=== PATIENT | female | born 1935 | race Caucasian/White ===

== ENCOUNTER 2018-01-05 08:27 | Outpatient (RCR) | payer MEDICARE, OTHER, SELFPAY ==
[2017-12-29 09:52] LABS: International Normalized Ratio 1.6; Prothrombin Time (Protime)PT. 18.6 SECONDS (11.7-14.9)
[2018-01-05 10:12] LABS: International Normalized Ratio 2.3; Prothrombin Time (Protime)PT. 25.2 SECONDS (11.7-14.9)
== END 2018-01-05 10:00 | disposition home or self-care (01) ==
LOC: LAB 08:27
PROVIDERS: Internal Medicine Cardiovascular Disease; Family Provider Family Medicine; PCP Family Medicine; Visit Provider Internal Medicine Cardiovascular Disease
DX: I48.0 Paroxysmal atrial fibrillation (principal); Z79.01 Long term (current) use of 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s
CPT/HCPCS: 36415; 85610

== ENCOUNTER 2018-01-19 08:23 | Outpatient (RCR) | payer MEDICARE, OTHER, SELFPAY ==
[2018-01-19 10:32] LABS: International Normalized Ratio 2.4; Prothrombin Time (Protime)PT. 26.3 SECONDS (11.7-14.9)
== END 2018-01-19 10:00 | disposition home or self-care (01) ==
LOC: LAB 08:23
PROVIDERS: Family Provider Family Medicine; PCP Family Medicine; Visit Provider Internal Medicine Cardiovascular Disease
DX: I48.0 Paroxysmal atrial fibrillation (principal); Z79.01 Long term (current) use of 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s
CPT/HCPCS: 36415; 85610

== ENCOUNTER → 2018-02-19 09:38 | Outpatient (CLI) | payer MEDICARE, OTHER, SELFPAY ==
[2018-02-19 12:42] LABS: Absolute Lymphocyte Count 1.36 X10^3/ul (0.83-4.51); Absolute Neutrophil Count 2.3 X10^3/uL (2.0-7.7); Basophil# 0.02 X10^3/uL; Basophil% 0.5 % (0-1); Eosinophil# 0.08 X10^3/uL; Hematocrit 36.9 % (37-47); Hemoglobin 12.1 g/dl (12.0-15.0); Lymphocyte # 1.36 X10^3/ul (4.0); Lymphocyte % 33.3 % (19-41); Mean Corp Hgb Conc 32.8 g/gl (32-36); Mean Corpuscular Hgb 31.7 pg (27.0-32.0); Mean Corpuscular Volume 96.6 fL (81-99); Mean Platelet Vol. 10.1 fl (6.2-12.0); Monocyte# 0.34 X10^3/uL; Monocyte% 8.3 % (0-10); Neutrophil # 2.28 X10^3/uL (2.7-7.7); Neutrophil % 55.9 % (47-70); POSITIVE COUNT NO; POSITIVE DIFFERENTIAL NO; POSITIVE MORPHOLOGY NO; Platelet Count 218 K/mm3 (150-450); RBC Distribution Width CV 13.2 % (11.6-14.6); Red Blood Count 3.82 M/mm3 (4.2-5.4); White Blood Count 4.1 K/mm3 (4.4-11.0)
[2018-02-19 12:49] LABS: Vitamin B12 1745 pg/mL (211-911); Vitamin D,25 Hydroxy 76.8 ng/mL (29.95-100.01)
[2018-02-19 12:57] LABS: ALB/GLOB Ratio 1.2 RATIO (0.9-2.4); AST(SGOT) 18 U/L (15-37); Alanine Aminotransfer ALT/SGPT 24 U/L (13-56); Albumin, Serum 3.8 g/dL (3.2-5.0); Alkaline Phosphatase 85 U/L (45-117); Anion Gap 7 (5-15); BUN 13 mg/dL (7-18); BUN/Creat Ratio 17.6 RATIO (10-20); Calcium,Total 9.1 mg/dL (8.5-10.1); Chloride 105 mmol/L (98-107); Cholesterol 153 mg/dL (200); Creatinine, Serum 0.74 mg/dL (0.55-1.02); EST Glomerular Filtration Rate 80 mL/min (>60); Est Glom Filt Rate - Afr Amer 97 mL/min (>60); Globulin 3.3 g/dL (2.2-4.2); Glucose 87 mg/dL (74-106); High Density Lipoprotein 48 mg/dL; Potassium 4.4 mmol/L (3.5-5.1); Protein, Total 7.1 g/dL (6.4-8.2); Sodium Level 141 mmol/L (136-145); T4 Free Direct 1.57 ng/dL (0.76-1.46); Thyroid Stim Hormone (TSH) 1.85 uIU/mL (0.358-3.74); Triglycerides 92 mg/dL; Very Low Density Lipoprotein 18 mg/dL (5-40)
== END ==
PROVIDERS: Visit Provider Family Medicine
DX: Z00.01 Encounter for general adult medical examination with abnormal findings (principal); I10 Essential (primary) hypertension; E78.5 Hyperlipidemia, unspecified; E03.9 Hypothyroidism, unspecified; E55.9 Vitamin D deficiency, unspecified; R79.89 Other specified abnormal findings of blood chemistry
CPT/HCPCS: 36415; 80053; 80061; 82306; 82607; 84439; 84443; 85025

== ENCOUNTER 2018-02-23 08:26 | Outpatient (RCR) | payer MEDICARE, OTHER, SELFPAY ==
[2018-02-09 11:12] LABS: International Normalized Ratio 1.7; Prothrombin Time (Protime)PT. 19.8 SECONDS (11.7-14.9)
[2018-02-23 10:56] LABS: International Normalized Ratio 2.4; Prothrombin Time (Protime)PT. 26.6 SECONDS (11.7-14.9)
== END 2018-02-23 10:00 | disposition home or self-care (01) ==
LOC: MTLAB 08:26
PROVIDERS: Family Provider Family Medicine; PCP Family Medicine; Referring Provider Internal Medicine Cardiovascular Disease; Visit Provider Internal Medicine Cardiovascular Disease
DX: I48.0 Paroxysmal atrial fibrillation (principal); Z79.01 Long term (current) use of 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s
CPT/HCPCS: 36415; 85610

== ENCOUNTER 2018-04-06 07:42 | Outpatient (RCR) | payer MEDICARE, OTHER, SELFPAY ==
[2018-03-09 10:35] LABS: International Normalized Ratio 2.2; Prothrombin Time (Protime)PT. 24.5 SECONDS (11.7-14.9)
[2018-04-06 10:16] LABS: International Normalized Ratio 2.2; Prothrombin Time (Protime)PT. 24.5 SECONDS (11.7-14.9)
== END 2018-04-06 08:00 | disposition home or self-care (01) ==
LOC: MTLAB 07:42
PROVIDERS: Family Provider Family Medicine; PCP Family Medicine; Referring Provider Internal Medicine Cardiovascular Disease; Visit Provider Internal Medicine Cardiovascular Disease
DX: I48.0 Paroxysmal atrial fibrillation (principal); Z79.01 Long term (current) use of 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s
CPT/HCPCS: 36415; 85610

== ENCOUNTER 2018-04-17 06:11 | Day surgery (SDC) | payer MEDICARE, OTHER, SELFPAY ==
[2018-02-27 13:15] VITALS: BMI 27.8
--- NOTE | 2018-04-17 | COLBX_PTH ---
PATIENT: ELIZABETH CASTRO LOC: EN U#:[id number] AGE/SX: 82/F ROOM: RE04/17/[address]: Dr. Antoni Valerio MD : 1935 BED: DIS: 04/17/2018 SPEC #: [id number] RECD: 04/17/18 13:16 STATUS: JANICE RONAN #: [id number] AUSTEN: 04/17/18 00:[address]: Antoni Valerio DEPT: SURGICAL PATHOLOGY RECD BY: Ministerio Michelle ENTERED: 04/17/18 13:17 SP TYPE: COLON BX OTHR DR: Dr. Luis M Lama DO Tissues: Sigmoid colon biopsy Procedures: Surgery Specimen Level IV HEADER OPERATION: Colonoscopy PRE-OP DIAGNOSIS: Screening, family history of colon cancer TISSUE SUBMITTED: Biopsy polyp mid sigmoid MICROSCOPIC DIAGNOSIS Polyp mid sigmoid, biopsy: Tubular adenoma. SJ:toña 04/18/18 MICROSCOPIC DESCRIPTION Slides are reviewed. GROSS DESCRIPTION Received in fixative is one container labeled with the patient's name and designated biopsy polyp mid sigmoid. The specimen consists of multiple irregular fragments of light wynn soft tissue that in aggregate measure 0.4 x 0.4 x 0.1 cm. The specimen is totally submitted in one cassette. / SJ:toña 04/17/18 TC:1 CPT: 35345
--- NOTE | 2018-04-17 06:26 | PCM.HP.STD ---
Problem List (1) Family history of colon cancer in mother Status: Acute History of Present Illness Date of Admission: 04/17/18 The patient is a 82 year old F who I saw in the office on February 27, 2018. She presented at that time for consideration of screening colonoscopy based upon family history of her mother having had colon cancer. The patient's most recent colonoscopy was 2008. Because of the cystocele rectocele she did have a barium enema in 2011 demonstrating diverticulosis. She has had some nonspecific intermittent right lower quadrant pain. She has had a recent cardiac ablation performed at [facility] for atrial fibrillation. She for the past year was on Xarelto and more recently has been converted over to Coumadin. She denies bright red blood per rectum or melena. 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) Z79.01 LETICIA (obstructive sleep apnea) (Chronic) Hypertension (Chronic) I10 Hypercholesterolemia (Chronic) E78.00 Paroxysmal A-fib (Chronic) I48.0 Excessive sleepiness G47.10 Family history of premature coronary heart disease Z82.49 GERD (gastroesophageal reflux disease) K21.9 Long-term use of high-risk medication Z79.899 Nonsustained ventricular tachycardia I47.2 Obstructive sleep apnea G47.33 Palpitations R00.2 Patent foramen ovale Q21.1 Peripheral neuropathy G62.9 Snoring R06.83 Supraventricular tachycardia I47.1 H/O: hysterectomy Z90.710 Chest pain, unspecified R07.9 Allergies enoxaparin [From Lovenox] Allergy (Verified 04/16/18 09:02) Rash Sulfa (Sulfonamide Antibiotics) Allergy (Verified 04/16/18 09:02) Hives Home Medications: Ambulatory Orders Medication Instructions Recorded Cholecalciferol (Vitamin D3) 5,000 unit PO DAILY 09/12/16 [Vitamin D3] Latanoprost 0.005% [Xalatan 1 drp QHS 09/12/16 Opthalmic] Levothyroxine [Synthroid] 75 mcg PO DAILY 09/12/16 Losartan Potassium [Cozaar] 100 mg PO DAILY 09/12/16 Timolol 0.25% [Timoptic] 1 drp EACH EYE BID 09/12/16 levomefolate Ca 3 mg-B6 35 1 cap PO .daily ea 04/19/17 mg-meB12 2 mg-algal oil 90.314 mg capsule polyethylene glycol 3350 17 17 g PO QDAY PRN 04/19/17 gram/dose oral powder simvastatin 20 mg tablet 20 mg PO QODAY #45 tab 10/03/17 carvedilol 6.25 mg tablet 6.25 mg PO BID #180 tab 12/29/17 Warfarin Sodium [Coumadin] 4 mg PO SUMOTUWETHSA 04/16/18 Warfarin [Coumadin ([facility])] 6 mg PO FR 04/16/18 Surgical History: Surgical History (Last Reviewed 02/27/18 @ 13:15 by Jazmine Cohen) History of radiofrequency ablation procedure for cardiac arrhythmia (Chronic) Onset Date: ~08/17/17 Z98.890 @ [facility] [address] Shaun Rubio 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 teeth started breaking at the roots, patient got a couple crowns and is getting a bridge H/O section Z98.891 History of total right knee replacement Z96.651 S/P appendectomy Z90.49 S/P arthroscopic surgery of left knee Z98.890 S/P excision of lipoma Z98.890, Z86.018 S/P lateral meniscal repair Z98.890 Smoking Status: Former smoker Tobacco Use: Non-smoker Review of Systems Constitutional: Denies: Anorexia HEENT: Denies: Difficulty Swallowing Cardiovascular: Denies: Chest Pain Respiratory: Denies: Cough Gastrointestinal: Denies: Abdominal Pain, Melena Endocrine: Denies: Change in Body Habitus VTE Information - Inpt Only VTE Present on Admission: No - Physical Exam General: Alert, Oriented x3, Cooperative, No apparent distress HEENT: Atraumatic Oral: Moist Mucosa Neck: Supple Lungs: Clear to auscultation Cardiovascular: Regular rate, Regular Rhythm Abdomen: Bowel Sounds Present, Soft, Non Tender Extremities: No Calf Tenderness Psych/Mental Status: Normal Affect Body Mass Index (BMI) 27.8 Assessment/Plan All Active Problems (Last Reviewed 02/27/18 @ 13:15 by Jazmine Cohen) Family history of colon cancer in mother (Acute) I recommended the patient a screening colonoscopy with possible biopsy or polypectomy as indicated. This is based upon family history with her mother having had colon cancer. The patient was to hold her Coumadin for 2 days preprocedure. We will proceed as noted. Antoni Valerio M.D., F.A.C.S.
--- NOTE | 2018-04-17 06:29 | HP.PCM_ITS ---
Problem List (1) Family history of colon cancer in mother Status: Acute History of Present Illness Date of Admission: 04/17/18 The patient is a 82 year old F who I saw in the office on February 27, 2018. She presented at that time for consideration of screening colonoscopy based upon family history of her mother having had colon cancer. The patient's most recent colonoscopy was 2008. Because of the cystocele rectocele she did have a barium enema in 2011 demonstrating diverticulosis. She has had some nonspecific intermittent right lower quadrant pain. She has had a recent cardiac ablation performed at [facility] for atrial fibrillation. She for the past year was on Xarelto and more recently has been converted over to Coumadin. She denies bright red blood per rectum or melena. 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.01 LETICIA (obstructive sleep apnea) (Chronic) Hypertension (Chronic) I10 Hypercholesterolemia (Chronic) E78.00 Paroxysmal A-fib (Chronic) I48.0 Excessive sleepiness G47.10 Family history of premature coronary heart disease Z82.49 GERD (gastroesophageal reflux disease) K21.9 Long-term use of high-risk medication Z79.899 Nonsustained ventricular tachycardia I47.2 Obstructive sleep apnea G47.33 Palpitations R00.2 Patent foramen ovale Q21.1 Peripheral neuropathy G62.9 Snoring R06.83 Supraventricular tachycardia I47.1 H/O: hysterectomy Z90.710 Chest pain, unspecified R07.9 Allergies enoxaparin [From Lovenox] Allergy (Verified 04/16/18 09:02) Rash Sulfa (Sulfonamide Antibiotics) Allergy (Verified 04/16/18 09:02) Hives Home Medications: Ambulatory Orders Medication Instructions Recorded Cholecalciferol (Vitamin D3) 5,000 unit PO DAILY 09/12/16 [Vitamin D3] Latanoprost 0.005% [Xalatan 1 drp QHS 09/12/16 Opthalmic] Levothyroxine [Synthroid] 75 mcg PO DAILY 09/12/16 Losartan Potassium [Cozaar] 100 mg PO DAILY 09/12/16 Timolol 0.25% [Timoptic] 1 drp EACH EYE BID 09/12/16 levomefolate Ca 3 mg-B6 35 1 cap PO .daily ea 04/19/17 mg-meB12 2 mg-algal oil 90.314 mg capsule polyethylene glycol 3350 17 17 g PO QDAY PRN 04/19/17 gram/dose oral powder simvastatin 20 mg tablet 20 mg PO QODAY #45 tab 10/03/17 carvedilol 6.25 mg tablet 6.25 mg PO BID #180 tab 12/29/17 Warfarin Sodium [Coumadin] 4 mg PO SUMOTUWETHSA 04/16/18 Warfarin [Coumadin ([facility])] 6 mg PO FR 04/16/18 Surgical History: Surgical History (Last Reviewed 02/27/18 @ 13:15 by Jazmine Cohen) History of radiofrequency ablation procedure for cardiac arrhythmia (Chronic) Onset Date: ~08/17/17 Z98.890 @ [facility] Dr Shaun Rubio 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 teeth started breaking at the roots, patient got a couple crowns and is getting a bridge H/O section Z98.891 History of total right knee replacement Z96.651 S/P appendectomy Z90.49 S/P arthroscopic surgery of left knee Z98.890 S/P excision of lipoma Z98.890, Z86.018 S/P lateral meniscal repair Z98.890 Smoking Status: Former smoker Tobacco Use: Non-smoker Review of Systems Constitutional: Denies: Anorexia HEENT: Denies: Difficulty Swallowing Cardiovascular: Denies: Chest Pain Respiratory: Denies: Cough Gastrointestinal: Denies: Abdominal Pain, Melena Endocrine: Denies: Change in Body Habitus VTE Information - Inpt Only VTE Present on Admission: No - Physical Exam General: Alert, Oriented x3, Cooperative, No apparent distress HEENT: Atraumatic Oral: Moist Mucosa Neck: Supple Lungs: Clear to auscultation Cardiovascular: Regular rate, Regular Rhythm Abdomen: Bowel Sounds Present, Soft, Non Tender Extremities: No Calf Tenderness Psych/Mental Status: Normal Affect Body Mass Index (BMI) 27.8 Assessment/Plan All Active Problems (Last Reviewed 02/27/18 @ 13:15 by Jazmine Cohen) Family history of colon cancer in mother (Acute) I recommended the patient a screening colonoscopy with possible biopsy or polypectomy as indicated. This is based upon family history with her mother having had colon cancer. The patient was to hold her Coumadin for 2 days preprocedure. We will proceed as noted. Antoni Valerio M.D., F.A.C.S.
[2018-04-17 06:56] LABS: Prothrombin Time Fingerstick 19.4 SEC (11.9-14.4)
[2018-04-17 06:59] VITALS: BP 127/72; PULSE 64; RESP 16; TEMP 36.7; O2SAT 100; BMI 27.9
[2018-04-17 07:57] VITALS: BP 107/50; BP 127/72; PULSE 65; RESP 16; TEMP 36.4; O2SAT 99
--- NOTE | 2018-04-17 08:01 | OP.ENDO_ITS ---
Patient Name: Sasha Cheatham Procedure Date: 04/17/2018 7:24 AM Date of : 1935 Age: 82 Procedure: Colonoscopy Indications: Family history of colon cancer in a first-degree relative Providers: Antoni Valerio MD Referring MD: Antoni Valerio MD Medicines: See the Anesthesia note for documentation of the administered medications Patient Profile: Last Colonoscopy: 2008. Complications: No immediate complications. Procedure: Pre-Anesthesia Assessment: - Prior to the procedure, a History and Physical was performed, and patient medications and allergies were reviewed. The patient's tolerance of previous anesthesia was also reviewed. The risks and benefits of the procedure and the sedation options and risks were discussed with the patient. All questions were answered, and informed consent was obtained. Prior Anticoagulants: The patient has taken no previous 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 or antiplatelet agents. ASA Grade Assessment: II - A patient with mild systemic disease. After reviewing the risks and benefits, the patient was deemed in satisfactory condition to undergo the procedure. After I obtained informed consent, the scope was passed under direct vision. Throughout the procedure, the patient's blood pressure, pulse, and oxygen saturations were monitored continuously. The pediatric colonoscope was introduced through the anus and advanced to the cecum, identified by appendiceal orifice and ileocecal valve. The colonoscopy was performed without difficulty. The patient tolerated the procedure well. The quality of the bowel preparation was good. The ileocecal valve and the appendiceal orifice were photographed. Scope In: 7:34:46 AM Scope Withdrawal Time 0 hours 16 minutes 13 seconds Scope Out: 7:55:12 AM Total Procedure Duration Time 0 hours 20 minutes 26 seconds Findings: Hemorrhoids were found on perianal exam. Multiple diverticula were found in the sigmoid colon and descending colon. A 3 mm polyp was found in the mid sigmoid colon. The polyp was sessile. The polyp was removed with a cold biopsy forceps. Resection and retrieval were complete. Impression: - Hemorrhoids found on perianal exam. - Diverticulosis in the sigmoid colon and in the descending colon. - One 3 mm polyp in the mid sigmoid colon, removed with a cold biopsy forceps. Resected and retrieved. This was on a sharp curvature and very difficult to access. Multiple biopsies obtained Recommendation: - Resume previous diet. - Continue present medications. - Repeat colonoscopy in 5 years for surveillance. - Telephone my office for pathology results in 1 week. Procedure Code(s): --- Professional --- 15735, Colonoscopy, flexible; with biopsy, single or multiple Diagnosis Code(s): --- Professional --- K64.9, Unspecified hemorrhoids D12.5, Benign neoplasm of sigmoid colon Z80.0, Family history of malignant neoplasm of digestive organs K57.30, Diverticulosis of large intestine without perforation or abscess without bleeding CPT copyright 2017 [employer]. All rights reserved. The codes documented in this report are preliminary and upon certified medical coder review may be revised to meet current compliance requirements. Antoni Valerio MD 04/17/2018 8:00:34 AM This report has been signed electronically. Number of Addenda: 0 Note Initiated On: 04/17/2018 7:24 AM
[2018-04-17 08:03] VITALS: BP 127/72; BP 92/76; PULSE 67; RESP 18; O2SAT 99
[2018-04-17 08:08] VITALS: BP 123/64; BP 127/72; PULSE 67; RESP 16; O2SAT 99
[2018-04-17 08:15] VITALS: BP 127/72; BP 132/58; PULSE 68; RESP 16; TEMP 36.2; O2SAT 100
[2018-04-17 08:24] VITALS: BP 127/72
--- OUTSIDE RECORDS SUMMARY | 2018-06-03 05:09 | XMS RPT_ITS ---
:1935 Author Organization OHIP Support Name Relationship Address Phone SIVA CHEATHAM Unavailable [address] + [address] [place] [address] LESLI, JOE Unavailable [address] + [place] [address] R Unavailable Unavailable Unavailable EDINGTON, SIVA Unavailable [address] + [address] [place] [address] LESLI, JOE Unavailable [address] + [place] [address] R Unavailable Unavailable Unavailable EDINGTON, SIVA Unavailable [address] + [address] [place] [address] LESLI, JOE Unavailable [address] + [place] [address] R Unavailable Unavailable Unavailable EDINGTON, SIVA Unavailable [address] + [address] [place] [address] LESLI, JOE Unavailable [address] + [place] [address] R Unavailable Unavailable Unavailable EDINGTON, SIVA Unavailable [address] + [address] [place] [address] LESLI, JOE Unavailable [address] + [place] [address] R Unavailable Unavailable Unavailable EDINGTON, SIVA Unavailable [address] + [address] [place] [address] LESLI, JOE Unavailable [address] + [place] [address] R Unavailable Unavailable Unavailable EDINGTON, SIVA Unavailable [address] + [address] [place] [address] LESLI, JOE Unavailable [address] + [place] [address] R Unavailable Unavailable Unavailable EDINGTON, SIVA Unavailable [address] [facility] [address] [place] [address] LESLI JOE Unavailable [address] + [place] [address] R Unavailable Unavailable Unavailable EDINGTON, SIVA Unavailable [address] [facility] + [address] [place] [address] LESLI JOE Unavailable [address] + [place] [address] R Unavailable Unavailable Unavailable EDINGTON, SIVA Unavailable [address] [facility] + [address] [place] [address] LESLI JOE Unavailable [address] + [place] [address] R Unavailable Unavailable Unavailable EDINGTON, SIVA Unavailable [address] [facility] + [address] [place] [address] LESLI JOE Unavailable [address] + [place] [address] R Unavailable Unavailable Unavailable Care Team Providers Name Role Phone SHAUN RUBIO Referring Unavailable SHAUN RUBIO Referring Unavailable SHAUN RUBIO Referring Unavailable LIVIER BROWN ([facility]) Attending Unavailable SHAUN RUBIO Referring Unavailable SHAUN RUBIO Referring Unavailable SHAUN RUBIO Admitting Unavailable SHAUN RUBIO Attending Unavailable SHAUN RUBIO Referring Unavailable SHAUN RUBIO Referring Unavailable SHAUN RUBIO Referring Unavailable SHAUN RUBIO Referring Unavailable SHAUN RUBIO Attending Unavailable SHAUN RUBIO Referring Unavailable SHAUN RUBIO Referring Unavailable Antoni Valerio Attending Unavailable KelbyLuis M Primary Care Unavailable Referred, Self Attending Unavailable Subhash Maher Attending Unavailable Subhash Maher Referring Unavailable Kelby, Luis M Primary Care Unavailable Subhash Maher Attending Unavailable Subhash Maher Referring Unavailable KelbyLuis M hood Primary Care Unavailable Subhash Maher Attending Unavailable Subhash Maher Referring Unavailable Kelby, Luis M Primary Care Unavailable Subhash Maher Attending Unavailable Subhash Maher Referring Unavailable Kelby, Luis M Primary Care Unavailable Cebul, Antoni Attending Unavailable Cebul, Antoni Referring Unavailable Kelby, Luis M Primary Care Unavailable Subhash Maher Attending Unavailable Subhash Maher Referring Unavailable Kelby, Luis M Primary Care Unavailable Cebul, Antoni Attending Unavailable Kelby, Luis M Referring Unavailable Kelby, Luis M Attending Unavailable Subhash Maher Attending Unavailable Subhash Maher Referring Unavailable Kelby, Luis M Primary Care Unavailable PROBLEMS PROBLEMS DATE TYPE CONDITION / CODE ATTENDING STATUS SOURCE 05/07/2018 Unknown I48.0 - Paroxysmal Subhash Maher Active [facility] atrial fibrillation Community / I48.0(ICD-10) Hospital Repository 05/22/2018 Unknown Z80.0 - Family CebuAntoni daniel Active [place] history of malignant Community neoplasm of Hospital digestive organs / Repository Z80.0(ICD-10) 05/22/2018 Unknown D12.5 - Benign CebuAntoni daniel 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 [facility] colon / Hospital D12.5(ICD-10) Repository 05/22/2018 Unknown K64.9 - Unspecified CebuAntoni daniel Active [facility] hemorrhoids / [facility] K64.9(ICD-10) Hospital Repository 05/22/2018 Unknown K57.30 - CebulAntoni Active [facility] Diverticulosis of [facility] large intestine Hospital without perforation Repository or abscess without bleeding / K57.30(ICD-10) 03/08/2018 Unknown Z79.01 - oysterman Subhash Maher Active [facility] (current) use of [facility] 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s / Hospital Z79.01(ICD-10) Repository 11/29/2017 Active Encounter for NA Active [place] examination for [facility] Main normal comparison [place] and control in Repository clinical research program / Z00.6(ICD-10) 05/24/2017 Active Paroxysmal atrial NA Active [place] fibrillation / [facility] Main I48.0(ICD-10) [place] Repository PROCEDURES PROCEDURES No Procedure Records FoundRESULTS RESULTS PROTHROMBIN TIME W/INR Collected: 05/04/2018 Status: F Source: [place] 8:02 AM [facility] REPOSITORY TYPE CODE TESTS RESULT OUT OF RANGE REFERENCE UNITS LAB L300.4150 11.7-14.9 SECONDS High PROTIME 25.8 LAB L300.4200 Normal INR 2.3 Performed By: #### L300.3900 #### [place] [facility] [place], [address] HISTORY AND PHYSICAL Observed: 04/18/2018 Status: F Source: [place] [facility] 9:00 AM [facility] REPOSITORY [facility] Medical Records Department [address] [place] [address] History and Physical 04/17/18 0626 MR#: [id number] Acct: [id number] Name: ELIZABETH CHEATHAM Rep #: [id number] : 1935 82 From: Antoni Valerio MD PCP: Luis M Lama DO Status: DEP [facility] Y Location: EN Problem List (1) Family history of colon cancer in mother Status: Acute History of Present Illness Date of Admission: 04/17/18 The patient is a 82 year old F who I saw in the office on February 27, 2018. She presented at that time for consideration of screening colonoscopy based upon family history of her mother having had colon cancer. The patient's most recent colonoscopy was 2008. Because of the cystocele rectocele she did have a barium enema in 2011 demonstrating diverticulosis. She has had some nonspecific intermittent right lower quadrant pain. She has had a recent cardiac ablation performed at [facility] for atrial fibrillation. She for the past year was on Xarelto and more recently has been converted over to Coumadin. She denies bright red blood per rectum or melena. 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 use of 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 (Chronic) Z79.01 LETICIA (obstructive sleep apnea) (Chronic) Hypertension (Chronic) I10 Hypercholesterolemia (Chronic) E78.00 Paroxysmal A-fib (Chronic) I48.0 Excessive sleepiness G47.10 Family history of premature coronary heart disease Z82.49 GERD (gastroesophageal reflux disease) K21.9 Long-term use of high-risk medication Z79.899 Nonsustained ventricular tachycardia I47.2 Obstructive sleep apnea G47.33 Palpitations R00.2 Patent foramen ovale Q21.1 Peripheral neuropathy G62.9 Snoring R06.83 Supraventricular tachycardia I47.1 H/O: hysterectomy Z90.710 Chest pain, unspecified R07.9 Allergies enoxaparin [From Lovenox] Allergy (Verified 04/16/18 09:02) Rash Sulfa (Sulfonamide Antibiotics) Allergy (Verified 04/16/18 09:02) Hives Home Medications: Ambulatory Orders Medication Instructions Recorded Cholecalciferol (Vitamin D3) 5,000 unit PO DAILY 09/12/16 [Vitamin D3] Latanoprost 0.005% [Xalatan 1 drp QHS 09/12/16 Surgical History: Surgical History (Last Reviewed 02/27/18 @ 13:15 by Jazmine Cohen) History of radiofrequency ablation procedure for cardiac arrhythmia (Chronic) Onset Date: 08/17/17 Z98.890 @ [facility] [address] Shaun Rubio 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 teeth started breaking at the roots, patient got a couple crowns and is getting a bridge H/O section Z98.891 History of total right knee replacement Z96.651 S/P appendectomy Z90.49 S/P arthroscopic surgery of left knee Z98.890 S/P excision of lipoma Z98.890, Z86.018 S/P lateral meniscal repair Z98.890 Smoking Status: Former smoker Tobacco Use: Non-smoker Review of Systems Constitutional: Denies: Anorexia HEENT: Denies: Difficulty Swallowing Cardiovascular: Denies: Chest Pain Respiratory: Denies: Cough Gastrointestinal: Denies: Abdominal Pain, Melena Endocrine: Denies: Change in Body Habitus VTE Information - Inpt Only VTE Present on Admission: No - Physical Exam General: Alert, Oriented x3, Cooperative, No apparent distress HEENT: Atraumatic Oral: Moist Mucosa Neck: Supple Lungs: Clear to auscultation Cardiovascular: Regular rate, Regular Rhythm Abdomen: Bowel Sounds Present, Soft, Non Tender Extremities: No Calf Tenderness Psych/Mental Status: Normal Affect Body Mass Index (BMI) 27.8 Assessment/Plan All Active Problems (Last Reviewed 02/27/18 @ 13:15 by Jazmine Cohen) Family history of colon cancer in mother (Acute) I recommended the patient a screening colonoscopy with possible biopsy or polypectomy as indicated. This is based upon family history with her mother having had colon cancer. The patient was to hold her Coumadin for 2 days preprocedure. We will proceed as noted. Antoni Valerio M.D., F.A.C.S. 04/18/18 0900 <Electronically signed by Antoni Valerio MD> Date Antoni Valerio MD Cosigner Signature: Date (if applicable) CC: Luis M Lama DO; Antoni Valerio MD Signed OPERATIVE REPORT - Observed: 04/17/2018 Status: F Source: [place] [facility] 8:01 AM [facility] REPOSITORY [facility] Medical Records Department [address] [place] [address] Operative Report - Endoscopy MR#: [id number] Acct: [id number] Name: ELIZABETH CHEATHAM Rep #: [id number] : 1935 82 From: Antoni Valerio MD PCP: Luis M Lama DO Status: [facility] Patient Name: Elizabeth Cheatham Procedure Date: 04/17/2018 7:24 AM Date of : 1935 Age: 82 Procedure: Colonoscopy Indications: Family history of colon cancer in a first-degree relative Providers: Antoni Valerio MD Referring MD: Antoni Valerio MD Medicines: See the Anesthesia note for documentation of the administered medications Patient Profile: Last Colonoscopy: 2008. Complications: No immediate complications. Procedure: Pre-Anesthesia Assessment: - Prior to the procedure, a History and Physical was performed, and patient medications and allergies were reviewed. The patient's tolerance of previous anesthesia was also reviewed. The risks and benefits of the procedure and the sedation options and risks were discussed with the patient. All questions were answered, and informed consent was obtained. Prior Anticoagulants: The patient has taken no previous 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 or antiplatelet agents. ASA Grade Assessment: II - A patient with mild systemic disease. After reviewing the risks and benefits, the patient was deemed in satisfactory condition to undergo the procedure. After I obtained informed consent, the scope was passed under direct vision. Throughout the procedure, the patient's blood pressure, pulse, and oxygen saturations were monitored continuously. The pediatric colonoscope was introduced through the anus and advanced to the cecum, identified by appendiceal orifice and ileocecal valve. The colonoscopy was performed without difficulty. The patient tolerated the procedure well. The quality of the bowel preparation was good. The ileocecal valve and the appendiceal orifice were photographed. Scope In: 7:34:46 AM Scope Withdrawal Time 0 hours 16 minutes 13 seconds Scope Out: 7:55:12 AM Total Procedure Duration Time 0 hours 20 minutes 26 seconds Findings: Hemorrhoids were found on perianal exam. Multiple diverticula were found in the sigmoid colon and descending colon. A 3 mm polyp was found in the mid sigmoid colon. The polyp was sessile. The polyp was removed with a cold biopsy forceps. Resection and retrieval were complete. Impression: - Hemorrhoids found on perianal exam. - Diverticulosis in the sigmoid colon and in the descending colon. - One 3 mm polyp in the mid sigmoid colon, removed with a cold biopsy forceps. Resected and retrieved. This was on a sharp curvature and very difficult to access. Multiple biopsies obtained Recommendation: - Resume previous diet. - Continue present medications. - Repeat colonoscopy in 5 years for surveillance. - Telephone my office for pathology results in 1 week. Procedure Code(s): --- Professional --- 97358, Colonoscopy, flexible; with biopsy, single or multiple Diagnosis Code(s): --- Professional --- K64.9, Unspecified hemorrhoids D12.5, Benign neoplasm of sigmoid colon Z80.0, Family history of malignant neoplasm of digestive organs K57.30, Diverticulosis of large intestine without perforation or abscess without bleeding CPT copyright 2017 [employer] [employer]. All rights reserved. The codes documented in this report are preliminary and upon medical coder review may be revised to meet current compliance requirements. Antoni Valerio MD 04/17/2018 8:00:34 AM This report has been signed electronically. Number of Addenda: 0 Note Initiated On: 04/17/2018 7:24 AM 04/17/18 0800 Date Antoni Valerio MD Cosigner Signature: Date (if indicated) CC: Luis M Lama DO; Antoni Valerio MD Date Dictated: 04/17/18723 Date Transcribed: Museum Security Chief: DARRELL Signed PROTIME W/INR Collected: 04/17/2018 Status: F Source: [facility] 6:51 AM [facility] REPOSITORY TYPE CODE TESTS RESULT OUT OF REFERENCE UNITS RANGE LAB L9200.1001 11.9-14.4 SEC High PROTIME ISTAT 19.4 Result Comment: Reference Range 11.9 - 14.4 LAB L9200.2000 Normal INR ISTAT 1.70 Result Comment: Critical Value > 3.5 Performed By: #### L9200.0000 #### [facility] Point of Care [address] [place] [address] COLON BIOPSY (CHOOSE Observed: 04/17/2018 Status: F Source: [facility]) 12:00 AM [facility] REPOSITORY Patient: ELIZABETH CHEATHAM : 1935 (82/F) Acct Num: [id number] Phys: Antoni Valerio MD Unit Num: [id number] Loc: EN Specimen: [id number] Received: 04/17/18 - 1316 Spec Type: COLON BX TISSUES 1 TISSUES: Sigmoid colon biopsy GROSS DESCRIPTION Received in fixative is one container labeled with the patient's name and designated biopsy polyp mid sigmoid. The specimen consists of multiple irregular fragments of light wynn soft tissue that in aggregate measure 0.4 x 0.4 x 0.1 cm. The specimen is totally submitted in one cassette. / SJ:toña 04/17/18 TC:1 CPT: 28739 HEADER OPERATION: Colonoscopy PRE-OP DIAGNOSIS: Screening, family history of colon cancer TISSUE SUBMITTED: Biopsy polyp mid sigmoid MICROSCOPIC DESCRIPTION Slides are reviewed. MICROSCOPIC DIAGNOSIS Polyp mid sigmoid, biopsy: Tubular adenoma. SJ:toña 04/18/18 Signed Ry Del Cid 04/18/18 <signature on file> Performed By: #### PCOLBX #### [facility] [address] [place], [address] PROTHROMBIN TIME W/INR Collected: 04/06/2018 Status: F Source: [place] 7:50 AM [facility] REPOSITORY TYPE CODE TESTS RESULT OUT OF RANGE REFERENCE UNITS LAB L300.4150 11.7-14.9 SECONDS High PROTIME 24.5 LAB L300.4200 Normal INR 2.2 Performed By: #### L300.3900 #### [facility] [address] [place], [address] PROTHROMBIN TIME W/INR Collected: 03/09/2018 Status: F Source: [place] 7:53 AM [facility] REPOSITORY TYPE CODE TESTS RESULT OUT OF RANGE REFERENCE UNITS LAB L300.4150 11.7-14.9 SECONDS High PROTIME 24.5 LAB L300.4200 Normal INR 2.2 Performed By: #### L300.3900 #### [facility] [address] [place], [address] SURGERY VISIT REPORT Observed: 02/27/2018 Status: F Source: [place] 2:09 PM [facility] REPOSITORY [facility] 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 Grinding Required: No Is patient in pain?: No Allergies enoxaparin [From Lovenox] Allergy (Verified 02/27/18 13:16) Rash Sulfa (Sulfonamide Antibiotics) Allergy (Verified 02/27/18 13:16) Hives Medications Cholecalciferol (Vitamin D3) [Vitamin D3] 5,000 unit PO DAILY 09/12/16 [History Confirmed 02/27/18] Latanoprost 0.005% [Xalatan Opthalmic] 1 drp QHS 09/12/16 [History Confirmed 02/27/18] Levothyroxine [Synthroid] 75 mcg PO DAILY 09/12/16 [History Confirmed 02/27/18] Losartan Potassium [Cozaar] 100 mg PO DAILY 09/12/16 [History Confirmed 02/27/18] Timolol 0.25% [Timoptic] 1 drp EACH EYE BID 09/12/16 [History Confirmed 02/27/18] levomefolate Ca 3 mg-B6 35 mg-meB12 2 mg-algal oil 90.314 mg capsule 1 cap PO .daily ea 04/19/17 [History Confirmed 02/27/18] polyethylene glycol 3350 17 gram/dose oral powder 17 g PO QDAY PRN 04/19/17 [History Confirmed 04/19/17] simvastatin 20 mg tablet 20 mg PO QODAY #45 tab 10/03/17 [Rx Confirmed 02/27/18] carvedilol 6.25 mg tablet 6.25 mg PO BID #180 tab 12/29/17 [Rx Confirmed 02/27/18] warfarin 4 mg tablet 4 mg PO .COMPLEX #30 tab 01/19/18 [Rx Confirmed 02/27/18] PFSH Medical History USP current use of 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 (Chronic) LETICIA (obstructive sleep apnea) (Chronic) Hypertension (Chronic) Hypercholesterolemia (Chronic) Paroxysmal A-fib (Chronic) Excessive sleepiness (Chronic) Family history of premature coronary heart disease (Chronic) GERD (gastroesophageal reflux disease) (Chronic) Long-term use of high-risk medication (Chronic) Nonsustained ventricular tachycardia (Chronic) Obstructive sleep apnea (Chronic) Palpitations (Chronic) Patent foramen ovale (Chronic) Peripheral neuropathy (Chronic) Snoring (Chronic) Supraventricular tachycardia (Chronic) H/O: hysterectomy (Resolved) Chest pain, unspecified (Inactive) Surgical History History of radiofrequency ablation procedure for cardiac arrhythmia (Chronic 08/17/17) Tooth disorder (Chronic) H/O section (Resolved) History of total right knee replacement (Resolved) S/P appendectomy (Resolved) S/P arthroscopic surgery of left knee (Resolved) S/P excision of lipoma (Resolved) S/P lateral meniscal repair (Resolved) Family History Mother Cancer Colon Diabetes Sister CAD (coronary artery disease) Heart disease Diabetes Social History Smoking Status: Former smoker second hand exposure: No alcohol intake: never substance use type: does not use caffeine: No what type of physical activity do you participate in: other details: stationary bike frequency: daily seatbelt use: always do you feel safe at home: Yes HPI HPI HPI: ELIZABETH CHEATHAM, is a 82 F who presents to the office today for surgical consultation regarding colonoscopy. 82-year-old female. Her mother had colon cancer. Her most recent colonoscopy approximately 2008. Because of a cystocele rectocele she did have a barium enema in 2011. That showed diverticulosis. She has had some slight right lower quadrant abdominal pain. No fever or chills or sweats. Most recently couple months ago she had cardiac ablation treatment performed at [facility] because of atrial fibrillation. For at least the past year she has been on Xarelto and more recently converted to Coumadin. She denies bright red blood per rectum or melena. No unexpected weight loss. Her son currently is on an urgent operative waiting schedule at [facility] because of an infected aortic valve. She would like to proceed with high risk screening colonoscopy based upon direct family member. ROS General General: No weight change, appetite, fatigue, colon cancer, breast cancer or weakness HEENT HEENT: Yes eye injury and eye surgery; no difficulty swallowing, swollen glands or hoarseness Endo Endocrine: Yes thyroid disease; no diabetes mellitus, thyroid cancer, Hair loss, heat intolerance or cold intolerance Skin Skin: Yes changing moles; no rash Breast Breast: No left breast lump, right breast lump, nipple discharge, breast pain, abnormal mammogram, abnormal US or breast enlargement Musc Musculoskeletal: Yes arthritis; no back problems, rheumatoid arthritis, gout or joint pain Cardio Cardiovascular: Yes high blood pressure and atrial fibrillation; no murmur, pacemaker, heart disease, heart attack, heart stent, palpitations, shortness of breat with exertion or chest pain Psych Psychiatric: No depression, anxiety or hearing voices Resp Respiratory: No shortness of breath, No sleep apnea, No cough, No COPD, No asthma, No emphysema, No wheezing Gastro Gastrointestinal: Yes constipation, No abdominal pain, No nausea or vomiting, No diarrhea, No blood in stool, No acid reflux, No hemorrhoids, No ulcers, No gallbladder problem, No black,tarry stools Andrez Hematologic: Yes blood thinners, Yes anemia, No blood disorders, No bleeding, No blood clots Neuro Neurologic: Yes numbness, Yes tingling, No system reviewed and no additional complaints, except as docu, No as per HPI, No abnormal walking, No abnormal hearing, No abnormal movements, No abnormal speech, No behavioral changes, No burning sensations, No confusion, No seizure-like activity, No unsteadiness, No dizziness, No localized weakness, No frequent falls, No headache(s), No lack of coordination, No loss of vision, No memory loss, No other visual disturbances, No radiating pain, No restless legs, No sensory deficit, No fainting, No tremor(s), No weakness, No other Exam Const General: cooperative, healthy appearing, comfortable, no acute distress Nutritional Appearance: overweight Orientation: alert, awake, oriented x3 HENMT Head: normal to inspection Eyes General: appearance normal, both eyes and all related structures Chest Chest palpation AND inspection: normal inspection of the chest Breast Palpation: No nipple discharge Resp Effort AND Inspection: normal respiratory effort Auscultation: clear to auscultation bilaterally Cardio Rate: regular rate Rhythm: regular rhythm Heart Sounds: no murmurs GI Palpation: soft, no hepatosplenomegaly Neuro Other: Patient utilizes a cane for balance and complains of lower extremity neuropathy Extrem General: no calf tenderness Psych Affect: normal affect Assessment AND Plan Problems 1. Family history of colon cancer in mother Z80.0 Plan I have recommended the patient a colonoscopy with possible biopsy or polypectomy is indicated based upon family history of colon cancer. She is aware of the technique, benefits, risks, alternatives. She will need to delay in scheduling until she is assured that her son is performing well with his medical issues. I will have her hold her Coumadin 2 days preprocedure. We will perform this with a MiraLAX split prep. Because of her age of 82 and medical comorbidities we will utilize monitored anesthesia care. She has had an opting to ask and have questions answered. I very much appreciate the ongoing opportunity of assisting with her surgical care. Cc: Dr. Luis M Valerio M.D., F.A.C.S. Coding Level of Care Code Off vis,new,level 2 Diagnoses Family history of colon cancer in mother Z80.0 02/27/18 1409 <Electronically signed by Antoni Valerio MD> Date Antoni Valerio MD Cosigner Signature: Date (if applicable) CC: Luis M Lama DO PROTHROMBIN TIME W/INR Collected: 02/23/2018 Status: F Source: [place] 8:49 AM [facility] REPOSITORY Order Comment: Comments: STANDING ORDER Comments: STANDING ORDER TYPE CODE TESTS RESULT OUT OF RANGE REFERENCE UNITS LAB L300.4150 11.7-14.9 SECONDS High PROTIME 26.6 LAB L300.4200 Normal INR 2.4 Performed By: #### L300.3900 #### [facility] [address] [place], [address] CBC W/DIFF, AUTOMATED Collected: 02/19/2018 Status: F Source: [place] 9:40 AM [facility] REPOSITORY TYPE CODE TESTS RESULT OUT OF RANGE REFERENCE UNITS LAB L100.1000 4.4-11.0 K/mm3 Low WBC 4.1 LAB L100.1200 4.2-5.4 M/mm3 Low RBC 3.82 LAB L100.1300 12.0-15.0 g/dl Normal HGB 12.1 LAB L100.1400 37-47 % Low HCT 36.9 LAB L100.1500 81-99 fL Normal MCV 96.6 LAB L100.1600 27.0-32.0 pg Normal MCH 31.7 LAB L100.1700 32-36 g/gl Normal MCHC 32.8 LAB L100.1810 11.6-14.6 % Normal RDW CV 13.2 LAB L100.1820 35.1-43.9 fl High RDW SD 45.0 LAB L100.1900 150-450 K/mm3 Normal PLT 218 LAB L100.2000 6.2-12.0 fl Normal MPV 10.1 LAB L100.2100 47-70 % Normal NEUT% 55.9 LAB L100.2200 19-41 % Normal LY% 33.3 LAB L100.2300 0-10 % Normal MONO% 8.3 LAB L100.2400 0-5 % Normal EO% 2.0 LAB L100.2500 0-1 % Normal BASO% 0.5 LAB L100.2550 0.0-0.9 % Normal IM GRAN % 0.000 Result Comment: IG% - Immature Granulocytes (promyelocytes, myelocytes and metamyelocytes) > 1% indicates that a LEFT SHIFT is Present. LAB L100.2620 2.0-7.7 X10 3/uL Normal Absolute Neut 2.3 LAB L100.2720 0.83-4.51 X10 3/ul Normal Absolute Lymph 1.36 Performed By: #### L100.0100 #### [facility] [address] [place], [address] VITAMIN B12 Collected: 02/19/2018 Status: F Source: [place] 9:40 AM [facility] REPOSITORY TYPE CODE TESTS RESULT OUT OF REFERENCE UNITS RANGE LAB L503.0105 211-911 pg/mL High Vitamin B12 1745 Performed By: #### L503.0105, L506.1000 #### [facility] [address] [place], [address] VITAMIN D,25 HYDROXY Collected: 02/19/2018 Status: F Source: [place] 9:40 AM [facility] REPOSITORY TYPE CODE TESTS RESULT OUT OF RANGE REFERENCE UNITS LAB L506.1000 29.95-100.01 ng/mL Normal Vitamin D 76.8 25-OH Result Comment: Vitamin D 25(OH) Status Range Deficiency <20 ng/mL (50nmol/L) Insuffciency 20 - 30 ng/mL (50 - 75 nmol/L) Sufficiency 30 - 100 ng/mL (75 - 250 nmol/L) Toxicity >100 ng/mL (>250 nmol/L) Performed By: #### L503.0105, L506.1000 #### [facility] [address] [place], [address] COMPREHENSIVE METABOLIC Collected: 02/19/2018 Status: F Source: [facility] 9:40 AM [facility] REPOSITORY TYPE CODE TESTS RESULT OUT OF RANGE REFERENCE UNITS LAB L501.0100 74-106 mg/dL Normal GLU 87 Result Comment: Please note revised GLUCOSE reference range effective 2017. LAB L501.1000 7-18 mg/dL Normal BUN 13 LAB L501.1100 0.55-1.02 mg/dL Normal CREAT,SERUM 0.74 Result Comment: The validity of the calculated GFR AND GFRAA in patients over 70 years has not been determined. Clinical correlation is essential. LAB L501.1110 >60 mL/min Normal EST GFR 80 Result Comment: Non- GFR Calc LAB L501.1115 >60 mL/min Normal EST GFR - AA 97 Result Comment: GFR Calc LAB L501.1300 10-20 RATIO Normal BUN/CRE 17.6 LAB L501.1500 6.4-8.2 g/dL T Normal PROT 7.1 LAB L501.1800 3.2-5.0 g/dL Normal ALB 3.8 LAB L501.1950 2.2-4.2 g/dL Normal GLOB 3.3 LAB L501.2000 0.9-2.4 RATIO Normal A/G 1.2 LAB L501.2200 8.5-10.1 mg/dL CA Normal 9.1 LAB L501.4100 15-37 U/L Normal AST 18 LAB L501.4305 45-117 U/L Normal ALK P 85 LAB L501.4405 13-56 U/L Normal ALT 24 LAB L501.4600 0.20-1.00 mg/dL T Normal BILI 0.30 LAB L501.5300 136-145 mmol/L NA Normal 141 LAB L501.5600 3.5-5.1 mmol/L K Normal 4.4 LAB L501.5900 98-107 mmol/L CL Normal 105 LAB L501.6100 21.0-32.0 mmol/L Normal CO2 29.0 LAB L501.6200 5-15 Normal GAP 7 Performed By: #### L500.4050, L500.4100, L501.9520, L506.0400 #### [facility] [address] [place], [place], [address] LIPID PROFILE Collected: 02/19/2018 Status: F Source: [place] 9:40 AM [facility] REPOSITORY TYPE CODE TESTS RESULT OUT OF RANGE REFERENCE UNITS LAB L501.4900 200 mg/dL Normal CHOL 153 Result Comment: <200 mg/dL Desirable 200-240 mg/dL Borderline >240 mg/dL High Risk LAB L501.5000 mg/dL Normal TRIG 92 Result Comment: The drugs N-Acetylcysteine and Metamizole may falsely depress this assay. Serum Triglycerides Reference Interval Normal <150 mg/dL Borderline high 150 - 199 mg/dL High 200 - 499 mg/dL Very High > or = 500 mg/dL LAB L501.6400 mg/dL Normal HDL 48 Result Comment: The drugs N-Acetylcysteine and Metamizole may falsely depress this assay. Reference Range HDL <40 mg/dL Low HDL Cholesterol HDL >or= 60 mg/dL High HDL Cholesterol LAB L501.6500 0-130 mg/dL Normal LDL 87 LAB L501.6600 5-40 mg/dL Normal VLDL 18 Performed By: #### L500.4050, L500.4100, L501.9520, L506.0400 #### [facility] [address] [place], [place], [address] THYROID STIM HORMONE Collected: 02/19/2018 Status: F Source: [place] (TSH) 9:40 AM [facility] REPOSITORY TYPE CODE TESTS RESULT OUT OF RANGE REFERENCE UNITS LAB L501.9520 0.358-3.74 uIU/mL Normal TSH 1.85 Performed By: #### L500.4050, L500.4100, L501.9520, L506.0400 #### [facility] [address] [place], [address] T4 FREE DIRECT Collected: 02/19/2018 Status: F Source: [place] 9:40 AM [facility] REPOSITORY TYPE CODE TESTS RESULT OUT OF REFERENCE UNITS RANGE LAB L506.0400 0.76-1.46 ng/dL High T4 FREE 1.57 DIRECT Performed By: #### L500.4050, L500.4100, L501.9520, L506.0400 #### [facility] [address] [place], [address] PROTHROMBIN TIME W/INR Collected: 02/09/2018 Status: F Source: [place] 8:20 AM [facility] REPOSITORY TYPE CODE TESTS RESULT OUT OF RANGE REFERENCE UNITS LAB L300.4150 11.7-14.9 SECONDS High PROTIME 19.8 LAB L300.4200 Normal INR 1.7 Performed By: #### L300.3900 #### [facility] [address] [place], [address] PROCEDURE Observed: 01/25/2018 Status: COMPLETED Source: [place] 12:00 AM [facility] REPOSITORY HNO ID: [id number] Author: Shaun Rubio MD Service: (none) Author Type: Physician Type: Procedures Filed: 02/21/2018 8:38 AM Note Text: She has bursts of atrial tachycadias and short run of NSVT. The minimal rate of 38 was sinus bradycardia at 07:57 AM on 01/29/18. Shaun Rubio MD CNPN Observed: 01/24/2018 Status: COMPLETED Source: [place] 12:00 AM [facility] REPOSITORY Telephone (CARDMN) ELIZABETH CHEATHMA ([id number]) 1935 F Date Time Provider Department 01/24/18 SHAUN RUBIO CARDMN During your visit today, we recorded the following information about you: Carolyn Covarrubias [facility] 01/24/2018 11:03 AM Signed January 24, 2018 Patient Contact Number: [phone] (home) call home first, then mobile [phone] (cell) Patient last seen within the last year: Yes Reason For Call: Arrythmia/Palpitations Has been having symptoms of some arrhythmia off and on since last visit here after ablation. Last night had an episode of 1 hour in length. Asking if she should wear a monitor to catch what is happening? Thank you. Carolyn [id number] Lakshmi Thornton RN, RN 01/24/2018 12:08 PM Signed Contacted the patient. Since she was last seen she has had a few short episodes. Last night she had an episode that lasted for one hour. She would like to know if she should wear a monitor. Will discuss with Dr. Rubio. Opal Thornton RN, RN 01/25/2018 1:43 PM Signed Date: January 25, 2018 Time: 1:39 PM The following orders/tests have been written down, read back and confirmed as ordered by Shaun Rubio MD. Per Dr. Rubio the patient should wear a Zio. Attempted to contact the patient. Left voice message. Opal Thornton RN, RN 01/25/2018 1:43 PM Signed Addended by: LAKSHMI THORNTON RN on: 01/25/2018 01:43 PM Modules accepted: Orders Allergies As of Date: 01/24/2018 Noted Allergy Reaction LOVENOX (ENOXAPARIN SODIUM) 07/03/2012 2 - Rash SULFA (SULFONAMIDE ANTIBIOTICS) 11/02/2010 4 - Hives Date Reviewed: 11/29/2017 Reviewed by: Lakshmi (Miriam) MIRIAM Thornton - Fully Assessed Reason for Visit: Patient Update [1234] Primary Visit Diagnosis:Paroxysmal atrial fibrillation (HCC) [I48.0] Order(s):OUTSIDE VENDOR CARDIAC OUTPATIENT EXTENDED RHYTHM RECORDING (WITHOUT TELEMETRY) [[id number]] Order #: [id number]: 1 Prescriptions as of 01/24/2018 Sig: RIVAROXABAN 20 MG TABLET Take 1 tablet by mouth once d* CARVEDILOL 6.25 MG TABLET Take 6.25 mg by mouth twice d* TIMOLOL MALEATE 0.5 % EYE JOVANNY* SIMVASTATIN 20 MG TABLET Take 20 mg by mouth every 48 * * LEVOTHYROXINE 75 MCG TABLET Take 75 mcg by mouth daily be* * CHOLECALCIFEROL (VITAMIN D3) * Take by mouth once daily. * LOSARTAN 100 MG TABLET Take 1 tablet by mouth once d* * LATANOPROST 0.005 % EYE DROPS Use 1 Drop in both eyes daily* Problem List As Of Date 01/24/2018 Noted Resolved OA (osteoarthritis) [M19.90] GERD (gastroesophageal reflux disease) [K21.9] Glaucoma [H40.9] Hypothyroidism [E03.9] Hypertension [I10] Weakness of foot [M21.40] INVALID FOR* Peripheral polyneuropathy (HCC) [G62.9] INVALID FOR* Paroxysmal atrial fibrillation (HCC) [I48.0] INVALID FOR* Encounter Status:Closed by LAKSHMI THORNTON RN on 01/24/18 PROTHROMBIN TIME W/INR Collected: 01/19/2018 Status: F Source: [place] 8:27 AM [facility] REPOSITORY TYPE CODE TESTS RESULT OUT OF RANGE REFERENCE UNITS LAB L300.4150 11.7-14.9 SECONDS High PROTIME 26.3 LAB L300.4200 Normal INR 2.4 Performed By: #### L300.3900 #### [facility] [address] [place], [place], [address] PROTHROMBIN TIME W/INR Collected: 01/05/2018 Status: F Source: [place] 8:31 AM [facility] REPOSITORY TYPE CODE TESTS RESULT OUT OF RANGE REFERENCE UNITS LAB L300.4150 11.7-14.9 SECONDS High PROTIME 25.2 LAB L300.4200 Normal INR 2.3 Performed By: #### L300.3900 #### [facility] [address] [place], [address] PROTHROMBIN TIME W/INR Collected: 12/29/2017 Status: F Source: [place] 8:56 AM [facility] REPOSITORY TYPE CODE TESTS RESULT OUT OF RANGE REFERENCE UNITS LAB L300.4150 11.7-14.9 SECONDS High PROTIME 18.6 LAB L300.4200 Normal INR 1.6 Performed By: #### L300.3900 #### [facility] [address] [place], [address] TXT - BLOOD FLOW Observed: 11/29/2017 Status: F Source: [place] SCREENING 6:09 PM [facility] REPOSITORY [facility] [address] [place] [address] 11/24/17 0800 MR#: [id number] Acct: [id number] Name: LEIZABETH CHEATHAM Rep #: [id number] : 1935 82 From: Shane Case MD Attending Dr: OUT OF TOWN DOCTOR Status: REG REF Ordering Dr: Date: 11/29/17 Location: CVS Sex: F C Admitted: Reason For Study: Blood Flow Screening Carotid Duplex Ultrasound Abdominal Aorta The right maximum ICA velocity is 51/14 cm/s. The maximal outside diameter of the proximal The right ECA velocity is less than 125 cm/s. aorta measures 1.49cm x 1.52 cm in the cross- There is no plaque formation noted on the right sectional axis. side. The maximal outside diameter of the proximal The left maximum ICA velocity is 65/22 cm/s. aorta measures 1.49 cm in the longitudinal axis. The left ECA velocity is less than 125 cm/s. There is no plaque formation noted on the left side. Ankle Brachial Index The right ankle/ brachial index is 0.87. The left ankle/ brachial index is 0.92. Medical History and Assessment The heart rate is 52 beats per minute. The heart rhythm is regular. The right blood pressure is 178/90. The left blood pressure is 168/90. Medical History: HTN, Afib. Interpretation Summary Normal carotid artery screening (0 to 15% narrowing). Normal aortic ultrasound exam. The ankle/brachial index is abnormal (less than 1.0). RECOMMEND FOLLOW-UP WITH YOUR PHYSICIAN. Performed By: Jennifer Keyes, ESAU, RVT 11/29/171807 Date Shane Case MD CC: Luis M Lama DO; OUT OF TOWN DOCTOR Date Dictated: 11/24/17 0800 Date Transcribed: 11/29/171807 [employer] Chief: Signed CNOV Observed: 11/29/2017 Status: COMPLETED Source: [place] 2:15 PM [facility] REPOSITORY Office Visit (CARDMN) ELIZABETH CHEATHAM ([id number]) 1935 F Date Time Provider Department 11/29/17 2:15 PM SHAUN RUBIO CARDMN During your visit today, we recorded the following information about you: Pulse Blood pressure Weight Height 56/minute 150/80 80.7 kg 1.664 m Shaun Rubio MD, 12/14/2017 5:47 PM Addendum [facility] [place] [facility] Department of Cardiovascular Medicine SECTION OF CARDIAC PACING and ELECTROPHYSIOLOGY OUTPATIENT VISIT DATE November 29, 2017 OUTPATIENT VISIT TYPE ESTABLISHED PRIMARY CARE PHYSICIAN: Luis M Lama DO [address] [facility] [place] [address] NURSING INTAKE HISTORY: Elizabeth Cheatham is a 82 y/o female who returns for follow up after PVI ablation 08/17/2017. Her past medical history is significant for hypertension, GERD, peripheral neuropathy, sleep apnea, hypercholesterolemia and paroxysmal atrial fibrillation. During the first six weeks post ablation she had about 2-3 episodes of atrial fibrillation. The longest episode lasted a few hours. She has not had any episodes in the last two months. She denies chest pain, shortness of breath, orthopnea, cough, edema, PND, lightheadedness or syncope. PAST MEDICAL HISTORY Diagnosis Date - A-fib (HCC) - GERD (gastroesophageal reflux disease) - Glaucoma - Hypertension - Hypothyroidism - OA (osteoarthritis) - LETICIA (obstructive sleep apnea) - Paroxysmal atrial fibrillation (HCC) 05/24/2017 - PFO (patent foramen ovale) PAST SURGICAL HISTORY Procedure Laterality Date - AFIB PVI W/COMPL EP STUDY 08/2017 - CATARACT EXTRACTION HX - HYSTERECTOMY - PAST SURGICAL HISTORY OF RTK 2005 with revision - PAST SURGICAL HISTORY OF retrocele/enterocele repair December 2011 - PAST SURGICAL HISTORY OF right knee arthroplasty 2003 - PAST SURGICAL HISTORY OF ALAINA 1979 - PAST SURGICAL HISTORY OF left deltoid tumor removed - PAST SURGICAL HISTORY OF 1971 - PAST SURGICAL HISTORY OF appendectomy - PAST SURGICAL HISTORY OF TANDA 1941 - PAST SURGICAL HISTORY OF cataracts bilateral - PAST SURGICAL HISTORY OF lateral meniscal repair. - TOTAL KNEE REPLACEMENT 06/06/12 Knee replacement, total left SOCIAL HISTORY Social History Substance Use Topics - Smoking status: Former Smoker Quit date: 05/08/1965 - Smokeless tobacco: Never Used - Alcohol use No FAMILY HISTORY Problem Relation Age of Onset - Colon Cancer Mother - Other [OTHER] Father suicide - Ischemic Heart Disease Sister DE 65 - Diabetes Maternal Grandmother - No Family History Maternal Grandfather - No Known Problems Paternal Grandmother - No Family History Paternal Grandfather - Heart Sister CABGX2 - None Sister - None Sister ALLERGIES: ALLERGIES Allergen Reactions - Lovenox [Enoxaparin* Rash - Sulfa (Sulfonamide * Hives MEDICATIONS: rivaroxaban (XARELTO) 20 mg tablet Take 1 tablet by mouth once daily. she takes in AM carvedilol (COREG) 6.25 mg tablet Take 6.25 mg by mouth twice daily with meals. timolol maleate (TIMOPTIC) 0.5 % ophthalmic solution simvastatin (ZOCOR) 20 mg tablet Take 20 mg by mouth every 48 hours. levothyroxine 75 mcg tablet Take 75 mcg by mouth daily before breakfast. Cholecalciferol, Vitamin D3, (VITAMIN D-3) 2,000 unit cap Take by mouth once daily. losartan 100 mg ORAL tablet Take 1 tablet by mouth once daily. latanaprost (XALATAN) 0.005 % OPHTHALMIC ophthalmic solution Use 1 Drop in both eyes daily at bedtime. Lakshmi Thornton RN PHYSICAL EXAMINATION: BP 150/80 Pulse (!) 56 Ht 166.4 cm (5' 5.5) Wt 80.7 kg (178 lb) BMI 29.17 kg/m? Record recurrences on or prior to the follow-up date but after the date of the previous follow-up (or after ablation date if this is the first follow-up) Palpitations: Yes AFib: Undocumented Aflutter: No AT or SVT: No Arrhythmia recurrence beyond the blanking period: No If yes: date of recurrence after blanking, Not Applicable One year success off AAD: Not Applicable Arrhythmia controlled at 12 month: Not Applicable, on AAD: Not Applicable EPS Staff Tub Attendant I personally interviewed, examined, confirmed and edited the history documented by the Nurse. Assessment has been dictated. Plan has been dictated. Shaun Rubio MD November 29, 2017 Louie Maher M.D. [address] [address] NAME: ELIZABETH CHEATHAM CLINIC NO: [id number] DATE OF SERVICE: 11/29/2017 DATE OF : [address] Maher: I saw Elizabeth Cheatham in the [facility] arrhythmia center on 11/29/2017. She was seen for followup of paroxysmal atrial fibrillation. Ambulatory monitoring had demonstrated a 5% burden of atrial fibrillation, but her symptoms progressed. Treatment with flecainide caused dizziness and lightheadedness. She had daily palpitations that could last for several hours. She ultimately underwent an ablation procedure at [facility] on August 17, 2017. Following the ablation procedure, she perceived two or three episodes of atrial fibrillation in the first few weeks. Her event monitor transmissions actually showed sinus rhythm with PACs, but she probably did have some atrial fibrillation that we do not have documented. In any case, the palpitations subsided and she has been free of any subsequent symptoms. She continues to take rivaroxaban for stroke prevention. PHYSICAL EXAMINATION: Her blood pressure was 150/80 mmHg. The pulse was regular with a rate of 56 bpm. Her weight was 178 pounds. The respirations were unlabored. The chest was clear to auscultation. There were no murmurs or gallops. She had no edema. An ECG recorded in the office showed sinus rhythm and was normal. ASSESSMENT: Ms. Cheatham seems to be doing quite well following her ablation procedure. I think it is too early to declare long-term success, but I am encouraged by her progress. I recommended that she continue with the anticoagulation. I plan to see her for followup in nine months. Please call me if you have any questions regarding her condition. Sincerely yours, Shaun Rubio M.D. Cardiac Electrophysiology and Pacing [facility] cc: Luis M Lama DO [address] [facility] [place] [address] (Ph) Read and Approved Shuan Rubio MD December 14, 2017 5:47 PM Lakshmi Thornton RN, RN 11/29/2017 2:32 PM Signed The patient states she already took atrial fibrillation survey. Opal RYAN Referring Provider: SHAUN RUBIO [[id number]] Allergies As of Date: 11/29/2017 Noted Allergy Reaction LOVENOX (ENOXAPARIN SODIUM) 07/03/2012 2 - Rash SULFA (SULFONAMIDE ANTIBIOTICS) 11/02/2010 4 - Hives Date Reviewed: 11/29/2017 Reviewed by: Lakshmi (Miriam) MIRIAM Thornton - Fully Assessed Primary Visit Diagnosis:Paroxysmal atrial fibrillation (HCC) [I48.0] Prescriptions as of 11/29/2017 Sig: RIVAROXABAN 20 MG TABLET Take 1 tablet by mouth once d* CARVEDILOL 6.25 MG TABLET Take 6.25 mg by mouth twice d* TIMOLOL MALEATE 0.5 % EYE JOVANNY* SIMVASTATIN 20 MG TABLET Take 20 mg by mouth every 48 * * LEVOTHYROXINE 75 MCG TABLET Take 75 mcg by mouth daily be* * CHOLECALCIFEROL (VITAMIN D3) * Take by mouth once daily. * LOSARTAN 100 MG TABLET Take 1 tablet by mouth once d* * LATANOPROST 0.005 % EYE DROPS Use 1 Drop in both eyes daily* Problem List As Of Date 11/29/2017 Noted Resolved OA (osteoarthritis) [M19.90] GERD (gastroesophageal reflux disease) [K21.9] Glaucoma [H40.9] Hypothyroidism [E03.9] Hypertension [I10] Weakness of foot [M21.40] INVALID FOR* Peripheral polyneuropathy (HCC) [G62.9] INVALID FOR* Paroxysmal atrial fibrillation (HCC) [I48.0] INVALID FOR* Visit Notes: >> Lakshmi (Rn) MIRIAM Thornton MonNov 29, 2017 2:29 PM Status: Signed The patient states she already took atrial fibrillation survey. Opal RYAN Disposition: Return in 9 months (on 08/30/2018). Follow-up and Disposition History Recorded Letter Text Shaun Rubio MD Cardiac Pacing and Electrophysiology [place] [facility] Medicine [address] [place] [address] November 29, 2017 [place] [address] NAME: ELIZABETH CHEATHAM CLINIC NO: [id number] DATE OF SERVICE: 11/29/2017 DATE OF : [address] Maher: I saw Elizabeth Cheatham in the [facility] arrhythmia center on 11/29/2017. She was seen for followup of paroxysmal atrial fibrillation. Ambulatory monitoring had demonstrated a 5% burden of atrial fibrillation, but her symptoms progressed. Treatment with flecainide caused dizziness and lightheadedness. She had daily palpitations that could last for several hours. She ultimately underwent an ablation procedure at [facility] on August 17, 2017. Following the ablation procedure, she perceived two or three episodes of atrial fibrillation in the first few weeks. Her event monitor transmissions actually showed sinus rhythm with PACs, but she probably did have some atrial fibrillation that we do not have documented. In any case, the palpitations subsided and she has been free of any subsequent symptoms. She continues to take rivaroxaban for stroke prevention. PHYSICAL EXAMINATION: Her blood pressure was 150/80 mmHg. The pulse was regular with a rate of 56 bpm. Her weight was 178 pounds. The respirations were unlabored. The chest was clear to auscultation. There were no murmurs or gallops. She had no edema. An ECG recorded in the office showed sinus rhythm and was normal. ASSESSMENT: Ms. Cheatham seems to be doing quite well following her ablation procedure. I think it is too early to declare long-term success, but I am encouraged by her progress. I recommended that she continue with the anticoagulation. I plan to see her for followup in nine months. Please call me if you have any questions regarding her condition. Sincerely yours, Shaun Rubio M.D. Cardiac Electrophysiology and Pacing [facility] cc: Luis M Lama DO [address] [place], [place] [phone] (Ph) Encounter Status:Closed by SHAUN RUBIO MD on 11/29/17 PROGRESS Observed: 11/29/2017 Status: COMPLETED Source: [place] 1:44 PM [facility] REPOSITORY HNO ID: [id number] Author: Shaun Rubio MD Service: (none) Author Type: Physician Type: Progress Notes Filed: 12/14/2017 5:47 PM Note Text: [facility] [place] [facility] Department of Cardiovascular Medicine SECTION OF CARDIAC PACING and ELECTROPHYSIOLOGY OUTPATIENT VISIT DATE November 29, 2017 OUTPATIENT VISIT TYPE ESTABLISHED PRIMARY CARE PHYSICIAN: Luis M Lama DO [address] [place] [address] NURSING INTAKE HISTORY: Elizabeth Cheatham is a 82 y/o female who returns for follow up after PVI ablation 08/17/2017. Her past medical history is significant for hypertension, GERD, peripheral neuropathy, sleep apnea, hypercholesterolemia and paroxysmal atrial fibrillation. During the first six weeks post ablation she had about 2-3 episodes of atrial fibrillation. The longest episode lasted a few hours. She has not had any episodes in the last two months. She denies chest pain, shortness of breath, orthopnea, cough, edema, PND, lightheadedness or syncope. PAST MEDICAL HISTORY Diagnosis Date - A-fib (HCC) - GERD (gastroesophageal reflux disease) - Glaucoma - Hypertension - Hypothyroidism - OA (osteoarthritis) - LETICIA (obstructive sleep apnea) - Paroxysmal atrial fibrillation (HCC) 05/24/2017 - PFO (patent foramen ovale) PAST SURGICAL HISTORY Procedure Laterality Date - AFIB PVI W/COMPL EP STUDY 08/2017 - CATARACT EXTRACTION HX - HYSTERECTOMY - PAST SURGICAL HISTORY OF RTK 2005 with revision - PAST SURGICAL HISTORY OF retrocele/enterocele repair December 2011 - PAST SURGICAL HISTORY OF right knee arthroplasty 2003 - PAST SURGICAL HISTORY OF ALAINA 1979 - PAST SURGICAL HISTORY OF left deltoid tumor removed - PAST SURGICAL HISTORY OF 1971 - PAST SURGICAL HISTORY OF appendectomy - PAST SURGICAL HISTORY OF TANDA 1941 - PAST SURGICAL HISTORY OF cataracts bilateral - PAST SURGICAL HISTORY OF lateral meniscal repair. - TOTAL KNEE REPLACEMENT 06/06/12 Knee replacement, total left SOCIAL HISTORY Social History Substance Use Topics - Smoking status: Former Smoker Quit date: 05/08/1965 - Smokeless tobacco: Never Used - Alcohol use No FAMILY HISTORY Problem Relation Age of Onset - Colon Cancer Mother - Other [OTHER] Father suicide - Ischemic Heart Disease Sister [place] 65 - Diabetes Maternal Grandmother - No Family History Maternal Grandfather - No Known Problems Paternal Grandmother - No Family History Paternal Grandfather - Heart Sister CABGX2 - None Sister - None Sister ALLERGIES: ALLERGIES Allergen Reactions - Lovenox [Enoxaparin* Rash - Sulfa (Sulfonamide * Hives MEDICATIONS: rivaroxaban (XARELTO) 20 mg tablet Take 1 tablet by mouth once daily. she takes in AM carvedilol (COREG) 6.25 mg tablet Take 6.25 mg by mouth twice daily with meals. timolol maleate (TIMOPTIC) 0.5 % ophthalmic solution simvastatin (ZOCOR) 20 mg tablet Take 20 mg by mouth every 48 hours. levothyroxine 75 mcg tablet Take 75 mcg by mouth daily before breakfast. Cholecalciferol, Vitamin D3, (VITAMIN D-3) 2,000 unit cap Take by mouth once daily. losartan 100 mg ORAL tablet Take 1 tablet by mouth once daily. latanaprost (XALATAN) 0.005 % OPHTHALMIC ophthalmic solution Use 1 Drop in both eyes daily at bedtime. Lakshmi Thornton RN PHYSICAL EXAMINATION: BP 150/80 Pulse (!) 56 Ht 166.4 cm (5' 5.5) Wt 80.7 kg (178 lb) BMI 29.17 kg/m? Record recurrences on or prior to the follow-up date but after the date of the previous follow-up (or after ablation date if this is the first follow-up) Palpitations: Yes AFib: Undocumented Aflutter: No AT or SVT: No Arrhythmia recurrence beyond the blanking period: No If yes: date of recurrence after blanking, Not Applicable One year success off AAD: Not Applicable Arrhythmia controlled at 12 month: Not Applicable, on AAD: Not Applicable EPS Staff Tub Attendant I personally interviewed, examined, confirmed and edited the history documented by the Nurse. Assessment has been dictated. Plan has been dictated. Shaun Rubio MD November 29, 2017 Louie Maher M.D. [address] [address] NAME: ELIZABETH CHEATHAM CLINIC NO: [id number] DATE OF SERVICE: 11/29/2017 DATE OF : [address] Maher: I saw Elizabeth Cheatham in the [facility] arrhythmia center on 11/29/2017. She was seen for followup of paroxysmal atrial fibrillation. Ambulatory monitoring had demonstrated a 5% burden of atrial fibrillation, but her symptoms progressed. Treatment with flecainide caused dizziness and lightheadedness. She had daily palpitations that could last for several hours. She ultimately underwent an ablation procedure at [facility] on August 17, 2017. Following the ablation procedure, she perceived two or three episodes of atrial fibrillation in the first few weeks. Her event monitor transmissions actually showed sinus rhythm with PACs, but she probably did have some atrial fibrillation that we do not have documented. In any case, the palpitations subsided and she has been free of any subsequent symptoms. She continues to take rivaroxaban for stroke prevention. PHYSICAL EXAMINATION: Her blood pressure was 150/80 mmHg. The pulse was regular with a rate of 56 bpm. Her weight was 178 pounds. The respirations were unlabored. The chest was clear to auscultation. There were no murmurs or gallops. She had no edema. An ECG recorded in the office showed sinus rhythm and was normal. ASSESSMENT: Ms. Cheatham seems to be doing quite well following her ablation procedure. I think it is too early to declare long-term success, but I am encouraged by her progress. I recommended that she continue with the anticoagulation. I plan to see her for followup in nine months. Please call me if you have any questions regarding her condition. Sincerely yours, Shuan Rubio M.D. Cardiac Electrophysiology and Pacing [facility] cc: Luis M Gibbsutzman [address] [facility] [place] [address] (Ph) Read and Approved Shaun Rubio MD December 14, 2017 5:[address] PULMONARY VEIN W Observed: 11/29/2017 Status: F Source: [place] IVCON 1:25 PM [facility] REPOSITORY * * *Final Report* * * DATE OF EXAM: Nov 29 2017 1:25PM [facility] [id number] - CT PULMONARY VEIN W IVCON / PROCEDURE REASON: Paroxysmal atrial fibrillation * * * * Physician Interpretation * * * * CTA of the chest dated 11/29/2017 1:25 PM Comparison: CT from August 2017 History: 82 years old Female with history of atrial fibrillation here for follow-up after RFA/PVI of the pulmonary vein ostia. There is a concern for pulmonary venous anatomy. Technique: Multi-detector CT technology was employed (Siemens Definition Flash dual source scannerSiecol[facility] for womens Somatom Force dual source scanner). Flash mode with prospective gating was performed of the chest following the IV administration of contrast material. A low-osmolar contrast agent was used (75 cc of Omnipaque 350). Of note, there was extravasation of some unknown volume of the IV contrast bolus into the left antecubital space which was evaluated and deemed to be nonemergent given appearance. Care instructions were given to the patient prior to discharge from the CT facility. CT Dose-Length Product (DLP): [address] Dose Reduction Employed: Yes For optimization of anatomic evaluation, multiplanar reconstruction, maximum intensity projections, and advanced 3-D off-line postprocessing were performed on a dedicated stand-alone workstation under the direct supervision of the interpreting physician. RESULT: Potential study limitations: None. The chest wall, mediastinum, pericardium are unremarkable. No significant adenopathy is identified in the axilla, mediastinum, and mickey. There are scattered calcified lymph nodes within the right hilar and subcarinal mediastinum. There is dilation of the right pulmonary artery (3.4 cm) and prominence of the left pulmonary artery (2.6 cm), which can be seen with pulmonary hypertension. There is a small hiatal hernia. Lung windows within normal limits. There are several centrally calcified nodules in the right upper/lower lobes and are likely from prior granulomatous exposure. There is no pulmonary parenchymal mass, infiltrate, or pleural effusion. There is mild left atrial enlargement. VASCULAR WITH ADVANCED 3-D OFF-LINE POSTPROCESSING: The left atrium and atrial appendage show no evidence of thrombus. The left atrium receives 4 widely patent pulmonary veins without stenosis or other abnormality. The right middle vein is a branch of the right superior pulmonary vein. The coronary sinus drains into the right atrium normally and is widely patent. The aortic valve is trileaflet, with few leaflet calcifications. There are a few calcifications at the sinotubular junction. There is upper normal caliber of the ascending thoracic aorta (3.8 cm). The aortic arch is not included in this study. The descending thoracic aorta is of normal caliber. There is no acute aortic pathology, such as dissection, intramural hematoma, or contained rupture. The coronary arteries have normal origins and courses. There are scattered mild left and right coronary artery calcifications although the exam is not optimized for coronary artery evaluation. The limited images of the upper abdomen are unremarkable. Multilevel degenerative disc and endplate changes of the visualized spine. IMPRESSION: Overall stable appearance. 1. Normal pulmonary venous anatomy without pulmonary vein stenosis. 2. No left atrial or left atrial appendage thrombus. Museum Security Chief: [facility] Transcribe Date/Time: Nov 29 2017 1:29P Dictated by : JONATHAN GRIMALDO MD This examination was interpreted and the report reviewed and electronically signed by: JONATHAN GRIMALDO MD on Nov 29 2017 2:01PM EST [id number] PROGRESS Observed: 11/29/2017 Status: COMPLETED Source: [place] 1:23 PM [facility] REPOSITORY O ID: [id number] Author: Joya Ramos Ct Service: (none) Author Type: (none) Type: Progress Notes Filed: 11/29/2017 1:23 PM Note Text: Radiology Service Progress Note PATIENT NAME: Elizabeth Cheatham DATE OF SERVICE: November 29, 2017 TIME: 1:23 PM PATIENT IDENTITY VERIFICATION COMPLETED USING TWO (2) METHODS: Patient confirmed name verbally and ID band matches.. PATIENT GENDER DATA: Female. status: : No status: NO. PATIENT RELEVANT IMPLANT DATA REVIEWED: Yes RADIOLOGY DEPARTMENT: CT; Exam(s) Completed: Cardiac PERIPHERAL IV DATA: Site assessment: Clean,Dry and Intact, Site disposition Discontinued SIGNED BY: Joya Gutierrez November 29, 2017 1:23 PM PROGRESS Observed: 11/29/2017 Status: COMPLETED Source: [place] 1:01 PM [facility] REPOSITORY [facility] ID: [id number] Author: Jackie (Rn) MIRIAM Ryan Service: Radiology Author Type: Registered Nurse Type: Progress Notes Filed: 11/29/2017 1:16 PM Note Text: Radiology Service Progress Note PATIENT NAME: Elizabeth Cheatham DATE OF SERVICE: November 29, 2017 TIME: 1:01 PM PATIENT WEIGHT: 175 LBS PATIENT IDENTITY VERIFICATION COMPLETED USING TWO (2) METHODS: Patient confirmed name verbally and ID band matches.. PATIENT GENDER DATA: Female. status: : No status: NO. CONTRAST INDUCED NEPHROPATHY RISK FACTORS: Patient age > 60 years CREATININE: Creatinine Date Value Ref Range Status 08/10/2017 0.85 0.58 - 0.96 mg/dL Final 06/07/2012 0.84 0.70 - 1.40 mg/dL Final 02/15/2011 0.81 0.70 - 1.40 mg/dL Final Creatinine (POCT) Date Value Ref Range Status 08/10/2017 0.70 0.7 - 1.4 mg/dL Final eGFR-All Other Races Date Value Ref Range Status 08/10/2017 >60 . Final Comment: eGFR (Estimated GFR) Units of measure: mL/min/1.73 meters squared eGFR is derived from the reexpressed MDRD Study equation using the following parameters: serum creatinine, age, gender and race. The creatinine assay has been calibrated to be traceable to IDMS. An eGFR <60 mL/min/1.73m2 for >3 months is consistent with chronic kidney disease. Refer to KDOQI guidelines for clinical interpretation. In patients with unstable renal function, e.g. those with acute kidney injury, the eGFR may not accurately reflect actual GFR. eGFR-All Other Races (POCT) Date Value Ref Range Status 08/10/2017 >60 mL/min/1.73 m2 Final eGFR- Date Value Ref Range Status 08/10/2017 >60 Final eGFR- (POCT) Date Value Ref Range Status 08/10/2017 >60 mL/min/1.73 m2 Final P.O.C.T. RESULTS: POC done: Yes, See Lab Tab November 29, 2017 TREATMENT: No Hydration needed. ALLERGIES: Reviewed and unchanged CONTRAST ALLERGY: NO. IV SITE: Ambulatory: A peripheral IV was started in the Right antecubital site with a Angio cath: 20 gauge and diffusics. and A Saline lock was inserted per protocol IV SITE APPEARANCE: Clean,Dry and Intact SIGNED BY: Jackie Ryan RN November 29, 2017 1:01 PM ECG COMPLETE W Observed: 11/29/2017 Status: F Source: [place] INTERPRETATION 12:52 PM [facility] REPOSITORY NAME : ELIZABETH CHEATHAM PID : [id number] : 1935 Gender : Female Race : ORD : [id number] Procedure Date : Nov 29 2017 12:52:58 Edit Date : Nov 30 2017 12:02:04 Diagnosis:SINUS BRADYCARDIA WITH PREMATURE SUPRAVENTRICULAR COMPLEXES LEFT ANTERIOR FASCICULAR BLOCK ABNORMAL ECG Confirmed by GURDEEP CHUN MD ([id number]) on 11/30/2017 12:02:02 PM Ventricular Rate : 56 BPM Atrial Rate : 56 BPM P-R Interval : 122 ms QRS Duration : 100 ms Q-T Interval : 418 ms QTC Calculation(Bezet) : 403 ms P [place] : 26 degrees R [place] : -51 degrees T [place] : 25 degrees Test Reason : Location : 314 : J14 J1-4 Overread By : GURDEEP CHUN MD Edited By : GURDEEP CHUN MD Referred By : SHAUN RUBIO Acquired by : SAMUEL PINEDA PROGRESS Observed: 08/18/2017 Status: COMPLETED Source: [place] 11:45 AM [facility] REPOSITORY HNO ID: [id number] Author: Tara Jennifer Urgent.ly Service: (none) Author Type: (none) Type: Progress Notes Filed: 08/18/2017 11:46 AM Note Text: TRANSMITTER INSTRUCTIONS Patient Name: Elizabeth Cheatham Clinic Number: [id number] Fresh battery inserted in monitor Baseline recording completed Patient instructed 1.) Scheduled and Symptomatic recording instructions 2.) Usage of event button and/or transmission instructions 3.) Maintenance and care of monitor 4.) Landline availability 5.) Return unit at the end of prescribed order 6.) Call with problems [phone] OR [phone] Patient expresses good verbal understanding of instructions Tara Jennifer [employer]gent[employer]ly PROGRESS Observed: 08/18/2017 Status: COMPLETED Source: [place] 10:04 AM [facility] REPOSITORY HNO ID: [id number] Author: Roc Field (Fel) Service: Cardiovascular Medicine Author Type: Physician Type: Progress Notes Filed: 08/18/2017 10:05 AM Note Text: EP Progress Note Elizabeth Cheatham is s/p PVI with Dr. Rubio yesterday. This AM, she is in NSR. She reports some back pain that she attributes to bedrest, but groin sites are benign, otherwise no concerning symptoms. She is safe for discharge home and will follow-up with Dr. Rubio in 3-4 months. Roc Field M.D., PGY-7 Fellow, Electrophysiology Section ([facility]) Staff, Regional Cardiology Section ([place], [place], [facility], [facility]) Clinical Instructor, [facility] Pager: [phone] HOSP Observed: 08/18/2017 Status: COMPLETED Source: [place] 12:00 AM [facility] REPOSITORY Patient Update (CARDMN) ELIZABETH CHEATHAM ([id number]) 1935 F Date Time Provider Department 08/18/17 LOAN, SHAUN D CARDMN During your visit today, we recorded the following information about you: Tara Ugalde 08/18/2017 11:46 AM Signed TRANSMITTER INSTRUCTIONS Patient Name: Elizabeth Cheatham Clinic Number: [id number] Fresh battery inserted in monitor Baseline recording completed Patient instructed 1.) Scheduled and Symptomatic recording instructions 2.) Usage of event button and/or transmission instructions 3.) Maintenance and care of monitor 4.) Landline availability 5.) Return unit at the end of prescribed order 6.) Call with problems [phone] OR [phone] Patient expresses good verbal understanding of instructions Tara Ugalde Allergies As of Date: 08/18/2017 Noted Allergy Reaction LOVENOX (ENOXAPARIN SODIUM) 07/03/2012 2 - Rash SULFA (SULFONAMIDE ANTIBIOTICS) 11/02/2010 4 - Hives Date Reviewed: 08/18/2017 Reviewed by: Kiana SharmaRn) MIRIAM Diallo - Fully Assessed Reason for Visit: transmitter [Other] Primary Visit Diagnosis:Paroxysmal atrial fibrillation (HCC) [I48.0] Prescriptions as of 08/18/2017 Sig: RIVAROXABAN 20 MG TABLET Take 1 tablet by mouth once d* CARVEDILOL 6.25 MG TABLET Take 6.25 mg by mouth twice d* TIMOLOL MALEATE 0.5 % EYE JOVANNY* SIMVASTATIN 20 MG TABLET Take 20 mg by mouth every 48 * * LEVOTHYROXINE 75 MCG TABLET Take 75 mcg by mouth daily be* * CHOLECALCIFEROL (VITAMIN D3) * Take by mouth once daily. * LOSARTAN 100 MG TABLET Take 1 tablet by mouth once d* * LATANOPROST 0.005 % EYE DROPS Use 1 Drop in both eyes daily* Problem List As Of Date 08/18/2017 Noted Resolved OA (osteoarthritis) [M19.90] GERD (gastroesophageal reflux disease) [K21.9] Glaucoma [H40.9] Hypothyroidism [E03.9] Hypertension [I10] Weakness of foot [M21.40] INVALID FOR* Peripheral polyneuropathy (HCC) [G62.9] INVALID FOR* Paroxysmal atrial fibrillation (HCC) [I48.0] INVALID FOR* Encounter Status:Closed by TARA EDWARD on 08/18/17 NURSING PROG Observed: 08/17/2017 Status: COMPLETED Source: [place] 6:52 PM [facility] REPOSITORY HNO ID: [id number] Author: Kiana SharmaRn) MIRIAM Diallo Service: (none) Author Type: Registered Nurse Type: Nursing Progress Note Filed: 08/17/2017 6:53 PM Note Text: Admission/Transfer Note PATIENT NAME: Elizabeth Cheatham Patient admitted from [facility] via bed in stable condition. Actions taken: Patient oriented to room, call light function, prescribed activities, Patient rights and Quiet at night. Skin assessment done by myself and MIRIAM Blanco no breakdown noted. This note was completed by: Kiana DIALLO RN ANES POST Observed: 08/17/2017 Status: COMPLETED Source: [place] 6:33 PM [facility] REPOSITORY HNO ID: [id number] Author: Alexandru Evangelista Service: Anesthesiology Author Type: Anesthesiologist Type: Anesthesia PostOp Filed: 08/17/2017 6:33 PM Note Text: POST ANESTHESIA EVALUATION NOTE SERVICE DATE: 08/17/2017 SERVICE TIME: 6:33 PM : 1935 Vitals: 08/17/17 1409 08/17/17 1549 Temp: 36.1 ?C (97 ?F) 36.4 ?C (97.5 ?F) 08/17/17 1500 08/17/17 1515 08/17/17 1530 08/17/17 1549 BP: 161/70 186/69 158/67 155/68 08/17/17 1500 08/17/17 1515 08/17/17 1530 08/17/17 1549 Pulse: (!) 52 (!) 55 (!) 54 (!) 56 08/17/17 1500 08/17/17 1515 08/17/17 1530 08/17/17 1549 Resp: 16 20 19 19 08/17/17 1500 08/17/17 1515 08/17/17 1530 08/17/17 1549 SpO2: 99% 99% 99% 99% Validated Vital Signs: Yes POST ANES STATUS: No apparent anesthetic complications. The patient is appropriately hydrated with stable respiratory and cardiovascular status. Patient has safe and adequate airway control. The patient has appropriate pain relief and no significant post operative nausea or vomiting. The patient has achieved baseline mental status. Further assessment by Anesthesia Service: None Other Remarks: SIGNATURE: Alexandru Evangelista MD PATIENT NAME: Elizabeth Cheatham DATE: August 17, 2017 TIME: 6:33 PM PAGER/CONTACT #: [phone] PT ED Observed: 08/17/2017 Status: COMPLETED Source: [place] 3:51 PM [facility] REPOSITORY HNO ID: [id number] Author: Ccf Provider Service: (none) Author Type: Physician Type: Patient Education Filed: 08/17/2017 3:51 PM Note Text: [facility] Patient Education Report --------- Name: ELIZABETH CHEATHAM Date: 08/17/2017 Time: 3:51 PM Patient Ordered Video: Inpatient Falls from [id number] via phone number [phone] at 3:51 PM PROGRESS Observed: 08/17/2017 Status: COMPLETED Source: [place] 1:15 PM [facility] REPOSITORY HNO ID: [id number] Author: Shilo Cook (Fel) Service: Cardiovascular Medicine Author Type: Fellow Type: Progress Notes Filed: 08/17/2017 1:15 PM Note Text: Post EP Procedure Note: Procedure: Pulmonary Vein Isolation Indication: Symptomatic Paroxysmal Atrial Fibrillation Access: Left Femoral Vein (One 8 and One 9 Serbian sheaths), Right Femoral Vein (Two 8 Serbian sheaths) Complications: None Successful: Yes I/O: Estimated blood loss of 10mL Plan: - Bedrest for 4 hours, head of bed elevated at 30 degrees - Continue current medications - Aspirin 324mg po once today - Rivaroxaban 20mg po immediately following procedure - Ok to shower tomorrow. - Do not submerge groins in water for 1 week (no baths, swimming or hot tubs). - Anticipate discharge tomorrow Shilo Cook MD Electrophysiology Fellow Pager: [phone] 08/17/2017 1:15 PM CNCNPATED Observed: 08/16/2017 Status: COMPLETED Source: [place] 12:00 AM [facility] REPOSITORY Education (EPSMN) ELIZABETH CHEATHAM ([id number]) 1935 F Date Time Provider Department 08/16/17 SHAUN RUBIO EPSMN Reason for Visit: Patient Education [91] Visit Notes: >> Jeanette Ramires RN MonAug 16, 2017 12:07 PM Status: Signed THE FOLLOWING WAS EVALUATED Motivation To Learn: Eager Family/Significant Other Support: Unable to assess - Family not present Cognitive Ability: Alert and oriented Patient Learns Best By: Verbal Instruction The Following Influencing Factors Were Barriers To This Education Session: None The Following Physical Limitations Were Barriers To This Education Session: None Instruction Provided To: Patient Procedure: Pulmonary Vein Ablation/Isolation Pre-procedure information reviewed: Patient ID verified Procedure verified Physician verified Explanation of procedure Sedation level during procedure MD medication instructions from EP lab request no medications after midnight Travel instructions/restrictions Scheduling information Possible same day discharge versus overnight hospital stay Check out time Family waiting area Physician contact with family after procedure Post Procedure Expectations reviewed: Inpatient hospital stay Post procedure antiarrhythmics and anticoagulation will be discussed with Physician, nurse practitioner or Physician server assistant upon discharge Instructions for transmitting EKG to Monitoring Center 3 month follow up instructions Contact number for information and questions Patient Evaluation: Verbalizes understanding Follow Up Plan: Follow up as directed by MD. Supplemental Material Given: Patient education regarding radiation exposure Instructed By Jeanette Ramires RN. In Department of CARDIOLOGY. During your visit today, we recorded the following information about you: Allergies As of Date: 08/16/2017 Noted Allergy Reaction LOVENOX (ENOXAPARIN SODIUM) 07/03/2012 2 - Rash SULFA (SULFONAMIDE ANTIBIOTICS) 11/02/2010 4 - Hives Date Reviewed: 08/10/2017 Reviewed by: Livier Brown - Fully Assessed Prescriptions as of 08/16/2017 Sig: RIVAROXABAN 20 MG TABLET Take 1 tablet by mouth once d* CARVEDILOL 6.25 MG TABLET Take 6.25 mg by mouth twice d* TIMOLOL MALEATE 0.5 % EYE JOVANNY* SIMVASTATIN 20 MG TABLET Take 20 mg by mouth every 48 * * LEVOTHYROXINE 75 MCG TABLET Take 75 mcg by mouth daily be* * CHOLECALCIFEROL (VITAMIN D3) * Take by mouth once daily. * LOSARTAN 100 MG TABLET Take 1 tablet by mouth once d* * LATANOPROST 0.005 % EYE DROPS Use 1 Drop in both eyes daily* Encounter Status:Closed by JEANETTE RAMIRES RN on 08/16/17 CHAD Observed: 08/10/2017 Status: COMPLETED Source: [place] 1:30 PM [facility] REPOSITORY Office Visit (CARDMN) ELIZABETH CHEATHAM ([id number]) 1935 F Date Time Provider Department 08/10/17 1:30 PM LIVIER BROWN (JOHANNA) GWEN During your visit today, we recorded the following information about you: Pulse Blood pressure Weight Height 50/minute 124/76 79.4 kg 1.664 m Livier Brown APRN.CNP 08/10/2017 5:16 PM Addendum [facility] [place] [facility] Department of Cardiovascular Medicine SECTION OF CARDIAC PACING and ELECTROPHYSIOLOGY OUTPATIENT VISIT DATE August 10, 2017 OUTPATIENT VISIT TYPE ESTABLISHED PRIMARY CARE PHYSICIAN: Luis M Lama DO [address] [place] [address] CHIEF COMPLAINT: follow up HISTORY OF PRESENT ILLNESS: Ms. Cheatham is a 82 year old female who presents today for follow-up visit pre PVI scheduled for 08/17/[address] Rubio. Her past medical history is significant for hypertension, GERD, peripheral neuropathy, sleep apnea, hypercholesterolemia and paroxysmal atrial fibrillation. She was diagnosed with AF October 2016, she has had palpitations for years prior. She underwent LHC 09/2016 revealed non obstructive coronary arteries, normal LV size, wall motion and systolic function. She tried/failed Flecainide d/t SE. She continues on Xarelto, denies any missed doses in the past 3 weeks. She continues to have at least weekly PAF, likely this morning she had an episode. She is in SR now. She has symptoms of fatigue, chest pressure and occasional palpitations with PAF. ? PAST MEDICAL HISTORY Diagnosis Date - A-fib (HCC) - GERD (gastroesophageal reflux disease) - Glaucoma - Hypertension - Hypothyroidism - OA (osteoarthritis) - LETICIA (obstructive sleep apnea) - Paroxysmal atrial fibrillation (HCC) 05/24/2017 - PFO (patent foramen ovale) PAST SURGICAL HISTORY Procedure Laterality Date - CATARACT EXTRACTION HX - HYSTERECTOMY - PAST SURGICAL HISTORY OF RTK 2005 with revision - PAST SURGICAL HISTORY OF retrocele/enterocele repair December 2011 - PAST SURGICAL HISTORY OF right knee arthroplasty 2003 - PAST SURGICAL HISTORY OF ALAINA 1979 - PAST SURGICAL HISTORY OF left deltoid tumor removed - PAST SURGICAL HISTORY OF 1971 - PAST SURGICAL HISTORY OF appendectomy - PAST SURGICAL HISTORY OF TANDamp;A 1941 - PAST SURGICAL HISTORY OF cataracts bilateral - PAST SURGICAL HISTORY OF lateral meniscal repair. - TOTAL KNEE REPLACEMENT 06/06/12 Knee replacement, total left SOCIAL HISTORY Social History Substance Use Topics - Smoking status: Former Smoker Quit date: 05/08/1965 - Smokeless tobacco: Never Used - Alcohol use No FAMILY HISTORY Problem Relation Age of Onset - Colon Cancer Mother - Other [OTHER] Father suicide - Ischemic Heart Disease Sister [place] 65 - Diabetes Maternal Grandmother - No Family History Maternal Grandfather - No Known Problems Paternal Grandmother - No Family History Paternal Grandfather - Heart Sister CABGX2 - None Sister - None Sister ALLERGIES: ALLERGIES Allergen Reactions - Lovenox [Enoxaparin* Rash - Sulfa (Sulfonamide * Hives MEDICATIONS: carvedilol (COREG) 6.25 mg tablet Take 6.25 mg by mouth twice daily with meals. timolol maleate (TIMOPTIC) 0.5 % ophthalmic solution rivaroxaban (XARELTO) 20 mg tablet Take 1 tablet by mouth daily with dinner. simvastatin (ZOCOR) 20 mg tablet Take 20 mg by mouth every 48 hours. levothyroxine 75 mcg tablet Take 75 mcg by mouth daily before breakfast. Cholecalciferol, Vitamin D3, (VITAMIN D-3) 2,000 unit cap Take by mouth once daily. losartan 100 mg ORAL tablet Take 1 tablet by mouth once daily. latanaprost (XALATAN) 0.005 % OPHTHALMIC ophthalmic solution Use 1 Drop in both eyes daily at bedtime. REVIEW OF SYSTEMS: General, constitutional: Weight loss or gain- No, Fever or chills-No, Weakness-No, Trouble sleeping-No. Head, Eyes, Ears, Mouth: Headache, head injury-No, Glasses or contact lenses-y, Pain-No, Impaired vision-No, Decreased hearing-No, Ringing in ears-No, Nose bleeds-No, Dental difficulties-No, Bleeding gums-No, Dentures-No. Neck: Swelling-No, Pain-No, Stiffness-No. Respiratory: Cough-No, Spitting up blood-No, Shortness of breath-No, Wheezing or asthma-No. Musculoskeletal: Muscle or joint pain or stiffness-No, Joint swelling-No. Gastrointestinal: Difficulty swallowing-No, Heartburn-No, Change in bowel habits-No, Blood in stool, Dark black stools-No. Neurological/Psychiatric: Weakness, paralysis-No, Numbness- No, Tingling-No, Tremor-No, Nervousness or anxiety-No, Depressed mood-No, Memory loss-No. Skin: Rash-No, Itching-No. Hematological: Easy bruising-y, Easy bleeding-y. Endocrine: Heat or cold intolerance-No, Excessive sweating- No, Frequent urination-No, Frequent thirst-No. PHYSICAL EXAMINATION: BP 124/76 Pulse (!) 50 Ht 166.4 cm (5' 5.5ANDquot;) Wt 79.4 kg (175 lb) BMI 28.68 kg/m2 General: In no acute distress. Neck: no jugular venous distention,, no carotid bruits, Lungs: Clear to auscultation bilaterally, no wheezing or rhonchi. Heart: Regular rhythm, S1, S2 normal, no murmur Abdomen: Soft, nontender, bowel sounds normal, no palpable organomegaly, no bruits. Extremities: No peripheral edema Component Latest Ref Rng ANDamp; Units 08/10/2017 Glucose 74 - 99 mg/dL 95 BUN 7 - 21 mg/dL 18 Creatinine 0.58 - 0.96 mg/dL 0.85 Sodium 136 - 144 mmol/L 142 Potassium 3.7 - 5.1 mmol/L 4.5 Chloride 97 - 105 mmol/L 104 CO2 22 - 30 mmol/L 27 Anion Gap 9 - 18 mmol/L 11 Calcium 8.5 - 10.2 mg/dL 9.1 eGFR- ANDgt;60 eGFR-All Other Races . ANDgt;60 WBC 3.70 - 11.00 k/uL 4.07 RBC 3.90 - 5.20 m/uL 3.71 (L) Hemoglobin 11.5 - 15.5 g/dL 11.6 Hematocrit 36.0 - 46.0 % 35.3 (L) MCV 80.0 - 100.0 fL 95.1 MCH 26.0 - 34.0 pG 31.3 MCHC 30.5 - 36.0 g/dL 32.9 RDW-CV 11.5 - 15.0 % 12.6 Platelet Count 150 - 400 k/uL 202 MPV 9.0 - 12.7 fL 9.9 Absolute nRBC ANDlt;0.01 k/uL ANDlt;0.01 CARDIOVASCULAR MEDICINE TESTING: EKG 08/10/2017 reviewed: Sinus Alejandro V-rate 45 bpm VA 146 ms QRS 118 ms QT/QTc 454/392 ms IMPRESSION: Ms. Cheatham is a 82 year old female who presents for pre PVI office visit. PAF: Has had palpitations for year, diagnosed with AF October 2016. She has tried/failed Flecainide. When she was seen by Dr. Rubio in May, they discussed dofetilide loading vs ablation, they decided to pursue PVI. She has at least weekly, if not more, PAF episodes. She had AF this morning, but converted prior to her EKG. She has symptoms of fatigue, chest pressure and palpitations. She underwent CT of chest today as well as lab work. We discussed the procedure, possible risks/complications and recovery. We reviewed expectation after the procedure: If you experience groin pain, oozing, or growing hematoma, you should notify the office. You may still have some atrial fibrillation post procedure 8-10 weeks, it is necessary to maintain sinus rhythm as much as possible during this time, may need cardioversion if atrial fibrillation persist. For one week after the procedure 10 lbs lifting, pushing, pulling restriction. No regular exercise for one week, then start slow back into exercise program. Avoid any known triggers, ETOH and caffeine for 8-10 weeks after the procedure. On discharge you will be given a transmitter and will need to transmit weekly and if having any atrial fibrillation. Any questions or concerns call the office. Call EP lab the day prior to procedure for arrival time. CVA prophylaxis: Continues on Xarelto. Denies any missed doses in the past 3 weeks. She takes Xarelto in AM, advised not to take AM of procedure. PLAN AND RECOMMENDATIONS: 1. PVI 08/17/[address] Loan Brown APRN.HIDES INSPECTOR Addendum 08/10/2017 5:[address] of Chest IMPRESSION: 1. ?Normal pulmonary venous anatomy without pulmonary vein stenosis. 2. ?No left atrial or left atrial appendage thrombus. 3. ?Upper normal caliber of the ascending thoracic aorta (3.8 cm). 4. 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 Livier Brown APRN.JOHANNA 08/10/2017 1:24 PM Signed Call the EP lab on Monday at 11am. Nothing to eat or drink after midnight the night of the procedure. No Xarelto the AM of procedure. Referring Provider: SHAUN RUBIO [[id number]] Allergies As of Date: 08/10/2017 Noted Allergy Reaction LOVENOX (ENOXAPARIN SODIUM) 07/03/2012 2 - Rash SULFA (SULFONAMIDE ANTIBIOTICS) 11/02/2010 4 - Hives Date Reviewed: 08/10/2017 Reviewed by: Livier Brown - Fully Assessed Primary Visit Diagnosis:Paroxysmal atrial fibrillation (HCC) [I48.0] Other Visit Diagnoses:Essential hypertension [I10] Chronic anticoagulation [Z79.01] Order(s):rivaroxaban (XARELTO) 20 mg tabletTake 1 tablet by mouth once daily. she takes in AMDisp: Rfl: Prescriptions as of 08/10/2017 Sig: RIVAROXABAN 20 MG TABLET Take 1 tablet by mouth once d* CARVEDILOL 6.25 MG TABLET Take 6.25 mg by mouth twice d* TIMOLOL MALEATE 0.5 % EYE JOVANNY* SIMVASTATIN 20 MG TABLET Take 20 mg by mouth every 48 * * LEVOTHYROXINE 75 MCG TABLET Take 75 mcg by mouth daily be* * CHOLECALCIFEROL (VITAMIN D3) * Take by mouth once daily. * LOSARTAN 100 MG TABLET Take 1 tablet by mouth once d* * LATANOPROST 0.005 % EYE DROPS Use 1 Drop in both eyes daily* Problem List As Of Date 08/10/2017 Noted Resolved OA (osteoarthritis) [M19.90] GERD (gastroesophageal reflux disease) [K21.9] Glaucoma [H40.9] Hypothyroidism [E03.9] Hypertension [I10] Weakness of foot [M21.40] INVALID FOR* Peripheral polyneuropathy (HCC) [G62.9] INVALID FOR* Paroxysmal atrial fibrillation (HCC) [I48.0] INVALID FOR* Other instructions from your clinician: Call the EP lab on Monday at 11am. Nothing to eat or drink after midnight the night of the procedure. No Xarelto the AM of procedure. Prescriptions ordered this encounter Disp Refills Start End RIVAROXABAN 20 MG TABLET 08/10/2017 Class: Med Update Route: ORAL Sig: Take 1 tablet by mouth once daily. she takes in AM Medications Discontinued During This Encounter rivaroxaban (XARELTO) 20 mg tablet 0 01/02/2017 08/10/2017 Class: Med Update Route: ORAL Sig: Take 1 tablet by mouth daily with dinner. Disc: Reason for discontinue is not on file. Encounter Status:Closed by LIVIER BROWN on 08/10/17 PROGRESS Observed: 08/10/2017 Status: COMPLETED Source: [place] 12:56 PM [facility] REPOSITORY O ID: [id number] Author: Livier Brown Service: (none) Author Type: Nurse Practitioner Type: Progress Notes Filed: 08/10/2017 5:16 PM Note Text: [facility] [place] [facility] Department of Cardiovascular Medicine SECTION OF CARDIAC PACING and ELECTROPHYSIOLOGY OUTPATIENT VISIT DATE August 10, 2017 OUTPATIENT VISIT TYPE ESTABLISHED PRIMARY CARE PHYSICIAN: Luis M Lama DO [address] [place] [address] CHIEF COMPLAINT: follow up HISTORY OF PRESENT ILLNESS: Ms. Cheatham is a 82 year old female who presents today for follow-up visit pre PVI scheduled for 08/17/[address] Rubio. Her past medical history is significant for hypertension, GERD, peripheral neuropathy, sleep apnea, hypercholesterolemia and paroxysmal atrial fibrillation. She was diagnosed with AF October 2016, she has had palpitations for years prior. She underwent LHC 09/2016 revealed non obstructive coronary arteries, normal LV size, wall motion and systolic function. She tried/failed Flecainide d/t SE. She continues on Xarelto, denies any missed doses in the past 3 weeks. She continues to have at least weekly PAF, likely this morning she had an episode. She is in SR now. She has symptoms of fatigue, chest pressure and occasional palpitations with PAF. ? PAST MEDICAL HISTORY Diagnosis Date - A-fib (HCC) - GERD (gastroesophageal reflux disease) - Glaucoma - Hypertension - Hypothyroidism - OA (osteoarthritis) - LETICIA (obstructive sleep apnea) - Paroxysmal atrial fibrillation (HCC) 05/24/2017 - PFO (patent foramen ovale) PAST SURGICAL HISTORY Procedure Laterality Date - CATARACT EXTRACTION HX - HYSTERECTOMY - PAST SURGICAL HISTORY OF RTK 2005 with revision - PAST SURGICAL HISTORY OF retrocele/enterocele repair December 2011 - PAST SURGICAL HISTORY OF right knee arthroplasty 2003 - PAST SURGICAL HISTORY OF ALAINA 1979 - PAST SURGICAL HISTORY OF left deltoid tumor removed - PAST SURGICAL HISTORY OF 1971 - PAST SURGICAL HISTORY OF appendectomy - PAST SURGICAL HISTORY OF TANDA 1941 - PAST SURGICAL HISTORY OF cataracts bilateral - PAST SURGICAL HISTORY OF lateral meniscal repair. - TOTAL KNEE REPLACEMENT 06/06/12 Knee replacement, total left SOCIAL HISTORY Social History Substance Use Topics - Smoking status: Former Smoker Quit date: 05/08/1965 - Smokeless tobacco: Never Used - Alcohol use No FAMILY HISTORY Problem Relation Age of Onset - Colon Cancer Mother - Other [OTHER] Father suicide - Ischemic Heart Disease Sister [place] 65 - Diabetes Maternal Grandmother - No Family History Maternal Grandfather - No Known Problems Paternal Grandmother - No Family History Paternal Grandfather - Heart Sister CABGX2 - None Sister - None Sister ALLERGIES: ALLERGIES Allergen Reactions - Lovenox [Enoxaparin* Rash - Sulfa (Sulfonamide * Hives MEDICATIONS: carvedilol (COREG) 6.25 mg tablet Take 6.25 mg by mouth twice daily with meals. timolol maleate (TIMOPTIC) 0.5 % ophthalmic solution rivaroxaban (XARELTO) 20 mg tablet Take 1 tablet by mouth daily with dinner. simvastatin (ZOCOR) 20 mg tablet Take 20 mg by mouth every 48 hours. levothyroxine 75 mcg tablet Take 75 mcg by mouth daily before breakfast. Cholecalciferol, Vitamin D3, (VITAMIN D-3) 2,000 unit cap Take by mouth once daily. losartan 100 mg ORAL tablet Take 1 tablet by mouth once daily. latanaprost (XALATAN) 0.005 % OPHTHALMIC ophthalmic solution Use 1 Drop in both eyes daily at bedtime. REVIEW OF SYSTEMS: General, constitutional: Weight loss or gain- No, Fever or chills-No, Weakness-No, Trouble sleeping-No. Head, Eyes, Ears, Mouth: Headache, head injury-No, Glasses or contact lenses-y, Pain-No, Impaired vision-No, Decreased hearing-No, Ringing in ears-No, Nose bleeds-No, Dental difficulties-No, Bleeding gums-No, Dentures-No. Neck: Swelling-No, Pain-No, Stiffness-No. Respiratory: Cough-No, Spitting up blood-No, Shortness of breath-No, Wheezing or asthma-No. Musculoskeletal: Muscle or joint pain or stiffness-No, Joint swelling-No. Gastrointestinal: Difficulty swallowing-No, Heartburn-No, Change in bowel habits-No, Blood in stool, Dark black stools-No. Neurological/Psychiatric: Weakness, paralysis-No, Numbness-No, Tingling-No, Tremor-No, Nervousness or anxiety-No, Depressed mood-No, Memory loss-No. Skin: Rash-No, Itching-No. Hematological: Easy bruising-y, Easy bleeding-y. Endocrine: Heat or cold intolerance-No, Excessive sweating- No, Frequent urination-No, Frequent thirst-No. PHYSICAL EXAMINATION: BP 124/76 Pulse (!) 50 Ht 166.4 cm (5' 5.5) Wt 79.4 kg (175 lb) BMI 28.68 kg/m2 General: In no acute distress. Neck: no jugular venous distention,, no carotid bruits, Lungs: Clear to auscultation bilaterally, no wheezing or rhonchi. Heart: Regular rhythm, S1, S2 normal, no murmur Abdomen: Soft, nontender, bowel sounds normal, no palpable organomegaly, no bruits. Extremities: No peripheral edema Component Latest Ref Rng AND Units 08/10/2017 Glucose 74 - 99 mg/dL 95 BUN 7 - 21 mg/dL 18 Creatinine 0.58 - 0.96 mg/dL 0.85 Sodium 136 - 144 mmol/L 142 Potassium 3.7 - 5.1 mmol/L 4.5 Chloride 97 - 105 mmol/L 104 CO2 22 - 30 mmol/L 27 Anion Gap 9 - 18 mmol/L 11 Calcium 8.5 - 10.2 mg/dL 9.1 eGFR- >60 eGFR-All Other Races . >60 WBC 3.70 - 11.00 k/uL 4.07 RBC 3.90 - 5.20 m/uL 3.71 (L) Hemoglobin 11.5 - 15.5 g/dL 11.6 Hematocrit 36.0 - 46.0 % 35.3 (L) MCV 80.0 - 100.0 fL 95.1 MCH 26.0 - 34.0 pG 31.3 MCHC 30.5 - 36.0 g/dL 32.9 RDW-CV 11.5 - 15.0 % 12.6 Platelet Count 150 - 400 k/uL 202 MPV 9.0 - 12.7 fL 9.9 Absolute nRBC <0.01 k/uL <0.01 CARDIOVASCULAR MEDICINE TESTING: EKG 08/10/2017 reviewed: Sinus Alejandro V-rate 45 bpm VA 146 ms QRS 118 ms QT/QTc 454/392 ms IMPRESSION: Ms. Cheatham is a 82 year old female who presents for pre PVI office visit. PAF: Has had palpitations for year, diagnosed with AF October 2016. She has tried/failed Flecainide. When she was seen by Dr. Rubio in May, they discussed dofetilide loading vs ablation, they decided to pursue PVI. She has at least weekly, if not more, PAF episodes. She had AF this morning, but converted prior to her EKG. She has symptoms of fatigue, chest pressure and palpitations. She underwent CT of chest today as well as lab work. We discussed the procedure, possible risks/complications and recovery. We reviewed expectation after the procedure: If you experience groin pain, oozing, or growing hematoma, you should notify the office. You may still have some atrial fibrillation post procedure 8-10 weeks, it is necessary to maintain sinus rhythm as much as possible during this time, may need cardioversion if atrial fibrillation persist. For one week after the procedure 10 lbs lifting, pushing, pulling restriction. No regular exercise for one week, then start slow back into exercise program. Avoid any known triggers, ETOH and caffeine for 8-10 weeks after the procedure. On discharge you will be given a transmitter and will need to transmit weekly and if having any atrial fibrillation. Any questions or concerns call the office. Call EP lab the day prior to procedure for arrival time. CVA prophylaxis: Continues on Xarelto. Denies any missed doses in the past 3 weeks. She takes Xarelto in AM, advised not to take AM of procedure. PLAN AND RECOMMENDATIONS: 1. PVI 08/17/[address] Loan Brown, BORDER MEASURER.HIDES INSPECTOR Addendum 08/10/2017 5:[address] of Chest IMPRESSION: 1. ?Normal pulmonary venous anatomy without pulmonary vein stenosis. 2. ?No left atrial or left atrial appendage thrombus. 3. ?Upper normal caliber of the ascending thoracic aorta (3.8 cm). 4. 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 CT PULMONARY VEIN W Observed: 08/10/2017 Status: F Source: [place] 12:32 PM [facility] REPOSITORY * * *Final Report* * * DATE OF EXAM: Aug 10 2017 12:32PM [facility] [id number] - CT PULMONARY VEIN W IVCON / PROCEDURE REASON: Paroxysmal atrial fibrillation * * * * Physician Interpretation * * * * CTA of the chest dated 08/10/2017 12:32 PM Comparison: None available History: 82 years old Female with history of atrial fibrillation here for RFA/PVI of the pulmonary vein ostia. There is a concern for pulmonary venous anatomy. Technique: Multi-detector CT technology was employed ( Siemens Somatom Force dual source scanner). Flash mode with prospective gating was performed of the chest following the IV administration of contrast material. A low-osmolar contrast agent was used (75 cc of Omnipaque 350). Of note, there was extravasation of some unknown volume of the IV contrast bolus into the left antecubital space which was evaluated and deemed to be nonemergent given appearance. Care instructions were given to the patient prior to discharge from the CT facility. CT Dose-Length Product (DLP): [address] Dose Reduction Employed: Yes For optimization of anatomic evaluation, multiplanar reconstruction, maximum intensity projections, and advanced 3-D off-line postprocessing were performed on a dedicated stand-alone workstation under the direct supervision of the interpreting physician. RESULT: Potential study limitations: None. The chest wall, mediastinum, pericardium are unremarkable. No significant adenopathy is identified in the axilla, mediastinum, and mickey. There are scattered calcified lymph nodes within the right hilar and subcarinal mediastinum. There is dilation of the right pulmonary artery (3.4 cm) and prominence of the left pulmonary artery (2.6 cm), which can be seen with pulmonary hypertension. There is a small hiatal hernia. Lung windows within normal limits. There are several centrally calcified nodules in the right upper/lower lobes and are likely from prior granulomatous exposure. There is no pulmonary parenchymal mass, infiltrate, or pleural effusion. There is mild left atrial enlargement. VASCULAR WITH ADVANCED 3-D OFF-LINE POSTPROCESSING: The left atrium and atrial appendage show no evidence of thrombus. The left atrium receives 4 widely patent pulmonary veins without stenosis or other abnormality. The right middle vein is a branch of the right superior pulmonary vein. The coronary sinus drains into the right atrium normally and is widely patent. The aortic valve is trileaflet, with few leaflet calcifications. There are a few calcifications at the sinotubular junction. There is upper normal caliber of the ascending thoracic aorta (3.8 cm). The aortic arch is not included in this study. The descending thoracic aorta is of normal caliber. There is no acute aortic pathology, such as dissection, intramural hematoma, or contained rupture. The coronary arteries have normal origins and courses. There are scattered mild left and right coronary artery calcifications although the exam is not optimized for coronary artery evaluation. The limited images of the upper abdomen are unremarkable. Multilevel degenerative disc and endplate changes of the visualized spine. IMPRESSION: 1. Normal pulmonary venous anatomy without pulmonary vein stenosis. 2. No left atrial or left atrial appendage thrombus. 3. Upper normal caliber of the ascending thoracic aorta (3.8 cm). 4. Ectasia of the right pulmonary artery (3.4 cm), which can be seen with pulmonary hypertension. Museum Security Chief: PSCB Transcribe Date/Time: Aug 10 2017 12:52P Dictated by : CAITIE HENDERSON MD This examination was interpreted and the report reviewed and electronically signed by: STUART VERAS MD on Aug 10 2017 4:48PM EST [id number] PROGRESS Observed: 08/10/2017 Status: COMPLETED Source: [place] 12:30 PM [facility] REPOSITORY HNO ID: [id number] Author: Joya Gutierrez Service: (none) Author Type: (none) Type: Progress Notes Filed: 08/10/2017 12:31 PM Note Text: Radiology Service Progress Note PATIENT NAME: Elizabeth Cheatham DATE OF SERVICE: August 10, 2017 TIME: 12:30 PM PATIENT IDENTITY VERIFICATION COMPLETED USING TWO (2) METHODS: Patient confirmed name verbally and ID band matches.. PATIENT GENDER DATA: Female. status: : No status: NO. PATIENT RELEVANT IMPLANT DATA REVIEWED: Yes RADIOLOGY DEPARTMENT: CT; Exam(s) Completed: Cardiac PERIPHERAL IV DATA: Site assessment: Clean,Dry and Intact, Site disposition Discontinued SIGNED BY: Joya Gutierrez August 10, 2017 12:30 PM PROGRESS Observed: 08/10/2017 Status: COMPLETED Source: [place] 12:16 PM [facility] REPOSITORY HNO ID: [id number] Author: Sharon (Rn) MIRIAM Kennedy Service: Radiology Author Type: Registered Nurse Type: Progress Notes Filed: 08/10/2017 12:27 PM Note Text: Radiology Service Progress Note PATIENT NAME: Elizabeth Cheatham DATE OF SERVICE: August 10, 2017 TIME: 12:16 PM PATIENT WEIGHT: 175 LBS PATIENT IDENTITY VERIFICATION COMPLETED USING TWO (2) METHODS: Patient confirmed name verbally and ID band matches.. PATIENT GENDER DATA: Female. status: : No status: NO. CONTRAST INDUCED NEPHROPATHY RISK FACTORS: Patient age > 60 years CREATININE: Creatinine Date Value Ref Range Status 06/07/2012 0.84 0.70 - 1.40 mg/dL Final 02/15/2011 0.81 0.70 - 1.40 mg/dL Final Creatinine (POCT) Date Value Ref Range Status 08/10/2017 0.70 0.7 - 1.4 mg/dL Final eGFR-All Other Races Date Value Ref Range Status 06/07/2012 >60 . Final eGFR-All Other Races (POCT) Date Value Ref Range Status 08/10/2017 >60 mL/min/1.73 m2 Final eGFR- Date Value Ref Range Status 02/15/2011 >60 Final eGFR- (POCT) Date Value Ref Range Status 08/10/2017 >60 mL/min/1.73 m2 Final P.O.C.T. RESULTS: POC done: Yes, See Lab Tab August 10, 2017 TREATMENT: No Hydration needed. ALLERGIES: Reviewed and unchanged CONTRAST ALLERGY: NO. IV SITE: Ambulatory: A peripheral IV was started in the Left antecubital site with a #20 diffusics. and A Saline lock was inserted per protocol IV SITE APPEARANCE: Clean,Dry and Intact SIGNED BY: Sharon Kennedy RN August 10, 2017 12:16 PM CBC Collected: 08/10/2017 Status: F Source: [place] 12:00 PM [facility] REPOSITORY TYPE CODE TESTS RESULT OUT OF REFERENCE UNITS RANGE LAB WBC 3.70-11.00 k/uL WBC 4.07 LAB RBC 3.90-5.20 m/uL Low RBC 3.71 LAB HGB 11.5-15.5 g/dL Hemoglobin 11.6 LAB HCT 36.0-46.0 % Low Hematocrit 35.3 LAB MCV 80.0-100.0 fL MCV 95.1 LAB MCH 26.0-34.0 pG MCH 31.3 LAB MCHC 30.5-36.0 g/dL MCHC 32.9 LAB RDWCV 11.5-15.0 % RDW-CV 12.6 LAB PLTCT 150-400 k/uL Platelet Count 202 LAB MPV 9.0-12.7 fL MPV 9.9 LAB ABSNUC <0.01 k/uL Absolute nRBC <0.01 Performed By: #### CBC, BMP #### [facility] [address] [place], [place] [address] BASIC METABOLIC PANL Collected: 08/10/2017 Status: F Source: [place] 12:00 PM [facility] REPOSITORY TYPE CODE TESTS RESULT OUT OF REFERENCE UNITS RANGE LAB GLU 74-99 mg/dL Glucose 95 Result Comment: The [place] Diabetes Association (ADA) provides guidance for cutoff values for fasting glucose and random glucose. The ADA defines fasting as no caloric intake for at least 8 hours. Fas ting plasma glucose results between 100 to 125 mg/dL indicate increased risk for diabetes (prediabetes). Fasting plasma glucose results greater than or equal to 126 mg/dL meet the criteria for diagnosis of diabetes. In the absence of unequivocal hyperglycemia, results should be confirmed by repeat testing. In a patient with classic symptoms of hyperglycemia or hyperglycemic crisis, random plasma glucose results greater than or equal to 200 mg/dL meet the criteria for diagnosis of diabetes. Reference: Standards of Medical Care in Diabetes 2016, [place] Diabetes Association. Diabetes Care. 2016.39(Suppl 1). LAB BUN 7-21 mg/dL BUN 18 LAB CRET 0.58-0.96 mg/dL Creatinine 0.85 LAB NA 136-144 mmol/L Sodium 142 LAB K 3.7-5.1 mmol/L Potassium 4.5 LAB CL 97-105 mmol/L Chloride 104 LAB CO2 22-30 mmol/L CO2 27 LAB AGAP 9-18 mmol/L Anion Gap 11 LAB CA 8.5-10.2 mg/dL Calcium, Total 9.1 LAB GFRAA eGFR- Amer. >60 LAB GFRNAA . eGFR-All Other Races >60 Result Comment: eGFR (Estimated GFR) Units of measure: mL/min/1.73 meters squared eGFR is derived from the reexpressed MDRD Study equation using the following parameters: serum creatinine, age, gender and race. The creatinine assay has been calibrated to be traceable to IDMS. An eGFR <60 mL/min/1.73m2 for >3 months is consistent with chronic kidney disease. Refer to KDOQI guidelines for clinical interpretation. In patients with unstable renal function, e.g. those with acute kidney injury, the eGFR may not accurately reflect actual GFR. Performed By: #### CBC, BMP #### [facility] [address] [place], [place] [address] TYPE AND SCR (30D) Collected: 08/10/2017 Status: F Source: [place] 12:00 PM [facility] REPOSITORY TYPE CODE TESTS RESULT OUT OF REFERENCE UNITS RANGE LAB %ABR A ABO/RH(D) POSITIVE LAB % Antibody NEG Screen Performed By: #### [id number] #### [facility] [address] [place], [place] [address] HOSP Observed: 06/11/2017 Status: COMPLETED Source: [place] 12:00 AM [facility] REPOSITORY Patient:Elizabeth Cheatham MRN: <[id number]> Height:5' 5.5(1.664 m) Weight:175 lb (79.379 kg) Outpatient Medications as of 08/17/17: rivaroxaban (XARELTO) 20 mg tablet carvedilol (COREG) 6.25 mg tablet timolol maleate (TIMOPTIC) 0.5 % ophthalmic solution simvastatin (ZOCOR) 20 mg tablet levothyroxine 75 mcg tablet Cholecalciferol, Vitamin D3, (VITAMIN D-3) 2,000 unit cap losartan 100 mg ORAL tablet latanaprost (XALATAN) 0.005 % OPHTHALMIC ophthalmic solution Admission/Clinic Administered Medications as of 08/17/17: rivaroxaban 20 mg tab(s) (XARELTO) Problem List: OA (osteoarthritis) [M19.90] GERD (gastroesophageal reflux disease) [K21.9] Glaucoma [H40.9] Hypothyroidism [E03.9] Hypertension [I10] Weakness of foot [M21.40] Peripheral polyneuropathy (HCC) [G62.9] Paroxysmal atrial fibrillation (HCC) [I48.0] Allergies: Lovenox [Enoxaparin Sodium] Sulfa (Sulfonamide Antibiotics) Date Verified: 08/10/17 Lab Values Lab Value Units Date High Low POTA* 4.5 mmol/L 08/10/2017 5.1 3.7 ANDREZ* 35.3 % 08/10/2017 46.0 36.0 Progress Notes (RADIO CT SCAN [facility]): Sharon Kennedy, RN, RN 08/10/2017 12:27 PM Signed Radiology Service Progress Note PATIENT NAME: Elizabeth Cheatham DATE OF SERVICE: August 10, 2017 TIME: 12:16 PM PATIENT WEIGHT: 175 LBS PATIENT IDENTITY VERIFICATION COMPLETED USING TWO (2) METHODS: Patient confirmed name verbally and ID band matches.. PATIENT GENDER DATA: Female. status: : No status: NO. CONTRAST INDUCED NEPHROPATHY RISK FACTORS: Patient age > 60 years CREATININE: Creatinine Date Value Ref Range Status 06/07/2012 0.84 0.70 - 1.40 mg/dL Final 02/15/2011 0.81 0.70 - 1.40 mg/dL Final Creatinine (POCT) Date Value Ref Range Status 08/10/2017 0.70 0.7 - 1.4 mg/dL Final eGFR-All Other Races Date Value Ref Range Status 06/07/2012 >60 . Final eGFR-All Other Races (POCT) Date Value Ref Range Status 08/10/2017 >60 mL/min/1.73 m2 Final eGFR- Date Value Ref Range Status 02/15/2011 >60 Final eGFR- (POCT) Date Value Ref Range Status 08/10/2017 >60 mL/min/1.73 m2 Final P.O.C.T. RESULTS: POC done: Yes, See Lab Tab August 10, 2017 TREATMENT: No Hydration needed. ALLERGIES: Reviewed and unchanged CONTRAST ALLERGY: NO. IV SITE: Ambulatory: A peripheral IV was started in the Left antecubital site with a #20 diffusics. and A Saline lock was inserted per protocol IV SITE APPEARANCE: Clean,Dry and Intact SIGNED BY: Sharon Kennedy RN August 10, 2017 12:16 PM Joya Gutierrez 08/10/2017 12:31 PM Signed Radiology Service Progress Note PATIENT NAME: Elizabeth Cheatham DATE OF SERVICE: August 10, 2017 TIME: 12:30 PM PATIENT IDENTITY VERIFICATION COMPLETED USING TWO (2) METHODS: Patient confirmed name verbally and ID band matches.. PATIENT GENDER DATA: Female. status: : No status: NO. PATIENT RELEVANT IMPLANT DATA REVIEWED: Yes RADIOLOGY DEPARTMENT: CT; Exam(s) Completed: Cardiac PERIPHERAL IV DATA: Site assessment: Clean,Dry and Intact, Site disposition Discontinued SIGNED BY: Joya Gutierrez August 10, 2017 12:30 PM Progress Notes (CARD EPS MAIN): Livier Brown APRN.CNP 08/10/2017 5:16 PM Addendum [facility] [place] [facility] Department of Cardiovascular Medicine SECTION OF CARDIAC PACING and ELECTROPHYSIOLOGY OUTPATIENT VISIT DATE August 10, 2017 OUTPATIENT VISIT TYPE ESTABLISHED PRIMARY CARE PHYSICIAN: Luis M Lama DO [address] [place] [address] CHIEF COMPLAINT: follow up HISTORY OF PRESENT ILLNESS: Ms. Cheatham is a 82 year old female who presents today for follow-up visit pre PVI scheduled for 08/17/[address] Rubio. Her past medical history is significant for hypertension, GERD, peripheral neuropathy, sleep apnea, hypercholesterolemia and paroxysmal atrial fibrillation. She was diagnosed with AF October 2016, she has had palpitations for years prior. She underwent LHC 09/2016 revealed non obstructive coronary arteries, normal LV size, wall motion and systolic function. She tried/failed Flecainide d/t SE. She continues on Xarelto, denies any missed doses in the past 3 weeks. She continues to have at least weekly PAF, likely this morning she had an episode. She is in SR now. She has symptoms of fatigue, chest pressure and occasional palpitations with PAF. ? PAST MEDICAL HISTORY Diagnosis Date - A-fib (HCC) - GERD (gastroesophageal reflux disease) - Glaucoma - Hypertension - Hypothyroidism - OA (osteoarthritis) - LETICIA (obstructive sleep apnea) - Paroxysmal atrial fibrillation (HCC) 05/24/2017 - PFO (patent foramen ovale) PAST SURGICAL HISTORY Procedure Laterality Date - CATARACT EXTRACTION HX - HYSTERECTOMY - PAST SURGICAL HISTORY OF RTK 2006 with revision - PAST SURGICAL HISTORY OF retrocele/enterocele repair December 2011 - PAST SURGICAL HISTORY OF right knee arthroplasty 2003 - PAST SURGICAL HISTORY OF ALAINA 1979 - PAST SURGICAL HISTORY OF left deltoid tumor removed - PAST SURGICAL HISTORY OF 1971 - PAST SURGICAL HISTORY OF appendectomy - PAST SURGICAL HISTORY OF TANDA 1941 - PAST SURGICAL HISTORY OF cataracts bilateral - PAST SURGICAL HISTORY OF lateral meniscal repair. - TOTAL KNEE REPLACEMENT 06/06/12 Knee replacement, total left SOCIAL HISTORY Social History Substance Use Topics - Smoking status: Former Smoker Quit date: 05/08/1965 - Smokeless tobacco: Never Used - Alcohol use No FAMILY HISTORY Problem Relation Age of Onset - Colon Cancer Mother - Other [OTHER] Father suicide - Ischemic Heart Disease Sister DE 65 - Diabetes Maternal Grandmother - No Family History Maternal Grandfather - No Known Problems Paternal Grandmother - No Family History Paternal Grandfather - Heart Sister CABGX2 - None Sister - None Sister ALLERGIES: ALLERGIES Allergen Reactions - Lovenox [Enoxaparin* Rash - Sulfa (Sulfonamide * Hives MEDICATIONS: carvedilol (COREG) 6.25 mg tablet Take 6.25 mg by mouth twice daily with meals. timolol maleate (TIMOPTIC) 0.5 % ophthalmic solution rivaroxaban (XARELTO) 20 mg tablet Take 1 tablet by mouth daily with dinner. simvastatin (ZOCOR) 20 mg tablet Take 20 mg by mouth every 48 hours. levothyroxine 75 mcg tablet Take 75 mcg by mouth daily before breakfast. Cholecalciferol, Vitamin D3, (VITAMIN D-3) 2,000 unit cap Take by mouth once daily. losartan 100 mg ORAL tablet Take 1 tablet by mouth once daily. latanaprost (XALATAN) 0.005 % OPHTHALMIC ophthalmic solution Use 1 Drop in both eyes daily at bedtime. REVIEW OF SYSTEMS: General, constitutional: Weight loss or gain- No, Fever or chills-No, Weakness-No, Trouble sleeping-No. Head, Eyes, Ears, Mouth: Headache, head injury-No, Glasses or contact lenses-y, Pain-No, Impaired vision-No, Decreased hearing-No, Ringing in ears-No, Nose bleeds-No, Dental difficulties-No, Bleeding gums-No, Dentures-No. Neck: Swelling-No, Pain-No, Stiffness-No. Respiratory: Cough-No, Spitting up blood-No, Shortness of breath-No, Wheezing or asthma-No. Musculoskeletal: Muscle or joint pain or stiffness-No, Joint swelling-No. Gastrointestinal: Difficulty swallowing-No, Heartburn-No, Change in bowel habits-No, Blood in stool, Dark black stools-No. Neurological/Psychiatric: Weakness, paralysis-No, Numbness- No, Tingling-No, Tremor-No, Nervousness or anxiety-No, Depressed mood-No, Memory loss-No. Skin: Rash-No, Itching-No. Hematological: Easy bruising-y, Easy bleeding-y. Endocrine: Heat or cold intolerance-No, Excessive sweating- No, Frequent urination-No, Frequent thirst-No. PHYSICAL EXAMINATION: BP 124/76 Pulse (!) 50 Ht 166.4 cm (5' 5.5) Wt 79.4 kg (175 lb) BMI 28.68 kg/m2 General: In no acute distress. Neck: no jugular venous distention,, no carotid bruits, Lungs: Clear to auscultation bilaterally, no wheezing or rhonchi. Heart: Regular rhythm, S1, S2 normal, no murmur Abdomen: Soft, nontender, bowel sounds normal, no palpable organomegaly, no bruits. Extremities: No peripheral edema Component Latest Ref Rng AND Units 08/10/2017 Glucose 74 - 99 mg/dL 95 BUN 7 - 21 mg/dL 18 Creatinine 0.58 - 0.96 mg/dL 0.85 Sodium 136 - 144 mmol/L 142 Potassium 3.7 - 5.1 mmol/L 4.5 Chloride 97 - 105 mmol/L 104 CO2 22 - 30 mmol/L 27 Anion Gap 9 - 18 mmol/L 11 Calcium 8.5 - 10.2 mg/dL 9.1 eGFR- >60 eGFR-All Other Races . >60 WBC 3.70 - 11.00 k/uL 4.07 RBC 3.90 - 5.20 m/uL 3.71 (L) Hemoglobin 11.5 - 15.5 g/dL 11.6 Hematocrit 36.0 - 46.0 % 35.3 (L) MCV 80.0 - 100.0 fL 95.1 MCH 26.0 - 34.0 pG 31.3 MCHC 30.5 - 36.0 g/dL 32.9 RDW-CV 11.5 - 15.0 % 12.6 Platelet Count 150 - 400 k/uL 202 MPV 9.0 - 12.7 fL 9.9 Absolute nRBC <0.01 k/uL <0.01 CARDIOVASCULAR MEDICINE TESTING: EKG 08/10/2017 reviewed: Sinus Alejandro V-rate 45 bpm VA 146 ms QRS 118 ms QT/QTc 454/392 ms IMPRESSION: Ms. Cheatham is a 82 year old female who presents for pre PVI office visit. PAF: Has had palpitations for year, diagnosed with AF October 2016. She has tried/failed Flecainide. When she was seen by Dr. Rubio in May, they discussed dofetilide loading vs ablation, they decided to pursue PVI. She has at least weekly, if not more, PAF episodes. She had AF this morning, but converted prior to her EKG. She has symptoms of fatigue, chest pressure and palpitations. She underwent CT of chest today as well as lab work. We discussed the procedure, possible risks/complications and recovery. We reviewed expectation after the procedure: If you experience groin pain, oozing, or growing hematoma, you should notify the office. You may still have some atrial fibrillation post procedure 8-10 weeks, it is necessary to maintain sinus rhythm as much as possible during this time, may need cardioversion if atrial fibrillation persist. For one week after the procedure 10 lbs lifting, pushing, pulling restriction. No regular exercise for one week, then start slow back into exercise program. Avoid any known triggers, ETOH and caffeine for 8-10 weeks after the procedure. On discharge you will be given a transmitter and will need to transmit weekly and if having any atrial fibrillation. Any questions or concerns call the office. Call EP lab the day prior to procedure for arrival time. CVA prophylaxis: Continues on Xarelto. Denies any missed doses in the past 3 weeks. She takes Xarelto in AM, advised not to take AM of procedure. PLAN AND RECOMMENDATIONS: 1. PVI 08/17/[address] Loan Brown APRN.HIDES INSPECTOR Addendum 08/10/2017 5:[address] of Chest IMPRESSION: 1. ?Normal pulmonary venous anatomy without pulmonary vein stenosis. 2. ?No left atrial or left atrial appendage thrombus. 3. ?Upper normal caliber of the ascending thoracic aorta (3.8 cm). 4. 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 Previous Version Livier Brown APRN.JOHANNA 08/10/2017 1:24 PM Signed Call the EP lab on Monday at 11am. Nothing to eat or drink after midnight the night of the procedure. No Xarelto the AM of procedure. CNCO Observed: 06/05/2017 Status: COMPLETED Source: [place] 12:00 AM [facility] REPOSITORY Letter Text PULMONARY VEIN ISOLATION ABLATION Procedure Date: August. 1) It is extremely important that you call [facility] at [phone] or and ask for the EP Scheduling Nurse, Pager #[phone] between the hours of 11:00 a.m. - 1:00 p.m. Monday through Monday, the day before the procedure date. The scheduling nurse will give you the report-in time for your procedure, discuss fasting instructions, and medication instructions. - If your procedure is Monday, please call the Monday before. - If your procedure is after a , please call the EP Scheduling Nurse the day before the holiday. Arrival time for your procedure is based on an approximate start time. While we attempt to give you an accurate time,emergency circumstances beyond our control may disrupt the existing schedule. We apologize ahead of time for any inconvenience that this may cause you. 2) It is important for you to call as soon as possible if you should need to cancel or postpone your scheduled procedure. Please call our PVI Scheduling Nurse at [phone] and leave a message when prompted. If you have any further questions regarding your procedure or medications please contact your physician's office Dr. Shaun Rubio [phone] 3) On occasion, we will need to cancel your ablation date due to a variety of circumstances. We will try to give you ample notice if this happens. 4) If you take warfarin (Coumadin, Jantoven), you need to have your INR checked weekly, each of the three weeks prior to your scheduled ablation procedure. You then need to FAX the results of your INR to [phone]. 5) If you are admitted after your procedure, you will go to a hospital floor after your procedure. You should be discharged at approximately 11:00am the day following your procedure. 6)Medication Instructions : Do NOT stop Xarelto. 7) Do not have anything to eat or drink after midnight on the night prior to your procedure. 8) On the day of your procedure, pleaser report to Desk J1- 1[facility]Ad[facility], to review your admission paper work. You will then need to proceed to Desk J2-1 on the second floor of the [facility] for your procedure. 9) If you are traveling from out of town and need overnight accommodations, please contact our lodging coordinator at ext [phone] or ext [phone] or visit our website at [email or web address] 10) If you are female of childbearing age, we will request your permission for a test (blood work) prior to the procedure. 11) If you have any insurance concerns regarding this procedure, please contact our pre-certification office at or [phone] or visit our website at [email or web address] 12) At a later time, we will mail out your pre-op appointments. ALLERGIES ALLERGIES DATE TYPE / CODE NAME / CODE REACTION SEVERITY SOURCE 04/16/2018 Drug Sulfa Hives Unknown [place] Allergy/416 (Sulfonamide Community 734724([facility] Antibiotics)/F001 [address] CT) 530588(RXNORM) Repository 04/16/2018 Drug enoxaparin/F44279 Rash Unknown [place] Allergy/416 4210(RXNORM) Community 765177([facility] Hospital ED CT) Repository 07/03/2012 DRUG ENOXAPARIN SODIUM RASH [facility] INGREDI/[address] [place] [address]60(SNOM Repository ED CT) 11/02/2010 Drug SULFA HIVES [facility] Class/64213 (SULFONAMIDE Main [place] 1003(SNOMED ANTIBIOTICS) Repository CT) ENCOUNTERS ENCOUNTERS ADMIT/DISCHARGE ACCOUNT ADMITTING ENCOUNTER LOCATION SOURCE NUMBER CLASS 05/08/2018 [id number] Ambulatory [place] [facility] ing:MTLAB Repository 05/04/2018/05/04/20 [id number] Ambulatory [place] [facility] ing:MTLAB Repository 04/17/2018/04/17/20 [id number] Ambulatory BMSBuilding:B [place] 18 MS.CF.[facility] Repository 04/17/2018/04/17/20 [id number] Ambulatory [place] 18 [facility] ing:ENRoom: Repository 12 04/06/2018/04/06/20 [id number] Ambulatory [place] 18 [facility] ing:MTLAB Repository 02/27/2018/02/28/20 [id number] Ambulatory BMSBuilding:B [place] 18 MS.WSA [facility] Repository 02/23/2018/02/24/20 [id number] Ambulatory [place] [address] ing:MTLAB Repository 02/19/2018 [id number] [facility] Rep[facility] 01/19/2018/01/20/20 [id number] Ambulatory [place] ing:LAB Repository 01/05/2018/01/06/20 [id number] Ambulatory [place] ing:LAB Repository 11/29/2017/11/30/19 [id number] Ambulatory [address] Repository 11/29/2017/11/30/19 [id number] Ambulatory [address] Repository 11/29/2017/11/30/19 [id number] Ambulatory [address] Repository 11/29/2017/11/30/19 [id number] Ambulatory [address] [place] Repository 11/24/2017 [id number] Ambulatory [facility] ing:CVS Repository 08/18/2017/08/19/19 [id number] Ambulatory [place] 18 [facility] [address] [place] Repository 08/18/2017/08/19/19 [id number] Ambulatory [address] [place] Repository 08/17/2017/08/19/19 [id number] LOAN, Ambulatory [address] [place] Repository 08/17/2017 [id number] Ambulatory [facility] Main [place] Repository 08/10/2017/08/11/19 [id number] Ambulatory [address] [place] Repository 08/10/2017/08/11/19 [id number] Ambulatory [address] [place] Repository 08/10/2017/08/11/19 [id number] Ambulatory [address] [place] Repository 08/10/2017 [id number] Ambulatory [facility] Repository PAYERS PAYERS ENCOUNTER GUARANTOR PAYER SUBSCRIBER SOURCE 05/08/2018 ELIZABETH Conti Primary ELIZABETH Coe [id number] Insurance:MEDICARE EDINGTONDOB: [facility] A BPolicy Number: [id number] [facility] [id number] [address]ository [address], [place] Date:2017-12-29 46472Pye: () 05/08/2018 Secondary ELIZABETH J [place] Insurance:HUMANA EDINGTONDOB: Community COMMERCIALPolicy [id number] Hospital Number: Repository [id number] Date:0721-70-51YY [address] [place] [address]RS: 05/08/2018 Tertiary NOT GIVENUNK [place] Insurance:SELF PAY [facility]: Effective Repository Date:2018-05-07 05/04/2018 ELIZABETH J Primary ELIZABETH J [place] [id number] Insurance:MEDICARE EDINGTONDOB: [facility] PART A BPolicy Number: [id number] [facility] [id number] [facility] [place] Date:2017-12-29 50998Qkn: () 05/04/2018 Secondary ELIZABETH J [place] Insurance:HUMANA EDINGTONDOB: [facility] [id number] Hospital Number: Repository [id number] Date:8420-21-48BJ [address] [place] [id number]: 05/04/2018 Tertiary NOT GIVENUNK [place] Insurance:SELF PAY [facility] Number: Effective Repository Date:2018-04-10 04/17/2018 ELIZABETH J Primary ELIZABETH J [place] [id number] Insurance:MEDICARE EDINGTONDOB: [facility] PART A BPolicy Number: [id number] Hospital of [facility] [place] [id number] [address] [place] Date:2018-02-28 14976Mij: () 04/17/2018 Secondary ELIZABETH J [place] Insurance:HUMANA EDINGTONDOB: [facility] COMMERCIALPolicy [id number] Hospital Number: Repository [id number] Date:0545-87-32IN [address] [place] [address]WB: 04/17/2018 Tertiary NOT GIVENUNK [place] Insurance:SELF PAY [facility] Hospital Number: Effective Repository Date:2018-04-17 04/17/2018 ELIZABETH J Primary ELIZABETH J [place] [id number] Insurance:MEDICARE EDINGTONDOB: Community JUANITA PART A BPolicy Number: [id number] Hospital of [facility] [place] [id number] Repository [address] [place] [address] Date:2018-02-28 45040Qwv: () 04/17/2018 Secondary ELIZABETH J [place] Insurance:HUMANA EDINGTONDOB: [facility] [id number] Hospital Number: Repository [id number] Date:4129-16-30[address] [address]CK: 04/17/2018 Tertiary NOT GIVENUNK [place] Insurance:SELF PAY [facility] Hospital Number: Effective Repository Date:2018-02-28 04/06/2018 ELIZABETH J Primary ELIZABETH J [place] [id number] Insurance:MEDICARE EDINGTONDOB: Community JUANITA PART A BPolicy Number: [id number] Hospital of [facility] [place] [id number] Repository [address] [place] [address] Date:2017-12-29 43266Tpp: () 04/06/2018 Secondary ELIZABETH J [place] Insurance:HUMANA EDINGTONDOB: [facility] [id number] Hospital Number: Repository [id number] Date:1928-22-60[address] [address]SN: 04/06/2018 Tertiary NOT GIVENUNK [place] Insurance:SELF PAY [facility] Hospital Number: Effective Repository Date:2018-03-08 02/27/2018 ELIZABETH J Primary ELIZABETH J [place] [id number] Insurance:MEDICARE EDINGTONDOB: Community JUANITA PART A BPolicy Number: [id number] Hospital of [facility] [place] [id number] Repository [address] [place] [address] Date:2018-02-19 66291Zyy: () 02/27/2018 Secondary ELIZABETH J [place] Insurance:HUMANA EDINGTONDOB: [facility] [id number] Hospital Number: Repository [id number] Date:1172-50-88IU [address] [address]CU: 02/27/2018 Tertiary NOT GIVENUNK [place] Insurance:SELF PAY [facility] Number: Effective Repository Date:2018-02-19 02/23/2018 ELIZABETH J Primary ELIZABETH J [place] [id number] Insurance:MEDICARE EDINGTONDOB: [facility] PART A BPolicy Number: [id number] Hospital of [facility] [place] [id number] [address]ository [address] Date:2017-12-29 42815Jev: () 02/23/2018 Secondary ELIZABETH J [place] Insurance:HUMANA EDINGTONDOB: [facility] [id number] Hospital Number: Repository [id number] Date:2707-84-90TY[address] [address]IT: 02/23/2018 Tertiary NOT GIVENUNK [place] Insurance:SELF PAY [facility] Number: Effective Repository Date:2018-02-07 02/19/2018 ELIZABETH J Primary ELIZABETH J [place] [id number] Insurance:MEDICARE EDINGTONDOB: [facility] PART A BPolicy Number: [id number] Hospital of [facility] [place] [id number] [address]ository [address] Date:2018-02-19 94661Rrm: () 02/19/2018 Secondary ELIZABETH J [place] Insurance:HUMANA EDINGTONDOB: [facility] [id number] Hospital Number: Repository [id number] Date:2636-19-63UA [address] [address]EN: 02/19/2018 Tertiary NOT GIVENUNK [place] Insurance:SELF PAY [facility] Number: Effective Repository Date:2018-02-19 01/19/2018 ELIZABETH J Primary ELIZABETH J [place] [id number] Insurance:MEDICARE EDINGTONDOB: [facility] PART A BPolicy Number: [id number] Hospital of [facility] [place] [id number] Repository [address] [place] [address] Date:2017-12-29 11892Aju: () 01/19/2018 Secondary ELIZABETH J [place] Insurance:HUMANA EDINGTONDOB: [facility] [id number] Hospital Number: Repository [id number] Date:4985-76-05LJ [address] [place] [address]JQ: 01/19/2018 Tertiary NOT GIVENUNK [place] Insurance:SELF PAY [facility] Number: Effective Repository Date:2018-01-09 01/05/2018 ELIZABETH J Primary ELIZABETH J [place] [id number] Insurance:MEDICARE EDINGTONDOB: [facility] PART A BPolicy Number: [id number] Hospital of [facility] [place] [id number] Repository [address] [place] [address] Date:2017-12-29 81549Nlv: () 01/05/2018 Secondary ELIZABETH J [place] Insurance:HUMANA EDINGTONDOB: [facility] [id number] Hospital Number: Repository [id number] Date:4512-24-89HV [address] [place] [address]OP: 01/05/2018 Tertiary NOT GIVENUNK [place] Insurance:SELF PAY [facility] Number: Effective Repository Date:2017-12-29 11/24/2017 ELIZABETH J Primary Insurance:SELF NOT GIVENUNK [place] [id number] PAY [facility] Number: Effective [facility] Date:2017-11-16 Repository [address] [place] [id number]: (HP)
== END 2018-04-17 08:53 | disposition home or self-care (01) ==
LOC: EN 06:12 → AC 06:12
PROVIDERS: Family Provider Family Medicine; PCP Family Medicine; Referring Provider Surgery; Visit Provider Surgery
PROC: 0DJD8ZZ Inspection of Lower Intestinal Tract, Via Natural or Artificial Opening Endoscopic (ICD-10-PCS; CPT 45378; principal; 2018-04-17 07:25)
DX: Z12.11 Encounter for screening for malignant neoplasm of colon (principal); D12.5 Benign neoplasm of sigmoid colon; K64.9 Unspecified hemorrhoids; K57.30 Diverticulosis of large intestine without perforation or abscess without bleeding; Z80.0 Family history of malignant neoplasm of digestive organs; I48.0 Paroxysmal atrial fibrillation; G47.33 Obstructive sleep apnea (adult) (pediatric); I10 Essential (primary) hypertension; E78.00 Pure hypercholesterolemia, unspecified; E06.9 Thyroiditis, unspecified; Z79.01 Long term (current) use of 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s; Z79.899 Other long term (current) drug therapy; Z87.891 Personal history of nicotine dependence
CPT/HCPCS: 45380; 36416; 85610; 88305; J7120

== ENCOUNTER 2018-05-04 07:55 | Outpatient (RCR) | payer MEDICARE, OTHER, SELFPAY ==
[2018-02-27 13:15] VITALS: BMI 27.8
[2018-05-04 10:20] LABS: International Normalized Ratio 2.3; Prothrombin Time (Protime)PT. 25.8 SECONDS (11.7-14.9)
== END 2018-05-04 08:00 | disposition home or self-care (01) ==
LOC: MTLAB 07:55
PROVIDERS: Family Provider Family Medicine; PCP Family Medicine; Referring Provider Internal Medicine Cardiovascular Disease; Visit Provider Internal Medicine Cardiovascular Disease
DX: I48.0 Paroxysmal atrial fibrillation (principal); Z79.01 Long term (current) use of 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s
CPT/HCPCS: 36415; 85610

== ENCOUNTER 2018-06-01 08:32 | Outpatient (RCR) | payer MEDICARE, OTHER, SELFPAY ==
[2018-06-01 10:21] LABS: International Normalized Ratio 2.2; Prothrombin Time (Protime)PT. 24.6 SECONDS (11.7-14.9)
== END 2018-06-01 10:00 | disposition home or self-care (01) ==
LOC: MTLAB 08:32
PROVIDERS: Family Provider Family Medicine; PCP Family Medicine; Referring Provider Internal Medicine Cardiovascular Disease; Visit Provider Internal Medicine Cardiovascular Disease
DX: I48.0 Paroxysmal atrial fibrillation (principal); Z79.01 Long term (current) use of 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s
CPT/HCPCS: 36415; 85610

== ENCOUNTER 2018-06-29 08:01 | Outpatient (RCR) | payer MEDICARE, OTHER, SELFPAY ==
[2018-06-29 10:16] LABS: International Normalized Ratio 1.9; Prothrombin Time (Protime)PT. 21.5 SECONDS (11.7-14.9)
== END 2018-07-05 14:43 | disposition home or self-care (01) ==
LOC: MTLAB 08:01
PROVIDERS: Family Provider Family Medicine; PCP Family Medicine; Referring Provider Internal Medicine Cardiovascular Disease; Visit Provider Internal Medicine Cardiovascular Disease
DX: I48.0 Paroxysmal atrial fibrillation (principal); Z79.01 Long term (current) use of 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s
CPT/HCPCS: 36415; 85610

== ENCOUNTER 2018-07-13 07:51 | Outpatient (RCR) | payer MEDICARE, OTHER, SELFPAY ==
[2018-07-13 10:07] LABS: International Normalized Ratio 2.3; Prothrombin Time (Protime)PT. 25.1 SECONDS (11.7-14.9)
== END 2018-07-13 08:00 | disposition home or self-care (01) ==
LOC: MTLAB 07:51
PROVIDERS: Family Provider Family Medicine; PCP Family Medicine; Referring Provider Internal Medicine Cardiovascular Disease; Visit Provider Internal Medicine Cardiovascular Disease
DX: I48.0 Paroxysmal atrial fibrillation (principal); Z79.01 Long term (current) use of 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s
CPT/HCPCS: 36415; 85610

== ENCOUNTER 2018-08-10 07:54 | Outpatient (RCR) | payer MEDICARE, OTHER, SELFPAY ==
[2018-08-10 10:07] LABS: International Normalized Ratio 1.9; Prothrombin Time (Protime)PT. 21.9 SECONDS (11.7-14.9)
== END 2018-09-04 16:00 | disposition home or self-care (01) ==
LOC: MTLAB 07:54
PROVIDERS: Family Provider Family Medicine; PCP Family Medicine; Referring Provider Internal Medicine Cardiovascular Disease; Visit Provider Internal Medicine Cardiovascular Disease
DX: I48.0 Paroxysmal atrial fibrillation (principal); Z79.01 Long term (current) use of 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s
CPT/HCPCS: 36415; 85610

== ENCOUNTER → 2018-08-23 | Outpatient (CLI) | payer MEDICARE, OTHER, SELFPAY ==
--- NOTE | 2018-08-23 12:30 | BI_ITS ---
MAMMOGRAPHY - BILATERAL SCREENING REASON FOR EXAM: Female, 83 years old. Routine annual screening examination. PERTINENT HISTORY: Non-contributory. TECHNIQUE: Digital bilateral breast sterling (3D mammographic acquisition) in the CC and MLO projections. 2-D mediolateral oblique (MLO) and craniocaudad (CC) views of both breasts were obtained. CAD: Full Field Digital Mammography with Computer Added Detection was performed. COMPARISON: Comparison is made with prior study dated February 10, 2017 and February 10, 2016. FINDINGS: Breast Composition: There are scattered areas of fibroglandular density. There are no dominant masses or suspicious calcifications. No other significant abnormalities are identified. There has been no significant change since the prior study. BI/SCREENING MAMM (CAD), BILAT IMPRESSION: Stable bilateral screening mammogram. Yearly follow-up mammogram recommended. (A) ASSESSMENT CATEGORY: BIRADS Category 1: Negative. A letter regarding these results will be sent to the patient by the facility within 30 days. Approximately 10% of breast cancers are not detected by mammography. A normal mammogram should not delay biopsy of a clinically suspicious abnormality. [id number] Electronically Signed: Scooter Miller, at 15:00 EDT , Service support ,
== END | disposition home or self-care (01) ==
LOC: OPBI 12:28
PROVIDERS: Family Provider Family Medicine; PCP Family Medicine; Referring Provider Family Medicine; Visit Provider Family Medicine
DX: Z12.31 Encounter for screening mammogram for malignant neoplasm of breast (principal)
CPT/HCPCS: 77063; 77067

== ENCOUNTER → 2019-02-18 | Outpatient (CLI) | payer MEDICARE, OTHER, SELFPAY ==
[2019-02-15 14:29] VITALS: BMI 29.1
[2019-02-18 10:51] LABS: AST(SGOT) 23 U/L (15-37); Alanine Aminotransfer ALT/SGPT 24 U/L (13-56); Albumin, Serum 3.7 g/dL (3.2-5.0); Alkaline Phosphatase 82 U/L (45-117); Cholesterol 149 mg/dL (200); Globulin 3.2 g/dL (2.2-4.2); High Density Lipoprotein 52 mg/dL; Protein, Total 6.9 g/dL (6.4-8.2); Triglycerides 118 mg/dL; Very Low Density Lipoprotein 24 mg/dL (5-40)
== END | disposition home or self-care (01) ==
LOC: MTLAB 08:16
PROVIDERS: Family Provider Family Medicine; PCP Family Medicine; Referring Provider Internal Medicine Cardiovascular Disease; Visit Provider Internal Medicine Cardiovascular Disease
DX: E78.00 Pure hypercholesterolemia, unspecified (principal)
CPT/HCPCS: 36415; 80061; 80076

== ENCOUNTER → 2019-03-07 | Outpatient (CLI) | payer MEDICARE, OTHER, SELFPAY ==
[2019-02-15 14:29] VITALS: BMI 29.1
--- NOTE | 2019-03-07 13:36 | ECHOD_ITS ---
Reason For Study: AFIB/FLUTTER Procedure This was a 2D Doppler, Color Flow transthoracic echocardiogram. Exam performed in department. Left Ventricle Normal size and thickness. The estimated ejection fraction is 65 %. Septal motion consistent with IVCD. Stage 1 diastolic dysfunction. No regional wall motion abnormalities noted. Right Ventricle Normal size and thickness. Normal systolic function. Atria Normal left atrium. Normal right atrium. Normal atrial septum. Mitral Valve The mitral valve is structurally normal. No prolapse or stenosis seen. Tricuspid Valve Normal tricuspid valve. Mild (1+) tricuspid valve insufficiency. Right ventricular systolic pressure estimated to be 38 mmHg. Aortic Valve Normal aortic valve. Trisinus/trileaflet aortic valve. Pulmonic Valve Normal pulmonic valve. Great Vessels Normal aortic root. Normal arch. Normal inferior vena cava. Inferior vena cava collapse with sniff. Pericardium/Pleural No pericardial effusion. MMode/2D Measurements & Calculations LVIDd: 4.1 cm IVSd: 1.1 cm Ao root diam: 3.3 cm LVIDs: 2.5 cm LVPWd: 1.1 cm RVDd: 3.3 cm FS: 38.5 % LAV(MOD-bp): 53.8 ml LA A4 area: 15.5 cm2 LA dimension(2D): 3.6 cm LAV(MOD-bp) Indexed: 29.2 ml/m2 LAV(MOD-sp2): 62.2 ml LAV(MOD-sp4): 40.9 ml RA A4 area: 14.1 cm2 Doppler Measurements & Calculations Lat Peak E' Doni: 9.9 cm/sec Med Peak E' Doni: 5.9 cm/sec Ao V2 max: 151.4 cm/sec Ao max P.2 mmHg LV V1 max: 119.1 cm/sec PA V2 max: 119.1 cm/sec TR max doni: 284.4 cm/sec LV V1 max P.7 mmHg TR max P.4 mmHg Interpretation Summary The estimated ejection fraction is 65 %. Stage 1 diastolic dysfunction. Mild (1+) tricuspid valve insufficiency. Right ventricular systolic pressure estimated to be 38 mmHg. Compared to echo report dated 06/11/2014, no appreciable changes noted. Ordering Physician: Subhash Maher Referring Physician: Luis M Lama Performed By: Heather Ritter RDCS, RVT
== END | disposition home or self-care (01) ==
LOC: CVS 13:35
PROVIDERS: Family Provider Family Medicine; PCP Family Medicine; Referring Provider Internal Medicine Cardiovascular Disease; Visit Provider Internal Medicine Cardiovascular Disease
DX: I48.0 Paroxysmal atrial fibrillation (principal); I48.92 Unspecified atrial flutter; G47.33 Obstructive sleep apnea (adult) (pediatric); I10 Essential (primary) hypertension; Z98.890 Other specified postprocedural states
CPT/HCPCS: 93306

== ENCOUNTER → 2019-03-11 | Outpatient (CLI) | payer MEDICARE, OTHER, SELFPAY ==
[2019-02-15 14:29] VITALS: BMI 29.1
[2019-03-11 17:32] LABS: Absolute Lymphocyte Count 0.91 X10^3/uL (0.83-4.51); Absolute Neutrophil Count 1.5 X10^3/uL (2.0-7.7); Basophil# 0.01 X10^3/uL; Basophil% 0.4 % (0-1); Eosinophil# 0.02 X10^3/uL; Eosinophils% 0.7 % (0-5); Hemoglobin 11.8 g/dL (12.0-15.0); Lymphocyte # 0.91 X10^3/ul (4.0); Lymphocyte % 32.4 % (19-41); Mean Corp Hgb Conc 32.8 g/dL (32-36); Mean Corpuscular Volume 97.6 fL (81-99); Monocyte# 0.33 X10^3/uL; Monocyte% 11.7 % (0-10); NRBC Flagged by Analyzer 0 % (0-5); Neutrophil # 1.54 X10^3/uL (2.7-7.7); Neutrophil % 54.8 % (47-70); Platelet Count 214 K/mm3 (150-450); RBC Distribution Width CV 12.8 % (11.6-14.6); RBC Distribution Width SD 45.3 fl (35.1-43.9); Red Blood Count 3.69 M/mm3 (4.2-5.4); White Blood Count 2.8 K/mm3 (4.4-11.0)
[2019-03-11 17:42] LABS: Vitamin B12 1957 pg/mL (211-911)
[2019-03-11 17:42] LABS: Anion Gap 7 (5-15); BUN 20 mg/dL (7-18); BUN/Creat Ratio 21.9 RATIO (10-20); Calcium,Total 8.7 mg/dL (8.5-10.1); Chloride 103 mmol/L (98-107); Creatinine, Serum 0.91 mg/dL (0.55-1.02); EST Glomerular Filtration Rate 63 mL/min (>60); Est Glom Filt Rate - Afr Amer 76 mL/min (>60); Glucose 100 mg/dL (74-106); Potassium 4.2 mmol/L (3.5-5.1); Sodium Level 138 mmol/L (136-145); T4 Free Direct 1.47 ng/dL (0.76-1.46); Thyroid Stim Hormone (TSH) 2.29 uIU/mL (0.358-3.74)
== END | disposition home or self-care (01) ==
LOC: BFHLAB 15:52
PROVIDERS: Family Provider Family Medicine; PCP Family Medicine; Visit Provider Family Medicine
DX: E03.9 Hypothyroidism, unspecified (principal); E55.9 Vitamin D deficiency, unspecified; R79.89 Other specified abnormal findings of blood chemistry; Z51.81 Encounter for therapeutic drug level monitoring
CPT/HCPCS: 36415; 80048; 82306; 82607; 84439; 84443; 85025

== ENCOUNTER → 2019-05-09 12:22 | Outpatient (CLI) | payer MEDICARE, OTHER, SELFPAY ==
[2019-02-15 14:29] VITALS: BMI 29.1
--- NOTE | 2019-05-09 12:28 | RAD_ITS ---
STUDY: X-RAY CHEST REASON FOR EXAM: Female, 83 years old. cough TECHNIQUE: PA and lateral views of the chest. COMPARISON: September 08, 2016 FINDINGS: The lungs are clear and expanded. There is no demonstrated pleural abnormality. Normal size heart. Normal mediastinum and mickey. Normal visualized pulmonary arteries. There is atherosclerotic calcification of the aortic arch with tortuosity. There are diffuse degenerative changes of the visualized thoracic spine. Normal visualized ribs, clavicles, and shoulders. RAD/Chest PA and Lateral IMPRESSION: No acute process Electronically Signed: Haris Rondon MD at 18:49 EST , Service support ,
[2019-05-09 14:17] LABS: Absolute Lymphocyte Count 0.92 X10^3/uL (0.83-4.51); Absolute Neutrophil Count 2.7 X10^3/uL (2.0-7.7); Basophil# 0.01 X10^3/uL; Basophil% 0.3 % (0-1); Eosinophil# 0.01 X10^3/uL; Eosinophils% 0.3 % (0-5); Hematocrit 36.8 % (37-47); Hemoglobin 11.9 g/dL (12.0-15.0); Lymphocyte # 0.92 X10^3/ul (4.0); Lymphocyte % 23.5 % (19-41); Mean Corp Hgb Conc 32.3 g/dL (32-36); Mean Corpuscular Hgb 31.3 pg (27.0-32.0); Mean Corpuscular Volume 96.8 fL (81-99); Monocyte# 0.31 X10^3/uL; Monocyte% 7.9 % (0-10); NRBC Flagged by Analyzer 0 % (0-5); Neutrophil # 2.65 X10^3/uL (2.7-7.7); Neutrophil % 67.7 % (47-70); Platelet Count 207 K/mm3 (150-450); RBC Distribution Width CV 12.7 % (11.6-14.6); RBC Distribution Width SD 45.5 fl (35.1-43.9); White Blood Count 3.9 K/mm3 (4.4-11.0)
== END ==
LOC: LAB.FUTURE 12:27 → MTLAB 12:51
PROVIDERS: Family Provider Family Medicine; PCP Family Medicine; Referring Provider Otolaryngology; Visit Provider Otolaryngology
DX: D72.819 Decreased white blood cell count, unspecified (principal); R05 Cough
CPT/HCPCS: 36415; 71046; 85025

== ENCOUNTER → 2019-10-23 | Outpatient (CLI) | payer MEDICARE, OTHER, SELFPAY ==
[2019-10-18 09:12] VITALS: BMI 29.3
[2019-10-23 10:36] LABS: AST(SGOT) 16 U/L (15-37); Alanine Aminotransfer ALT/SGPT 21 U/L (13-56); Albumin, Serum 3.6 g/dL (3.2-5.0); Alkaline Phosphatase 82 U/L (45-117); Bilirubin, Direct 0.08 mg/dL (0.00-0.30); Cholesterol 178 mg/dL (200); Globulin 3.2 g/dL (2.2-4.2); High Density Lipoprotein 51 mg/dL; Protein, Total 6.8 g/dL (6.4-8.2); Triglycerides 100 mg/dL; Very Low Density Lipoprotein 20 mg/dL (5-40)
== END | disposition home or self-care (01) ==
LOC: MTLAB 07:06
PROVIDERS: PCP Family Medicine; Referring Provider Internal Medicine Cardiovascular Disease; Visit Provider Internal Medicine Cardiovascular Disease
DX: E78.00 Pure hypercholesterolemia, unspecified (principal)
CPT/HCPCS: 36415; 80061; 80076

== ENCOUNTER → 2019-12-10 | Outpatient (CLI) | payer MEDICARE, OTHER, SELFPAY ==
[2019-10-18 09:12] VITALS: BMI 29.3
[2019-12-10 17:01] LABS: Absolute Lymphocyte Count 2.07 X10^3/uL (0.83-4.51); Absolute Neutrophil Count 2.1 X10^3/uL (2.0-7.7); Basophil# 0.02 X10^3/uL; Basophil% 0.4 % (0-1); Eosinophil# 0.05 X10^3/uL; Eosinophils% 1.1 % (0-5); Hematocrit 36.3 % (37-47); Hemoglobin 12.3 g/dL (12.0-15.0); Lymphocyte # 2.07 X10^3/ul (4.0); Lymphocyte % 44.2 % (19-41); Mean Corp Hgb Conc 33.9 g/dL (32-36); Mean Corpuscular Hgb 33.2 pg (27.0-32.0); Mean Corpuscular Volume 98.1 fL (81-99); Mean Platelet Vol. 10.1 fl (6.2-12.0); Monocyte# 0.44 X10^3/uL; Monocyte% 9.4 % (0-10); NRBC Flagged by Analyzer 0 % (0-5); Neutrophil # 2.09 X10^3/uL (2.7-7.7); Neutrophil % 44.7 % (47-70); Platelet Count 238 K/mm3 (150-450); RBC Distribution Width CV 12.8 % (11.6-14.6); RBC Distribution Width SD 45.6 fl (35.1-43.9); White Blood Count 4.7 K/mm3 (4.4-11.0)
== END | disposition home or self-care (01) ==
LOC: BFHLAB 15:50
PROVIDERS: PCP Family Medicine; Visit Provider Family Medicine
DX: D64.9 Anemia, unspecified (principal)
CPT/HCPCS: 36415; 85025

== ENCOUNTER → 2020-03-13 10:33 | Outpatient (CLI) | payer MEDICARE, OTHER, SELFPAY ==
[2019-10-18 09:12] VITALS: BMI 29.3
[2020-02-27 09:58] VITALS: BMI 30.6
[2020-03-13 12:45] LABS: T4 Free Direct 1.38 ng/dL (0.76-1.46); Thyroid Stim Hormone (TSH) 2.21 uIU/mL (0.358-3.74)
== END ==
PROVIDERS: PCP Family Medicine; Visit Provider Family Medicine
DX: I10 Essential (primary) hypertension (principal); E78.5 Hyperlipidemia, unspecified; E03.9 Hypothyroidism, unspecified; E55.9 Vitamin D deficiency, unspecified; Z51.81 Encounter for therapeutic drug level monitoring
CPT/HCPCS: 36415; 84439; 84443

== ENCOUNTER 2020-05-28 09:28 | Outpatient (RCR) | payer MEDICARE, OTHER, SELFPAY ==
[2020-02-27 09:58] VITALS: BMI 30.6
== END 2020-05-28 23:59 ==
LOC: IMMUN 09:28
PROVIDERS: PCP Family Medicine; Visit Provider Family Medicine
DX: Z23 Encounter for immunization (principal)
CPT/HCPCS: 0011A; 0012A; 91301

== ENCOUNTER → 2020-06-18 08:09 | Outpatient (CLI) | payer MEDICARE, OTHER, SELFPAY ==
[2020-02-27 09:58] VITALS: BMI 30.6
[2020-06-18 12:48] LABS: AST(SGOT) 15 U/L (15-37); Alanine Aminotransfer ALT/SGPT 21 U/L (13-56); Albumin, Serum 3.6 g/dL (3.2-5.0); Alkaline Phosphatase 90 U/L (45-117); Bilirubin, Direct 0.07 mg/dL (0.00-0.30); Cholesterol 169 mg/dL (200); Globulin 3.1 g/dL (2.2-4.2); High Density Lipoprotein 54 mg/dL; Protein, Total 6.7 g/dL (6.4-8.2); Triglycerides 86 mg/dL; Very Low Density Lipoprotein 17 mg/dL (5-40)
[2020-06-18 12:49] LABS: Absolute Lymphocyte Count 1.37 X10^3/uL (0.83-4.51); Absolute Neutrophil Count 2.1 X10^3/uL (2.0-7.7); Basophil# 0.02 X10^3/uL; Basophil% 0.5 % (0-1); Eosinophil# 0.05 X10^3/uL; Eosinophils% 1.3 % (0-5); Hematocrit 35.1 % (37-47); Hemoglobin 11.3 g/dL (12.0-15.0); Lymphocyte # 1.37 X10^3/ul (4.0); Lymphocyte % 35.4 % (19-41); Mean Corp Hgb Conc 32.2 g/dL (32-36); Mean Corpuscular Hgb 31.3 pg (27.0-32.0); Mean Corpuscular Volume 97.2 fL (81-99); Mean Platelet Vol. 10.5 fl (6.2-12.0); Monocyte# 0.34 X10^3/uL; Monocyte% 8.8 % (0-10); NRBC Flagged by Analyzer 0 % (0-5); Neutrophil # 2.08 X10^3/uL (2.7-7.7); Neutrophil % 53.7 % (47-70); Platelet Count 232 K/mm3 (150-450); RBC Distribution Width CV 12.6 % (11.6-14.6); RBC Distribution Width SD 45.1 fl (35.1-43.9); Red Blood Count 3.61 M/mm3 (4.2-5.4); White Blood Count 3.9 K/mm3 (4.4-11.0)
== END ==
PROVIDERS: Internal Medicine Cardiovascular Disease; PCP Family Medicine; Visit Provider Internal Medicine Cardiovascular Disease
DX: E78.00 Pure hypercholesterolemia, unspecified (principal); D64.9 Anemia, unspecified
CPT/HCPCS: 36415; 80061; 80076; 85025

== ENCOUNTER 2021-01-26 05:43 | Emergency (ER) | payer MEDICARE, OTHER, SELFPAY ==
[2021-01-26 05:45] VITALS: BP 134/64; PULSE 63; RESP 16; TEMP 36.9; O2SAT 96; BMI 32.1
--- NOTE | 2021-01-26 06:17 | EX.ED.DYSGE1 ---
HPI History of Present Illness Chief Complaint: Fever Informant: patient Narrative Narrative: Patient states for the last day and a half she has had some myalgias, slight headache, decreased energy and decreased appetite. No nausea vomiting. She has no shortness of breath. She has a slight cough but says she has allergies so that is not uncommon. She states she does not really feel that ill but she is concerned if she might have a Covid variant. She did have her immunizations in May and June. Her is having similar symptoms. However, his symptoms actually started 2 months ago were getting better and now getting worse again. Her saturations have been 94 to 95% at home. She states her only real concern is if she has Covid or not. She overall is doing well. [facility] Medical History Chest pain, unspecified Essential hypertension Excessive sleepiness Family history of colon cancer in mother Family history of premature coronary heart disease GERD (gastroesophageal reflux disease) emt intermediate current use of 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 Long-term use of high-risk medication Nonsustained ventricular tachycardia Obstructive sleep apnea LETICIA (obstructive sleep apnea) Palpitations Paroxysmal A-fib Patent foramen ovale Peripheral neuropathy Pure hypercholesterolemia Snoring Supraventricular tachycardia Home Medications latanoprost 1 drp QHS 09/12/16 [History Last Taken Unknown] losartan 100 mg PO DAILY 09/12/16 [History Last Taken 04/17/18 05:00] timolol maleate 1 drp EACH EYE BID 09/12/16 [History Last Taken Unknown] levomefolate Ca 3 mg-B6 35 mg-meB12 2 mg-algal oil 90.314 mg capsule 1 cap PO .daily ea 04/19/17 [History Last Taken Unknown] montelukast 10 mg tablet 10 mg PO DAILY 06/13/19 [History Last Taken Unknown] loratadine 10 mg tablet 10 mg PO DAILY 10/18/19 [History Last Taken Unknown] fluticasone propionate 50 mcg/actuation nasal spray,suspension 1 spray INTRANASAL DAILY 02/27/20 [History Last Taken Unknown] levothyroxine 75 mcg tablet 75 mcg PO DAILY 02/27/20 [History Last Taken Unknown] simvastatin 20 mg tablet 20 mg PO .qod #45 tab 04/14/20 [Rx Last Taken Unknown] cholecalciferol (vitamin D3) 125 mcg (5,000 unit) tablet 125 mcg PO DAILY 06/24/20 [History Last Taken Unknown] carvedilol 6.25 mg tablet 6.25 mg PO BID #180 tab 12/02/20 [Rx Last Taken Unknown] Allergy/AdvReac Type Severity Reaction Status Date / Time enoxaparin [From Lovenox] Allergy Rash Verified 01/26/21 05:51 Sulfa (Sulfonamide Allergy Hives Verified 01/26/21 05:51 Antibiotics) Family History Mother Cancer Colon Diabetes Sister CAD (coronary artery disease) Heart disease Diabetes Surgical History H/O section H/O: hysterectomy History of radiofrequency ablation procedure for cardiac arrhythmia (~08/17/17) History of total right knee replacement S/P appendectomy S/P arthroscopic surgery of left knee S/P excision of lipoma S/P lateral meniscal repair Tooth disorder Social History Smoking Status: Former smoker second hand exposure: No alcohol intake: never substance use type: does not use caffeine: No what type of physical activity do you participate in: other details: stationary bike frequency: daily seatbelt use: always do you feel safe at home: Yes ROS ROS ED Constitutional Constitutional ED: Reports fever(s), subjective and other Details: Patient states she has had a low-grade fever in the upper 98 range. ENT ENT ED: Reports rhinorrhea; Denies sore throat Cardiovascular Cardiovascular: Denies chest pain, orthopnea, palpitations or paroxysmal nocturnal dyspnea Respiratory/Chest Respiratory/Chest: Reports cough and other Details: See history of present illness. ; Denies dyspnea, dyspnea on exertion, orthopnea or paroxysmal nocturnal dyspnea Gastrointestinal Gastrointestinal: Reports other Details: Mild decreased appetite. ; Denies abdominal pain, diarrhea, nausea or vomiting Genitourinary Genitourinary ED: Denies dysuria, hematuria or urinary frequency Musculoskeletal Musculoskeletal: Reports myalgias Integumentary Denies rash Neurologic Neurologic: Reports headache(s); Denies paresthesias or weakness Endocrine Endocrinology: Denies polydipsia or polyuria Allergic/Immunologic Allergic/Immunologic ED: Denies urticaria EXAM Physical Exam Const Vital Signs: 01/26/21 05:45 01/26/21 05:48 Temperature 98.5 F Temperature Source Oral Pulse Rate 63 Respiratory Rate 16 Respiratory Effort Normal Respiratory Pattern Normal Blood Pressure 134/64 H Blood Pressure Mean 87 Pulse Ox 96 Oxygen Delivery Method Room Air Positive well nourished and well developed General Appearance ED: well developed and NAD HEENT Reports moist mucous membranes Eyes General Eye ED: Negative for pale conjunctiva or scleral icterus Neck no JVD Chest Wall inspection of chest normal Resp normal respiratory effort and clear to auscultation bilaterally Effort and Inspection: Negative for pain with movement Auscultation: Negative for rales, rhonchi or wheezes Cardio regular rate and regular rhythm GI normal to inspection, nondistended, normoactive bowel sounds and non-tender Palpation: soft Back/Spine no CVA tenderness Extremity normal to inspection General Extremety ED: Negative for edema or tenderness General Extremity: Negative for edema Neuro Sensorium / Orientation: alert Psych mental status grossly normal Skin no rashes or lesions noted MDM MDM MDM Narrative Medical decision making narrative: Patient's code positive. However she is feeling okay. I do not think she needs an extensive work-up now. We discussed reasons to return as well as self quarantine. Discharge Plan Triage Chief Complaint: Fever ED Provider: Denilson Elliott Dx/Rx/DC Orders Clinical Impression: COVID Instructions: Caring for Someone Who Has COVID-19 Prescriptions: No Action [id number] oil [Metanx (algal oil)] 3 mg-35 mg-2 mg -90.314 mg capsule 1 cap PO .daily RF: 0 montelukast [Singulair] 10 mg tablet 10 mg PO DAILY RF: 0 loratadine [Claritin] 10 mg tablet 10 mg PO DAILY RF: 0 fluticasone propionate [Allergy Relief (fluticasone)] 50 mcg/actuation spray,suspension 1 spray INTRANASAL DAILY RF: 0 cholecalciferol (vitamin D3) 125 mcg (5,000 unit) tablet 125 mcg PO DAILY RF: 0 latanoprost 1 DROP bottle 1 drp QHS RF: 0 timolol maleate 1 DROP drops 1 drp EACH EYE BID RF: 0 losartan 100 MG tablet 100 mg PO DAILY RF: 0 levothyroxine 75 mcg tablet 75 mcg PO DAILY RF: 0 simvastatin 20 mg tablet 20 mg PO .qod Qty: 45 RF: 3 carvedilol 6.25 mg tablet 6.25 mg PO BID Qty: 180 RF: 3 Primary Care Provider: Luis M Lama Referrals: Luis M Lama DO [Primary Care Provider] - 10-14 Days if not better Disposition Disposition: Home, Self Care
[2021-01-26 07:52] VITALS: BP 131/78; PULSE 84; RESP 17; O2SAT 97
== END 2021-01-26 07:57 | disposition home or self-care (01) ==
PROVIDERS: Emergency Provider Emergency Medicine; PCP Family Medicine
DX: U07.1 COVID-19 (principal); E78.00 Pure hypercholesterolemia, unspecified; I10 Essential (primary) hypertension; I48.0 Paroxysmal atrial fibrillation; Z79.899 Other long term (current) drug therapy; Z87.891 Personal history of nicotine dependence
CPT/HCPCS: 87426; 99282

== ENCOUNTER → 2021-04-20 08:34 | Outpatient (CLI) | payer MEDICARE, OTHER, SELFPAY ==
[2021-04-20 15:15] LABS: Absolute Neutrophil Count 2.2 X10^3/uL (2.0-7.7); Basophil# 0.02 X10^3/uL; Basophil% 0.5 % (0-1); Eosinophil# 0.04 X10^3/uL; Hematocrit 33.8 % (37-47); Hemoglobin 10.8 g/dL (12.0-15.0); Lymphocyte % 34.7 % (19-41); Mean Corpuscular Hgb 31.2 pg (27.0-32.0); Mean Corpuscular Volume 97.7 fL (81-99); Mean Platelet Vol. 10.3 fl (6.2-12.0); Monocyte# 0.41 X10^3/uL; Monocyte% 10.1 % (0-10); NRBC Flagged by Analyzer 0 % (0-5); Neutrophil # 2.17 X10^3/uL (2.7-7.7); Neutrophil % 53.7 % (47-70); Platelet Count 213 K/mm3 (150-450); Red Blood Count 3.46 M/mm3 (4.2-5.4)
[2021-04-20 15:59] LABS: ALB/GLOB Ratio 1.1 RATIO (0.9-2.4); AST(SGOT) 20 U/L (15-37); Alanine Aminotransfer ALT/SGPT 23 U/L (13-56); Albumin, Serum 3.7 g/dL (3.2-5.0); Alkaline Phosphatase 91 U/L (45-117); Anion Gap 6 (5-15); BUN 24 mg/dL (7-18); BUN/Creat Ratio 28.6 RATIO (10-20); Calcium,Total 8.9 mg/dL (8.5-10.1); Chloride 103 mmol/L (98-107); Creatinine, Serum 0.84 mg/dL (0.55-1.02); EST Glomerular Filtration Rate 69 mL/min (>60); Est Glom Filt Rate - Afr Amer 83 mL/min (>60); Globulin 3.4 g/dL (2.2-4.2); Glucose 88 mg/dL (74-106); Potassium 4.7 mmol/L (3.5-5.1); Protein, Total 7.1 g/dL (6.4-8.2); Sodium Level 137 mmol/L (136-145); T4 Free Direct 1.54 ng/dL (0.76-1.46); Thyroid Stim Hormone (TSH) 2.34 uIU/mL (0.358-3.74)
== END ==
PROVIDERS: PCP Family Medicine; Referring Provider Family Medicine; Visit Provider Family Medicine
DX: D64.9 Anemia, unspecified (principal); E03.9 Hypothyroidism, unspecified; Z92.29 Personal history of other drug therapy
CPT/HCPCS: 36415; 80053; 84439; 84443; 85025

== ENCOUNTER → 2021-10-22 | Outpatient (CLI) | payer MEDICARE, OTHER, SELFPAY ==
[2021-10-22 10:23] LABS: AST(SGOT) 18 U/L (15-37); Alanine Aminotransfer ALT/SGPT 18 U/L (13-56); Albumin, Serum 3.7 g/dL (3.2-5.0); Alkaline Phosphatase 79 U/L (45-117); Bilirubin, Direct 0.11 mg/dL (0.00-0.30); Cholesterol 158 mg/dL (200); Globulin 2.9 g/dL (2.2-4.2); High Density Lipoprotein 51 mg/dL; Protein, Total 6.6 g/dL (6.4-8.2); Triglycerides 79 mg/dL; Very Low Density Lipoprotein 16 mg/dL (5-40)
== END | disposition home or self-care (01) ==
LOC: MTLAB 08:49
PROVIDERS: PCP Family Medicine; Referring Provider Internal Medicine Cardiovascular Disease; Visit Provider Internal Medicine Cardiovascular Disease
DX: E78.00 Pure hypercholesterolemia, unspecified (principal)
CPT/HCPCS: 36415; 80061; 80076

== ENCOUNTER → 2022-03-17 | Outpatient (CLI) | payer MEDICARE, OTHER, SELFPAY ==
[2022-03-17 18:15] LABS: Absolute Lymphocyte Count 1.81 X10^3/uL (0.83-4.51); Absolute Neutrophil Count 2.2 X10^3/uL (2.0-7.7); Basophil# 0.03 X10^3/uL; Basophil% 0.7 % (0-1); Eosinophil# 0.04 X10^3/uL; Eosinophils% 0.9 % (0-5); Hematocrit 34.6 % (37-47); Hemoglobin 11.5 g/dL (12.0-15.0); Lymphocyte # 1.81 X10^3/ul (0.83-4.51); Lymphocyte % 40.3 % (19-41); Mean Corp Hgb Conc 33.2 g/dL (32-36); Mean Corpuscular Hgb 32.7 pg (27.0-32.0); Mean Corpuscular Volume 98.3 fL (81-99); Mean Platelet Vol. 10.3 fl (6.2-12.0); Monocyte# 0.36 X10^3/uL; NRBC Flagged by Analyzer 0 % (0-5); Neutrophil # 2.24 X10^3/uL (2.7-7.7); Neutrophil % 49.9 % (47-70); Platelet Count 227 K/mm3 (150-450); RBC Distribution Width CV 12.9 % (11.6-14.6); RBC Distribution Width SD 46.8 fl (35.1-43.9); Red Blood Count 3.52 M/mm3 (4.2-5.4); White Blood Count 4.5 K/mm3 (4.4-11.0)
[2022-03-17 18:54] LABS: Anion Gap 7 (5-15); BUN 23 mg/dL (7-18); BUN/Creat Ratio 25.6 RATIO (10-20); Calcium,Total 9.3 mg/dL (8.5-10.1); Chloride 103 mmol/L (98-107); EST Glomerular Filtration Rate 63 mL/min (>60); Est Glom Filt Rate - Afr Amer 77 mL/min (>60); Glucose 146 mg/dL (74-106); Potassium 4.3 mmol/L (3.5-5.1); Sodium Level 139 mmol/L (136-145); T4 Free Direct 1.27 ng/dL (0.76-1.46); Thyroid Stim Hormone (TSH) 2.16 uIU/mL (0.358-3.74)
== END | disposition home or self-care (01) ==
LOC: BFHLAB 14:22
PROVIDERS: PCP Family Medicine; Visit Provider Family Medicine
DX: I10 Essential (primary) hypertension (principal); E03.9 Hypothyroidism, unspecified; D64.9 Anemia, unspecified
CPT/HCPCS: 36415; 80048; 84439; 84443; 85025

== ENCOUNTER → 2022-04-05 | Outpatient (CLI) | payer MEDICARE, OTHER, SELFPAY ==
--- NOTE | 2022-04-05 11:51 | BI_ITS ---
MAMMOGRAPHY - BILATERAL SCREENING REASON FOR EXAM: Female, 86 years old. Routine annual screening examination. PERTINENT HISTORY: Non-contributory. TECHNIQUE: Digital bilateral breast lulu (3D mammographic acquisition) in the CC and MLO projections. 2-D mediolateral oblique (MLO) and craniocaudad (CC) views of both breasts were obtained. CAD: Full Field Digital Mammography with Computer Added Detection was performed. COMPARISON: Comparison is made with prior study dated 08/23/2018 and 02/10/2017. FINDINGS: Breast Composition: There are scattered areas of fibroglandular density. There are no dominant masses or suspicious calcifications. No other significant abnormalities are identified. There has been no significant change since the prior study. BI/SCRN MAMM (CAD)W/LULU BILAT IMPRESSION: Stable bilateral screening mammogram. Yearly follow-up mammogram recommended. (A) ASSESSMENT CATEGORY: BIRADS Category 1: Negative. A letter regarding these results will be sent to the patient by the facility within 30 days. Approximately 10% of breast cancers are not detected by mammography. A normal mammogram should not delay biopsy of a clinically suspicious abnormality. [id number] Electronically Signed: Scooter Miller MD at 13:00 EST ,
== END | disposition home or self-care (01) ==
LOC: OPBI 11:49
PROVIDERS: PCP Family Medicine; Referring Provider Family Medicine; Visit Provider Family Medicine
DX: Z12.31 Encounter for screening mammogram for malignant neoplasm of breast (principal); Z86.010 Personal history of colon polyps; Z80.0 Family history of malignant neoplasm of digestive organs
CPT/HCPCS: 77063; 77067; 82274

== ENCOUNTER → 2022-04-11 | Outpatient (CLI) | payer MEDICARE, OTHER, SELFPAY ==
[2022-04-11 10:16] LABS: AST(SGOT) 18 U/L (15-37); Alanine Aminotransfer ALT/SGPT 23 U/L (13-56); Albumin, Serum 3.8 g/dL (3.2-5.0); Alkaline Phosphatase 85 U/L (45-117); Bilirubin, Direct 0.13 mg/dL (0.00-0.30); Cholesterol 167 mg/dL (200); Globulin 2.8 g/dL (2.2-4.2); High Density Lipoprotein 60 mg/dL; Protein, Total 6.6 g/dL (6.4-8.2); Triglycerides 124 mg/dL; Very Low Density Lipoprotein 25 mg/dL (5-40)
== END | disposition home or self-care (01) ==
LOC: MTLAB 08:26
PROVIDERS: PCP Family Medicine; Referring Provider Internal Medicine Cardiovascular Disease; Visit Provider Internal Medicine Cardiovascular Disease
DX: E78.00 Pure hypercholesterolemia, unspecified (principal)
CPT/HCPCS: 36415; 80061; 80076

== ENCOUNTER → 2022-07-18 | Outpatient (CLI) | payer MEDICARE, OTHER, SELFPAY ==
[2022-07-18 10:10] LABS: INR Fingerstick 2.2; Prothrombin Time Fingerstick 26.1 SEC (11.7-14.9)
== END | disposition home or self-care (01) ==
LOC: LAB 09:27
PROVIDERS: PCP Family Medicine; Visit Provider Internal Medicine Cardiovascular Disease
DX: I48.0 Paroxysmal atrial fibrillation (principal); Z79.01 Long term (current) use of 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s
CPT/HCPCS: 36416; 85610

== ENCOUNTER → 2022-07-21 | Outpatient (CLI) | payer MEDICARE, OTHER, SELFPAY | END | disposition home or self-care (01) | LOC: PSN 09:49 | PROVIDERS: PCP Family Medicine; Visit Provider Internal Medicine Cardiovascular Disease | DX: I48.0 Paroxysmal atrial fibrillation (principal); Z79.01 Long term (current) use of 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s | CPT/HCPCS: 93225; 93226 ==

== ENCOUNTER → 2022-07-25 | Outpatient (CLI) | payer MEDICARE, OTHER, SELFPAY ==
[2022-07-25 10:36] LABS: INR Fingerstick 3.4; Prothrombin Time Fingerstick 35.6 SEC (11.7-14.9)
== END | disposition home or self-care (01) ==
LOC: LAB 09:27
PROVIDERS: PCP Family Medicine; Referring Provider Internal Medicine Cardiovascular Disease; Visit Provider Internal Medicine Cardiovascular Disease
DX: I48.0 Paroxysmal atrial fibrillation (principal); Z79.01 Long term (current) use of 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s
CPT/HCPCS: 36416; 85610

== ENCOUNTER → 2022-08-01 | Outpatient (CLI) | payer MEDICARE, OTHER, SELFPAY ==
[2022-08-01 10:30] LABS: INR Fingerstick 3.2; Prothrombin Time Fingerstick 34.2 SEC (11.7-14.9)
== END | disposition home or self-care (01) ==
LOC: LAB 09:37
PROVIDERS: PCP Family Medicine; Visit Provider Internal Medicine Cardiovascular Disease
DX: I48.0 Paroxysmal atrial fibrillation (principal); Z79.01 Long term (current) use of 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s
CPT/HCPCS: 36416; 85610

== ENCOUNTER 2022-08-22 08:48 | Outpatient (RCR) | payer MEDICARE, OTHER, SELFPAY ==
[2022-08-08 12:40] LABS: INR Fingerstick 2.6; Prothrombin Time Fingerstick 27.7 SEC (11.7-14.9)
[2022-08-22 10:20] LABS: Anion Gap 0 (5-15); BUN 24 mg/dL (7-18); BUN/Creat Ratio 24.3 RATIO (10-20); Calcium,Total 9.3 mg/dL (8.5-10.1); Chloride 103 mmol/L (98-107); Creatinine, Serum 0.99 mg/dL (0.55-1.02); EST Glomerular Filtration Rate 57 mL/min (>60); Est Glom Filt Rate - Afr Amer 69 mL/min (>60); Glucose 104 mg/dL (74-106); Potassium 4.2 mmol/L (3.5-5.1); Sodium Level 135 mmol/L (136-145)
[2022-08-22 10:30] LABS: International Normalized Ratio 2.5; Prothrombin Time (Protime)PT. 26.8 SECONDS (11.7-14.9)
== END 2022-09-04 05:23 | disposition home or self-care (01) ==
LOC: MTLAB 08:48
PROVIDERS: Physician Assistant Medical; PCP Family Medicine; Referring Provider Nurse Practitioner Gerontology; Visit Provider Nurse Practitioner Gerontology
DX: I48.0 Paroxysmal atrial fibrillation (principal)
CPT/HCPCS: 36415; 36416; 80048; 85610

== ENCOUNTER → 2022-09-12 | Outpatient (CLI) | payer MEDICARE, OTHER, SELFPAY ==
[2022-09-14 08:41] LABS: Prothrombin Time Fingerstick 21.7 SEC (11.7-14.9)
== END | disposition home or self-care (01) ==
LOC: LAB 09:49
PROVIDERS: PCP Family Medicine; Visit Provider Internal Medicine Cardiovascular Disease
DX: I48.0 Paroxysmal atrial fibrillation (principal); Z79.01 Long term (current) use of 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s
CPT/HCPCS: 36416; 85610

== ENCOUNTER → 2022-10-10 | Outpatient (CLI) | payer MEDICARE, OTHER, SELFPAY ==
[2022-10-10 11:04] LABS: International Normalized Ratio 1.9; Prothrombin Time (Protime)PT. 22.2 SECONDS (11.7-14.9)
[2022-10-10 11:16] LABS: AST(SGOT) 17 U/L (15-37); Alanine Aminotransfer ALT/SGPT 16 U/L (13-56); Albumin, Serum 3.5 g/dL (3.2-5.0); Alkaline Phosphatase 81 U/L (45-117); Bilirubin, Direct 0.12 mg/dL (0.00-0.30); Cholesterol 153 mg/dL (200); Globulin 3.1 g/dL (2.2-4.2); High Density Lipoprotein 54 mg/dL; Protein, Total 6.6 g/dL (6.4-8.2); Triglycerides 88 mg/dL; Very Low Density Lipoprotein 18 mg/dL (5-40)
== END | disposition home or self-care (01) ==
LOC: LAB 03:49
PROVIDERS: PCP Family Medicine; Referring Provider Internal Medicine Cardiovascular Disease; Visit Provider Internal Medicine Cardiovascular Disease
DX: I48.0 Paroxysmal atrial fibrillation (principal); Z79.01 Long term (current) use of 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s; E78.00 Pure hypercholesterolemia, unspecified
CPT/HCPCS: 36415; 80061; 80076; 85610

== ENCOUNTER 2022-10-22 13:40 | Emergency (ER) | payer MEDICARE, OTHER, SELFPAY ==
[2022-10-22 13:41] VITALS: BP 132/87; PULSE 94; RESP 18; TEMP 36.1; O2SAT 100; BMI 27.6
--- NOTE | 2022-10-22 14:09 | ED.VIS.CHEST ---
HPI History of Present Illness Chief Complaint: Palpitations [facility] Medical History (Updated 10/22/22 @ 15:[address] 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 Long-term use of high-risk medication Nonsustained ventricular tachycardia Obstructive sleep apnea LETICIA (obstructive sleep apnea) Palpitations Paroxysmal A-fib Patent foramen ovale Peripheral neuropathy Pure hypercholesterolemia Snoring Supraventricular tachycardia Home Medications latanoprost 0.005 % eye drops 1 drp QHS 09/12/16 [History Last Taken Unknown] timolol maleate 0.25 % eye drops 1 drp EACH EYE BID 09/12/16 [History Last Taken Unknown] levothyroxine 75 mcg tablet 75 mcg PO DAILY 02/27/20 [History Last Taken Unknown] acetaminophen 500 mg capsule 500 mg PO Q6H PRN 10/21/21 [History Last Taken Unknown] fluticasone propionate 50 mcg/actuation nasal spray,suspension (Allergy Relief (fluticasone)) 1 spray intranasal DAILY PRN allergy symptoms 10/21/21 [History Last Taken Unknown] vitamins A,C,E-gipn-oyhjyn 2,148 mcg-113 mg-45 mg-17.4 mg tablet (PreserVision AREDS) 2 tab PO BID 06/27/22 [History Last Taken Unknown] simvastatin 20 mg tablet 20 mg PO QHS #90 tabs 07/11/22 [Rx Last Taken Unknown] warfarin 4 mg tablet 4 mg PO .COMPLEX #135 tabs 07/11/22 [Rx Last Taken Unknown] cetirizine 10 mg tablet (Zyrtec) 10 mg PO DAILY PRN 08/03/22 [History Last Taken Unknown] cholecalciferol (vitamin D3) 125 mcg (5,000 unit) capsule 125 mcg PO DAILY 08/03/22 [History Last Taken Unknown] carvedilol 6.25 mg tablet 6.25 mg PO BID #180 tabs 08/05/22 [Rx Last Taken Unknown] losartan 50 mg tablet 50 mg PO BID #180 tabs 10/05/22 [Rx Last Taken Unknown] Allergy/AdvReac Type Severity Reaction Status Date / Time enoxaparin [From Lovenox] Allergy Rash Verified 10/22/22 13:44 Sulfa (Sulfonamide Allergy Hives Verified 10/22/22 13:44 Antibiotics) amlodipine AdvReac Intermediate Marked Verified 10/22/22 13:44 swelling in feet and ankles hydrochlorothiazide AdvReac Intermediate urinary Verified 10/22/22 13:44 incontinence/leaking Family History (Reviewed 08/03/22 @ 15:48 by Shawna Oswald RESIDENTIAL ROOFER HELPER, RESIDENTIAL ROOFER HELPER-C) Mother Cancer Colon Diabetes Sister CAD (coronary artery disease) Heart disease Diabetes Surgical History H/O section H/O: hysterectomy History of radiofrequency ablation procedure for cardiac arrhythmia (~08/17/17) History of total right knee replacement Hx of colonoscopy with polypectomy (~2017) S/P appendectomy S/P arthroscopic surgery of left knee S/P excision of lipoma S/P lateral meniscal repair Tooth disorder Social History (Reviewed 08/03/22 @ 15:48 by Shawna Oswald RESIDENTIAL ROOFER HELPER, RESIDENTIAL ROOFER HELPER-C) Smoking Status: Former smoker second hand exposure: No alcohol intake: never substance use type: does not use caffeine: No what type of physical activity do you participate in: other details: stationary bike frequency: daily seatbelt use: always do you feel safe at home: Yes EXAM Physical Exam Const Vital Signs: 10/22/22 13:41 10/22/22 14:15 10/22/22 15:00 Temperature 96.9 F L Temperature Source Temporal Pulse Rate 94 80 Respiratory Rate 18 19 H Respiratory Effort Normal Non-Labored Respiratory Pattern Normal Blood Pressure 132/87 H 144/85 H Blood Pressure Mean 102 104 Pulse Ox 100 99 Oxygen Delivery Method Room Air Room Air 10/22/22 15:59 Temperature Temperature Source Pulse Rate 75 Respiratory Rate 15 Respiratory Effort Respiratory Pattern Blood Pressure 162/95 H Blood Pressure Mean Pulse Ox 98 Oxygen Delivery Method MDM MDM MDM Narrative Medical decision making narrative: HISTORY OF PRESENT ILLNESS: 87-year-old female here with 2 days of palpitations. No chest pain, shortness of breath notes headache and lightheadedness. She states her blood pressures have been labile going as high as 160 systolic and 80 diastolic this is been concerning to her. Patient denies sudden onset or thunderclap headache, denies maximal intensity within 1 minute, vomiting, neck pain or stiffness, changes in vision, fever, history malignancy, syncope, seizures. No urinary complaints. REVIEW OF SYSTEMS: Pertinent positives: Headache, lightheadedness, palpitations Pertinent negatives: Syncope, focal weakness PHYSICAL EXAM: Nursing triage notes reviewed, Vital signs reviewed Constitutional: please see mdm HENT: MMM Eyes: Pupils equal round and reactive to light, Extraocular muscles intact Neck: No stridor, no JVD, full neck ROM Lungs: Clear to auscultation, No wheezing or rales. No increased work of breathing, no conversational dyspnea, no accessory muscle use, no nasal flaring. No respiratory distress noted Heart: Regular rate and rhythm, No murmurs, No rubs and No gallops, 2+ distal pulses (radial, femoral, posterior tibial) in all extremities Abdomen: Soft, there is no tenderness, rigidity, rebound or guarding, no obvious peritoneal signs, no palpable pulsatile abdominal masses, no auscultated abdominal bruit : No CVAT Extremities: No edema Neuro: Alert and oriented x3, neuro exam at baseline, cranial nerves II through XII are intact. No pain with extraocular muscle movement. There is negative test of skew. Normal speech. 5 of 5 strength in upper and lower extremities in flexion extension. Intact sensation to light touch in upper and lower extremity dermatomes. No truncal or extremity ataxia. No dysdiadochokinesia. Normal gait. 2+ reflexes. No meningeal signs. Negative Babinski. NIH of 0 Skin: No rash or lesions noted MEDICAL DECISION MAKING: Chief Complaint: Palpitations External records reviewed: Echocardiogram 2019 shows ejection fraction 65% Factors affecting care: History of paroxysmal A-fib, hypertension, hyperlipidemia is on warfarin Social determinants of health: No drug use History obtained from others: The patient's Consults: None ALL IMAGES (IF OBTAINED) HAVE BEEN PERSONALLY REVIEWED AND INTERPRETED BY MYSELF. [facility] Narrative: Patient was hemodynamically stable, afebrile, nontoxic-appearing. No focal neurologic deficit I considered the following differential diagnosis: Arrhythmia, atrial fibrillation, anemia, electrolyte abnormalities, myocardial ischemia, supratherapeutic INR, acute intracranial abnormality Labs and images were unremarkable for the differential diagnosis list above. No clear etiology patient complaints could be secondary to uncontrolled hypertension. Blood pressure today was within normal limits and not associated with a life-limiting etiology. She was given strict return precautions and follow-up instructions with her collections professional for blood pressure medicine titration. The patient and/or family, caregivers express understanding. The patient and/or family, caregivers agrees with the plan. Total critical care time today provided was at least 0 minutes. This excludes separately billable procedures. Critical care time (if documented) is secondary to the patient having high probability of clinically significant/life threatening deterioration in the patient's condition which required my urgent intervention. Shared decision making: I will have a discussion with the patient and or visitors regarding risk/benefits of further testing or admission. They will be made aware of of the risk/benefits inherent in this decision they will be given the opportunity to voice understanding. Lab Data Attestation: I reviewed the patient's lab results. Lab results narrative: EKG with A-fib rate controlled, left axis deviation, no obvious STEMI CBC with no leukocytosis, anemia, no thrombocytopenia BMP without evidence of significant electrolyte abnormalities, no anion gap, no acute kidney injury. BNP elevated consistent with volume overload Troponin is negative, no evidence of myocardial ischemia INR therapeutic Labs: Laboratory Results - last 24 hr 10/22/22 10/22/22 10/22/22 14:25 14:25 14:25 WBC 5.0 RBC 3.65 L Hgb 11.6 L Hct 35.4 L MCV 97.0 MCH 31.8 MCHC 32.8 RDW Std Deviation 46.3 H RDW Coeff of Corbin 12.9 Plt Count 200 MPV 9.8 Immature Gran % (Auto) 0.400 Neut % (Auto) 60.8 Lymph % (Auto) 28.7 [place] % (Auto) 8.1 Eos % (Auto) 1.4 Baso % (Auto) 0.6 Absolute Neuts (auto) 3.0 Absolute Lymphs (auto) 1.42 Nucleated RBC % 0 PT INR Sodium 141 Potassium 4.4 Chloride 108 H Carbon Dioxide 31.0 Anion Gap 2 L BUN 22 H Creatinine 0.81 Estim Creat Clear Calc 45.69 Est GFR (MDRD) Af Amer 87 Est GFR (MDRD) Non-Af 72 BUN/Creatinine Ratio 27.2 H Glucose 101 Calcium 9.3 Troponin I High Sens 9 B-Natriuretic Peptide 300.6 H 10/22/22 14:25 WBC RBC Hgb Hct MCV MCH MCHC RDW Std Deviation RDW Coeff of [place]bin Plt Count MPV Immature Gran % (Auto) Neut % (Auto) Lymph % (Auto) [place] % (Auto) Eos % (Auto) Baso % (Auto) Absolute Neuts (auto) Absolute Lymphs (auto) Nucleated RBC % PT 25.9 H INR 2.3 Sodium Potassium Chloride Carbon Dioxide Anion Gap BUN Creatinine Estim Creat Clear Calc Est GFR (MDRD) Af Amer Est GFR (MDRD) Non-Af BUN/Creatinine Ratio Glucose Calcium Troponin I High Sens B-Natriuretic Peptide Radiography Diagnostic Testing: Clinical Impression(s) from Imaging Studies Brain CT 10/22/22 14:10 IMPRESSION: Senescent changes with no evidence of acute intracranial bleed, mass or ischemia. Electronically Signed: Johnny Vazquez DO at 15:13 EDT , Chest X-Ray 10/22/22 14:36 IMPRESSION: No evidence of acute cardiopulmonary process. Electronically Signed: Johnny Vazquez DO at 15:14 EDT , Chest x-ray reviewed by myself shows no evidence of pneumonia or heart failure Discharge Plan Triage Chief Complaint: Palpitations ED Provider: Estevan Riley Dx/Rx/DC Orders Clinical Impression: History of essential hypertension, Paroxysmal A-fib Instructions: AFib Dc Prescriptions: No Action fluticasone propionate [Allergy Relief (fluticasone)] 50 mcg/actuation spray,suspension 1 spray INTRANASAL DAILY PRN (Reason: allergy symptoms) Rx Instructions: administer into each nostril acetaminophen 500 mg capsule 500 mg PO Q6H PRN PreserVision AREDS 2,148 mcg-113 mg-45 mg-17.4mg tablet 2 tab PO BID Rx Instructions: administer with AM and PM meals cetirizine [Zyrtec] 10 mg tablet 10 mg PO DAILY PRN cholecalciferol (vitamin D3) 125 mcg (5,000 unit) capsule 125 mcg PO DAILY latanoprost 1 DROP bottle 1 drp QHS timolol maleate 1 DROP drops 1 drp EACH EYE BID levothyroxine 75 mcg tablet 75 mcg PO DAILY Rx Instructions: 1/2 tab on monday warfarin 4 mg tablet 4 mg PO .COMPLEX Qty: 135 3RF Protocol: Dose Management Condition: Monday Dose/Route: 4 mg Instruction: 1 x 4 mg tablet Condition: Monday Dose/Route: 4 mg Instruction: 1 x 4 mg tablet Condition: Monday Dose/Route: 4 mg Instruction: 1 x 4 mg tablet Condition: Monday Dose/Route: 4 mg Instruction: 1 x 4 mg tablet Condition: Dose/Route: 4 mg Instruction: 1 x 4 mg tablet Condition: Monday Dose/Route: 4 mg Instruction: 1 x 4 mg tablet Condition: Monday Dose/Route: 4 mg Instruction: 1 x 4 mg tablet Protocol Text: Adjustment Start Date: Monday10/10/22 INR Value: 1.9 INR Date: 10/10/22 Recheck Date: 10/24/22 Rx Instructions: 4 mg orally 1 and 1/2 tablets (6mg) on Mondays, 1 tablet (4 mg) all other days; simvastatin 20 mg tablet 20 mg PO QHS Qty: 90 3RF carvedilol 6.25 mg tablet 6.25 mg PO BID Qty: 180 3RF Rx Instructions: must administer with a meal/food losartan 50 mg tablet 50 mg PO BID Qty: 180 3RF Primary Care Provider: Luis M Lama Referrals: Luis M Lama DO [Primary Care Provider] - Activity Restrictions/Additional Instructions: Thank you for trusting us with your care today! Please continue to take your home blood pressure medicine as prescribed. Please return to the emergency department if your symptoms change or worsen. Specifically develop focal weakness, numbness, slurred speech, loss of vision, chest pain, shortness of breath if you lose consciousness. Please follow with your primary care physician, collections professional for further outpatient evaluation and management of your blood pressure medication. Disposition Disposition: Home, Self Care Discharge Date/Time: 10/22/22 16:16
--- NOTE | 2022-10-22 14:10 | EKG12_ITS ---
Test Reason : CP Blood Pressure : / mmHG Vent. Rate : 088 BPM Atrial Rate : 000 BPM P-R Int : 000 ms QRS Dur : 118 ms QT Int : 340 ms P-R-T Axes : 000 -51 040 degrees QTc Int : 411 ms Atrial fibrillation Left axis deviation Minimal voltage criteria for LVH, may be normal variant ( [place] product ) Septal infarct , age undetermined Abnormal ECG Confirmed by TAMMY ROCHE, HELEN ([id number]), pictures editor JAIME MARTIN ([id number]) on 10/24/2022 10:58:56 A M Referred By: VICKY Confirmed By:LUCIE MUNOZ MD
--- NOTE | 2022-10-22 14:10 | CT_ITS ---
STUDY: CT BRAIN WITHOUT CONTRAST REASON FOR EXAM: Female, 87 years old. HANSEN r/o mass or bleed. LIGHTHEADED RADIATION DOSAGE (If Supplied By Facility): CTDIvol = ( 44.99 ) mGy, DLP = ( 829.85 ) mGycm TECHNIQUE: Transaxial CT imaging of the brain was performed without administration of intravenous contrast material. Individualized dose optimization techniques were used for this CT. COMPARISON: No relevant priors. FINDINGS: Normal soft tissue structures. Normal calvarium. There is moderate cerebral atrophy with widening of the extra-axial spaces and ventricular dilatation. There are areas of decreased attenuation within the white matter tracts of the supratentorial brain, consistent with microvascular disease changes. There are small punctate calcifications of the basal ganglia which are seen in the aging brain as a normal variant. Normal brainstem. Normal cerebellum. There is no intracranial hemorrhage. There are no findings of an acute ischemic infarction. Normal visualized paranasal sinuses. CT/Brain/Head without Contrast IMPRESSION: Senescent changes with no evidence of acute intracranial bleed, mass or ischemia. Electronically Signed: Johnny Vazquez DO at 15:13 EDT ,
--- NOTE | 2022-10-22 14:36 | RAD_ITS ---
STUDY: X-RAY CHEST REASON FOR EXAM: Female, 87 years old. Palpitations TECHNIQUE: Single AP portable view of the chest. COMPARISON: 05/09/2019 FINDINGS: The lungs are clear and expanded. There is no demonstrated pleural abnormality. Normal size heart. Normal mediastinum and mickey. Normal visualized pulmonary arteries. There is atherosclerotic calcification of the aortic arch with tortuosity. Normal visualized thoracic spine. Normal visualized ribs, clavicles, and shoulders. There is no demonstrated abnormality of the visualized soft tissue structures of the upper abdomen. RAD/Chest 1 View (Portable) IMPRESSION: No evidence of acute cardiopulmonary process. Electronically Signed: Johnny Vazquez DO at 15:14 EDT ,
[2022-10-22 14:41] LABS: Absolute Lymphocyte Count 1.42 X10^3/uL (0.83-4.51); Basophil# 0.03 X10^3/uL; Basophil% 0.6 % (0-1); Eosinophil# 0.07 X10^3/uL; Eosinophils% 1.4 % (0-5); Hematocrit 35.4 % (37-47); Hemoglobin 11.6 g/dL (12.0-15.0); Lymphocyte # 1.42 X10^3/ul (0.83-4.51); Lymphocyte % 28.7 % (19-41); Mean Corp Hgb Conc 32.8 g/dL (32-36); Mean Corpuscular Hgb 31.8 pg (27.0-32.0); Mean Platelet Vol. 9.8 fl (6.2-12.0); Monocyte% 8.1 % (0-10); NRBC Flagged by Analyzer 0 % (0-5); Neutrophil # 3.01 X10^3/uL (2.7-7.7); Neutrophil % 60.8 % (47-70); Platelet Count 200 K/mm3 (150-450); RBC Distribution Width CV 12.9 % (11.6-14.6); RBC Distribution Width SD 46.3 fl (35.1-43.9); Red Blood Count 3.65 M/mm3 (4.2-5.4)
[2022-10-22 14:48] LABS: International Normalized Ratio 2.3; Prothrombin Time (Protime)PT. 25.9 SECONDS (11.7-14.9)
[2022-10-22 14:57] LABS: Anion Gap 2 (5-15); BUN 22 mg/dL (7-18); BUN/Creat Ratio 27.2 RATIO (10-20); Calcium,Total 9.3 mg/dL (8.5-10.1); Chloride 108 mmol/L (98-107); Creatinine, Serum 0.81 mg/dL (0.55-1.02); EST Glomerular Filtration Rate 72 mL/min (>60); Est Glom Filt Rate - Afr Amer 87 mL/min (>60); Estimated Creatinine Clearance 45.69 ml/min; Glucose 101 mg/dL (74-106); Potassium 4.4 mmol/L (3.5-5.1); Sodium Level 141 mmol/L (136-145); Troponin-I HS 9 pg/mL (3.0-54.0)
[2022-10-22 14:58] LABS: BNP,B-Type NATRIURETIC PEPTIDE 300.6 pg/mL (0-100)
[2022-10-22 15:00] VITALS: BP 144/85; PULSE 80; RESP 19; O2SAT 99
[2022-10-22 15:59] VITALS: BP 162/95; PULSE 75; RESP 15; O2SAT 98
== END 2022-10-22 16:16 | disposition home or self-care (01) ==
PROVIDERS: Emergency Provider Emergency Medicine; PCP Family Medicine; Visit Provider Emergency Medicine
DX: I10 Essential (primary) hypertension (principal); I48.0 Paroxysmal atrial fibrillation; R00.2 Palpitations; Z87.891 Personal history of nicotine dependence; E78.00 Pure hypercholesterolemia, unspecified; Z79.01 Long term (current) use of 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s; R06.02 Shortness of breath
CPT/HCPCS: 70450; 71045; 80048; 83880; 84484; 85025; 85610; 93005; 99284; A4216

== ENCOUNTER → 2022-11-14 | Outpatient (CLI) | payer MEDICARE, OTHER, SELFPAY ==
[2022-11-14 10:58] LABS: International Normalized Ratio 3.7; Prothrombin Time (Protime)PT. 37.2 SECONDS (11.7-14.9)
== END | disposition home or self-care (01) ==
LOC: LAB 09:01
PROVIDERS: PCP Family Medicine; Visit Provider Internal Medicine Cardiovascular Disease
DX: I48.0 Paroxysmal atrial fibrillation (principal); Z79.01 Long term (current) use of 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s
CPT/HCPCS: 36415; 85610

== ENCOUNTER → 2022-11-21 | Outpatient (CLI) | payer MEDICARE, OTHER, SELFPAY ==
[2022-11-21 10:34] LABS: International Normalized Ratio 2.1; Prothrombin Time (Protime)PT. 23.7 SECONDS (11.7-14.9)
== END | disposition home or self-care (01) ==
LOC: LAB 08:38
PROVIDERS: PCP Family Medicine; Referring Provider Internal Medicine Cardiovascular Disease; Visit Provider Internal Medicine Cardiovascular Disease
DX: I48.0 Paroxysmal atrial fibrillation (principal); Z79.01 Long term (current) use of 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s
CPT/HCPCS: 36415; 85610

== ENCOUNTER → 2022-12-05 | Outpatient (CLI) | payer MEDICARE, OTHER, SELFPAY ==
[2022-12-05 10:49] LABS: International Normalized Ratio 2.2; Prothrombin Time (Protime)PT. 24.4 SECONDS (11.7-14.9)
== END | disposition home or self-care (01) ==
PROVIDERS: PCP Family Medicine; Visit Provider Internal Medicine Cardiovascular Disease
DX: I48.0 Paroxysmal atrial fibrillation (principal); Z79.01 Long term (current) use of 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s
CPT/HCPCS: 36415; 85610

== ENCOUNTER → 2022-12-29 | Outpatient (CLI) | payer MEDICARE, OTHER, SELFPAY | END | disposition home or self-care (01) | LOC: LABSPEC 13:30 | PROVIDERS: PCP Family Medicine; Referring Provider Family Medicine; Visit Provider Family Medicine | DX: R30.0 Dysuria (principal) | CPT/HCPCS: 87077; 87086; 87088; 87186 ==

== ENCOUNTER 2023-01-02 09:08 | Outpatient (RCR) | payer MEDICARE, OTHER, SELFPAY ==
[2023-01-02 10:17] LABS: International Normalized Ratio 2.8; Prothrombin Time (Protime)PT. 30.3 SECONDS (11.7-14.9)
== END 2023-01-02 18:00 | disposition home or self-care (01) ==
LOC: MTLAB 09:08
PROVIDERS: Internal Medicine Cardiovascular Disease; PCP Family Medicine; Referring Provider Nurse Practitioner Gerontology; Visit Provider Nurse Practitioner Gerontology
DX: I48.0 Paroxysmal atrial fibrillation (principal)
CPT/HCPCS: 36415; 85610

== ENCOUNTER 2023-01-30 09:01 | Outpatient (RCR) | payer MEDICARE, OTHER, SELFPAY ==
[2023-01-30 10:44] LABS: International Normalized Ratio 3.7; Prothrombin Time (Protime)PT. 37.1 SECONDS (11.7-14.9)
== END 2023-01-30 18:00 | disposition home or self-care (01) ==
LOC: MTLAB 09:01
PROVIDERS: PCP Family Medicine; Referring Provider Nurse Practitioner Gerontology; Visit Provider Nurse Practitioner Gerontology
DX: I48.0 Paroxysmal atrial fibrillation (principal)
CPT/HCPCS: 36415; 85610

== ENCOUNTER 2023-02-27 08:40 | Outpatient (RCR) | payer MEDICARE, OTHER, SELFPAY ==
[2023-02-06 10:17] LABS: International Normalized Ratio 2.6; Prothrombin Time (Protime)PT. 28.1 SECONDS (11.7-14.9)
[2023-02-27 10:21] LABS: International Normalized Ratio 2.6
== END 2023-02-27 18:00 | disposition home or self-care (01) ==
LOC: MTLAB 08:40
PROVIDERS: PCP Family Medicine; Referring Provider Nurse Practitioner Gerontology; Visit Provider Nurse Practitioner Gerontology
DX: I48.0 Paroxysmal atrial fibrillation (principal)
CPT/HCPCS: 36415; 85610

== ENCOUNTER 2023-03-27 08:41 | Outpatient (RCR) | payer MEDICARE, OTHER, SELFPAY ==
[2023-03-27 10:46] LABS: International Normalized Ratio 2.8; Prothrombin Time (Protime)PT. 29.5 SECONDS (11.7-14.9)
== END 2023-04-06 18:00 | disposition home or self-care (01) ==
LOC: MTLAB 08:41
PROVIDERS: PCP Family Medicine; Referring Provider Nurse Practitioner Gerontology; Visit Provider Nurse Practitioner Gerontology
DX: I48.0 Paroxysmal atrial fibrillation (principal)
CPT/HCPCS: 36415; 85610

== ENCOUNTER 2023-04-24 08:36 | Outpatient (RCR) | payer MEDICARE, OTHER, SELFPAY ==
[2023-04-24 10:55] LABS: Absolute Lymphocyte Count 1.25 X10^3/uL (0.83-4.51); Basophil# 0.03 X10^3/uL; Basophil% 0.8 % (0-1); Eosinophil# 0.04 X10^3/uL; Eosinophils% 1.1 % (0-5); Hematocrit 33.7 % (37-47); Hemoglobin 10.5 g/dL (12.0-15.0); Lymphocyte # 1.25 X10^3/ul (0.83-4.51); Lymphocyte % 33.5 % (19-41); Mean Corp Hgb Conc 31.2 g/dL (32-36); Mean Corpuscular Hgb 31.4 pg (27.0-32.0); Mean Corpuscular Volume 100.9 fL (81-99); Mean Platelet Vol. 10.4 fl (6.2-12.0); Monocyte% 10.7 % (0-10); NRBC Flagged by Analyzer 0 % (0-5); Neutrophil % 53.6 % (47-70); Platelet Count 214 K/mm3 (150-450); RBC Distribution Width CV 13.4 % (11.6-14.6); Red Blood Count 3.34 M/mm3 (4.2-5.4); White Blood Count 3.7 K/mm3 (4.4-11.0)
[2023-04-24 11:10] LABS: International Normalized Ratio 2.5; Prothrombin Time (Protime)PT. 27.3 SECONDS (11.7-14.9)
[2023-04-24 11:13] LABS: ALB/GLOB Ratio 1.1 RATIO (0.9-2.4); AST(SGOT) 26 U/L (15-37); Alanine Aminotransfer ALT/SGPT 18 U/L (13-56); Albumin, Serum 3.4 g/dL (3.2-5.0); Alkaline Phosphatase 70 U/L (45-117); Anion Gap 4 (5-15); BUN 23 mg/dL (7-18); BUN/Creat Ratio 20.5 RATIO (10-20); Bilirubin, Direct 0.06 mg/dL (0.00-0.30); Calcium,Total 8.4 mg/dL (8.5-10.1); Chloride 109 mmol/L (98-107); Cholesterol 168 mg/dL (200); Creatinine, Serum 1.12 mg/dL (0.55-1.02); EST Glomerular Filtration Rate 49 mL/min (>60); Est Glom Filt Rate - Afr Amer 59 mL/min (>60); Glucose 85 mg/dL (74-106); High Density Lipoprotein 65 mg/dL; Potassium 4.5 mmol/L (3.5-5.1); Protein, Total 6.4 g/dL (6.4-8.2); Sodium Level 142 mmol/L (136-145); T4 Free Direct 1.54 ng/dL (0.76-1.46); Thyroid Stim Hormone (TSH) 3.73 uIU/mL (0.358-3.74); Triglycerides 66 mg/dL; Very Low Density Lipoprotein 13 mg/dL (5-40)
== END 2023-05-07 18:00 | disposition home or self-care (01) ==
LOC: MTLAB 08:36
PROVIDERS: PCP Family Medicine; Referring Provider Nurse Practitioner Gerontology; Visit Provider Nurse Practitioner Gerontology
DX: I48.0 Paroxysmal atrial fibrillation (principal); E78.00 Pure hypercholesterolemia, unspecified
CPT/HCPCS: 36415; 80053; 80061; 82248; 84439; 84443; 85025; 85610

== ENCOUNTER → 2023-05-04 | Outpatient (CLI) | payer MEDICARE, OTHER, SELFPAY ==
[2023-05-04 10:25] LABS: Vitamin B12 1022 pg/mL (211-911)
[2023-05-04 10:26] LABS: Ferritin 55 ng/mL (8-252); Iron 57 ug/dL (50-170); LDH 239 U/L (84-246)
== END | disposition home or self-care (01) ==
LOC: MTLAB 08:39
PROVIDERS: PCP Family Medicine; Referring Provider Family Medicine; Visit Provider Family Medicine
DX: D64.9 Anemia, unspecified (principal)
CPT/HCPCS: 36415; 82607; 82728; 83540; 83615

== ENCOUNTER 2023-05-31 11:10 | Outpatient (RCR) | payer MEDICARE, OTHER, SELFPAY ==
[2023-05-22 10:06] LABS: International Normalized Ratio 2.4; Prothrombin Time (Protime)PT. 26.3 SECONDS (11.7-14.9)
[2023-05-31 12:34] LABS: Absolute Lymphocyte Count 1.27 X10^3/uL (0.83-4.51); Absolute Neutrophil Count 3.6 X10^3/uL (2.0-7.7); Basophil# 0.03 X10^3/uL; Basophil% 0.5 % (0-1); Eosinophil# 0.07 X10^3/uL; Eosinophils% 1.3 % (0-5); Hematocrit 35.2 % (37-47); Hemoglobin 11.3 g/dL (12.0-15.0); Lymphocyte # 1.27 X10^3/ul (0.83-4.51); Lymphocyte % 23.2 % (19-41); Mean Corp Hgb Conc 32.1 g/dL (32-36); Mean Corpuscular Hgb 31.4 pg (27.0-32.0); Mean Corpuscular Volume 97.8 fL (81-99); Mean Platelet Vol. 10.5 fl (6.2-12.0); Monocyte# 0.52 X10^3/uL; Monocyte% 9.5 % (0-10); NRBC Flagged by Analyzer 0 % (0-5); Neutrophil # 3.56 X10^3/uL (2.7-7.7); Neutrophil % 65.1 % (47-70); Platelet Count 208 K/mm3 (150-450); RBC Distribution Width SD 46.7 fl (35.1-43.9); White Blood Count 5.5 K/mm3 (4.4-11.0)
[2023-05-31 12:40] LABS: Prothrombin Time (Protime)PT. 31.6 SECONDS (11.7-14.9)
[2023-05-31 13:26] LABS: ALB/GLOB Ratio 1.2 RATIO (0.9-2.4); AST(SGOT) 23 U/L (15-37); Alanine Aminotransfer ALT/SGPT 18 U/L (13-56); Albumin, Serum 3.7 g/dL (3.2-5.0); Alkaline Phosphatase 82 U/L (45-117); Anion Gap 4 (5-15); BUN 26 mg/dL (7-18); BUN/Creat Ratio 25.2 RATIO (10-20); Bilirubin, Direct 0.13 mg/dL (0.00-0.30); Calcium,Total 9.4 mg/dL (8.5-10.1); Chloride 106 mmol/L (98-107); Cholesterol 167 mg/dL (200); Creatinine, Serum 1.03 mg/dL (0.55-1.02); EST Glomerular Filtration Rate 54 mL/min (>60); Est Glom Filt Rate - Afr Amer 65 mL/min (>60); Globulin 3.2 g/dL (2.2-4.2); Glucose 89 mg/dL (74-106); High Density Lipoprotein 63 mg/dL; Potassium 4.6 mmol/L (3.5-5.1); Protein, Total 6.9 g/dL (6.4-8.2); Sodium Level 138 mmol/L (136-145); T4 Free Direct 1.93 ng/dL (0.76-1.46); Thyroid Stim Hormone (TSH) 2.62 uIU/mL (0.358-3.74); Triglycerides 73 mg/dL; Very Low Density Lipoprotein 15 mg/dL (5-40)
== END 2023-05-31 18:00 | disposition home or self-care (01) ==
LOC: MTLAB 11:10
PROVIDERS: Internal Medicine Cardiovascular Disease; PCP Family Medicine; Referring Provider Nurse Practitioner Gerontology; Visit Provider Nurse Practitioner Gerontology
DX: I48.0 Paroxysmal atrial fibrillation (principal); I10 Essential (primary) hypertension; E03.9 Hypothyroidism, unspecified; E78.5 Hyperlipidemia, unspecified; Z79.899 Other long term (current) drug therapy
CPT/HCPCS: 36415; 80053; 80061; 82248; 84439; 84443; 85025; 85610

== ENCOUNTER → 2023-06-07 | Outpatient (CLI) | payer MEDICARE, OTHER, SELFPAY | END | disposition home or self-care (01) | LOC: PSN 08:47 | PROVIDERS: PCP Family Medicine; Referring Provider Internal Medicine Cardiovascular Disease; Visit Provider Internal Medicine Cardiovascular Disease | DX: I48.0 Paroxysmal atrial fibrillation (principal); Z98.890 Other specified postprocedural states | CPT/HCPCS: 93225; 93226 ==

== ENCOUNTER → 2023-06-28 | Outpatient (CLI) | payer MEDICARE, OTHER, SELFPAY ==
--- NOTE | 2023-06-28 10:46 | ECHOD_ITS ---
Reason For Study: ATRIAL FIBRILLATION Procedure This was a 2D Doppler, Color Flow transthoracic echocardiogram. Exam performed in department. Left Ventricle Normal LV size. Left ventricular systolic function is normal. The estimated ejection fraction is 60 %. Stage 2 diastolic dysfunction. No regional wall motion abnormalities noted. Right Ventricle Normal RV size. Normal systolic function. Atria Normal left atrium. Normal right atrium. Mitral Valve Normal mitral valve. Mild (1+) eccentric mitral valve insufficiency. Tricuspid Valve Normal tricuspid valve. Mild tricuspid valve insufficiency. Pulmonary artery systolic pressure is 38 mmHg. Aortic Valve Trisinus/trileaflet aortic valve. Mild focal aortic valve thickening. Pulmonic Valve Normal pulmonic valve. Great Vessels Normal aortic root. The pulmonary artery is normal size. Normal inferior vena cava. Pericardium/Pleural No pericardial effusion. MMode/2D Measurements & Calculations LVIDd: 4.9 cm IVSd: 1.0 cm LVOT diam: 2.0 cm LVIDs: 3.4 cm LVPWd: 0.83 cm LVOT area: 3.3 cm2 RVDd: 3.6 cm FS: 31.0 % Ao root diam: 3.2 cm LAV(MOD-bp): 57.8 ml LVAd ap4: 26.4 cm2 LAV(MOD-bp) Indexed: 34.3 ml/m2 LVLd ap4: 7.3 cm LAV(MOD-sp2): 62.8 ml EDV(MOD-sp4): 75.1 ml LAV(MOD-sp4): 53.9 ml EDV(sp4-el): 81.7 ml LVAs ap4: 15.6 cm2 LVLs ap4: 6.1 cm ESV(MOD-sp4): 31.3 ml ESV(sp4-el): 33.5 ml EF(MOD-sp4): 58.3 % EF(sp4-el): 59.0 % LVAd ap2: 27.3 cm2 SV(MOD-sp4): 43.8 ml SV(MOD-sp2): 52.1 ml LVLd ap2: 7.1 cm EDV(MOD-sp2): 82.6 ml EDV(sp2-el): 89.5 ml LVAs ap2: 15.2 cm2 LVLs ap2: 6.0 cm ESV(MOD-sp2): 30.5 ml ESV(sp2-el): 32.7 ml EF(MOD-sp2): 63.1 % SV(sp4-el): 48.2 ml LA dimension(2D): 4.0 cm LA A4 area: 19.1 cm2 RA A4 area: 14.9 cm2 TAPSE: 2.5 cm Time Measurements MV dec time: 0.25 sec Doppler Measurements & Calculations MV E max doni: 78.5 cm/sec Lat Peak E' Doni: 7.5 cm/sec Med Peak E' Doni: 5.4 cm/sec MV A max doni: 40.7 cm/sec E/E' lat: 10.5 E/E' med: 14.6 MV E/A: 1.9 Ao V2 max: 140.2 cm/sec LV V1 max: 102.9 cm/sec MV dec slope: 317.7 cm/sec2 Ao max P.9 mmHg LV V1 max P.2 mmHg Ao V2 mean: 94.3 cm/sec LV V1 mean P.4 mmHg Ao mean P.1 mmHg LV V1 mean: 72.6 cm/sec Ao V2 VTI: 39.5 cm LV V1 VTI: 30.1 cm AV (velocity ratio): 0.76 NEHEMIAS(I,D): 2.5 cm2 NEHEMIAS(V,D): 2.4 cm2 SV(LVOT): 98.2 ml PA V2 max: 95.3 cm/sec TR max doni: 292.1 cm/sec PA max PG (full): 1.8 mmHg TR max P.1 mmHg ECHO/Echo Complete Interpretation Summary Normal LV size. Left ventricular systolic function is normal. The estimated ejection fraction is 60 %. Pulmonary artery systolic pressure is 38 mmHg. Stage 2 diastolic dysfunction. Ordering Physician: Obey Martinez Referring Physician: Luis M Lama Performed By: Rosaline Lozada RDCS
== END | disposition home or self-care (01) ==
LOC: CVS 10:45
PROVIDERS: PCP Family Medicine; Referring Provider Internal Medicine Cardiovascular Disease; Visit Provider Internal Medicine Cardiovascular Disease
DX: I48.0 Paroxysmal atrial fibrillation (principal)
CPT/HCPCS: 93306

== ENCOUNTER 2023-07-03 08:49 | Outpatient (RCR) | payer MEDICARE, OTHER, SELFPAY ==
[2023-07-03 10:11] LABS: International Normalized Ratio 3.4
[2023-07-03 10:18] LABS: Absolute Lymphocyte Count 1.26 X10^3/uL (0.83-4.51); Absolute Neutrophil Count 2.6 X10^3/uL (2.0-7.7); Basophil# 0.04 X10^3/uL; Basophil% 0.9 % (0-1); Eosinophil# 0.08 X10^3/uL; Eosinophils% 1.8 % (0-5); Hematocrit 35.3 % (37-47); Hemoglobin 11.2 g/dL (12.0-15.0); Lymphocyte # 1.26 X10^3/ul (0.83-4.51); Lymphocyte % 28.1 % (19-41); Mean Corp Hgb Conc 31.7 g/dL (32-36); Mean Corpuscular Hgb 31.2 pg (27.0-32.0); Mean Corpuscular Volume 98.3 fL (81-99); Mean Platelet Vol. 10.5 fl (6.2-12.0); Monocyte# 0.45 X10^3/uL; NRBC Flagged by Analyzer 0 % (0-5); Neutrophil # 2.64 X10^3/uL (2.7-7.7); Platelet Count 207 K/mm3 (150-450); RBC Distribution Width CV 13.2 % (11.6-14.6); RBC Distribution Width SD 47.2 fl (35.1-43.9); Red Blood Count 3.59 M/mm3 (4.2-5.4); White Blood Count 4.5 K/mm3 (4.4-11.0)
== END 2023-07-06 18:00 | disposition home or self-care (01) ==
LOC: LAB 08:49
PROVIDERS: Nurse Practitioner Family; PCP Family Medicine; Referring Provider Nurse Practitioner Gerontology; Visit Provider Nurse Practitioner Gerontology
DX: I48.0 Paroxysmal atrial fibrillation (principal); Z79.01 Long term (current) use of 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s
CPT/HCPCS: 36415; 85025; 85610

== ENCOUNTER 2023-07-31 08:51 | Outpatient (RCR) | payer MEDICARE, OTHER, SELFPAY ==
[2023-07-10 17:41] LABS: International Normalized Ratio 3.2; Prothrombin Time (Protime)PT. 32.4 SECONDS (11.7-14.9)
[2023-07-17 10:22] LABS: International Normalized Ratio 2.6; Prothrombin Time (Protime)PT. 27.7 SECONDS (11.7-14.9)
[2023-07-31 10:45] LABS: International Normalized Ratio 2.1; Prothrombin Time (Protime)PT. 23.1 SECONDS (11.7-14.9)
[2023-07-31 12:03] LABS: Hemoglobin A1c 5.3 % (3.8-5.6)
== END 2023-08-06 02:07 | disposition home or self-care (01) ==
LOC: MTLAB 08:51
PROVIDERS: PCP Family Medicine; Referring Provider Nurse Practitioner Gerontology; Visit Provider Nurse Practitioner Gerontology
DX: I48.0 Paroxysmal atrial fibrillation (principal)
CPT/HCPCS: 36415; 83036; 85610

== ENCOUNTER → 2023-08-16 | Outpatient (CLI) | payer MEDICARE, OTHER, SELFPAY ==
[2023-08-16 17:46] LABS: Hemoglobin 10.9 g/dL (12.0-15.0)
== END | disposition home or self-care (01) ==
PROVIDERS: PCP Family Medicine; Referring Provider Family Medicine; Visit Provider Family Medicine
DX: D64.9 Anemia, unspecified (principal)
CPT/HCPCS: 36415; 85018

== ENCOUNTER 2023-09-04 08:44 | Outpatient (RCR) | payer MEDICARE, OTHER, SELFPAY ==
[2023-09-04 10:13] LABS: International Normalized Ratio 1.5; Prothrombin Time (Protime)PT. 18.4 SECONDS (11.7-14.9)
== END 2023-09-05 22:06 | disposition home or self-care (01) ==
LOC: MTLAB 08:44
PROVIDERS: PCP Family Medicine; Referring Provider Nurse Practitioner Gerontology; Visit Provider Nurse Practitioner Gerontology
DX: I48.0 Paroxysmal atrial fibrillation (principal); Z79.01 Long term (current) use of 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s
CPT/HCPCS: 36415; 85610

== ENCOUNTER 2023-10-03 08:32 | Outpatient (RCR) | payer MEDICARE, OTHER, SELFPAY ==
[2023-09-11 11:10] LABS: Prothrombin Time (Protime)PT. 22.3 SECONDS (11.7-14.9)
[2023-10-03 10:27] LABS: International Normalized Ratio 1.5; Prothrombin Time (Protime)PT. 18.2 SECONDS (11.7-14.9)
== END 2023-10-03 18:00 | disposition home or self-care (01) ==
LOC: MTLAB 08:32
PROVIDERS: PCP Family Medicine; Referring Provider Nurse Practitioner Gerontology; Visit Provider Nurse Practitioner Gerontology
DX: I48.0 Paroxysmal atrial fibrillation (principal); Z79.01 Long term (current) use of 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s
CPT/HCPCS: 36415; 85610

== ENCOUNTER 2023-10-23 08:45 | Outpatient (RCR) | payer MEDICARE, OTHER, SELFPAY ==
[2023-10-09 10:50] LABS: International Normalized Ratio 1.8; Prothrombin Time (Protime)PT. 20.7 SECONDS (11.7-14.9)
[2023-10-23 10:12] LABS: International Normalized Ratio 1.8; Prothrombin Time (Protime)PT. 20.6 SECONDS (11.7-14.9)
== END 2023-10-23 18:00 | disposition home or self-care (01) ==
LOC: MTLAB 08:45
PROVIDERS: Internal Medicine Cardiovascular Disease; PCP Family Medicine; Referring Provider Nurse Practitioner Gerontology; Visit Provider Nurse Practitioner Gerontology
DX: I48.0 Paroxysmal atrial fibrillation (principal); Z79.01 Long term (current) use of 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s
CPT/HCPCS: 36415; 85610

== ENCOUNTER 2023-11-27 08:17 | Outpatient (RCR) | payer MEDICARE, OTHER, SELFPAY ==
[2023-11-06 10:20] LABS: International Normalized Ratio 2.1; Prothrombin Time (Protime)PT. 23.4 SECONDS (11.7-14.9)
[2023-11-27 10:02] LABS: International Normalized Ratio 2.6
== END 2023-12-06 18:00 | disposition home or self-care (01) ==
LOC: MTLAB 08:17
PROVIDERS: PCP Family Medicine; Referring Provider Nurse Practitioner Gerontology; Visit Provider Nurse Practitioner Gerontology
DX: I48.0 Paroxysmal atrial fibrillation (principal)
CPT/HCPCS: 36415; 85610

== ENCOUNTER → 2023-12-13 | Outpatient (CLI) | payer MEDICARE, OTHER, SELFPAY ==
[2023-12-13 15:38] LABS: Vitamin B12 772 pg/mL (211-911)
[2023-12-16 10:42] LABS: Zinc, Plasma or Serum 82 ug/dL (44-115)
== END | disposition home or self-care (01) ==
LOC: MTLAB 12:37
PROVIDERS: PCP Family Medicine; Referring Provider Nurse Practitioner Family; Visit Provider Nurse Practitioner Family
DX: R43.2 Parageusia (principal); I48.0 Paroxysmal atrial fibrillation; I10 Essential (primary) hypertension; E78.00 Pure hypercholesterolemia, unspecified
CPT/HCPCS: 36415; 82607; 84630

== ENCOUNTER 2023-12-25 08:29 | Outpatient (RCR) | payer MEDICARE, OTHER, SELFPAY ==
[2023-12-25 10:39] LABS: International Normalized Ratio 2.3; Prothrombin Time (Protime)PT. 25.4 SECONDS (11.7-14.9)
== END 2023-12-25 18:00 | disposition home or self-care (01) ==
LOC: MTLAB 08:29
PROVIDERS: PCP Family Medicine; Referring Provider Nurse Practitioner Gerontology; Visit Provider Nurse Practitioner Gerontology
DX: I48.0 Paroxysmal atrial fibrillation (principal); Z79.01 Long term (current) use of 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s
CPT/HCPCS: 36415; 85610

== ENCOUNTER 2024-01-03 11:34 | Inpatient (IN) | payer MEDICARE, OTHER, SELFPAY ==
[2024-01-03 10:58] VITALS: BMI 25.4
[2024-01-03 11:02] VITALS: BP 128/85; PULSE 54; RESP 17; TEMP 36.6; O2SAT 100
[2024-01-03] MEDS: 0.9% Saline Lock 10 ML Syringe IV (12:33)
[2024-01-03 12:50] LABS: Absolute Lymphocyte Count 1.16 X10^3/uL (0.83-4.51); Absolute Neutrophil Count 2.3 X10^3/uL (2.0-7.7); Basophil# 0.02 X10^3/uL; Basophil% 0.5 % (0-1); Eosinophil# 0.03 X10^3/uL; Eosinophils% 0.8 % (0-5); Hematocrit 34.8 % (37-47); Hemoglobin 11.3 g/dL (12.0-15.0); Lymphocyte # 1.16 X10^3/ul (0.83-4.51); Lymphocyte % 29.4 % (19-41); Mean Corp Hgb Conc 32.5 g/dL (32-36); Mean Corpuscular Hgb 31.4 pg (27.0-32.0); Mean Corpuscular Volume 96.7 fL (81-99); Mean Platelet Vol. 9.7 fl (6.2-12.0); Monocyte# 0.38 X10^3/uL; Monocyte% 9.6 % (0-10); NRBC Flagged by Analyzer 0 % (0-5); Neutrophil # 2.34 X10^3/uL (2.7-7.7); Neutrophil % 59.4 % (47-70); Platelet Count 187 K/mm3 (150-450); RBC Distribution Width CV 13.2 % (11.6-14.6); RBC Distribution Width SD 47.4 fl (35.1-43.9); White Blood Count 3.9 K/mm3 (4.4-11.0)
[2024-01-03 13:01] LABS: International Normalized Ratio 2.1; Prothrombin Time (Protime)PT. 23.7 SECONDS (11.7-14.9)
[2024-01-03 13:45] LABS: ALB/GLOB Ratio 1.2 RATIO (0.9-2.4); AST(SGOT) 18 U/L (15-37); Alanine Aminotransfer ALT/SGPT 12 U/L (13-56); Albumin, Serum 3.5 g/dL (3.2-5.0); Alkaline Phosphatase 78 U/L (45-117); Anion Gap 4 (5-15); BUN 18 mg/dL (7-18); BUN/Creat Ratio 21.2 RATIO (10-20); Calcium,Total 9.3 mg/dL (8.5-10.1); Chloride 106 mmol/L (98-107); Creatinine, Serum 0.85 mg/dL (0.55-1.02); EST Glomerular Filtration Rate 67 mL/min (>60); Est Glom Filt Rate - Afr Amer 82 mL/min (>60); Estimated Creatinine Clearance 46.44 ml/min; Glucose 100 mg/dL (74-106); Potassium 4.3 mmol/L (3.5-5.1); Protein, Total 6.5 g/dL (6.4-8.2); Sodium Level 139 mmol/L (136-145)
[2024-01-03] MEDS: Dofetilide 250 MCG Capsule PO ×2 (14:25→22:36)
--- NOTE | 2024-01-03 15:51 | PCM.CONS.C ---
Assessment & Plan Assessment/Plan (1) Paroxysmal A-fib: PLAN: Please see my office note from today for detailed plans and recommendations. I placed a hardcopy in the patient's chart on the floor as well as is already in the EMR. HPI Consult Data Date of Consult: 01/03/24 HPI Narrative HPI Narrative: ELIZABETH CASTRO, is a 88 F who presents with recurrent paroxysmal atrial fibrillation. She actually cardioverted in route to her room from registration. The patient will be admitted for Tikosyn loading. Please see my office note from today's visit for detailed examination and plans. [facility] Medical History H/O abdominal pain Difficulty balancing Pure hypercholesterolemia Essential hypertension Family history of colon cancer in mother [facility] current use of 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 LETICIA (obstructive sleep apnea) Palpitations Supraventricular tachycardia Chest pain, unspecified GERD (gastroesophageal reflux disease) Family history of premature coronary heart disease Patent foramen ovale Peripheral neuropathy Long-term use of high-risk medication Nonsustained ventricular tachycardia Excessive sleepiness Paroxysmal A-fib Snoring Obstructive sleep apnea Home Medications ?Medication ?Instructions ?Recorded ?Last Taken ?Type latanoprost 0.005 % eye drops 1 drp ophthalmic (eye) QHS eyes 09/12/16 Unknown History levothyroxine 75 mcg tablet 75 mcg PO DAILY hypothyroid 02/27/20 Unknown History warfarin 4 mg tablet 4 mg PO .COMPLEX anticoag #135 tabs 10/09/23 Unknown Rx gabapentin 100 mg capsule 200 mg PO QHS neuropathy 12/12/23 Unknown History lorazepam 0.5 mg tablet 0.5 mg PO QHS sleep 12/12/23 Unknown History timolol maleate 0.5 % eye drops 1 drp ophthalmic (eye) BID eye 12/12/23 Unknown History health vit C 250 mg-vit E 90 mg-zinc 40 1 tab PO BID eye health 12/12/23 Unknown History mg-copper 1 [id number] capsule (PreserVision AREDS-2) doxazosin 2 mg tablet 2 mg PO QHS #30 tabs 12/19/23 Unknown Rx metoprolol tartrate 50 mg tablet 50 mg PO DAILY heart rate #30 tabs 01/02/24 Unknown Rx Allergy/AdvReac Type Severity Reaction Status Date / Time enoxaparin (From Lovenox) Allergy Rash Verified 01/03/24 09:51 Sulfa (Sulfonamide Allergy Hives Verified 01/03/24 09:51 Antibiotics) amlodipine AdvReac Intermediate Marked Verified 01/03/24 09:51 swelling in feet and ankles hydrochlorothiazide AdvReac Intermediate urinary Verified 01/03/24 09:51 incontinence/leaking Family History Mother Cancer Colon Diabetes Sister CAD (coronary artery disease) Heart disease Diabetes Son Kidney disease Surgical History Hx of colonoscopy with polypectomy (~2017) History of radiofrequency ablation procedure for cardiac arrhythmia (~08/17/17) Tooth disorder S/P arthroscopic surgery of left knee History of total right knee replacement S/P excision of lipoma H/O section S/P appendectomy S/P lateral meniscal repair H/O: hysterectomy Social History Smoking Status: Former smoker second hand exposure: No alcohol intake: never substance use type: does not use caffeine: No what type of physical activity do you participate in: other details: stationary bike frequency: daily seatbelt use: always do you feel safe at home: Yes Risk Stratification Risk Stratification Applicable: No Objective Data Vital Signs: Vital Signs Temp Pulse Resp BP Pulse Ox O2 Del Method 97.9 F 54 L 17 128/85 H 100 Room Air 01/03/24 11:02 01/03/24 11:02 01/03/24 11:02 01/03/24 11:02 01/03/24 11:02 01/03/24 11:15 Oxygen Delivery Method Room Air Weight: 152 lb 12.485 oz Body Mass Index (BMI) 25.4 Lab / Micro Data 01/03/24 12:36 01/03/24 12:36 Labs: Laboratory Results - last 24 hr 01/03/24 12:36: WBC 3.9 L, RBC 3.60 L, Hgb 11.3 L, Hct 34.8 L, MCV 96.7, MCH 31.4, MCHC 32.5, RDW Std Deviation 47.4 H, RDW Coeff of Corbin 13.2, Plt Count 187, MPV 9.7, Immature Gran % (Auto) 0.300, Neut % (Auto) 59.4, Lymph % (Auto) 29.4, [place] % (Auto) 9.6, Eos % (Auto) 0.8, Baso % (Auto) 0.5, Absolute Neuts (auto) 2.3, Absolute Lymphs (auto) 1.16, Nucleated RBC % 0, PT 23.7 H, INR 2.1, Sodium 139, Potassium 4.3, Chloride 106, Carbon Dioxide 29.0, Anion Gap 4 L, BUN 18, Creatinine 0.85, Estim Creat Clear Calc 46.44, Est GFR (MDRD) Af Amer 82, Est GFR (MDRD) Non-Af 67, BUN/Creatinine Ratio 21.2 H, Glucose 100, Calcium 9.3, Total Bilirubin 0.30, AST 18, ALT 12 L, Alkaline Phosphatase 78, Total Protein 6.5, Albumin 3.5, Globulin 3.0, Albumin/Globulin Ratio 1.2 Cardiology Labs/Tests 01/03/24 12:36: WBC 3.9 L, RBC 3.60 L, Hgb 11.3 L, Hct 34.8 L, MCV 96.7, MCH 31.4, MCHC 32.5, Plt Count 187, MPV 9.7, Immature Gran % (Auto) 0.300, Neut % (Auto) 59.4, Lymph % (Auto) 29.4, [place] % (Auto) 9.6, Eos % (Auto) 0.8, Baso % (Auto) 0.5, Absolute Neuts (auto) 2.3, Nucleated RBC % 0, PT 23.7 H, INR 2.1, Sodium 139, Potassium 4.3, Chloride 106, Carbon Dioxide 29.0, Anion Gap 4 L, BUN 18, Creatinine 0.85, Est GFR (MDRD) Af Amer 82, Est GFR (MDRD) Non-Af 67, BUN/Creatinine Ratio 21.2 H, Glucose 100, Calcium 9.3, Total Bilirubin 0.30 Rhythm: EKG: ECHO: Stress Test: Cardiac Cath: PCI: CT Surgery: Holter monitor: EPS: PPM: CXR: Chest CT Scan:
[2024-01-03 17:22] VITALS: BP 140/61; PULSE 66; RESP 17; TEMP 36.6; O2SAT 100
--- NOTE | 2024-01-03 18:14 | PCM.HP.STD ---
HPI - General General Date of Admission: 01/03/24 Date of Service: 01/03/24 Chief Complaint: Atrial fibrillation with poorly controlled rate HPI Narrative ELIZABETH CASTRO, is a 88 F who presents to [facility] as a direct admission to PCU at the request of her tour guide Dr. Martinez. Patient has been intolerant of beta-blockers for control of her atrial fibrillation, cardiology requested the patient be directly admitted to PCU for institution of Tikosyn therapy. At the time my examination on admission patient is alert and oriented x 3 and she is in no distress. On auscultation she appears to be in sinus rhythm-this was confirmed from telemetry. Patient will be placed on Tikosyn, EKGs will be obtained after administration and sent to cardiology for examination. Labs were ordered, patient's CHEM panel was unremarkable, INR was 2.1, and CBC showed a slightly low white blood cell count and hemoglobin of 11.3. FOR[facility]LY [facility] Medical History H/O abdominal pain Difficulty balancing Pure hypercholesterolemia Essential hypertension Family history of colon cancer in mother half-way current use of 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 LETICIA (obstructive sleep apnea) Palpitations Supraventricular tachycardia Chest pain, unspecified GERD (gastroesophageal reflux disease) Family history of premature coronary heart disease Patent foramen ovale Peripheral neuropathy Long-term use of high-risk medication Nonsustained ventricular tachycardia Excessive sleepiness Paroxysmal A-fib Snoring Obstructive sleep apnea Home Medications ?Medication ?Instructions ?Recorded ?Last Taken ?Type latanoprost 0.005 % eye drops 1 drp ophthalmic (eye) QHS eyes 09/12/16 Unknown History levothyroxine 75 mcg tablet 75 mcg PO DAILY hypothyroid 02/27/20 Unknown History warfarin 4 mg tablet 4 mg PO .COMPLEX anticoag #135 tabs 10/09/23 Unknown Rx gabapentin 100 mg capsule 200 mg PO QHS neuropathy 12/12/23 Unknown History lorazepam 0.5 mg tablet 0.5 mg PO QHS sleep 12/12/23 Unknown History timolol maleate 0.5 % eye drops 1 drp ophthalmic (eye) BID eye 12/12/23 Unknown History health vit C 250 mg-vit E 90 mg-zinc 40 1 tab PO BID eye health 12/12/23 Unknown History mg-copper 1 [id number] capsule (PreserVision AREDS-2) doxazosin 2 mg tablet 2 mg PO QHS #30 tabs 12/19/23 Unknown Rx metoprolol tartrate 50 mg tablet 50 mg PO DAILY heart rate #30 tabs 01/02/24 Unknown Rx Allergy/AdvReac Type Severity Reaction Status Date / Time enoxaparin (From Lovenox) Allergy Rash Verified 01/03/24 09:51 Sulfa (Sulfonamide Allergy Hives Verified 01/03/24 09:51 Antibiotics) amlodipine AdvReac Intermediate Marked Verified 01/03/24 09:51 swelling in feet and ankles hydrochlorothiazide AdvReac Intermediate urinary Verified 01/03/24 09:51 incontinence/leaking Family History Mother Cancer Colon Diabetes Sister CAD (coronary artery disease) Heart disease Diabetes Son Kidney disease Surgical History Hx of colonoscopy with polypectomy (~2017) History of radiofrequency ablation procedure for cardiac arrhythmia (~08/17/17) Tooth disorder S/P arthroscopic surgery of left knee History of total right knee replacement S/P excision of lipoma H/O section S/P appendectomy S/P lateral meniscal repair H/O: hysterectomy Social History Smoking Status: Former smoker second hand exposure: No alcohol intake: never substance use type: does not use caffeine: No what type of physical activity do you participate in: other details: stationary bike frequency: daily seatbelt use: always do you feel safe at home: Yes ROS Constitutional Constitutional: Denies anorexia, change in weight, chills, fever(s), night sweats or weakness Eyes Eyes: Denies blurry vision, change in vision, discharge from eye(s) or eye pain Cardiovascular Cardiovascular: Reports palpitations and rapid heart rate; Denies chest pain, claudication or edema Respiratory/Chest Respiratory/Chest: Denies cough, excessive phlegm production, hemoptysis, shortness of breath at rest or shortness of breath with exertion Gastrointestinal Gastrointestinal: Reports nausea; Denies abdominal pain, constipation, diarrhea, hematemesis, hematochezia, melena or vomiting Genitourinary Genitourinary: Denies dysuria, hematuria, urinary frequency, urinary hesitancy, urinary incontinence or urinary urgency Musculoskeletal Musculoskeletal: Denies back pain, joint pain, joint stiffness, joint swelling, myalgias or neck pain Neurologic Neurologic: Denies abnormal gait, abnormal speech, dizziness, focal weakness, headache(s), loss of vision, numbness, other visual disturbances, paresthesias, syncope or tingling Psychiatric Psychiatric: Denies anxiety, cognitive impairment, depression, irritability, mood swings or suicidal ideation Endocrine Endocrinology: Denies change in body appearance, cold intolerance, excessive sweating, heat intolerance, polydipsia or polyuria Hematologic/Lymphatic Hematologic/Lymphatic: Denies none, anemia, easy bleeding, easy bruising or lymphadenopathy Allergic/Immunologic Allergic/Immunologic: Denies rhinitis, urticaria, eczemia or asthma Vital Signs Vital Signs Vital Signs: 01/03/24 11:02 01/03/24 11:15 01/03/24 17:22 Temperature 97.9 F 97.9 F Temperature Source Oral Oral Pulse Rate 54 L 66 Respiratory Rate 17 17 Blood Pressure 128/85 H 140/61 H Blood Pressure Mean 99 87 Blood Pressure Source Monitor Monitor Blood Pressure Position Sitting Semi-Fowlers Blood Pressure Location Left Arm Left Arm Pulse Ox 100 100 Oxygen Delivery Method Room Air Room Air Room Air Weight Weight: 69.3 kg Body Mass Index (BMI) 25.4 Physical Exam Const alert, oriented x3, no apparent distress, average body habitus and healthy appearing General Appearance: cooperative, well kempt and well developed Orientation / Consciousness: awake, oriented to person, oriented to place and oriented to time HEENT normocephalic, head/scalp atraumatic and moist oral mucous membranes Eyes PERRL, EOMs intact bilaterally and conjunctivae normal Neck supple, no JVD, thyroid normal and no carotid bruits General: trachea midline Resp normal respiratory effort, no retractions, no use of accessory muscles and clear to auscultation bilaterally Auscultation: Negative for rales, rhonchi or wheezes Cardio regular rate, regular rhythm, S1 normal heart sound, S2 normal heart sound, no murmurs, no rub and no gallops GI normal to inspection, nondistended, normoactive bowel sounds, soft to palpation, non-tender and non-distended Extremity no clubbing, cyanosis or edema Skin no rashes or lesions noted General Skin Exam: no breakdown Neuro oriented x3, CN's II-XII intact bilaterally, moves all extremities, no focal motor deficits and no sensory deficits noted Sensorium / Orientation: awake and alert Speech: speech normal Psych affect normal Results Lab / Micro Data 01/03/24 12:36 01/03/24 12:36 Labs: Laboratory Results - last 24 hr 01/03/24 12:36: WBC 3.9 L, RBC 3.60 L, Hgb 11.3 L, Hct 34.8 L, MCV 96.7, MCH 31.4, MCHC 32.5, RDW Std Deviation 47.4 H, RDW Coeff of Corbin 13.2, Plt Count 187, MPV 9.7, Immature Gran % (Auto) 0.300, Neut % (Auto) 59.4, Lymph % (Auto) 29.4, Garrett % (Auto) 9.6, Eos % (Auto) 0.8, Baso % (Auto) 0.5, Absolute Neuts (auto) 2.3, Absolute Lymphs (auto) 1.16, Nucleated RBC % 0, PT 23.7 H, INR 2.1, Sodium 139, Potassium 4.3, Chloride 106, Carbon Dioxide 29.0, Anion Gap 4 L, BUN 18, Creatinine 0.85, Estim Creat Clear Calc 46.44, Est GFR (MDRD) Af Amer 82, Est GFR (MDRD) Non-Af 67, BUN/Creatinine Ratio 21.2 H, Glucose 100, Calcium 9.3, Total Bilirubin 0.30, AST 18, ALT 12 L, Alkaline Phosphatase 78, Total Protein 6.5, Albumin 3.5, Globulin 3.0, Albumin/Globulin Ratio 1.2 Assessment & Plan Assessment/Plan (1) Paroxysmal A-fib: PLAN: Plan 1. Paroxysmal A-fib intolerant of [id number] patient was admitted to PCU and started on Tikosyn, she will be seen in consultation by cardiology and EKGs will be monitored. Patient will be monitored on telemetry. #2 essential hypertension-patient will remain on her present medication-she is currently on doxazosin #3 hypothyroidism-patient is on Synthroid #4 long-term use of 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-patient is on warfarin Total clinical time spent by myself addressing the patient's medical issues, reviewing all of her data, and collaborating with patient's care team: 55 minutes Charges/Coding Visit Charges Inpatient E&M: 66157 Init Hosp L2
[2024-01-03 22:26] VITALS: BP 132/63; PULSE 63; RESP 16; TEMP 36.3; O2SAT 98
[2024-01-03] MEDS: Doxazosin 1 MG Tablet 2 MG PO (22:36)
[2024-01-03] MEDS: LORazepam 0.5 MG Tablet PO (22:36)
[2024-01-03] MEDS: Timolol 0.5% 5ML OPTH.BTL 1 DRP OPHTHALMIC (22:36)
[2024-01-03] MEDS: Gabapentin 100 MG Capsule 200 MG PO (22:36)
[2024-01-03] MEDS: Latanoprost 0.005% 1 Bottle 1 DRP OPHTHALMIC (22:38)
--- NOTE | 2024-01-04 00:37 | EKG12_ITS ---
Test Reason : TIKOSYN Blood Pressure : / mmHG Vent. Rate : 050 BPM Atrial Rate : 050 BPM P-R Int : 124 ms QRS Dur : 102 ms QT Int : 462 ms P-R-T Axes : 057 -47 020 degrees QTc Int : 421 ms Sinus bradycardia Left anterior fascicular block Moderate voltage criteria for LVH, may be normal variant ( R in aVL , Jim product ) Septal infarct , age undetermined Abnormal ECG Confirmed by Obey Martinez ([id number]), editor continuity and script TARA BAE ([id number]) on 01/05/2024 6:32:59 AM Referred By: Luis M Cortés Confirmed By:Obey Martinez
[2024-01-04 04:45] VITALS: BP 125/66; PULSE 56; RESP 16; TEMP 36.3; O2SAT 97
[2024-01-04] MEDS: Levothyroxine 75 MCG Tablet PO (06:05)
[2024-01-04] MEDS: 0.9% Saline Lock 10 ML Syringe IV (06:06)
[2024-01-04 06:56] LABS: Anion Gap 4 (5-15); BUN 22 mg/dL (7-18); BUN/Creat Ratio 26.8 RATIO (10-20); Calcium,Total 8.9 mg/dL (8.5-10.1); Chloride 109 mmol/L (98-107); Creatinine, Serum 0.82 mg/dL (0.55-1.02); EST Glomerular Filtration Rate 70 mL/min (>60); Est Glom Filt Rate - Afr Amer 85 mL/min (>60); Estimated Creatinine Clearance 48.14 ml/min; Glucose 86 mg/dL (74-106); Sodium Level 141 mmol/L (136-145)
--- NOTE | 2024-01-04 07:53 | PCM.PN.CARD ---
Subjective Subjective Patient's EKG shows that her QT interval is gone from 420-460. The patient is currently sleeping soundly in the bed and was not awaken. Telemetry continues to show sinus bradycardia. Objective Data Vital Signs: Vital Signs Temp Pulse Resp BP Pulse Ox O2 Del Method 97.4 F L 56 L 16 125/66 H 97 Room Air 01/04/24 04:45 01/04/24 04:45 01/04/24 04:45 01/04/24 04:45 01/04/24 04:45 01/04/24 04:45 Oxygen Delivery Method Room Air Weight: 152 lb 12.485 oz Body Mass Index (BMI) 25.4 Intake & Output: Intake and Output for Last 24 Hours 01/02/24 01/03/24 01/04/24 23:59 23:59 23:59 Intake Total 500 / 500 Balance 500 / 500 Lab / Micro Data Attestation: I reviewed the patient's lab results. 01/03/24 12:36 01/04/24 05:51 Labs: Laboratory Results - last 24 hr 01/03/24 12:36: WBC 3.9 L, RBC 3.60 L, Hgb 11.3 L, Hct 34.8 L, MCV 96.7, MCH 31.4, MCHC 32.5, RDW Std Deviation 47.4 H, RDW Coeff of Corbin 13.2, Plt Count 187, MPV 9.7, Immature Gran % (Auto) 0.300, Neut % (Auto) 59.4, Lymph % (Auto) 29.4, Bradley % (Auto) 9.6, Eos % (Auto) 0.8, Baso % (Auto) 0.5, Absolute Neuts (auto) 2.3, Absolute Lymphs (auto) 1.16, Nucleated RBC % 0, PT 23.7 H, INR 2.1, Sodium 139, Potassium 4.3, Chloride 106, Carbon Dioxide 29.0, Anion Gap 4 L, BUN 18, Creatinine 0.85, Estim Creat Clear Calc 46.44, Est GFR (MDRD) Af Amer 82, Est GFR (MDRD) Non-Af 67, BUN/Creatinine Ratio 21.2 H, Glucose 100, Calcium 9.3, Total Bilirubin 0.30, AST 18, ALT 12 L, Alkaline Phosphatase 78, Total Protein 6.5, Albumin 3.5, Globulin 3.0, Albumin/Globulin Ratio 1.2 01/04/24 05:51: Sodium 141, Potassium 4.0, Chloride 109 H, Carbon Dioxide 28.0, Anion Gap 4 L, BUN 22 H, Creatinine 0.82, Estim Creat Clear Calc 48.14, Est GFR (MDRD) Af Amer 85, Est GFR (MDRD) Non-Af 70, BUN/Creatinine Ratio 26.8 H, Glucose 86, Calcium 8.9 Rhythm Strip Rhythm Strip: Sinus Rhythm Rate: 55 Cardiology Labs/Tests 01/03/24 12:36: WBC 3.9 L, RBC 3.60 L, Hgb 11.3 L, Hct 34.8 L, MCV 96.7, MCH 31.4, MCHC 32.5, Plt Count 187, MPV 9.7, Immature Gran % (Auto) 0.300, Neut % (Auto) 59.4, Lymph % (Auto) 29.4, Bradley % (Auto) 9.6, Eos % (Auto) 0.8, Baso % (Auto) 0.5, Absolute Neuts (auto) 2.3, Nucleated RBC % 0, PT 23.7 H, INR 2.1, Sodium 139, Potassium 4.3, Chloride 106, Carbon Dioxide 29.0, Anion Gap 4 L, BUN 18, Creatinine 0.85, Est GFR (MDRD) Af Amer 82, Est GFR (MDRD) Non-Af 67, BUN/Creatinine Ratio 21.2 H, Glucose 100, Calcium 9.3, Total Bilirubin 0.30 01/04/24 05:51: Sodium 141, Potassium 4.0, Chloride 109 H, Carbon Dioxide 28.0, Anion Gap 4 L, BUN 22 H, Creatinine 0.82, Est GFR (MDRD) Af Amer 85, Est GFR (MDRD) Non-Af 70, BUN/Creatinine Ratio 26.8 H, Glucose 86, Calcium 8.9 Rhythm: EKG: ECHO: Stress Test: Cardiac Cath: PCI: CT Surgery: Holter monitor: EPS: PPM: CXR: Chest CT Scan: EKG Follow-up EKG: Attestation: I personally reviewed and interpreted this EKG as follows: (Heart rate was 50 with a QT interval measured at 460 ms. This was after her second dose of Tikosyn 250 mg.) Physical Exam Const Constitutional Narrative: Patient is sleeping soundly. HEENT normocephalic Neck no JVD Chest inspection of chest normal Resp normal respiratory effort Cardio Rate: bradycardia Rhythm: regular rhythm Assessment & Plan Assessment/Plan (1) Paroxysmal A-fib: PLAN: Patient spontaneously converted to sinus rhythm yesterday. She will be continued on Tikosyn however her QT interval did increase to 460 ms and therefore we will decrease her dose to 125 mg twice daily. Will continue to monitor the QT interval and will plan for tentative discharge tomorrow afternoon. 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 This should be reevaluated next week given the addition of Tikosyn to her medical regimen. (3) Bradycardia: PLAN: Patient has a history of chronic bradycardia resting heart rate usually is in the 50 to 60 bpm range. We will avoid any rate slowing medications she has been intolerant of metoprolol except when used as needed for episodes of paroxysmal atrial fibs. PLAN: Plan 1. Decrease Tikosyn dose to 125 mg twice daily. 2. Repeat EKG per protocol 2 to 3 hours after next dose of Tikosyn. 3. Plan for tentative discharge tomorrow afternoon as long as QT interval remains less than 500 ms. Charges/Coding Visit Charges Inpatient E&M: 14227 Subs Hosp L2
[2024-01-04 10:17] VITALS: BP 115/63; PULSE 66; RESP 17; TEMP 36.4; O2SAT 100
[2024-01-04] MEDS: Dofetilide 125 MCG Capsule PO ×2 (10:20→22:10)
[2024-01-04] MEDS: Timolol 0.5% 5ML OPTH.BTL 1 DRP OPHTHALMIC ×2 (10:21→22:10)
--- NOTE | 2024-01-04 11:08 | CASEMGMT ---
SHELBY JAIME Assessment Face to Face with patient for initial transition planning/care coordination assessment. SHELBY JAIME introduced self and role at [facility], pt voices understanding. Pt is A&Ox4 and is resting comfortably in bed and is calm. Care providers, pharmacy, and demographics verified. Admitting dx: Uncontrolled AFIB LACE Strata: 1 PCP: Luis M Lama Specialists: Dr. Garduno (Medical I D Sales), [facility] Preferred Pharmacy: [facility] Insurance: MCR A/B, [employer] Commercial Prescription Benefit:Yes LNOK: Noe Linden (H), Qasim Davila (Daughter) Living Arrangements: Pt lives with her in a single story condo with a BM but does not use and a flat entrance to enter the home ADLs/IADLs: Ind Transportation: Pt does not drive. Pt drives and the pt denies concerns DME: Cane. BP Monitor. Grab bars. Denies further needs HHC/SNF: Denies Hx or needs Pt?s goal: Home Plan: Home with the continuation of OP treatment through the cardiac rehab program. Pt states that she feels safe with this plan and denies further needs, questions, or concerns. CM to follow for new 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. Brittany Schaffer RN, CM
--- NOTE | 2024-01-04 12:20 | EKG12_ITS ---
Test Reason : TIMED Blood Pressure : / mmHG Vent. Rate : 054 BPM Atrial Rate : 054 BPM P-R Int : 146 ms QRS Dur : 106 ms QT Int : 482 ms P-R-T Axes : 077 -54 033 degrees QTc Int : 457 ms Sinus bradycardia Left axis deviation Minimal voltage criteria for LVH, may be normal variant ( [place] product ) Septal infarct , age undetermined Abnormal ECG When compared with ECG of 03-JAN-2024 16:07, MANUAL COMPARISON REQUIRED, DATA IS UNCONFIRMED Confirmed by Obey Martinez ([id number]), book editor TARA BAE ([id number]) on 01/05/2024 6:35:21 AM Referred By: Luis M Cortés Confirmed By:Obey Martinez
[2024-01-04 17:00] VITALS: BP 134/59; PULSE 52; RESP 16; TEMP 36.7; O2SAT 100
--- NOTE | 2024-01-04 18:15 | PN.HOSP_ITS ---
Reason for Visit Reason for Visit: Diagnoses Paroxysmal atrial fibrillation (01/03/24) Bradycardia, unspecified (01/03/24) jail (current) use of 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s (01/03/24) Subjective Subjective Patient was seen and examined today, she remains on Tikosyn although the dose was lowered today due to lengthening of her QT interval. Objective Data Objective Data Vital Signs: Vital Signs Temp Pulse Resp BP Pulse Ox O2 Del Method 98.0 F 52 L 16 134/59 H 100 Room Air 01/04/24 17:00 01/04/24 17:00 01/04/24 17:00 01/04/24 17:00 01/04/24 17:00 01/04/24 17:00 Oxygen Delivery Method Room Air Weight: 69.3 kg Body Mass Index (BMI) 25.4 Intake & Output: Intake and Output for Last 24 Hours 01/02/24 01/03/24 01/04/24 23:59 23:59 23:59 Intake Total 500 / 500 Balance 500 / 500 Lab / Micro Data 01/03/24 12:36 01/04/24 05:51 Labs: Laboratory Results - last 24 hr 01/04/24 05:51: Sodium 141, Potassium 4.0, Chloride 109 H, Carbon Dioxide 28.0, Anion Gap 4 L, BUN 22 H, Creatinine 0.82, Estim Creat Clear Calc 48.14, Est GFR (MDRD) Af Amer 85, Est GFR (MDRD) Non-Af 70, BUN/Creatinine Ratio 26.8 H, Glucose 86, Calcium 8.9 Rhythm Strip Rhythm Strip: Sinus Rhythm Rate: 55 Physical Exam Const alert, oriented x3, no apparent distress, average body habitus and healthy appearing General Appearance: cooperative, well kempt and well developed Orientation / Consciousness: awake, oriented to person, oriented to place and oriented to time HEENT normocephalic, head/scalp atraumatic and moist oral mucous membranes Eyes PERRL, EOMs intact bilaterally and conjunctivae normal Neck supple, no JVD and thyroid normal General: trachea midline Resp normal respiratory effort, no retractions, no use of accessory muscles and clear to auscultation bilaterally Auscultation: Negative for rales, rhonchi or wheezes Cardio regular rate, regular rhythm, S1 normal heart sound, S2 normal heart sound, no murmurs, no rub and no gallops GI normal to inspection, nondistended, normoactive bowel sounds, soft to palpation, non-tender and non-distended Extremity no clubbing, cyanosis or edema Skin no rashes or lesions noted General Skin Exam: no breakdown Neuro oriented x3, CN's II-XII intact bilaterally, moves all extremities, no focal motor deficits and no sensory deficits noted Sensorium / Orientation: awake and alert Speech: speech normal Psych affect normal Assessment & Plan Assessment/Plan (1) Paroxysmal A-fib: PLAN: Plan 1. Paroxysmal A-fib intolerant of [id number] remains on Tikosyn 250 mg twice a day, EKGs will be monitored by cardiology #2 essential hypertension-patient will remain on her present medication-she is currently on doxazosin #3 hypothyroidism-patient is on Synthroid #4 long-term use of 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-patient is on warfarin Total clinical time spent by myself addressing the patient's medical issues, reviewing all of her data, and collaborating with patient's care team: 35 minutes Charges/Coding Visit Charges Inpatient E&M: 00742 Subs Hosp L2
[2024-01-04 21:00] VITALS: BP 147/66; PULSE 58; RESP 18; TEMP 36.3; O2SAT 99
[2024-01-04] MEDS: LORazepam 0.5 MG Tablet PO (22:09)
[2024-01-04] MEDS: Doxazosin 1 MG Tablet 2 MG PO (22:09)
[2024-01-04] MEDS: Gabapentin 100 MG Capsule 200 MG PO (22:09)
[2024-01-04] MEDS: Latanoprost 0.005% 1 Bottle 1 DRP OPHTHALMIC (22:10)
--- NOTE | 2024-01-05 00:15 | EKG12_ITS ---
Test Reason : TIMED Blood Pressure : / mmHG Vent. Rate : 054 BPM Atrial Rate : 054 BPM P-R Int : 156 ms QRS Dur : 102 ms QT Int : 460 ms P-R-T Axes : 083 -54 036 degrees QTc Int : 436 ms Sinus bradycardia Pulmonary disease pattern Left anterior fascicular block Minimal voltage criteria for LVH, may be normal variant ( Jim product ) Septal infarct , age undetermined Abnormal ECG When compared with ECG of 04-JAN-2024 12:07, MANUAL COMPARISON REQUIRED, DATA IS UNCONFIRMED Confirmed by SCOT MINOR ([id number]), supervising editor trailer JAIME MARTIN ([id number]) on 01/06/2024 6:06:50 AM Referred By: Luis M Cortés Confirmed By:SCOT MINOR
[2024-01-05 03:15] VITALS: BP 103/60; PULSE 58; RESP 18; TEMP 36.4; O2SAT 99
[2024-01-05] MEDS: Levothyroxine 75 MCG Tablet PO (05:24)
--- NOTE | 2024-01-05 08:49 | PN.CARD_ITS ---
Subjective Subjective Patient is resting comfortably. All of her nausea and symptoms on admission have resolved. She is tolerating the Tikosyn without incident. The patient remains on Coumadin with an INR of 2.1. Objective Data Vital Signs: Vital Signs Temp Pulse Resp BP Pulse Ox O2 Del Method 97.6 F L 58 L 18 103/60 99 Room Air 01/05/24 03:15 01/05/24 03:15 01/05/24 03:15 01/05/24 03:15 01/05/24 03:15 01/05/24 03:58 Oxygen Delivery Method Room Air Weight: 152 lb 12.485 oz Body Mass Index (BMI) 25.4 Intake & Output: Intake and Output for Last 24 Hours 01/03/24 01/04/24 01/05/24 23:59 23:59 23:59 Intake Total 500 / 850 500 / 500 Balance 500 / 850 500 / 500 Lab / Micro Data Attestation: I reviewed the patient's lab results. 01/03/24 12:36 01/04/24 05:51 Rhythm Strip Rhythm Strip: Sinus Rhythm Rate: 55 Cardiology Labs/Tests Rhythm: EKG: ECHO: Stress Test: Cardiac Cath: PCI: CT Surgery: Holter monitor: EPS: PPM: CXR: Chest CT Scan: EKG Follow-up EKG: Attestation: I personally reviewed and interpreted this EKG as follows: (Sinus bradycardia at 52 bpm. QT interval is 440 ms.) Physical Exam Const alert and oriented x3 HEENT normocephalic Neck no JVD Chest inspection of chest normal Resp normal respiratory effort Cardio regular rate Rate: bradycardia Rhythm: regular rhythm Extremity no pedal edema Skin no rashes or lesions noted Neuro Neuro Narrative: Alert and oriented x 3 Psych mental status grossly normal Assessment & Plan Assessment/Plan (1) Bradycardia: PLAN: Patient is resting heart rate in her home environment on no rate modulating drugs runs from 45 to 60 bpm. She is averaging around 50 to 55 bpm here in the hospital. The patient is tolerating Tikosyn. (2) Paroxysmal A-fib: PLAN: Patient remains in sinus bradycardia she is tolerating Tikosyn 125 mg twice daily with a QT interval of 440 ms last night. She will get 1 more dose of Tikosyn this morning and a repeat EKG if the QT interval is less than 500 ms the patient can be discharged to home. PLAN: Plan 1. Repeat EKG on Monday or MondayJanuary 08 or in the [facility] office. 2. Obtain INR January 08 or . Target 2?3. 3. The patient was instructed to call the [facility] office should she start to have side effects or questions about her Tikosyn dosing. 4. The patient will be discharged on Tikosyn 125 mcg twice daily. She should continue her other home meds other than metoprolol. 5. Patient was instructed to use metoprolol to tartrate 50 mg as a as needed dosing only if her heart rate goes up and is documented on her [employer] mobile to be atrial fibs. 6. Should the patient develop atrial fibs documented on her [email or web address] mobile, the patient was instructed to call the office for follow-up appointment. 7. The patient should be able to be discharged to home as long as the QT interval is less than 500 ms after this morning dose of Tikosyn Charges/Coding Visit Charges Inpatient E&M: 47740 Subs Hosp L2
[2024-01-05 09:56] VITALS: BP 127/48; PULSE 68; RESP 17; TEMP 36.4; O2SAT 100
[2024-01-05] MEDS: Dofetilide 125 MCG Capsule PO (10:00)
[2024-01-05] MEDS: Timolol 0.5% 5ML OPTH.BTL 1 DRP OPHTHALMIC (10:01)
--- NOTE | 2024-01-05 12:00 | EKG12_ITS ---
Test Reason : Blood Pressure : / mmHG Vent. Rate : 053 BPM Atrial Rate : 053 BPM P-R Int : 132 ms QRS Dur : 102 ms QT Int : 444 ms P-R-T Axes : 089 -46 032 degrees QTc Int : 416 ms Sinus bradycardia Left anterior fascicular block Moderate voltage criteria for LVH, may be normal variant ( R in aVL , Jim product ) Anteroseptal infarct , age undetermined Abnormal ECG When compared with ECG of 05-JAN-2024 01:04, MANUAL COMPARISON REQUIRED, DATA IS UNCONFIRMED Confirmed by SCOT MINOR ([id number]), slot editor JAIME MARTIN ([id number]) on 01/06/2024 6:06:57 AM Referred By: uLis M Cortés Confirmed By:SCOT MINOR
--- NOTE | 2024-01-05 12:33 | PCM.DC ---
Discharge Instructions Diet Discharge Diet: No restrictions Activity Discharge Activity: Return to Normal Activity Weight Bearing Status: Full weight bearing Follow Up Care Test Results: Test results from this visit will be discussed in further detail at your follow-up appointment, if applicable. Discharge Plan Admission Admit Date/Time: 01/03/24 11:34 Primary Reason for Your Visit: a-fib with bradycardia Attending Provider: Luis M Cortés Primary Care Provider: Luis M Lama Consulting Providers: Obey Martinez Instructions Additional Instructions / Restrictions: You may need to use metoprolol as before if heart rate increases and is atrial fibrillation Discharge Orders/Prescriptions Prescriptions: New dofetilide 125 mcg Capsule 125 mcg PO Q12 Qty: 60 0RF Continued PreserVision AREDS-2 250-90-40-1 mg capsule 1 tab PO BID lorazepam 0.5 mg tablet 0.5 mg PO QHS Patient Comments: [NO ORIGINAL SIG] gabapentin 100 mg capsule 200 mg PO QHS Patient Comments: [NO ORIGINAL SIG] timolol maleate 0.5 % drops 1 drp ophthalmic (eye) BID Patient Comments: [NO ORIGINAL SIG] latanoprost 1 DROP bottle 1 drp ophthalmic (eye) QHS levothyroxine 75 mcg tablet 75 mcg PO DAILY Rx Instructions: 1/2 tab on monday warfarin 4 mg tablet 4 mg PO .COMPLEX Qty: 135 3RF Protocol: Dose Management Condition: Monday Dose/Route: 4 mg Instruction: 1 x 4 mg tablet Condition: Monday Dose/Route: 4 mg Instruction: 1 x 4 mg tablet Condition: Monday Dose/Route: 4 mg Instruction: 1 x 4 mg tablet Condition: Monday Dose/Route: 4 mg Instruction: 1 x 4 mg tablet Condition: Dose/Route: 4 mg Instruction: 1 x 4 mg tablet Condition: Monday Dose/Route: 4 mg Instruction: 1 x 4 mg tablet Condition: Monday Dose/Route: 4 mg Instruction: 1 x 4 mg tablet Protocol Text: Adjustment Start Date: Monday12/25/23 INR Value: 2.3 INR Date: 12/25/23 Recheck Date: 01/24/24 Patient Comments: Pt taking 4mg daily Rx Instructions: 2mg Mon/Mon, 6mg , 4mg Mon//Mon/Sat, or as discussed for a 90 day supply doxazosin 2 mg tablet 2 mg PO QHS Qty: 30 3RF Discontinued metoprolol tartrate 50 mg tablet 50 mg PO DAILY Qty: 30 1RF Referrals / Follow Up: Obey Martinez MD [Med Staff - Active Staff] - See Referral Note (Next Monday or Monday-you will need an EKG at the office, schedule a follow-up appointment with at that time) Luis M Lama DO [Primary Care Provider] - Disposition Disposition (needs filled in before D/C Order can be placed): Home, Self Care
--- NOTE | 2024-01-05 12:38 | PCM.DC.SUM ---
Providers Date of Admission: 01/03/24 Date of Discharge: 01/05/24 Primary Care Physician: Dr. Luis M Lama, Consultations 01/03/24 12:18 Consult: Cardiology Routine Consulting Provider: Obey Martinez Reason for Consult: A-FIB EMERGENT Consult: No MD Notified: Yes Date Notified: 01/03/24 Time Notified: 11:51 Method of Notification: Verbal Reason For Visit: UNCONTROLLED AFIB Diagnosis Discharge Diagnosis (1) Bradycardia: Status: Acute Code(s): R00.1 - Bradycardia, unspecified (2) Paroxysmal A-fib: Status: Chronic Code(s): I48.0 - Paroxysmal atrial fibrillation Plan 1. Paroxysmal A-fib intolerant of sybj-pctokkgu-gfodlcm remains on Tikosyn 250 mg twice a day, EKGs will be monitored by cardiology #2 essential hypertension-patient will remain on her present medication-she is currently on doxazosin #3 hypothyroidism-patient is on Synthroid #4 long-term use of 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-patient is on warfarin Total clinical time spent by myself addressing the patient's medical issues, reviewing all of her data, and collaborating with patient's care team: 35 minutes Medications at Discharge Home Medications latanoprost 0.005 % eye drops 1 drp ophthalmic (eye) QHS eyes 09/12/16 levothyroxine 75 mcg tablet 75 mcg PO DAILY hypothyroid 02/27/20 warfarin 4 mg tablet 4 mg PO .COMPLEX anticoag #135 tabs 10/09/23 gabapentin 100 mg capsule 200 mg PO QHS neuropathy 12/12/23 lorazepam 0.5 mg tablet 0.5 mg PO QHS sleep 12/12/23 timolol maleate 0.5 % eye drops 1 drp ophthalmic (eye) BID eye health 12/12/23 vit C 250 mg-vit E 90 mg-zinc 40 mg-copper 1 [id number]-[id number] capsule (PreserVision AREDS-2) 1 tab PO BID eye health 12/12/23 doxazosin 2 mg tablet 2 mg PO QHS #30 tabs 12/19/23 dofetilide 125 mcg capsule 125 mcg PO Q12 #60 caps 01/05/24 Hospital Course Operations None Procedures None Summary of Care Provided Minutes Spent on Discharge: 31 Hospital Course: This 88-year-old white female was directly admitted to PCU from Dr. Shoaib Martinez' office due to bradycardia and uncontrolled A-fib. Patient was intolerant to beta-blockers and cardiology recommended institution of Tikosyn which required hospitalization. Patient was admitted to PCU, she was monitored and serial EKGs were obtained after administration of Tikosyn, her dose was finally reduced to 125 mg twice a day at the time of discharge. Patient had no untoward events during her hospitalization, she remained in sinus bradycardia for most of her hospitalization. On 01/05/2024, patient was seen and examined: On examination she appeared in good health and spirits, she does not appear to be in any distress. Vital signs as documented. Skin warm and dry and without overt rashes. Neck without JVD, thyroid appears normal, trachea is midline, neck is supple. Lungs clear, normal air movement was noted. Heart exam notable for regular rhythm, normal sounds and absence of murmurs, rubs or gallops. Abdomen unremarkable and without evidence of organomegaly, masses, or abdominal aortic enlargement, bowel sounds are present in all 4 quadrants, no abdominal tenderness was noted. Extremities nonedematous, no cyanosis was noted, no clubbing was noted. Neuro: Cranial nerves II through XII are grossly intact, no focal motor deficits were noted, sensation to light touch and pinprick is intact, motor exam 5/5 throughout. Psych: Patient is alert and oriented x3, she does not appear anxious or depressed, she does not appear agitated. Patient was discharged home in stable condition on 01/05/2024. Weight / BMI Weight Weight: 69.3 kg Body Mass Index (BMI) 25.4 ABG / Lab / Microbiology Data 01/03/24 12:36 01/04/24 05:51 D/C Instructions Discharge Diet: No restrictions Weight Bearing Status: Full weight bearing Meaningful Use Info Meaningful Use Meaningful Use Diagnoses (Choose all that apply): None applicable Ischemic Stroke Statin Dosing Therapy Reference: STATIN DOSE THERAPY REFERENCE: * Patients > 75 years receive moderate or high dose statin therapy. * Patients 75 years or YOUNGER should receive HIGH intensity statin dose unless contraindicated. You will be required to document reason for non-treatment if statin daily dose does not meet guidelines. HIGH DOSE STATIN THERAPY DAILY Atorvastatin > than or = to 40 mg Rosuvastatin > than or = to 20 mg Amlodipine + Atorvastatin > than or = to 2.5/40 mg Ezetimibe + Simvastatin 10/80 mg Simvastatin 80mg Discharge Plan Admission Admit Date/Time: 01/03/24 11:34 Primary Reason for Your Visit: a-fib with bradycardia Attending Provider: Luis M Cortés Primary Care Provider: Luis M Lama Consulting Providers: Obey Martinez Instructions Additional Instructions / Restrictions: You may need to use metoprolol as before if heart rate increases and is atrial fibrillation Discharge Orders/Prescriptions Prescriptions: New dofetilide 125 mcg Capsule 125 mcg PO Q12 Qty: 60 0RF Continued PreserVision AREDS-2 250-90-40-1 mg capsule 1 tab PO BID lorazepam 0.5 mg tablet 0.5 mg PO QHS Patient Comments: [NO ORIGINAL SIG] gabapentin 100 mg capsule 200 mg PO QHS Patient Comments: [NO ORIGINAL SIG] timolol maleate 0.5 % drops 1 drp ophthalmic (eye) BID Patient Comments: [NO ORIGINAL SIG] latanoprost 1 DROP bottle 1 drp ophthalmic (eye) QHS levothyroxine 75 mcg tablet 75 mcg PO DAILY Rx Instructions: 1/2 tab on monday warfarin 4 mg tablet 4 mg PO .COMPLEX Qty: 135 3RF Protocol: Dose Management Condition: Monday Dose/Route: 4 mg Instruction: 1 x 4 mg tablet Condition: Monday Dose/Route: 4 mg Instruction: 1 x 4 mg tablet Condition: Monday Dose/Route: 4 mg Instruction: 1 x 4 mg tablet Condition: Monday Dose/Route: 4 mg Instruction: 1 x 4 mg tablet Condition: Dose/Route: 4 mg Instruction: 1 x 4 mg tablet Condition: Monday Dose/Route: 4 mg Instruction: 1 x 4 mg tablet Condition: Monday Dose/Route: 4 mg Instruction: 1 x 4 mg tablet Protocol Text: Adjustment Start Date: Monday12/25/23 INR Value: 2.3 INR Date: 12/25/23 Recheck Date: 01/24/24 Patient Comments: Pt taking 4mg daily Rx Instructions: 2mg Mon/Mon, 6mg , 4mg Mon//Mon/Sat, or as discussed for a 90 day supply doxazosin 2 mg tablet 2 mg PO QHS Qty: 30 3RF Discontinued metoprolol tartrate 50 mg tablet 50 mg PO DAILY Qty: 30 1RF Referrals / Follow Up: Obey Martinez MD [Med Staff - Active Staff] - See Referral Note (Next Monday or Monday-you will need an EKG at the office, schedule a follow-up appointment with at that time) Luis M Lama DO [Primary Care Provider] - Disposition Disposition (needs filled in before D/C Order can be placed): Home, Self Care Charges/Coding Visit Charges Inpatient E&M: 88513 Disch Hosp >30min
--- NOTE | 2024-01-05 12:57 | CASEMGMT ---
Pt is being prescribed Tikosyn. TC to [facility] and [facility] states that the medication will only cost 31$ and that they plan on bringing the Rx to the pt room.
== END 2024-01-05 13:52 | disposition home or self-care (01) | DRG 950 ==
PROVIDERS: Admitting Provider Internal Medicine; PCP Family Medicine; Referring Provider Internal Medicine; Visit Provider Internal Medicine
DX: Z51.81 Encounter for therapeutic drug level monitoring (principal); E03.9 Hypothyroidism, unspecified; I10 Essential (primary) hypertension; I48.0 Paroxysmal atrial fibrillation; E78.00 Pure hypercholesterolemia, unspecified; R00.1 Bradycardia, unspecified; G47.33 Obstructive sleep apnea (adult) (pediatric); R94.31 Abnormal electrocardiogram [ECG] [EKG]; Z79.01 Long term (current) use of 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s; Z79.890 Hormone replacement therapy; Z79.899 Other long term (current) drug therapy; Z87.891 Personal history of nicotine dependence
CPT/HCPCS: 36415; 80048; 80053; 85025; 85610; 93005; A4216

== ENCOUNTER 2024-01-10 08:42 | Outpatient (RCR) | payer MEDICARE, OTHER, SELFPAY ==
[2024-01-10 10:01] LABS: International Normalized Ratio 2.2; Prothrombin Time (Protime)PT. 24.2 SECONDS (11.7-14.9)
[2024-01-10 12:58] LABS: Thyroid Stim Hormone (TSH) 0.899 uIU/mL (0.358-3.740)
== END 2024-01-10 18:00 | disposition home or self-care (01) ==
LOC: LAB 08:42
PROVIDERS: Physician Assistant Medical; PCP Family Medicine; Referring Provider Nurse Practitioner Gerontology; Visit Provider Nurse Practitioner Gerontology
DX: I48.0 Paroxysmal atrial fibrillation (principal); R00.1 Bradycardia, unspecified; Z79.01 Long term (current) use of 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s
CPT/HCPCS: 36415; 84439; 84443; 85610

== ENCOUNTER 2024-03-05 09:14 | Outpatient (RCR) | payer MEDICARE, OTHER, SELFPAY ==
[2024-02-07 12:14] LABS: Prothrombin Time (Protime)PT. 22.8 SECONDS (11.7-14.9)
[2024-03-05 10:29] LABS: International Normalized Ratio 2.9; Prothrombin Time (Protime)PT. 29.9 SECONDS (11.7-14.9)
== END 2024-03-05 18:00 | disposition home or self-care (01) ==
LOC: MTLAB 09:14
PROVIDERS: PCP Family Medicine; Referring Provider Nurse Practitioner Gerontology; Visit Provider Nurse Practitioner Gerontology
DX: I48.0 Paroxysmal atrial fibrillation (principal); Z79.01 Long term (current) use of 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s
CPT/HCPCS: 36415; 85610

== ENCOUNTER → 2024-03-22 | Outpatient (CLI) | payer MEDICARE, OTHER, SELFPAY | END | disposition home or self-care (01) | LOC: LAB.FUTURE 08:00 | PROVIDERS: PCP Family Medicine; Referring Provider Family Medicine; Visit Provider Family Medicine | DX: I10 Essential (primary) hypertension (principal); E78.5 Hyperlipidemia, unspecified; E03.9 Hypothyroidism, unspecified; D64.9 Anemia, unspecified ==

== ENCOUNTER 2024-03-27 08:50 | Outpatient (RCR) | payer MEDICARE, OTHER, SELFPAY ==
[2024-03-27 10:24] LABS: Absolute Lymphocyte Count 1.53 X10^3/uL (0.83-4.51); Absolute Neutrophil Count 2.3 X10^3/uL (2.0-7.7); Basophil# 0.02 X10^3/uL; Basophil% 0.5 % (0-1); Eosinophil# 0.03 X10^3/uL; Eosinophils% 0.7 % (0-5); Hematocrit 36.7 % (37-47); Lymphocyte # 1.53 X10^3/ul (0.83-4.51); Lymphocyte % 36.3 % (19-41); Mean Corp Hgb Conc 32.7 g/dL (32-36); Mean Corpuscular Hgb 31.4 pg (27.0-32.0); Mean Corpuscular Volume 96.1 fL (81-99); Mean Platelet Vol. 10.5 fl (6.2-12.0); Monocyte# 0.34 X10^3/uL; Monocyte% 8.1 % (0-10); NRBC Flagged by Analyzer 0 % (0-5); Neutrophil # 2.28 X10^3/uL (2.7-7.7); Neutrophil % 54.2 % (47-70); Platelet Count 202 K/mm3 (150-450); RBC Distribution Width SD 45.7 fl (35.1-43.9); Red Blood Count 3.82 M/mm3 (4.2-5.4); White Blood Count 4.2 K/mm3 (4.4-11.0)
[2024-03-27 10:34] LABS: International Normalized Ratio 2.3; Prothrombin Time (Protime)PT. 25.3 SECONDS (11.7-14.9)
[2024-03-27 10:46] LABS: ALB/GLOB Ratio 1.3 RATIO (0.9-2.4); AST(SGOT) 19 U/L (15-37); Alanine Aminotransfer ALT/SGPT 20 U/L (13-56); Albumin, Serum 3.7 g/dL (3.2-5.0); Alkaline Phosphatase 71 U/L (45-117); Anion Gap 1 (5-15); BUN 16 mg/dL (7-18); BUN/Creat Ratio 19.2 RATIO (10-20); Calcium,Total 9.3 mg/dL (8.5-10.1); Chloride 106 mmol/L (98-107); Cholesterol 199 mg/dL (200); Creatinine, Serum 0.83 mg/dL (0.55-1.02); EST Glomerular Filtration Rate 69 mL/min (>60); Est Glom Filt Rate - Afr Amer 83 mL/min (>60); Globulin 2.9 g/dL (2.2-4.2); Glucose 86 mg/dL (74-106); High Density Lipoprotein 67 mg/dL; Potassium 4.5 mmol/L (3.5-5.1); Protein, Total 6.6 g/dL (6.4-8.2); Sodium Level 138 mmol/L (136-145); Triglycerides 91 mg/dL; Very Low Density Lipoprotein 18 mg/dL (5-40)
== END 2024-04-06 18:00 | disposition home or self-care (01) ==
LOC: MTLAB 08:50
PROVIDERS: PCP Family Medicine; Referring Provider Nurse Practitioner Gerontology; Visit Provider Nurse Practitioner Gerontology
DX: I48.0 Paroxysmal atrial fibrillation (principal); I10 Essential (primary) hypertension
CPT/HCPCS: 36415; 80053; 80061; 84439; 84443; 85025; 85610

== ENCOUNTER 2024-04-23 09:27 | Outpatient (RCR) | payer MEDICARE, OTHER, SELFPAY ==
[2024-04-23 12:49] LABS: International Normalized Ratio 2.9
== END 2024-04-23 18:00 | disposition home or self-care (01) ==
LOC: MTLAB 09:27
PROVIDERS: PCP Family Medicine; Referring Provider Nurse Practitioner Gerontology; Visit Provider Nurse Practitioner Gerontology
DX: I48.0 Paroxysmal atrial fibrillation (principal)
CPT/HCPCS: 36415; 85610

== ENCOUNTER → 2024-05-20 | Outpatient (CLI) | payer MEDICARE, OTHER, SELFPAY ==
[2024-05-20 15:49] LABS: Color, Urine Yellow (Yellow); Glucose, Dipstick Normal (Normal); Ketone-Dipstick Negative (Negative); Leukocyte Esterase-Dipstick 500 /ul (Negative); Nitrite-Dipstick Negative (Negative); Occult Blood-Urine 10 /ul (Negative); Protein-Dipstick Negative (Negative); Urine Bilirubin Dipstick Negative (Negative); Urine Clarity Clear (Clear); Urine Urobilinogen Normal (Normal)
[2024-05-20 16:39] LABS: Hemoglobin A1c 5.5 % (3.8-5.6)
[2024-05-20 17:36] LABS: International Normalized Ratio 2.6; Prothrombin Time (Protime)PT. 28.1 SECONDS (11.7-14.9)
[2024-05-22 12:08] LABS: C-Peptide 2.6 ng/mL (1.1-4.4); Insulin Level 4.8 uIU/mL (2.6-24.9)
[2024-05-22 13:07] LABS: Prealbumin 24 mg/dL (9-32)
== END | disposition home or self-care (01) ==
LOC: BFHLAB 11:46 → MTLAB 12:36
PROVIDERS: PCP Family Medicine; Referring Provider Family Medicine; Visit Provider Family Medicine
DX: N39.0 Urinary tract infection, site not specified (principal); E16.2 Hypoglycemia, unspecified; R63.4 Abnormal weight loss; R30.0 Dysuria; Z79.01 Long term (current) use of 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s; E03.9 Hypothyroidism, unspecified

== ENCOUNTER → 2024-09-06 | Outpatient (CLI) | payer MEDICARE, OTHER, SELFPAY ==
--- NOTE | 2024-09-06 17:20 | CT_ITS ---
PROCEDURE: BRAIN/HEAD W/WO CONTRAST 09/06/2024 REASON FOR EXAM: MEMORY IMPAIRMENT TECHNIQUE: Head CT before and following intravenous contrast. Coronal and Sagittal reconstruction series were provided. CONTRAST: Omnipaque 350 VOLUME: 100 mL Gauge IV One or more dose reduction techniques were used (e.g., Automated exposure control, adjustment of the mA and/or kV according to patient size, use of iterative reconstruction technique). COMPARISON: CT brain 10/22/2022 FINDINGS: Acute findings: No evidence of an acute infarct. No intracranial hemorrhage. Brain: Low density in the periventricular white matter suggests mild chronic small vessel ischemic changes. Bilateral basal ganglia mineralization, likely age related. Postcontrast images: No suspicious intracranial mass or abnormal focus of enhancement. CSF Spaces: Moderate generalized cerebral atrophy Sinuses/Mastoids: Mild mucosal thickening at the paranasal sinuses Bones: Calvarium is within normal limits. Bilateral lens replacement. CT/Brain/Head W/WO Contrast IMPRESSION: No acute intracranial abnormality No suspicious intracranial mass, abnormal parenchymal or leptomeningeal enhance ment. Reading Location: [facility]
== END | disposition home or self-care (01) ==
LOC: CT 17:19
PROVIDERS: PCP Family Medicine; Referring Provider Family Medicine; Visit Provider Family Medicine
DX: R41.3 Other amnesia (principal); R51.9 Headache, unspecified; H53.2 Diplopia
CPT/HCPCS: 70470; Q9967; A4216

== ENCOUNTER 2024-10-19 08:21 | Emergency (ER) | payer MEDICARE, OTHER, SELFPAY ==
[2024-10-19] VITALS (7 sets, daily range): BP systolic 123–143; BP diastolic 69–86; PULSE 53–79; RESP 16–95; TEMP 36.7; O2SAT 22–100; BMI 25.8
--- NOTE | 2024-10-19 07:53 | EKG12_ITS ---
Test Reason : CP Blood Pressure : */* mmHG Vent. Rate : 73 BPM Atrial Rate : * BPM P-R Int : * ms QRS Dur : 108 ms QT Int : 358 ms P-R-T Axes : * -47 69 degrees QTcB Int : 394 ms Atrial fibrillation Left anterior fascicular block Moderate voltage criteria for LVH, may be normal variant ( R in aVL , [place] product ) Septal infarct , age undetermined Abnormal ECG Confirmed by ALEK ROCHE, ALICIA ([id number]), purchase request editor JAIME MARTIN ([id number]) on 10/22/2024 8:22:15 AM Referred By: LES Confirmed By: ALICIA GASTON MD
--- NOTE | 2024-10-19 08:37 | EKG12_ITS ---
Test Reason : RHYTHM CHANGE Blood Pressure : */* mmHG Vent. Rate : 50 BPM Atrial Rate : 50 BPM P-R Int : 140 ms QRS Dur : 96 ms QT Int : 438 ms P-R-T Axes : 68 -49 52 degrees QTcB Int : 399 ms Sinus bradycardia Left anterior fascicular block Moderate voltage criteria for LVH, may be normal variant ( R in aVL , Jim product ) Septal infarct , age undetermined Abnormal ECG Confirmed by ALEK ROCHE, ALICIA ([id number]), assignment editor JAIME MARTIN ([id number]) on 10/22/2024 8:20:46 AM Referred By: Confirmed By: ALICIA GASTON MD
--- NOTE | 2024-10-19 08:37 | EX.ED.DYSGE1 ---
HPI History of Present Illness Chief Complaint: Chest Pain Narrative Narrative: 89-year-old female presents with her family with atrial fibrillation and chest discomfort, not feeling right. She has history of atrial fibrillation and is dealt with it for years. She had an ablation in 2018, but still went into atrial fibrillation. She had been started on Tikosyn remotely, and had been admitted, but she ended up cardioverting herself. She was told by her projection welding machine operator, Dr. Martinez, about a year to a year and a half ago that if she went into atrial fibrillation again she should take Tikosyn 125 mg, and contact him. At around 6 AM, 2-1/2 hours ago, she awoke with not feeling right and discomfort in her chest. She denies any nausea or vomiting, no diaphoresis. Her Curoverse mobile was not working so her daughter came over and stated that it said possible atrial fibrillation that was rate controlled. They called Dr. Arshad at [place] [facility] after she had taken Tikosyn and was directed to come to the emergency department. 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 LETICIA (obstructive sleep apnea) Palpitations Supraventricular tachycardia Chest pain, unspecified GERD (gastroesophageal reflux disease) Family history of premature coronary heart disease Patent foramen ovale Peripheral neuropathy Long-term use of high-risk medication Nonsustained ventricular tachycardia Excessive sleepiness Paroxysmal A-fib Snoring Obstructive sleep apnea Home Medications ?Medication ?Instructions ?Recorded ?Last Taken ?Type latanoprost 0.005 % eye drops 1 drp ophthalmic (eye) QHS eyes 09/12/16 10/18/24 History levothyroxine 75 mcg tablet 75 mcg PO DAILY hypothyroid 02/27/20 10/19/24 History timolol maleate 0.5 % eye drops 1 drp ophthalmic (eye) BID eye 12/12/23 10/19/24 History health vit C 250 mg-vit E 90 mg-zinc 40 1 tab PO BID eye health 12/12/23 10/19/24 History mg-copper 1 el-zdffmz-drzzqy capsule (PreserVision AREDS-2) losartan 25 mg tablet 25 mg PO BID #180 tabs 01/30/24 10/19/24 Rx gabapentin 100 mg capsule 100 mg PO BID neuropathy 07/04/24 10/19/24 History lorazepam 0.5 mg tablet 0.5 mg PO BID sleep 07/04/24 10/19/24 History chlorhexidine gluconate 0.12 % 15 ml PO BID 10/19/24 10/18/24 History mouthwash gabapentin 400 mg capsule 400 mg PO QHS 10/19/24 10/18/24 History pantoprazole 20 mg tablet,delayed 20 mg PO DAILY 10/19/24 10/18/24 History release warfarin 4 mg tablet 4 mg PO DAILY anticoag 10/19/24 10/18/24 History Allergy/AdvReac Type Severity Reaction Status Date / Time enoxaparin (From Lovenox) Allergy Rash Verified 02/21/24 11:16 Sulfa (Sulfonamide Allergy Hives Verified 02/21/24 11:16 Antibiotics) Family History Mother Cancer Colon Diabetes Sister CAD (coronary artery disease) Heart disease Diabetes Son Kidney disease Surgical History Hx of colonoscopy with polypectomy (~2017) History of radiofrequency ablation procedure for cardiac arrhythmia (~08/17/17) Tooth disorder S/P arthroscopic surgery of left knee History of total right knee replacement S/P excision of lipoma H/O section S/P appendectomy S/P lateral meniscal repair H/O: hysterectomy Social History Smoking Status: Former smoker second hand exposure: No alcohol intake: never substance use type: does not use caffeine: No what type of physical activity do you participate in: other details: stationary bike frequency: daily seatbelt use: always do you feel safe at home: Yes ROS ROS ED ROS Narrative Review of systems positive for chest discomfort and feeling correct. Reported atrial fibrillation that was rate controlled. No nausea or vomiting, no shortness of breath, no leg swelling, no other symptoms. No exacerbating or alleviating factors. EXAM Physical Exam Narrative Exam Narrative: Afebrile. Vital signs noted. Nontoxic-appearing. Cardiovascular examination reveals an irregularly irregular rhythm, but a normal rate. Lungs are clear to auscultation bilaterally. Abdomen soft, nontender, with positive bowel sounds. No guarding or rebound. No pedal edema. Neurological examination nonfocal, nonlateralizing. Const Vital Signs: 10/19/24 08:26 10/19/24 08:31 10/19/24 08:37 Temperature 98.1 F Temperature Source Oral Pulse Rate 79 Respiratory Rate 95 H Respiratory Pattern Tachypnea Blood Pressure 123/86 H Blood Pressure Mean 98 Pulse Ox 22 99 Oxygen Delivery Method Room Air Room Air 10/19/24 09:21 10/19/24 10:00 10/19/24 11:00 Temperature Temperature Source Pulse Rate 77 78 53 L Respiratory Rate 19 H 18 16 Respiratory Pattern Blood Pressure 130/69 H Blood Pressure Mean 89 Pulse Ox 100 100 100 Oxygen Delivery Method Room Air Room Air Room Air MDM MDM MDM Narrative Medical decision making narrative: Differential diagnosis includes but not limited to atrial fibrillation versus ACS. I do not feel that she needs immediate cardioversion as she has a stable blood pressure and normal rate. EKG was obtained and interpreted by myself independently as atrial fibrillation at [address] changes. No STEMI. She is placed on a environmental monitoring technician and chest pain workup pursued. I reviewed her laboratory work and she has normal white count of 4.4 with hemoglobin normal at 12.9, hematocrit 38.6, platelet count normal at 222. Glucose is elevated at 113 but normal anion gap of 10, BUN and creatinine normal, INR is therapeutic at 2.2. Initial high-sensitivity troponin 16 with repeat at 2 hours also being 16 for flat enzymes. I feel she has been ruled out with biomarkers for ACS. Chest x-ray interpreted by myself independently shows no evidence of an acute process, no pneumonia or pneumothorax. I reviewed the radiology report which confirms my independent interpretation. On the monitor, it appeared that she had cardioverted on her own. Second EKG was obtained and interpreted by myself independently as normal sinus rhythm at 50 bpm, bradycardic. At this point in time, I do feel that she can be discharged to follow-up with her projection welding machine operator, Dr. Martinez. I discussed patient with Dr. Arshad with cardiology who agrees that no medication should be added. She can discuss this with her projection welding machine operator. Return instructions to the emergency department were reviewed. Disposition is discharged home in stable condition. History & Record Review Discussion w/independent historian: Patient and Family Additional record(s) reviewed:: Prior ED visit Lab Data Attestation: I reviewed the patient's lab results. Labs: Laboratory Results - last 24 hr 10/19/24 10/19/24 08:26 10:51 WBC 4.4 RBC 4.05 L Hgb 12.9 Hct 38.6 MCV 95.3 MCH 31.9 MCHC 33.4 RDW Std Deviation 45.0 H RDW Coeff of [place] 12.7 Plt Count 222 MPV 10.0 Immature Gran % (Auto) 0.200 Neut % (Auto) 55.3 Lymph % (Auto) 34.3 [place] % (Auto) 9.2 Eos % (Auto) 0.5 Baso % (Auto) 0.5 Absolute Neuts (auto) 2.4 Absolute Lymphs (auto) 1.50 Nucleated RBC % 0 PT 24.5 H INR 2.2 Sodium 134 Potassium 4.1 Chloride 99 Carbon Dioxide 24.8 Anion Gap 10 BUN 15 Creatinine 0.87 Estim Creat Clear Calc 44.88 L Est GFR (MDRD) Non-Af 64 BUN/Creatinine Ratio 17.2 Glucose 113 H Calcium 9.3 Troponin T High Sens 16 H Troponin T Hi Sens 2 Hr 16 H Radiography Diagnostic Testing: Clinical Impression(s) from Imaging Studies Chest X-Ray 10/19/24 09:25 IMPRESSION: Negative Reading [facility] Management Discussion w/another healthcare provider: Order Processing Manager (Dr. Arshad, cardiology) Discharge Plan Triage Chief Complaint: Chest Pain ED Provider: Sampson Melendez Dx/Rx/DC Orders Clinical Impression: Paroxysmal A-fib, Chest pain Instructions: ED AFIB Prescriptions: No Action PreserVision AREDS-2 250-90-40-1 mg capsule 1 tab PO BID timolol maleate 0.5 % drops 1 drp ophthalmic (eye) BID lorazepam 0.5 mg tablet 0.5 mg PO BID gabapentin 100 mg capsule 100 mg PO BID latanoprost 1 DROP bottle 1 drp ophthalmic (eye) QHS levothyroxine 75 mcg tablet 75 mcg PO DAILY Rx Instructions: 1/2 tab on monday gabapentin 400 mg capsule 400 mg PO QHS pantoprazole 20 mg tablet,delayed release (DR/EC) 20 mg PO DAILY Patient Comments: PT TAKES AT BEDTIME. chlorhexidine gluconate 0.12 % mouthwash 15 ml PO BID warfarin 4 mg tablet 4 mg PO DAILY Protocol: Dose Management Condition: Monday Dose/Route: 4 mg Instruction: 1 x 4 mg tablet Condition: Monday Dose/Route: 4 mg Instruction: 1 x 4 mg tablet Condition: Monday Dose/Route: 4 mg Instruction: 1 x 4 mg tablet Condition: Monday Dose/Route: 4 mg Instruction: 1 x 4 mg tablet Condition: Dose/Route: 4 mg Instruction: 1 x 4 mg tablet Condition: Monday Dose/Route: 4 mg Instruction: 1 x 4 mg tablet Condition: Monday Dose/Route: 4 mg Instruction: 1 x 4 mg tablet Protocol Text: Adjustment Start Date: Monday10/16/24 INR Value: 2.1 INR Date: 10/16/24 Recheck Date: 10/23/24 Patient Comments: PT TAKES AT 5PM. losartan 25 mg tablet 25 mg PO BID Qty: 180 3RF Primary Care Provider: Luis M Lama Referrals: Obey Martinez MD [Med Staff - Active Staff] - 2 Days Luis M Lama DO [Primary Care Provider] - Activity Restrictions/Additional Instructions: Follow-up with Dr. Martinez on Monday. If you go into atrial fibrillation again, you may need to take the Tikosyn dose as previously directed. Return to the emergency department with increased chest pain/pressure, rapid heart rate, new or worsening symptoms. Print Language: Samoan Disposition Disposition: Home, Self Care
--- OUTSIDE RECORDS SUMMARY | 2024-10-19 09:01 | XMS RPT_ITS | CCD ---
Author Organization [facility] Care Team Providers Care Mri Specialist Name Role Phone Dr. Luis M Lama Primary Care Provider [phone] Dr. Luis M Lama Referring Provider [phone] Sebastián Bolaños Attending Provider [phone] Dr. Luis M Lama Primary Care Provider [phone] Dr. Luis M Lama Referring Provider [phone] Dr. Antoni Valerio Attending Provider VICTOR M Chairez Attending Provider Dr. Luis M Lama Primary Care Provider [phone] Dr. Luis M Lama Referring Provider Dr. Antoni Valerio Attending Provider VICTOR M Chairez Attending Provider VICTOR M Madison Attending Provider Dr. Luis M Lama Primary Care Provider [phone] Dr. Luis M Lama Referring Provider JUSTICE Oswald NP Attending Provider Dr. Luis M Lama Primary Care Provider [phone] Dr. Luis M Lama Referring Provider [phone] Dr. Luis M Lama Primary Care Provider [phone] Dr. Luis M Lama Referring Provider [phone] VICTOR M Chairez Attending Provider Dr. Luis M Lama Primary Care Provider [phone] Dr. Luis M Lama Referring Provider [phone] Luis M Lama Primary Care Provider [phone] Luis M Lama Referring Provider [phone] VICTOR M Chairez Attending Provider VICTOR M Madison Attending Provider Dr. Luis M Lama Primary Care Provider [phone] Luis M Lama Referring Provider VICTOR M Madison Attending Provider [phone] Dr. Antoni Valerio Attending Provider [phone] Dr. Luis M Lama Primary Care Provider [phone] Luis M Lama Referring Provider [phone] Tommie Swanson Attending Provider [phone] Dr. Gurdeep Martinez Attending Provider [phone] Dr. Gurdeep Martinez Referring Provider [phone] Dr. Clement Luna Attending Provider [phone] Luis M Lama Primary Care Provider [phone] Luis M Lama Referring Provider [phone] Gurdeep Martinez Attending Provider [phone] Dr. Gurdeep Martinez Referring Provider [phone] Dr. Clement Luna Attending Provider [phone] Luis M Lama Primary Care Unavailable Luis M Lama Attending Unavailable Kelby, Luis M Referring Unavailable Kelby, Luis M Primary Care Unavailable Roof BUTTON TUFTING MACHINE OPERATOR, Hung H Attending Unavailable Roof BUTTON TUFTING MACHINE OPERATOR, Hung H Referring Unavailable Kelby, Luis M Primary Care Unavailable KelbyLuis M hood Attending Unavailable Kelby, Luis M Primary Care Unavailable Kelby, Luis M Attending Unavailable Kelby, Luis M Primary Care Unavailable Gurdeep Martinez Consulting Unavailable Darek BUTTON TUFTING MACHINE OPERATOR, Shawna Referring Unavailable Oswald BUTTON TUFTING MACHINE OPERATOR, Shawna Attending Unavailable Roof BUTTON TUFTING MACHINE OPERATOR, Hung H Consulting Unavailable KelbyLuis M hood Consulting Unavailable Kelby, Luis M Primary Care Unavailable Gurdeep Martinez Consulting Unavailable Darek BUTTON TUFTING MACHINE OPERATOR, Shawna Attending Unavailable Oswald BUTTON TUFTING MACHINE OPERATOR, Shawna Referring Unavailable Roof BUTTON TUFTING MACHINE OPERATOR, Hung H Consulting Unavailable KelbyLuis M hood Consulting Unavailable Oswald BUTTON TUFTING MACHINE OPERATOR, Shawna Attending Unavailable Gurdeep Martinez Consulting Unavailable Oswald BUTTON TUFTING MACHINE OPERATOR, Shawna Referring Unavailable Kelby, Luis M Primary Care Unavailable Roof BUTTON TUFTING MACHINE OPERATOR, Hung H Consulting Unavailable KelbyLuis M nam Consulting Unavailable Perales PA, Courtney M Consulting Unavail able Kelby, Luis M Primary Care Unavailable Gurdeep Martinez Consulting Unavailable Tereletsirving, Luis M Referring Unavailable TereletsLuis M villatoro Attending Unavailable Tereletsky, Luis M Admitting Unavailable Kelby, Luis M Primary Care Unavailable Gurdeep Martinez Consulting Unavailable Oswald BUTTON TUFTING MACHINE OPERATOR, Shawna Referring Unavailable Oswald BUTTON TUFTING MACHINE OPERATOR, Shawna Attending Unavailable Wali BUTTON TUFTING MACHINE OPERATOR, Hung H Consulting Unavailable Kelby, Luis M Consulting Unavailable Perales PA, Courtney Workman Consulting Unavail able Kelby, Luis M Primary Care Unavailable KelbyLuis M hood Attending Unavailable Kelby, Luis M Primary Care Unavailable Luis M Lama Attending Unavailable Gurdeep Martinez Consulting Unavailable TerLuis M harden Admitting Unavailable Tereletsky, Luis M Referring Unavailable Luis M Cortés Attending Unavailable Kelby, Luis M Primary Care Unavailable Moo, Luis M Consulting Unavailable Gurdeep Martinez Attending Unavailable Kelby, Luis M Primary Care Unavailable Luis M Lama Attending Unavailable KelbyLuis M hood Referring Unavailable Gurdeep Martinez Consulting Unavailable Oswald BUTTON TUFTING MACHINE OPERATOR, Shawna Attending Unavailable Oswald BUTTON TUFTING MACHINE OPERATOR, Shawna Referring Unavailable Kelby, Luis M Primary Care Unavailable Roof BUTTON TUFTING MACHINE OPERATOR, Hung H Consulting Unavailable KelbyLuis M nam Consulting Unavailable Angella PA, Courtney Workman Consulting Unavail able KelbyLuis M hood Primary Care Unavailable Gurdeep Martinez Consulting Unavailable Oswald BUTTON TUFTING MACHINE OPERATOR, Shawna Referring Unavailable Oswald BUTTON TUFTING MACHINE OPERATOR, Shawna Attending Unavailable Wali BUTTON TUFTING MACHINE OPERATOR, Hung H Consulting Unavailable KelbyLuis M Consulting Unavailable Perales PA, Courtney Workman Consulting Unavail able KelbyLuis M hood Primary Care Unavailable Luis M Lama Attending Unavailable Gurdeep Martinez Consulting Unavailable KelbyLuis M Referring Unavailable Kelby, Luis M Primary Care Unavailable KelbyLuis M hood Attending Unavailable Kelby, Luis M Primary Care Unavailable KelybLuis M Attending Unavailable Kelby, Luis M Primary Care Unavailable Gurdeep Martinez Consulting Unavailable Oswald BUTTON TUFTING MACHINE OPERATOR, Shawna Referring Unavailable Oswald BUTTON TUFTING MACHINE OPERATOR, Shawna Attending Unavailable Roof BUTTON TUFTING MACHINE OPERATOR, Hung H Consulting Unavailable KelbyLuis M nam Consulting Unavailable Perales PA, Courtney M Consulting Unavail able Kelby, Luis M Primary Care Unavailable Kelby, Luis M Referring Unavailable Angella PA, Courtney Workman Attending Unavail able Kelby, Luis M Primary Care Unavailable Ashley Hyatt Attending Unavailable Gurdeep Martinez Attending Unavailable KelbyLuis M Referring Unavailable Kelby, Luis M Primary Care Unavailable Kelby, Luis M Primary Care Unavailable Gurdeep Martinez Attending Unavailable Kelby, Luis M Referring Unavailable Kelby, Luis M Primary Care Unavailable Wali BUTTON TUFTING MACHINE OPERATOR, Hung Gallegos Attending Unavailable Kelby, Luis M Referring Unavailable Kelby, Luis M Primary Care Unavailable Kelby, Luis M Referring Unavailable Gurdeep Martinez Attending Unavailable Kelby, Luis M Primary Care Unavailable Kelby, Luis M Attending Unavailable Kelby, Luis M Primary Care Unavailable Kelby, Luis M Attending Unavailable Kelby, Luis M Primary Care Unavailable Kelby, Luis M Attending Unavailable Kelby, Luis M Primary Care Unavailable Kelby, Luis M Attending Unavailable Kelby, Luis M Primary Care Unavailable Kelby, Luis M Attending Unavailable Kelby, Luis M Primary Care Unavailable Kelby, Luis M Attending Unavailable Kelby, Luis M Primary Care Unavailable Kelby, Luis M Attending Unavailable Kelby, Luis M Primary Care Unavailable Kelby, Luis M Attending Unavailable Kelby, Luis M Primary Care Unavailable Kelby, Luis M Attending Unavailable Kelby, Luis M Primary Care Unavailable Gurdeep Martinez Consulting Unavailable Darek BUTTON TUFTING MACHINE OPERATOR, Shawna Attending Unavailable Darek BUTTON TUFTING MACHINE OPERATOR, Shawna Referring Unavailable Wali ROA, Hung Gallegos Consulting Unavailable Kelby, Luis M Consulting Unavailable Allergies Allergy Classification Reported Allergen(s) Allergy Type Date of Onset Reaction(s) Facility (20 sources) Enoxaparin Drug Allergy 10-22-19 [facility] (20 sources) Sulfonamides (Antibiotic); Translations: [Sulfa (Sulfonamide Antibiotics)] Allergy to substance 10-22-19 [facility] (13 sources) hydroCHLOROthiazide Drug Allergy 08-30-19 23 urinary incontinence/l eaking [facility] (12 sources) amLODIPine Drug Allergy 10-23-19 23 Marked swelling in feet and ankles [facility] (1 source) Amiodarone Drug Allergy 02-21-20 24 [facility] (1 source) amLODIPine Drug Allergy 02-21-20 [facility] (1 source) dofetilide Drug Allergy 02-21-20 [facility] (1 source) Enoxaparin Drug Allergy 02-21-20 [facility] (1 source) hydroCHLOROthiazide Drug Allergy 02-21-20 24 [facility] Medications Current Medications Medication Drug Class(es) Dates Sig (Normalized) Sig (Original) acetaminophen 500 mg oral capsule (20 sources) Start: 10-21-2021 take 500 mg by mouth every six hours Acetaminophen Active 500 MG PO EVERY 6 HOURS October 21, 2021 12:00am ascorbic acid 113 mg / beta carotene 7160 mg / cuprous oxide 0.4 mg / dl-alpha tocopheryl acetate 100 unt / zinc oxide 17.4 mg oral tablet (17 sources) Vitamin C Start: 06-27-2022 take 2 tablets by mouth twice daily at dinner Vitamins A,C,Q-Looc-Tlrjtr (Preservision Areds) 2,148 mcg-113 mg-45 mg-17.4mg tablet Active 2 TABLET PO TWICE A DAY June 27, 2022 1:00am administer with AM and PM meals cetirizine hydrochloride 10 mg oral tablet (20 sources) Histamine-1 Receptor Antagonist Start: 08-03-2022 End: 07-03-2023 take 1 tablet by mouth once daily Cetirizine (Zyrtec) 10 mg tablet Active 10 MG PO DAILY July 03, 2023 10:17am Start: 10-21-2021 End: 06-27-2022 take 1 tablet by mouth once daily Cetirizine (Zyrtec) 10 mg tablet Discontinued 10 MG PO DAILY October 21, 2021 12:00am June 27, 2022 10:38am cholecalciferol 0.125 mg oral capsule (20 sources) Vitamin D Start: 08-03-2022 take 125 ug by mouth once daily Cholecalciferol (Vitamin D3) Active 125 MCG PO DAILY August 03, 2022 12:00am Start: 06-24-2020 End: 06-27-2022 take 125 ug by mouth once daily Cholecalciferol (Vitamin D3) Discontinued 125 MCG PO DAILY June 24, 2020 1:00am June 27, 2022 10:38am Start: 09-12-2016 End: 06-24-2020 take 5000 [IU] by mouth once daily Cholecalciferol (Vitamin D3) Discontinued 5000 UNIT PO DAILY September 12, 2016 12:00am June 24, 2020 2:47pm fluticasone propionate 0.05 mg/actuat metered dose nasal spray (20 sources) Corticosteroid Start: 02-27-2020 End: 10-21-2021 take 1 spray(s) nasal route once daily Fluticasone Propionate (Allergy Relief (Fluticasone)) 50 mcg/actuation spray,suspension Active 1 SPRAY INTRANASAL DAILY October 21, 2021 10:10am administer into each nostril latanoprost 0.05 mg/ml ophthalmic solution (20 sources) Prostaglandin Analog Start: 09-12-2016 Latanoprost Active 1 DRP AT BEDTIME September 12, 2016 12:00am levothyroxine sodium 0.075 mg oral tablet (20 sources) l-Thyroxine Start: 02-27-2020 take 0.5 tablet by mouth once daily Levothyroxine Active 75 MCG PO DAILY February 27, 2020 9:58am 1/2 tab on monday Start: 09-12-2016 End: 02-27-2020 take 75 ug by mouth once daily Levothyroxine Discontin ued 75 MCG PO DAILY September 12, 2016 12:00am February 27, 2020 9:59am losartan potassium 50 mg oral tablet (20 sources) Angiotensin 2 Receptor Siria Start: 10-05-2022 End: 10-05-2022 take 50 mg by mouth twice daily Losartan Active 50 MG PO TWICE A DAY 180 October 05, 2022 12:24pm Start: 09-12-2016 End: 10-05-2022 take 100 mg by mouth once daily Losartan Discontinued 100 MG PO DAILY September 12, 2016 12:00am October 05, 2022 12:23pm simvastatin 20 mg oral tablet (20 sources) HMG-CoA Reductase Inhibitor Start: 07-11-2022 End: 10-31-2022 take 20 mg by mouth every other day Simvastatin Active 20 MG PO .qod October 31, 2022 9:52am Start: 02-27-2020 End: 02-27-2020 take 20 mg by mouth once daily Simvastatin Discontinue d 20 MG PO DAILY February 27, 2020 9:59am February 27, 2020 10:35am Start: 06-13-2019 End: 06-27-2022 take 20 mg by mouth every other day Simvastatin Discontinued 20 MG PO .qod 45 July 16, 2021 1:58pm June 27, 2022 10:38am Start: 03-23-2019 End: 06-13-2019 take 20 mg by mouth once daily Simvastatin Discontinue d 20 MG PO DAILY March 23, 2019 12:02pm June 13, 2019 4:26pm Start: 09-12-2016 End: 03-23-2019 take 20 mg by mouth every other day Simvastatin Discontinued 20 MG PO EVERY OTHER DAY 45 November 21, 2018 3:42pm March 23, 2019 12:02pm timolol 2.5 mg/ml ophthalmic solution (20 sources) beta-Adrenergic Siria Start: 09-12-2016 Timolo l Maleate Active 1 DRP EACH EYE TWICE A DAY September 12, 2016 12:00am warfarin sodium 4 mg oral tablet (20 sources) Vitamin K Antagonist Start: 07-04-2023 Warfarin Active 4 MG PO .COMPLEX 135 July 04, 2023 11:24am 2mg Sat, Sun, and Weds, and 4 mg all other days. Start: 07-11-2022 End: 07-04-2023 Warfarin Discontinued 4 MG P O .COMPLEX 135 July 11, 2022 1:00am July 04, 2023 11:26am 4 mg orally 1 and 1/2 tablets (6mg) on Mondays, 1 tablet (4 mg) all other days; Start: 01-30-2019 End: 06-13-2019 take 1.5 tablets by mouth once daily Warfarin Discontinued 4 MG PO .COMPLEX 135 January 30, 2019 12:00am June 13, 2019 4:26pm 4 mg PO daily except 1.5 tablets (6mg) on Fridays; Start: 04-16-2018 End: 09-03-2018 Warfarin Discontinued 6 MG P O FR April 16, 2018 1:00am September 03, 2018 9:08am Start: 12-18-2017 End: 09-03-2018 take 1 tablet by mouth once daily Warfarin Discontinued 4 MG PO SUMOTUWSHANITA April 16, 2018 10:04am September 03, 2018 9:08am 4 mg PO 1.tablets (6 mg) on Fridays, 1 tablet (4mg) daily all other days of the week. Completed/Discontinued Medications Medication Drug Class(es) Dates Sig (Normalized) Sig (Original) amiodarone hydrochloride 200 mg oral tablet (20 sources) Antiarrhythmic Start: 05-23-2023 End: 06-20-2023 take 200 mg by mouth once daily Amiodarone Discontinued 200 MG PO DAILY May 23, 2023 7:37pm June 20, 2023 4:01pm Start: 11-09-2022 End: 05-23-2023 take 100 mg by mouth once daily Amiodarone Discontinued 100 MG PO DAILY November 09, 2022 4:17pm May 23, 2023 7:38pm Start: 10-31-2022 End: 11-09-2022 take 200 mg by mouth once daily Amiodarone Discontinued 200 MG PO DAILY October 31, 2022 12:00am November 09, 2022 4:18pm amLODIPine 5 mg oral tablet (20 sources) Dihydropyridine Calcium Channel Siria Start: 10-05-2022 End: 10-11-2022 take 5 mg by mouth once daily Amlodipine Discontinued 5 MG PO DAILY October 05, 2022 12:22pm October 11, 2022 4:30pm Start: 09-20-2022 End: 10-05-2022 take 5 mg by mouth twice daily Amlodipine Discontinued 5 MG PO TWICE A DAY September 20, 2022 12:00am October 05, 2022 12:22pm Start: 09-07-2022 End: 09-20-2022 take 2.5 mg by mouth twice daily Amlodipine Discontinued 2.5 MG PO TWICE A DAY September 07, 2022 8:33am September 20, 2022 1:32pm Start: 08-29-2022 End: 09-07-2022 take 2.5 mg by mouth once daily Amlodipine Discontinued 2.5 MG PO DAILY August 29, 2022 12:00am September 07, 2022 8:33am apixaban 5 mg oral tablet (17 sources) Factor Xa Inhibitor Start: 07-11-2022 End: 07-11-2022 take 1 tablet by mouth twice daily Apixaban (Eliquis) 5 mg tablet Discontinued 5 MG PO TWICE A DAY 60 July 11, 2022 1:00am July 11, 2022 4:01pm aspirin 81 mg delayed release oral tablet (20 sources) Platelet Aggregation Inhibitor, Nonsteroidal Anti-inflammatory Drug Start: 09-12-2016 End: 05-04-2017 take 81 mg by mouth once daily Aspirin Discontinued 81 MG PO DAILY@0800 September 12, 2016 12:00am May 04, 2017 5:08pm azithromycin 250 mg oral tablet (17 sources) Macrolide Antimicrobial Start: 06-27-2022 End: 08-03-2022 Azithromycin Discontinued 0 PO .COMPLEX 6 June 27, 2022 1:00am August 03, 2022 4:03pm take 500 mg today (day 1), then 250 mg for 4 days (days 2-5) PO carvedilol 12.5 mg oral tablet (20 sources) alpha-Adrenergic Siria, beta-Adrenergic Siria Start: 11-09-2022 End: 06-20-2023 take 6.25 mg by mouth twice daily at mealtime Carvedilol Discontinued 6.25 MG PO TWICE A DAY 180 November 09, 2022 4:17pm June 20, 2023 4:01pm must administer with a meal/food Start: 10-24-2022 End: 11-09-2022 take 12.5 mg by mouth twice daily at mealtime Carvedilol Discontinued 12.5 MG PO TWICE A DAY 180 October 24, 2022 12:00am November 09, 2022 4:18pm must administer with a meal/food Start: 08-03-2022 End: 10-24-2022 take 6.25 mg by mouth twice daily at mealtime Carvedilol Discontinued 6.25 MG PO TWICE A DAY 180 August 05, 2022 8:36am October 24, 2022 3:56pm must administer with a meal/food Start: 07-11-2022 End: 08-03-2022 take 12.5 mg by mouth twice daily at mealtime Carvedilol Discontinued 12.5 MG PO TWICE A DAY July 11, 2022 1:00am August 03, 2022 4:03pm must administer with a meal/food Start: 10-21-2021 End: 07-11-2022 take 3.125 mg by mouth twice daily Carvedilol Discontinued 3.125 MG PO TWICE A DAY 180 October 21, 2021 1:20pm July 11, 2022 3:19pm Start: 10-21-2021 End: 10-21-2021 take 6.25 mg by mouth twice daily Carvedilol Discontinued 6.25 MG PO TWICE A DAY 180 October 21, 2021 10:44am October 21, 2021 1:20pm Start: 04-19-2017 End: 10-21-2021 take 6.25 mg by mouth twice daily Carvedilol Discontinued 6.25 MG PO TWICE A DAY 180 December 02, 2020 4:18pm October 21, 2021 10:45am Start: 09-18-2016 End: 04-19-2017 take 3.125 mg by mouth twice daily Carvedilol Discontinued 3.125 MG PO TWICE A DAY September 18, 2016 12:00am April 19, 2017 3:22pm codeine phosphate 2 mg/ml / guaiFENesin 20 mg/ml oral solution (17 sources) Opioid Agonist Start: 06-27-2022 End: 08-03-2022 take 1 mL by mouth every six hours Codeine-Guaifenesin Discontinued 5 ML PO EVERY 6 HOURS 118 June 27, 2022 1:00am August 03, 2022 4:03pm codeine phosphate 2 mg/ml / promethazine hydrochloride 1.25 mg/ml oral solution (17 sources) Opioid Agonist, Phenothiazine Start: 06-27-2022 End: 06-27-2022 take 1 mL by mouth every six hours Promethazine-Codeine Discontinued 5 ML PO EVERY 6 HOURS 118 June 27, 2022 1:00am June 27, 2022 11:53am flecainide acetate 50 mg oral tablet (20 sources) Antiarrhythmic Start: 04-20-2017 End: 02-27-2018 take 1 tablet by mouth every twelve hours flecainide 50 mg tablet Discontinued 50 MG PO Q12H April 20, 2017 1:00am February 27, 2018 1:17pm furosemide 40 mg oral tablet (20 sources) Loop Diuretic Start: 12-21-2020 End: 01-20-2021 Furosemide (Lasix) 40 mg tablet Discontinued 40 MG PO .PRN 30 December 21, 2020 12:00am January 20, 2021 12:01am gabapentin 100 mg oral capsule (18 sources) Anti-epileptic Agent Start: 04-13-2022 End: 06-27-2022 take 100 mg by mouth at bedtime Gabapentin Discontinued 100 MG PO AT BEDTIME April 13, 2022 1:00am June 27, 2022 10:38am hydroCHLOROthiazide 12.5 mg oral tablet (13 sources) Thiazide Diuretic Start: 08-16-2022 End: 08-29-2022 take 12.5 mg by mouth once daily Hydrochlorothiazide Discontinued 12.5 MG PO DAILY August 16, 2022 12:00am August 29, 2022 5:42pm Cnjxawgfb-G4-Mdj83-Alga l Oil (20 sources) Start: 09-18-2016 End: 04-19-2017 Iwytfxykg-O2-Tsd41-Alg al Oil Discontinued 1 EACH PO AT BEDTIME September 17, 2016 11:00pm April 19, 2017 8:59am Start: 09-18-2016 End: 04-19-2017 Gdrmhegzv-E8-Uqo54-Algal Oil Discontinued 1 EACH PO AT BEDTIME September 18, 2016 12:00am April 19, 2017 9:59am Iumoiuori-A8-Mdh90-Algal Oil (Metanx (Algal Oil)) 3 mg-35 mg-2 mg -90.314 mg capsule (20 sources) Start: 04-19-2017 End: 06-27-2022 take 1 capsule by mouth once daily Zpurcwcol-A5-Lqn92-Algal Oil (Metanx (Algal Oil)) 3 mg-35 mg-2 mg -90.314 mg capsule Discontinued 1 CAP PO .daily April 19, 2017 12:00am June 27, 2022 9:38am Start: 04-19-2017 End: 06-27-2022 take 1 capsule by mouth once daily Izehbcoba-N6-Jki52-Algal Oil (Metanx (Algal Oil)) 3 mg-35 mg-2 mg -90.314 mg capsule Discontinued 1 CAP PO .daily April 19, 2017 1:00am June 27, 2022 10:38am Start: 04-19-2017 take 1 capsule by mo ut once daily Ohlcyehpp-D1-Mnw71-Algal Oil (Metanx (Algal Oil)) 3 mg-35 mg-2 mg -90.314 mg capsule Active 1 CAP PO .daily April 19, 2017 12:00am Start: 04-19-2017 take 1 capsule by mo uth once daily Gpfgvnmbe-B9-Lhf24-Algal Oil (Metanx (Algal Oil)) 3 mg-35 mg-2 mg -90.314 mg capsule Active 1 CAP PO .daily April 19, 2017 1:00am loratadine 10 mg oral tablet (20 sources) Start: 10-18-2019 End: 10-21-2021 take 1 tablet by mouth once daily Loratadine (Claritin) 10 mg tablet Discontinued 10 MG PO DAILY October 18, 2019 12:00am October 21, 2021 10:10am LORazepam 0.5 mg oral tablet (20 sources) Benzodiazepine Start: 10-21-2021 End: 06-27-2022 take 0.25 mg by mouth twice daily Lorazepam Discontinued 0.25 MG PO TWICE A DAY October 21, 2021 12:00am June 27, 2022 10:38am metoprolol tartrate 50 mg oral tablet (8 sources) beta-Adrenergic Siria Start: 06-30-2023 End: 07-03-2023 take 25 mg by mouth twice daily Metoprolol Tartrate Discontinued 25 MG PO TWICE A DAY 180 June 30, 2023 2:59pm July 03, 2023 11:13am Start: 06-20-2023 End: 06-30-2023 take 50 mg by mouth twice daily Metoprolol Tartrate Discontinued 50 MG PO TWICE A DAY 180 June 20, 2023 1:00am June 30, 2023 2:59pm montelukast 10 mg oral tablet (20 sources) Leukotriene Receptor Antagonist Start: 06-13-2019 End: 04-13-2022 take 1 tablet by mouth once daily Montelukast (Singulair) 10 mg tablet Discontinued 10 MG PO DAILY June 13, 2019 1:00am April 13, 2022 11:44am Nerves (20 sources) Start: 10-21-2021 End: 04-13-2022 take 200 mg by mouth twice daily Nerves Discontinued 200 MG PO TWICE A DAY October 21, 2021 12:00am April 13, 2022 11:44am Start: 10-21-2021 End: 04-13-2022 take 200 mg by mouth twice daily Nerves Discontinued 200 MG PO TWICE A DAY October 20, 2021 11:00pm April 13, 2022 10:44am Start: 10-21-2021 take 200 mg by mouth twice daily Nerves Active 200 MG PO TWICE A DAY October 20, 2021 11:00pm Start: 10-21-2021 take 200 mg by mouth twice daily Nerves Active 200 MG PO TWICE A DAY October 21, 2021 12:00am polyethylene glycol 3350 50347 mg powder for oral solution (20 sources) Osmotic Laxative Start: 04-19-2017 End: 10-18-2019 Polyethylene Glycol 3350 (Clearlax) 17 gram/dose powder Discontinued 17 GM PO daily April 19, 2017 1:00am October 18, 2019 9:20am Polyethylene Glycols (20 sources) Start: 09-12-2016 End: 04-19-2017 Polyethylene Glycol 8000(Bulk) Discontinued 500 GM MC DAILY September 11, 2016 11:00pm April 19, 2017 8:58am Start: 09-12-2016 End: 04-19-2017 Polyethylene Glycol 8000(Bul k) Discontinued 500 GM MC DAILY September 12, 2016 12:00am April 19, 2017 9:58am rivaroxaban 20 mg oral tablet (20 sources) Factor Xa Inhibitor Start: 01-29-2019 End: 01-30-2019 take 1 tablet by mouth once daily at mealtime Rivaroxaban (Xarelto) 20 mg tablet Discontinued 20 MG PO DAILY January 29, 2019 12:00am January 30, 2019 9:21am must administer with a meal/food Start: 04-19-2017 End: 12-18-2017 take 20 mg by mouth once Rivaroxaban Discontinued 20 MG PO ONCE 90 April 19, 2017 6:27pm December 18, 2017 5:22pm Problems Active Problems Problem Classification Problem Date Documented Date Episodic/Chronic Acute bronchitis (20 sources) Acute bronchitis; Translations: [Acute bronchitis, unspecified] 06-27-2022 Episodic Anxiety disorders (1 source) Generalized anxiety disorder; Translations: [Generalized anxiety disorder] Onset: 07-11-2024 Chronic Cardiac dysrhythmias (20 sources) Paroxysmal atrial fibrillation; Translations: [Paroxysmal atrial fibrillation] Onset: 03-07-2024 Chronic Disorders of lipid metabolism (20 sources) Pure hypercholesterolemia; Translations: [Pure hypercholesterolemia, unspecified] Onset: 01-03-2024 Chronic Essential hypertension (20 sources) Essential hypertension; Translations: [Essential (primary) hypertension] Onset: 04-17-2024 Chronic Fever of unknown origin (17 sources) Fever; Translations: [Fever, unspecified] 06-27-2022 Episodic Malaise and fatigue (20 sources) Fatigue; Translations: [Other fatigue] Episodic Other aftercare (20 sources) Long-term current use of 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; Translations: [FPC (current) use of 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s] 04-17-2018 Episodic Other aftercare (5 sources) Drug therapy finding; Translations: [Other jail (current) drug therapy] 05-31-2023 Episodic Other aftercare (5 sources) Other jail (current) drug therapy; Translations: [Long-term (current) use of other medications] 05-31-2023 Episodic Other and unspecified benign neoplasm (18 sources) History of polyp of colon; Translations: [Personal history of colonic polyps] 04-04-2022 Episodic Other and unspecified benign neoplasm (8 sources) Personal history of colonic polyps; Translations: [Personal history of colonic polyps] Episodic Other circulatory disease (12 sources) H/O: hypertension; Translations: [Personal history of other diseases of the circulatory system] 10-22-2022 Episodic Otitis media and related conditions (10 sources) Dysfunction of eustachian tube; Translations: [Unspecified Eustachian tube disorder, right ear] 12-23-2022 Episodic Residual codes; unclassified (20 sources) Family history of cancer of colon; Translations: [Family history of malignant neoplasm of digestive organs] 04-17-2018 Episodic Residual codes; unclassified (8 sources) Family history of malignant neoplasm of digestive organs; Translations: [Family history of malignant neoplasm of gastrointestinal tract] Episodic Residual codes; unclassified (1 source) Other amnesia; Translations: [Other amnesia] Onset: 09-12-2024 Episodic Viral infection (20 sources) Disease caused by 2019-nCoV; Translations: [COVID-19] 01-26-2021 Episodic Past or Other Problems Problem Classification Problem Date Documented Date Episodic/Chronic Cardiac dysrhythmias (10 sources) Bradycardia; Translations: [Bradycardia, unspecified] Onset: 01-16-2024 07-03-2023 Episodic Other aftercare (11 sources) 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; Translations: [Long-term (current) use of 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s] Onset: 01-16-2024 05-31-2023 Episodic Other aftercare (1 source) Encounter for therapeutic drug level monitoring; Translations: [Encounter for therapeutic drug level monitoring] Onset: 07-11-2024 Episodic Other nervous system disorders (1 source) Parageusia; Translations: [Parageusia] Onset: 01-10-2024 Episodic Residual codes; unclassified (20 sources) History of radiofrequency ablation operation for arrhythmia; Translations: [Other specified postprocedural states] Onset: 08-06-2017 04-17-2018 Episodic Residual codes; unclassified (6 sources) Other specified postprocedural states; Translations: [Personal history of surgery to heart and great vessels, presenting hazards to health] Onset: 08-06-2017 05-31-2023 Episodic Unclassified (20 sources) LETICIA (obstructive sleep apnea) 04-17-2018 Urinary tract infections (1 source) Urinary tract infection, site not specified; Translations: [Urinary tract infection, site not specified] Onset: 06-13-2024 Episodic Results Test Name Value Interpretation Reference Range Facility Brain/Head W/WO Contraston 0 09-06-2024 Brain/Head W/WO Contrast [facility] Services [address] [place], [place] [address] Brain/Head W/WO Contrast MR#: [id number] Acct: [id number] Name: ELIZABETH CHEATHAM Rep #: [id number] : 1935 F 89 From: Jonah villavicencio MD PCP: Dr. Luis M Lama, Status: REG CLI Study: Brain/Head W/WO Contrast Date of Exam: Exam# [id number] Ordering Dr: Luis M Lama DO PROCEDURE: BRAIN/HEAD W/WO CONTRAST 09/06/2024 REASON FOR EXAM: MEMORY IMPAIRMENT TECHNIQUE: Head CT before and following intravenous contrast. Coronal and Sagittal reconstruction series were provided. CONTRAST: Omnipaque 350 VOLUME: 100 mL Gauge IV One or more dose reduction techniques were used (e.g., Automated exposure control, adjustment of the mA and/or kV according to patient size, use of iterative reconstruction technique). COMPARISON: CT brain 10/22/2022 FINDINGS: Acute findings: No evidence of an acute infarct. No intracranial hemorrhage. Brain: Low density in the periventricular white matter suggests mild chronic small vessel ischemic changes. Bilateral basal ganglia mineralization, likely age related. Postcontrast images: No suspicious intracranial mass or abnormal focus of enhancement. CSF Spaces: Moderate generalized cerebral atrophy Sinuses/Mastoids: Mild mucosal thickening at the paranasal sinuses Bones: Calvarium is within normal limits. Bilateral lens replacement. CT/Brain/Head W/WO Contrast IMPRESSION: No acute intracranial abnormality No suspicious intracranial mass, abnormal parenchymal or leptomeningeal enhancement. Reading Location: [facility] CC: Dr. Luis M Lama, DO Cyber Forensics Analyst: Signed Normal [facility] MR/BMS.BPon 07-11-2024 MR/BMS.BP [facility] [address], [address] [place] [address] OFFICE VISIT Date of Service: 07/11/24 MR#: [id number] Acct: [id number] Name: ELIZABETH CHEATHAM Rep #: [id number] : 1935 Provider: JUSTICE toledo Age/Sex: 89/F Location: [facility].BP Status: Signed Intake Vital Signs 02/21/24 11:16 07/11/24 08:20 Height 5 ft 5 in 5 ft 5 in Weight: 149 lb BMI 24.7 BP 138/72 H Blood Pressure Location Lt brachial Position Sitting Respiration 16 Pulse 54 L Pulse Source Monitor BP Intake Visit Reasons: Anxiety Accompanied by: Daughter Allergies enoxaparin (From Lovenox) Allergy (Verified 02/21/24 11:16) Rash Sulfa (Sulfonamide Antibiotics) Allergy (Verified 02/21/24 11:16) Hives amiodarone Adverse Reaction (Intermediate, Verified 02/21/24 11:16) Symptomatic Bradycardia amlodipine Adverse Reaction (Intermediate, Verified 02/21/24 11:16) Marked swelling in feet and ankles dofetilide Adverse Reaction (Intermediate, Verified 02/21/24 11:16) Abdominal pain and gastric burning hydrochlorothiazide Adverse Reaction (Intermediate, Verified 02/21/24 11:16) urinary incontinence/leaking Medications ???Medication ???Instructions ???Recorded ???Confirmed ???Type latanoprost 0.005 % eye drops 1 drp ophthalmic (eye) QHS eyes 07/11/24 History levothyroxine 75 mcg tablet 75 mcg PO DAILY hypothyroid 07/11/24 History warfarin 4 mg tablet 4 mg PO .COMPLEX anticoag #135 tab s 10/09/23 07/11/24 Rx timolol maleate 0.5 % eye drops 1 drp ophthalmic (eye) BID eye 10/2907/11/24 History health vit C 250 mg-vit E 90 mg-zinc 40 1 tab PO BID eye health 12/12/23 0 07/11/24 History mg-copper 1 xe-evpthp-syafbu capsule (PreserVision AREDS-2) losartan 25 mg tablet 25 mg PO BID #180 tabs 01/30/24 Rx gabapentin 100 mg capsule 100 mg PO BID neuropathy 07/04/24 07/11/24 History lorazepam 0.5 mg tablet 0.5 mg PO TID sleep 07/04/2407/11 History buspirone 5 mg tablet mg PO 07/11/24 07/11/24 History Have you fallen in the past year?: No PFSH Medical History Bradycardia H/O abdominal pain Difficulty balancing Pure hypercholesterolemia Essential hypertension Family 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 colon cancer 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 LETICIA (obstructive sleep apnea) Palpitations Supraventricular tachycardia Chest pain, unspecified GERD (gastroesophageal reflux disease) Family history of premature coronary heart disease Patent foramen ovale Peripheral neuropathy Long-term use of high-risk medication Nonsustained ventricular tachycardia Excessive sleepiness Paroxysmal A-fib Snoring Obstructive sleep apnea Surgical History Hx of colonoscopy with polypectomy ( 2017) History of radiofrequency ablation procedure for cardiac arrhythmia ( 08/17/17) Tooth disorder S/P arthroscopic surgery of left knee History of total right knee replacement S/P excision of lipoma H/O section S/P appendectomy S/P lateral meniscal repair H/O: hysterectomy Family History Mother Cancer Colon Diabetes Sister CAD (coronary artery disease) Heart disease Diabetes Son Kidney disease Social History Smoking Status: Former smoker second hand exposure: No alcohol intake: never substance use type: does not use caffeine: No what type of physical activity do you participate in: other details: stationary bike frequency: daily seatbelt use: always do you feel safe at home: Yes HPI History of Present Illness History provided by: patient HPI: Elizabeth Cheatham is an 89 year old female patient presenting today for an intake evaluation. Presents today with memory concerns as well as anxiety. States she had Covid in April and has noticed some cognitive concerns with this and will forget things. Does have nights with heightened anxiety, confusion, sweating, and nausea. States she has been having issues with a lack of appetite and low blood glucose. Patient has recently started with palliative care and adjustments were made with her medication. Sleep: In the past was having issues with waking often in the middle of the night. Does take gabapentin that makes her tired. Is napping after each dose. 8 hours per night of sleep. Interest: Has been more withdrawn and depressed more recently. Does not currently feel depressed but does feel things need changed. Energy: Does feel she is getting too much rest. Guilt: Denies feelings of guilt, hopelessness, or worthlessness. Concentration: Admits to more recent concerns with being easily distracted since Decem (more content not included)... Normal [facility] 12 Lead EKG performed by [facility] on 07-04-2024 12 Lead EKG performed by [facility] [address] [place] [address] 12 Lead EKG performed by [facility] 07/04/24 0813 MR#: [id number] Acct: [id number] Name: ELIZABETH CHEATHAM Rep #: [id number] : 1935 89 From: Courtney Vergara Attending Dr: VICTOR M Garcia Status: DEP AMB Ordering Dr: Courtney Perales Date: 06/09 11/29 Location: [facility] Sex: F C Admitted: [facility]/12 Lead EKG performed by [facility] ECG Report Interpretation A trial flutter-fibrillation -Nonspecific QRS widening and anterior fascicular block. -Old anteroseptal infarct. ABNORMAL Electronically signed on 07/08/2024 at 14:02 by Clement Luna Software Version [id number] 07/08/24 1406 Date Courtney DOW CC: Dr. Luis M Lama, DO Date Dictated: 07/04/24812 Date Transcribed: 07/04/24812 Cyber Forensics Analyst: ADAMARIS Signed Normal [facility] Cardiology Visit Reporton Cardiology Visit Report [facility] [address] [place] [address] OFFICE VISIT Date of Service: 07/04/24 MR#: [id number] Acct: [id number] Name: ELIZABETH CHEATHAM Rep #: [id number] : 1935 Provider: VICTOR M Gifford Age/Sex: 89/F Location: [facility] Status: Signed HPI HPI History of Present Illness Details: Ms. Cheatham, a 89 year old lady comes in today with her . She carries a history of paroxysmal atrial fibrillation status post radiofrequency ablation in 2018 at the [facility]. The patient has been hospitalized at [facility] will be loaded her with Tikosyn. She spontaneously converted from atrial fibrillation into sinus rhythm. She subsequently has discontinued that 2 weeks ago due to not feeling good on the medications. The patient has a long history detailed in my office note of January 03, 2024. Briefly the patient has bilateral normal atrial sizes she has no significant valvular heart disease and ejection fraction of 60%. The patient has been intolerant of amiodarone and metoprolol in the past due to either side effects or profound bradycardia. Her daughter in attendance today. From a cardiac standpoint she is doing well. She does not feel that she has had any episodes of atrial fibrillation. She is now on palliative care. This was to help get her neuropathy under better control. She does not have any chest pain or shortness of breath. She does occasionally have lightheadedness. It is noted that she has lost 25 pounds in the last year. She is working with palliative care on increasing her calorie intake. 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 Is patient in pain?: No Allergies enoxaparin (From Lovenox) Allergy (Verified 02/21/24 11:16) Rash Sulfa (Sulfonamide Antibiotics) Allergy (Verified 02/21/24 11:16) Hives amiodarone Adverse Reaction (Intermediate, Verified 02/21/24 11:16) Symptomatic Bradycardia amlodipine Adverse Reaction (Intermediate, Verified 02/21/24 11:16) Marked swelling in feet and ankles dofetilide Adverse Reaction (Intermediate, Verified 02/21/24 11:16) Abdominal pain and gastric burning hydrochlorothiazide Adverse Reaction (Intermediate, Verified 02/21/24 11:16) urinary incontinence/leaking Medications ???Medication ???Instructions ???Recorded ???Confirmed ???Type latanoprost 0.005 % eye drops 1 drp ophthalmic (eye) QHS eyes 07/04/24 History levothyroxine 75 mcg tablet 75 mcg PO DAILY hypothyroid 07/04/24 History warfarin 4 mg tablet 4 mg PO .COMPLEX anticoag #135 tab s 10/09/23 07/04/24 Rx timolol maleate 0.5 % eye drops 1 drp ophthalmic (eye) BID eye 10/2907/04/24 History health vit C 250 mg-vit E 90 mg-zinc 40 1 tab PO BID eye health 12/12/23 0 07/04/24 History mg-copper 1 kr-tveknm-ofmrew capsule (PreserVision AREDS-2) losartan 25 mg tablet 25 mg PO BID #180 tabs 01/30/24 Rx gabapentin 100 mg capsule 100 mg PO BID neuropathy 07/04/24 07/04/24 History lorazepam 0.5 mg tablet 0.5 mg PO TID sleep 07/04/2407/04 History Ejection fraction %: 60 Have you fallen in the past year?: No [facility] Medical History (Updated 07/04/24 @ 09:40 by Courtney DOW, PA) Bradycardia H/O abdominal pain Difficulty balancing Pure hypercholesterolemia Essential hypertension Family history of colon cancer 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 LETICIA (obstructive sleep apnea) Palpitations Supraventricular tachycardia Chest pain, unspecified GERD (gastroesophageal reflux disease) Family history of premature coronary heart disease Patent foramen ovale Peripheral neuropathy Long-term use of high-risk medication Nonsustained ventricular tachycardia Excessive sleepiness Paroxysmal A-fib Snoring Obstructive sleep apnea Surgical History Hx of colonoscopy with polypectomy ( 2018) History of radiofrequency ablation procedure for cardiac arrhythmia ( 08/17/17) Tooth disorder S/P arthroscopic surgery of left knee History of total right knee replacement S/P excision of lipoma H/O section S/P appendectomy S/P lateral meniscal repair H/O: hysterectomy Family History Mother Cancer Colon Diabetes Sister CAD (coronary artery disease) Heart disease Diabetes Son Kidney disease Social History Smoking Status: Former smoker secon (more content not included)... Normal [facility] L3410.9999on 05-27-2024 [facility] Misc. COMMENT Normal . [facility] Comment on above: Order Comment: [id number] 3PROINSULIN SER/FZ Result Comment: Test Ordered: [id number] Proinsulin Proinsulin 6.0 pmol/L Reference Range: 0.0-10.0 Performed at: - [address] [id number] Member Of Parliament: Brian Hinson MD, Phone: [phone] Performed at: - [address] [id number] Member Of Parliament: Quinn Bennett PhD, Phone: [phone] Performed By: #### L 3300.3500, L300.3900, L3300.6400, M100.2200, L501.9985, L400.2011, L3410.9999, L3100.7750, L501.9520, L509.6000 #### [facility] [address] [place], [place], [address] L3410.9999on 05-24-2024 [facility] Misc. COMMENT Normal . [facility] Comment on above: Order Comment: SER/F Z [id number] BETA HYDROXYBUTYRATE Result Comment: Test Ordered: [id number] Beta-Hydroxybutyrate Beta-Hydroxybutyrate 1.2 mg/dL ES Reference Range: . Reference Range: All Ages (fasting): 0.2 - 2.8 Performed at: [facility] [address] [place] [id number] Member Of Parliament: Oh Aguillon MD, Phone: [phone] Performed at: [facility] [address] [id number] Member Of Parliament: Quinn Bennett PhD, Phone: [phone] Performed By: #### L 3300.3500, L300.3900, L3300.6400, M100.2200, L501.9985, L400.2011, L3410.9999, L3100.7750, L501.9520, L509.6000 #### [facility] [address] [place], [address] Urine Cultureon 05-23-2024 [facility] ADD ON CUUR #1 Below infection level. Presumptive E. coli [place] Count 1000-10,000 Mixed Gram Positive Organisms Mixed Gram Positive Organisms MIXC Mixed contaminants. Submit a new specimen if indicated. Normal [facility] Comment on above: Performed By: #### L 3300.3500, L300.3900, L3300.6400, M100.2200, L501.9985, L400.2010, L3410.9999, L3100.7750, L501.9520, L509.6000 #### [facility] [address] [place], [place], [id number] C-Peptideon 05-22-2024 C PEPTIDE 2.6 ng/mL Normal 1.1-4.4 [facility] Comment on above: Result Comment: C-Pe ptide reference interval is for fasting patients. Performed By: #### L 3300.3500, L300.3900, L3300.6400, M100.2200, L501.9985, L400.2011, L3410.9999, L3100.7750, L501.9520, L509.6000 #### [facility] [address] [place], [place], [id number] Insulin Levelon 05-22-2024 INSULIN,FASTING 4.8 uIU/mL Normal 2.6-24.9 [facility] Comment on above: Result Comment: Perf ormed at: [address] [id number] Member Of Parliament: Quinn Bennett PhD, Phone: [phone] Performed By: #### L 3300.3500, L300.3900, L3300.6400, M100.2200, L501.9985, L400.2011, L3410.9999, L3100.7750, L501.9520, L509.6000 #### [facility] [address] [place], [place], [id number] Prealbumin [id number] Prealbumin [Mass/Vol] 24 mg/dL Normal 9-32 [facility] Comment on above: Result Comment: Perf ormed at: [address] [id number] Member Of Parliament: Quinn Bennett PhD, Phone: [phone] Performed By: #### L 3300.3500, L300.3900, L3300.6400, M100.2200, L501.9985, L400.2010, L3410.9999, L3100.7750, L501.9520, L509.6000 #### [facility] [address] [place], [place], [id number] CORTISOL SERUMon 05-20-2024 CORTISOL 13.20 ug/dL Normal 3.44-22.45 [facility] Comment on above: Result Comment: Adul t (AM) 5.27 - 22.45 ug/dL Adult (PM) 3.44 - 16.76 ug/dL Performed By: #### L 3300.3500, L300.3900, L3300.6400, M100.2200, L501.9985, L400.2010, L3410.9999, L3100.7750, L501.9520, L509.6000 #### [facility] [address] [place], [address] Hemoglobin A1con 05-20-2024 HbA1c (Bld) [Mass fraction] 5.5 % Normal 3.8-5.6 [facility] Comment on above: Result Comment: Norm al < 5.7 % Prediabetic 5.7 - 6.4 % Diabetic >or= 6.5 % Please note range changes. Performed By: #### L 3300.3500, L300.3900, L3300.6400, M100.2200, L501.9985, L400.2010, L3410.9999, L3100.7750, L501.9520, L509.6000 #### [facility] [address] [place], [address] Prothrombin Time w/INRon INR Coag (PPP) [Relative time] 2.6 {INR} Normal [facility] Comment on above: Performed By: #### L 3300.3500, L300.3900, L3300.6400, M100.2200, L501.9985, L400.2010, L3410.9999, L3100.7750, L501.9520, L509.6000 #### [facility] [address] [place], [address] PT Coag (PPP) [Time] 28.1 s High 11.7-14.[address] [facility] Comment on above: Performed By: #### L 3300.3500, L300.3900, L3300.6400, M100.2200, L501.9985, L400.2010, L3410.9999, L3100.7750, L501.9520, L509.6000 #### [facility] [address] [place], [address] Thyroid Stim Hormone (TSH)on 05-20-2024 TSH 3.990 uIU/mL High 0.358-3.740 [facility] Comment on above: Order Comment: COPY OF PT/INR TO DR. GURDEEP MARTINEZ Performed By: #### L 3300.3500, L300.3900, L3300.6400, M100.2200, L501.9985, L400.2011, L3410.9999, L3100.7750, L501.9520, L509.6000 #### [facility] [address] [place], [place], [id number] Urinalysis, Routine (Dipstic k)on 05-20-2024 BILIRUBIN URINE Negative Normal Negative [facility] Comment on above: Order Comment: CLEAN CATCH Performed By: #### L 3300.3500, L300.3900, L3300.6400, M100.2200, L501.9985, L400.2011, L3410.9999, L3100.7750, L501.9520, L509.6000 #### [facility] [address] [place], [place], [id number] Clarity (U) Clear Normal Clear [facility] Comment on above: Order Comment: CLEAN CATCH Performed By: #### L 3300.3500, L300.3900, L3300.6400, M100.2200, L501.9985, L400.2011, L3410.9999, L3100.7750, L501.9520, L509.6000 #### [facility] [address] [place], [place], [id number] Color (U) Yellow Normal Yellow [facility] Comment on above: Order Comment: CLEAN CATCH Performed By: #### L 3300.3500, L300.3900, L3300.6400, M100.2200, L501.9985, L400.2011, L3410.9999, L3100.7750, L501.9520, L509.6000 #### [facility] [address] [place], [place], [id number] GLUCOSE, UR Normal Normal Normal [facility] Comment on above: Order Comment: CLEAN CATCH Performed By: #### L 3300.3500, L300.3900, L3300.6400, M100.2200, L501.9985, L400.2011, L3410.9999, L3100.7750, L501.9520, L509.6000 #### [facility] [address] [place], [address] KETONE UR Negative Normal Negative [facility] Comment on above: Order Comment: CLEAN CATCH Performed By: #### L 3300.3500, L300.3900, L3300.6400, M100.2200, L501.9985, L400.2011, L3410.9999, L3100.7750, L501.9520, L509.6000 #### [facility] [address] [place], [place], [id number] (427) LEUK ESTERASE 500 /ul Abnormal Negative [facility] Comment on above: Order Comment: CLEAN CATCH Performed By: #### L 3300.3500, L300.3900, L3300.6400, M100.2200, L501.9985, L400.2011, L3410.9999, L3100.7750, L501.9520, L509.6000 #### [facility] [address] [place], [place], [id number] (756) Nitrite Ql (U) Negative Normal Negative [facility] Comment on above: Order Comment: CLEAN CATCH Performed By: #### L 3300.3500, L300.3900, L3300.6400, M100.2200, L501.9985, L400.2011, L3410.9999, L3100.7750, L501.9520, L509.6000 #### [facility] [address] [place], [address] OCCULT BLOOD-UR 10 /ul Abnormal Negative [facility] Comment on above: Order Comment: CLEAN CATCH Performed By: #### L 3300.3500, L300.3900, L3300.6400, M100.2200, L501.9985, L400.2011, L3410.9999, L3100.7750, L501.9520, L509.6000 #### [facility] [address] [place], [place], [id number] (017) pH UR 7.0 Normal 5.0 - 8.0 [facility] Comment on above: Order Comment: CLEAN CATCH Performed By: #### L 3300.3500, L300.3900, L3300.6400, M100.2200, L501.9985, L400.2010, L3410.9999, L3100.7750, L501.9520, L509.6000 #### [facility] [address] [place], [place], [id number] (801) PROT DIPSTX Negative Normal Negative [facility] Comment on above: Order Comment: CLEAN CATCH Performed By: #### L 3300.3500, L300.3900, L3300.6400, M100.2200, L501.9985, L400.2010, L3410.9999, L3100.7750, L501.9520, L509.6000 #### [facility] [address] [place], [place], [id number] SP.GR. DIPSTX 1.010 Normal 1.002-1.030 [facility] Comment on above: Order Comment: CLEAN CATCH Performed By: #### L 3300.3500, L300.3900, L3300.6400, M100.2200, L501.9985, L400.2010, L3410.9999, L3100.7750, L501.9520, L509.6000 #### [facility] [address] [place], [place], [id number] (210) UROBILI Normal Normal Normal [facility] Comment on above: Order Comment: CLEAN CATCH Performed By: #### L 3300.3500, L300.3900, L3300.6400, M100.2200, L501.9985, L400.2010, L3410.9999, L3100.7750, L501.9520, L509.6000 #### [facility] [address] [place], [address] Prothrombin Time w/INRon INR Coag (PPP) [Relative time] 2.9 {INR} Normal [facility] Comment on above: Performed By: #### L 3300.3500, L300.3900, L3300.6400, M100.2200, L501.9985, L400.2010, L3410.9999, L3100.7750, L501.9520, L509.6000 #### [facility] [address] [place], [address] PT Coag (PPP) [Time] 30.0 s High 11.7-14.[address] [facility] Comment on above: Performed By: #### L 3300.3500, L300.3900, L3300.6400, M100.2200, L501.9985, L400.2010, L3410.9999, L3100.7750, L501.9520, L509.6000 #### [facility] [address] [place], [address] CBC W/Diff, Automatedon 11 Absolute Lymph 1.53 X10 3/uL Normal 0.83-4.51 [facility] Comment on above: Performed By: #### L 3300.3500, L300.3900, L3300.6400, M100.2200, L501.9985, L400.2010, L3410.9999, L3100.7750, L501.9520, L509.6000 #### [facility] [address] [place], [address] Absolute Neut 2.3 X10 3/uL Normal 2.0-7.7 [facility] Comment on above: Performed By: #### L 3300.3500, L300.3900, L3300.6400, M100.2200, L501.9985, L400.2011, L3410.9999, L3100.7750, L501.9520, L509.6000 #### [facility] [address] [place], [address] Basophils/100 WBC (Bld) 0.5 % Normal 0-1 [facility] Comment on above: Performed By: #### L 3300.3500, L300.3900, L3300.6400, M100.2200, L501.9985, L400.2011, L3410.9999, L3100.7750, L501.9520, L509.6000 #### [facility] [address] [place], [address] Eosinophils/100 WBC (Bld) 0.7 % Normal 0-5 [facility] Comment on above: Performed By: #### L 3300.3500, L300.3900, L3300.6400, M100.2200, L501.9985, L400.2011, L3410.9999, L3100.7750, L501.9520, L509.6000 #### [facility] [address] [place] [place], [address] Erythrocyte distribution width (RBC) [Ratio] 13.0 % Normal 11.6-14.6 [facility] Comment on above: Performed By: #### L 3300.3500, L300.3900, L3300.6400, M100.2200, L501.9985, L400.2011, L3410.9999, L3100.7750, L501.9520, L509.6000 #### [facility] [address] [place] [place], [address] Hematocrit (Bld) [Volume fraction] 36.7 % Low 37-47 [facility] Comment on above: Performed By: #### L 3300.3500, L300.3900, L3300.6400, M100.2200, L501.9985, L400.2011, L3410.9999, L3100.7750, L501.9520, L509.6000 #### [facility] [address] [place], [address] Hemoglobin (Bld) [Mass/Vol] 12.0 g/dL Normal 12.0-15.0 [facility] Comment on above: Performed By: #### L 3300.3500, L300.3900, L3300.6400, M100.2200, L501.9985, L400.2011, L3410.9999, L3100.7750, L501.9520, L509.6000 #### [facility] [address] [place], [address] IG% 0.200 Normal 0.0-0.9 [facility] Comment on above: Result Comment: IG% - Immature Granulocytes (promyelocytes, myelocytes and metamyelocytes) > 1% indicates that a LEFT SHIFT is Present. Performed By: #### L 3300.3500, L300.3900, L3300.6400, M100.2200, L501.9985, L400.2010, L3410.9999, L3100.7750, L501.9520, L509.6000 #### [facility] [address] [place], [address] Lymphocytes/100 WBC (Bld) 36.3 % Normal 19-41 [facility] Comment on above: Performed By: #### L 3300.3500, L300.3900, L3300.6400, M100.2200, L501.9985, L400.2011, L3410.9999, L3100.7750, L501.9520, L509.6000 #### [facility] [address] [place], [address] MCH (RBC) [Entitic mass] 31.4 pg Normal 27.0-32.0 [facility] Comment on above: Performed By: #### L 3300.3500, L300.3900, L3300.6400, M100.2200, L501.9985, L400.2011, L3410.9999, L3100.7750, L501.9520, L509.6000 #### [facility] [address] [place], [address] MCHC (RBC) [Mass/Vol] 32.7 g/dL Normal 32-36 [facility] Comment on above: Performed By: #### L 3300.3500, L300.3900, L3300.6400, M100.2200, L501.9985, L400.2010, L3410.9999, L3100.7750, L501.9520, L509.6000 #### [facility] [address] [place], [address] MCV (RBC) [Entitic vol] 96.1 fL Normal 81-99 [facility] Comment on above: Performed By: #### L 3300.3500, L300.3900, L3300.6400, M100.2200, L501.9985, L400.2010, L3410.9999, L3100.7750, L501.9520, L509.6000 #### [facility] [address] [place], [address] Monocytes/100 WBC (Bld) 8.1 % Normal 0-10 [facility] Comment on above: Performed By: #### L 3300.3500, L300.3900, L3300.6400, M100.2200, L501.9985, L400.2010, L3410.9999, L3100.7750, L501.9520, L509.6000 #### [facility] [address] [place], [address] Neutrophils/100 WBC (Bld) 54.2 % Normal 47-70 [facility] Comment on above: Performed By: #### L 3300.3500, L300.3900, L3300.6400, M100.2200, L501.9985, L400.2011, L3410.9999, L3100.7750, L501.9520, L509.6000 #### [facility] [address] [place], [address] Nucleated RBC (Bld) [#/Vol] 0 10*3/uL Normal 0-5 [facility] Comment on above: Performed By: #### L 3300.3500, L300.3900, L3300.6400, M100.2200, L501.9985, L400.2011, L3410.9999, L3100.7750, L501.9520, L509.6000 #### [facility] [address] [place], [address] Platelet mean volume (Bld) [Entitic vol] 10.5 fL Normal 6.2-12.0 [facility] Comment on above: Performed By: #### L 3300.3500, L300.3900, L3300.6400, M100.2200, L501.9985, L400.2011, L3410.9999, L3100.7750, L501.9520, L509.6000 #### [facility] [address] [place], [address] Platelets (Bld) [#/Vol] 202 10*3/uL Normal 150-450 [facility] Comment on above: Performed By: #### L 3300.3500, L300.3900, L3300.6400, M100.2200, L501.9985, L400.2011, L3410.9999, L3100.7750, L501.9520, L509.6000 #### [facility] [address] [place], [address] RBC (Bld) [#/Vol] 3.82 10*6/uL Low 4.2-5.4 [facility] Comment on above: Performed By: #### L 3300.3500, L300.3900, L3300.6400, M100.2200, L501.9985, L400.2011, L3410.9999, L3100.7750, L501.9520, L509.6000 #### [facility] [address] [place], [address] RDW SD 45.7 fl High 35.1-43.9 [facility] Comment on above: Performed By: #### L 3300.3500, L300.3900, L3300.6400, M100.2200, L501.9985, L400.2010, L3410.9999, L3100.7750, L501.9520, L509.6000 #### [facility] [address] [place], [place], [id number] WBC (Bld) [#/Vol] 4.2 10*3/uL Low 4.4-11.0 [facility] Comment on above: Performed By: #### L 3300.3500, L300.3900, L3300.6400, M100.2200, L501.9985, L400.2010, L3410.9999, L3100.7750, L501.9520, L509.6000 #### [facility] [address] [place], [place], [id number] Comprehensive Metabolic Prof [facility] 03-27-2024 Albumin [Mass/Vol] 3.7 g/dL Normal 3.2-5.0 [facility] Comment on above: Order Comment: CLEAN CATCH Performed By: #### L 3300.3500, L300.3900, L3300.6400, M100.2200, L501.9985, L400.2010, L3410.9999, L3100.7750, L501.9520, L509.6000 #### [facility] [address] [place], [place], [address] Albumin/Globulin [Mass ratio] 1.3 {ratio} Normal 0.9-2.4 [facility] Comment on above: Order Comment: CLEAN CATCH Performed By: #### L 3300.3500, L300.3900, L3300.6400, M100.2200, L501.9985, L400.2011, L3410.9999, L3100.7750, L501.9520, L509.6000 #### [facility] [address] [place], [address] ALK P 71 U/L Normal 45-117 [facility] Comment on above: Order Comment: CLEAN CATCH Performed By: #### L 3300.3500, L300.3900, L3300.6400, M100.2200, L501.9985, L400.2010, L3410.9999, L3100.7750, L501.9520, L509.6000 #### [facility] [address] [place], [address] ALT [Catalytic activity/Vol] 20 U/L Normal 13-56 [facility] Comment on above: Order Comment: CLEAN CATCH Performed By: #### L 3300.3500, L300.3900, L3300.6400, M100.2200, L501.9985, L400.2010, L3410.9999, L3100.7750, L501.9520, L509.6000 #### [facility] [address] [place], [address] AST [Catalytic activity/Vol] 19 U/L Normal 15-37 [facility] Comment on above: Order Comment: CLEAN CATCH Performed By: #### L 3300.3500, L300.3900, L3300.6400, M100.2200, L501.9985, L400.2010, L3410.9999, L3100.7750, L501.9520, L509.6000 #### [facility] [address] [place], [address] Bilirubin [Mass/Vol] 0.40 mg/dL Normal 0.20-1.[address] [facility] Comment on above: Order Comment: CLEAN CATCH Result Comment: For patients on eltrombopag therapy, use of Dimension Galvin TBIL is not recommended. Performed By: #### L 3300.3500, L300.3900, L3300.6400, M100.2200, L501.9985, L400.2011, L3410.9999, L3100.7750, L501.9520, L509.6000 #### [facility] [address] [place], [address] BUN/CRE 19.2 RATIO Normal 10-20 [facility] Comment on above: Order Comment: CLEAN CATCH Performed By: #### L 3300.3500, L300.3900, L3300.6400, M100.2200, L501.9985, L400.2010, L3410.9999, L3100.7750, L501.9520, L509.6000 #### [facility] [address] [place], [address] CA,Total 9.3 mg/dL Normal 8.5-10.1 [facility] Comment on above: Order Comment: CLEAN CATCH Performed By: #### L 3300.3500, L300.3900, L3300.6400, M100.2200, L501.9985, L400.2010, L3410.9999, L3100.7750, L501.9520, L509.6000 #### [facility] [address] [place], [address] Chloride [Moles/Vol] 106 mmol/L Normal 98-[address] [facility] Comment on above: Order Comment: CLEAN CATCH Performed By: #### L 3300.3500, L300.3900, L3300.6400, M100.2200, L501.9985, L400.2011, L3410.9999, L3100.7750, L501.9520, L509.6000 #### [facility] [address] [place], [address] CO2 [Moles/Vol] 31.0 mmol/L Normal 21.0-32.0 [facility] Comment on above: Order Comment: CLEAN CATCH Performed By: #### L 3300.3500, L300.3900, L3300.6400, M100.2200, L501.9985, L400.2010, L3410.9999, L3100.7750, L501.9520, L509.6000 #### [facility] [address] [place], [address] Creatinine [Mass/Vol] 0.83 mg/dL Normal 0.55-1.02 [facility] Comment on above: Order Comment: CLEAN CATCH Result Comment: The validity of the calculated GFR GFRAA in patients over 70 years has not been determined. Clinical correlation is essential. Performed By: #### L 3300.3500, L300.3900, L3300.6400, M100.2200, L501.9985, L400.2010, L3410.9999, L3100.7750, L501.9520, L509.6000 #### [facility] [address] [place], [place], [id number] EST GFR - AA 83 mL/min Normal >60 [facility] Comment on above: Order Comment: CLEAN CATCH Result Comment: Afri can Congolese GFR Calc Performed By: #### L 3300.3500, L300.3900, L3300.6400, M100.2200, L501.9985, L400.2010, L3410.9999, L3100.7750, L501.9520, L509.6000 #### [facility] [address] [place], [address] GAP 1 Low 5-15 [facility] Comment on above: Order Comment: CLEAN CATCH Performed By: #### L 3300.3500, L300.3900, L3300.6400, M100.2200, L501.9985, L400.2010, L3410.9999, L3100.7750, L501.9520, L509.6000 #### [facility] [address] [place], [address] GFR/1.73 sq M.predicted among non-blacks MDRD (S/P/Bld) [Vol rate/Area] 69 mL/min/{1.73_m2} Normal >60 [facility] Comment on above: Order Comment: CLEAN CATCH Result Comment: Non- GFR Calc Performed By: #### L 3300.3500, L300.3900, L3300.6400, M100.2200, L501.9985, L400.2010, L3410.9999, L3100.7750, L501.9520, L509.6000 #### [facility] [address] [place], [address] Globulin (S) [Mass/Vol] 2.9 g/dL Normal 2.2-4.2 [facility] Comment on above: Order Comment: CLEAN CATCH Performed By: #### L 3300.3500, L300.3900, L3300.6400, M100.2200, L501.9985, L400.2010, L3410.9999, L3100.7750, L501.9520, L509.6000 #### [facility] [address] [place], [address] Glucose [Mass/Vol] 86 mg/dL Normal 74-106 [facility] Comment on above: Order Comment: CLEAN CATCH Performed By: #### L 3300.3500, L300.3900, L3300.6400, M100.2200, L501.9985, L400.2010, L3410.9999, L3100.7750, L501.9520, L509.6000 #### [facility] [address] [place], [address] Potassium [Moles/Vol] 4.5 mmol/L Normal 3.5-5.1 [facility] Comment on above: Order Comment: CLEAN CATCH Performed By: #### L 3300.3500, L300.3900, L3300.6400, M100.2200, L501.9985, L400.2011, L3410.9999, L3100.7750, L501.9520, L509.6000 #### [facility] [address] [place], [place], [address] Sodium [Moles/Vol] 138 mmol/L Normal 136-145 [facility] Comment on above: Order Comment: CLEAN CATCH Performed By: #### L 3300.3500, L300.3900, L3300.6400, M100.2200, L501.9985, L400.2010, L3410.9999, L3100.7750, L501.9520, L509.6000 #### [facility] [address] [place], [place], [address] T PROT 6.6 g/dL Normal 6.4-8.2 [facility] Comment on above: Order Comment: CLEAN CATCH Performed By: #### L 3300.3500, L300.3900, L3300.6400, M100.2200, L501.9985, L400.2010, L3410.9999, L3100.7750, L501.9520, L509.6000 #### [facility] [address] [place], [place], [id number] Urea nitrogen [Mass/Vol] 16 mg/dL Normal 7-18 [facility] Comment on above: Order Comment: CLEAN CATCH Performed By: #### L 3300.3500, L300.3900, L3300.6400, M100.2200, L501.9985, L400.2010, L3410.9999, L3100.7750, L501.9520, L509.6000 #### [facility] [address] [place], [place], [id number] Lipid Profileon 03-27-2024 Cholesterol [Mass/Vol] 199 mg/dL Normal 200 [facility] Comment on above: Order Comment: CLEAN CATCH Result Comment: <200 mg/dL Desirable 200-240 mg/dL Borderline >240 mg/dL High Risk Performed By: #### L 3300.3500, L300.3900, L3300.6400, M100.2200, L501.9985, L400.2010, L3410.9999, L3100.7750, L501.9520, L509.6000 #### [facility] [address] [place], [address] Cholesterol in HDL [Mass/Vol] 67 mg/dL Normal [facility] Comment on above: Order Comment: CLEAN CATCH Result Comment: The drugs N-Acetylcysteine and Metamizole may falsely depress this assay. Reference Range HDL <40 mg/dL Low HDL Cholesterol HDL >or= 60 mg/dL High HDL Cholesterol Performed By: #### L 3300.3500, L300.3900, L3300.6400, M100.2200, L501.9985, L400.2010, L3410.9999, L3100.7750, L501.9520, L509.6000 #### [facility] [address] [place], [address] Cholesterol in LDL [Mass/Vol] 114 mg/dL Normal 0-130 [facility] Comment on above: Order Comment: CLEAN CATCH Performed By: #### L 3300.3500, L300.3900, L3300.6400, M100.2200, L501.9985, L400.2010, L3410.9999, L3100.7750, L501.9520, L509.6000 #### [facility] [address] [place], [address] Cholesterol in VLDL [Mass/Vol] 18 mg/dL Normal 5-40 [facility] Comment on above: Order Comment: CLEAN CATCH Performed By: #### L 3300.3500, L300.3900, L3300.6400, M100.2200, L501.9985, L400.2010, L3410.9999, L3100.7750, L501.9520, L509.6000 #### [facility] [address] [place], [address] Triglyceride [Mass/Vol] 91 mg/dL Normal [facility] Comment on above: Order Comment: CLEAN CATCH Result Comment: The drugs N-Acetylcysteine and Metamizole may falsely depress this assay. Serum Triglycerides Reference Interval Normal <150 mg/dL Borderline high 150 - 199 mg/dL High 200 - 499 mg/dL Very High > or = 500 mg/dL Performed By: #### L 3300.3500, L300.3900, L3300.6400, M100.2200, L501.9985, L400.2010, L3410.9999, L3100.7750, L501.9520, L509.6000 #### [facility] [address] [place], [address] Prothrombin Time w/INRon INR Coag (PPP) [Relative time] 2.3 {INR} Normal [facility] Comment on above: Performed By: #### L 3300.3500, L300.3900, L3300.6400, M100.2200, L501.9985, L400.2010, L3410.9999, L3100.7750, L501.9520, L509.6000 #### [facility] [address] [place], [address] PT Coag (PPP) [Time] 25.3 s High 11.7-14.[address] [facility] Comment on above: Performed By: #### L 3300.3500, L300.3900, L3300.6400, M100.2200, L501.9985, L400.2010, L3410.9999, L3100.7750, L501.9520, L509.6000 #### [facility] [address] [place], [place], [id number] T4 Free Directon 03-27-2024 T4 FREE DIRECT 1.20 ng/dL Normal 0.76-1.46 [facility] Comment on above: Order Comment: CLEAN CATCH Performed By: #### L 3300.3500, L300.3900, L3300.6400, M100.2200, L501.9985, L400.2011, L3410.9999, L3100.7750, L501.9520, L509.6000 #### [facility] [address] [place], [address] Thyroid Stim Hormone (TSH)on 03-27-2024 TSH 3.100 uIU/mL Normal 0.358-3.740 [facility] Comment on above: Order Comment: CLEAN CATCH Performed By: #### L 3300.3500, L300.3900, L3300.6400, M100.2200, L501.9985, L400.2010, L3410.9999, L3100.7750, L501.9520, L509.6000 #### [facility] [address] [place], [address] Prothrombin Time w/INRon INR Coag (PPP) [Relative time] 2.9 {INR} Normal [facility] Comment on above: Performed By: #### L 3300.3500, L300.3900, L3300.6400, M100.2200, L501.9985, L400.2010, L3410.9999, L3100.7750, L501.9520, L509.6000 #### [facility] [address] [place], [address] PT Coag (PPP) [Time] 29.9 s High 11.7-14.[address] [facility] Comment on above: Performed By: #### L 3300.3500, L300.3900, L3300.6400, M100.2200, L501.9985, L400.2010, L3410.9999, L3100.7750, L501.9520, L509.6000 #### [facility] [address] [place], [address] 12 Lead EKG performed by [facility] on 02-21-2024 12 Lead EKG performed by [facility] [address] [place] [address] 12 Lead EKG performed by [facility] 02/21/24805 MR#: [id number] Acct: [id number] Name: ELIZABETH CHEATHAM Rep #: [id number] : 1935 88 From: Gurdeep [place] MD Attending Dr: Dr. Gurdeep [place] MD Status: DE P AMB Ordering Dr: Gurdeep [place] MD Date: 02/21/24 Location: [facility] Sex: F C Admitted: BMS/12 Lead EKG performed by [facility] ECG Report Interpretation S inus Bradycardia -Left axis -anterior fascicular block. Voltage criteria for LVH (R(aVL) exceeds 1.01 mV) -Voltage criteria w/o ST/T abnormality may be normal. 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 ABNORMAL Electronically signed on 02/21/2024 at 12:[address] Gurdeep [place] [employer] ([employer] Software Version 8610 02/21/24 1227 Date Gurdeep [place] MD CC: Dr. Luis M Lama DO Date Dictated: 02/21/24805 Date Transcribed: 02/21/24805 Cyber Forensics Analyst: Signed Normal [facility] Cardiology Visit Reporton Cardiology Visit Report [facility] [address] [place] [address] OFFICE VISIT Date of Service: 02/21/24 MR#: [id number] Acct: [id number] Name: ELIZABETH CHEATHAM Rep #: [id number] : 1935 Provider: Dr. Gurdeep patel MD Age/Sex: 88/F Location: [facility] Status: Signed HPI [facility] History of Present Illness Details: Ms. Cheatham, a 88 year old lady comes in today with her . She carries a history of paroxysmal atrial fibrillation status post radiofrequency ablation in 2018 at the [facility]. The patient has been hospitalized at [facility] will be loaded her with Tikosyn. She spontaneously converted from atrial fibrillation into sinus rhythm. She subsequently has discontinued that 2 weeks ago due to not feeling good on the medications. The patient has a long history detailed in my office note of January 03, 2024. Briefly the patient has bilateral normal atrial sizes she has no significant valvular heart disease and ejection fraction of 60%. The patient has been intolerant of amiodarone and metoprolol in the past due to either side effects or profound bradycardia. Currently the patient reports that she just feels antsy and jittery. Her thyroid functions are essentially normal on replacement therapy. The patient continues to complain of her loss of taste despite multiple medications switches and alterations. She is currently back on losartan and her blood pressure is well-controlled at 135/73. EKG in the office today shows sinus bradycardia at 51 bpm with a left anterior fascicular block and LVH. 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 Her daughter and were in attendance today. They both agree that she is anxious in the home environment. We discussed detail options for possible anxiety lowering meditation type treatment for her. The patient denies any nuisance bleeding and is tolerating her warfarin without incident. Last INR was 2.0 after the Tikosyn was discontinued. 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 Required: No Accompanied by: , Daughter Is patient in pain?: No Allergies enoxaparin (From Lovenox) Allergy (Verified 02/21/24 11:16) Rash Sulfa (Sulfonamide Antibiotics) Allergy (Verified 02/21/24 11:16) Hives amiodarone Adverse Reaction (Intermediate, Verified 02/21/24 11:16) Symptomatic Bradycardia amlodipine Adverse Reaction (Intermediate, Verified 02/21/24 11:16) Marked swelling in feet and ankles dofetilide Adverse Reaction (Intermediate, Verified 02/21/24 11:16) Abdominal pain and gastric burning hydrochlorothiazide Adverse Reaction (Intermediate, Verified 02/21/24 11:16) urinary incontinence/leaking Medications ???Medication ???Instructions ???Recorded ???Confirmed ???Type latanoprost 0.005 % eye drops 1 drp ophthalmic (eye) QHS eyes 09/12/16 02/21/24 History levothyroxine 75 mcg tablet 75 mcg PO DAILY hypothyroid 02/27/20 02/21/24 History warfarin 4 mg tablet 4 mg PO .COMPLEX anticoag #135 tabs 10/09/23 02/21/24 Rx gabapentin 100 mg capsule 200 mg PO QHS neuropathy 12/12/23 02/21/24 History lorazepam 0.5 mg tablet 0.5 mg PO QHS sleep 12/12/23 02/21/24 History timolol maleate 0.5 % eye drops 1 drp ophthalmic (eye) BID eye 12/12/23 02/21/24 History health vit C 250 mg-vit E 90 mg-zinc 40 1 tab PO BID eye health 12/12/23 02/21/24 History mg-copper 1 [id number] capsule (PreserVision AREDS-2) losartan 25 mg tablet 25 mg PO BID #180 tabs 01/30/24 02/21/24 Rx Ejection fraction %: 60 Have you fallen in the past year?: No PFSH Medical History Bradycardia H/O abdominal pain Difficulty balancing Pure hypercholesterolemia Essential hypertension 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 Normal [facility] Prothrombin Time w/INRon INR Coag (PPP) [Relative time] 2.0 {INR} Normal [facility] Comment on above: Performed By: #### L 3300.3500, L300.3900, L3300.6400, M100.2200, L501.9985, L400.2011, L3410.9999, L3100.7750, L501.9520, L509.6000 #### [facility] [address] [place], [address] PT Coag (PPP) [Time] 22.8 s High 11.7-14.[address] [facility] Comment on above: Performed By: #### L 3300.3500, L300.3900, L3300.6400, M100.2200, L501.9985, L400.2011, L3410.9999, L3100.7750, L501.9520, L509.6000 #### [facility] [address] [place], [place], [address] 12 Lead EKG performed by [facility] on 01-10-2024 12 Lead EKG performed by [facility] [address] [place] [address] 12 Lead EKG performed by [facility] 01/10/24 0849 MR#: [id number] Acct: [id number] Name: ELIZABETH CHEATHAM Rep #: [id number] : 1935 88 From: Gurdeep Martinez MD Attending Dr: Dr. Gurdeep Martinez MD Status: DE P AMB Ordering Dr: Gurdeep Martinez MD Date: 01/10/24 Location: [facility] Sex: F C Admitted: BMS/12 Lead EKG performed by [facility] ECG Report Interpretation M arked atrial Bradycardia P:QRS - 1:1, Abnormal P axis, H Rate 46Voltage criteria for LVH (R(I)+S(III) exceeds 2.50 mV). - Nonspecific T-abnormality. ABNORMAL Electronically signed on 01/15/2024 at 09:[address] Gurdeep [employer] Version 8610 01/15/24921 Date Gurdeep Martinez MD CC: Dr. Luis M Lama, DO Date Dictated: 01/10/24848 Date Transcribed: 01/10/24848 Cyber Forensics Analyst: Signed Normal [facility] Office Visit Reporton 2023 Office Visit Report [facility] [address] [place] [address] OFFICE VISIT Date of Service: 01/10/24 MR#: [id number] Acct: [id number] Patient: ELIZABETH CHEATHAM Rep #: [id number] : 1935 Provider: Dr. Gurdeep patel MD Age/Sex: 88/F Location: [facility] Status: Signed Intake Vital Signs 01/03/24 10:58 Height 5 ft 5 in Intake Visit Reasons: Uncontrolled AFIB Allergies enoxaparin (From Lovenox) Allergy (Verified 01/03/24 09:51) Rash Sulfa (Sulfonamide Antibiotics) Allergy (Verified 01/03/24 09:51) Hives amlodipine Adverse Reaction (Intermediate, Verified 01/03/24 09:51) Marked swelling in feet and ankles hydrochlorothiazide Adverse Reaction (Intermediate, Verified 01/03/24 09:51) urinary incontinence/leaking Have you fallen in the past year?: No Nursing Note Patient in office for EKG. EKG given to Courtney Perales to be reviewed. Patient is aware that office will call with results and recommendations later today. Assessment and Plan Assessment and Plan Orders: Orders 12 Lead EKG performed by [facility] 01/10/24 I48.0 - Paroxysmal atrial fibrillation Clinical Quality Measures Falls Risk Screening/Assistive Devices Have you fallen in the past year?: No 01/11/24 1125 Date Gurdeep Acuna Signature: Date (if applicable) CC: Normal [facility] Prothrombin Time w/INRon INR Coag (PPP) [Relative time] 2.2 {INR} Normal [facility] Comment on above: Performed By: #### L 3300.3500, L300.3900, L3300.6400, M100.2200, L501.9985, L400.2010, L3410.9999, L3100.7750, L501.9520, L509.6000 #### [facility] [address] [place], [place], [id number] PT Coag (PPP) [Time] 24.2 s High 11.7-14.[address] [facility] Comment on above: Performed By: #### L 3300.3500, L300.3900, L3300.6400, M100.2200, L501.9985, L400.2010, L3410.9999, L3100.7750, L501.9520, L509.6000 #### [facility] [address] [place], [place], [id number] T4 Free Directon 01-10-2024 T4 FREE DIRECT 1.50 ng/dL High 0.76-1.46 [facility] Comment on above: Performed By: #### L 3300.3500, L300.3900, L3300.6400, M100.2200, L501.9985, L400.2010, L3410.9999, L3100.7750, L501.9520, L509.6000 #### [facility] [address] [place], [place], [id number] Thyroid Stim Hormone (TSH)on 01-10-2024 TSH 0.899 uIU/mL Normal 0.358-3.740 [facility] Comment on above: Performed By: #### L 3300.3500, L300.3900, L3300.6400, M100.2200, L501.9985, L400.2011, L3410.9999, L3100.7750, L501.9520, L509.6000 #### [facility] [address] [place], [address] 12 Lead EKGon 01-05-2024 12 Lead EKG [facility] Cardiovascular Services [address] [place] [address] 12 Lead EKG 01/05/24 1203 MR#: [id number] Acct: [id number] Name: ELIZABETH CHEATHAM Rep #: [id number] : 1935 88 From: Scot Graham MD Attending Dr: Dr. Luis M Cortés, DO Status: D IS IN Ordering Dr: Gurdeep [place] MD Date: 01/05/24 Location: [facility] Sex: F C Admitted: 01/03/24 Test Reason : Blood Pressure : / mmHG Vent. Rate : 053 BPM Atrial Rate : 053 BPM P-R Int : 132 ms QRS Dur : 102 ms QT Int : 444 ms P-R-T Axes : 089 -46 032 degrees QTc Int : 416 ms Sinus bradycardia Left anterior fascicular block Moderate voltage criteria for LVH, may be normal variant ( R in aVL , [place] product ) Anteroseptal infarct , age undetermined Abnormal ECG When compared with ECG of 05-JAN-2024 01:04, MANUAL COMPARISON REQUIRED, DATA IS UNCONFIRMED Confirmed by SCOT GRAHAM ([id number]), content editor JAIME MARTIN ([id number]) on 01/06/2024 6:06:57 AM Referred By: Luis M Cortés Confirmed By:SCOT GRAHAM 01/06/24 0607 Date Scot Graham MD CC: Dr. Luis M Lama DO; Dr. Luis M Cortés DO; Dr. Gurdeep [place] MD Signed Normal [facility] 12 Lead EKG [facility] Cardiovascular Services [address] [facility] [place] [place] [address] 12 Lead EKG 01/05/24 0104 MR#: [id number] Acct: [id number] Name: ELIZABETH CHEATHAM Rep #: [id number] : 1935 88 From: Scot Graham MD Attending Dr: Dr. Luis M Cortés DO Status: D IS IN Ordering Dr: Gurdeep [place] MD Date: 01/05/24 Location: [facility] Sex: F C Admitted: 01/03/24 Test Reason : TIMED Blood Pressure : / mmHG Vent. Rate : 054 BPM Atrial Rate : 054 BPM P-R Int : 156 ms QRS Dur : 102 ms QT Int : 460 ms P-R-T Axes : 083 -54 036 degrees QTc Int : 436 ms Sinus bradycardia Pulmonary disease pattern Left anterior fascicular block Minimal voltage criteria for LVH, may be normal variant ( Jim product ) Septal infarct , age undetermined Abnormal ECG When compared with ECG of 04-JAN-2024 12:07, MANUAL COMPARISON REQUIRED, DATA IS UNCONFIRMED Confirmed by SCOT GRAHAM ([id number]), content editor JAIME MARTIN ([id number]) on 01/06/2024 6:06:50 AM Referred By: Luis M Cortés Confirmed By:SCOT GRAHAM 01/06/24 0606 Date Scot Graham MD CC: Dr. Luis M Lama DO; Dr. Luis M Cortés DO; Dr. Gurdeep [place] MD Signed [facility] Discharge Instructionon 12-08 Discharge Instruction [facility] Medical Records Department [address] [place] [address] Instructions for Home/Discharge Instructions 01/05/24 1233 MR#: [id number] Acct: [id number] Name: ELIZABETH CHEATHAM Rep #: [id number] : 1935 88 From: Luis M Cortés DO PCP: Dr. Luis M Lama DO Status:ADM IN Discharge Instructions Diet Discharge Diet: No restrictions Activity Discharge Activity: Return to Normal Activity Weight Bearing Status: Full weight bearing Follow Up Care Test Results: Test results from this visit will be discussed in further detail at your follow-up appointment, if applicable. Discharge Plan Admission Admit Date/Time: 01/03/24 11:34 Primary Reason for Your Visit: a-fib with bradycardia Attending Provider: Luis M Cortés Primary Care Provider: Luis M Lama Consulting Providers: Gurdeep [place] Instructions Additional Instructions / Restrictions: You may need to use metoprolol as before if heart rate increases and is atrial fibrillation Discharge Orders/Prescriptions Prescriptions: New dofetilide 125 mcg Capsule 125 mcg PO Q12 Qty: 60 0RF Continued PreserVision AREDS-2 250-90-40-1 mg capsule 1 tab PO BID lorazepam 0.5 mg tablet 0.5 mg PO QHS Patient Comments: [NO ORIGINAL SIG] gabapentin 100 mg capsule 200 mg PO QHS Patient Comments: [NO ORIGINAL SIG] timolol maleate 0.5 % drops 1 drp ophthalmic (eye) BID Patient Comments: [NO ORIGINAL SIG] latanoprost 1 DROP bottle 1 drp ophthalmic (eye) QHS levothyroxine 75 mcg tablet 75 mcg PO DAILY Rx Instructions: 1/2 tab on monday warfarin 4 mg tablet 4 mg PO .COMPLEX Qty: 135 3RF Protocol: Dose Management Condition: Monday Dose/Route: 4 mg Instruction: 1 x 4 mg tablet Condition: Monday Dose/Route: 4 mg Instruction: 1 x 4 mg tablet Condition: Monday Dose/Route: 4 mg Instruction: 1 x 4 mg tablet Condition: Monday Dose/Route: 4 mg Instruction: 1 x 4 mg tablet Condition: Dose/Route: 4 mg Instruction: 1 x 4 mg tablet Condition: Monday Dose/Route: 4 mg Instruction: 1 x 4 mg tablet Condition: Monday Dose/Route: 4 mg Instruction: 1 x 4 mg tablet Protocol Text: Adjustment Start Date: Monday12/25/23 INR Value: 2.3 INR Date: 12/25/23 Recheck Date: 01/24/24 Patient Comments: Pt taking 4mg daily Rx Instructions: 2mg Mon/Mon, 6mg , 4mg Mon//Mon/Mon, or as discussed for a 90 day supply doxazosin 2 mg tablet 2 mg PO QHS Qty: 30 3RF Discontinued metoprolol tartrate 50 mg tablet 50 mg PO DAILY Qty: 30 1RF Referrals / Follow Up: Gurdeep [place] MD [Med Staff - Active Staff] - See Referral Note (Next Monday or Monday-you will need an EKG at the office, schedule a follow-up appointment with at that time) Luis M Lama DO [Primary Care Provider] - Disposition Disposition (needs filled in before D/C Order can be placed): Home, Self Care 01/05/24 1238 Luis M Cortés DO CC: Dr. Luis M Lama DO; Dr. Gurdeep [place] MD Signed [facility] 12 Lead EKGon 01-04-2024 12 Lead EKG [facility] Cardiovascular Services [address] [place] [address] 12 Lead EKG 01/04/24 0051 MR#: [id number] Acct: [id number] Name: ELIZABETH CHEATHAM Rep #: [id number] : 1935 88 From: Gurdeep [place] MD Attending Dr: Dr. Luis M Cortés DO Status: A DM IN Ordering Dr: Gurdeep [place] MD Date: 01/04/24 Location: [facility] Sex: F C Admitted: 01/03/24 Test Reason : TIMED Blood Pressure : / mmHG Vent. Rate : 054 BPM Atrial Rate : 054 BPM P-R Int : 146 ms QRS Dur : 106 ms QT Int : 482 ms P-R-T Axes : 077 -54 033 degrees QTc Int : 457 ms Sinus bradycardia Left axis deviation Minimal voltage criteria for LVH, may be normal variant ( Jim product ) Septal infarct , age undetermined Abnormal ECG When compared with ECG of 03-JAN-2024 16:07, MANUAL COMPARISON REQUIRED, DATA IS UNCONFIRMED Confirmed by Gurdeep [place] ([id number]), content editor TARA BAE ([id number]) on 01/05/2024 6:35:21 AM Referred By: Luis M Cortés Confirmed By:Gurdeep [place] 01/05/24 0635 Date Gurdeep [place] MD CC: Dr. Luis M Lama DO; Dr. Luis M Cortés DO; Dr. Gurdeep [place] MD Signed [facility] 12 Lead EKG [facility] Cardiovascular Services [address] [place] [address] 12 Lead EKG 01/04/24 1207 MR#: [id number] Acct: [id number] Name: ELIZABETH CHEATHAM Rep #: [id number] : 1935 88 From: Gurdeep [place] MD Attending Dr: Dr. Luis M Cortés DO Status: A DM IN Ordering Dr: Gurdeep [place] MD Date: 01/04/24 Location: [facility] Sex: F C Admitted: 01/03/24 Test Reason : TIKOSYN Blood Pressure : / mmHG Vent. Rate : 050 BPM Atrial Rate : 050 BPM P-R Int : 124 ms QRS Dur : 102 ms QT Int : 462 ms P-R-T Axes : 057 -47 020 degrees QTc Int : 421 ms Sinus bradycardia Left anterior fascicular block Moderate voltage criteria for LVH, may be normal variant ( R in aVL , Jim product ) Septal infarct , age undetermined Abnormal ECG Confirmed by Gurdeep [place] ([id number]), content editor TARA BAE ([id number]) on 01/05/2024 6:32:59 AM Referred By: Luis M Cortés Confirmed By:Gurdeep [place] 01/05/24 0633 Date Gurdeep [place] MD CC: Dr. Luis M Lama DO; Dr. Luis M Cortés DO; Dr. Gurdeep [place] MD Signed [facility] Basic Metabolic Profile (BMP )on 01-04-2024 BUN/CRE 26.8 RATIO High 10-20 [facility] Comment on above: Performed By: #### L 3300.3500, L300.3900, L3300.6400, M100.2200, L501.9985, L400.2011, L3410.9999, L3100.7750, L501.9520, L509.6000 #### [facility] [address] [place], [address] CA,Total 8.9 mg/dL Normal 8.5-10.1 [facility] Comment on above: Performed By: #### L 3300.3500, L300.3900, L3300.6400, M100.2200, L501.9985, L400.2011, L3410.9999, L3100.7750, L501.9520, L509.6000 #### [facility] [address] [place], [address] Chloride [Moles/Vol] 109 mmol/L High 98-[address] [facility] Comment on above: Performed By: #### L 3300.3500, L300.3900, L3300.6400, M100.2200, L501.9985, L400.2010, L3410.9999, L3100.7750, L501.9520, L509.6000 #### [facility] [address] [place], [address] CO2 [Moles/Vol] 28.0 mmol/L Normal 21.0-32.0 [facility] Comment on above: Performed By: #### L 3300.3500, L300.3900, L3300.6400, M100.2200, L501.9985, L400.2010, L3410.9999, L3100.7750, L501.9520, L509.6000 #### [facility] [address] [place], [address] Creatinine [Mass/Vol] 0.82 mg/dL Normal 0.55-1.02 [facility] Comment on above: Result Comment: The validity of the calculated GFR GFRAA in patients over 70 years has not been determined. Clinical correlation is essential. Performed By: #### L 3300.3500, L300.3900, L3300.6400, M100.2200, L501.9985, L400.2011, L3410.9999, L3100.7750, L501.9520, L509.6000 #### [facility] [address] [place], [address] ECRCL 48.14 ml/min Normal [facility] Comment on above: Performed By: #### L 3300.3500, L300.3900, L3300.6400, M100.2200, L501.9985, L400.2011, L3410.9999, L3100.7750, L501.9520, L509.6000 #### [facility] [address] [place], [address] EST GFR - AA 85 mL/min Normal >60 [facility] Comment on above: Result Comment: Afri can Congolese GFR Calc Performed By: #### L 3300.3500, L300.3900, L3300.6400, M100.2200, L501.9985, L400.2010, L3410.9999, L3100.7750, L501.9520, L509.6000 #### [facility] [address] [place], [address] GAP 4 Low 5-15 [facility] Comment on above: Performed By: #### L 3300.3500, L300.3900, L3300.6400, M100.2200, L501.9985, L400.2010, L3410.9999, L3100.7750, L501.9520, L509.6000 #### [facility] [address] [place], [place], [id number] (991) GFR/1.73 sq M.predicted among non-blacks MDRD (S/P/Bld) [Vol rate/Area] 70 mL/min/{1.73_m2} Normal >60 [facility] Comment on above: Result Comment: Non- GFR Calc Performed By: #### L 3300.3500, L300.3900, L3300.6400, M100.2200, L501.9985, L400.2010, L3410.9999, L3100.7750, L501.9520, L509.6000 #### [facility] [address] [place], [address] Glucose [Mass/Vol] 86 mg/dL Normal 74-106 [facility] Comment on above: Performed By: #### L 3300.3500, L300.3900, L3300.6400, M100.2200, L501.9985, L400.2010, L3410.9999, L3100.7750, L501.9520, L509.6000 #### [facility] [address] [place], [address] Potassium [Moles/Vol] 4.0 mmol/L Normal 3.5-5.1 [facility] Comment on above: Performed By: #### L 3300.3500, L300.3900, L3300.6400, M100.2200, L501.9985, L400.2010, L3410.9999, L3100.7750, L501.9520, L509.6000 #### [facility] [address] [place], [address] Sodium [Moles/Vol] 141 mmol/L Normal 136-145 [facility] Comment on above: Performed By: #### L 3300.3500, L300.3900, L3300.6400, M100.2200, L501.9985, L400.2010, L3410.9999, L3100.7750, L501.9520, L509.6000 #### [facility] [address] [place], [address] Urea nitrogen [Mass/Vol] 22 mg/dL High 7-18 [facility] Comment on above: Performed By: #### L 3300.3500, L300.3900, L3300.6400, M100.2200, L501.9985, L400.2011, L3410.9999, L3100.7750, L501.9520, L509.6000 #### [facility] [address] [place], [address] Prothrombin Time w/INRon INR Normal [facility] Comment on above: Result Comment: Canc ellhiginio via OM: MD Ordered Performed By: #### L 3300.3500, L300.3900, L3300.6400, M100.2200, L501.9985, L400.2011, L3410.9999, L3100.7750, L501.9520, L509.6000 #### [facility] [address] [place], [address] PROTIME Normal 11.7-14.9 [facility] Comment on above: Result Comment: Canstiven garcía via OM: MD Ordered Performed By: #### L 3300.3500, L300.3900, L3300.6400, M100.2200, L501.9985, L400.2011, L3410.9999, L3100.7750, L501.9520, L509.6000 #### [facility] [address] [place], [address] 12 Lead EKG performed by [facility] on 01-03-2024 12 Lead EKG performed by [facility] [address] [place] [address] 12 Lead EKG performed by [facility] 01/03/24 0840 MR#: [id number] Acct: [id number] Name: ELIZABETH CHEATHAM Rep #: [id number] : 1935 88 From: Gurdeep [place] MD Attending Dr: Dr. Gurdeep [place] MD Status: DE P AMB Ordering Dr: Gurdeep [place] MD Date: 01/03/24 Location: [facility] Sex: F C Admitted: BMS/12 Lead EKG performed by [facility] ECG Report Interpretation A trial fibrillation Voltage criteria for LVH (R(I)+S(III) exceeds 2.50 mV) -Voltage criteria w/o ST/T abnormality may be normal. ELECT[employer] SPECIALIST old septal MA - Nonspecific T-abnormality. ABNORMAL Electronically signed on 01/03/2024 at 12:[address] Gurdeep [place] [employer] Version 8610 01/03/24 1221 Date Gurdeep [place] MD CC: Dr. Luis M Lama, DO Date Dictated: 01/03/24839 Date Transcribed: 01/03/24839 Cyber Forensics Analyst: Signed Normal [facility] CBC W/Diff, Automatedon 12-07 Absolute Lymph 1.16 X10 3/uL Normal 0.83-4.51 [facility] Comment on above: Performed By: #### L 3300.3500, L300.3900, L3300.6400, M100.2200, L501.9985, L400.2010, L3410.9999, L3100.7750, L501.9520, L509.6000 #### [facility] [address] [place], [address] Absolute Neut 2.3 X10 3/uL Normal 2.0-7.7 [facility] Comment on above: Performed By: #### L 3300.3500, L300.3900, L3300.6400, M100.2200, L501.9985, L400.2010, L3410.9999, L3100.7750, L501.9520, L509.6000 #### [facility] [address] [place], [address] Basophils/100 WBC (Bld) 0.5 % Normal 0-1 [facility] Comment on above: Performed By: #### L 3300.3500, L300.3900, L3300.6400, M100.2200, L501.9985, L400.2010, L3410.9999, L3100.7750, L501.9520, L509.6000 #### [facility] [address] [place], [address] Eosinophils/100 WBC (Bld) 0.8 % Normal 0-5 [facility] Comment on above: Performed By: #### L 3300.3500, L300.3900, L3300.6400, M100.2200, L501.9985, L400.2010, L3410.9999, L3100.7750, L501.9520, L509.6000 #### [facility] [address] [place], [address] Erythrocyte distribution width (RBC) [Ratio] 13.2 % Normal 11.6-14.6 [facility] Comment on above: Performed By: #### L 3300.3500, L300.3900, L3300.6400, M100.2200, L501.9985, L400.2010, L3410.9999, L3100.7750, L501.9520, L509.6000 #### [facility] [address] [place], [address] Hematocrit (Bld) [Volume fraction] 34.8 % Low 37-47 [facility] Comment on above: Performed By: #### L 3300.3500, L300.3900, L3300.6400, M100.2200, L501.9985, L400.2010, L3410.9999, L3100.7750, L501.9520, L509.6000 #### [facility] [address] [place], [address] Hemoglobin (Bld) [Mass/Vol] 11.3 g/dL Low 12.0-15.0 [facility] Comment on above: Performed By: #### L 3300.3500, L300.3900, L3300.6400, M100.2200, L501.9985, L400.2010, L3410.9999, L3100.7750, L501.9520, L509.6000 #### [facility] [address] [place], [address] IG% 0.300 Normal 0.0-0.9 [facility] Comment on above: Result Comment: IG% - Immature Granulocytes (promyelocytes, myelocytes and metamyelocytes) > 1% indicates that a LEFT SHIFT is Present. Performed By: #### L 3300.3500, L300.3900, L3300.6400, M100.2200, L501.9985, L400.2010, L3410.9999, L3100.7750, L501.9520, L509.6000 #### [facility] [address] [place], [address] Lymphocytes/100 WBC (Bld) 29.4 % Normal 19-41 [facility] Comment on above: Performed By: #### L 3300.3500, L300.3900, L3300.6400, M100.2200, L501.9985, L400.2010, L3410.9999, L3100.7750, L501.9520, L509.6000 #### [facility] [address] [place], [address] MCH (RBC) [Entitic mass] 31.4 pg Normal 27.0-32.0 [facility] Comment on above: Performed By: #### L 3300.3500, L300.3900, L3300.6400, M100.2200, L501.9985, L400.2010, L3410.9999, L3100.7750, L501.9520, L509.6000 #### [facility] [address] [place], [address] MCHC (RBC) [Mass/Vol] 32.5 g/dL Normal 32-36 [facility] Comment on above: Performed By: #### L 3300.3500, L300.3900, L3300.6400, M100.2200, L501.9985, L400.2011, L3410.9999, L3100.7750, L501.9520, L509.6000 #### [facility] [address] [place], [address] MCV (RBC) [Entitic vol] 96.7 fL Normal 81-99 [facility] Comment on above: Performed By: #### L 3300.3500, L300.3900, L3300.6400, M100.2200, L501.9985, L400.2011, L3410.9999, L3100.7750, L501.9520, L509.6000 #### [facility] [address] [place], [address] Monocytes/100 WBC (Bld) 9.6 % Normal 0-10 [facility] Comment on above: Performed By: #### L 3300.3500, L300.3900, L3300.6400, M100.2200, L501.9985, L400.2010, L3410.9999, L3100.7750, L501.9520, L509.6000 #### [facility] [address] [place], [address] Neutrophils/100 WBC (Bld) 59.4 % Normal 47-70 [facility] Comment on above: Performed By: #### L 3300.3500, L300.3900, L3300.6400, M100.2200, L501.9985, L400.2010, L3410.9999, L3100.7750, L501.9520, L509.6000 #### [facility] [address] [place], [address] Nucleated RBC (Bld) [#/Vol] 0 10*3/uL Normal 0-5 [facility] Comment on above: Performed By: #### L 3300.3500, L300.3900, L3300.6400, M100.2200, L501.9985, L400.2011, L3410.9999, L3100.7750, L501.9520, L509.6000 #### [facility] [address] [place], [address] Platelet mean volume (Bld) [Entitic vol] 9.7 fL Normal 6.2-12.0 [facility] Comment on above: Performed By: #### L 3300.3500, L300.3900, L3300.6400, M100.2200, L501.9985, L400.2010, L3410.9999, L3100.7750, L501.9520, L509.6000 #### [facility] [address] [place], [place], [address] (734) Platelets (Bld) [#/Vol] 187 10*3/uL Normal 150-450 [facility] Comment on above: Performed By: #### L 3300.3500, L300.3900, L3300.6400, M100.2200, L501.9985, L400.2010, L3410.9999, L3100.7750, L501.9520, L509.6000 #### [facility] [address] [place], [place], [address] (847) RBC (Bld) [#/Vol] 3.60 10*6/uL Low 4.2-5.4 [facility] Comment on above: Performed By: #### L 3300.3500, L300.3900, L3300.6400, M100.2200, L501.9985, L400.2010, L3410.9999, L3100.7750, L501.9520, L509.6000 #### [facility] [address] [place], [address] RDW SD 47.4 fl High 35.1-43.9 [facility] Comment on above: Performed By: #### L 3300.3500, L300.3900, L3300.6400, M100.2200, L501.9985, L400.2011, L3410.9999, L3100.7750, L501.9520, L509.6000 #### [facility] [address] [place], [address] WBC (Bld) [#/Vol] 3.9 10*3/uL Low 4.4-11.0 [facility] Comment on above: Performed By: #### L 3300.3500, L300.3900, L3300.6400, M100.2200, L501.9985, L400.2011, L3410.9999, L3100.7750, L501.9520, L509.6000 #### [facility] [address] [place], [address] Cardiology Visit Reporton Cardiology Visit Report [facility] [address] [place], [place] [address] OFFICE VISIT Date of Service: 01/03/24 MR#: [id number] Acct: [id number] Name: ELIZABETH CHEATHAM Rep #: [id number] : 1935 Provider: Dr. Gurdeep patel MD Age/Sex: 88/F Location: [facility] Status: Signed [facility] History of Present Illness Details: Ms. Cheatham, a 88 year old lady comes in today with her . She carries a history of paroxysmal atrial fibrillation status post radiofrequency ablation in 2018 at the [facility]. The patient called me last night reporting that she had felt bad and checked her [employer] mobile device and found out that she was in atrial fibrillation with a heart rate of 98 bpm. This is a first time she is known to be in atrial fibrillation for quite some time. She could not even find back in her medical diary where she the last time she was in atrial fibs. She took her blood pressure at home it was 166/104 with a heart rate of 97 on her device. Last night I gave her 50 mg of metoprolol in her home environment and her heart rate this morning when she comes to the office is 76 on her EKG. She remains in atrial fibrillation with a controlled ventricular response and an EKG consistent with LVH and cannot rule out an old septal infarct. As noted below she does not have any evidence of an old infarct on her echocardiogram done June 2023. Both atria are of normal size. She has no significant structural heart disease. We discu ssed treatment options and decided that given her creatinine clearance of 54 we will admit her to the hospital for Tikosyn loading. Will load her with 250 mg twice daily we will recheck her BMP as the last one was checked in June. Blood pressure in the office today was 125/74. Patient just complains of feeling terrible being nauseated but has not vomited. Significant cardiovascular past medical history: the patient had been on amiodarone for several years. Her heart rate was in the 35 to 40 bpm range so we decided to discontinue the amiodarone and put her on metoprolol 50 mg twice daily in June 2023.. Her blood pressure was fine but her heart rate was in the mid 30s. Her metoprolol was decreased to 25 mg twice daily and her heart rate remained 36 in the office at her last office visit. Metoprolol was discontinued at that time. She is well aware when she goes into atrial fibrillation and has a [employer] mobile device that she can document it. Her echocardiogram from 06/28/2023 which showed normal ejection fraction of 60% with stage II diastolic dysfunction. RV was normal PA pressure was 38. There was trivial mitral and tricuspid regurgitation. There was aortic valve thickening but no stenosis. Both atria were normal size. Patient and patient daughter contacted our office on 12/04/2023 with concerns that patient lost her appetite due to loss of taste and smell. It was noted be concerning that patient was on an JOSE LUIS inhibitor/ARB that may be contributing. She had tested negative for COVID. She discontinued Flonase and no change. The patient was started on doxazosin for blood pressure control at that time. She continues to complain of a loss of smell and taste without any changes being off the presumed offending medications for at least 2 weeks now. Intake Vital Signs 12/12/23 09:55 01/03/24 09:51 Height 5 ft 5 in 5 ft 5 in Weight: 156 lb 150 lb BMI 25.9 25.0 BP 132/68 H 125/74 H Blood Pressure Location Lt brachial Lt brachial Position Sitting Sitting Respiration 16 18 Pulse 52 L 70 Pulse Source NIBP Monitor Pulse Oximetry (%) 97 Oxygen Delivery Method room air Intake Visit Reasons: See Clinical Note [employer] Youth Supervisor Required: No Accompanied by: Is patient in pain?: No Allergies enoxaparin (From Lovenox) Allergy (Verified 01/03/24 09:51) Rash Sulfa (Sulfonamide Antibiotics) Allergy (Verified 01/03/24 09:51) Hives amlodipine Adverse Reaction (Intermediate, Verified 01/03/24 09:51) Marked swelling in feet and ankles hydrochlorothiazide Adverse Reaction (Intermediate, Verified 01/03/24 09:51) urinary incontinence/leaking Medications ???Medication ???Instructions ???Recorded ???Confirmed ???Type latanoprost 0.005 % eye drops 1 drp QHS 09/12/16 01/03/24 History levothyroxine 75 mcg tablet 75 mcg PO DAILY 02/27/20 01/03/24 History warfarin 4 mg tablet 4 mg PO .COMPLEX #135 tabs 10/09/23 01/03/24 Rx gabapentin 100 mg capsule 200 mg PO QHS 12/12/23 01/03/24 History lorazepam 0.5 mg tablet 0.5 mg PO QHS 12/12/23 01/03/24 History timolol maleate 0.5 % eye drops 1 drp ophthalmic (eye) BID 12/12/23 01/03/24 History vit C 250 mg-vit E 90 mg-zinc 40 1 tab PO BID 12/12/23 01/03/24 History mg-copper 1 jc-nexonf-rmicbh capsule (PreserVision AREDS-2) doxazosin 2 mg tablet 2 mg PO QHS (more content not included)... Normal [facility] Metabolic Prof yvan 01-03-2024 Albumin [Mass/Vol] 3.5 g/dL Normal 3.2-5.0 [facility] Comment on above: Performed By: #### L 3300.3500, L300.3900, L3300.6400, M100.2200, L501.9985, L400.2011, L3410.9999, L3100.7750, L501.9520, L509.6000 #### [facility] [address] [place], [address] Albumin/Globulin [Mass ratio] 1.2 {ratio} Normal 0.9-2.4 [facility] Comment on above: Performed By: #### L 3300.3500, L300.3900, L3300.6400, M100.2200, L501.9985, L400.2011, L3410.9999, L3100.7750, L501.9520, L509.6000 #### [facility] [address] [place], [address] ALK P 78 U/L Normal 45-117 [facility] Comment on above: Performed By: #### L 3300.3500, L300.3900, L3300.6400, M100.2200, L501.9985, L400.2010, L3410.9999, L3100.7750, L501.9520, L509.6000 #### [facility] [address] [place], [address] ALT [Catalytic activity/Vol] 12 U/L Low 13-56 [facility] Comment on above: Performed By: #### L 3300.3500, L300.3900, L3300.6400, M100.2200, L501.9985, L400.2010, L3410.9999, L3100.7750, L501.9520, L509.6000 #### [facility] [address] [place], [place], [id number] [phone] [Catalytic activity/Vol] 18 U/L Normal 15-37 [facility] Comment on above: Performed By: #### L 3300.3500, L300.3900, L3300.6400, M100.2200, L501.9985, L400.2010, L3410.9999, L3100.7750, L501.9520, L509.6000 #### [facility] [address] [place], [address] Bilirubin [Mass/Vol] 0.30 mg/dL Normal 0.20-1.[address] [facility] Comment on above: Result Comment: For patients on eltrombopag therapy, use of Dimension Galvin TBIL is not recommended. Performed By: #### L 3300.3500, L300.3900, L3300.6400, M100.2200, L501.9985, L400.2010, L3410.9999, L3100.7750, L501.9520, L509.6000 #### [facility] [address] [place], [address] BUN/CRE 21.2 RATIO High 10-20 [facility] Comment on above: Performed By: #### L 3300.3500, L300.3900, L3300.6400, M100.2200, L501.9985, L400.2010, L3410.9999, L3100.7750, L501.9520, L509.6000 #### [facility] [address] [place], [address] CA,Total 9.3 mg/dL Normal 8.5-10.1 [facility] Comment on above: Performed By: #### L 3300.3500, L300.3900, L3300.6400, M100.2200, L501.9985, L400.2010, L3410.9999, L3100.7750, L501.9520, L509.6000 #### [facility] [address] [place], [address] Chloride [Moles/Vol] 106 mmol/L Normal 98-[address] [facility] Comment on above: Performed By: #### L 3300.3500, L300.3900, L3300.6400, M100.2200, L501.9985, L400.2010, L3410.9999, L3100.7750, L501.9520, L509.6000 #### [facility] [address] [place], [address] CO2 [Moles/Vol] 29.0 mmol/L Normal 21.0-32.0 [facility] Comment on above: Performed By: #### L 3300.3500, L300.3900, L3300.6400, M100.2200, L501.9985, L400.2011, L3410.9999, L3100.7750, L501.9520, L509.6000 #### [facility] [address] [place], [address] Creatinine [Mass/Vol] 0.85 mg/dL Normal 0.55-1.02 [facility] Comment on above: Result Comment: The validity of the calculated GFR GFRAA in patients over 70 years has not been determined. Clinical correlation is essential. Performed By: #### L 3300.3500, L300.3900, L3300.6400, M100.2200, L501.9985, L400.2010, L3410.9999, L3100.7750, L501.9520, L509.6000 #### [facility] [address] [place], [address] ECRCL 46.44 ml/min Normal [facility] Comment on above: Performed By: #### L 3300.3500, L300.3900, L3300.6400, M100.2200, L501.9985, L400.2010, L3410.9999, L3100.7750, L501.9520, L509.6000 #### [facility] [address] [place], [address] EST GFR - AA 82 mL/min Normal >60 [facility] Comment on above: Result Comment: Afri can Congolese GFR Calc Performed By: #### L 3300.3500, L300.3900, L3300.6400, M100.2200, L501.9985, L400.2011, L3410.9999, L3100.7750, L501.9520, L509.6000 #### [facility] [address] [place], [address] GAP 4 Low 5-15 [facility] Comment on above: Performed By: #### L 3300.3500, L300.3900, L3300.6400, M100.2200, L501.9985, L400.2011, L3410.9999, L3100.7750, L501.9520, L509.6000 #### [facility] [address] [place], [address] GFR/1.73 sq M.predicted among non-blacks MDRD (S/P/Bld) [Vol rate/Area] 67 mL/min/{1.73_m2} Normal >60 [facility] Comment on above: Result Comment: Non- GFR Calc Performed By: #### L 3300.3500, L300.3900, L3300.6400, M100.2200, L501.9985, L400.2010, L3410.9999, L3100.7750, L501.9520, L509.6000 #### [facility] [address] [place], [address] Globulin (S) [Mass/Vol] 3.0 g/dL Normal 2.2-4.2 [facility] Comment on above: Performed By: #### L 3300.3500, L300.3900, L3300.6400, M100.2200, L501.9985, L400.2010, L3410.9999, L3100.7750, L501.9520, L509.6000 #### [facility] [address] [place], [address] Glucose [Mass/Vol] 100 mg/dL Normal 74-106 [facility] Comment on above: Result Comment: Fast ing Glucose result from 100 to 125 mg/dL suggests IMPAIRED HOMEOSTASIS per A.D.A. criteria. Performed By: #### L 3300.3500, L300.3900, L3300.6400, M100.2200, L501.9985, L400.2010, L3410.9999, L3100.7750, L501.9520, L509.6000 #### [facility] [address] [place], [address] Potassium [Moles/Vol] 4.3 mmol/L Normal 3.5-5.1 [facility] Comment on above: Performed By: #### L 3300.3500, L300.3900, L3300.6400, M100.2200, L501.9985, L400.2010, L3410.9999, L3100.7750, L501.9520, L509.6000 #### [facility] [address] [place], [address] Sodium [Moles/Vol] 139 mmol/L Normal 136-145 [facility] Comment on above: Performed By: #### L 3300.3500, L300.3900, L3300.6400, M100.2200, L501.9985, L400.2010, L3410.9999, L3100.7750, L501.9520, L509.6000 #### [facility] [address] [place], [address] T PROT 6.5 g/dL Normal 6.4-8.2 [facility] Comment on above: Performed By: #### L 3300.3500, L300.3900, L3300.6400, M100.2200, L501.9985, L400.2010, L3410.9999, L3100.7750, L501.9520, L509.6000 #### [facility] [address] [place], [address] Urea nitrogen [Mass/Vol] 18 mg/dL Normal 7-18 [facility] Comment on above: Performed By: #### L 3300.3500, L300.3900, L3300.6400, M100.2200, L501.9985, L400.2011, L3410.9999, L3100.7750, L501.9520, L509.6000 #### [facility] [address] [place], [address] Consultation - Cardiologyon 01-03-2024 Consultation - Cardiology [facility] Medical Records Department [address] [place] [address] Consultation - Cardiology 01/03/24 1551 MR#: [id number] Acct: [id number] Name: ELIZABETH CHEATHAM Rep #: [id number] : 1935 88 From: Gurdeep Martinez MD PCP: Dr. Luis M Lama, DO Status:ADM IN Location: [place] [address] Assessment Plan Assessment/Plan (1) Paroxysmal A-fib: PLAN: Please see my office note from today for detailed plans and recommendations. I placed a hardcopy in the patient's chart on the floor as well as is already in the EMR. HPI Consult Data Date of Consult: 01/03/24 HPI Narrative HPI Narrative: ELIZABETH CHEATHAM, is a 88 F who presents with recurrent paroxysmal atrial fibrillation. She actually cardioverted in route to her room from registration. The patient will be admitted for Tikosyn loading. Please see my office note from today's visit for detailed examination and plans. [facility] Medical History H/O abdominal pain Difficulty balancing Pure hypercholesterolemia Essential hypertension Family history of colon cancer in mother FPC current use of 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 LETICIA (obstructive sleep apnea) Palpitations Supraventricular tachycardia Chest pain, unspecified GERD (gastroesophageal reflux disease) Family history of premature coronary heart disease Patent foramen ovale Peripheral neuropathy Long-term use of high-risk medication Nonsustained ventricular tachycardia Excessive sleepiness Paroxysmal A-fib Snoring Obstructive sleep apnea Home Medications ???Medication ???Instructions ???Recorded ???Last Taken ???Type latanoprost 0.005 % eye drops 1 drp ophthalmic (eye) QHS eyes 09/12/16 Unknown History levothyroxine 75 mcg tablet 75 mcg PO DAILY hypothyroid 02/27/20 Unknown History warfarin 4 mg tablet 4 mg PO .COMPLEX anticoag #135 tabs 10/09/23 Unknown Rx gabapentin 100 mg capsule 200 mg PO QHS neuropathy 12/12/23 Unknown History lorazepam 0.5 mg tablet 0.5 mg PO QHS sleep 12/12/23 Unknown History timolol maleate 0.5 % eye drops 1 drp ophthalmic (eye) BID eye 12/12/23 Unknown History health vit C 250 mg-vit E 90 mg-zinc 40 1 tab PO BID eye health 12/12/23 Unknown History mg-copper 1 bi-pmgeuw-yfxczr capsule (PreserVision AREDS-2) doxazosin 2 mg tablet 2 mg PO QHS #30 tabs 12/19/23 Unknown Rx metoprolol tartrate 50 mg tablet 50 mg PO DAILY heart rate #30 tabs 01/02/24 Unknown Rx Allergy/AdvReac Type Severity Reaction Status Date / Time enoxaparin (From Lovenox) Allergy Rash Verified 01/03/24 09:51 Sulfa (Sulfonamide Allergy Hives Verified 01/03/24 09:51 Antibiotics) amlodipine AdvReac Intermediate Marked Verified 01/03/24 09:51 swelling in feet and ankles hydrochlorothiazide AdvReac Intermediate urinary Verified 01/03/24 09:51 incontinence/leaking Family History Mother Cancer Colon Diabetes Sister CAD (coronary artery disease) Heart disease Diabetes Son Kidney disease Surgical History Hx of colonoscopy with polypectomy ( 2018) History of radiofrequency ablation procedure for cardiac arrhythmia ( 08/17/17) Tooth disorder S/P arthroscopic surgery of left knee History of total right knee replacement S/P excision of lipoma H/O section S/P appendectomy S/P lateral meniscal repair H/O: hysterectomy Social History Smoking Status: Former smoker second hand exposure: No alcohol intake: never substance use type: does not use caffeine: No what type of physical activity do you participate in: other details: stationary bike frequency: daily seatbelt use: always do you feel safe at home: Yes Risk Stratification Risk Stratification Applicable: No Objective Data Vital Signs: Vital Signs Temp Pulse Resp BP Pulse Ox O2 Del Method 97.9 F 54 L 17 128/85 H 100 Room Air 01/03/24 11:02 01/03/24 11:02 01/03/24 11:02 01/03/24 11:02 01/03/24 11:02 01/03/24 11:15 Oxygen Delivery Method Room Air Weight: 152 lb 12.485 oz Body Mass Index (BMI) 25.4 Lab / Micro Data 01/03/24 12:36 01/03/24 12:36 Labs: Laboratory Results - last 24 hr 01/03/24 12:36: WBC 3.9 L, RBC 3.60 L, Hgb 11.3 L, Hct 34.8 L, MCV 96.7, MCH 31.4, MCHC 32.5, RDW Std Deviation 47.4 H, RDW Coeff of Corbin 13.2, Plt Count 187, MPV 9.7, Immature Gran % (Auto) 0.300, Neut % (Auto) 59.4, Lymph % (Auto) 29.4, [place] % (Auto) 9.6, Eos % (Auto) 0.8, Baso % (Auto) 0.5, Absolute Neuts (auto) 2.3, Absolute Lymphs (auto) 1.16, Nucleated RBC % 0, PT 23.7 H, INR 2.1, Sodium 139, Potassium 4.3, Chloride 106, Carbon Dioxide 29.0, Anion Gap 4 L, BUN 18, Creatinine 0.85, Estim Creat Carline (more content not included)... Normal [facility] H AND P Exam - Hospitaliston 01-03-2024 H&P Exam - Hospitalist [facility] Medical Records Department [address] [place] [address] H P Exam - Hospitalist 01/03/24 1814 MR#: [id number] Acct: [id number] Name: ELIZABETH CHEATHAM Rep #: [id number] : 1935 88 From: Lusi M Cortés DO PCP: Dr. 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 Patient has been intolerant of beta-blockers for control of her atrial fibrillation, cardiology requested the patient be directly admitted to PCU for institution of Tikosyn therapy. At the time my examination on admission patient is alert and oriented x 3 and she is in no distress. On auscultation she appears to be in sinus rhythm-this was confirmed from telemetry. Patient will be placed on Tikosyn, EKGs will be obtained after administration and sent to cardiology for examination. Labs were ordered, patient's CHEM panel was unremarkable, INR was 2.1, and CBC showed a slightly low white blood cell count and hemoglobin of 11.3. 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 LETICIA (obstructive sleep apnea) Palpitations Supraventricular tachycardia Chest pain, unspecified GERD (gastroesophageal reflux disease) Family history of premature coronary heart disease Patent foramen ovale Peripheral neuropathy Long-term use of high-risk medication Nonsustained ventricular tachycardia Excessive sleepiness Paroxysmal A-fib Snoring Obstructive sleep apnea Home Medications ???Medication ???Instructions ???Recorded ???Last Taken ???Type latanoprost 0.005 % eye drops 1 drp ophthalmic (eye) QHS eyes 09/12/16 Unknown History levothyroxine 75 mcg tablet 75 mcg PO DAILY hypothyroid 02/27/20 Unknown History warfarin 4 mg tablet 4 mg PO .COMPLEX anticoag #135 tabs 10/09/23 Unknown Rx gabapentin 100 mg capsule 200 mg PO QHS neuropathy 12/12/23 Unknown History lorazepam 0.5 mg tablet 0.5 mg PO QHS sleep 12/12/23 Unknown History timolol maleate 0.5 % eye drops 1 drp ophthalmic (eye) BID eye 12/12/23 Unknown History health vit C 250 mg-vit E 90 mg-zinc 40 1 tab PO BID eye health 12/12/23 Unknown History mg-copper 1 vd-jyesas-yxctny capsule (PreserVision AREDS-2) doxazosin 2 mg tablet 2 mg PO QHS #30 tabs 12/19/23 Unknown Rx metoprolol tartrate 50 mg tablet 50 mg PO DAILY heart rate #30 tabs 01/02/24 Unknown Rx Allergy/AdvReac Type Severity Reaction Status Date / Time enoxaparin (From Lovenox) Allergy Rash Verified 01/03/24 09:51 Sulfa (Sulfonamide Allergy Hives Verified 01/03/24 09:51 Antibiotics) amlodipine AdvReac Intermediate Marked Verified 01/03/24 09:51 swelling in feet and ankles hydrochlorothiazide AdvReac Intermediate urinary Verified 01/03/24 09:51 incontinence/leaking Family History Mother Cancer Colon Diabetes Sister CAD (coronary artery disease) Heart disease Diabetes Son Kidney disease Surgical History Hx of colonoscopy with polypectomy ( 2017) History of radiofrequency ablation procedure for cardiac arrhythmia ( 08/17/17) Tooth disorder S/P arthroscopic surgery of left knee History of total right knee replacement S/P excision of lipoma H/O section S/P appendectomy S/P lateral meniscal repair H/O: hysterectomy Social History Smoking Status: Former smoker second hand exposure: No alcohol intake: never substance use type: does not use caffeine: No what type of physical activity do you participate in: other details: stationary bike frequency: daily seatbelt use: always do you feel safe at home: Yes ROS Constitutional Constitutional: Denies anorexia, change in weight, chills, fever(s), night sweats or weakness Eyes Eyes: Denies blurry vision, change in vision, discharge from eye(s) or eye pain Cardiovascular Cardiovascular: Reports palpitations and rapid heart rate; Denies chest pain, claudication or edema Respiratory/Chest Respiratory/Chest: Denies cough, excessive phlegm production, hemoptysis, shortness of breath at rest or shortness of breath with exertion Gastrointestinal Gastrointestinal: Reports nausea; Denies abdominal pain, constipation, diarrhea, hematemesis, hematochezia, melena or vomiting Genitourinary Genito (more content not included)... Normal [facility] Prothrombin Time w/INRon INR Coag (PPP) [Relative time] 2.1 {INR} Normal [facility] Comment on above: Performed By: #### L 3300.3500, L300.3900, L3300.6400, M100.2200, L501.9985, L400.2011, L3410.9999, L3100.7750, L501.9520, L509.6000 #### [facility] [address] [place], [address] PT Coag (PPP) [Time] 23.7 s High 11.7-14.[address] [facility] Comment on above: Performed By: #### L 3300.3500, L300.3900, L3300.6400, M100.2200, L501.9985, L400.2010, L3410.9999, L3100.7750, L501.9520, L509.6000 #### [facility] [address] [place], [address] Prothrombin Time w/INRon INR Coag (PPP) [Relative time] 2.3 {INR} Normal [facility] Comment on above: Performed By: #### L 3300.3500, L300.3900, L3300.6400, M100.2200, L501.9985, L400.2010, L3410.9999, L3100.7750, L501.9520, L509.6000 #### [facility] [address] [place], [address] PT Coag (PPP) [Time] 25.4 s High 11.7-14.[address] [facility] Comment on above: Performed By: #### L 3300.3500, L300.3900, L3300.6400, M100.2200, L501.9985, L400.2010, L3410.9999, L3100.7750, L501.9520, L509.6000 #### [facility] [address] [place], [address] Zinc, Plasma or Serumon 12-06 ZINC,PLASMA/SER 82 ug/dL Normal 44-115 [facility] Comment on above: Order Comment: Test( s) [id number], Plasma or Serumwas developed and its performance characteristicsdetermined by [facility]. It has not been cleared or approvedby the Food and Drug Administration. Result Comment: Dete ction Limit = 5 Performed at: [address] [id number] Member Of Parliament: Brian Hinson MD, Phone: [phone] Performed By: #### L 3300.3500, L300.3900, L3300.6400, M100.2200, L501.9985, L400.2011, L3410.9999, L3100.7750, L501.9520, L509.6000 #### [facility] [address] [place], [address] Vitamin B12on 12-13-2023 Cobalamin (Vitamin B12) [Mass/Vol] 772 pg/mL Normal 211-911 [facility] Comment on above: Performed By: #### L 3300.3500, L300.3900, L3300.6400, M100.2200, L501.9985, L400.2011, L3410.9999, L3100.7750, L501.9520, L509.6000 #### [facility] [address] [place], [address] Cardiology Visit Reporton Cardiology Visit Report [facility] 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 Cheatham, a 88 year old lady comes in today with her . She carries a history of paroxysmal atrial fibrillation status post radiofrequency ablation in 2018 at the [facility]. The patient had been on amiodarone for several years. Her heart rate was in the 35 to 40 bpm range so we decided to discontinue the amiodarone and put her on metoprolol 50 mg twice daily. Her blood pressure was fine but her heart rate was in the mid 30s. Her metoprolol was decreased to 25 mg twice daily and her heart rate remained 36 in the office at her last office visit. Metoprolol was discontinued at that time. She is well aware when she goes into atrial fibrillation and has a [employer] mobile device that she can document it. Her echocardiogram from 06/28/2023 which showed normal ejection fraction of 60% with stage II diastolic dysfunction. RV was normal PA pressure was 38. There was trivial mitral and tricuspid regurgitation. There was aortic valve thickening but no stenosis. Both atria were normal size. Patient and patient daughter contacted our office on 12/04/2023 with concerns that patient lost her appetite due to loss of taste and smell. It was noted be concerning that patient was on an JOSE LUIS inhibitor/ARB that may be contributing. She had tested negative for COVID. She discontinued Flonase and no change. She presents today to assess symptoms and discern medication adjustment. She denies chest, arm, jaw, or neck discomfort. She denies palpitations. She denies bilateral lower extremity edema. She denies claudication. She denies shortness of breath with activity, shortness of breath at rest, orthopnea, or PND. She denies chronic cough. She denies significant, sudden weight gain. She states occasional lightheadedness. She denies dizziness, near-syncope, or syncope. She denies blood in urine, blood in stool, or epistaxis. He denies fever with chills. She denies myalgia. She denies fatigue. Her exercise level has remained stable. 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 Accompanied by: Is patient in pain?: No Allergies enoxaparin (From Lovenox) Allergy (Verified 12/12/23 10:03) Rash Sulfa (Sulfonamide Antibiotics) Allergy (Verified 12/12/23 10:03) Hives amlodipine Adverse Reaction (Intermediate, Verified 12/12/23 10:03) Marked swelling in feet and ankles hydrochlorothiazide Adverse Reaction (Intermediate, Verified 12/12/23 10:03) urinary incontinence/leaking Medications ???Medication ???Instructions ???Recorded ???Confirmed ???Type latanoprost 0.005 % eye drops 1 drp QHS 09/12/16 12/12/23 History levothyroxine 75 mcg tablet 75 mcg PO DAILY 02/27/20 12/12/23 History warfarin 4 mg tablet 4 mg PO .COMPLEX #135 tabs 10/09/23 12/12/23 Rx gabapentin 100 mg capsule 200 mg PO QHS 12/12/23 12/12/23 History lorazepam 0.5 mg tablet 0.5 mg PO QHS 12/12/23 12/12/23 History losartan 25 mg tablet 25 mg PO BID #180 tabs 12/12/23 12/12/23 Rx simvastatin 20 mg tablet 20 mg PO Q OTHER DAY 12/12/23 12/12/23 History timolol maleate 0.5 % eye drops 1 drp ophthalmic (eye) BID 12/12/23 12/12/23 History vit C 250 mg-vit E 90 mg-zinc 40 1 tab PO BID 12/12/23 12/12/23 History mg-copper 1 cl-absjev-cupmbc capsule (PreserVision AREDS-2) Ejection fraction %: 60 Have you fallen in the past year?: No PFSH Medical History H/O abdominal pain Difficulty balancing Pure hypercholesterolemia Essential hypertension 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 Normal [facility] Prothrombin Time w/INRon INR Coag (PPP) [Relative time] 2.6 {INR} Normal [facility] Comment on above: Performed By: #### L 3300.3500, L300.3900, L3300.6400, M100.2200, L501.9985, L400.2011, L3410.9999, L3100.7750, L501.9520, L509.6000 #### [facility] [address] [place], [address] PT Coag (PPP) [Time] 28.0 s High 11.7-14.[address] [facility] Comment on above: Performed By: #### L 3300.3500, L300.3900, L3300.6400, M100.2200, L501.9985, L400.2011, L3410.9999, L3100.7750, L501.9520, L509.6000 #### [facility] [address] [place], [address] Prothrombin Time w/INRon INR Coag (PPP) [Relative time] 2.1 {INR} Normal [facility] Comment on above: Performed By: #### L 3300.3500, L300.3900, L3300.6400, M100.2200, L501.9985, L400.2011, L3410.9999, L3100.7750, L501.9520, L509.6000 #### [facility] [address] [place] [place], [address] PT Coag (PPP) [Time] 23.4 s High 11.7-14.[address] [facility] Comment on above: Performed By: #### L 3300.3500, L300.3900, L3300.6400, M100.2200, L501.9985, L400.2011, L3410.9999, L3100.7750, L501.9520, L509.6000 #### [facility] [address] [place], [place], [address] Prothrombin Time w/INRon INR Coag (PPP) [Relative time] 1.8 {INR} Normal [facility] Comment on above: Performed By: #### L 3300.3500, L300.3900, L3300.6400, M100.2200, L501.9985, L400.2011, L3410.9999, L3100.7750, L501.9520, L509.6000 #### [facility] [address] [place], [place], [id number] PT Coag (PPP) [Time] 20.6 s High 11.7-14.[address] [facility] Comment on above: Performed By: #### L 3300.3500, L300.3900, L3300.6400, M100.2200, L501.9985, L400.2010, L3410.9999, L3100.7750, L501.9520, L509.6000 #### [facility] [address] [place], [place], [id number] Laboratory - CoagulationOrde red By: Shawna Oswald on 09-04-2023 INR Coag (Bld) [Relative time] 1.5 {INR} [facility] PT Coag (PPP) [Time] 18.4 s 11.7-14.[address] [facility] Basophil percentageOrdered B y: Luis M Lama on 08-16-2023 Hemoglobin (Bld) [Mass/Vol] 10.9 g/dL 12.0-15.0 [facility] - CoagulationOrde red By: Shawna Oswald on 07-31-2023 INR Coag (Bld) [Relative time] 2.1 {INR} [facility] PT Coag (PPP) [Time] 23.1 s 11.7-14.[address] [facility] Whole blood hemoglobin A1c/t otal hemoglobin ratio (mass fraction)Ordered By: Shawna Oswald on 07-31-2023 HbA1c (Bld) [Mass fraction] 5.3 % 3.8-5.6 [facility] Comment on above: Normal < 5.7 % Predi abetic 5.7 - 6.4 % Diabetic >or= 6.5 % Please note range changes. Absolute lymphocyte countOrd ered By: Hung Keyes on 07-03-2023 Lymphocytes Auto (Unsp spec) [#/Vol] 1.26 10*3/uL 0.83-4.51 [facility] Automated lymphocyte count a s percentage of total leukocytesOrdered By: Hung Keyes on 07-03-2023 Lymphocytes/100 WBC Auto (Unsp spec) 28.1 % 19-41 [facility] Basophil percentageOrdered B y: Hung Keyes on 07-03-2023 Basophils/100 WBC (Bld) 0.9 % 0-1 [facility] Eosinophils/100 WBC (Bld) 1.8 % 0-5 [facility] Hemoglobin (Bld) [Mass/Vol] 11.2 g/dL 12.0-15.0 [facility] Monocytes/100 WBC (Bld) 10.0 % 0-10 [facility] Neutrophils (Bld) [#/Vol] 2.6 10*3/uL 2.0-7.7 [facility] Neutrophils/100 WBC (Bld) 59.0 % 47-70 [facility] WBC (Bld) [#/Vol] 4.5 10*3/uL 4.4-11.0 [facility] Determination of erythrocyte mean corpuscular volume (MCV)Ordered By: Hung Keyes on 07-03-2023 MCV (RBC) [Entitic vol] 98.3 fL 81-99 [facility] Erythrocyte distribution wid th ratioOrdered By: Hung Keyes on 07-03-2023 Erythrocyte distribution width (RBC) [Ratio] 13.2 % 11.6-14.6 [facility] Erythrocyte distribution wid th standard deviationOrdered By: Hung Keyes on 07-03-2023 Erythrocyte distribution width (RBC) [Entitic vol] 47.2 fL 35.1-43.9 [facility] Hematocrit Auto (Bld) [Volum e fraction]Ordered By: Hung Keyes on 07-03-2023 Hematocrit (Bld) [Volume fraction] 35.3 % 37-47 [facility] Immature granulocytes/100 WB C Auto (Bld)Ordered By: Hung Keyes on 07-03-2023 Immature granulocytes/100 WBC (Bld) 0.200 % 0.0-0.9 [facility] Comment on above: IG% - Immature Granu locytes (promyelocytes, myelocytes and metamyelocytes) > 1% indicates that a LEFT SHIFT is Present. Laboratory - CoagulationOrde red By: Hung Keyes on 07-03-2023 INR Coag (Bld) [Relative time] 3.4 {INR} [facility] PT Coag (PPP) [Time] 34.0 s 11.7-14.[address] [facility] Laboratory - Hematology and Cell countsOrdered By: Hung Keyes on 07-03-2023 MCH (RBC) [Entitic mass] 31.2 pg 27.0-32.0 [facility] MCHC (RBC) [Mass/Vol] 31.7 g/dL 32-36 [facility] Nucleated RBC/100 WBC (Bld) [Ratio] 0 % 0-5 [facility] Platelet mean volume (Bld) [Entitic vol] 10.5 fL 6.2-12.0 [facility] Platelets (Bld) [#/Vol] 207 10*3/uL 150-450 [facility] RBC Auto (Bld) [#/Vol]Ordere d By: Hung Keyes on 07-03-2023 RBC (Bld) [#/Vol] 3.59 10*6/uL 4.2-5.4 [facility] Absolute lymphocyte countOrd ered By: Gurdeep Martinez on 05-31-2023 Lymphocytes Auto (Unsp spec) [#/Vol] 1.27 10*3/uL 0.83-4.51 [facility] Automated lymphocyte count a s percentage of total leukocytesOrdered By: Gurdeep Martinez on 05-31-2023 Lymphocytes/100 WBC Auto (Unsp spec) 23.2 % 19-41 [facility] Basophil percentageOrdered B y: Gurdeep Martinez on 05-31-2023 Basophils/100 WBC (Bld) 0.5 % 0-1 [facility] Eosinophils/100 WBC (Bld) 1.3 % 0-5 [facility] Hemoglobin (Bld) [Mass/Vol] 11.3 g/dL 12.0-15.0 [facility] Monocytes/100 WBC (Bld) 9.5 % 0-10 [facility] Neutrophils (Bld) [#/Vol] 3.6 10*3/uL 2.0-7.7 [facility] Neutrophils/100 WBC (Bld) 65.1 % 47-70 [facility] WBC (Bld) [#/Vol] 5.5 10*3/uL 4.4-11.0 [facility] Bilirubin [Mass/Vol] 0.40 mg/dL 0.20-1.[address] [facility] Comment on above: For patients on eltr ombopag therapy, use of Dimension Galvin TBIL is not recommended. Chloride [Moles/Vol] 106 mmol/L 98-[address] [facility] Cholesterol [Mass/Vol] 167 mg/dL <200 [facility] Comment on above: <200 mg/dL Desirable 200-240 mg/dL Borderline >240 mg/dL High Risk Glucose [Mass/Vol] 89 mg/dL 74-106 [facility] Potassium [Moles/Vol] 4.6 mmol/L 3.5-5.1 [facility] Protein [Mass/Vol] 6.9 g/dL 6.4-8.2 [facility] Sodium [Moles/Vol] 138 mmol/L 136-145 [facility] Triglyceride [Mass/Vol] 73 mg/dL <199 [facility] Comment on above: The drugs N-Acetylcy steine and Metamizole may falsely depress this assay.Serum Triglycerides Reference Interval Normal <150 mg/dL Borderline high 150 - 199 mg/dL High 200 - 499 mg/dL Very High > or = 500 mg/dL Determination of erythrocyte mean corpuscular volume (MCV)Ordered By: Gurdeep Martinez on 05-31-2023 MCV (RBC) [Entitic vol] 97.8 fL 81-99 [facility] Direct bilirubinOrdered By: Gurdeep [place] on 05-31-2023 Bilirubin.direct [Mass/Vol] 0.13 mg/dL 0.00-0.30 [facility] Erythrocyte distribution wid th ratioOrdered By: Gurdeep [place] on 05-31-2023 Erythrocyte distribution width (RBC) [Ratio] 13.0 % 11.6-14.6 [facility] Erythrocyte distribution wid th standard deviationOrdered By: Gurdeep [place] on 05-31-2023 Erythrocyte distribution width (RBC) [Entitic vol] 46.7 fL 35.1-43.9 [facility] Hematocrit Auto (Bld) [Volum e fraction]Ordered By: Gurdeep [place] on 05-31-2023 Hematocrit (Bld) [Volume fraction] 35.2 % 37-47 [facility] High density lipoprotein (HD L) measurementOrdered By: Gurdeep Martinez on 05-31-2023 Cholesterol in HDL (Body fld) [Mass/Vol] 63 mg/dL >40 [facility] Comment on above: The drugs N-Acetylcy steine and Metamizole may falsely depress this assay. Reference Range HDL <40 mg/dL Low HDL Cholesterol HDL >or= 60 mg/dL High HDL Cholesterol Immature granulocytes/100 WB C Auto (Bld)Ordered By: Gurdeep Martinez on 05-31-2023 Immature granulocytes/100 WBC (Bld) 0.400 % 0.0-0.9 [facility] Comment on above: IG% - Immature Granu locytes (promyelocytes, myelocytes and metamyelocytes) > 1% indicates that a LEFT SHIFT is Present. International normalized rat io (INR) calculationOrdered By: Gurdeep Martinez on 05-31-2023 INR Coag (PPP) [Relative time] 3.0 {INR} [facility] - Chemistry and C hemistry - challengeOrdered By: Gurdeep [place] on 05-31-2023 Albumin/Globulin [Mass ratio] 1.2 {ratio} 0.9-2.4 [facility] ALP [Catalytic activity/Vol] 82 U/L 45-117 [facility] ALT [Catalytic activity/Vol] 18 U/L 13-56 [facility] CO2 [Moles/Vol] 28.0 mmol/L 21.0-32.0 [facility] Globulin (S) [Mass/Vol] 3.2 g/dL 2.2-4.2 [facility] Urea nitrogen/Creatinine [Mass ratio] 25.2 mg/mg 10-20 [facility] - CoagulationOrde red By: Gurdeep Martinez on 05-31-2023 PT Coag (PPP) [Time] 31.6 s 11.7-14.[address] [facility] Laboratory - Hematology and Cell countsOrdered By: Gurdeep Martinez on 05-31-2023 MCH (RBC) [Entitic mass] 31.4 pg 27.0-32.0 [facility] MCHC (RBC) [Mass/Vol] 32.1 g/dL 32-36 [facility] Nucleated RBC/100 WBC (Bld) [Ratio] 0 % 0-5 [facility] Platelets (Bld) [#/Vol] 208 10*3/uL 150-450 [facility] Low density lipoprotein (LDL ) cholesterol measurementOrdered By: Gurdeep Martinez on 05-31-2023 Cholesterol in LDL (Body fld) [Moles/Vol] 89 mg/dL 0-130 [facility] No Panel InformationOrdered By: Gurdeep Martinez on 05-31-2023 Estimated GFR (MDRD) Amer 65 mL/min >60 [facility] Comment on above: GFR Calc Estimated GFR (MDRD) Non-Af Amer 54 mL/min >60 [facility] Comment on above: Non- GFR Calc Platelet mean volume Yair-Ec ker (Bld) [Entitic vol]Ordered By: Gurdeep Martinez on 05-31-2023 Platelet mean volume (Bld) [Entitic vol] 10.5 fL 6.2-12.0 [facility] RBC Auto (Bld) [#/Vol]Ordere d By: Gurdeep Martinez on 05-31-2023 RBC (Bld) [#/Vol] 3.60 10*6/uL 4.2-5.4 [facility] Serum or plasma calcium dimple urement (mass/volume)Ordered By: Gurdeep Martinez on 05-31-2023 Calcium [Mass/Vol] 9.4 mg/dL 8.5-10.1 [facility] Serum or plasma creatinine m easurement (mass/volume)Ordered By: Gurdeep Martinez on 05-31-2023 Creatinine [Mass/Vol] 1.03 mg/dL 0.55-1.02 [facility] Comment on above: The validity of the calculated GFR & GFRAA in patients over 70 years has not been determined. Clinical correlation is essential. Serum or plasma thyroid stim ulating hormone (TSH) measurement (units/volume)Ordered By: Gurdeep Martinez on 05-31-2023 TSH Qn 2.62 uIU/mL 0.358-3.74 [facility] Serum or plasma urea nitroge n measurement (mass/volume)Ordered By: Gurdeep Martinez on 05-31-2023 Urea nitrogen [Mass/Vol] 26 mg/dL 7-18 [facility] Thin prep Papanicolaou smear with manual screeningOrdered By: Gurdeep Martinez on 05-31-2023 Thin prep Papanicolaou smear with manual screening 3.7 g/dL 3.2-5.0 [facility] Thin prep Papanicolaou smear with manual screening 23 U/L 15-37 [facility] Thin prep Papanicolaou smear with manual screening 4 5-15 [facility] Thin prep Papanicolaou smear with manual screening 1.93 ng/dL 0.76-1.46 [facility] Very low density lipoprotein (VLDL) cholesterol measurementOrdered By: Gurdeep Martinez on 05-31-2023 Cholesterol in VLDL Calc [Moles/Vol] 15 mg/dL 5-40 [facility] Basophil percentageOrdered B y: Luis M Lama on 05-04-2023 LDH [Catalytic activity/Vol] 239 U/L 84-246 [facility] Iron measurement (mass/mass) Ordered By: Luis M Lama on 05-04-2023 Iron (Unsp spec) [Mass/Mass] 57 ug/dL 50-170 [facility] - Chemistry and C hemistry - challengeOrdered By: Luis M Lama on 05-04-2023 Cobalamin (Vitamin B12) [Mass/Vol] 1022 pg/mL 211-911 [facility] Serum or plasma ferritin edith surement (mass/volume)Ordered By: Luis M Lama on 05-04-2023 Ferritin [Mass/Vol] 55 ng/mL 8-252 [facility] Absolute lymphocyte countOrd ered By: Shawna Oswald on 04-24-2023 Lymphocytes Auto (Unsp spec) [#/Vol] 1.25 10*3/uL 0.83-4.51 [facility] Basophil percentageOrdered B y: Shawna Oswald on 04-24-2023 Basophils/100 WBC (Bld) 0.8 % 0-1 [facility] Bilirubin [Mass/Vol] 0.30 mg/dL 0.20-1.[address] [facility] Comment on above: For patients on eltr ombopag therapy, use of Dimension Galvin TBIL is not recommended. Chloride [Moles/Vol] 109 mmol/L 98-[address] [facility] Cholesterol [Mass/Vol] 168 mg/dL <200 [facility] Comment on above: <200 mg/dL Desirable 200-240 mg/dL Borderline >240 mg/dL High Risk Eosinophils/100 WBC (Bld) 1.1 % 0-5 [facility] Glucose [Mass/Vol] 85 mg/dL 74-106 [facility] Neutrophils (Bld) [#/Vol] 2.0 10*3/uL 2.0-7.7 [facility] Neutrophils/100 WBC (Bld) 53.6 % 47-70 [facility] Potassium [Moles/Vol] 4.5 mmol/L 3.5-5.1 [facility] Protein [Mass/Vol] 6.4 g/dL 6.4-8.2 [facility] Sodium [Moles/Vol] 142 mmol/L 136-145 [facility] Triglyceride [Mass/Vol] 66 mg/dL <199 [facility] Comment on above: The drugs N-Acetylcy steine and Metamizole may falsely depress this assay.Serum Triglycerides Reference Interval Normal <150 mg/dL Borderline high 150 - 199 mg/dL High 200 - 499 mg/dL Very High > or = 500 mg/dL WBC (Bld) [#/Vol] 3.7 10*3/uL 4.4-11.0 [facility] Blood erythrocytes count (nu mber/volume)Ordered By: Shawna Oswald on 04-24-2023 RBC (Bld) [#/Vol] 3.34 10*6/uL 4.2-5.4 [facility] Blood hemoglobin measurement (mass/volume)Ordered By: Shawna Oswald on 04-24-2023 Hemoglobin (Bld) [Mass/Vol] 10.5 g/dL 12.0-15.0 [facility] Blood lymphocytes/100 leukoc ytesOrdered By: Shawna Oswald on 04-24-2023 Lymphocytes/100 WBC (Bld) 33.5 % 19-41 [facility] Blood monocytes/100 leukocyt esOrdered By: Shawna Oswald on 04-24-2023 Monocytes/100 WBC (Bld) 10.7 % 0-10 [facility] Blood platelet mean volumeOr dered By: Shawna Oswald on 04-24-2023 Platelet mean volume (Bld) [Entitic vol] 10.4 fL 6.2-12.0 [facility] Determination of erythrocyte mean corpuscular volume (MCV)Ordered By: Shawna Oswald on 04-24-2023 MCV (RBC) [Entitic vol] 100.9 fL 81-99 [facility] Direct bilirubinOrdered By: Shawna Oswald on 04-24-2023 Bilirubin.direct [Mass/Vol] 0.06 mg/dL 0.00-0.30 [facility] Hematocrit Auto (Bld) [Volum e fraction]Ordered By: Shawna Oswald on 04-24-2023 Hematocrit (Bld) [Volume fraction] 33.7 % 37-47 [facility] INR in Blood by Coagulation assayOrdered By: Shawna Oswald on 04-24-2023 INR Coag (Bld) [Relative time] 2.5 {INR} [facility] - Chemistry and C hemistry - challengeOrdered By: Shawna Oswald on 04-24-2023 ALP [Catalytic activity/Vol] 70 U/L 45-117 [facility] ALT [Catalytic activity/Vol] 18 U/L 13-56 [facility] CO2 [Moles/Vol] 29.0 mmol/L 21.0-32.0 [facility] Free T4 [Mass/Vol] 1.54 ng/dL 0.76-1.46 [facility] Globulin (S) [Mass/Vol] 3.0 g/dL 2.2-4.2 [facility] Urea nitrogen/Creatinine [Mass ratio] 20.5 mg/mg 10-20 [facility] Laboratory - CoagulationOrde red By: Shawna Oswald on 04-24-2023 PT Coag (PPP) [Time] 27.3 s 11.7-14.[address] [facility] Laboratory - Hematology and Cell countsOrdered By: Shawna Oswald on 04-24-2023 Erythrocyte distribution width (RBC) [Entitic vol] 50.0 fL 35.1-43.9 [facility] Erythrocyte distribution width (RBC) [Ratio] 13.4 % 11.6-14.6 [facility] Immature granulocytes/100 WBC (Bld) 0.300 % 0.0-0.9 [facility] Comment on above: IG% - Immature Granu locytes (promyelocytes, myelocytes and metamyelocytes) > 1% indicates that a LEFT SHIFT is Present. MCH (RBC) [Entitic mass] 31.4 pg 27.0-32.0 [facility] Nucleated RBC/100 WBC (Bld) [Ratio] 0 % 0-5 [facility] MCHC Auto (RBC) [Mass/Vol]Or dered By: Shawna Oswald on 04-24-2023 MCHC (RBC) [Mass/Vol] 31.2 g/dL 32-36 [facility] No Panel InformationOrdered By: Shawna Oswald on 04-24-2023 Estimated GFR (MDRD) Amer 59 mL/min >60 [facility] Comment on above: GFR Calc Estimated GFR (MDRD) Non-Af Amer 49 mL/min >60 [facility] Comment on above: Non- GFR Calc Thyroid Stimulating Hormone (TSH) 3.73 uIU/mL 0.358-3.74 [facility] Platelets bldOrdered By: Scottie Oswald on 04-24-2023 Platelets (Bld) [#/Vol] 214 10*3/uL 150-450 [facility] Serum or plasma albumin dimple urement (mass/volume)Ordered By: Shawna Oswald on 04-24-2023 Albumin [Mass/Vol] 3.4 g/dL 3.2-5.0 [facility] Serum or plasma albumin/glob ulin mass ratioOrdered By: Shawna Oswald on 04-24-2023 Albumin/Globulin [Mass ratio] 1.1 {ratio} 0.9-2.4 [facility] Serum or plasma calcium dimple urement (mass/volume)Ordered By: Shawna Oswald on 04-24-2023 Calcium [Mass/Vol] 8.4 mg/dL 8.5-10.1 [facility] Serum or plasma cholesterol in HDL measurement (mass/volume)Ordered By: Sahwna Oswald on 04-24-2023 Cholesterol in HDL [Mass/Vol] 65 mg/dL >40 [facility] Comment on above: The drugs N-Acetylcy steine and Metamizole may falsely depress this assay. Reference Range HDL <40 mg/dL Low HDL Cholesterol HDL >or= 60 mg/dL High HDL Cholesterol Serum or plasma cholesterol in VLDL measurement (mass/volume)Ordered By: Shawna Oswald on 04-24-2023 Cholesterol in VLDL [Mass/Vol] 13 mg/dL 5-40 [facility] Serum or plasma creatinine m easurement (mass/volume)Ordered By: Shawna Oswald on 04-24-2023 Creatinine [Mass/Vol] 1.12 mg/dL 0.55-1.02 [facility] Comment on above: The validity of the calculated GFR & GFRAA in patients over 70 years has not been determined. Clinical correlation is essential. Serum or plasma low density lipoprotein (LDL) cholesterol measurement (mass/volume)Ordered By: Shawna Oswald on 04-24-2023 Cholesterol in LDL [Mass/Vol] 90 mg/dL 0-130 [facility] Serum or plasma urea nitroge n measurement (mass/volume)Ordered By: Shawna Oswald on 04-24-2023 Urea nitrogen [Mass/Vol] 23 mg/dL 7-18 [facility] Thin prep Papanicolaou smear with manual screeningOrdered By: Shawna Oswald on 04-24-2023 Thin prep Papanicolaou smear with manual screening 26 U/L 15-37 [facility] Thin prep Papanicolaou smear with manual screening 4 5-15 [facility] INR in Blood by Coagulation assayOrdered By: Shawna Oswald on 03-27-2023 INR Coag (Bld) [Relative time] 2.8 {INR} [facility] - CoagulationOrde red By: Shawna Oswald on 03-27-2023 PT Coag (PPP) [Time] 29.5 s 11.7-14.[address] [facility] INR in Blood by Coagulation assayOrdered By: Shawna Oswald on 02-27-2023 INR Coag (Bld) [Relative time] 2.6 {INR} [facility] - CoagulationOrde red By: Shawna Oswald on 02-27-2023 PT Coag (PPP) [Time] 28.0 s 11.7-14.[address] [facility] INR in Blood by Coagulation assayOrdered By: Shawna Oswald on 01-30-2023 INR Coag (Bld) [Relative time] 3.7 {INR} [facility] - CoagulationOrde red By: Shawna Oswald on 01-30-2023 PT Coag (PPP) [Time] 37.1 s 11.7-14.[address] [facility] INR in Blood by Coagulation assayOrdered By: Clement Luna on 01-02-2023 INR Coag (Bld) [Relative time] 2.8 {INR} [facility] - CoagulationOrde red By: [place] Min[place]fredy Luna on 01-02-2023 PT Coag (PPP) [Time] 30.3 s 11.7-14.[address] [facility] Culture, urineOrdered By: Julianna Lama on 12-29-2022 Bacteria identified Cx Nom (U) ESBL Escherichia coli [facility] Bacteria identified Cx Nom (U) ESBL Escherichia coli [facility] INR in Blood by Coagulation assayOrdered By: Sebastián Bolaños on 12-05-2022 INR Coag (Bld) [Relative time] 2.2 {INR} [facility] - CoagulationOrde red By: Sebastián Bolaños on 12-05-2022 PT Coag (PPP) [Time] 24.4 s 11.7-14.[address] [facility] INR in Blood by Coagulation assayOrdered By: Sebastián Bolaños on 11-21-2022 INR Coag (Bld) [Relative time] 2.1 {INR} [facility] - CoagulationOrde red By: Sebastián Bolaños on 11-21-2022 PT Coag (PPP) [Time] 23.7 s 11.7-14.[address] [facility] INR in Blood by Coagulation assayOrdered By: Sebastián Bolaños on 11-14-2022 INR Coag (Bld) [Relative time] 3.7 {INR} [facility] - CoagulationOrde red By: Sebastián Bolaños on 11-14-2022 PT Coag (PPP) [Time] 37.2 s 11.7-14.[address] [facility] Absolute lymphocyte countOrd ered By: Dr. Riley on 10-22-2022 Lymphocytes Auto (Unsp spec) [#/Vol] 1.42 10*3/uL 0.83-4.51 [facility] Basophil percentageOrdered B y: Dr. Riley on 10-22-2022 Basophils/100 WBC (Bld) 0.6 % 0-1 [facility] Chloride [Moles/Vol] 108 mmol/L 98-[address] [facility] Eosinophils/100 WBC (Bld) 1.4 % 0-5 [facility] Glucose [Mass/Vol] 101 mg/dL 74-106 [facility] Comment on above: Fasting Glucose resu lt from 100 to 125 mg/dL suggests IMPAIRED HOMEOSTASIS per A.D.A. criteria. Neutrophils (Bld) [#/Vol] 3.0 10*3/uL 2.0-7.7 [facility] Neutrophils/100 WBC (Bld) 60.8 % 47-70 [facility] Potassium [Moles/Vol] 4.4 mmol/L 3.5-5.1 [facility] Sodium [Moles/Vol] 141 mmol/L 136-145 [facility] WBC (Bld) [#/Vol] 5.0 10*3/uL 4.4-11.0 [facility] Blood erythrocytes count (nu mber/volume)Ordered By: Dr. Riley on 10-22-2022 RBC (Bld) [#/Vol] 3.65 10*6/uL 4.2-5.4 [facility] Blood hemoglobin measurement (mass/volume)Ordered By: Dr. Riley on 10-22-2022 Hemoglobin (Bld) [Mass/Vol] 11.6 g/dL 12.0-15.0 [facility] Blood lymphocytes/100 leukoc ytesOrdered By: Dr. Riley on 10-22-2022 Lymphocytes/100 WBC (Bld) 28.7 % 19-41 [facility] Blood monocytes/100 leukocyt esOrdered By: Dr. Riley on 10-22-2022 Monocytes/100 WBC (Bld) 8.1 % 0-10 [facility] Blood platelet mean volumeOr dered By: Dr. Riley on 10-22-2022 Platelet mean volume (Bld) [Entitic vol] 9.8 fL 6.2-12.0 [facility] Determination of erythrocyte mean corpuscular volume (MCV)Ordered By: Dr. Riley on 10-22-2022 MCV (RBC) [Entitic vol] 97.0 fL 81-99 [facility] Hematocrit Auto (Bld) [Volum e fraction]Ordered By: Dr. Riley on 10-22-2022 Hematocrit (Bld) [Volume fraction] 35.4 % 37-47 [facility] INR in Blood by Coagulation assayOrdered By: Dr. Riley on 10-22-2022 INR Coag (Bld) [Relative time] 2.3 {INR} [facility] Laboratory - Chemistry and C hemistry - challengeOrdered By: Dr. Riley on 10-22-2022 CO2 [Moles/Vol] 31.0 mmol/L 21.0-32.0 [facility] Natriuretic peptide B (Bld) [Mass/Vol] 300.6 pg/mL 0-100 [facility] Urea nitrogen/Creatinine [Mass ratio] 27.2 mg/mg 10-20 [facility] Laboratory - CoagulationOrde red By: Dr. Riley on 10-22-2022 PT Coag (PPP) [Time] 25.9 s 11.7-14.[address] [facility] Laboratory - Hematology and Cell countsOrdered By: Dr. Riley on 10-22-2022 Erythrocyte distribution width (RBC) [Entitic vol] 46.3 fL 35.1-43.9 [facility] Erythrocyte distribution width (RBC) [Ratio] 12.9 % 11.6-14.6 [facility] Immature granulocytes/100 WBC (Bld) 0.400 % 0.0-0.9 [facility] Comment on above: IG% - Immature Granu locytes (promyelocytes, myelocytes and metamyelocytes) > 1% indicates that a LEFT SHIFT is Present. MCH (RBC) [Entitic mass] 31.8 pg 27.0-32.0 [facility] Nucleated RBC/100 WBC (Bld) [Ratio] 0 % 0-5 [facility] MCHC Auto (RBC) [Mass/Vol]Or dered By: Dr. Riley on 10-22-2022 MCHC (RBC) [Mass/Vol] 32.8 g/dL 32-36 [facility] No Panel InformationOrdered By: Dr. Riley on 10-22-2022 Estimated Creatinine Clearance Calc 45.69 ml/min [facility] Estimated GFR (MDRD) Amer 87 mL/min >60 [facility] Comment on above: GFR Calc Estimated GFR (MDRD) Non-Af Amer 72 mL/min >60 [facility] Comment on above: Non- GFR Calc Troponin I High Sensitivity 9 pg/mL 3.0-54.0 [facility] Comment on above: Please Note: New Michelle t Units and Gender Specific Reference Ranges. For more information see Policy Stat Procedure Galvin High Sensitivity Troponin (TNIH) and attachments. Platelets bldOrdered By: Dr. Riley on 10-22-2022 Platelets (Bld) [#/Vol] 200 10*3/uL 150-450 [facility] Serum or plasma calcium dimple urement (mass/volume)Ordered By: Dr. Riley on 10-22-2022 Calcium [Mass/Vol] 9.3 mg/dL 8.5-10.1 [facility] Serum or plasma creatinine m easurement (mass/volume)Ordered By: Dr. Riley on 10-22-2022 Creatinine [Mass/Vol] 0.81 mg/dL 0.55-1.02 [facility] Comment on above: The validity of the calculated GFR & GFRAA in patients over 70 years has not been determined. Clinical correlation is essential. Serum or plasma urea nitroge n measurement (mass/volume)Ordered By: Dr. Riley on 10-22-2022 Urea nitrogen [Mass/Vol] 22 mg/dL 7-18 [facility] Thin prep Papanicolaou smear with manual screeningOrdered By: Dr. Riley on 10-22-2022 Thin prep Papanicolaou smear with manual screening 2 5-15 [facility] Basophil percentageOrdered B y: Dr. Bolaños on 10-10-2022 Bilirubin [Mass/Vol] 0.40 mg/dL 0.20-1.[address] [facility] Comment on above: For patients on eltr ombopag therapy, use of Dimension Galvin TBIL is not recommended. Cholesterol [Mass/Vol] 153 mg/dL <200 [facility] Comment on above: <200 mg/dL Desirable 200-240 mg/dL Borderline >240 mg/dL High Risk Protein [Mass/Vol] 6.6 g/dL 6.4-8.2 [facility] Triglyceride [Mass/Vol] 88 mg/dL <199 [facility] Comment on above: The drugs N-Acetylcy steine and Metamizole may falsely depress this assay.Serum Triglycerides Reference Interval Normal <150 mg/dL Borderline high 150 - 199 mg/dL High 200 - 499 mg/dL Very High > or = 500 mg/dL Direct bilirubinOrdered By: Dr. Bolaños on 10-10-2022 Bilirubin.direct [Mass/Vol] 0.12 mg/dL 0.00-0.30 [facility] INR in Blood by Coagulation assayOrdered By: Dr. Bolaños on 10-10-2022 INR Coag (Bld) [Relative time] 1.9 {INR} [facility] Laboratory - Chemistry and C hemistry - challengeOrdered By: Dr. Bolaños on 10-10-2022 ALP [Catalytic activity/Vol] 81 U/L 45-117 [facility] ALT [Catalytic activity/Vol] 16 U/L 13-56 [facility] Globulin (S) [Mass/Vol] 3.1 g/dL 2.2-4.2 [facility] Laboratory - CoagulationOrde red By: Dr. Bolaños on 10-10-2022 PT Coag (PPP) [Time] 22.2 s 11.7-14.[address] [facility] Serum or plasma albumin dimple urement (mass/volume)Ordered By: Dr. Bolaños on 10-10-2022 Albumin [Mass/Vol] 3.5 g/dL 3.2-5.0 [facility] Serum or plasma cholesterol in HDL measurement (mass/volume)Ordered By: Dr. Bolaños on 10-10-2022 Cholesterol in HDL [Mass/Vol] 54 mg/dL >40 [facility] Comment on above: The drugs N-Acetylcy steine and Metamizole may falsely depress this assay. Reference Range HDL <40 mg/dL Low HDL Cholesterol HDL >or= 60 mg/dL High HDL Cholesterol Serum or plasma cholesterol in VLDL measurement (mass/volume)Ordered By: Dr. Bolaños on 10-10-2022 Cholesterol in VLDL [Mass/Vol] 18 mg/dL 5-40 [facility] Serum or plasma low density lipoprotein (LDL) cholesterol measurement (mass/volume)Ordered By: Dr. Bolaños on 10-10-2022 Cholesterol in LDL [Mass/Vol] 81 mg/dL 0-130 [facility] Thin prep Papanicolaou smear with manual screeningOrdered By: Dr. Bolaños on 10-10-2022 Thin prep Papanicolaou smear with manual screening 17 U/L 15-37 [facility] Laboratory - CoagulationOrde red By: Dr. Bolaños on 09-12-2022 INR Coag (Bld) [Relative time] 2.0 {INR} [facility] Comment on above: Critical Value > 4.0 Whole blood prothrombin time Ordered By: Dr. Bolaños on 09-12-2022 PT Coag (Bld) [Time] 21.7 s 11.7-14.[address] [facility] Basophil percentageOrdered B y: Courtney Perales on 08-22-2022 Chloride [Moles/Vol] 103 mmol/L 98-[address] [facility] Glucose [Mass/Vol] 104 mg/dL 74-106 [facility] Comment on above: Fasting Glucose resu lt from 100 to 125 mg/dL suggests IMPAIRED HOMEOSTASIS per A.D.A. criteria. Potassium [Moles/Vol] 4.2 mmol/L 3.5-5.1 [facility] Sodium [Moles/Vol] 135 mmol/L 136-145 [facility] INR in Blood by Coagulation assayOrdered By: Courtney Perales on 08-22-2022 INR Coag (Bld) [Relative time] 2.5 {INR} [facility] Laboratory - Chemistry and C hemistry - challengeOrdered By: Courtney Perales on 08-22-2022 CO2 [Moles/Vol] 32.0 mmol/L 21.0-32.0 [facility] Urea nitrogen/Creatinine [Mass ratio] 24.3 mg/mg 10-20 [facility] Laboratory - CoagulationOrde red By: Courtney Perales on 08-22-2022 PT Coag (PPP) [Time] 26.8 s 11.7-14.[address] [facility] No Panel InformationOrdered By: Courtney Perales on 08-22-2022 Estimated GFR (MDRD) Amer 69 mL/min >60 [facility] Comment on above: GFR Calc Estimated GFR (MDRD) Non-Af Amer 57 mL/min >60 [facility] Comment on above: Non- GFR Calc Serum or plasma calcium dimple urement (mass/volume)Ordered By: Courtney Perales on 08-22-2022 Calcium [Mass/Vol] 9.3 mg/dL 8.5-10.1 [facility] Serum or plasma creatinine m easurement (mass/volume)Ordered By: Courtney Perales on 08-22-2022 Creatinine [Mass/Vol] 0.99 mg/dL 0.55-1.02 [facility] Comment on above: The validity of the calculated GFR & GFRAA in patients over 70 years has not been determined. Clinical correlation is essential. Serum or plasma urea nitroge n measurement (mass/volume)Ordered By: Courtney Perales on 08-22-2022 Urea nitrogen [Mass/Vol] 24 mg/dL 7-18 [facility] Thin prep Papanicolaou smear with manual screeningOrdered By: Courtney Perales on 08-22-2022 Thin prep Papanicolaou smear with manual screening 0 5-15 [facility] Laboratory - CoagulationOrde red By: Shawna Oswald on 08-08-2022 INR Coag (Bld) [Relative time] 2.6 {INR} [facility] Comment on above: Critical Value > 4.0 Whole blood prothrombin time Ordered By: Shawna Oswald on 08-08-2022 PT Coag (Bld) [Time] 27.7 s 11.7-14.[address] [facility] Laboratory - CoagulationOrde red By: Dr. Bolaños on 08-01-2022 INR Coag (Bld) [Relative time] 3.2 {INR} [facility] Comment on above: Critical Value > 4.0 Whole blood prothrombin time Ordered By: Dr. Bolaños on 03-27-2023 PT Coag (Bld) [Time] 34.2 s 11.7-14.[address] [facility] Laboratory - CoagulationOrde red By: Dr. Bolaños on 07-25-2022 INR Coag (Bld) [Relative time] 3.4 {INR} [facility] Comment on above: Critical Value > 4.0 Whole blood prothrombin time Ordered By: Dr. Bolaños on 07-25-2022 PT Coag (Bld) [Time] 35.6 s 11.7-14.[address] [facility] Laboratory - CoagulationOrde red By: Dr. Bolaños on 07-18-2022 INR Coag (Bld) [Relative time] 2.2 {INR} [facility] Comment on above: Critical Value > 4.0 Whole blood prothrombin time Ordered By: Dr. Bolaños on 07-18-2022 PT Coag (Bld) [Time] 26.1 s 11.7-14.[address] [facility] Laboratory - Microbiology an d Antimicrobial susceptibilityon 06-27-2022 S. pyogenes Ag IA Ql (Unsp spec) Negative [facility] Basophil percentageOrdered B y: Dr. Bolaños on 04-11-2022 Bilirubin [Mass/Vol] 0.40 mg/dL 0.20-1.[address] [facility] Comment on above: For patients on eltr ombopag therapy, use of Dimension Galvin TBIL is not recommended. Cholesterol [Mass/Vol] 167 mg/dL <200 [facility] Comment on above: <200 mg/dL Desirable 200-240 mg/dL Borderline >240 mg/dL High Risk Protein [Mass/Vol] 6.6 g/dL 6.4-8.2 [facility] Triglyceride [Mass/Vol] 124 mg/dL <199 [facility] Comment on above: The drugs N-Acetylcy steine and Metamizole may falsely depress this assay.Serum Triglycerides Reference Interval Normal <150 mg/dL Borderline high 150 - 199 mg/dL High 200 - 499 mg/dL Very High > or = 500 mg/dL Direct bilirubinOrdered By: Dr. Bolaños on 04-11-2022 Bilirubin.direct [Mass/Vol] 0.13 mg/dL 0.00-0.30 [facility] Laboratory - Chemistry and C hemistry - challengeOrdered By: Dr. Bolaños on 04-11-2022 ALP [Catalytic activity/Vol] 85 U/L 45-117 [facility] ALT [Catalytic activity/Vol] 23 U/L 13-56 [facility] Globulin (S) [Mass/Vol] 2.8 g/dL 2.2-4.2 [facility] Serum or plasma albumin dimple urement (mass/volume)Ordered By: Dr. Bolaños on 04-11-2022 Albumin [Mass/Vol] 3.8 g/dL 3.2-5.0 [facility] Serum or plasma cholesterol in HDL measurement (mass/volume)Ordered By: Dr. Bolaños on 04-11-2022 Cholesterol in HDL [Mass/Vol] 60 mg/dL >40 [facility] Comment on above: The drugs N-Acetylcy steine and Metamizole may falsely depress this assay. Reference Range HDL <40 mg/dL Low HDL Cholesterol HDL >or= 60 mg/dL High HDL Cholesterol Serum or plasma cholesterol in VLDL measurement (mass/volume)Ordered By: Dr. Bolaños on 04-11-2022 Cholesterol in VLDL [Mass/Vol] 25 mg/dL 5-40 [facility] Serum or plasma low density lipoprotein (LDL) cholesterol measurement (mass/volume)Ordered By: Dr. Bolaños on 04-11-2022 Cholesterol in LDL [Mass/Vol] 82 mg/dL 0-130 [facility] Thin prep Papanicolaou smear with manual screeningOrdered By: Dr. Bolaños on 04-11-2022 Thin prep Papanicolaou smear with manual screening 18 U/L 15-37 [facility] Stool gastrointestinal hemog lobin detection by immunologic methodOrdered By: Dr. Valerio on 04-05-2022 Lower GI hemoglobin IA Ql (Stl) [facility] Absolute lymphocyte counton 03-17-2022 Lymphocytes Auto (Unsp spec) [#/Vol] 1.81 10*3/uL 0.83-4.51 [facility] Work Phone: Basophil percentageon 2021 Basophils/100 WBC (Bld) 0.7 % 0-1 [facility] Work Phone: Chloride [Moles/Vol] 103 mmol/L 98-107 [facility] Work Phone: Eosinophils/100 WBC (Bld) 0.9 % 0-5 [facility] Work Phone: Glucose [Mass/Vol] 146 mg/dL 74-106 [facility] Work Phone: Comment on above: Fasting Glucose resu lt greater than or equal to 126 mg/dL suggests DIABETES MELLITUS per A.D.A. criteria. Neutrophils (Bld) [#/Vol] 2.2 10*3/uL 2.0-7.7 [facility] Work Phone: Neutrophils/100 WBC (Bld) 49.9 % 47-70 [facility] Work Phone: Potassium [Moles/Vol] 4.3 mmol/L 3.5-5.1 [facility] Work Phone: Sodium [Moles/Vol] 139 mmol/L 136-145 [facility] Work Phone: WBC (Bld) [#/Vol] 4.5 10*3/uL 4.4-11.0 [facility] Work Phone: [phone] Blood erythrocytes count (nu mber/volume)on 03-17-2022 RBC (Bld) [#/Vol] 3.52 10*6/uL 4.2-5.4 [facility] Work Phone: Blood hemoglobin measurement (mass/volume)on 03-17-2022 Hemoglobin (Bld) [Mass/Vol] 11.5 g/dL 12.0-15.0 [facility] Work Phone: Blood lymphocytes/100 leukoc yteson 03-17-2022 Lymphocytes/100 WBC (Bld) 40.3 % 19-41 [facility] Work Phone: Blood monocytes/100 leukocyt eson 03-17-2022 Monocytes/100 WBC (Bld) 8.0 % 0-10 [facility] Work Phone: Blood platelet mean volumeon 03-17-2022 Platelet mean volume (Bld) [Entitic vol] 10.3 fL 6.2-12.0 [facility] Work Phone: Determination of erythrocyte mean corpuscular volume (MCV)on 03-17-2022 MCV (RBC) [Entitic vol] 98.3 fL 81-99 [facility] Work Phone: Hematocrit Auto (Bld) [Volum e fraction]on 03-17-2022 Hematocrit (Bld) [Volume fraction] 34.6 % 37-47 [facility] Work Phone: Laboratory - Chemistry and C hemistry - challengeon 03-17-2022 CO2 [Moles/Vol] 29.0 mmol/L 21.0-32.0 [facility] Work Phone: Free T4 [Mass/Vol] 1.27 ng/dL 0.76-1.46 [facility] Work Phone: Urea nitrogen/Creatinine [Mass ratio] 25.6 mg/mg 10-20 [facility] Work Phone: Laboratory - Hematology and Cell countson 03-17-2022 Erythrocyte distribution width (RBC) [Entitic vol] 46.8 fL 35.1-43.9 [facility] Work Phone: Erythrocyte distribution width (RBC) [Ratio] 12.9 % 11.6-14.6 [facility] Work Phone: Immature granulocytes/100 WBC (Bld) 0.200 % 0.0-0.9 [facility] Work Phone: Comment on above: IG% - Immature Granu locytes (promyelocytes, myelocytes and metamyelocytes) > 1% indicates that a LEFT SHIFT is Present. MCH (RBC) [Entitic mass] 32.7 pg 27.0-32.0 [facility] Work Phone: Nucleated RBC/100 WBC (Bld) [Ratio] 0 % 0-5 [facility] Work Phone: MCHC Auto (RBC) [Mass/Vol]on 03-17-2022 MCHC (RBC) [Mass/Vol] 33.2 g/dL 32-36 [facility] Work Phone: No Panel Informationon 03-17 Estimated GFR (MDRD) Amer 77 mL/min >60 [facility] Work Phone: Comment on above: GFR Calc Estimated GFR (MDRD) Non-Af Amer 63 mL/min >60 [facility] Work Phone: Comment on above: Non- GFR Calc Thyroid Stimulating Hormone (TSH) 2.16 uIU/mL 0.358-3.74 [facility] Work Phone: Platelets bldon 03-17-2022 Platelets (Bld) [#/Vol] 227 10*3/uL 150-450 [facility] Work Phone: Serum or plasma calcium dimple urement (mass/volume)on 03-17-2022 Calcium [Mass/Vol] 9.3 mg/dL 8.5-10.1 [facility] Work Phone: Serum or plasma creatinine m easurement (mass/volume)on 03-17-2022 Creatinine [Mass/Vol] 0.90 mg/dL 0.55-1.02 [facility] Work Phone: Comment on above: The validity of the calculated GFR & GFRAA in patients over 70 years has not been determined. Clinical correlation is essential. Serum or plasma urea nitroge n measurement (mass/volume)on 03-17-2022 Urea nitrogen [Mass/Vol] 23 mg/dL 7-18 [facility] Work Phone: Thin prep Papanicolaou smear with manual screeningon 03-17-2022 Thin prep Papanicolaou smear with manual screening 7 5-15 [facility] Work Phone: Basophil percentageon 2021 Bilirubin [Mass/Vol] 0.30 mg/dL 0.20-1.[address] [facility] Work Phone: Comment on above: For patients on eltr ombopag therapy, use of Dimension Galvin TBIL is not recommended. Cholesterol [Mass/Vol] 158 mg/dL <200 [facility] Work Phone: Comment on above: <200 mg/dL Desirable 200-240 mg/dL Borderline >240 mg/dL High Risk Protein [Mass/Vol] 6.6 g/dL 6.4-8.2 [facility] Work Phone: Triglyceride [Mass/Vol] 79 mg/dL <199 [facility] Work Phone: Comment on above: The drugs N-Acetylcy steine and Metamizole may falsely depress this assay.Serum Triglycerides Reference Interval Normal <150 mg/dL Borderline high 150 - 199 mg/dL High 200 - 499 mg/dL Very High > or = 500 mg/dL Direct bilirubinon 2 Bilirubin.direct [Mass/Vol] 0.11 mg/dL 0.00-0.30 [facility] Work Phone: Laboratory - Chemistry and C hemistry - challengeon 10-22-2021 ALP [Catalytic activity/Vol] 79 U/L 45-117 [facility] Work Phone: ALT [Catalytic activity/Vol] 18 U/L 13-56 [facility] Work Phone: Globulin (S) [Mass/Vol] 2.9 g/dL 2.2-4.2 [facility] Work Phone: Serum or plasma albumin dimple urement (mass/volume)on 10-22-2021 Albumin [Mass/Vol] 3.7 g/dL 3.2-5.0 [facility] Work Phone: Serum or plasma cholesterol in HDL measurement (mass/volume)on 10-22-2021 Cholesterol in HDL [Mass/Vol] 51 mg/dL >40 [facility] Work Phone: Comment on above: The drugs N-Acetylcy steine and Metamizole may falsely depress this assay. Reference Range HDL <40 mg/dL Low HDL Cholesterol HDL >or= 60 mg/dL High HDL Cholesterol Serum or plasma cholesterol in VLDL measurement (mass/volume)on 10-22-2021 Cholesterol in VLDL [Mass/Vol] 16 mg/dL 5-40 [facility] Work Phone: Serum or plasma low density lipoprotein (LDL) cholesterol measurement (mass/volume)on 10-22-2021 Cholesterol in LDL [Mass/Vol] 91 mg/dL 0-130 [facility] Work Phone: Thin prep Papanicolaou smear with manual screeningon 10-22-2021 Thin prep Papanicolaou smear with manual screening 18 U/L 15-37 [facility] Work Phone: Stool gastrointestinal hemog lobin detection by immunologic method Lower GI hemoglobin IA Ql (Stl) [facility] Work Phone: Vital Signs Date Time Vital Sign Value Performing Clinician Faci lity 07-03-2023 09:15-0500 Body height 165.[address] Luis M Lama Work Phone: [facility] 07-03-2023 09:15-0500 Body mass index (BMI) [Ratio] 26.1 kg/m2 Dr. Luis M Lama Work Phone: [facility] 07-03-2023 09:15-0500 Body weight 71.[address] Luis M Lama Work Phone: [facility] 07-03-2023 09:15-0500 Diastolic blood pressure 55 mm[Hg] Dr. Luis M Lama Work Phone: [facility] 07-03-2023 09:15-0500 Heart rate 36 /min Dr. Luis M Lama Work Phone: [facility] 07-03-2023 09:15-0500 Respiratory rate 16 /min Dr. Luis M Lama Work Phone: [facility] 07-03-2023 09:15-0500 Systolic blood pressure 121 mm[Hg] Dr. Luis M Lama Work Phone: [facility] 05-31-2023 10:19-0500 Body height 165.[address] Luis M Lama Work Phone: [facility] 05-31-2023 10:19-0500 Body mass index (BMI) [Ratio] 27.6 kg/m2 Dr. Luis M Lama Work Phone: [facility] 05-31-2023 10:19-0500 Body weight 75.[address] Luis M Lama Work Phone: [facility] 05-31-2023 10:19-0500 Diastolic blood pressure 64 mm[Hg] Dr. Luis M Lama Work Phone: [facility] 05-31-2023 10:19-0500 Heart rate 44 /min Dr. Luis M Lama Work Phone: [facility] 05-31-2023 10:19-0500 Respiratory rate 18 /min Dr. Luis M Lama Work Phone: [facility] 05-31-2023 10:19-0500 Systolic blood pressure 126 mm[Hg] Dr. Luis M Lama Work Phone: [facility] 03-24-2023 14:27-0500 Body height 165.[address] Luis M Lama Work Phone: [facility] 03-24-2023 14:27-0500 Body mass index (BMI) [Ratio] 25.7 kg/m2 Dr. Luis M Lama Work Phone: [facility] 03-24-2023 14:27-0500 Body temperature 98 [degF] Dr. Luis M Lama Work Phone: [facility] 03-24-2023 14:27-0500 Body weight 70.[address] Luis M Lama Work Phone: [facility] 03-24-2023 14:27-0500 Diastolic blood pressure 77 mm[Hg] Dr. Luis M Lama Work Phone: [facility] 03-24-2023 14:27-0500 Heart rate 50 /min Dr. Luis M Lama Work Phone: [facility] 03-24-2023 14:27-0500 Respiratory rate 18 /min Dr. Luis M Lama Work Phone: [facility] 03-24-2023 14:27-0500 SaO2% (BldA) [Mass fraction] 99 % Dr. Luis M Lama Work Phone: [facility] 03-24-2023 14:27-0500 Systolic blood pressure 147 mm[Hg] Dr. Luis M Lama Work Phone: [facility] 12-23-2022 11:38-0400 Body temperature 98.5 [degF] Dr. Luis M Lama Work Phone: [facility] 12-23-2022 11:38-0400 Diastolic blood pressure 80 mm[Hg] Dr. Luis M Lama Work Phone: [facility] 12-23-2022 11:38-0400 Heart rate 50 /min Dr. Luis M Lama Work Phone: [facility] 12-23-2022 11:38-0400 Respiratory rate 12 /min Dr. Luis M Lama Work Phone: [facility] 12-23-2022 11:38-0400 SaO2% (BldA) [Mass fraction] 98 % Dr. Luis M Lama Work Phone: [facility] 12-23-2022 11:38-0400 Systolic blood pressure 160 mm[Hg] Dr. Luis M Lama Work Phone: [facility] 10-31-2022 08:53-0400 Body height 166.[address] Luis M Lama Work Phone: [facility] 10-31-2022 08:53-0400 Body mass index (BMI) [Ratio] 27.8 kg/m2 Dr. Luis M Lama Work Phone: [facility] 10-31-2022 08:53-0400 Body weight 77.[address] Luis M Lama Work Phone: [facility] 10-31-2022 08:53-0400 Diastolic blood pressure 68 mm[Hg] Dr. Luis M Lama Work Phone: [facility] 10-31-2022 08:53-0400 Heart rate 52 /min Dr. Luis M Lama Work Phone: [facility] 10-31-2022 08:53-0400 Respiratory rate 18 /min Dr. Luis M Lama Work Phone: [facility] 10-31-2022 08:53-0400 SaO2% (BldA) [Mass fraction] 94 % Dr. Luis M Lama Work Phone: [facility] 10-31-2022 08:53-0400 Systolic blood pressure 121 mm[Hg] Dr. Luis M Lama Work Phone: [facility] 10-22-2022 15:59-0400 Diastolic blood pressure 95 mm[Hg] Dr. Luis M Lama Work Phone: [facility] 10-22-2022 15:59-0400 Heart rate 75 /min Dr. Luis M Lama Work Phone: [facility] 10-22-2022 15:59-0400 Respiratory rate 15 /min Dr. Luis M Lama Work Phone: [facility] 10-22-2022 15:59-0400 SaO2% (BldA) [Mass fraction] 98 % Dr. Luis M Lama Work Phone: [facility] 10-22-2022 15:59-0400 Systolic blood pressure 162 mm[Hg] Dr. Luis M Lama Work Phone: [facility] 10-22-2022 13:41-0400 Body height 166.[address] Luis M Lama Work Phone: [facility] 10-22-2022 13:41-0400 Body mass index (BMI) [Ratio] 27.6 kg/m2 Dr. Luis M Lama Work Phone: [facility] 10-22-2022 13:41-0400 Body temperature 96.9 [degF] Dr. Luis M Lama Work Phone: [facility] 10-22-2022 13:41-0400 Body weight 76.[address] Luis M Lama Work Phone: [facility] 08-03-2022 15:45-0400 Body height 166.[address] Luis M Lama Work Phone: [facility] 08-03-2022 15:43-0400 Body mass index (BMI) [Ratio] 29.2 kg/m2 Dr. Luis M Lama Work Phone: [facility] 08-03-2022 15:43-0400 Body weight 79.[address] Luis M Lama Work Phone: [facility] 08-03-2022 15:43-0400 Diastolic blood pressure 83 mm[Hg] Dr. Luis M Lama Work Phone: [facility] 08-03-2022 15:43-0400 Heart rate 55 /min Dr. Luis M Lama Work Phone: [facility] 08-03-2022 15:43-0400 Respiratory rate 18 /min Dr. Luis M Lama Work Phone: [facility] 08-03-2022 15:43-0400 SaO2% (BldA) [Mass fraction] 99 % Dr. Luis M Lama Work Phone: [facility] 08-03-2022 15:43-0400 Systolic blood pressure 152 mm[Hg] Dr. Luis M Lama Work Phone: [facility] 06-27-2022 09:47-0500 Body height 166.[address] Luis M Lama Work Phone: [facility] 06-27-2022 09:47-0500 Body mass index (BMI) [Ratio] 27.1 kg/m2 Dr. Luis M Lama Work Phone: [facility] 06-27-2022 09:47-0500 Body temperature 98 [degF] Dr. Luis M Lama Work Phone: [facility] 06-27-2022 09:47-0500 Body weight 75.[address] Luis M Lama Work Phone: [facility] 06-27-2022 09:47-0500 Diastolic blood pressure 70 mm[Hg] Dr. Luis M Lama Work Phone: [facility] 06-27-2022 09:47-0500 Heart rate 52 /min Dr. Luis M Lama Work Phone: [facility] 06-27-2022 09:47-0500 Respiratory rate 18 /min Dr. Luis M Lama Work Phone: [facility] 06-27-2022 09:47-0500 SaO2% (BldA) [Mass fraction] 96 % Dr. Luis M Lama Work Phone: [facility] 06-27-2022 09:47-0500 Systolic blood pressure 126 mm[Hg] Dr. Luis M Lama Work Phone: [facility] 04-13-2022 10:49-0500 Body height 166.[address] Luis M Lama Work Phone: [facility] Work Phone: 04-13-2022 10:46-0500 Body mass index (BMI) [Ratio] 28.8 kg/m2 Dr. Luis M Lama Work Phone: [facility] 04-13-2022 10:46-0500 Body weight 78.[address] Luis M Lama Work Phone: [facility] 04-13-2022 10:46-0500 Diastolic blood pressure 70 mm[Hg] Dr. Luis M Lama Work Phone: [facility] 04-13-2022 10:46-0500 Heart rate 58 /min Dr. Luis M Lama Work Phone: [facility] 04-13-2022 10:46-0500 Respiratory rate 18 /min Dr. Luis M Lama Work Phone: [facility] 04-13-2022 10:46-0500 SaO2% (BldA) [Mass fraction] 100 % Dr. Luis M Lama Work Phone: [facility] 04-13-2022 10:46-0500 Systolic blood pressure 142 mm[Hg] Dr. Luis M Lama Work Phone: [facility] 04-04-2022 13:14-0500 Body mass index (BMI) [Ratio] 27.7 kg/m2 Dr. Luis M Lama Work Phone: [facility] 04-04-2022 13:14-0500 Body temperature 97.4 [degF] Dr. Luis M Lama Work Phone: [facility] 04-04-2022 13:14-0500 Body weight 76.[address] Luis M Lama Work Phone: [facility] 04-04-2022 13:14-0500 Diastolic blood pressure 66 mm[Hg] Dr. Luis M Lama Work Phone: [facility] 04-04-2022 13:14-0500 Heart rate 60 /min Dr. Luis M Lama Work Phone: [facility] 04-04-2022 13:14-0500 Respiratory rate 18 /min Dr. Luis M Lama Work Phone: [facility] 04-04-2022 13:14-0500 SaO2% (BldA) [Mass fraction] 98 % Dr. Luis M Lama Work Phone: [facility] 04-04-2022 13:14-0500 Systolic blood pressure 147 mm[Hg] Dr. Luis M Lama Work Phone: [facility] 10-21-2021 10:07-0400 Body height 165.[address] Luis M Lama Work Phone: [facility] Work Phone: 10-21-2021 10:07-0400 Body mass index (BMI) [Ratio] 29.5 kg/m2 Dr. Luis M Lama Work Phone: [facility] Work Phone: 10-21-2021 10:07-0400 Body weight 80.[address] Luis M Lama Work Phone: [facility] Work Phone: 10-21-2021 10:07-0400 Diastolic blood pressure 64 mm[Hg] Dr. Luis M Lama Work Phone: [facility] Work Phone: 10-21-2021 10:07-0400 Heart rate 56 /min Dr. Luis M Lama Work Phone: [facility] Work Phone: 10-21-2021 10:07-0400 Respiratory rate 16 /min Dr. Luis M Lama Work Phone: [facility] Work Phone: 10-21-2021 10:07-0400 Systolic blood pressure 130 mm[Hg] Dr. Luis M Lama Work Phone: [facility] Work Phone: Encounters Encounter Date Encounter Type Care Provider Facility Start: 10-16-2024 ambulatory Luis M [facility] Start: 10-09-2024 ambulatory Luis M [facility]: [facility] Start: 10-02-2024 ambulatory Luis M [facility]: [facility] Start: 09-25-2024 ambulatory Luis M [facility]: [facility] Start: 09-18-2024 ambulatory Luis M [facility]: [facility] Start: 09-11-2024 ambulatory [facility]: [facility] Start: 09-06-2024 End: 09-06-2024 ambulatory Luis M Lama Facility:[facility] Start: 09-04-2024 ambulatory Luis M Lama [facility]: [facility] Start: 08-28-2024 ambulatory Luis M Lama Facility: [facility] Start: 08-21-2024 ambulatory Luis M Lama Facility: [facility] Start: 08-14-2024 ambulatory Luis M Lama Facility: [facility] Start: 08-07-2024 ambulatory Luis M [facility] Facility: [facility] Start: 07-31-2024 ambulatory Luis M [facility] Facility: [facility] Start: 07-24-2024 ambulatory Luis M Lama Facility: [facility] Start: 07-17-2024 ambulatory Luis M Lama [facility]: [facility] Start: 07-11-2024 End: 07-11-2024 ambulatory Luis M Lama Facility:[facility] Start: 07-04-2024 End: 07-04-2024 ambulatory Luis M Lama Facility:[facility] Start: 06-17-2024 ambulatory Luis M Lama [facility]: [facility] Start: 05-20-2024 End: 05-20-2024 ambulatory Luis M Lama Facility:[facility] Start: 05-08-2024 ambulatory Luis M Lama Facility: [facility] Start: 04-23-2024 End: 04-23-2024 ambulatory Luis M Lama Facility:[facility] Start: 03-27-2024 End: 04-06-2024 ambulatory Luis M Lama Facility:[facility] Start: 03-22-2024 End: 03-22-2024 ambulatory Luis M Lama Facility:[facility] Start: 03-05-2024 End: 03-05-2024 ambulatory Shawna Oswald NP Facility:[facility] Start: 02-21-2024 End: 02-21-2024 ambulatory Luis M Lama [facility] Start: 01-10-2024 End: 01-10-2024 ambulatory Gurdeep Martinez Facility:[facility] Start: 01-03-2024 ambulatory Gurdeep Matrinez Facility :[facility] Start: 01-03-2024 End: 01-05-2024 Evaluation and management of inpatient Luis M Lama Facility:[facility] Start: 01-03-2024 End: 01-03-2024 ambulatory Luis M Lama [facility] Start: 12-25-2023 End: 12-25-2023 ambulatory Luis M Lama Facility:[facility] Start: 12-12-2023 End: 12-13-2023 ambulatory Luis M Lama Facility:[facility] Start: 11-27-2023 End: 12-06-2023 ambulatory Luis M Lama Facility:[facility] Start: 10-23-2023 End: 10-23-2023 ambulatory Luis M Lama Facility:[facility] Start: 09-04-2023 End: 09-05-[address] Luis M Lama Work Phone: [facility] Work Phone: Start: 09-04-2023 End: 09-05-[address] Luis M Lama Work Phone: [facility] Work Phone: Start: 08-16-2023 End: 08-16-[address] Luis M Lama Work Phone: [facility] Work Phone: Start: 08-16-2023 End: 08-16-[address] Luis M Lama Work Phone: [facility] Work Phone: Start: 07-31-2023 End: 08-06-[address] Luis M Lama Work Phone: [facility] Work Phone: Start: 07-31-2023 End: 08-06-[address] Luis M Lama Work Phone: [facility] Work Phone: Start: 07-03-2023 End: 07-03-[address] Luis M Lama Work Phone: [facility] Work Phone: Start: 07-03-2023 End: 07-06-[address] Luis M Lama Work Phone: [facility] Work Phone: Start: 07-03-2023 End: 07-06-[address] [facility] Start: 06-28-2023 Non-patient / Non-visit Dr. Julianna Lama Work Phone: [facility] Start: 06-28-2023 End: 06-28-[address] [facility] Work [facility] Start: 06-07-2023 Non-patient / Non-visit Dr. Julianna Lama Work Phone: [facility] Work Phone: Start: 06-07-2023 End: 06-07-[address] [facility] Work [facility]: Start: 05-31-2023 End: 05-31-[address] Luis M Lama Work Phone: [facility] Work Phone: Start: 05-31-2023 End: 05-31-[address] [facility] Start: 05-31-2023 End: 05-31-[address] Luis M Lama Work Phone: [facility] Work Phone: Start: 05-04-2023 End: 05-04-[address] Luis M Lama Work Phone: [facility] Work Phone: Start: 05-04-2023 End: 05-04-[address] Luis M Lama Work Phone: [facility] Work Phone: Start: 04-24-2023 End: 05-07-[address] Luis M Lama Work Phone: [facility] Work Phone: Start: 03-31-2023 Non-patient / Non-visit Dr. Julianna Lama Work Phone: [facility] Start: 03-31-[address] Luis M phillips [facility] Start: 03-27-2023 End: 04-06-[address] Luis M Lama Work Phone: [facility] Work Phone: Start: 03-27-2023 End: 04-06-[address] Luis M Lama Work Phone: [facility] Work Phone: Start: 03-24-2023 End: 03-24-[address] Luis M Lama Work Phone: [facility] Work Phone: Start: 02-27-2023 End: 02-27-[address] Luis M Lama Work Phone: [facility] Work Phone: Start: 02-27-2023 End: 02-27-[address] Luis M Lama Work Phone: [facility] Work Phone: Start: 01-30-2023 End: 01-30-[address] Luis M Lama Work Phone: [facility] Work Phone: Start: 01-02-2023 End: 01-02-[address] Luis M Lama Work Phone: [facility] Work Phone: Start: 12-29-2022 End: 12-29-[address] Luis M Lama Work Phone: [facility] Work Phone: Start: 12-23-2022 End: 12-23-[address] Luis M Lama Work Phone: [facility] Work Phone: Start: 12-05-2022 End: 12-05-[address] Luis M Lama Work Phone: [facility] Work Phone: Start: 12-05-2022 End: 12-05-[address] Luis M Lama Work Phone: [facility] Work Phone: Start: 11-21-2022 End: 11-21-[address] Luis M Lama Work Phone: [facility] Work Phone: Start: 11-21-2022 End: 11-21-[address] [facility] Start: 11-14-2022 End: 11-14-[address] Luis M Lama Work Phone: [facility] Work Phone: Start: 11-14-2022 End: 11-14-[address] [facility] Start: 11-09-2022 End: 11-09-[address] Luis M Lama Work Phone: [facility] Work Phone: Start: 10-31-2022 End: 10-31-[address] Luis M Lama Work Phone: [facility] Work Phone: Start: 10-22-2022 End: 10-22-2022 Emergency department patient visit Dr. [facility] M [facility] Start: 10-10-2022 End: 10-10-[address] Luis M Lama Work Phone: [facility] Start: 09-12-2022 End: 09-12-[address] Luis M Lama Work Phone: [facility] Work Phone: Start: 09-12-2022 End: 09-12-[address] Luis M Lama Work Phone: [facility] Start: 08-22-2022 End: 09-04-[address] Luis M Lama Work Phone: [facility] Start: 08-08-[address] Luis M Lama Work Phone: [facility] Start: 08-03-2022 End: 08-03-[address] Luis M Lama Work Phone: [facility] Start: 08-01-2022 End: 08-01-[address] Luis M Lama Work Phone: [facility] Work Phone: Start: 08-01-2022 End: 08-01-[address] Luis M Lama Work Phone: [facility] Start: 07-25-2022 End: 07-25-[address] Luis M Lama Work Phone: [facility] Work Phone: Start: 07-25-2022 End: 07-25-[address] Luis M Lama Work Phone: [facility] Start: 07-21-2022 End: 07-21-[address] Luis M Lama Work Phone: [facility] Work Phone: Start: 07-21-2022 End: 07-21-[address] Luis M Lama Work Phone: [facility] Start: 07-18-2022 End: 07-18-[address] Luis M Lmaa Work Phone: [facility] Work Phone: Start: 07-18-2022 End: 07-18-[address] [facility] Start: 06-27-2022 End: 06-27-[address] Luis M Lama Work Phone: [facility] Start: 04-13-2022 End: 04-13-[address] Luis M Lama Work Phone: [facility] Start: 04-11-2022 End: 04-11-[address] Luis M Lama Work Phone: [facility] Work Phone: Start: 04-11-2022 End: 04-11-[address] Luis M Lama Work Phone: [facility] Start: 04-05-2022 End: 04-05-[address] Luis M Lama Work Phone: [facility] Start: 04-04-2022 End: 04-04-[address] Luis M Lama Work Phone: [facility] Start: 03-17-2022 End: 03-17-2022 ambulatory [facility] Work Phone: Start: 03-17-2022 End: 03-17-2022 Patient encounter procedure [facility] Start: 10-22-2021 End: 10-22-[address] Luis M Lama Work Phone: [facility] Start: 10-21-2021 End: 10-21-[address] Luis M Lama Work Phone: [facility] Start: 07-23-[address] Luis M phillips Work Phone: [facility] Procedures Date Procedure Procedure Detail Performing Clinician Start: 12-29-[address] Luis M Lama Work Phone: Start: 10-22-2022 Plain chest X-ray Dr. Ji aLma Work Phone: Start: 10-22-2022 CT of head without contrast Dr. Luis M Lama Work Phone: Start: 04-05-2022 Screening mammography Vinny Lama Work Phone: Measurement of occul t blood in stool specimen using immunoassay Dr. Luis M Lama Work Phone: Measurement of occul t blood in stool specimen using immunoassay Dr. Luis M Lama Work Phone: Plan of Treatment Date Care Activity Detail Author Patient Education AFib Dc [facility] Work Phone: Patient referral [facility] Work Phone: Immunizations Immunization Date Immunization Notes Care Provider Fa cilimercedes 06-25-2020 Covid ([employer]) Dr. Luis M woo Work Phone: [facility] 05-28-2020 Covid ([employer]) Dr. Luis M woo Work Phone: [facility] Payers Date Payer Category Payer Unknown [id number] 2023 Self-pay [id number] 2015 Private Health Insurance [id number] 2002 Medicare [id number] Unknown [id number] 2.16.8 40.1.446574.3.579.2.462 Unknown [id number] 2.16.8 40.1.821889.3.579.2.462 Unknown [id number] 2.16.8 40.1.436540.3.579.2.462 Unknown [id number] 2.16.8 40.1.048675.3.579.2.462 Unknown [id number] 2.16.8 40.1.253002.3.579.2.462 Unknown [id number] 2.16.8 40.1.196805.3.579.2.462 Unknown [id number] 2.16.8 40.1.405007.3.579.2.462 Unknown [id number] 2.16.8 40.1.559240.3.579.2.462 Unknown [id number] 2.16.8 40.1.579273.3.579.2.462 Unknown [id number] 2.16.8 40.1.126388.3.579.2.462 Unknown [id number] 2.16.8 40.1.960559.3.579.2.462 Unknown [id number] 2.16.8 40.1.620891.3.579.2.462 Unknown [id number] 2.16.8 40.1.662449.3.579.2.462 Unknown [id number] 2.16.8 40.1.334639.3.579.2.462 Unknown [id number] 2.16.8 40.1.817676.3.579.2.462 Unknown [id number] 2.16.8 40.1.545263.3.579.2.462 Unknown [id number] 2.16.8 40.1.689315.3.579.2.462 Unknown [id number] 2.16.8 40.1.709774.3.579.2.462 Unknown [id number] 2.16.8 40.1.293539.3.579.2.462 Unknown [id number] 2.16.8 40.1.337627.3.579.2.462 Unknown [id number] 2.16.8 40.1.202763.3.579.2.462 Unknown [id number] 2.16.8 40.1.251744.3.579.2.462 Unknown [id number] 2.16.8 40.1.233278.3.579.2.462 Unknown [id number] 2.16.8 40.1.266824.3.579.2.462 Unknown [id number] 2.16.8 40.1.905677.3.579.2.462 Unknown [id number] 2.16.8 40.1.922350.3.579.2.462 Unknown [id number] 2.16.8 40.1.618137.3.579.2.462 Unknown [id number] 2.16.8 40.1.772817.3.579.2.462 Unknown [id number] 2.16.8 40.1.398166.3.579.2.462 Unknown [id number] 2.16.8 40.1.252939.3.579.2.462 Unknown [id number] 2.16.8 40.1.670531.3.579.2.462 Unknown [id number] 2.16.8 40.1.289259.3.579.2.462 Unknown [id number] 2.16.8 40.1.492215.3.579.2.462 Unknown [id number] 2.16.8 40.1.450962.3.579.2.462 Unknown [id number] 2.16.8 40.1.194809.3.579.2.462 Unknown [id number] 2.16.8 40.1.955041.3.579.2.462 Unknown [id number] 2.16.8 40.1.958921.3.579.2.462 Unknown [id number] 2.16.8 40.1.233717.3.579.2.462 Unknown [id number] 2.16.8 40.1.199991.3.579.2.462 Unknown [id number] 2.16.8 40.1.745883.3.579.2.462 Social History Date Type Detail Facility Start: 10-21-2021 End: 07-03-2023 Tobacco smoking status NHIS Unknown if ever smoked [facility] Start: 04-17-2018 Non-smoker [facility] Start: 1935 Sex Assigned At Female W [facility] Mental Status Date Assessment Result Facility 10-22-2022 Cognitive function Awake;Alert;A ppropriate;Fol lows Commands [facility] Work Phone: Clinical Notes 08-06-2017 to 01-05-2024 Note Date & Type Note Facility 01-05-2024 Note [facility] Medical Records Department [facility] [place] [address] Discharge Summary 01/05/24 1238 MR#: [id number] Acct: [id number] Name: ELIZABETH CHEATHAM Rep #: [id number] : 1935 88 From: Luis M Cortés DO PCP: Dr. Luis M Lama DO Status:DIS IN Location: [facility] [id number] Providers Date of Admission: 01/03/24 Date of Discharge: 01/05/24 Primary Care Physician: Dr. Luis M Lama DO Consultations 01/03/24 12:18 Consult: Cardiology Routine Consulting Provider: Gurdeep Martinez Reason for Consult: A-FIB EMERGENT Consult: No MD Notified: Yes Date Notified: 01/03/24 Time Notified: 11:51 Method of Notification: Verbal Reason For Visit: UNCONTROLLED AFIB Diagnosis Discharge Diagnosis (1) Bradycardia: Status: Acute Code(s): R00.1 - Bradycardia, unspecified (2) Paroxysmal A-fib: Status: Chronic Code(s): I48.0 - Paroxysmal atrial fibrillation Plan 1. Paroxysmal A-fib intolerant of xaoq-stecjkoi-bpsygbe remains on Tikosyn 250 mg twice a day, EKGs will be monitored by cardiology #2 essential hypertension-patient will remain on her present medication-she is currently on doxazosin #3 hypothyroidism-patient is on Synthroid #4 long-term use of 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-patient is on warfarin Total clinical time spent by myself addressing the patient's medical issues, reviewing all of her data, and collaborating with patient's care team: 35 minutes Medications at Discharge Home Medications latanoprost 0.005 % eye drops 1 drp ophthalmic (eye) QHS eyes 09/12/16 levothyroxine 75 mcg tablet 75 mcg PO DAILY hypothyroid 02/27/20 warfarin 4 mg tablet 4 mg PO .COMPLEX anticoag #135 tabs 10/09/23 gabapentin 100 mg capsule 200 mg PO QHS neuropathy 12/12/23 lorazepam 0.5 mg tablet 0.5 mg PO QHS sleep 12/12/23 timolol maleate 0.5 % eye drops 1 drp ophthalmic (eye) BID eye health 12/12/23 vit C 250 mg-vit E 90 mg-zinc 40 mg-copper 1 rq-eweifj-goormz capsule (PreserVision AREDS-2) 1 tab PO BID eye health 12/12/23 doxazosin 2 mg tablet 2 mg PO QHS #30 tabs 12/19/23 dofetilide 125 mcg capsule 125 mcg PO Q12 #60 caps 01/05/24 Hospital Course Operations None Procedures None Summary of Care Provided Minutes Spent on Discharge: 31 Hospital Course: This 88-year-old white female was directly admitted to PCU from Dr. Shoaib Martinez' office due to bradycardia and uncontrolled A-fib. Patient was intolerant to beta-blockers and cardiology recommended institution of Tikosyn which required hospitalization. Patient was admitted to PCU, she was monitored and serial EKGs were obtained after administration of Tikosyn, her dose was finally reduced to 125 mg twice a day at the time of discharge. Patient had no untoward events during her hospitalization, she remained in sinus bradycardia for most of her hospitalization. On 01/05/2024, patient was seen and examined: On examination she appeared in good health and spirits, she does not appear to be in any distress. Vital signs as documented. Skin warm and dry and without overt rashes. Neck without JVD, thyroid appears normal, trachea is midline, neck is supple. Lungs clear, normal air movement was noted. Heart exam notable for regular rhythm, normal sounds and absence of murmurs, rubs or gallops. Abdomen unremarkable and without evidence of organomegaly, masses, or abdominal aortic enlargement, bowel sounds are present in all 4 quadrants, no abdominal tenderness was noted. Extremities nonedematous, no cyanosis was noted, no clubbing was noted. Neuro: Cranial nerves II through XII are grossly intact, no focal motor deficits were noted, sensation to light touch and pinprick is intact, motor exam 5/5 throughout. Psych: Patient is alert and oriented x3, she does not appear anxious or depressed, she does not appear agitated. Patient was discharged home in stable condition on 01/05/2024. Weight / BMI Weight Weight: 69.3 kg Body Mass Index (BMI) 25.4 ABG / Lab / Microbiology Data 01/03/24 12:36 01/04/24 05:51 D/C Instructions Discharge Diet: No restrictions Weight Bearing Status: Full weight bearing Meaningful Use Info Meaningful Use Meaningful Use Diagnoses (Choose all that apply): None applicable Ischemic Stroke Statin Dosing Therapy Reference: STATIN DOSE THERAPY REFERENCE: * Patients > 75 years receive moderate or high dose statin therapy. * Patients 75 years or YOUNGER should receive HIGH intensity statin dose unless contraindicated. You will be required to document reason for non-treatment if statin daily dose does not meet guidelines. HIGH DOSE STATIN THERAPY DAILY Atorvastatin > than or = to 40 mg Rosuvastatin > than or = to 20 mg Amlodipine + Atorvastatin > than or = to 2.5/40 mg Ezetimibe + Simvastatin 10/80 mg Simvastatin 80mg Discharge Plan Admission Admi (more content not included)... 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 Paroxysmal A-fib [facility] Work Phone: 1(809) 433-169704-01-2018 Evaluation note* Diagnosis Onset Date Resolution Status Family history of colon cancer in mother acute Personal history of colonic polyps acute On amiodarone therapy acute History of radiofrequency ab lation procedure for cardiac arrhythmia August, 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 chronic Paroxysmal A-fib chronic Bradycardia acute 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 Paroxysmal A-fib [facility] Work Phone: 1(714) 706-341904-01-2018 Evaluation note* Diagnosis Onset Date Resolution Status On amiodarone therapy acute History of radiofrequency ab lation procedure for cardiac arrhythmia August, 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 chronic Paroxysmal A-fib chronic Bradycardia acute 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 Paroxysmal A-fib [facility] Work Phone: evaluation note* Diagnosis Onset Date Resolution Status Fatigue acute Essential hypertension chron ic Paroxysmal A-fib chronic Pure hypercholesterolemia [facility] Work Phone: Evaluation noteNo assessment information available [facility] Work Phone: Evaluation note* Diagnosis Onset Date Resolution Status Family history of colon cancer in mother acute Personal history of colonic polyps acute Essential hypertension chron ic Paroxysmal A-fib chronic Pure hypercholesterolemia [facility] Work Phone: Evaluation note* Diagnosis Onset Date Resolution Status Family history of colon cancer in mother acute Personal history of colonic polyps acute Essential hypertension chron ic Paroxysmal A-fib chronic Pure hypercholesterolemia [facility] Acute bronchitis acute [facility] Work Phone: Evaluation note* Diagnosis Onset Date Resolution Status Essential hypertension chron ic Paroxysmal A-fib chronic Pure hypercholesterolemia ch ronic Acute bronchitis acute Essential hypertension chron ic Paroxysmal A-fib chronic Pure hypercholesterolemia ch [facility] Work Phone: Evaluation note* Diagnosis Onset Date Resolution Status Acute bronchitis acute Essential hypertension chron ic Paroxysmal A-fib chronic Pure hypercholesterolemia ch [facility] Work Phone: Evaluation note* Diagnosis Onset Date Resolution Status Essential hypertension chron ic Paroxysmal A-fib chronic Pure hypercholesterolemia ch ronic Essential hypertension chron ic Paroxysmal A-fib chronic Pure hypercholesterolemia [facility] Work Phone: Evaluation note* Diagnosis Onset Date Resolution Status Essential hypertension chron ic Paroxysmal A-fib chronic Pure hypercholesterolemia [facility] Work Phone: Evaluation note* Diagnosis Onset Date Resolution Status Dysfunction of right eustachian tube acute [facility] Work Phone: Evaluation note* Diagnosis Onset Date Resolution Status Dysfunction of right eustachian tube acute Family history of colon cancer in mother acute Personal history of colonic polyps acute [facility] Work Phone: Evaluation note* Diagnosis Onset Date Resolution Status Family history of colon cancer in mother acute Personal history of colonic polyps acute [facility] Work Phone: Hospital Discharge instructions Additional Instructions Thank you for trusting us with your care today! Please continue to take your home blood pressure medicine as prescribed. Please return to the emergency department if your symptoms change or worsen. Specifically develop focal weakness, numbness, slurred speech, loss of vision, chest pain, shortness of breath if you lose consciousness. Please follow with your primary care physician, fruit washer for further outpatient evaluation and management of your blood pressure medication.[facility] Work Phone: Chief Complaint and Reason for Visit Chief Complaint BAREBACK RIDER 9 M FU EORDER Reason for Visit Fatigue Essential hypertension Paroxysmal A-fib Pure hypercholesterolemia Chief Complaint CSCOPE SCREENING/ ADD EORDER LABS- STOOL- EORDER 6 M FU Reason for Visit Family history of co jake cancer in mother Personal history of colonic polyps Essential hypertension Paroxysmal A-fib Pure hypercholesterolemia Chief Complaint CSCOPE SCREENING/ ADD EORDER LABS- STOOL- EORDER 6 M FU POSSIBLE STREP THROAT HOMEDRAW LABWORK Paroxysmal atrial fibrillation Reason for Visit Family history of co jake cancer in mother Personal history of colonic polyps Essential hypertension Paroxysmal A-fib Pure hypercholesterolemia Acute bronchitis Chief Complaint CSCOPE SCREENING/ ADD EORDER LABS- STOOL- EORDER 6 M FU POSSIBLE STREP THROAT HOMEDRAW LABWORK Paroxysmal atrial fibrillation HOME DRAW LABWORK Reason for Visit Family history of co jake cancer in mother Personal history of colonic polyps Essential hypertension Paroxysmal A-fib Pure hypercholesterolemia Acute bronchitis Chief Complaint EORDER 6 M FU POSSIBLE STREP THROAT HOMEDRAW LABWORK Paroxysmal atrial fibrillation HOME DRAW LABWORK HOME DRAW A FIB, HOLTER 07/21 INR- Reason for Visit Essential hypertensi on Paroxysmal A-fib Pure hypercholesterolemia Acute bronchitis Essential hypertension Paroxysmal A-fib Pure hypercholesterolemia Chief Complaint POSSIBLE STREP THROA T HOMEDRAW LABWORK Paroxysmal atrial fibrillation HOME DRAW LABWORK HOME DRAW A FIB, HOLTER 07/21 INR- LABWORK Reason for Visit Acute bronchitis Essential hypertension Paroxysmal A-fib Pure hypercholesterolemia Chief Complaint POSSIBLE STREP THROA T HOMEDRAW LABWORK Paroxysmal atrial fibrillation HOME DRAW LABWORK HOME DRAW A FIB, HOLTER 07/21 INR- LABWORK HOME DRAW LAB WORK AFIB Reason for Visit Acute bronchitis Essential hypertension Paroxysmal A-fib Pure hypercholesterolemia Chief Complaint HOME DRAW LABWORK HOME DRAW A FIB, HOLTER 07/21 INR- LABWORK HOME DRAW LAB WORK AFIB 6 M FU EKG PER MMM STARTED AMIO HOMEDRAW LABWORK Reason for Visit Essential hypertensi on Paroxysmal A-fib Pure hypercholesterolemia Essential hypertension Paroxysmal A-fib Pure hypercholesterolemia Chief Complaint HOME DRAW A FIB, HOLTER 16 INR- LABWORK HOME DRAW LAB WORK AFIB 6 M FU EKG PER MMM STARTED AMIO HOMEDRAW LABWORK HOME DRAW LAB WORK Reason for Visit Essential hypertensi on Paroxysmal A-fib Pure hypercholesterolemia Essential hypertension Paroxysmal A-fib Pure hypercholesterolemia Chief Complaint INR- LABWORK HOME DRAW LAB WORK AFIB 6 M FU EKG PER MMM STARTED AMIO HOMEDRAW LABWORK HOME DRAW LAB WORK HOMEDRAW LABWORK Reason for Visit Essential hypertensi on Paroxysmal A-fib Pure hypercholesterolemia Chief Complaint EKG PER MMM STARTED AMIO HOMEDRAW LABWORK HOME DRAW LAB WORK HOMEDRAW LABWORK CHECK TO SEE IF WAX IN EARS INR- INR- INR- Reason for Visit Dysfunction of right eustachian tube Chief Complaint CHECK TO SEE IF WAX IN EARS INR- INR- INR- RECALL LETTER- 5 YR SCOPE INR- SCREENING - SR PARTNERS Reason for Visit Dysfunction of right eustachian tube Family history of colon cancer in mother Personal history of colonic polyps Chief Complaint INR- INR- RECALL LETTER- 5 YR SCOPE INR- SCREENING - SR PARTNERS INR- ADD EORDER AND ADDT ORDER Reason for Visit Family history of co jake cancer in mother Personal history of colonic polyps Chief Complaint INR- RECALL LETTER- 5 YR SCOPE INR- SCREENING - SR PARTNERS INR- ADD EORDER AND ADDT ORDER 4 m fu PREV PFM PT INR- ADD EORDER AND ADDT ORDER AFIB Reason for Visit Family history of co jake cancer in mother Personal history of colonic polyps On amiodarone therapy History of radiofrequency ablation procedure for cardiac arrhythmia 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 Paroxysmal A-fib Chief Complaint RECALL LETTER- 5 YR SCOPE INR- SCREENING - SR PARTNERS INR- ADD EORDER AND ADDT ORDER 4 m fu PREV PFM PT INR- ADD EORDER AND ADDT ORDER AFIB Atrial fibrillation AFIB s/o INR 1 M FU Reason for Visit Family history of co jake cancer in mother Personal history of colonic polyps On amiodarone therapy History of radiofrequency ablation procedure for cardiac arrhythmia FPC current use of 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 Paroxysmal A-fib Bradycardia Essential hypertension FPC current use of 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 Paroxysmal A-fib Chief Complaint INR- ADD EORDER AND ADDT ORDER 4 m fu PREV PFM PT INR- ADD EORDER AND ADDT ORDER AFIB Atrial fibrillation AFIB s/o INR 1 M FU s/o INR ADD ORDER FROM DR LAMA 07/31/23 Reason for Visit On amiodarone therap y History of radiofrequency ablation procedure for cardiac arrhythmia 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 Paroxysmal A-fib Bradycardia 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 Paroxysmal A-fib Chief Complaint 4 m fu PREV PFM PT INR- ADD EORDER AND ADDT ORDER AFIB Atrial fibrillation AFIB s/o INR 1 M FU s/o INR ADD ORDER FROM DR LAMA 07/31/23 Reason for Visit On amiodarone therap y History of radiofrequency ablation procedure for cardiac arrhythmia FPC current use of 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 Paroxysmal A-fib Bradycardia 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 Paroxysmal A-fib Chief Complaint 4 m fu PREV PFM PT INR- ADD EORDER AND ADDT ORDER AFIB Atrial fibrillation AFIB s/o INR 1 M FU s/o INR ADD ORDER FROM DR LAMA 07/31/23 s/o INR Reason for Visit On amiodarone therap y History of radiofrequency ablation procedure for cardiac arrhythmia 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 Paroxysmal A-fib Bradycardia Essential hypertension FPC current use of 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 Paroxysmal A-fib Family History No Family History Records Found Relationship Condition Age at Onset Recorded Date/T inocencio mother Malignant neoplasm Unknown Diabetes mellitus Unknown sister Coronary artery disease Unknown Cardiac disease Unknown Relationship Condition Age at Onset Recorded Date/T inocencio mother Malignant neoplasm Unknown Diabetes mellitus Unknown sister Coronary artery disease Unknown Cardiac disease Unknown son Kidney disorder Unknown Advance Directives No Advanced Directives Records Found Advance Directive Response Recorded Date/ Time Living Will Yes January 26, 2021 5:48am Power of Database Manager Yes January 5:48am Advance Directive Response Recorded Date/ Time Living Will Yes January 26, 2021 4:48am Power of Database Manager Yes January 4:48am Advance Directive Response Recorded Date/ Time Name of Medical Power of Database Manager SIVA CHEATHAM October 22, 2022 2:15pm Living Will Yes October 22, 2022 2:15pm Power of Database Manager Yes October 22 3 2:15pm Advance Directive Response Recorded Date/ Time Living Will Yes October 22, 2022 2:15pm Power of Database Manager Yes October 22 3 2:15pm Advance Directive Response Recorded Date/ Time Living Will Yes October 22, 2022 1:15pm Power of Database Manager Yes October 22 3 1:15pm Summary Purpose Additional Source Comments Goals (unrecognized section and content) Goals may be documented in a n alternate sectionGoals may be documented in an alternate sectionGoals may be documented in an alternate sectionGoals may be documented in an alternate sectionGoals may be documented in an alternate sectionGoals may be documented in an alternate sectionGoals may be documented in an alternate sectionGoals may be documented in an alternate sectionGoals may be documented in an alternate sectionGoals may be documented in an alternate sectionGoals may be documented in an alternate sectionGoals may be documented in an alternate sectionGoals may be documented in an alternate sectionGoals may be documented in an alternate sectionGoals may be documented in an alternate sectionGoals may be documented in an alternate sectionGoals may be documented in an alternate sectionGoals may be documented in an alternate sectionGoals may be documented in an alternate sectionGoals may be documented in an alternate section Care Teams (unrecognized sec tion and content) Team Status: Active Member Role Status Dates Dr. Luis M Lama DO Family Provider Active Dr. Luis M Lama DO Primary Care Provider Active Team Status: Inactive Member Role Status Dates Dr. Luis M Lama DO Primary Care Provider, Referrin g Provider Active Courtney Perales PA, PA Attending Provider Active Team Status: Inactive Member Role Status Dates Dr. Luis M Lama DO Primary Care Provider, Referrin g Provider Active Dr. Antoni Valerio MD Attending Provider Active Team Status: Inactive Member Role Status Dates Dr. Luis M Lama DO Primary Care Provider, Referrin g Provider Active Higinio Montenegro PA, PA Attending Provider Active Team Status: Inactive Member Role Status Dates Dr. Luis M Lmaa DO Primary Care Prov ider, Attending Provider, Referring Provider Active Dr. Antoni Valerio MD Other Provider Active Team Status: Inactive Member Role Status Dates Dr. Luis M Lama DO Primary Care Provider Active Dr. Sebastián Bolaños MD Attending Provider, Referring Provider Active Team Status: Active Member Role Status Dates Dr. Luis M Lama DO Primary Care Provider Active Dr. Sebastián Bolaños MD Attending Provider Active Team Status: Inactive Member Role Status Dates Dr. Luis M Lama DO Primary Care Provider Active Dr. Sebastián Bolaños MD Attending Provider Active Team Status: Inactive Member Role Status Dates Dr. Luis M Lama DO Primary Care Provider, Referrin g Provider Active Shawna Oswald BUTTON TUFTING MACHINE OPERATOR, BUTTON TUFTING MACHINE OPERATOR-C Attending Provider Active Team Status: Active Member Role Status Dates Dr. Luis M Lama DO Primary Care Provider Active Shawna Oswald BUTTON TUFTING MACHINE OPERATOR, BUTTON TUFTING MACHINE OPERATOR-C Attending Provider, Referring P rovider Active Team Status: Inactive Member Role Status Dates Dr. Luis M Lama DO Primary Care Provider Active Shawna Oswald BUTTON TUFTING MACHINE OPERATOR, BUTTON TUFTING MACHINE OPERATOR-C Attending Provider, Referring P rovider Active Team Status: Inactive Member Role Status Dates Dr. Luis M Lama DO Primary Care Provider Active Dr. Estevan Riley , DO Emergency Provider Active Team Status: Inactive Member Role Status Dates Dr. Luis M Lama DO Primary Care Provider Active Dr. Estevan Riley DO Attending Provider, Emergency P rovider Active Team Status: Inactive Member Role Status Dates Dr. Luis M Lama DO Primary Care Prov ider, Attending Provider, Referring Provider Active Team Status: Active Member Role Status Dates Dr. Luis M Lama DO Primary Care Provider Active Self Referred Attending Provider Active Team Status: Active Member Role Status Dates Dr. Luis M Lama DO Primary Care Provider Active Dr. Tommie Swanson MD Attending Provider Active Team Status: Inactive Member Role Status Dates Dr. Luis M Lama DO Primary Care Provider, Other Pr ovider Active Shawna Oswald BUTTON TUFTING MACHINE OPERATOR, BUTTON TUFTING MACHINE OPERATOR-C Attending Provider, Referring P rovider Active Team Status: Inactive Member Role Status Dates Dr. Luis M Lama DO Primary Care Provider, Referrin g Provider Active Courtney Perales PA, PA Active Dr. Gurdeep Martinez MD Attending Provider Active Team Status: Active Member Role Status Dates Dr. Luis M Lama DO Primary Care Provider Active Dr. Gurdeep Martinez MD Attending Provider, Referring Provider Active Team Status: Inactive Member Role Status Dates Dr. Luis M Lama DO Primary Care Provider Active Shawna Oswald BUTTON TUFTING MACHINE OPERATOR, BUTTON TUFTING MACHINE OPERATOR-C Attending Provider, Referring P rovider Active Dr. Gurdeep Martinez MD Other Provider Active Team Status: Inactive Member Role Status Dates Dr. Luis M Lama DO Primary Care Provider, Referrin g Provider Active Dr. Gurdeep Martinez MD Attending Provider Active Team Status: Active Member Role Status Dates Dr. Luis M Lama DO Primary Care Provider Active Dr. Clement Luna MD Attending Provider Active Team Status: Inactive Member Role Status Dates Dr. Luis M Lama DO Primary Care Provider Active Dr. Gurdeep Martinez MD Attending Provider, Referring Provider Active Team Status: Inactive Member Role Status Dates Dr. Luis M Lama DO Primary Care Provider Active Shawna Oswald BUTTON TUFTING MACHINE OPERATOR, BUTTON TUFTING MACHINE OPERATOR-C Attending Provider, Referring P rovider Active Dr. Gurdeep Martinez MD Other Provider Active Hung Keyes BUTTON TUFTING MACHINE OPERATOR, BUTTON TUFTING MACHINE OPERATOR-C Other Provider Active Team Status: Inactive Member Role Status Dates Dr. Luis M Lama DO Primary Care Provider, Other Pr ovider Active Shawna Oswald BUTTON TUFTING MACHINE OPERATOR, BUTTON TUFTING MACHINE OPERATOR-C Attending Provider, Referring P rovider Active Dr. Gurdeep Martinez MD Other Provider Active Hung Keyes BUTTON TUFTING MACHINE OPERATOR, BUTTON TUFTING MACHINE OPERATOR-C Other Provider Active INFORMATION SOURCE (unrecogn ized section and content) DATE CREATED AUTHOR 10/19/2024 [facility] FOR RECORDS PERTAINING TO PATIENTS WHO ARE OR HAVE BEEN ENROLLED IN A CHEMICAL DEPENDENCY/SUBSTANCEABUSE PROGRAM, SOME INFORMATION MAY BE OMITTED. This clinical summary was aggregated from multiple sources. Caution should be exercised in using it in the provision of clinical care. This summary normalizes information from multiple sources, and as a consequence, information in this document may materially change the coding, format and clinical context of patient data. In addition, data may be omitted in some cases. CLINICAL DECISIONS SHOULD BE BASED ON THE PRIMARY CLINICAL RECORDS. [facility]. provides no warranty or guarantee of the accuracy or completeness of information in this document.
[2024-10-19 09:06] LABS: Absolute Neutrophil Count 2.4 X10^3/uL (2.0-7.7); Basophil# 0.02 X10^3/uL; Basophil% 0.5 % (0-1); Eosinophil# 0.02 X10^3/uL; Eosinophils% 0.5 % (0-5); Hematocrit 38.6 % (37-47); Hemoglobin 12.9 g/dL (12.0-15.0); Lymphocyte % 34.3 % (19-41); Mean Corp Hgb Conc 33.4 g/dL (32-36); Mean Corpuscular Hgb 31.9 pg (27.0-32.0); Mean Corpuscular Volume 95.3 fL (81-99); Monocyte% 9.2 % (0-10); NRBC Flagged by Analyzer 0 % (0-5); Neutrophil # 2.42 X10^3/uL (2.7-7.7); Neutrophil % 55.3 % (47-70); Platelet Count 222 K/mm3 (150-450); RBC Distribution Width CV 12.7 % (11.6-14.6); Red Blood Count 4.05 M/mm3 (4.2-5.4); White Blood Count 4.4 K/mm3 (4.4-11.0)
--- NOTE | 2024-10-19 09:25 | RAD_ITS ---
PROCEDURE: CHEST 1 VIEW (PORTABLE) 10/19/2024 REASON FOR EXAM: CHEST PAIN TECHNIQUE: Frontal view of the chest. COMPARISON: 10/22/2022 FINDINGS: Hardware: None Heart: Normal size Lungs: Clear Bones: No aggressive features Other: RAD/Chest 1 View (Portable) IMPRESSION: Negative Reading [facility]
[2024-10-19 09:33] LABS: International Normalized Ratio 2.2; Prothrombin Time (Protime)PT. 24.5 SECONDS (11.7-14.9)
[2024-10-19 10:07] LABS: Anion Gap 10 (5-15); BUN 15 mg/dL (4-19); BUN/Creat Ratio 17.2 RATIO (10-20); Calcium,Total 9.3 mg/dL (7.6-11.0); Carbon Dioxide 24.8 mmol/L (21.0-32.0); Chloride 99 mmol/L (98-108); Creatinine, Serum 0.87 mg/dL (0.70-1.20); EST Glomerular Filtration Rate 64 (>60); Estimated Creatinine Clearance 44.88 ml/min (50-250); Glucose 113 mg/dL (70-99); Potassium 4.1 mmol/L (3.3-5.1); Sodium Level 134 mmol/L (133-145); Troponin T High Sensitivity 16 ng/L (<=14)
[2024-10-19 11:38] LABS: Troponin T High Sens 2 HR 16 ng/L (<=14)
== END 2024-10-19 12:37 | disposition home or self-care (01) ==
PROVIDERS: Emergency Provider Emergency Medicine; PCP Family Medicine; Visit Provider Emergency Medicine
DX: I48.0 Paroxysmal atrial fibrillation (principal); E78.00 Pure hypercholesterolemia, unspecified; Z87.891 Personal history of nicotine dependence; I10 Essential (primary) hypertension; R07.9 Chest pain, unspecified; K21.9 Gastro-esophageal reflux disease without esophagitis; Z79.890 Hormone replacement therapy; Z79.899 Other long term (current) drug therapy; Z79.01 Long term (current) use of 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s
CPT/HCPCS: 71045; 80048; 84484; 85025; 85610; 93005; 99284; A4216

== ENCOUNTER → 2024-10-25 | Outpatient (CLI) | payer MEDICARE, OTHER, SELFPAY ==
--- OUTSIDE RECORDS SUMMARY | 2024-10-25 18:26 | XMS RPT_ITS | CCD ---
Author Organization [facility] Care Team Providers Care Molecular Biology Director Name Role Phone Dr. Luis M Lama Primary Care Provider [phone] Dr. Luis M Lama Referring Provider [phone] Sebastián Bolaños Attending Provider [phone] Dr. Luis M Lama Primary Care Provider [phone] Dr. Luis M Lama Referring Provider [phone] Dr. Antoni Valerio Attending Provider VICTOR M Chairez Attending Provider Dr. Luis M Lama Primary Care Provider [phone] Dr. Luis M Lama Referring Provider Dr. Antoni Valerio Attending Provider VICTOR M Chairez Attending Provider VICTOR M Madison Attending Provider Dr. Luis M Lama Primary Care Provider [phone] Dr. Luis M Lama Referring Provider JUSTICE Plaza NP Attending Provider Dr. Luis M Lama Primary Care Provider [phone] Dr. Luis M Lama Referring Provider [phone] Dr. Luis M Lama Primary Care Provider [phone] Dr. Luis M Lama Referring Provider [phone] VICTOR M Chairez Attending Provider Dr. Luis M Lama Primary Care Provider [phone] Dr. Luis M Lama Referring Provider Dr. Luis M Lama Primary Care Provider [phone] Luis M Lama Referring Provider [phone] VICTOR M Chairez Attending Provider VICTOR M Madison Attending Provider [phone] Dr. Luis M Lama Primary Care Provider [phone] Luis M Lama Referring Provider VICTOR M Madison Attending Provider [phone] Dr. Antoni Valerio Attending Provider Dr. Luis M Lama Primary Care Provider [phone] Luis M Lama Referring Provider Dr. Tommie Swanson Attending Provider [phone] Dr. Gurdeep Martinez Attending Provider [phone] Dr. Gurdeep Martinez Referring Provider [phone] Dr. Clement Luna Attending Provider [phone] Luis M Lama Primary Care Provider [phone] Luis M Lama Referring Provider Dr. Gurdeep Martinez Attending Provider [phone] Dr. Gurdeep Martinez Referring Provider [phone] Dr. Clement Luna Attending Provider [phone] Luis M Lama Primary Care Unavailable Kelby, Luis M Attending Unavailable Kelby, Luis M Referring Unavailable Kelby, Luis M Primary Care Unavailable Luis M Lama Attending Unavailable Luis M Lama Referring Unavailable Gurdeep Martinez Consulting Unavailable Moo, Luis M Referring Unavailable TerLuis M harden Attending Unavailable Kelby, Luis M Primary Care Unavailable Tereletsirving, Luis M Admitting Unavailable Tereletsirving, Luis M Consulting Unavailable Kelby, Luis M Primary Care Unavailable Wali OCEAN LIFEGUARD SPECIALIST, Hung Gallegos Attending Unavailable Wali OCEAN LIFEGUARD SPECIALIST, Hung Gallegos Referring Unavailable Kelby, Luis M Primary Care Unavailable Gurdeep Martinez Consulting Unavailable Darek OCEAN LIFEGUARD SPECIALIST, Shawna Referring Unavailable Darek OCEAN LIFEGUARD SPECIALIST, Shawna Attending Unavailable Wali OCEAN LIFEGUARD SPECIALIST, Hung Gallegos Consulting Unavailable Luis M Lama Consulting Unavailable Angella DOW, Courtney M Consulting Unavail able Kelby, Luis M Primary Care Unavailable Gurdeep Martinez Consulting Unavailable Plaza OCEAN LIFEGUARD SPECIALIST, Shawna Referring Unavailable Plaza OCEAN LIFEGUARD SPECIALIST, Shawna Attending Unavailable Roof OCEAN LIFEGUARD SPECIALIST, Hung H Consulting Unavailable KelbyLuis M hood Consulting Unavailable Angella PA, Courtney M Consulting Unavail able Kelby, Luis M Primary Care Unavailable Gurdeep Martinez Consulting Unavailable Luis M Cortés Referring Unavailable Luis M Cortés Attending Unavailable Luis M Cortés Admitting Unavailable Kelby, Luis M Primary Care Unavailable Gurdeep Martinez Consulting Unavailable Plaza OCEAN LIFEGUARD SPECIALIST, Shawna Referring Unavailable Plaza OCEAN LIFEGUARD SPECIALIST, Shawna Attending Unavailable Roof OCEAN LIFEGUARD SPECIALIST, Hung H Consulting Unavailable KelbyLuis M hood Consulting Unavailable Kelby, Luis M Primary Care Unavailable KelbyLuis M hood Attending Unavailable Kelby, Luis M Primary Care Unavailable KelbyLuis M hood Attending Unavailable Kelby, Luis M Primary Care Unavailable KelbyLuis M hood Attending Unavailable Kelby, Luis M Primary Care Unavailable Luis M Lama Attending Unavailable Kelby, Luis M Primary Care Unavailable Luis M Lama Attending Unavailable Kelby, Luis M Primary Care Unavailable KelbyLuis M hood Attending Unavailable Kelby, Luis M Primary Care Unavailable Sampson Melendez Attending Unavailable Gurdeep Martinez Consulting Unavailable Plaza OCEAN LIFEGUARD SPECIALIST, Shawna Attending Unavailable Plaza OCEAN LIFEGUARD SPECIALIST, Shawna Referring Unavailable KelbyLuis M hood Primary Care Unavailable Roof OCEAN LIFEGUARD SPECIALIST, Hung H Consulting Unavailable Luis M Lama Consulting Unavailable Angella PA, Courtney Workman Consulting Unavail able KelbyLuis M hood Primary Care Unavailable Luis M Lama Attending Unavailable Gurdeep Martinez Consulting Unavailable Luis M Lama Referring Unavailable Gurdeep Martinez Consulting Unavailable Plaza OCEAN LIFEGUARD SPECIALIST, Shawna Attending Unavailable Plaza OCEAN LIFEGUARD SPECIALIST, Shawna Referring Unavailable Kelby, Luis M Primary Care Unavailable Roof OCEAN LIFEGUARD SPECIALIST, Hung H Consulting Unavailable KelbyLuis M hood Consulting Unavailable Perales PA, Courtney M Consulting Unavail able Kelby, Luis M Primary Care Unavailable KelbyLuis M hood Attending Unavailable Kelby, Luis M Primary Care Unavailable KelbyLuis M hood Attending Unavailable Gurdeep Martinez Attending Unavailable Kelby, Luis M Primary Care Unavailable Plaza OCEAN LIFEGUARD SPECIALIST, Shawna Referring Unavailable Gurdeep Martinez Consulting Unavailable Plaza OCEAN LIFEGUARD SPECIALIST, Shawna Attending Unavailable Roof OCEAN LIFEGUARD SPECIALIST, Hung H Consulting Unavailable KelbyLuis M hood Consulting Unavailable Perales PA, Courtney M Consulting Unavail able KelbyLuis M hood Primary Care Unavailable Luis M Lama Attending Unavailable Kelby, Luis M Primary Care Unavailable Luis M Lama Attending Unavailable Kelby, Luis M Primary Care Unavailable KelbyLuis M hood Referring Unavailable Courtney Chairez Attending Unavail able Kelby, Luis M Primary Care Unavailable Ashley Hyatt Attending Unavailable Kelby, Luis M Referring Unavailable Gurdeep Martinez Attending Unavailable Kelby, Luis M Primary Care Unavailable Kelby, Luis M Primary Care Unavailable Wali ROA, Hung Gallegos Attending Unavailable Kelby, Luis M Referring Unavailable Kelby, Luis M Primary Care Unavailable Gurdeep Martinez Attending Unavailable Kelby, Luis M Referring Unavailable Michelle, Gurdeep Attending Unavailable Kelby, Luis M Referring Unavailable [...] Care Unavailable Gurdeep Martinez Consulting Unavailable Darek OCEAN LIFEGUARD SPECIALIST, Shawna Referring Unavailable Darek OCEAN LIFEGUARD SPECIALIST, Shawna Attending Unavailable Wali OCEAN LIFEGUARD SPECIALIST, Hung Gallegos Consulting Unavailable Kelby, Luis M Consulting Unavailable Allergies Allergy Classification Reported Allergen(s) Allergy Type Date of Onset Reaction(s) Facility (20 sources) Enoxaparin Drug Allergy 10-22-19 Rash [facility] (20 sources) Sulfonamides (Antibiotic); Translations: [Sulfa (Sulfonamide Antibiotics)] Allergy to substance 10-22-19 [facility] (13 sources) hydroCHLOROthiazide Drug Allergy 08-30-19 23 urinary incontinence/l eaking [facility] (12 sources) amLODIPine Drug Allergy 10-23-19 23 Marked swelling in feet and ankles [facility] (1 source) Amiodarone Drug Allergy 02-21-20 [facility] (1 source) amLODIPine Drug Allergy 02-21-20 [facility] (1 source) dofetilide Drug Allergy 02-21-20 [facility] (1 source) Enoxaparin Drug Allergy 02-21-20 [facility] (1 source) hydroCHLOROthiazide Drug Allergy 02-21-20 [facility] Medications Current Medications Medication Drug Class(es) [...] by mouth twice daily at dinner Vitamins A,C,N-Rbxy-Evqdrk (Preservision Areds) 2,148 mcg-113 mg-45 mg-17.4mg tablet [...] day Simvastatin Discontinued 20 MG PO .qod July 16, 2021 1:58pm June 27, 2022 10:38am Start: 03-23-2019 End: 06-13-2019 take 20 mg by mouth once daily Simvastatin Discontinue d 20 MG PO DAILY March 23, 2019 12:02pm June 13, 2019 4:26pm Start: 09-12-2016 End: 03-23-2019 take 20 mg by mouth every other day Simvastatin Discontinued 20 MG PO EVERY OTHER DAY November 21, 2018 3:42pm March 23, 2019 [...] once daily [facility] 16, 2018 10:04am September 03, 2018 [...] 16, 2022 12:00am August 29, 2022 5:42pm Bbintamax-J5-Yra55-Alga l Oil (20 sources) Start: 09-18-2016 End: 04-19-2017 Lceyludol-Y8-Fcw13-Alg al Oil Discontinued 1 EACH PO AT BEDTIME September 17, 2016 11:00pm April 19, 2017 8:59am Start: 09-18-2016 End: 04-19-2017 Cfuqtbmgs-M3-Tyr86-Algal Oil Discontinued 1 EACH PO AT BEDTIME September 18, 2016 12:00am April 19, 2017 9:59am Hscdbpgrg-M2-Kzd87-Algal Oil (Metanx (Algal Oil)) 3 mg-35 mg-2 mg -90.314 mg capsule (20 sources) Start: 04-19-2017 End: 06-27-2022 take 1 capsule by mouth once daily Prpeqyjpz-B5-Ryc34-Algal Oil (Metanx (Algal Oil)) 3 mg-35 mg-2 mg -90.314 mg capsule Discontinued 1 CAP PO .daily April 19, 2017 12:00am June 27, 2022 9:38am Start: 04-19-2017 End: 06-27-2022 take 1 capsule by mouth once daily Vgnqapzid-G6-Yze18-Algal Oil (Metanx (Algal Oil)) 3 mg-35 mg-2 mg -90.314 mg capsule Discontinued 1 CAP PO .daily April 19, 2017 1:00am June 27, 2022 10:38am Start: 04-19-2017 take 1 capsule by mo ut once daily Uqzwbifwu-N3-Liw01-Algal Oil (Metanx (Algal Oil)) 3 mg-35 mg-2 mg -90.314 mg capsule Active 1 CAP PO .daily April 19, 2017 12:00am Start: 04-19-2017 take 1 capsule by mo uth once daily Ezvmvvdbn-C3-Kls50-Algal Oil (Metanx (Algal Oil)) 3 mg-35 mg-2 [...] October 21, 2021 12:00am polyethylene glycol 3350 23805 mg powder for oral solution (20 sources) [...] sources) Long-term current use of 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; Translations: [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) use of 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s] 04-17-2018 Episodic Other aftercare (5 sources) Drug therapy finding; Translations: [Other fdc (current) drug therapy] 05-31-2023 Episodic Other aftercare (5 sources) Other fdc (current) drug therapy; Translations: [Long-term (current) use [...] 01-16-2024 07-03-2023 Episodic Other aftercare (11 sources) care home (current) use of 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s; Translations: [Long-term (current) [...] Test Name Value Interpretation Reference Range Facility 12 Lead EKGon 10-19-2024 12 Lead EKG [facility] [address] [place] [address] 12 Lead EKG 10/19/24 1122 MR#: [id number] Acct: [id number] Name: ELIZABETH CHEATHAM Rep #: [id number] : 1935 89 From: Clement Luna MD Attending Dr: Status: DEP ER Ordering Dr: Sampson Melendez MD Date: 10/19/24 Location: ED Sex: F C Admitted: Test Reason : RHYTHM CHANGE Blood Pressure : */* mmHG Vent. Rate : 50 BPM Atrial Rate : 50 BPM P-R Int : 140 ms QRS Dur : 96 ms QT Int : 438 ms P-R-T Axes : 68 -49 52 degrees QTcB Int : 399 ms Sinus bradycardia Left anterior fascicular block Moderate voltage criteria for LVH, may be normal variant ( R in aVL , [place] product ) Septal infarct , age undetermined Abnormal ECG Confirmed by CLEMENT LUNA MD ([id number]), editor in chief newspaper JAIME MARTIN ([id number]) on 10/22/2024 8:20:46 AM Referred By: Confirmed By: CLEMENT LUNA MD 10/22/24 0820 Date Clement Luna MD CC: Dr. Sampson Melendez MD; Dr. Luis M Lama, DO Signed [facility] 12 Lead EKG [facility] [address] [place] [address] 12 Lead EKG 10/19/24 0822 MR#: [id number] Acct: [id number] Name: ELIZABETH CHEATHAM Rep #: [id number] : 1935 89 From: Clement Luna MD Attending Dr: Status: DEP ER Ordering Dr: Sampson Melendez MD Date: 10/19/24 Location: ED Sex: F C Admitted: Test Reason : CP Blood Pressure : */* mmHG Vent. Rate : 73 BPM Atrial Rate : * BPM P-R Int : * ms QRS Dur : 108 ms QT Int : 358 ms P-R-T Axes : * -47 69 degrees QTcB Int : 394 ms Atrial fibrillation Left anterior fascicular block Moderate voltage criteria for LVH, may be normal variant ( R in aVL , [place] product ) Septal infarct , age undetermined Abnormal ECG Confirmed by ALEK ROCHE, CLEMENT ([id number]), editor in chief newspaper JAIME MARTIN ([id number]) on 10/22/2024 8:22:15 AM Referred By: LES Confirmed By: CLEMENT LUNA MD 10/22/2422 Date Clement Luna MD CC: Dr. Sampson Melendez MD; Dr. Luis M Lama DO Signed Normal [facility] Basic Metabolic Profile (BMP )on 10-19-2024 BUN/CRE 17.2 RATIO Normal 10-20 [facility] Comment on above: Performed By: #### L 500.2500, L300.3900, L501.4021, L100.0100 ####[facility] [address] [place], [address] Calcium [Mass/Vol] 9.3 mg/dL Normal 7.6-11.0 [facility] Comment on above: Performed By: #### L 500.2500, L300.3900, L501.4021, L100.0100 ####[facility] [address] [place], [address] Chloride [Moles/Vol] 99 mmol/L Normal 98-[address] [facility] Comment on above: Performed By: #### L 500.2500, L300.3900, L501.4021, L100.0100 ####[facility] [address] [place], [address] CO2 [Moles/Vol] 24.8 mmol/L Normal 21.0-32.0 [facility] Comment on above: Performed By: #### L 500.2500, L300.3900, L501.4021, L100.0100 ####[facility] [address] [place], [address] Creatinine [Mass/Vol] 0.87 mg/dL Normal 0.70-1.20 [facility] Comment on above: Performed By: #### L 500.2500, L300.3900, L501.4021, L100.0100 ####[facility] [address] [place], [address] ECRCL 44.88 ml/min Low 50-250 [facility] Comment on above: Performed By: #### L 500.2500, L300.3900, L501.4021, L100.0100 ####[facility] [address] [place], [address] GAP 10 Normal 5-15 [facility] Comment on above: Performed By: #### L 500.2500, L300.3900, L501.4021, L100.0100 ####[facility] [address] [place], [address] GFR/1.73 sq M.predicted among non-blacks MDRD (S/P/Bld) [Vol rate/Area] 64 mL/min/{1.73_m2} Normal >60 [facility] Comment on above: Result Comment: mL/m in/1.73m2 CKD-EPI Creatinine Equation (2020) Performed By: #### L 500.2500, L300.3900, L501.4021, L100.0100 ####[facility] [address] [place], [address] Glucose [Mass/Vol] 113 mg/dL High 70-99 [facility] Comment on above: Performed By: #### L 500.2500, L300.3900, L501.4021, L100.0100 ####[facility] [address] [place], [address] Potassium [Moles/Vol] 4.1 mmol/L Normal 3.3-5.1 [facility] Comment on above: Performed By: #### L 500.2500, L300.3900, L501.4021, L100.0100 ####[facility] [address] [place], [address] Sodium [Moles/Vol] 134 mmol/L Normal 133-145 [facility] Comment on above: Performed By: #### L 500.2500, L300.3900, L501.4021, L100.0100 ####[facility] [address] [place], [address] Urea nitrogen [Mass/Vol] 15 mg/dL Normal 4-19 [facility] Comment on above: Performed By: #### L 500.2500, L300.3900, L501.4021, L100.0100 ####[facility] [address] [place], [address] CBC W/Diff, Automatedon 06-1 -2024 Absolute Lymph 1.50 X10 3/uL Normal 0.83-4.51 [facility] Comment on above: Performed By: #### L 500.2500, L300.3900, L501.4021, L100.0100 #### [facility] [address] [place], [address] Absolute Neut 2.4 X10 3/uL Normal 2.0-7.7 [facility] Comment on above: Performed By: #### L 500.2500, L300.3900, L501.4021, L100.0100 #### [facility] [address] [place], [address] Basophils/100 WBC (Bld) 0.5 % Normal 0-1 [facility] Comment on above: Performed By: #### L 500.2500, L300.3900, L501.4021, L100.0100 #### [facility] [address] [place], [address] Eosinophils/100 WBC (Bld) 0.5 % Normal 0-5 [facility] Comment on above: Performed By: #### L 500.2500, L300.3900, L501.4021, L100.0100 #### [facility] [address] [place], [address] Erythrocyte distribution width (RBC) [Ratio] 12.7 % Normal 11.6-14.6 [facility] Comment on above: Performed By: #### L 500.2500, L300.3900, L501.4021, L100.0100 #### [facility] [address] [place], [address] Hematocrit (Bld) [Volume fraction] 38.6 % Normal 37-47 [facility] Comment on above: Performed By: #### L 500.2500, L300.3900, L501.4021, L100.0100 #### [facility] [address] [place], [address] Hemoglobin (Bld) [Mass/Vol] 12.9 g/dL Normal 12.0-15.0 [facility] Comment on above: Performed By: #### L 500.2500, L300.3900, L501.4021, L100.0100 #### [facility] [address] [place], [address] IG% 0.200 Normal 0.0-0.9 [facility] Comment on above: Result Comment: IG% - Immature Granulocytes (promyelocytes, myelocytes and metamyelocytes) > 1% indicates that a LEFT SHIFT is Present. Performed By: #### L 500.2500, L300.3900, L501.4021, L100.0100 #### [facility] [address] [place], [address] Lymphocytes/100 WBC (Bld) 34.3 % Normal 19-41 [facility] Comment on above: Performed By: #### L 500.2500, L300.3900, L501.4021, L100.0100 #### [facility] [address] [place], [address] MCH (RBC) [Entitic mass] 31.9 pg Normal 27.0-32.0 [facility] Comment on above: Performed By: #### L 500.2500, L300.3900, L501.4021, L100.0100 #### [facility] [address] [place], [address] MCHC (RBC) [Mass/Vol] 33.4 g/dL Normal 32-36 [facility] Comment on above: Performed By: #### L 500.2500, L300.3900, L501.4021, L100.0100 #### [facility] [address] [place], [address] MCV (RBC) [Entitic vol] 95.3 fL Normal 81-99 [facility] Comment on above: Performed By: #### L 500.2500, L300.3900, L501.4021, L100.0100 #### [facility] [address] [place], [address] Monocytes/100 WBC (Bld) 9.2 % Normal 0-10 [facility] Comment on above: Performed By: #### L 500.2500, L300.3900, L501.4021, L100.0100 #### [facility] [address] [place], [address] Neutrophils/100 WBC (Bld) 55.3 % Normal 47-70 [facility] Comment on above: Performed By: #### L 500.2500, L300.3900, L501.4021, L100.0100 #### [facility] [address] [place], [address] Nucleated RBC (Bld) [#/Vol] 0 10*3/uL Normal 0-5 [facility] Comment on above: Performed By: #### L 500.2500, L300.3900, L501.4021, L100.0100 #### [facility] [address] [place], [address] Platelet mean volume (Bld) [Entitic vol] 10.0 fL Normal 6.2-12.0 [facility] Comment on above: Performed By: #### L 500.2500, L300.3900, L501.4021, L100.0100 #### [facility] [address] [place], [address] Platelets (Bld) [#/Vol] 222 10*3/uL Normal 150-450 [facility] Comment on above: Performed By: #### L 500.2500, L300.3900, L501.4021, L100.0100 #### [facility] [address] [place], [address] RBC (Bld) [#/Vol] 4.05 10*6/uL Low 4.2-5.4 [facility] Comment on above: Performed By: #### L 500.2500, L300.3900, L501.4021, L100.0100 #### [facility] [address] [place], [address] RDW SD 45.0 fl High 35.1-43.9 [facility] Comment on above: Performed By: #### L 500.2500, L300.3900, L501.4021, L100.0100 #### [facility] [address] [place], [address] WBC (Bld) [#/Vol] 4.4 10*3/uL Normal 4.4-11.0 [facility] Comment on above: Performed By: #### L 500.2500, L300.3900, L501.4021, L100.0100 #### [facility] [address] [place], [address] Chest 1 View (Portable)on Chest 1 View (Portable) [facility] Imaging Services [address] [place] [address] Chest 1 View (Portable) MR#: [id number] Acct: [id number] Name: ELIZABETH CHEATHAM Rep #: [id number] : 1935 F 89 From: Denilson Singh DO PCP: Dr. Luis M Lama DO Status: REG ER Study: Chest 1 View (Portable) Date of Exam: 10/19/24 Exam# [id number] Ordering Dr: Sampson Melendez MD PROCEDURE: CHEST 1 VIEW (PORTABLE) 10/19/2024 REASON FOR EXAM: CHEST PAIN TECHNIQUE: Frontal view of the chest. COMPARISON: 10/22/2022 FINDINGS: Hardware: None Heart: Normal size Lungs: Clear Bones: No aggressive features Other: RAD/Chest 1 View (Portable) IMPRESSION: Negative Reading [facility] CC: Dr. Sampson Melendez MD; Dr. Luis M Lama DO Optical Instrument Assembler: Signed Normal [facility] Emergency Department Summary on 10-19-2024 Emergency Department Summary [facility] Medical Records Department [address] [place] [address] Emergency Department Summary 10/19/24 MR#: [id number] Acct: [id number] Name: ELIZABETH CHEATHAM Rep #: [id number] : 1935 89 From: Sampson Melendez MD PCP: Dr. Luis M Lama, DO Status:REG ER Location: ED HPI History of Present Illness Chief Complaint: Chest Pain Narrative Narrative: 89-year-old female presents with her family with atrial fibrillation and chest discomfort, not feeling right. She has history of atrial fibrillation and is dealt with it for years. She had an ablation in 2018, but still went into atrial fibrillation. She had been started on Tikosyn remotely, and had been admitted, but she ended up cardioverting herself. She was told by her legal analyst, Dr. Martinez, about a year to a year and a half ago that if she went into atrial fibrillation again she should take Tikosyn 125 mg, and contact him. At around 6 AM, 2-1/2 hours ago, she awoke with not feeling right and discomfort in her chest. She denies any nausea or vomiting, no diaphoresis. Her Dryad mobile was not working so her daughter came over and stated that it said possible atrial fibrillation that was rate controlled. They called Dr. Arshad at [place] [facility] after she had taken Tikosyn and was directed to come to the emergency department. 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 LETICIA (obstructive sleep [...] drops 1 drp ophthalmic (eye) QHS eyes 10/18/24 History levothyroxine 75 mcg tablet 75 mcg PO DAILY hypothyroid 10/19/24 History timolol maleate 0.5 % eye drops 1 drp ophthalmic (eye) BID eye 10/2910/19/24 History health vit C 250 mg-vit E 90 mg-zinc 40 1 tab PO BID eye health 12/12/23 0 10/19/24 History mg-copper 1 dl-wicmou-hbwouo capsule (PreserVision AREDS-2) losartan 25 mg tablet 25 mg PO BID #180 tabs 01/30/24 Rx gabapentin 100 mg capsule 100 mg PO BID neuropathy 07/04/24 10/19/24 History lorazepam 0.5 mg tablet 0.5 mg PO BID sleep 07/04/2410/19 History chlorhexidine gluconate 0.12 % 15 ml PO BID 10/19/24 10/18/24 His tory mouthwash gabapentin 400 mg capsule 400 mg PO QHS 10/19/24 10/18/24 Hi story pantoprazole 20 mg tablet,delayed 20 mg PO DAILY 10/19/24 10/18/24 History release warfarin 4 mg tablet 4 mg PO DAILY anticoag 10/19/24 History Allergy/AdvReac Type Severity Reaction Status Date / Time enoxaparin (From Lovenox) Allergy Rash Verified 02/21/24 11:16 Sulfa (Sulfonamide Allergy Hives Verified 02/21/24 11:16 Antibiotics) Family History Mother Cancer Colon Diabetes Sister [...] you feel safe at home: Yes ROS ROS ED ROS Narrative Review of systems positive for chest discomfort and feeling correct. Reported atrial fibrillation that was rate controlled. No nausea or vomiting, no shortness of breath, no leg swelling, no other symptoms. No exacerbating or alleviating factors. EXAM Physical Exam Narrative Exam Narrative: Afebrile. Vital signs noted. Nontoxic-appearing. Cardiovascular examination reveals an irregularly irregular rhythm, but a normal rate. Lungs are clear to auscultation bilaterally. Abdomen soft, nontender, with positive bowel sounds. No guarding or rebound. No pedal (more content not included)... Normal [facility] L499.0042on 10-19-2024 Trop T High Sen 16 ng/L High <=14 [facility] Comment on above: Performed By: #### L 300.3900 #### [facility] [address] [place], [address] L499.0043on 10-19-2024 Trop T High Sen Normal <=14 [facility] Comment on above: Result Comment: AVINASH ENT DISCHARGED Performed By: #### L 499.0043 #### [facility] [address] [place], [address] L501.4021on 10-19-2024 Trop T High Sen 16 ng/L High <=14 [facility] Comment on above: Performed By: #### L 500.2500, L300.3900, L501.4021, L100.0100 ####[facility] [address] [place], [address] Prothrombin Time w/INRon INR Coag (PPP) [Relative time] 2.2 {INR} Normal [facility] Comment on above: Performed By: #### L 500.2500, L300.3900, L501.4021, L100.0100 ####[facility] [address] [place], [address] PT Coag (PPP) [Time] 24.5 s High 11.7-14.[address] [facility] Comment on above: Performed By: #### L 500.2500, L300.3900, L501.4021, L100.0100 ####[facility] [address] [place], [address] Brain/Head W/WO Contraston 0 09-06-2024 Brain/Head W/WO Contrast [facility] Imaging Services [address] [place], [place] [address] Brain/Head W/WO Contrast MR#: [id number] Acct: [id number] Name: ELIZABETH CHEATHAM Rep #: [id number] : 1935 F 89 From: Jonah villavicencio MD PCP: Dr. Luis M Lama DO Status: REG CLI Study: Brain/Head W/WO Contrast Date of Exam: Exam# [id number] Ordering Dr: Luis M Lama DO PROCEDURE: [...] Reading Location: [facility] CC: Dr. 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 Normal [facility] 12 Lead EKG performed by [facility] on 07-04-2024 12 Lead EKG performed by [facility] [address] [place] [address] 12 Lead EKG performed by [facility] 07/04/24812 MR#: [id number] Acct: [id number] Name: ELIZAEBTH CHEATHAM Rep #: [id number] : 1935 89 From: Courtney Vergara Attending Dr: VICTOR M Garcia Status: DEP AMB Ordering Dr: Courtney Perales Date: 06/09 11/29 Location: [facility] Sex: F C Admitted: [facility]/12 Lead EKG performed by [facility] ECG Report Interpretation A trial flutter-fibrillation -Nonspecific QRS widening and anterior fascicular block. -Old anteroseptal infarct. ABNORMAL Electronically signed on 07/08/2024 at 14:02 by Clement Luna Software Version [id number] 07/08/24 1406 Date Courtney DOW CC: Dr. Luis M Lama DO Date Dictated: 07/04/24812 Date Transcribed: 07/04/24812 Optical Instrument Assembler: ADAMARIS Signed Normal [facility] Cardiology Visit Reporton Cardiology Visit Report [facility] [address] [place] [address] OFFICE VISIT Date of Service: 07/04/24 MR#: [id number] Acct: [id number] Name: ELIZABETH CHEATHAM Rep #: [id number] : 1935 Provider: VICTOR M Gifford Age/Sex: 89/F Location: [facility] Status: Signed HPI HPI History of Present Illness Details: Ms. Cheatham, a 89 year old lady comes in today with her . She carries a history of paroxysmal atrial fibrillation status post radiofrequency ablation in 2018 at the [facility]. The patient has been hospitalized at [facility] will be loaded her with Tikosyn. 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: No Is patient in pain?: No [...] health 12/12/23 0 07/04/24 History mg-copper 1 cc-lyhorp-xprodv capsule (PreserVision AREDS-2) losartan 25 mg tablet 25 mg PO BID #180 tabs 01/30/24 Rx gabapentin 100 mg capsule 100 mg PO BID neuropathy 07/04/24 07/04/24 History lorazepam 0.5 mg tablet 0.5 mg PO TID sleep 07/04/2407/04 History Ejection fraction %: 60 Have you fallen in the past year?: No PFSH Medical History (Updated 07/04/24 @ 09:40 by Courtney DOW, PA) Bradycardia H/O abdominal pain Difficulty balancing Pure hypercholesterolemia Essential hypertension Family history of colon cancer in mother care home current use of 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 LETICIA (obstructive sleep [...] smoker secon (more content not included)... Normal [facility] L3410.9999on 05-27-2024 [facility] Misc. COMMENT Normal . [facility] Comment on above: Order Comment: [id number] 3PROINSULIN SER/FZ Result Comment: Test Ordered: [id number] Proinsulin Proinsulin 6.0 pmol/L Reference Range: 0.0-10.0 Performed at: - [address] [id number] Precision Assembly Inspector: Brian Hinson MD, Phone: [phone] Performed at: [address] [id number] Precision Assembly Inspector: Quinn Bennett PhD, Phone: [phone] Performed By: #### L 8350.9999 ####[facility] [address] [place], [address] L3410.9999on 05-24-2024 [facility] Misc. COMMENT Normal . [facility] Comment on above: Order Comment: SER/F [id number] HYDROXYBUTYRATE Result Comment: Test Ordered: [id number] Beta-Hydroxybutyrate Beta-Hydroxybutyrate 1.2 mg/dL ES Reference Range: . Reference Range: All Ages (fasting): 0.2 - 2.8 Performed at: [facility] [address] [place] [id number] Precision Assembly Inspector: Oh Aguillon MD, Phone: [phone] Performed at: [address] [id number] Precision Assembly Inspector: Quinn Bennett PhD, Phone: [phone] Performed By: #### L 506.0400, L501.9520 #### [facility] [address] [place], [place], [address] Urine Cultureon 05-23-2024 [facility] ADD ON CUUR #1 Below infection level. Presumptive E. coli Monroe Count 1000-10,000 Mixed Gram Positive Organisms Mixed Gram Positive Organisms MIXC Mixed contaminants. Submit a new specimen if indicated. Normal [facility] Comment on above: Performed By: #### L 506.0400, L501.9520 #### [facility] [address] [place], [place], [address] C-Peptideon 05-22-2024 C PEPTIDE 2.6 ng/mL Normal 1.1-4.4 [facility] Comment on above: Result Comment: C-Pe ptide reference interval is for fasting patients. Performed By: #### L 506.0400, L501.9520 #### [facility] [address] [place], [place], [address] Insulin Levelon 05-22-2024 INSULIN,FASTING 4.8 uIU/mL Normal 2.6-24.9 [facility] Comment on above: Result Comment: Perf ormed at: [facility] [id number] Precision Assembly Inspector: Quinn Bennett PhD, Phone: [phone] Performed By: #### L 506.0400, L5.9520 #### [facility] [address] [place], [place], [address] Prealbumin 50013od Prealbumin [Mass/Vol] 24 mg/dL Normal 9-32 [facility] Comment on above: Result Comment: Perf ormed at: [facility] [id number] Precision Assembly Inspector: Quinn Bennett PhD, Phone: [phone] Performed By: #### L 506.0400, L501.9520 #### [facility] [address] [facility] [address] CORTISOL SERUMon 05-20-2024 CORTISOL 13.20 ug/dL Normal 3.44-22.45 [facility] Comment on above: Result Comment: Adul t (AM) 5.27 - 22.45 ug/dL Adult (PM) 3.44 - 16.76 ug/dL Performed By: #### L 506.0400, L501.9520 #### [facility] [address] [place], [address] Hemoglobin A1con 05-20-2024 HbA1c (Bld) [Mass fraction] 5.5 % Normal 3.8-5.6 [facility] Comment on above: Result Comment: Norm al < 5.7 % Prediabetic 5.7 - 6.4 % Diabetic >or= 6.5 % Please note range changes. Performed By: #### L 506.0400, L501.9520 #### [facility] [address] [place], [address] Prothrombin Time w/INRon INR Coag (PPP) [Relative time] 2.6 {INR} Normal [facility] Comment on above: Performed By: #### L 506.0400, L501.9520 #### [facility] [address] [place], [address] PT Coag (PPP) [Time] 28.1 s High 11.7-14.[address] [facility] Comment on above: Performed By: #### L 506.0400, L501.9520 #### [facility] [address] [place], [address] Thyroid Stim Hormone (TSH)on 05-20-2024 TSH 3.990 uIU/mL High 0.358-3.740 [facility] Comment on above: Order Comment: COPY OF PT/INR TO DR. GURDEEP MARTINEZ Performed By: #### L 506.0400, L501.9520 #### [facility] [address] [place], [address] Urinalysis, Routine (Dipstic k)on 05-20-2024 BILIRUBIN URINE Negative Normal Negative [facility] Comment on above: Order Comment: CLEAN CATCH Performed By: #### L 506.0400, L501.9520 #### [facility] [address] [place], [address] Clarity (U) Clear Normal Clear [facility] Comment on above: Order Comment: CLEAN CATCH Performed By: #### L 506.0400, L501.9520 #### [facility] [address] [place], [address] Color (U) Yellow Normal Yellow [facility] Comment on above: Order Comment: CLEAN CATCH Performed By: #### L 506.0400, L501.9520 #### [facility] [address] [place], [address] GLUCOSE, UR Normal Normal Normal [facility] Comment on above: Order Comment: CLEAN CATCH Performed By: #### L 506.0400, L501.9520 #### [facility] [address] [place], [address] KETONE UR Negative Normal Negative [facility] Comment on above: Order Comment: CLEAN CATCH Performed By: #### L 506.0400, L501.9520 #### [facility] [address] [place], [address] LEUK ESTERASE 500 /ul Abnormal Negative [facility] Comment on above: Order Comment: CLEAN CATCH Performed By: #### L 506.0400, L501.9520 #### [facility] [address] [place], [address] Nitrite Ql (U) Negative Normal Negative [facility] Comment on above: Order Comment: CLEAN CATCH Performed By: #### L 506.0400, L501.9520 #### [facility] [address] [place], [address] OCCULT BLOOD-UR 10 /ul Abnormal Negative [facility] Comment on above: Order Comment: CLEAN CATCH Performed By: #### L 506.0400, L501.9520 #### [facility] [address] [place], [address] pH UR 7.0 Normal 5.0 - 8.0 [facility] Comment on above: Order Comment: CLEAN CATCH Performed By: #### L 506.0400, L501.9520 #### [facility] [address] [place], [address] PROT DIPSTX Negative Normal Negative [facility] Comment on above: Order Comment: CLEAN CATCH Performed By: #### L 506.0400, L501.9520 #### [facility] [address] [place], [address] SP.GR. DIPSTX 1.010 Normal 1.002-1.030 [facility] Comment on above: Order Comment: CLEAN CATCH Performed By: #### L 506.0400, L501.9520 #### [facility] [address] [place], [address] UROBILI Normal Normal Normal [facility] Comment on above: Order Comment: CLEAN CATCH Performed By: #### L 506.0400, L501.9520 #### [facility] [address] [place], [address] Prothrombin Time w/INRon INR Coag (PPP) [Relative time] 2.9 {INR} Normal [facility] Comment on above: Performed By: #### L 500.2500 #### [facility] [address] [place], [address] PT Coag (PPP) [Time] 30.0 s High 11.7-14.[address] [facility] Comment on above: Performed By: #### L 500.2500 #### [facility] [address] [place], [address] CBC W/Diff, Automatedon 11-2 0-2024 Absolute Lymph 1.53 X10 3/uL Normal 0.83-4.51 [facility] Comment on above: Performed By: #### L 506.0400, L501.9520 #### [facility] [address] [place], [address] Absolute Neut 2.3 X10 3/uL Normal 2.0-7.7 [facility] Comment on above: Performed By: #### L 506.0400, L501.9520 #### [facility] [address] [place], [address] Basophils/100 WBC (Bld) 0.5 % Normal 0-1 [facility] Comment on above: Performed By: #### L 506.0400, L501.9520 #### [facility] [address] [place], [address] Eosinophils/100 WBC (Bld) 0.7 % Normal 0-5 [facility] Comment on above: Performed By: #### L 506.0400, L501.9520 #### [facility] [address] [place], [address] Erythrocyte distribution width (RBC) [Ratio] 13.0 % Normal 11.6-14.6 [facility] Comment on above: Performed By: #### L 506.0400, L501.9520 #### [facility] [address] [place], [address] Hematocrit (Bld) [Volume fraction] 36.7 % Low 37-47 [facility] Comment on above: Performed By: #### L 506.0400, L501.9520 #### [facility] [address] [place], [address] Hemoglobin (Bld) [Mass/Vol] 12.0 g/dL Normal 12.0-15.0 [facility] Comment on above: Performed By: #### L 506.0400, L5.20 #### [facility] [address] [place], [address] IG% 0.200 Normal 0.0-0.9 [facility] Comment on above: Result Comment: IG% - Immature Granulocytes (promyelocytes, myelocytes and metamyelocytes) > 1% indicates that a LEFT SHIFT is Present. Performed By: #### L 506.0400, L5.9520 #### [facility] [address] [place], [address] Lymphocytes/100 WBC (Bld) 36.3 % Normal 19-41 [facility] Comment on above: Performed By: #### L 506.0400, L5.20 #### [facility] [address] [place], [address] MCH (RBC) [Entitic mass] 31.4 pg Normal 27.0-32.0 [facility] Comment on above: Performed By: #### L 506.0400, L5.20 #### [facility] [address] [place], [address] MCHC (RBC) [Mass/Vol] 32.7 g/dL Normal 32-36 [facility] Comment on above: Performed By: #### L 506.0400, L5.20 #### [facility] [address] [place], [address] MCV (RBC) [Entitic vol] 96.1 fL Normal 81-99 [facility] Comment on above: Performed By: #### L 506.0400, L5.20 #### [facility] [address] [place], [address] Monocytes/100 WBC (Bld) 8.1 % Normal 0-10 [facility] Comment on above: Performed By: #### L 506.0400, L5.20 #### [facility] [address] [place], [address] Neutrophils/100 WBC (Bld) 54.2 % Normal 47-70 [facility] Comment on above: Performed By: #### L 506.0400, L501.9520 #### [facility] [address] [place], [address] Nucleated RBC (Bld) [#/Vol] 0 10*3/uL Normal 0-5 [facility] Comment on above: Performed By: #### L 506.0400, L5.20 #### [facility] [address] [place], [address] Platelet mean volume (Bld) [Entitic vol] 10.5 fL Normal 6.2-12.0 [facility] Comment on above: Performed By: #### L 506.0400, L5.9519 #### [facility] [address] [place], [address] Platelets (Bld) [#/Vol] 202 10*3/uL Normal 150-450 [facility] Comment on above: Performed By: #### L 506.0400, L5.20 #### [facility] [address] [place], [address] RBC (Bld) [#/Vol] 3.82 10*6/uL Low 4.2-5.4 [facility] Comment on above: Performed By: #### L 506.0400, L501.20 #### [facility] [address] [place], [address] RDW SD 45.7 fl High 35.1-43.9 [facility] Comment on above: Performed By: #### L 506.0400, L501.20 #### [facility] [address] [place], [address] WBC (Bld) [#/Vol] 4.2 10*3/uL Low 4.4-11.0 [facility] Comment on above: Performed By: #### L 506.0400, L501.9520 #### [facility] [address] [place], [address] Comprehensive Metabolic Prof ilon 03-27-2024 Albumin [Mass/Vol] 3.7 g/dL Normal 3.2-5.0 [facility] Comment on above: Order Comment: DR.KE DEJON PLAZA ORDERED PTINRDR.BAO ORDERED LIPID,TSH,T4F,CMP.CBCD Performed By: #### L 506.0400, L501.9520 #### [facility] [address] [place], [address] Albumin/Globulin [Mass ratio] 1.3 {ratio} Normal 0.9-2.4 [facility] Comment on above: Order Comment: DR.KE DEJON PLAZA ORDERED PTINRDR.BAO ORDERED LIPID,TSH,T4F,CMP.CBCD Performed By: #### L 506.0400, L501.9520 #### [facility] [address] [place], [address] ALK P 71 U/L Normal 45-117 [facility] Comment on above: Order Comment: DR.KE DEJON PLAZA ORDERED PTINRDR.BAO ORDERED LIPID,TSH,T4F,CMP.CBCD Performed By: #### L 506.0400, L501.9520 #### [facility] [address] [place], [address] ALT [Catalytic activity/Vol] 20 U/L Normal 13-56 [facility] Comment on above: Order Comment: DR.KE DEJON PLAZA ORDERED PTINRDR.BAO ORDERED LIPID,TSH,T4F,CMP.CBCD Performed By: #### L 506.0400, L501.9520 #### [facility] [address] [place], [address] AST [Catalytic activity/Vol] 19 U/L Normal 15-37 [facility] Comment on above: Order Comment: DR.KE DEJON PLAZA ORDERED PTINRDR.BAO ORDERED LIPID,TSH,T4F,CMP.CBCD Performed By: #### L 506.0400, L501.9520 #### [facility] [address] [place], [address] Bilirubin [Mass/Vol] 0.40 mg/dL Normal 0.20-1.[address] [facility] Comment on above: Order Comment: DR.KE DEJON PLAZA ORDERED PTINRDR.BAO ORDERED LIPID,TSH,T4F,CMP.CBCD Result Comment: For patients on eltrombopag therapy, use of Dimension [place] TBIL is not recommended. Performed By: #### L 506.0400, L501.9520 #### [facility] [address] [place], [address] BUN/CRE 19.2 RATIO Normal 10-20 [facility] Comment on above: Order Comment: DR.KE DEJON PLAZA ORDERED PTINRDR.BAO ORDERED LIPID,TSH,T4F,CMP.CBCD Performed By: #### L 506.0400, L501.9520 #### [facility] [address] [place], [address] CA,Total 9.3 mg/dL Normal 8.5-10.1 [facility] Comment on above: Order Comment: DR.KE DEJON PLAZA ORDERED PTINRDR.BAO ORDERED LIPID,TSH,T4F,CMP.CBCD Performed By: #### L 506.0400, L501.9520 #### [facility] [address] [place], [address] Chloride [Moles/Vol] 106 mmol/L Normal 98-[address] [facility] Comment on above: Order Comment: DR.KE DEJON PLAZA ORDERED PTINRDR.BAO ORDERED LIPID,TSH,T4F,CMP.CBCD Performed By: #### L 506.0400, L501.9520 #### [facility] [address] [place], [address] CO2 [Moles/Vol] 31.0 mmol/L Normal 21.0-32.0 [facility] Comment on above: Order Comment: DR.KE DEJON PLAZA ORDERED PTINRDR.BAO ORDERED LIPID,TSH,T4F,CMP.CBCD Performed By: #### L 506.0400, L501.9520 #### [facility] [address] [place], [address] Creatinine [Mass/Vol] 0.83 mg/dL Normal 0.55-1.02 [facility] Comment on above: Order Comment: DR.KE DEJON PLAZA ORDERED PTINRDR.BAO ORDERED LIPID,TSH,T4F,CMP.CBCD Result Comment: The validity of the calculated GFR GFRAA in patients over 70 years has not been determined. Clinical correlation is essential. Performed By: #### L 506.0400, L501.9520 #### [facility] [address] [place], [address] EST GFR - AA 83 mL/min Normal >60 [facility] Comment on above: Order Comment: DR.KE DEJON PLAZA ORDERED PTINRDR.BAO ORDERED LIPID,TSH,T4F,CMP.CBCD Result Comment: Afri can [place] Islander GFR Calc Performed By: #### L 506.0400, L501.9520 #### [facility] [address] [place], [address] GAP 1 Low 5-15 [facility] Comment on above: Order Comment: DR.KE DEJON PLAZA ORDERED PTINRDR.BAO ORDERED LIPID,TSH,T4F,CMP.CBCD Performed By: #### L 506.0400, L501.9520 #### [facility] [address] [place], [address] GFR/1.73 sq M.predicted among non-blacks MDRD (S/P/Bld) [Vol rate/Area] 69 mL/min/{1.73_m2} Normal >60 [facility] Comment on above: Order Comment: DR.KE DEJON PLAZA ORDERED PTINRDR.BAO ORDERED LIPID,TSH,T4F,CMP.CBCD Result Comment: Non- GFR Calc Performed By: #### L 506.0400, L501.9520 #### [facility] [address] [place], [address] Globulin (S) [Mass/Vol] 2.9 g/dL Normal 2.2-4.2 [facility] Comment on above: Order Comment: DR.KE DEJON PLAZA ORDERED PTINRDR.BAO ORDERED LIPID,TSH,T4F,CMP.CBCD Performed By: #### L 506.0400, L501.9520 #### [facility] [address] [place], [address] Glucose [Mass/Vol] 86 mg/dL Normal 74-106 [facility] Comment on above: Order Comment: DR.KE DEJON PLAZA ORDERED PTINRDR.BAO ORDERED LIPID,TSH,T4F,CMP.CBCD Performed By: #### L 506.0400, L501.9520 #### [facility] [address] [place], [address] Potassium [Moles/Vol] 4.5 mmol/L Normal 3.5-5.1 [facility] Comment on above: Order Comment: DR.KE DEJON PLAZA ORDERED PTINRDR.BAO ORDERED LIPID,TSH,T4F,CMP.CBCD Performed By: #### L 506.0400, L501.9520 #### [facility] [address] [place], [address] Sodium [Moles/Vol] 138 mmol/L Normal 136-145 [facility] Comment on above: Order Comment: DR.KE DEJON PLAZA ORDERED PTINRDR.STAUTZMAN ORDERED LIPID,TSH,T4F,CMP.CBCD Performed By: #### L 506.0400, L501.9520 #### [facility] [address] [place], [address] T PROT 6.6 g/dL Normal 6.4-8.2 [facility] Comment on above: Order Comment: DR.KE DEJON PLAZA ORDERED PTINRDR.BAO ORDERED LIPID,TSH,T4F,CMP.CBCD Performed By: #### L 506.0400, L501.9520 #### [facility] [address] [place], [address] Urea nitrogen [Mass/Vol] 16 mg/dL Normal 7-18 [facility] Comment on above: Order Comment: DR.KE DEJON PLAZA ORDERED PTINRDR.BAO ORDERED LIPID,TSH,T4F,CMP.CBCD Performed By: #### L 506.0400, L501.9520 #### [facility] [address] [place], [address] Lipid Profileon 03-27-2024 Cholesterol [Mass/Vol] 199 mg/dL Normal 200 [facility] Comment on above: Order Comment: DR.KE DEJON PLAZA ORDERED PTINRDR.BAO ORDERED LIPID,TSH,T4F,CMP.CBCD Result Comment: <200 mg/dL Desirable 200-240 mg/dL Borderline >240 mg/dL High Risk Performed By: #### L 506.0400, L501.9520 #### [facility] [address] [place], [address] Cholesterol in HDL [Mass/Vol] 67 mg/dL Normal [facility] Comment on above: Order Comment: DR.KE DEJON PLAZA ORDERED PTINRDR.BAO ORDERED LIPID,TSH,T4F,CMP.CBCD Result Comment: The drugs N-Acetylcysteine and Metamizole may falsely depress this assay. Reference Range HDL <40 mg/dL Low HDL Cholesterol HDL >or= 60 mg/dL High HDL Cholesterol Performed By: #### L 506.0400, L520 #### [facility] [address] [place], [address] Cholesterol in LDL [Mass/Vol] 114 mg/dL Normal 0-130 [facility] Comment on above: Order Comment: DR.KE DEJON PLAZA ORDERED PTINRDR.BAO ORDERED LIPID,TSH,T4F,CMP.CBCD Performed By: #### L 506.0400, L5.9520 #### [facility] [address] [place], [address] Cholesterol in VLDL [Mass/Vol] 18 mg/dL Normal 5-40 [facility] Comment on above: Order Comment: DR.KE DEJON PLAZA ORDERED PTINRDR.BAO ORDERED LIPID,TSH,T4F,CMP.CBCD Performed By: #### L 506.0400, L5.20 #### [facility] [address] [place], [address] Triglyceride [Mass/Vol] 91 mg/dL Normal [facility] Comment on above: Order Comment: DR.KE DEJON PLAZA ORDERED PTINRDR.BAO ORDERED LIPID,TSH,T4F,CMP.CBCD Result Comment: The drugs N-Acetylcysteine and Metamizole may falsely depress this assay. Serum Triglycerides Reference Interval Normal <150 mg/dL Borderline high 150 - 199 mg/dL High 200 - 499 mg/dL Very High > or = 500 mg/dL Performed By: #### L 506.0400, L5.20 #### [facility] [address] [place], [address] Prothrombin Time w/INRon INR Coag (PPP) [Relative time] 2.3 {INR} Normal [facility] Comment on above: Performed By: #### L 506.0400, L501.9520 #### [facility] [address] [place], [address] PT Coag (PPP) [Time] 25.3 s High 11.7-14.[address] [facility] Comment on above: Performed By: #### L 506.0400, L501.9520 #### [facility] [address] [place], [address] T4 Free Directon 03-27-2024 T4 FREE DIRECT 1.20 ng/dL Normal 0.76-1.46 [facility] Comment on above: Order Comment: DR.KE DEJON PLAZA ORDERED PTINRDR.BAO ORDERED LIPID,TSH,T4F,CMP.CBCD Performed By: #### L 506.0400, L501.9520 #### [facility] [address] [place], [address] Thyroid Stim Hormone (TSH)on 03-27-2024 TSH 3.100 uIU/mL Normal 0.358-3.740 [facility] Comment on above: Order Comment: DR.KE DEJON PLAZA ORDERED PTINRDR.BAO ORDERED LIPID,TSH,T4F,CMP.CBCD Performed By: #### L 506.0400, L501.9520 #### [facility] [address] [place], [address] Prothrombin Time w/INRon INR Coag (PPP) [Relative time] 2.9 {INR} Normal [facility] Comment on above: Performed By: #### L 300.3900 ####[facility] [address] [place], [address] PT Coag (PPP) [Time] 29.9 s High 11.7-14.[address] [facility] Comment on above: Performed By: #### L 300.3900 ####[facility] [address] [place], [address] 12 Lead EKG performed by [facility] on 02-21-2024 12 Lead EKG performed by [facility] [address] [place] [address] 12 Lead EKG performed by [facility] [place] [place] 02/21/24805 MR#: [id number] Acct: [id number] Name: ELIZABETH CHEATHAM Rep #: [id number] : 1935 88 From: Gurdeep Martinez MD Attending Dr: Dr. Gurdeep Martinez MD Status: DE P AMB Ordering Dr: Gurdeep Martinez MD Date: 02/21/24 Location: [facility] [place] Sex: F C Admitted: BMS/12 Lead EKG performed by [facility] ECG Report Interpretation S inus Bradycardia -Left axis -anterior fascicular block. Voltage criteria for LVH (R(aVL) exceeds 1.01 mV) -Voltage criteria w/o ST/T abnormality may be normal. BOAT CREW DECK HAND old septal infarct. ABNORMAL Electronically signed on 02/21/2024 at 12:[address] Gurdeep Martinez [employer] Software Version 8610 02/21/24 1227 Date Gurdeep Martinez MD CC: Dr. Luis M Lama DO Date Dictated: 02/21/24805 Date Transcribed: 02/21/24805 Optical Instrument Assembler: Signed Normal [facility] Cardiology Visit Reporton Cardiology Visit Report [facility] [facility]. [address] [place], [place] [address] OFFICE VISIT Date of Service: 02/21/24 MR#: [id number] Acct: [id number] Name: ELIZABETH CHEATHAM Rep #: [id number] : 1935 Provider: Dr. Gurdeep patel MD Age/Sex: 88/F Location: [facility] Status: Signed [facility] History of Present Illness Details: Ms. Cheatham, a 88 year old lady comes in today with her . She carries a history of paroxysmal atrial fibrillation status post radiofrequency ablation in 2018 at the [facility]. The patient has been hospitalized at [facility] will be loaded her with Tikosyn. 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 Normal [facility] Prothrombin Time w/INRon INR Coag (PPP) [Relative time] 2.0 {INR} Normal [facility] Comment on above: Performed By: #### L 300.1820 #### [facility] [address] [place], [address] PT Coag (PPP) [Time] 22.8 s High 11.7-14.[address] [facility] Comment on above: Performed By: #### L 300.3900 #### [facility] [address] [place], [address] 12 Lead EKG performed by [facility] on 01-10-2024 12 Lead EKG performed by [facility] [address] [place] [address] 12 Lead EKG performed by [facility] 01/10/24 0849 MR#: [id number] Acct: [id number] Name: ELIZABETH CHEATHAM Rep #: [id number] : 1935 88 From: Gurdeep Martinez MD Attending Dr: Dr. Gurdeep Martinez MD Status: DE P AMB Ordering Dr: Gurdeep Martinez MD Date: 01/10/24 [place] [facility] [place] F C Admitted: BMS/12 Lead EKG performed by [facility] ECG Report Interpretation M arked atrial Bradycardia P:QRS - 1:1, Abnormal P axis, H Rate 46Voltage criteria for LVH (R(I)+S(III) exceeds 2.50 mV). - Nonspecific T-abnormality. ABNORMAL Electronically signed on 01/15/2024 at 09:[address] Gurdeep Martinez [employer] Software Version 8610 01/15/24921 Date Gurdeep Martinez MD CC: Dr. 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 [address] OFFICE VISIT Date of Service: 01/10/24 MR#: [id number] Acct: [id number] Patient: ELIZABETH CHEATHAM Rep #: [id number] : 1935 Provider: Dr. Gurdeep patel MD Age/Sex: 88/F Location: [facility] [place] Status: Signed Intake Vital Signs 01/03/24 10:58 [...] Orders: Orders 12 Lead EKG performed by [facility] 01/10/24 I48.0 - Paroxysmal atrial fibrillation Clinical Quality Measures Falls Risk Screening/Assistive Devices Have you fallen in the past year?: No 01/11/24 1125 Date Gurdeep Mendoza Signature: Date (if applicable) CC: Normal [facility] Prothrombin Time w/INRon INR Coag (PPP) [Relative time] 2.2 {INR} Normal [facility] Comment on above: Performed By: #### L 300.3900 #### [facility] [place] [address], [address] PT Coag (PPP) [Time] 24.2 s High 11.7-14.[address] [facility] Comment on above: Performed By: #### L 300.3900 #### [facility] [address] [place], [address] T4 Free Directon 01-10-2024 T4 FREE DIRECT 1.50 ng/dL High 0.76-1.46 [facility] Comment on above: Performed By: #### L 506.0400, L501.9520 #### [facility] [address] [place], [address] Thyroid Stim Hormone (TSH)on 01-10-2024 TSH 0.899 uIU/mL Normal 0.358-3.740 [facility] Comment on above: Performed By: #### L 506.0400, L585.8520 #### [facility] [address] [place], [address] 12 Lead EKGon 01-05-2024 12 Lead EKG [facility] Cardiovascular Services [address] [place] [address] 12 Lead EKG 01/05/24 1203 MR#: [id number] Acct: [id number] Name: ELZIABETH CHEATHAM Rep #: [id number] : 1935 88 From: Scot Graham MD Attending Dr: Dr. Luis M Cortés, DO Status: D IS IN Ordering Dr: Gurdeep Martinez MD Date: 01/05/24 Location: [facility] Sex: F C Admitted: 01/03/24 Test Reason [...] R in aVL , Jim product ) Anteroseptal infarct , age undetermined Abnormal ECG When compared with ECG of 05-JAN-2024 01:04, MANUAL COMPARISON REQUIRED, DATA IS UNCONFIRMED Confirmed by SCOT GRAHAM ([id number]), editor in chief newspaper JAIME MARTIN ([id number]) on 01/06/2024 6:06:57 AM Referred By: Luis M Cortés Confirmed By:SCOT GRAHAM 01/06/24 0607 Date Scot Graham MD CC: Dr. Luis M Lama DO; Dr. Luis M Cortés DO; Dr. Gurdeep Martinez MD Signed Normal [facility] 12 Lead EKG [facility] Cardiovascular Services [address] [place] [address] 12 Lead EKG 01/05/24 0104 MR#: [id number] Acct: [id number] Name: ELIZABETH CHEATHAM Rep #: [id number] : 1935 88 From: Scot Graham MD Attending Dr: Dr. Luis M Cortés DO Status: D IS IN Ordering Dr: Gurdeep Martinez MD Date: 01/05/24 Location: [facility] Sex: F C Admitted: 01/03/24 Test Reason [...] IS UNCONFIRMED Confirmed by SCOT GRAHAM ([id number]), editor in chief newspaper JAIME MARTIN ([id number]) on 01/06/2024 6:06:50 AM Referred By: Luis M Cortés Confirmed By:SCOT GRAHAM 01/06/24 0606 Date Scot Graham MD CC: Dr. Luis M Lama, DO; Dr. Luis M Cortés DO; Dr. Gurdeep Martinez MD Signed Normal [facility] Discharge Instructionon 12-08 Discharge Instruction [facility] Medical Records Department [address] [place] [address] Instructions for Home/Discharge Instructions 01/05/24 1233 MR#: [id number] Acct: [id number] Name: ELIZABETH CHEATHAM Rep #: [id number] : 1935 88 From: Luis M Cortés [...] Lama DO; Dr. Gurdeep Martinez MD Signed Normal [facility] 12 Lead EKGon 01-04-2024 12 Lead EKG [facility] Cardiovascular Services [address] [place] [address] 12 Lead EKG 01/04/24 0051 MR#: [id number] Acct: [id number] Name: ELIZABETH CHEATHAM Rep #: [id number] : 1935 88 From: Gurdeep Martinez MD Attending Dr: Dr. Luis M Cortés DO Status: A DM IN Ordering Dr: Gurdeep Martinez MD Date: 01/04/24 Location: [facility] Sex: F C Admitted: 01/03/24 Test Reason [...] DATA IS UNCONFIRMED Confirmed by Gurdeep Martinez ([id number]), editor in chief newspaper TARA BAE ([id number]) on 01/05/2024 6:35:21 AM Referred By: Luis M Cortés Confirmed By:Gurdeep Martinez 01/05/24 0635 Date Gurdeep Martinez MD CC: Dr. Luis M Lama DO; Dr. Luis M Cortés DO; Dr. Gurdeep Martinez MD Signed [facility] 12 Lead EKG [facility] Cardiovascular Services [address] [place] [address] 12 Lead EKG 01/04/24 1207 MR#: [id number] Acct: [id number] Name: ELIZABETH CHEATHAM Rep #: [id number] : 1935 88 From: Gurdeep Martinez MD Attending Dr: Dr. Luis M Cortés DO Status: A DM IN Ordering Dr: Gurdeep Martinez MD Date: 01/04/24 Location: [facility] Sex: F C Admitted: 01/03/24 Test Reason [...] normal variant ( R in aVL , [place] product ) Septal infarct , age undetermined Abnormal ECG Confirmed by Gurdeep Martinez ([id number]), editor in chief newspaper TARA BAE ([id number]) on 01/05/2024 6:32:59 AM Referred By: Luis M Cortés Confirmed By:Gurdeep Martinez 01/05/24 0633 Date Gurdeep Martinez MD CC: Dr. Luis M Lama, DO; Dr. Luis M Cortés, DO; Dr. Gurdeep Martinez MD Signed Normal [facility] Basic Metabolic Profile (BMP )on 01-04-2024 BUN/CRE 26.8 RATIO High 10-20 [facility] Comment on above: Performed By: #### L 500.2500 #### [facility] [address] [place], [address] CA,Total 8.9 mg/dL Normal 8.5-10.1 [facility] Comment on above: Performed By: #### L 500.2500 #### [facility] [address] [place], [address] Chloride [Moles/Vol] 109 mmol/L High 98-[address] [facility] Comment on above: Performed By: #### L 500.2500 #### [facility] [address] [place], [address] CO2 [Moles/Vol] 28.0 mmol/L Normal 21.0-32.0 [facility] Comment on above: Performed By: #### L 500.2500 #### [facility] [address] [place], [address] Creatinine [Mass/Vol] 0.82 mg/dL Normal 0.55-1.02 [facility] Comment on above: Result Comment: The validity of the calculated GFR GFRAA in patients over 70 years has not been determined. Clinical correlation is essential. Performed By: #### L 500.2500 #### [facility] [address] [place], [address] ECRCL 48.14 ml/min Normal [facility] Comment on above: Performed By: #### L 500.2500 #### [facility] [address] [place], [address] EST GFR - AA 85 mL/min Normal >60 [facility] Comment on above: Result Comment: Afri can [place] Islander GFR Calc Performed By: #### L 500.2500 #### [facility] [address] [place], [address] GAP 4 Low 5-15 [facility] Comment on above: Performed By: #### L 500.2500 #### [facility] [address] [place], [address] GFR/1.73 sq M.predicted among non-blacks MDRD (S/P/Bld) [Vol rate/Area] 70 mL/min/{1.73_m2} Normal >60 [facility] Comment on above: Result Comment: Non- GFR Calc Performed By: #### L 500.2500 #### [facility] [address] [place], [address] Glucose [Mass/Vol] 86 mg/dL Normal 74-106 [facility] Comment on above: Performed By: #### L 500.2500 #### [facility] [address] [place], [address] Potassium [Moles/Vol] 4.0 mmol/L Normal 3.5-5.1 [facility] Comment on above: Performed By: #### L 500.2500 #### [facility] [address] [place], [address] Sodium [Moles/Vol] 141 mmol/L Normal 136-145 [facility] Comment on above: Performed By: #### L 500.2500 #### [facility] [address] [place], [address] Urea nitrogen [Mass/Vol] 22 mg/dL High 7-18 [facility] Comment on above: Performed By: #### L 500.2500 #### [facility] [address] [place], [address] Prothrombin Time w/INRon INR Normal [facility] Comment on above: Result Comment: Hortencia garcía via OM: Ordered Performed By: #### L 300.3900 ####[facility] [address] [place], [place], [address] PROTIME Normal 11.7-14.9 [facility] Comment on above: Result Comment: Canc raquel via OM: MD Ordered Performed By: #### L 300.3900 ####[facility] [address] [place], [address] 12 Lead EKG performed by [facility] on 01-03-2024 12 Lead EKG performed by [place] [address] [place] [address] 12 Lead EKG performed by [facility] 01/03/24 0840 MR#: [id number] Acct: [id number] Name: ELIZABETH CHEATHAM Rep #: [id number] : 1935 88 From: Gurdeep Martinez MD Attending Dr: Dr. Gurdeep Martinez MD Status: DE P AMB Ordering Dr: Gurdeep Martinez MD Date: 01/03/24 [place] [facility] [place] F C Admitted: BMS/12 Lead EKG performed by [facility] ECG Report Interpretation A trial fibrillation Voltage criteria for LVH (R(I)+S(III) exceeds 2.50 mV) -Voltage criteria w/o ST/T abnormality may be normal. 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 ABNORMAL Electronically signed on 01/03/2024 at 12:[address] Gurdeep Martinez [employer] Software Version 8610 01/03/24 1221 Date Gurdeep Martinez MD CC: Dr. Luis M Lama, Date Dictated: 01/03/24839 Date Transcribed: 01/03/24839 Optical Instrument Assembler: Signed Normal [facility] CBC W/Diff, Automatedon 08-2 Absolute Lymph 1.16 X10 3/uL Normal 0.83-4.51 [facility] Comment on above: Performed By: #### L 506.0400, L501.20 #### [facility] [address] [place], [address] Absolute Neut 2.3 X10 3/uL Normal 2.0-7.7 [facility] Comment on above: Performed By: #### L 506.0400, L5.20 #### [facility] [address] [place], [address] Basophils/100 WBC (Bld) 0.5 % Normal 0-1 [facility] Comment on above: Performed By: #### L 506.0400, L5.20 #### [facility] [address] [place], [address] Eosinophils/100 WBC (Bld) 0.8 % Normal 0-5 [facility] Comment on above: Performed By: #### L 506.0400, L5.20 #### [facility] [address] [place], [address] Erythrocyte distribution width (RBC) [Ratio] 13.2 % Normal 11.6-14.6 [facility] Comment on above: Performed By: #### L 506.0400, L5.20 #### [facility] [address] [place], [address] Hematocrit (Bld) [Volume fraction] 34.8 % Low 37-47 [facility] Comment on above: Performed By: #### L 506.0400, L5.20 #### [facility] [address] [place], [address] Hemoglobin (Bld) [Mass/Vol] 11.3 g/dL Low 12.0-15.0 [facility] Comment on above: Performed By: #### L 506.0400, L520 #### [facility] [address] [place], [address] IG% 0.300 Normal 0.0-0.9 [facility] Comment on above: Result Comment: IG% - Immature Granulocytes (promyelocytes, myelocytes and metamyelocytes) > 1% indicates that a LEFT SHIFT is Present. Performed By: #### L 506.0400, L5.20 #### [facility] [address] [place], [address] Lymphocytes/100 WBC (Bld) 29.4 % Normal 19-41 [facility] Comment on above: Performed By: #### L 506.0400, 20 #### [facility] [address] [place], [address] MCH (RBC) [Entitic mass] 31.4 pg Normal 27.0-32.0 [facility] Comment on above: Performed By: #### L 506.0400, L5.20 #### [facility] [address] [place], [address] MCHC (RBC) [Mass/Vol] 32.5 g/dL Normal 32-36 [facility] Comment on above: Performed By: #### L 506.0400, L5.20 #### [facility] [address] [place], [address] MCV (RBC) [Entitic vol] 96.7 fL Normal 81-99 [facility] Comment on above: Performed By: #### L 506.0400, L5.20 #### [facility] [address] [place], [address] Monocytes/100 WBC (Bld) 9.6 % Normal 0-10 [facility] Comment on above: Performed By: #### L 506.0400, L520 #### [facility] [address] [place], [address] Neutrophils/100 WBC (Bld) 59.4 % Normal 47-70 [facility] Comment on above: Performed By: #### L 506.0400, L501.20 #### [facility] [address] [place], [address] Nucleated RBC (Bld) [#/Vol] 0 10*3/uL Normal 0-5 [facility] Comment on above: Performed By: #### L 506.0400, L501.20 #### [facility] [address] [place], [address] Platelet mean volume (Bld) [Entitic vol] 9.7 fL Normal 6.2-12.0 [facility] Comment on above: Performed By: #### L 506.0400, L5.20 #### [facility] [address] [place], [address] Platelets (Bld) [#/Vol] 187 10*3/uL Normal 150-450 [facility] Comment on above: Performed By: #### L 506.0400, L5.20 #### [facility] [address] [place], [address] RBC (Bld) [#/Vol] 3.60 10*6/uL Low 4.2-5.4 [facility] Comment on above: Performed By: #### L 506.0400, L501.20 #### [facility] [address] [place], [address] RDW SD 47.4 fl High 35.1-43.9 [facility] Comment on above: Performed By: #### L 506.0400, L5.20 #### [facility] [address] [place], [address] WBC (Bld) [#/Vol] 3.9 10*3/uL Low 4.4-11.0 [facility] Comment on above: Performed By: #### L 506.0400, L501.9520 #### [facility] [address] [place], [address] Cardiology Visit Reporton Cardiology Visit Report [facility] [address] [place] [address] OFFICE VISIT Date of Service: 01/03/24 MR#: [id number] Acct: [id number] Name: ELIZABETH CHEATHAM Rep #: [id number] : 1935 Provider: Dr. Gurdeep patel MD Age/Sex: 88/F Location: [facility] [place] Status: Signed HPI HPI History of Present Illness Details: Ms. Cheatham, a 88 year old lady comes in today with her . She carries a history of paroxysmal atrial fibrillation status post radiofrequency ablation in 2018 at the [facility]. The patient called me last night reporting that she had felt bad and checked her [employer] mobile device and found out that she [...] goes into atrial fibrillation and has a Dryad mobile device that she can document it. [...] air Intake Visit Reasons: See Clinical Note Consulting Application Engineer Required: No Accompanied by: Is patient in [...] PO BID 12/12/23 01/03/24 History mg-copper 1 vw-semeta-zimbpd capsule (PreserVision AREDS-2) doxazosin 2 mg tablet 2 mg PO QHS (more content not included)... Normal [facility] Comprehensive Metabolic Prof ilon 01-03-2024 Albumin [Mass/Vol] 3.5 g/dL Normal 3.2-5.0 [facility] Comment on above: Performed By: #### L 506.0400, L548.2821 #### [facility] [address] [place], [address] Albumin/Globulin [Mass ratio] 1.2 {ratio} Normal 0.9-2.4 [facility] Comment on above: Performed By: #### L 506.0400, L510.6181 #### [facility] [address] [place], [address] ALK P 78 U/L Normal 45-117 [facility] Comment on above: Performed By: #### L 506.0400, L568.0764 #### [facility] [address] [place], [address] ALT [Catalytic activity/Vol] 12 U/L Low 13-56 [facility] Comment on above: Performed By: #### L 506.0400, L501.9520 #### [facility] [address] [place], [address] AST [Catalytic activity/Vol] 18 U/L Normal 15-37 [facility] Comment on above: Performed By: #### L 506.0400, L501.9520 #### [facility] [address] [place], [address] Bilirubin [Mass/Vol] 0.30 mg/dL Normal 0.20-1.[address] [facility] Comment on above: Result Comment: For patients on eltrombopag therapy, use of Dimension [place] TBIL is not recommended. Performed By: #### L 506.0400, L501.9520 #### [facility] [address] [place], [address] BUN/CRE 21.2 RATIO High 10-20 [facility] Comment on above: Performed By: #### L 506.0400, L501.9520 #### [facility] [address] [place], [address] CA,Total 9.3 mg/dL Normal 8.5-10.1 [facility] Comment on above: Performed By: #### L 506.0400, L501.9520 #### [facility] [address] [place], [address] Chloride [Moles/Vol] 106 mmol/L Normal 98-[address] [facility] Comment on above: Performed By: #### L 506.0400, L501.9520 #### [facility] [address] [place], [address] CO2 [Moles/Vol] 29.0 mmol/L Normal 21.0-32.0 [facility] Comment on above: Performed By: #### L 506.0400, L501.9520 #### [facility] [address] [place], [address] Creatinine [Mass/Vol] 0.85 mg/dL Normal 0.55-1.02 [facility] Comment on above: Result Comment: The validity of the calculated GFR GFRAA in patients over 70 years has not been determined. Clinical correlation is essential. Performed By: #### L 506.0400, L5.9520 #### [facility] [address] [place], [address] ECRCL 46.44 ml/min Normal [facility] Comment on above: Performed By: #### L 506.0400, L5.9520 #### [facility] [address] [place], [address] EST GFR - AA 82 mL/min Normal >60 [facility] Comment on above: Result Comment: Afri can [place] GFR Calc Performed By: #### L 506.0400, L5.9520 #### [facility] [address] [place], [address] GAP 4 Low 5-15 [facility] Comment on above: Performed By: #### L 506.0400, L5.20 #### [facility] [address] [place], [address] GFR/1.73 sq M.predicted among non-blacks MDRD (S/P/Bld) [Vol rate/Area] 67 mL/min/{1.73_m2} Normal >60 [facility] Comment on above: Result Comment: Non- GFR Calc Performed By: #### L 506.0400, L5.9520 #### [facility] [address] [place], [address] Globulin (S) [Mass/Vol] 3.0 g/dL Normal 2.2-4.2 [facility] Comment on above: Performed By: #### L 506.0400, L5.9520 #### [facility] [address] [place], [address] Glucose [Mass/Vol] 100 mg/dL Normal 74-106 [facility] Comment on above: Result Comment: Fast ing Glucose result from 100 to 125 mg/dL suggests IMPAIRED HOMEOSTASIS per A.D.A. criteria. Performed By: #### L 506.0400, L501.9520 #### [facility] [address] [place], [address] Potassium [Moles/Vol] 4.3 mmol/L Normal 3.5-5.1 [facility] Comment on above: Performed By: #### L 506.0400, L501.9520 #### [facility] [address] [place], [address] Sodium [Moles/Vol] 139 mmol/L Normal 136-145 [facility] Comment on above: Performed By: #### L 506.0400, L501.9520 #### [facility] [address] [place], [address] T PROT 6.5 g/dL Normal 6.4-8.2 [facility] Comment on above: Performed By: #### L 506.0400, L501.9520 #### [facility] [address] [place], [address] Urea nitrogen [Mass/Vol] 18 mg/dL Normal 7-18 [facility] Comment on above: Performed By: #### L 506.0400, L501.9520 #### [facility] [address] [place], [address] Consultation - Cardiologyon 01-03-2024 Consultation - Cardiology [facility] Medical Records Department [address] [place] [address] Consultation - Cardiology 01/03/24 1551 MR#: [id number] Acct: [id number] Name: SRINIVASCHERIEELIZABETHANDERSON TAPIA Rep #: [id number] : 1935 88 From: Gurdeep Martinez MD PCP: Dr. Luis M Lama, DO Status:ADM IN Location: [place] [id number] Assessment Plan Assessment/Plan (1) Paroxysmal A-fib: PLAN: [...] for detailed examination and plans. [facility] Medical History H/O abdominal pain Difficulty balancing Pure hypercholesterolemia Essential hypertension Family history of colon cancer in mother care home current use of 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 LETICIA (obstructive sleep [...] eye health 12/12/23 Unknown History mg-copper 1 kt-aovyop-tjrfch capsule (PreserVision AREDS-2) doxazosin 2 mg tablet [...] % (Auto) 59.4, Lymph % (Auto) 29.4, [place] % (Auto) 9.6, Eos % (Auto) 0.8, Baso % (Auto) 0.5, Absolute Neuts (auto) 2.3, Absolute Lymphs (auto) 1.16, Nucleated RBC % 0, PT 23.7 H, INR 2.1, Sodium 139, Potassium 4.3, Chloride 106, Carbon Dioxide 29.0, Anion Gap 4 L, BUN 18, Creatinine 0.85, Estim Creat Carline (more content not included)... Normal [facility] H AND P Exam - Hospitaliston 01-03-2024 H&P Exam - Hospitalist [facility] Medical Records Department [address] [place] [address] H P Exam - Hospitalist 01/03/24 1814 MR#: [id number] Acct: [id number] Name: ELIZABETH CHEATHAM Rep #: [id number] : 1935 88 From: Luis M Cortés DO PCP: Dr. Luis M Lama, Status:ADM IN Location: U [id number] HPI - General General Date of Admission: 01/03/24 Date of Service: 01/03/24 Chief Complaint: Atrial fibrillation with poorly controlled rate HPI Narrative ELIZABETH CHEATHAM, is a 88 F who presents to [facility] as a direct admission to PCU at the request of her legal analyst Dr. Martinez. Patient has been intolerant of [...] count and hemoglobin of 11.3. [facility] Medical History H/O abdominal pain Difficulty balancing Pure hypercholesterolemia Essential hypertension Family history of colon cancer in mother care home current use of 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 LETICIA (obstructive sleep [...] eye health 12/12/23 Unknown History mg-copper 1 sf-bukual-vwodrx capsule (PreserVision AREDS-2) doxazosin 2 mg tablet [...] Genitourinary Genito (more content not included)... Normal [facility] Prothrombin Time w/INRon INR Coag (PPP) [Relative time] 2.1 {INR} Normal [facility] Comment on above: Performed By: #### L 506.0400, L576.2683 #### [facility] [address] [place], [place], [id number] PT Coag (PPP) [Time] 23.7 s High 11.7-14.[address] [facility] Comment on above: Performed By: #### L 506.0400, L544.6096 #### [facility] [address] [place], [place], [id number] Prothrombin Time w/INRon INR Coag (PPP) [Relative time] 2.3 {INR} Normal [facility] Comment on above: Performed By: #### L 300.3900 #### [facility] [address] [place], [place], [address] PT Coag (PPP) [Time] 25.4 s High 11.7-14.[address] [facility] Comment on above: Performed By: #### L 300.3900 #### [facility] [address] [place], [place], [address] Zinc, Plasma or Serumon 12-06 ZINC,PLASMA/SER 82 ug/dL Normal 44-115 [facility] Comment on above: Order Comment: Test( s) 709323-[id number], Plasma or Serumwas developed and its performance characteristicsdetermined by [employer]. It has not been cleared or approvedby the Food and Drug Administration. Result Comment: Dete ction Limit = 5 Performed at: [address] [id number] Precision Assembly Inspector: Brian Hinson MD, Phone: [phone] Performed By: #### L [id number] #### [facility] [address] [place], [place], [address] Vitamin B12on 12-13-2023 Cobalamin (Vitamin B12) [Mass/Vol] 772 pg/mL Normal 211-911 [facility] Comment on above: Performed By: #### L 300.3900 #### [facility] [address] [place], [place], [address] Cardiology Visit Reporton Cardiology Visit Report [facility] [address] [place], [place] [address] OFFICE VISIT Date of Service: 12/12/23 MR#: [id number] Acct: [id number] Name: ELIZABETH CHEATHAM Rep #: [id number] : 1935 Provider: JUSTICE carrillo Age/Sex: 88/F Location: [facility] [place] Status: Signed [facility] History of Present Illness Details: Ms. Cheatham, a 88 year old lady comes in today with her . She carries a history of paroxysmal atrial fibrillation status post radiofrequency ablation in 2018 at the [facility]. The patient had been on amiodarone [...] goes into atrial fibrillation and has a Dryad mobile device that she can document it. [...] Visit Reasons: Med Change/ See Clinical Note Consulting Application Engineer Required: No Accompanied by: Is patient in [...] PO BID 12/12/23 12/12/23 History mg-copper 1 [id number] capsule (PreserVision AREDS-2) Ejection fraction %: 60 Have you fallen in the past year?: No PFSH Medical History H/O abdominal pain Difficulty balancing Pure hypercholesterolemia Essential hypertension Family history of colon cancer in mother care home current use of 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 LETICIA (obstructive sleep [...] arrhythmia ( (more content not included)... Normal [facility] Prothrombin Time w/INRon INR Coag (PPP) [Relative time] 2.6 {INR} Normal [facility] Comment on above: Performed By: #### L 506.0400, L501.9520 #### [facility] [address] [place], [address] PT Coag (PPP) [Time] 28.0 s High 11.7-14.[address] [facility] Comment on above: Performed By: #### L 506.0400, L501.9520 #### [facility] [address] [place], [address] Prothrombin Time w/INRon INR Coag (PPP) [Relative time] 2.1 {INR} Normal [facility] Comment on above: Performed By: #### L 300.3900 #### [facility] [address] [place], [address] PT Coag (PPP) [Time] 23.4 s High 11.7-14.[address] [facility] Comment on above: Performed By: #### L 300.3900 #### [facility] [address] [place], [address] Laboratory - CoagulationOrde red By: Shawna Plaza on 09-04-2023 INR Coag (Bld) [Relative time] 1.5 {INR} [facility] PT Coag (PPP) [Time] 18.4 s 11.7-14.[address] [facility] Basophil percentageOrdered B y: Luis M Lama on 08-16-2023 Hemoglobin (Bld) [Mass/Vol] 10.9 g/dL 12.0-15.0 [facility] - CoagulationOrde red By: Shawna Plaza on 07-31-2023 INR Coag (Bld) [Relative time] 2.1 {INR} [facility] PT Coag (PPP) [Time] 23.1 s 11.7-14.[address] [facility] Whole blood hemoglobin A1c/t otal hemoglobin ratio (mass fraction)Ordered By: Shawna Plaza on 07-31-2023 HbA1c (Bld) [Mass fraction] 5.3 % 3.8-5.6 [facility] Comment on above: Normal < 5.7 % Predi abetic 5.7 - 6.4 % Diabetic >or= 6.5 % Please note range changes. Absolute lymphocyte countOrd ered By: Hung Keyes on 07-03-2023 Lymphocytes Auto (Unsp spec) [#/Vol] 1.26 10*3/uL 0.83-4.51 [facility] Automated lymphocyte count a s percentage of total leukocytesOrdered By: Hung Keyes on 07-03-2023 Lymphocytes/100 WBC Auto (Unsp spec) 28.1 % 19-41 [facility] Basophil percentageOrdered B y: Hung Keyes on 07-03-2023 Basophils/100 WBC (Bld) 0.9 % 0-1 [facility] Eosinophils/100 WBC (Bld) 1.8 % 0-5 [facility] Hemoglobin (Bld) [Mass/Vol] 11.2 g/dL 12.0-15.0 [facility] Monocytes/100 WBC (Bld) 10.0 % 0-10 [facility] Neutrophils (Bld) [#/Vol] 2.6 10*3/uL 2.0-7.7 [facility] Neutrophils/100 WBC (Bld) 59.0 % 47-70 [facility] WBC (Bld) [#/Vol] 4.5 10*3/uL 4.4-11.0 [facility] Determination of erythrocyte mean corpuscular volume (MCV)Ordered By: Hung Keyes on 07-03-2023 MCV (RBC) [Entitic vol] 98.3 fL 81-99 [facility] Erythrocyte distribution wid th ratioOrdered By: Hung Keyes on 07-03-2023 Erythrocyte distribution width (RBC) [Ratio] 13.2 % 11.6-14.6 [facility] Erythrocyte distribution wid th standard deviationOrdered By: Hung Keyes on 07-03-2023 Erythrocyte distribution width (RBC) [Entitic vol] 47.2 fL 35.1-43.9 [facility] Hematocrit Auto (Bld) [Volum e fraction]Ordered By: Hung Keyes on 07-03-2023 Hematocrit (Bld) [Volume fraction] 35.3 % 37-47 [facility] Immature granulocytes/100 WB C Auto (Bld)Ordered By: Hung Keyes on 07-03-2023 Immature granulocytes/100 WBC (Bld) 0.200 % 0.0-0.9 [facility] Comment on above: IG% - Immature Granu locytes (promyelocytes, myelocytes and metamyelocytes) > 1% indicates that a LEFT SHIFT is Present. Laboratory - CoagulationOrde red By: Hung Keyes on 07-03-2023 INR Coag (Bld) [Relative time] 3.4 {INR} [facility] PT Coag (PPP) [Time] 34.0 s 11.7-14.[address] [facility] Laboratory - Hematology and Cell countsOrdered By: Hung Keyes on 07-03-2023 MCH (RBC) [Entitic mass] 31.2 pg 27.0-32.0 [facility] MCHC (RBC) [Mass/Vol] 31.7 g/dL 32-36 [facility] Nucleated RBC/100 WBC (Bld) [Ratio] 0 % 0-5 [facility] Platelet mean volume (Bld) [Entitic vol] 10.5 fL 6.2-12.0 [facility] Platelets (Bld) [#/Vol] 207 10*3/uL 150-450 [facility] RBC Auto (Bld) [#/Vol]Ordere d By: Hung Keyes on 07-03-2023 RBC (Bld) [#/Vol] 3.59 10*6/uL 4.2-5.4 [facility] Absolute lymphocyte countOrd ered By: Gurdeep Martinez on 05-31-2023 Lymphocytes Auto (Unsp spec) [#/Vol] 1.27 10*3/uL 0.83-4.51 [facility] Automated lymphocyte count a s percentage of total leukocytesOrdered By: Gurdeep Martinez on 05-31-2023 Lymphocytes/100 WBC Auto (Unsp spec) 23.2 % 19-41 [facility] Basophil percentageOrdered B y: Gurdeep Martinez on 05-31-2023 Basophils/100 WBC (Bld) 0.5 % 0-1 [facility] Eosinophils/100 WBC (Bld) 1.3 % 0-5 [facility] Hemoglobin (Bld) [Mass/Vol] 11.3 g/dL 12.0-15.0 [facility] Monocytes/100 WBC (Bld) 9.5 % 0-10 [facility] Neutrophils (Bld) [#/Vol] 3.6 10*3/uL 2.0-7.7 [facility] Neutrophils/100 WBC (Bld) 65.1 % 47-70 [facility] WBC (Bld) [#/Vol] 5.5 10*3/uL 4.4-11.0 [facility] Bilirubin [Mass/Vol] 0.40 mg/dL 0.20-1.[address] [facility] Comment on above: For patients on eltr ombopag therapy, use of Dimension [place] TBIL is not recommended. Chloride [Moles/Vol] 106 mmol/L 98-[address] [facility] Cholesterol [Mass/Vol] 167 mg/dL <200 [facility] Comment on above: <200 mg/dL Desirable 200-240 mg/dL Borderline >240 mg/dL High Risk Glucose [Mass/Vol] 89 mg/dL 74-106 [facility] Potassium [Moles/Vol] 4.6 mmol/L 3.5-5.1 [facility] Protein [Mass/Vol] 6.9 g/dL 6.4-8.2 [facility] Sodium [Moles/Vol] 138 mmol/L 136-145 [facility] Triglyceride [Mass/Vol] 73 mg/dL <199 [facility] Comment on above: The drugs N-Acetylcy steine and Metamizole may falsely depress this assay.Serum Triglycerides Reference Interval Normal <150 mg/dL Borderline high 150 - 199 mg/dL High 200 - 499 mg/dL Very High > or = 500 mg/dL Determination of erythrocyte mean corpuscular volume (MCV)Ordered By: Gurdeep Martinez on 05-31-2023 MCV (RBC) [Entitic vol] 97.8 fL 81-99 [facility] Direct bilirubinOrdered By: Gurdeep Martinez on 05-31-2023 Bilirubin.direct [Mass/Vol] 0.13 mg/dL 0.00-0.30 [facility] Erythrocyte distribution wid th ratioOrdered By: Gurdeep Martinez on 05-31-2023 Erythrocyte distribution width (RBC) [Ratio] 13.0 % 11.6-14.6 [facility] Erythrocyte distribution wid th standard deviationOrdered By: Gurdeep Martinez on 05-31-2023 Erythrocyte distribution width (RBC) [Entitic vol] 46.7 fL 35.1-43.9 [facility] Hematocrit Auto (Bld) [Volum e fraction]Ordered By: Gurdeep Martinez on 05-31-2023 Hematocrit (Bld) [Volume fraction] 35.2 % 37-47 [facility] High density lipoprotein (HD L) measurementOrdered By: Gurdeep Martinez on 05-31-2023 Cholesterol in HDL (Body fld) [Mass/Vol] 63 mg/dL >40 [facility] Comment on above: The drugs N-Acetylcy steine and Metamizole may falsely depress this assay. Reference Range HDL <40 mg/dL Low HDL Cholesterol HDL >or= 60 mg/dL High HDL Cholesterol Immature granulocytes/100 WB C Auto (Bld)Ordered By: Gurdeep Martinez on 05-31-2023 Immature granulocytes/100 WBC (Bld) 0.400 % 0.0-0.9 [facility] Comment on above: IG% - Immature Granu locytes (promyelocytes, myelocytes and metamyelocytes) > 1% indicates that a LEFT SHIFT is Present. International normalized rat io (INR) calculationOrdered By: Gurdeep Martinez on 05-31-2023 INR Coag (PPP) [Relative time] 3.0 {INR} [facility] - Chemistry and C hemistry - challengeOrdered By: Gurdeep Martinez on 05-31-2023 Albumin/Globulin [Mass ratio] 1.2 {ratio} 0.9-2.4 [facility] ALP [Catalytic activity/Vol] 82 U/L 45-117 [facility] ALT [Catalytic activity/Vol] 18 U/L 13-56 [facility] CO2 [Moles/Vol] 28.0 mmol/L 21.0-32.0 [facility] Globulin (S) [Mass/Vol] 3.2 g/dL 2.2-4.2 [facility] Urea nitrogen/Creatinine [Mass ratio] 25.2 mg/mg 10-20 [facility] - CoagulationOrde red By: Gurdeep Martinez on 05-31-2023 PT Coag (PPP) [Time] 31.6 s 11.7-14.[address] [facility] Laboratory - Hematology and Cell countsOrdered By: Gurdeep Martinez on 05-31-2023 MCH (RBC) [Entitic mass] 31.4 pg 27.0-32.0 [facility] MCHC (RBC) [Mass/Vol] 32.1 g/dL 32-36 [facility] Nucleated RBC/100 WBC (Bld) [Ratio] 0 % 0-5 [facility] Platelets (Bld) [#/Vol] 208 10*3/uL 150-450 [facility] Low density lipoprotein (LDL ) cholesterol measurementOrdered By: Gurdeep Martinez on 05-31-2023 Cholesterol in LDL (Body fld) [Moles/Vol] 89 mg/dL 0-130 [facility] No Panel InformationOrdered By: Gurdeep Martinez on 05-31-2023 Estimated GFR (MDRD) Amer 65 mL/min >60 [facility] Comment on above: GFR Calc Estimated GFR (MDRD) Non-Af Amer 54 mL/min >60 [facility] Comment on above: Non- GFR Calc Platelet mean volume Yair-Ec ker (Bld) [Entitic vol]Ordered By: Gurdeep Martinez on 05-31-2023 Platelet mean volume (Bld) [Entitic vol] 10.5 fL 6.2-12.0 [facility] RBC Auto (Bld) [#/Vol]Ordere d By: Gurdeep Martinez on 05-31-2023 RBC (Bld) [#/Vol] 3.60 10*6/uL 4.2-5.4 [facility] Serum or plasma calcium dimple urement (mass/volume)Ordered By: Gurdeep Martinez on 05-31-2023 Calcium [Mass/Vol] 9.4 mg/dL 8.5-10.1 [facility] Serum or plasma creatinine m easurement (mass/volume)Ordered By: Gurdeep Martinez on 05-31-2023 Creatinine [Mass/Vol] 1.03 mg/dL 0.55-1.02 [facility] Comment on above: The validity of the calculated GFR & GFRAA in patients over 70 years has not been determined. Clinical correlation is essential. Serum or plasma thyroid stim ulating hormone (TSH) measurement (units/volume)Ordered By: Gurdeep Martinez on 05-31-2023 TSH Qn 2.62 uIU/mL 0.358-3.74 [facility] Serum or plasma urea nitroge n measurement (mass/volume)Ordered By: Gurdeep Martinez on 05-31-2023 Urea nitrogen [Mass/Vol] 26 mg/dL 7-18 [facility] Thin prep Papanicolaou smear with manual screeningOrdered By: Gurdeep Martinez on 05-31-2023 Thin prep Papanicolaou smear with manual screening 3.7 g/dL 3.2-5.0 [facility] Thin prep Papanicolaou smear with manual screening 23 U/L 15-37 [facility] Thin prep Papanicolaou smear with manual screening 4 5-15 [facility] Thin prep Papanicolaou smear with manual screening 1.93 ng/dL 0.76-1.46 [facility] Very low density lipoprotein (VLDL) cholesterol measurementOrdered By: Gurdeep Martinez on 05-31-2023 Cholesterol in VLDL Calc [Moles/Vol] 15 mg/dL 5-40 [facility] Basophil percentageOrdered B y: Luis M Lama on 05-04-2023 LDH [Catalytic activity/Vol] 239 U/L 84-246 [facility] Iron measurement (mass/mass) Ordered By: Luis M Lama on 05-04-2023 Iron (Unsp spec) [Mass/Mass] 57 ug/dL 50-170 [facility] - Chemistry and C hemistry - challengeOrdered By: Luis M Lama on 05-04-2023 Cobalamin (Vitamin B12) [Mass/Vol] 1022 pg/mL 211-911 [facility] Serum or plasma ferritin edith surement (mass/volume)Ordered By: Luis M Lama on 05-04-2023 Ferritin [Mass/Vol] 55 ng/mL 8-252 [facility] Absolute lymphocyte countOrd ered By: Shawna Plaza on 04-24-2023 Lymphocytes Auto (Unsp spec) [#/Vol] 1.25 10*3/uL 0.83-4.51 [facility] Basophil percentageOrdered B y: Shawna Plaza on 04-24-2023 Basophils/100 WBC (Bld) 0.8 % 0-1 [facility] Bilirubin [Mass/Vol] 0.30 mg/dL 0.20-1.[address] [facility] Comment on above: For patients on eltr ombopag therapy, use of Dimension [place] TBIL is not recommended. Chloride [Moles/Vol] 109 mmol/L 98-[address] [facility] Cholesterol [Mass/Vol] 168 mg/dL <200 [facility] Comment on above: <200 mg/dL Desirable 200-240 mg/dL Borderline >240 mg/dL High Risk Eosinophils/100 WBC (Bld) 1.1 % 0-5 [facility] Glucose [Mass/Vol] 85 mg/dL 74-106 [facility] Neutrophils (Bld) [#/Vol] 2.0 10*3/uL 2.0-7.7 [facility] Neutrophils/100 WBC (Bld) 53.6 % 47-70 [facility] Potassium [Moles/Vol] 4.5 mmol/L 3.5-5.1 [facility] Protein [Mass/Vol] 6.4 g/dL 6.4-8.2 [facility] Sodium [Moles/Vol] 142 mmol/L 136-145 [facility] Triglyceride [Mass/Vol] 66 mg/dL <199 [facility] Comment on above: The drugs N-Acetylcy steine and Metamizole may falsely depress this assay.Serum Triglycerides Reference Interval Normal <150 mg/dL Borderline high 150 - 199 mg/dL High 200 - 499 mg/dL Very High > or = 500 mg/dL WBC (Bld) [#/Vol] 3.7 10*3/uL 4.4-11.0 [facility] Blood erythrocytes count (nu mber/volume)Ordered By: Shawna Plaza on 04-24-2023 RBC (Bld) [#/Vol] 3.34 10*6/uL 4.2-5.4 [facility] Blood hemoglobin measurement (mass/volume)Ordered By: Shawna Plaza on 04-24-2023 Hemoglobin (Bld) [Mass/Vol] 10.5 g/dL 12.0-15.0 [facility] Blood lymphocytes/100 leukoc ytesOrdered By: Shawna Plaza on 04-24-2023 Lymphocytes/100 WBC (Bld) 33.5 % 19-41 [facility] Blood monocytes/100 leukocyt esOrdered By: Shawna Plaza on 04-24-2023 Monocytes/100 WBC (Bld) 10.7 % 0-10 [facility] Blood platelet mean volumeOr dered By: Shawna Plaza on 04-24-2023 Platelet mean volume (Bld) [Entitic vol] 10.4 fL 6.2-12.0 [facility] Determination of erythrocyte mean corpuscular volume (MCV)Ordered By: Shawna Plaza on 04-24-2023 MCV (RBC) [Entitic vol] 100.9 fL 81-99 [facility] Direct bilirubinOrdered By: Shawna Plaza on 04-24-2023 Bilirubin.direct [Mass/Vol] 0.06 mg/dL 0.00-0.30 [facility] Hematocrit Auto (Bld) [Volum e fraction]Ordered By: Shawna Plaza on 04-24-2023 Hematocrit (Bld) [Volume fraction] 33.7 % 37-47 [facility] INR in Blood by Coagulation assayOrdered By: Shawna Plaza on 04-24-2023 INR Coag (Bld) [Relative time] 2.5 {INR} [facility] - Chemistry and C hemistry - challengeOrdered By: Shawna Plaza on 04-24-2023 ALP [Catalytic activity/Vol] 70 U/L 45-117 [facility] ALT [Catalytic activity/Vol] 18 U/L 13-56 [facility] CO2 [Moles/Vol] 29.0 mmol/L 21.0-32.0 [facility] Free T4 [Mass/Vol] 1.54 ng/dL 0.76-1.46 [facility] Globulin (S) [Mass/Vol] 3.0 g/dL 2.2-4.2 [facility] Urea nitrogen/Creatinine [Mass ratio] 20.5 mg/mg 10-20 [facility] - CoagulationOrde red By: Shawna Plaza on 04-24-2023 PT Coag (PPP) [Time] 27.3 s 11.7-14.[address] [facility] Laboratory - Hematology and Cell countsOrdered By: Shawna Plaza on 04-24-2023 Erythrocyte distribution width (RBC) [Entitic vol] 50.0 fL 35.1-43.9 [facility] Erythrocyte distribution width (RBC) [Ratio] 13.4 % 11.6-14.6 [facility] Immature granulocytes/100 WBC (Bld) 0.300 % 0.0-0.9 [facility] Comment on above: IG% - Immature Granu locytes (promyelocytes, myelocytes and metamyelocytes) > 1% indicates that a LEFT SHIFT is Present. MCH (RBC) [Entitic mass] 31.4 pg 27.0-32.0 [facility] Nucleated RBC/100 WBC (Bld) [Ratio] 0 % 0-5 [facility] MCHC Auto (RBC) [Mass/Vol]Or dered By: Shawna Plaza on 04-24-2023 MCHC (RBC) [Mass/Vol] 31.2 g/dL 32-36 [facility] No Panel InformationOrdered By: Shawna Plaza on 04-24-2023 Estimated GFR (MDRD) Amer 59 mL/min >60 [facility] Comment on above: GFR Calc Estimated GFR (MDRD) Non-Af Amer 49 mL/min >60 [facility] Comment on above: Non- GFR Calc Thyroid Stimulating Hormone (TSH) 3.73 uIU/mL 0.358-3.74 [facility] Platelets bldOrdered By: Scottie Plaza on 04-24-2023 Platelets (Bld) [#/Vol] 214 10*3/uL 150-450 [facility] Serum or plasma albumin dimple urement (mass/volume)Ordered By: Shawna Plaza on 04-24-2023 Albumin [Mass/Vol] 3.4 g/dL 3.2-5.0 [facility] Serum or plasma albumin/glob ulin mass ratioOrdered By: Shawna Plaza on 04-24-2023 Albumin/Globulin [Mass ratio] 1.1 {ratio} 0.9-2.4 [facility] Serum or plasma calcium dimple urement (mass/volume)Ordered By: Shawna Plaza on 04-24-2023 Calcium [Mass/Vol] 8.4 mg/dL 8.5-10.1 [facility] Serum or plasma cholesterol in HDL measurement (mass/volume)Ordered By: Shawna Plaza on 04-24-2023 Cholesterol in HDL [Mass/Vol] 65 mg/dL >40 [facility] Comment on above: The drugs N-Acetylcy steine and Metamizole may falsely depress this assay. Reference Range HDL <40 mg/dL Low HDL Cholesterol HDL >or= 60 mg/dL High HDL Cholesterol Serum or plasma cholesterol in VLDL measurement (mass/volume)Ordered By: Shawna Plaza on 04-24-2023 Cholesterol in VLDL [Mass/Vol] 13 mg/dL 5-40 [facility] Serum or plasma creatinine m easurement (mass/volume)Ordered By: Shawna Plaza on 04-24-2023 Creatinine [Mass/Vol] 1.12 mg/dL 0.55-1.02 [facility] Comment on above: The validity of the calculated GFR & GFRAA in patients over 70 years has not been determined. Clinical correlation is essential. Serum or plasma low density lipoprotein (LDL) cholesterol measurement (mass/volume)Ordered By: Shawna Plaza on 04-24-2023 Cholesterol in LDL [Mass/Vol] 90 mg/dL 0-130 [facility] Serum or plasma urea nitroge n measurement (mass/volume)Ordered By: Shawna Plaza on 04-24-2023 Urea nitrogen [Mass/Vol] 23 mg/dL 7-18 [facility] Thin prep Papanicolaou smear with manual screeningOrdered By: Shawna Plaza on 04-24-2023 Thin prep Papanicolaou smear with manual screening 26 U/L 15-37 [facility] Thin prep Papanicolaou smear with manual screening 4 5-15 [facility] INR in Blood by Coagulation assayOrdered By: Shawna Plaza on 03-27-2023 INR Coag (Bld) [Relative time] 2.8 {INR} [facility] - CoagulationOrde red By: Shawna Plaza on 03-27-2023 PT Coag (PPP) [Time] 29.5 s 11.7-14.[address] [facility] INR in Blood by Coagulation assayOrdered By: Shawna Plaza on 02-27-2023 INR Coag (Bld) [Relative time] 2.6 {INR} [facility] - CoagulationOrde red By: Shawna Plaza on 02-27-2023 PT Coag (PPP) [Time] 28.0 s 11.7-14.[address] [facility] INR in Blood by Coagulation assayOrdered By: Shawna Plaza on 01-30-2023 INR Coag (Bld) [Relative time] 3.7 {INR} [facility] - CoagulationOrde red By: Shawna Plaza on 01-30-2023 PT Coag (PPP) [Time] 37.1 s 11.7-14.[address] [facility] INR in Blood by Coagulation assayOrdered By: Clement Luna on 01-02-2023 INR Coag (Bld) [Relative time] 2.8 {INR} [facility] - CoagulationOrde red By: Clement Luna on 01-02-2023 PT Coag (PPP) [Time] 30.3 s 11.7-14.[address] [facility] Culture, urineOrdered By: Julianna Lama on 12-29-2022 Bacteria identified Cx Nom (U) ESBL Escherichia coli [facility] Bacteria identified Cx Nom (U) ESBL Escherichia coli [facility] INR in Blood by Coagulation assayOrdered By: Sebastián Bolaños on 12-05-2022 INR Coag (Bld) [Relative time] 2.2 {INR} [facility] - CoagulationOrde red By: Sebastián Bolaños on 12-05-2022 PT Coag (PPP) [Time] 24.4 s 11.7-14.[address] [facility] INR in Blood by Coagulation assayOrdered By: Sebastián Bolaños on 11-21-2022 INR Coag (Bld) [Relative time] 2.1 {INR} [facility] - CoagulationOrde red By: Sebastián Bolaños on 11-21-2022 PT Coag (PPP) [Time] 23.7 s 11.7-14.[address] [facility] INR in Blood by Coagulation assayOrdered By: Sebastián Bolaños on 11-14-2022 INR Coag (Bld) [Relative time] 3.7 {INR} [facility] - CoagulationOrde red By: Sebastián Bolaños on 11-14-2022 PT Coag (PPP) [Time] 37.2 s 11.7-14.[address] [facility] Absolute lymphocyte countOrd ered By: Dr. Riley on 10-22-2022 Lymphocytes Auto (Unsp spec) [#/Vol] 1.42 10*3/uL 0.83-4.51 [facility] Basophil percentageOrdered B y: Dr. Riley on 10-22-2022 Basophils/100 WBC (Bld) 0.6 % 0-1 [facility] Chloride [Moles/Vol] 108 mmol/L 98-[address] [facility] Eosinophils/100 WBC (Bld) 1.4 % 0-5 [facility] Glucose [Mass/Vol] 101 mg/dL 74-106 [facility] Comment on above: Fasting Glucose resu lt from 100 to 125 mg/dL suggests IMPAIRED HOMEOSTASIS per A.D.A. criteria. Neutrophils (Bld) [#/Vol] 3.0 10*3/uL 2.0-7.7 [facility] Neutrophils/100 WBC (Bld) 60.8 % 47-70 [facility] Potassium [Moles/Vol] 4.4 mmol/L 3.5-5.1 [facility] Sodium [Moles/Vol] 141 mmol/L 136-145 [facility] WBC (Bld) [#/Vol] 5.0 10*3/uL 4.4-11.0 [facility] Blood erythrocytes count (nu mber/volume)Ordered By: Dr. Riley on 10-22-2022 RBC (Bld) [#/Vol] 3.65 10*6/uL 4.2-5.4 [facility] Blood hemoglobin measurement (mass/volume)Ordered By: Dr. Riley on 10-22-2022 Hemoglobin (Bld) [Mass/Vol] 11.6 g/dL 12.0-15.0 [facility] Blood lymphocytes/100 leukoc ytesOrdered By: Dr. Riley on 10-22-2022 Lymphocytes/100 WBC (Bld) 28.7 % 19-41 [facility] Blood monocytes/100 leukocyt esOrdered By: Dr. Riley on 10-22-2022 Monocytes/100 WBC (Bld) 8.1 % 0-10 [facility] Blood platelet mean volumeOr dered By: Dr. Riley on 10-22-2022 Platelet mean volume (Bld) [Entitic vol] 9.8 fL 6.2-12.0 [facility] Determination of erythrocyte mean corpuscular volume (MCV)Ordered By: Dr. Riley on 10-22-2022 MCV (RBC) [Entitic vol] 97.0 fL 81-99 [facility] Hematocrit Auto (Bld) [Volum e fraction]Ordered By: Dr. Riley on 10-22-2022 Hematocrit (Bld) [Volume fraction] 35.4 % 37-47 [facility] INR in Blood by Coagulation assayOrdered By: Dr. Riley on 10-22-2022 INR Coag (Bld) [Relative time] 2.3 {INR} [facility] - Chemistry and C hemistry - challengeOrdered By: Dr. Riley on 10-22-2022 CO2 [Moles/Vol] 31.0 mmol/L 21.0-32.0 [facility] Natriuretic peptide B (Bld) [Mass/Vol] 300.6 pg/mL 0-100 [facility] Urea nitrogen/Creatinine [Mass ratio] 27.2 mg/mg 10-20 [facility] - CoagulationOrde red By: Dr. Riley on 10-22-2022 PT Coag (PPP) [Time] 25.9 s 11.7-14.[address] [facility] Laboratory - Hematology and Cell countsOrdered By: Dr. Riley on 10-22-2022 Erythrocyte distribution width (RBC) [Entitic vol] 46.3 fL 35.1-43.9 [facility] Erythrocyte distribution width (RBC) [Ratio] 12.9 % 11.6-14.6 [facility] Immature granulocytes/100 WBC (Bld) 0.400 % 0.0-0.9 [facility] Comment on above: IG% - Immature Granu locytes (promyelocytes, myelocytes and metamyelocytes) > 1% indicates that a LEFT SHIFT is Present. MCH (RBC) [Entitic mass] 31.8 pg 27.0-32.0 [facility] Nucleated RBC/100 WBC (Bld) [[facility]] 0 % 0-5 [facility] [Mass/Vol]Or dered By: Dr. Riley on 10-22-2022 MCHC (RBC) [Mass/Vol] 32.8 g/dL 32-36 [facility] No Panel InformationOrdered By: Dr. Riley on 10-22-2022 Estimated Creatinine Clearance Calc 45.69 ml/min [facility] Estimated GFR (MDRD) Amer 87 mL/min >60 [facility] Comment on above: GFR Calc Estimated GFR (MDRD) Non-Af Amer 72 mL/min >60 [facility] Comment on above: Non- GFR Calc Troponin I High Sensitivity 9 pg/mL 3.0-54.0 [facility] Comment on above: Please Note: New Michelle t Units and Gender Specific Reference Ranges. For more information see Policy Stat Procedure [place] High Sensitivity Troponin (TNIH) and attachments. Platelets bldOrdered By: Dr. Riley on 10-22-2022 Platelets (Bld) [#/Vol] 200 10*3/uL 150-450 [facility] Serum or plasma calcium dimple urement (mass/volume)Ordered By: Dr. Riley on 10-22-2022 Calcium [Mass/Vol] 9.3 mg/dL 8.5-10.1 [facility] Serum or plasma creatinine m easurement (mass/volume)Ordered By: Dr. Riley on 10-22-2022 Creatinine [Mass/Vol] 0.81 mg/dL 0.55-1.02 [facility] Comment on above: The validity of the calculated GFR & GFRAA in patients over 70 years has not been determined. Clinical correlation is essential. Serum or plasma urea nitroge n measurement (mass/volume)Ordered By: Dr. Riley on 10-22-2022 Urea nitrogen [Mass/Vol] 22 mg/dL 7-18 [facility] Thin prep Papanicolaou smear with manual screeningOrdered By: Dr. Riely on 10-22-2022 Thin prep Papanicolaou smear with manual screening 2 5-15 [facility] Basophil percentageOrdered B y: Dr. Bolaños on 10-10-2022 Bilirubin [Mass/Vol] 0.40 mg/dL 0.20-1.[address] [facility] Comment on above: For patients on eltr ombopag therapy, use of Dimension [place] TBIL is not recommended. Cholesterol [Mass/Vol] 153 mg/dL <200 [facility] Comment on above: <200 mg/dL Desirable 200-240 mg/dL Borderline >240 mg/dL High Risk Protein [Mass/Vol] 6.6 g/dL 6.4-8.2 [facility] Triglyceride [Mass/Vol] 88 mg/dL <199 [facility] Comment on above: The drugs N-Acetylcy steine and Metamizole may falsely depress this assay.Serum Triglycerides Reference Interval Normal <150 mg/dL Borderline high 150 - 199 mg/dL High 200 - 499 mg/dL Very High > or = 500 mg/dL Direct bilirubinOrdered By: Dr. Bolaños on 10-10-2022 Bilirubin.direct [Mass/Vol] 0.12 mg/dL 0.00-0.30 [facility] INR in Blood by Coagulation assayOrdered By: Dr. Bolaños on 10-10-2022 INR Coag (Bld) [Relative time] 1.9 {INR} [facility] Laboratory - Chemistry and C hemistry - challengeOrdered By: Dr. Bolaños on 10-10-2022 ALP [Catalytic activity/Vol] 81 U/L 45-117 [facility] ALT [Catalytic activity/Vol] 16 U/L 13-56 [facility] Globulin (S) [Mass/Vol] 3.1 g/dL 2.2-4.2 [facility] Laboratory - CoagulationOrde red By: Dr. Bolaños on 10-10-2022 PT Coag (PPP) [Time] 22.2 s 11.7-14.[address] [facility] Serum or plasma albumin dimple urement (mass/volume)Ordered By: Dr. Bolaños on 10-10-2022 Albumin [Mass/Vol] 3.5 g/dL 3.2-5.0 [facility] Serum or plasma cholesterol in HDL measurement (mass/volume)Ordered By: Dr. Bolaños on 10-10-2022 Cholesterol in HDL [Mass/Vol] 54 mg/dL >40 [facility] Comment on above: The drugs N-Acetylcy steine and Metamizole may falsely depress this assay. Reference Range HDL <40 mg/dL Low HDL Cholesterol HDL >or= 60 mg/dL High HDL Cholesterol Serum or plasma cholesterol in VLDL measurement (mass/volume)Ordered By: Dr. Bolaños on 10-10-2022 Cholesterol in VLDL [Mass/Vol] 18 mg/dL 5-40 [facility] Serum or plasma low density lipoprotein (LDL) cholesterol measurement (mass/volume)Ordered By: Dr. Bolaños on 10-10-2022 Cholesterol in LDL [Mass/Vol] 81 mg/dL 0-130 [facility] Thin prep Papanicolaou smear with manual screeningOrdered By: Dr. Bolaños on 10-10-2022 Thin prep Papanicolaou smear with manual screening 17 U/L 15-37 [facility] Laboratory - CoagulationOrde red By: Dr. Bolaños on 09-12-2022 INR Coag (Bld) [Relative time] 2.0 {INR} [facility] Comment on above: Critical Value > 4.0 Whole blood prothrombin time Ordered By: Dr. Bolaños on 09-12-2022 PT Coag (Bld) [Time] 21.7 s 11.7-14.[address] [facility] Basophil percentageOrdered B y: Courteny Perales on 08-22-2022 Chloride [Moles/Vol] 103 mmol/L 98-[address] [facility] Glucose [Mass/Vol] 104 mg/dL 74-106 [facility] Comment on above: Fasting Glucose resu lt from 100 to 125 mg/dL suggests IMPAIRED HOMEOSTASIS per A.D.A. criteria. Potassium [Moles/Vol] 4.2 mmol/L 3.5-5.1 [facility] Sodium [Moles/Vol] 135 mmol/L 136-145 [facility] INR in Blood by Coagulation assayOrdered By: Courtney Perales on 08-22-2022 INR Coag (Bld) [Relative time] 2.5 {INR} [facility] Laboratory - Chemistry and C hemistry - challengeOrdered By: Courtney Perales on 08-22-2022 CO2 [Moles/Vol] 32.0 mmol/L 21.0-32.0 [facility] Urea nitrogen/Creatinine [Mass ratio] 24.3 mg/mg 10-20 [facility] - CoagulationOrde red By: Courtney Perales on 08-22-2022 PT Coag (PPP) [Time] 26.8 s 11.7-14.[address] [facility] No Panel InformationOrdered By: Courtney Perales on 08-22-2022 Estimated GFR (MDRD) Amer 69 mL/min >60 [facility] Comment on above: GFR Calc Estimated GFR (MDRD) Non-Af Amer 57 mL/min >60 [facility] Comment on above: Non- GFR Calc Serum or plasma calcium dimple urement (mass/volume)Ordered By: Courtney Perales on 08-22-2022 Calcium [Mass/Vol] 9.3 mg/dL 8.5-10.1 [facility] Serum or plasma creatinine m easurement (mass/volume)Ordered By: Courtney Perales on 08-22-2022 Creatinine [Mass/Vol] 0.99 mg/dL 0.55-1.02 [facility] Comment on above: The validity of the calculated GFR & GFRAA in patients over 70 years has not been determined. Clinical correlation is essential. Serum or plasma urea nitroge n measurement (mass/volume)Ordered By: Courtney Perales on 08-22-2022 Urea nitrogen [Mass/Vol] 24 mg/dL 7-18 [facility] Thin prep Papanicolaou smear with manual screeningOrdered By: Courtney Perales on 08-22-2022 Thin prep Papanicolaou smear with manual screening 0 5-15 [facility] Laboratory - CoagulationOrde red By: Shawna Plaza on 08-08-2022 INR Coag (Bld) [Relative time] 2.6 {INR} [facility] Comment on above: Critical Value > 4.0 Whole blood prothrombin time Ordered By: Shawna Plaza on 08-08-2022 PT Coag (Bld) [Time] 27.7 s 11.7-14.[address] [facility] Laboratory - CoagulationOrde red By: Dr. Bolaños on 08-01-2022 INR Coag (Bld) [Relative time] 3.2 {INR} [facility] Comment on above: Critical Value > 4.0 Whole blood prothrombin time Ordered By: Dr. Bolaños on 08-01-2022 PT Coag (Bld) [Time] 34.2 s 11.7-14.[address] [facility] Laboratory - CoagulationOrde red By: Dr. Bolaños on 07-25-2022 INR Coag (Bld) [Relative time] 3.4 {INR} [facility] Comment on above: Critical Value > 4.0 Whole blood prothrombin time Ordered By: Dr. Bolaños on 07-25-2022 PT Coag (Bld) [Time] 35.6 s 11.7-14.[address] [facility] Laboratory - CoagulationOrde red By: Dr. Bolaños on 07-18-2022 INR Coag (Bld) [Relative time] 2.2 {INR} [facility] Comment on above: Critical Value > 4.0 Whole blood prothrombin time Ordered By: Dr. Bolaños on 07-18-2022 PT Coag (Bld) [Time] 26.1 s 11.7-14.[address] [facility] Laboratory - Microbiology an d Antimicrobial susceptibilityon 06-27-2022 S. pyogenes Ag IA Ql (Unsp spec) Negative [facility] Basophil percentageOrdered B y: Dr. Bolaños on 04-11-2022 Bilirubin [Mass/Vol] 0.40 mg/dL 0.20-1.[address] [facility] Comment on above: For patients on eltr ombopag therapy, use of Dimension [place] TBIL is not recommended. Cholesterol [Mass/Vol] 167 mg/dL <200 [facility] Comment on above: <200 mg/dL Desirable 200-240 mg/dL Borderline >240 mg/dL High Risk Protein [Mass/Vol] 6.6 g/dL 6.4-8.2 [facility] Triglyceride [Mass/Vol] 124 mg/dL <199 [facility] Comment on above: The drugs N-Acetylcy steine and Metamizole may falsely depress this assay.Serum Triglycerides Reference Interval Normal <150 mg/dL Borderline high 150 - 199 mg/dL High 200 - 499 mg/dL Very High > or = 500 mg/dL Direct bilirubinOrdered By: Dr. Bolaños on 04-11-2022 Bilirubin.direct [Mass/Vol] 0.13 mg/dL 0.00-0.30 [facility] Laboratory - Chemistry and C hemistry - challengeOrdered By: Dr. Bolaños on 04-11-2022 ALP [Catalytic activity/Vol] 85 U/L 45-117 [facility] ALT [Catalytic activity/Vol] 23 U/L 13-56 [facility] Globulin (S) [Mass/Vol] 2.8 g/dL 2.2-4.2 [facility] Serum or plasma albumin dimple urement (mass/volume)Ordered By: Dr. Bolaños on 04-11-2022 Albumin [Mass/Vol] 3.8 g/dL 3.2-5.0 [facility] Serum or plasma cholesterol in HDL measurement (mass/volume)Ordered By: Dr. Bolaños on 04-11-2022 Cholesterol in HDL [Mass/Vol] 60 mg/dL >40 [facility] Comment on above: The drugs N-Acetylcy steine and Metamizole may falsely depress this assay. Reference Range HDL <40 mg/dL Low HDL Cholesterol HDL >or= 60 mg/dL High HDL Cholesterol Serum or plasma cholesterol in VLDL measurement (mass/volume)Ordered By: Dr. Bolaños on 04-11-2022 Cholesterol in VLDL [Mass/Vol] 25 mg/dL 5-40 [facility] Serum or plasma low density lipoprotein (LDL) cholesterol measurement (mass/volume)Ordered By: Dr. Bolaños on 04-11-2022 Cholesterol in LDL [Mass/Vol] 82 mg/dL 0-130 [facility] Thin prep Papanicolaou smear with manual screeningOrdered By: Dr. Bolaños on 04-11-2022 Thin prep Papanicolaou smear with manual screening 18 U/L 15-37 [facility] Stool gastrointestinal hemog lobin detection by immunologic methodOrdered By: Dr. Valerio on 04-05-2022 Lower GI hemoglobin IA Ql (Stl) [facility] Absolute lymphocyte counton 03-17-2022 Lymphocytes Auto (Unsp spec) [#/Vol] 1.81 10*3/uL 0.83-4.51 [facility] Work Phone: Basophil percentageon 2021 Basophils/100 WBC (Bld) 0.7 % 0-1 [facility] Work Phone: Chloride [Moles/Vol] 103 mmol/L 98-[address] [facility] Work Phone: Eosinophils/100 WBC (Bld) 0.9 % 0-5 [facility] Work Phone: Glucose [Mass/Vol] 146 mg/dL 74-106 [facility] Work Phone: Comment on above: Fasting Glucose resu lt greater than or equal to 126 mg/dL suggests DIABETES MELLITUS per A.D.A. criteria. Neutrophils (Bld) [#/Vol] 2.2 10*3/uL 2.0-7.7 [facility] Work Phone: [phone] Neutrophils/100 WBC (Bld) 49.9 % 47-70 [facility] Work Phone: Potassium [Moles/Vol] 4.3 mmol/L 3.5-5.1 [facility] Work Phone: Sodium [Moles/Vol] 139 mmol/L 136-145 [facility] Work Phone: WBC (Bld) [#/Vol] 4.5 10*3/uL 4.4-11.0 [facility] Work Phone: Blood erythrocytes count (nu mber/volume)on 03-17-2022 RBC (Bld) [#/Vol] 3.52 10*6/uL 4.2-5.4 [facility] Work Phone: Blood hemoglobin measurement (mass/volume)on 03-17-2022 Hemoglobin (Bld) [Mass/Vol] 11.5 g/dL 12.0-15.0 [facility] Work Phone: [phone] Blood lymphocytes/100 leukoc yteson 03-17-2022 Lymphocytes/100 WBC (Bld) 40.3 % 19-41 [facility] Work Phone: Blood monocytes/100 leukocyt eson 03-17-2022 Monocytes/100 WBC (Bld) 8.0 % 0-10 [facility] Work Phone: Blood platelet mean volumeon 03-17-2022 Platelet mean volume (Bld) [Entitic vol] 10.3 fL 6.2-12.0 [facility] Work Phone: Determination of erythrocyte mean corpuscular volume (MCV)on 03-17-2022 MCV (RBC) [Entitic vol] 98.3 fL 81-99 [facility] Work Phone: Hematocrit Auto (Bld) [Volum e fraction]on 03-17-2022 Hematocrit (Bld) [Volume fraction] 34.6 % 37-47 [facility] Work Phone: Laboratory - Chemistry and C hemistry - challengeon 03-17-2022 CO2 [Moles/Vol] 29.0 mmol/L 21.0-32.0 [facility] Work Phone: Free T4 [Mass/Vol] 1.27 ng/dL 0.76-1.46 [facility] Work Phone: Urea nitrogen/Creatinine [Mass ratio] 25.6 mg/mg 10-20 [facility] Work Phone: Laboratory - Hematology and Cell countson 03-17-2022 Erythrocyte distribution width (RBC) [Entitic vol] 46.8 fL 35.1-43.9 [facility] Work Phone: Erythrocyte distribution width (RBC) [Ratio] 12.9 % 11.6-14.6 [facility] Work Phone: Immature granulocytes/100 WBC (Bld) 0.200 % 0.0-0.9 [facility] Work Phone: Comment on above: IG% - Immature Granu locytes (promyelocytes, myelocytes and metamyelocytes) > 1% indicates that a LEFT SHIFT is Present. MCH (RBC) [Entitic mass] 32.7 pg 27.0-32.0 [facility] Work Phone: Nucleated RBC/100 WBC (Bld) [Ratio] 0 % 0-5 [facility] Work Phone: MCHC Auto (RBC) [Mass/Vol]on 03-17-2022 MCHC (RBC) [Mass/Vol] 33.2 g/dL 32-36 [facility] Work Phone: No Panel Informationon 03-17 Estimated GFR (MDRD) Amer 77 mL/min >60 [facility] Work Phone: Comment on above: GFR Calc Estimated GFR (MDRD) Non-Af Amer 63 mL/min >60 [facility] Work Phone: Comment on above: Non- GFR Calc Thyroid Stimulating Hormone (TSH) 2.16 uIU/mL 0.358-3.74 [facility] Work Phone: Platelets bldon 03-17-2022 Platelets (Bld) [#/Vol] 227 10*3/uL 150-450 [facility] Work Phone: Serum or plasma calcium dimple urement (mass/volume)on 03-17-2022 Calcium [Mass/Vol] 9.3 mg/dL 8.5-10.1 [facility] Work Phone: Serum or plasma creatinine m easurement (mass/volume)on 03-17-2022 Creatinine [Mass/Vol] 0.90 mg/dL 0.55-1.02 [facility] Work Phone: Comment on above: The validity of the calculated GFR & GFRAA in patients over 70 years has not been determined. Clinical correlation is essential. Serum or plasma urea nitroge n measurement (mass/volume)on 03-17-2022 Urea nitrogen [Mass/Vol] 23 mg/dL 7-18 [facility] Work Phone: Thin prep Papanicolaou smear with manual screeningon 03-17-2022 Thin prep Papanicolaou smear with manual screening 7 5-15 [facility] Work Phone: Basophil percentageon 2021 Bilirubin [Mass/Vol] 0.30 mg/dL 0.20-1.[address] [facility] Work Phone: Comment on above: For patients on eltr ombopag therapy, use of Dimension [place] TBIL is not recommended. Cholesterol [Mass/Vol] 158 mg/dL <200 [facility] Work Phone: Comment on above: <200 mg/dL Desirable 200-240 mg/dL Borderline >240 mg/dL High Risk Protein [Mass/Vol] 6.6 g/dL 6.4-8.2 [facility] Work Phone: Triglyceride [Mass/Vol] 79 mg/dL <199 [facility] Work Phone: Comment on above: The drugs N-Acetylcy steine and Metamizole may falsely depress this assay.Serum Triglycerides Reference Interval Normal <150 mg/dL Borderline high 150 - 199 mg/dL High 200 - 499 mg/dL Very High > or = 500 mg/dL Direct bilirubinon 2 Bilirubin.direct [Mass/Vol] 0.11 mg/dL 0.00-0.30 [facility] Work Phone: Laboratory - Chemistry and C hemistry - challengeon 10-22-2021 ALP [Catalytic activity/Vol] 79 U/L 45-117 [facility] Work Phone: ALT [Catalytic activity/Vol] 18 U/L 13-56 [facility] Work Phone: Globulin (S) [Mass/Vol] 2.9 g/dL 2.2-4.2 [facility] Work Phone: Serum or plasma albumin dimple urement (mass/volume)on 10-22-2021 Albumin [Mass/Vol] 3.7 g/dL 3.2-5.0 [facility] Work Phone: Serum or plasma cholesterol in HDL measurement (mass/volume)on 10-22-2021 Cholesterol in HDL [Mass/Vol] 51 mg/dL >40 [facility] Work Phone: Comment on above: The drugs N-Acetylcy steine and Metamizole may falsely depress this assay. Reference Range HDL <40 mg/dL Low HDL Cholesterol HDL >or= 60 mg/dL High HDL Cholesterol Serum or plasma cholesterol in VLDL measurement (mass/volume)on 10-22-2021 Cholesterol in VLDL [Mass/Vol] 16 mg/dL 5-40 [facility] Work Phone: Serum or plasma low density lipoprotein (LDL) cholesterol measurement (mass/volume)on 10-22-2021 Cholesterol in LDL [Mass/Vol] 91 mg/dL 0-130 [facility] Work Phone: Thin prep Papanicolaou smear with manual screeningon 10-22-2021 Thin prep Papanicolaou smear with manual screening 18 U/L 15-37 [facility] Work Phone: Stool gastrointestinal hemog lobin detection by immunologic method Lower GI hemoglobin IA Ql (Stl) [facility] Work Phone: Vital Signs Date Time Vital Sign Value Performing Clinician Faci isiahy 07-03-2023 09:15-0500 Body height 165.[address] Luis M Lama Work Phone: [facility] 07-03-2023 09:15-0500 Body mass index (BMI) [Ratio] 26.1 kg/m2 Dr. Luis M Lama Work Phone: [facility] 07-03-2023 09:15-0500 Body weight 71.[address] Luis M Lama Work Phone: [facility] 07-03-2023 09:15-0500 Diastolic blood pressure 55 mm[Hg] Dr. Luis M Lama Work Phone: [facility] 07-03-2023 09:15-0500 Heart rate 36 /min Dr. Luis M Lama Work Phone: [facility] 07-03-2023 09:15-0500 Respiratory rate 16 /min Dr. Luis M Lama Work Phone: [facility] 07-03-2023 09:15-0500 Systolic blood pressure 121 mm[Hg] Dr. Luis M Lama Work Phone: [facility] 05-31-2023 10:19-0500 Body height 165.[address] Luis M Lama Work Phone: [facility] 05-31-2023 10:19-0500 Body mass index (BMI) [Ratio] 27.6 kg/m2 Dr. Luis M Lama Work Phone: [facility] 05-31-2023 10:19-0500 Body weight 75.[address] Luis M Lama Work Phone: [facility] 05-31-2023 10:19-0500 Diastolic blood pressure 64 mm[Hg] Dr. Luis M Lama Work Phone: [facility] 05-31-2023 10:19-0500 Heart rate 44 /min Dr. Luis M Lama Work Phone: [facility] 05-31-2023 10:19-0500 Respiratory rate 18 /min Dr. Luis M Lama Work Phone: [facility] 05-31-2023 10:19-0500 Systolic blood pressure 126 mm[Hg] Dr. Luis M Lama Work Phone: [facility] 03-24-2023 14:27-0500 Body height 165.[address] Luis M Lama Work Phone: [facility] 03-24-2023 14:27-0500 Body mass index (BMI) [Ratio] 25.7 kg/m2 Dr. Luis M Lama Work Phone: [facility] 03-24-2023 14:27-0500 Body temperature 98 [degF] Dr. Luis M Lama Work Phone: [facility] 03-24-2023 14:27-0500 Body weight 70.[address] Luis M Lama Work Phone: [facility] 03-24-2023 14:27-0500 Diastolic blood pressure 77 mm[Hg] Dr. Luis M Lama Work Phone: [facility] 03-24-2023 14:27-0500 Heart rate 50 /min Dr. Luis M Lama Work Phone: [facility] 03-24-2023 14:27-0500 Respiratory rate 18 /min Dr. Luis M Lama Work Phone: [facility] 03-24-2023 14:27-0500 SaO2% (BldA) [Mass fraction] 99 % Dr. Luis M Lama Work Phone: [facility] 03-24-2023 14:27-0500 Systolic blood pressure 147 mm[Hg] Dr. Luis M Lama Work Phone: [facility] 12-23-2022 11:38-0400 Body temperature 98.5 [degF] Dr. Luis M Lama Work Phone: [facility] 12-23-2022 11:38-0400 Diastolic blood pressure 80 mm[Hg] Dr. Luis M Lama Work Phone: [facility] 12-23-2022 11:38-0400 Heart rate 50 /min Dr. Luis M Lama Work Phone: [facility] 12-23-2022 11:38-0400 Respiratory rate 12 /min Dr. Luis M Lama Work Phone: [facility] 12-23-2022 11:38-0400 SaO2% (BldA) [Mass fraction] 98 % Dr. Luis M Lama Work Phone: [facility] 12-23-2022 11:38-0400 Systolic blood pressure 160 mm[Hg] Dr. Luis M Lama Work Phone: [facility] 10-31-2022 08:53-0400 Body height 166.[address] Luis M Lama Work Phone: [facility] 10-31-2022 08:53-0400 Body mass index (BMI) [Ratio] 27.8 kg/m2 Dr. Luis M Lama Work Phone: [facility] 10-31-2022 08:53-0400 Body weight 77.[address] Luis M Lama Work Phone: [facility] 10-31-2022 08:53-0400 Diastolic blood pressure 68 mm[Hg] Dr. Luis M Lama Work Phone: [facility] 10-31-2022 08:53-0400 Heart rate 52 /min Dr. Luis M Lama Work Phone: [facility] 10-31-2022 08:53-0400 Respiratory rate 18 /min Dr. Luis M Lama Work Phone: [facility] 10-31-2022 08:53-0400 SaO2% (BldA) [Mass fraction] 94 % Dr. Luis M Lama Work Phone: [facility] 10-31-2022 08:53-0400 Systolic blood pressure 121 mm[Hg] Dr. Luis M Lama Work Phone: [facility] 10-22-2022 15:59-0400 Diastolic blood pressure 95 mm[Hg] Dr. Luis M Lama Work Phone: [facility] 10-22-2022 15:59-0400 Heart rate 75 /min Dr. Luis M Lama Work Phone: [facility] 10-22-2022 15:59-0400 Respiratory rate 15 /min Dr. Luis M Lama Work Phone: [facility] 10-22-2022 15:59-0400 SaO2% (BldA) [Mass fraction] 98 % Dr. Luis M Lama Work Phone: [facility] 10-22-2022 15:59-0400 Systolic blood pressure 162 mm[Hg] Dr. Luis M Lama Work Phone: [facility] 10-22-2022 13:41-0400 Body height 166.[address] Luis M Lama Work Phone: [facility] 10-22-2022 13:41-0400 Body mass index (BMI) [Ratio] 27.6 kg/m2 Dr. Luis M Lama Work Phone: [facility] 10-22-2022 13:41-0400 Body temperature 96.9 [degF] Dr. Luis M Lama Work Phone: [facility] 10-22-2022 13:41-0400 Body weight 76.[address] Luis M Lama Work Phone: [facility] 08-03-2022 15:45-0400 Body height 166.[address] Luis M Lama Work Phone: [facility] 08-03-2022 15:43-0400 Body mass index (BMI) [Ratio] 29.2 kg/m2 Dr. Luis M Lama Work Phone: [facility] 08-03-2022 15:43-0400 Body weight 79.[address] Luis M Lama Work Phone: [facility] 08-03-2022 15:43-0400 Diastolic blood pressure 83 mm[Hg] Dr. Luis M Lama Work Phone: [facility] 08-03-2022 15:43-0400 Heart rate 55 /min Dr. Luis M Lama Work Phone: [facility] 08-03-2022 15:43-0400 Respiratory rate 18 /min Dr. Luis M Lama Work Phone: [facility] 08-03-2022 15:43-0400 SaO2% (BldA) [Mass fraction] 99 % Dr. Luis M Lama Work Phone: [facility] 08-03-2022 15:43-0400 Systolic blood pressure 152 mm[Hg] Dr. Luis M Lama Work Phone: [facility] 06-27-2022 09:47-0500 Body height 166.[address] Luis M Lama Work Phone: [facility] 06-27-2022 09:47-0500 Body mass index (BMI) [Ratio] 27.1 kg/m2 Dr. Luis M Lama Work Phone: [facility] 06-27-2022 09:47-0500 Body temperature 98 [degF] Dr. Luis M Lama Work Phone: [facility] 06-27-2022 09:47-0500 Body weight 75.[address] Luis M Lama Work Phone: [facility] 06-27-2022 09:47-0500 Diastolic blood pressure 70 mm[Hg] Dr. Luis M Lama Work Phone: [facility] 06-27-2022 09:47-0500 Heart rate 52 /min Dr. Luis M Lama Work Phone: [facility] 06-27-2022 09:47-0500 Respiratory rate 18 /min Dr. Luis M Lama Work Phone: [facility] 06-27-2022 09:47-0500 SaO2% (BldA) [Mass fraction] 96 % Dr. Luis M Lama Work Phone: [facility] 06-27-2022 09:47-0500 Systolic blood pressure 126 mm[Hg] Dr. Luis M Lama Work Phone: [facility] 04-13-2022 10:49-0500 Body height 166.[address] Luis M Lama Work Phone: [facility] Work Phone: 04-13-2022 10:46-0500 Body mass index (BMI) [Ratio] 28.8 kg/m2 Dr. Luis M Lama Work Phone: [facility] 04-13-2022 10:46-0500 Body weight 78.[address] Luis M Lama Work Phone: [facility] 04-13-2022 10:46-0500 Diastolic blood pressure 70 mm[Hg] Dr. Luis M Lama Work Phone: [facility] 04-13-2022 10:46-0500 Heart rate 58 /min Dr. Luis M Lama Work Phone: [facility] 04-13-2022 10:46-0500 Respiratory rate 18 /min Dr. Luis M Lama Work Phone: [facility] 04-13-2022 10:46-0500 SaO2% (BldA) [Mass fraction] 100 % Dr. Luis M Lama Work Phone: [facility] 04-13-2022 10:46-0500 Systolic blood pressure 142 mm[Hg] Dr. Luis M Lama Work Phone: [facility] 04-04-2022 13:14-0500 Body mass index (BMI) [Ratio] 27.7 kg/m2 Dr. Luis M Lama Work Phone: [facility] 04-04-2022 13:14-0500 Body temperature 97.4 [degF] Dr. Luis M Lama Work Phone: [facility] 04-04-2022 13:14-0500 Body weight 76.[address] Luis M Lama Work Phone: [facility] 04-04-2022 13:14-0500 Diastolic blood pressure 66 mm[Hg] Dr. Luis M Lama Work Phone: [facility] 04-04-2022 13:14-0500 Heart rate 60 /min Dr. Luis M Lama Work Phone: [facility] 04-04-2022 13:14-0500 Respiratory rate 18 /min Dr. Luis M Lama Work Phone: [facility] 04-04-2022 13:14-0500 SaO2% (BldA) [Mass fraction] 98 % Dr. Luis M Lama Work Phone: [facility] 04-04-2022 13:14-0500 Systolic blood pressure 147 mm[Hg] Dr. Luis M Lama Work Phone: [facility] 10-21-2021 10:07-0400 Body height 165.[address] Luis M Lama Work Phone: [facility] Work Phone: 10-21-2021 10:07-0400 Body mass index (BMI) [Ratio] 29.5 kg/m2 Dr. Luis M Lama Work Phone: [facility] Work Phone: 10-21-2021 10:07-0400 Body weight 80.[address] Luis M Lama Work Phone: [facility] Work Phone: 10-21-2021 10:07-0400 Diastolic blood pressure 64 mm[Hg] Dr. Luis M Lama Work Phone: [facility] Work Phone: 10-21-2021 10:07-0400 Heart rate 56 /min Dr. Luis M Lama Work Phone: [facility] Work Phone: 10-21-2021 10:07-0400 Respiratory rate 16 /min Dr. Luis M Lama Work Phone: [facility] Work Phone: 10-21-2021 10:07-0400 Systolic blood pressure 130 mm[Hg] Dr. Luis M Lama Work Phone: [facility] Work Phone: Encounters Encounter Date Encounter Type Care Provider Facility Start: 10-23-2024 ambulatory Luis M Lama Facility: [facility] Start: 10-19-2024 End: 10-19-2024 Emergency department patient visit Luis M Lama Facility:[facility] Start: 10-16-2024 ambulatory Luis M Kelby [facility]: [facility] Start: 10-09-2024 ambulatory Luis M Kelby [facility]: [facility] Start: 10-02-2024 ambulatory Luis M Kelby [facility]: [facility] Start: 09-25-2024 ambulatory Luis M Kelby Facility: [facility] Start: 09-18-2024 ambulatory Luis M Kelby Facility: [facility] Start: 09-11-2024 ambulatory Luis M Kelby Facility: [facility] Start: 09-06-2024 End: 09-06-2024 ambulatory Luis M Kelby Facility:[facility] Start: 09-04-2024 ambulatory Luis M Kelby Facility: [facility] Start: 08-28-2024 ambulatory Luis M Kelby Facility: [facility] Start: 08-21-2024 ambulatory Luis M Kelby Facility: [facility] Start: 08-14-2024 ambulatory Luis M Kelby Facility: [facility] Start: 08-07-2024 ambulatory Luis M Kelby Facility: [facility] Start: 07-31-2024 ambulatory Luis M Kelby Facility: [facility] Start: 07-24-2024 ambulatory Luis M Kelby [facility]: [facility] Start: 07-17-2024 ambulatory Luis M Kelby [facility]: [facility] Start: 07-11-2024 End: 07-11-2024 ambulatory Luis M Kelby Facility:[facility] Start: 07-04-2024 End: 07-04-2024 ambulatory Luis M Kelby Facility:[facility] Start: 06-17-2024 ambulatory Luis M Kelby [facility]: [facility] Start: 05-20-2024 End: 05-20-2024 ambulatory Luis M Kelby Facility:[facility] Start: 05-08-2024 ambulatory Luis M Kelby Facility: [facility] Start: 04-23-2024 End: 04-23-2024 ambulatory Luis M Kelby Facility:[facility] Start: 03-27-2024 End: 04-06-2024 ambulatory Luis M Kelby Facility:[facility] Start: 03-22-2024 End: 03-22-2024 ambulatory Luis M Kelby Facility:[facility] Start: 03-05-2024 End: 03-05-2024 ambulatory Gurdeep Martinez Facility:[facility] Start: 02-21-2024 End: 02-21-2024 ambulatory Luis M Kelby Facility:[facility] Start: 01-10-2024 End: 01-10-2024 ambulatory Gurdeep Martinez Facility:[facility] Start: 01-03-2024 ambulatory Gurdeep Martinez Facility :[facility] Start: 01-03-2024 End: 01-05-2024 Evaluation and management of inpatient Luis M Lama Facility:[facility] Start: 01-03-2024 End: 01-03-2024 ambulatory Luis M Lama Facility:[facility] Start: 12-25-2023 End: 12-25-2023 ambulatory Luis M Lama Facility:[facility] Start: 12-12-2023 End: 12-13-2023 ambulatory Luis M Lama Facility:[facility] Start: 11-27-2023 End: [facility] Start: 09-04-2023 End: 09-05-[address] Luis M Lama Work Phone: [facility] Work Phone: Start: 09-04-2023 End: 09-05-[address] Luis M Lama Work Phone: [facility] Work Phone: Start: 08-16-2023 End: 08-16-[address] Luis M Lama Work Phone: [facility] Work Phone: Start: 08-16-2023 End: 08-16-[address] Luis M Lama Work Phone: [facility] Work Phone: Start: 07-31-2023 End: 08-06-[address] Luis M Lama Work Phone: [facility] Work Phone: Start: 07-31-2023 End: 08-06-[address] Luis M Lama Work Phone: [facility] Work Phone: Start: 07-03-2023 End: 07-03-[address] Luis M Lama Work Phone: [facility] Work Phone: Start: 07-03-2023 End: 07-06-[address] Luis M Lama Work Phone: [facility] Work Phone: Start: 07-03-2023 End: 07-06-[address] [facility] Start: 06-28-2023 Non-patient / Non-visit Dr. Julianna Lama Work Phone: [facility] Start: 06-28-2023 End: 06-28-[address] [facility] M [facility] Work [facility]: Start: 06-07-2023 Non-patient / Non-visit Dr. Julianna Lama Work Phone: [facility] Work Phone: Start: 06-07-2023 End: 06-07-[address] Luis M [facility] Work Phone: Start: 05-31-2023 End: 05-31-[address] Luis M Lama Work Phone: [facility] Work Phone: Start: 05-31-2023 End: 05-31-[address] [facility] Work Phone: Start: 05-31-2023 End: 05-31-[address] Luis M Lama Work Phone: [facility] Work Phone: Start: 05-04-2023 End: 05-04-[address] Luis M Lama Work Phone: [facility] Work Phone: Start: 05-04-2023 End: 05-04-[address] Luis M Lama Work Phone: [facility] Work Phone: Start: 04-24-2023 End: 05-07-[address] Luis M Lama Work Phone: [facility] Work Phone: Start: 03-31-2023 Non-patient / Non-visit Dr. Julianna Lama Work Phone: [facility] Start: 03-31-[address] Luis M phillips [facility] Work [facility]: Start: 03-27-2023 End: 04-06-[address] Luis M Lama Work Phone: [facility] Work Phone: Start: 03-27-2023 End: 04-06-[address] Luis M Lama Work Phone: [facility] Work Phone: Start: 03-24-2023 End: 03-24-[address] Luis M Lama Work Phone: [facility] Work Phone: Start: 02-27-2023 End: 02-27-[address] Luis M Lama Work Phone: [facility] Work Phone: Start: 02-27-2023 End: 02-27-[address] Luis M Lama Work Phone: [facility] [place] Work Phone: Start: 01-30-2023 End: 01-30-[address] Luis M Lama Work Phone: [facility] Work Phone: Start: 01-02-2023 End: 01-02-[address] Luis M Lama Work Phone: [facility] [place] Work Phone: Start: 12-29-2022 End: 12-29-[address] Luis M Lama Work Phone: [facility] Work Phone: Start: 12-23-2022 End: 12-23-[address] Luis M Lama Work Phone: [facility] Work Phone: Start: 12-05-2022 End: 12-05-[address] Luis M Lama Work Phone: [facility] Work Phone: Start: 12-05-2022 End: 12-05-[address] [facility] Start: 11-21-2022 End: 11-21-[address] Luis M Lama Work Phone: [facility] Work Phone: Start: 11-21-2022 End: 11-21-[address] [facility] Start: 11-14-2022 End: 11-14-[address] Luis M Lama Work Phone: [facility] Work Phone: Start: 11-14-2022 End: 11-14-[address] Luis M [facility] Start: 11-09-2022 End: 11-09-[address] Luis M Lama Work Phone: [facility] Work Phone: Start: 10-31-2022 End: 10-31-[address] Luis M Lama Work Phone: [facility] Work Phone: Start: 10-22-2022 End: 10-22-2022 Emergency department patient visit Dr. Luis M [facility] Start: 10-10-2022 End: 10-10-[address] Luis M Lama Work Phone: [facility] Start: 09-12-2022 End: 09-12-[address] Luis M Lama Work Phone: [facility] Work Phone: Start: 09-12-2022 End: 09-12-[address] Luis M Lama Work Phone: [facility] Start: 08-22-2022 End: 09-04-[address] Luis M Lama Work Phone: [facility] Start: 08-08-[address] Luis M Lama Work Phone: [facility] Start: 08-03-2022 End: 08-03-[address] Luis M Lama Work Phone: [facility] Start: 08-01-2022 End: 08-01-[address] Luis M Lama Work Phone: [facility] Work Phone: Start: 08-01-2022 End: 08-01-[address] Luis M Lama Work Phone: [facility] Start: 07-25-2022 End: 07-25-[address] Luis M Lama Work Phone: [facility] Work Phone: Start: 07-25-2022 End: 07-25-[address] [facility] Start: 07-21-2022 End: 07-21-[address] Luis M Lama Work Phone: [facility] Work Phone: Start: 07-21-2022 End: 07-21-[address] Luis M Lama Work Phone: [facility] Start: 07-18-2022 End: 07-18-[address] Luis M Lama Work Phone: [facility] Work Phone: Start: 07-18-2022 End: 07-18-[address] Luis M Lama Work Phone: [facility] Start: 06-27-2022 End: 06-27-[address] Luis M Lama Work Phone: [facility] Start: 04-13-2022 End: 04-13-[address] Luis M Lama Work Phone: [facility] Start: 04-11-2022 End: 04-11-[address] Luis M Lama Work Phone: [facility] Work Phone: Start: 04-11-2022 End: 04-11-[address] Luis M Lama Work Phone: [facility] Start: 04-05-2022 End: 04-05-[address] Luis M Lama Work Phone: [facility] Start: 04-04-2022 End: 04-04-[address] Luis M Lama Work Phone: [facility] Start: 03-17-2022 End: 03-17-2022 ambulatory [facility] Work Phone: Start: 03-17-2022 End: 03-17-2022 Patient encounter procedure [facility] Start: 10-22-2021 End: 10-22-[address] Luis M Lama Work Phone: [facility] Start: 10-21-2021 End: 10-21-[address] Luis M Lama Work Phone: [facility] Start: 07-23-[address] Luis M phillips Work Phone: [facility] Procedures Date Procedure Procedure Detail Performing Clinician Start: 12-29-[address] Luis M Lama Work Phone: Start: 10-22-2022 Plain chest X-ray Dr. Ji Lama Work Phone: Start: 10-22-2022 CT of head [...] Activity Detail Author Patient Education AFib Dc [facility] Work Phone: Patient referral [facility] Work Phone: Immunizations Immunization Date Immunization Notes Care Provider Fa cili 06-25-2020 Covid (Moderna) Dr. Luis M woo Work Phone: [facility] 05-28-2020 Covid (Moderna) Dr. Luis M woo Work Phone: [facility] Payers Date Payer Category Payer Unknown [id number] 2023 Self-pay [id number] 2015 Private Health Insurance [id number] 2002 Medicare [id number] Unknown [id number] 2.16.8 40.1.246431.3.579.2.462 Unknown [id number] 2.16.8 40.1.050100.3.579.2.462 Unknown [id number] 2.16.8 40.1.394669.3.579.2.462 Unknown [id number] 2.16.8 40.1.327749.3.579.2.462 Unknown [id number] 2.16.8 40.1.112920.3.579.2.462 Unknown [id number] 2.16.8 40.1.999648.3.579.2.462 Unknown [id number] 2.16.8 40.1.438827.3.579.2.462 Unknown [id number] 2.16.8 40.1.626579.3.579.2.462 Unknown [id number] 2.16.8 40.1.028910.3.579.2.462 Unknown [id number] 2.16.8 40.1.079308.3.579.2.462 Unknown [id number] 2.16.8 40.1.842553.3.579.2.462 Unknown [id number] 2.16.8 40.1.341526.3.579.2.462 Unknown [id number] 2.16.8 40.1.898972.3.579.2.462 Unknown [id number] 2.16.8 40.1.289969.3.579.2.462 Unknown [id number] 2.16.8 40.1.489456.3.579.2.462 Unknown [id number] 2.16.8 40.1.264076.3.579.2.462 Unknown [id number] 2.16.8 40.1.595709.3.579.2.462 Unknown [id number] 2.16.8 40.1.810735.3.579.2.462 Unknown [id number] 2.16.8 40.1.256901.3.579.2.462 Unknown [id number] 2.16.8 40.1.839727.3.579.2.462 Unknown [id number] 2.16.8 40.1.283841.3.579.2.462 Unknown [id number] 2.16.8 40.1.122155.3.579.2.462 Unknown [id number] 2.16.8 40.1.762900.3.579.2.462 Unknown [id number] 2.16.8 40.1.570573.3.579.2.462 Unknown [id number] 2.16.8 40.1.523776.3.579.2.462 Unknown [id number] 2.16.8 40.1.187016.3.579.2.462 Unknown [id number] 2.16.8 40.1.998668.3.579.2.462 Unknown [id number] 2.16.8 40.1.902393.3.579.2.462 Unknown [id number] 2.16.8 40.1.735068.3.579.2.462 Unknown [id number] 2.16.8 40.1.693536.3.579.2.462 Unknown [id number] 2.16.8 40.1.220546.3.579.2.462 Unknown [id number] 2.16.8 40.1.649478.3.579.2.462 Unknown [id number] 2.16.8 40.1.808458.3.579.2.462 Unknown [id number] 2.16.8 40.1.516516.3.579.2.462 Unknown [id number] 2.16.8 40.1.249311.3.579.2.462 Unknown [id number] 2.16.8 40.1.790322.3.579.2.462 Unknown [id number] 2.16.8 40.1.401282.3.579.2.462 Unknown [id number] 2.16.8 40.1.131342.3.579.2.462 Unknown [id number] 2.16.8 40.1.592988.3.579.2.462 Unknown [id number] 2.16.8 40.1.373582.3.579.2.462 Unknown [id number] 2.16.8 40.1.017031.3.579.2.462 Social History Date Type Detail Facility Start: 10-21-2021 End: 07-03-2023 Tobacco smoking status NHIS Unknown if ever smoked [facility] Start: 04-17-2018 Non-smoker [facility] Start: 1935 Sex Assigned At Female [facility] Mental Status Date Assessment Result Facility 10-22-2022 Cognitive function Awake;Alert;A ppropriate;Fol lows Commands [facility] Work Phone: Clinical Notes 08-06-2017 to 01-05-2024 Note Date & Type Note Facility 01-05-2024 Note [facility] Medical Records Department [address] [place] [address] Discharge Summary 01/05/24 1238 MR#: [id number] Acct: [id number] Name: ELIZABETH CHEATHAM Rep #: [id number] : 1935 88 From: Luis M Cortés DO PCP: Dr. Luis M Lama DO Status:DIS IN [id number] Providers Date of Admission: 01/03/24 Date of [...] fibrillation Plan 1. Paroxysmal A-fib intolerant of xbfk-nenuxsrq-zbbvnep remains on Tikosyn 250 mg twice a [...] mg-vit E 90 mg-zinc 40 mg-copper 1 hy-byextw-ktscav capsule (PreserVision AREDS-2) 1 tab PO BID [...] Plan Admission Admi (more content not included)... [facility] 08-06-2017 Evaluation note Diagnosis Onset Date Family history of colon canc er in mother acute Personal history of colonic polyps acute On amiodarone therapy acute History of radiofrequency ab lation procedure for cardiac arrhythmia August, chronic care home current use of 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 chronic Paroxysmal A-fib [facility] Work Phone: 1(373) 693-880304-01-2018 Evaluation note* Diagnosis Onset Date Resolution Status Family history of colon cancer in mother acute Personal history of colonic polyps acute On amiodarone therapy acute History of radiofrequency ab lation procedure for cardiac arrhythmia August, 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 Paroxysmal A-fib chronic Bradycardia acute Essential hypertension chron ic care home current use of 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 chronic Paroxysmal A-fib [facility] Work Phone: 1(574) 769-159104-01-2018 Evaluation note* Diagnosis Onset Date Resolution Status On amiodarone therapy acute History of radiofrequency ab lation procedure for cardiac arrhythmia August, 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 Paroxysmal A-fib chronic Bradycardia acute Essential hypertension chron ic care home current use of 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 chronic Paroxysmal A-fib [facility] Work Phone: Evaluation note* Diagnosis Onset Date Resolution Status Fatigue acute Essential hypertension chron ic Paroxysmal A-fib chronic Pure hypercholesterolemia ch ronic [facility] Work Phone: Evaluation noteNo assessment information available [facility] Work Phone: Evaluation note* Diagnosis Onset Date Resolution Status Family history of colon cancer in mother acute Personal history of colonic polyps acute Essential hypertension chron ic Paroxysmal A-fib chronic Pure hypercholesterolemia [facility] Work Phone: Evaluation note* Diagnosis Onset Date Resolution Status Family history of colon cancer in mother acute Personal history of colonic polyps acute Essential hypertension chron ic Paroxysmal A-fib chronic Pure hypercholesterolemia ch [facility] Acute bronchitis acute [facility] Work Phone: Evaluation note* Diagnosis Onset Date Resolution Status Essential hypertension chron ic Paroxysmal A-fib chronic Pure hypercholesterolemia ch ronic Acute bronchitis acute Essential hypertension chron ic Paroxysmal A-fib chronic Pure hypercholesterolemia [facility] Work Phone: Evaluation note* Diagnosis Onset Date Resolution Status Acute bronchitis acute Essential hypertension chron ic Paroxysmal A-fib chronic Pure hypercholesterolemia [facility] Work Phone: Evaluation note* Diagnosis Onset Date Resolution Status Essential hypertension chron ic Paroxysmal A-fib chronic Pure hypercholesterolemia ch ron Essential hypertension chron ic Paroxysmal A-fib chronic Pure hypercholesterolemia [facility] Work Phone: Evaluation note* Diagnosis Onset Date Resolution Status Essential hypertension chron ic Paroxysmal A-fib chronic Pure hypercholesterolemia [facility] Work Phone: Evaluation note* Diagnosis Onset Date Resolution Status Dysfunction of right eustachian tube acute [facility] Work Phone: Evaluation note* Diagnosis Onset Date Resolution Status Dysfunction of right eustachian tube acute Family history of colon cancer in mother acute Personal history of colonic polyps acute [facility] Work Phone: Evaluation note* Diagnosis Onset Date Resolution Status Family history of colon cancer in mother acute Personal history of colonic polyps acute [facility] Work Phone: Hospital Discharge instructions Additional Instructions [...] Please follow with your primary care physician, legal analyst for further outpatient evaluation and management of your blood pressure medication.[facility] Work Phone: Chief Complaint and Reason for Visit 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 for Visit [...] DRAW LABWORK HOME DRAW A FIB, HOLTER 316 INR- Reason for Visit Essential hypertensi on Paroxysmal A-fib Pure hypercholesterolemia Acute bronchitis Essential hypertension Paroxysmal A-fib Pure hypercholesterolemia Chief Complaint POSSIBLE STREP THROA T HOMEDRAW LABWORK Paroxysmal atrial fibrillation HOME DRAW LABWORK HOME DRAW A FIB, HOLTER 316 INR- LABWORK Reason for Visit Acute bronchitis Essential hypertension Paroxysmal A-fib Pure hypercholesterolemia Chief Complaint POSSIBLE STREP THROA T HOMEDRAW LABWORK Paroxysmal atrial fibrillation HOME DRAW LABWORK HOME DRAW A FIB, HOLTER 316 INR- LABWORK HOME DRAW LAB WORK AFIB Reason for Visit Acute bronchitis Essential hypertension Paroxysmal A-fib Pure hypercholesterolemia Chief Complaint HOME DRAW LABWORK HOME DRAW A FIB, HOLTER 316 INR- LABWORK HOME DRAW LAB WORK AFIB 6 M FU EKG PER MMM STARTED AMIO HOMEDRAW LABWORK Reason for Visit Essential hypertensi on Paroxysmal A-fib Pure hypercholesterolemia Essential hypertension Paroxysmal A-fib Pure hypercholesterolemia Chief Complaint HOME DRAW A FIB, HOLTER 316 INR- LABWORK HOME DRAW LAB WORK AFIB [...] of radiofrequency ablation procedure for cardiac arrhythmia care home current use of 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 Paroxysmal A-fib Chief [...] of radiofrequency ablation procedure for cardiac arrhythmia 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 Paroxysmal A-fib Bradycardia Essential hypertension 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 Paroxysmal A-fib Chief Complaint INR- ADD EORDER AND ADDT ORDER 4 m fu PREV PFM PT INR- ADD EORDER AND ADDT ORDER AFIB Atrial fibrillation AFIB s/o INR 1 M FU s/o INR ADD ORDER FROM DR LAMA 07/31/23 Reason for Visit On amiodarone therap y History of radiofrequency ablation procedure for cardiac arrhythmia 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 Paroxysmal A-fib Bradycardia Essential hypertension 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 Paroxysmal A-fib Chief Complaint 4 m fu PREV PFM PT INR- ADD EORDER AND ADDT ORDER AFIB Atrial fibrillation AFIB s/o INR 1 M FU s/o INR ADD ORDER FROM DR LAMA 07/31/23 Reason for Visit On amiodarone therap y History of radiofrequency ablation procedure for cardiac arrhythmia care home current use of 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 Paroxysmal A-fib Bradycardia Essential hypertension care home current use of 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 Paroxysmal A-fib Chief Complaint 4 m fu PREV PFM PT INR- ADD EORDER AND ADDT ORDER AFIB Atrial fibrillation AFIB s/o INR 1 M FU s/o INR ADD ORDER FROM DR LAMA 07/31/23 s/o INR Reason for Visit On amiodarone therap y History of radiofrequency ablation procedure for cardiac arrhythmia 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 Paroxysmal A-fib Bradycardia Essential hypertension 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 Paroxysmal A-fib Family [...] Yes January 26, 2021 5:48am Power of Loss Prevention Lead Yes January 5:48am Advance Directive Response Recorded Date/ Time Living Will Yes January 26, 2021 4:48am Power of Loss Prevention Lead Yes January 4:48am Advance Directive Response Recorded Date/ Time Name of Medical Power of Loss Prevention Lead SIVA CHEATHAM October 22, 2022 2:15pm Living Will Yes October 22, 2022 2:15pm Power of Loss Prevention Lead Yes October 22 3 2:15pm Advance Directive Response Recorded Date/ Time Living Will Yes October 22, 2022 2:15pm Power of Loss Prevention Lead Yes October 22 3 2:15pm Advance Directive Response Recorded Date/ Time Living Will Yes October 22, 2022 1:15pm Power of Loss Prevention Lead Yes October 22 1:15pm Summary Purpose Additional Source Comments Goals [...] Care Provider, Referrin g Provider Active Shawna Plaza OCEAN LIFEGUARD SPECIALIST, OCEAN LIFEGUARD SPECIALIST-C Attending Provider Active Team Status: Active Member Role Status Dates Dr. Luis M Lama DO Primary Care Provider Active Shawna Plaza OCEAN LIFEGUARD SPECIALIST, OCEAN LIFEGUARD SPECIALIST-C Attending Provider, Referring P olive Active Team Status: Inactive Member Role Status Dates Dr. Luis M Kelby , DO Primary Care Provider Active Shawna Plaza OCEAN LIFEGUARD SPECIALIST, OCEAN LIFEGUARD SPECIALIST-C Attending Provider, Referring P rovider Active Team Status: Inactive Member Role Status Dates Dr. Luis M Lama DO Primary Care Provider Active Dr. Estevan Riley , DO Emergency Provider Active Team Status: Inactive Member Role Status Dates Dr. Luis M Lama DO Primary Care Provider Active Dr. Estevan Riley , DO Attending Provider, Emergency P rovider Active [...] Care Provider, Other Pr ovider Active Shawna Plaza OCEAN LIFEGUARD SPECIALIST, OCEAN LIFEGUARD SPECIALIST-C Attending Provider, Referring P rovider Active Team [...] Lama DO Primary Care Provider Active Shawna Plaza OCEAN LIFEGUARD SPECIALIST, OCEAN LIFEGUARD SPECIALIST-C Attending Provider, Referring P rovider Active Dr. [...] Lama DO Primary Care Provider Active Shawna Plaza OCEAN LIFEGUARD SPECIALIST, OCEAN LIFEGUARD SPECIALIST-C Attending Provider, Referring P rovider Active Dr. Gurdeep Martinez MD Other Provider Active Hung Keyes OCEAN LIFEGUARD SPECIALIST, OCEAN LIFEGUARD SPECIALIST-C Other Provider Active Team Status: Inactive Member Role Status Dates Dr. Luis M Lama DO Primary Care Provider, Other Pr ovider Active Shawna Plaza OCEAN LIFEGUARD SPECIALIST, OCEAN LIFEGUARD SPECIALIST-C Attending Provider, Referring P olive Active Dr. Gurdeep Martinez MD Other Provider Active Hung Keyes OCEAN LIFEGUARD SPECIALIST, OCEAN LIFEGUARD SPECIALIST-C Other Provider Active INFORMATION SOURCE (unrecogn ized section and content) DATE CREATED AUTHOR 10/24/2024 [facility] FOR RECORDS PERTAINING TO PATIENTS WHO ARE [...] BE BASED ON THE PRIMARY CLINICAL RECORDS. [employer] provides no warranty or guarantee of the accuracy or completeness of information in this document.
== END | disposition home or self-care (01) ==
LOC: LAB 12:11
PROVIDERS: PCP Family Medicine; Referring Provider Internal Medicine Cardiovascular Disease; Visit Provider Internal Medicine Cardiovascular Disease
DX: E03.9 Hypothyroidism, unspecified (principal); R53.83 Other fatigue
CPT/HCPCS: 36415; 84443

== ENCOUNTER → 2024-11-06 | Outpatient (CLI) | payer MEDICARE, OTHER, SELFPAY | END | disposition home or self-care (01) | LOC: PSN 08:14 | PROVIDERS: PCP Family Medicine; Referring Provider Internal Medicine Cardiovascular Disease; Visit Provider Internal Medicine Cardiovascular Disease | DX: I48.0 Paroxysmal atrial fibrillation (principal) | CPT/HCPCS: 93225; 93226 ==

== ENCOUNTER → 2024-11-14 | Outpatient (CLI) | payer MEDICARE, OTHER, SELFPAY ==
--- NOTE | 2024-11-14 14:12 | RAD_ITS ---
PROCEDURE: ABDOMEN SINGLE VIEW 11/14/2024 REASON FOR EXAM: ABD PAIN TECHNIQUE: ABDOMEN SINGLE VIEW COMPARISON: None FINDINGS: Bowel gas: Moderate constipation identified with fecal material distributed throughout the colon. No evidence of bowel obstruction. Calcifications: Questionable tiny bilateral renal confinements calcifications are seen likely tiny renal stone. Bones: No acute findings RAD/Abdomen Single View IMPRESSION: Possible bilateral tiny renal stones. Please correlate with ultrasounds as cli nically warranted. Constipation. Reading Location[facility]
== END | disposition home or self-care (01) ==
LOC: RAD 13:57
PROVIDERS: PCP Family Medicine; Referring Provider Family Medicine; Visit Provider Family Medicine
DX: R10.9 Unspecified abdominal pain (principal)
CPT/HCPCS: 74018

== ENCOUNTER 2025-04-13 07:14 | Emergency (ER) | payer MEDICARE, OTHER, SELFPAY ==
[2025-04-13 07:15] VITALS: BP 145/73; PULSE 69; RESP 18; TEMP 36.4; O2SAT 100
[2025-04-13 07:39] VITALS: BMI 25.3
--- NOTE | 2025-04-13 07:40 | RAD_ITS ---
PROCEDURE: CHEST 1 VIEW (PORTABLE) 04/13/2025 REASON FOR EXAM: WEAKNESS TECHNIQUE: Frontal view of the chest. COMPARISON: 10/19/2024 FINDINGS: LUNGS AND PLEURA: Minimal strand-like opacity in the left lung base. No pleural effusion or pneumothorax. HEART AND MEDIASTINUM: The cardiac silhouette is borderline enlarged. The mediastinal contour is normal. AORTA: Calcified thoracic aorta. BONES: No acute osseous abnormality. RAD/Chest 1 View (Portable) IMPRESSION: Strand-like left basilar opacity, likely atelectasis/scarring with infection no t excluded. Reading Location: [id number]
--- NOTE | 2025-04-13 07:40 | EKG12_ITS ---
Test Reason : GENERAL Blood Pressure : */* mmHG Vent. 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
--- NOTE | 2025-04-13 07:41 | EX.ED.DYSGE1 ---
HPI History of Present Illness Chief Complaint: General Illness Informant: patient and family Narrative Narrative: Patient is an 89-year-old female with a history of neuropathy presenting to the ED with generalized malaise, nausea, and weakness. Patient is accompanied by her daughter, who is supplementing history. - Reports feeling terrible all around for the past few days. - Experiences nausea without emesis; denies chest or abdominal pain. - Denies diarrhea, cough, dyspnea, or sore throat. - Denies dysuria, but reports maybe occasional burning with urination. - Denies headaches or earaches right now - Denies numbness or weakness in arms and legs; able to move extremities equally. - Reports significant fatigue and weakness, requiring a rollator for ambulation at baseline, and has been able to use it. - Denies any recent changes in fluid intake; daughter notes she is a good water drinker. - Daughter reports elevated blood pressure readings over the past few days, with the most recent reading at home being 160/100 mmHg last night. - Denies any known vascular disease; daughter notes that her feet have been purple for 20 years, which is normal for her. [facility] Medical History Bradycardia H/O abdominal pain Difficulty balancing Pure hypercholesterolemia Essential hypertension Family history of colon cancer in mother skilled nursing current use of 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 LETICIA (obstructive sleep apnea) Palpitations Supraventricular tachycardia Chest pain, unspecified GERD (gastroesophageal reflux disease) Family history of premature coronary heart disease Patent foramen ovale Peripheral neuropathy Long-term use of high-risk medication Nonsustained ventricular tachycardia Excessive sleepiness Paroxysmal A-fib Snoring Obstructive sleep apnea Home Medications ?Medication ?Instructions ?Recorded ?Last Taken ?Type latanoprost 0.005 % eye drops 1 drp ophthalmic (eye) QHS eyes 09/12/16 04/12/25 History levothyroxine 75 mcg tablet 75 mcg PO MOTUWETHFRSA hypothyroid 02/27/20 04/12/25 History timolol maleate 0.5 % eye drops 1 drp ophthalmic (eye) BID eye 12/12/23 04/12/25 History health vit C 250 mg-vit E 90 mg-zinc 40 1 tab PO BID eye health 12/12/23 04/12/25 History mg-copper 1 [id number] capsule (PreserVision AREDS-2) gabapentin 100 mg capsule 100 mg PO BID neuropathy 07/04/24 04/12/25 History lorazepam 0.5 mg tablet 0.5 mg PO BID sleep 07/04/24 04/12/25 History gabapentin 400 mg capsule 400 mg PO QHS 10/19/24 04/12/25 History pantoprazole 20 mg tablet,delayed 20 mg PO DAILY 10/19/24 04/12/25 History release dofetilide 125 mcg capsule 125 mcg PO BID #60 caps 10/25/24 04/12/25 Rx (Tikosyn) losartan 25 mg tablet 25 mg PO QDAY 10/25/24 04/12/25 History warfarin 4 mg tablet 4 mg PO DAILY anticoag #120 tabs 12/03/24 04/12/25 Rx fosfomycin tromethamine 3 gram 1 packet PO .once #1 ea 04/13/25 Unknown Rx oral packet levothyroxine 75 mcg tablet 37.5 mcg PO JETER 04/13/25 04/06/25 History (Synthroid) ondansetron 8 mg disintegrating 8 mg PO Q8H PRN nausea and 04/13/25 Unknown Rx tablet vomiting #12 tabs Allergy/AdvReac Type Severity Reaction Status Date / Time enoxaparin (From Lovenox) Allergy Rash Verified 04/13/25 07:16 Sulfa (Sulfonamide Allergy Hives Verified 04/13/25 07:16 Antibiotics) Family History Mother Cancer Colon Diabetes Sister CAD (coronary artery disease) Heart disease Diabetes Son Kidney disease Surgical History Hx of colonoscopy with polypectomy (~2017) History of radiofrequency ablation procedure for cardiac arrhythmia (~08/17/17) Tooth disorder S/P arthroscopic surgery of left knee History of total right knee replacement S/P excision of lipoma H/O section S/P appendectomy S/P lateral meniscal repair H/O: hysterectomy Social History Smoking Status: Former smoker second hand exposure: No alcohol intake: never substance use type: does not use caffeine: No what type of physical activity do you participate in: other details: stationary bike frequency: daily seatbelt use: always do you feel safe at home: Yes ROS ROS ED Review of Systems ROS Unobtainable: other Details: limited due to dementia Constitutional Constitutional ED: Reports malaise and weakness; Denies chills or fever(s) Eyes Eyes: Denies change in vision ENT ENT ED: Denies ear pain, rhinorrhea or sore throat Cardiovascular Cardiovascular: Denies chest pain or palpitations Respiratory/Chest Respiratory/Chest: Denies cough or dyspnea Gastrointestinal Gastrointestinal: Reports nausea; Denies abdominal pain, diarrhea or vomiting Musculoskeletal Musculoskeletal: Denies back pain or neck pain Neurologic Neurologic: Denies headache(s) or paresthesias Psychiatric Psychiatric: Reports anxiety; Denies suicidal thoughts EXAM Physical Exam Const Vital Signs: 04/13/25 07:15 04/13/25 07:39 04/13/25 09:54 Temperature 97.6 F L Temperature Source Oral Pulse Rate 69 64 Respiratory Rate 18 18 Respiratory Effort Normal Respiratory Pattern Normal Blood Pressure 145/73 H 157/66 H Blood Pressure Mean 97 96 Pulse Ox 100 99 Oxygen Delivery Method Room Air Room Air Positive well nourished and well developed General Appearance ED: well developed and NAD HEENT Reports moist mucous membranes normocephalic and atraumatic Eyes PERRL and EOMs intact bilaterally Neck full ROM, supple and no JVD Resp normal respiratory effort and clear to auscultation bilaterally Cardio regular rate, regular rhythm and no murmurs Rate: Negative for bradycardia or tachycardic GI non-tender and non-distended Auscultation: normoactive bowel sounds Palpation: soft Back/Spine no CVA tenderness General Back: other FROM Extremity normal to inspection Extremity Narrative: 2+/4 bilateral radial and dorsalis pedis pulses. Purpuric/ecchymotic bilateral feet and lower legs, stable for years per daughter General Extremety ED: Negative for edema, pulses abnormal or tenderness General Extremity: Negative for edema or pulses abnormal Neuro CN's II-XII intact bilaterally and no sensory deficits noted Neuro Narrative: Disoriented to time at baseline per family. Nonfocal peripheral neurologic exam. Sensorium / Orientation: awake, alert and orientation impaired Motor Exam: general weakness Psych Psych Narrative: A little anxious but otherwise mental status unremarkable Skin no rashes or lesions noted and no wounds Skin Narrative: Ecchymosis/purpura nontender nonraised to both feet and lower distal legs, see above MDM MDM MDM Narrative Medical decision making narrative: Assessment: The patient is a 89-year-old female with PMH of dementia and chronic warfarin therapy presenting for several days of generalized weakness and nausea. Differential included cardiopulmonary, infectious, metabolic, hematologic, and dysrhythmic etiologies. EKG is unchanged from prior and shows a rhythm the machine calls junctional but is likely sinus, making dysrhythmia unlikely. Troponin of 15 is only minimally above normal and, given multi-day symptoms, does not suggest acute coronary syndrome. Chest X-ray reveals chronic changes without convincing evidence of pneumonia. Basic labs are unrevealing except for urinalysis with positive nitrate, 500 leukocyte esterase, 5-10 WBC/hpf, and 1+ bacteria, pointing toward urinary infection. Given these findings and absence of sepsis, acute cystitis is the most likely cause of her current symptoms. Plan: - Administered IV Rocephin 1 g for presumed UTI. - Arranged single oral dose of fosfomycin through outpatient pharmacy. - Urine sent for culture; results to be followed as outpatient. - Offered hospital admission; patient declined after discussion, comfortable to discharge home with and daughter in attendance. - Provided return precautions and follow-up instructions; family verbalized understanding. Diagnostics: - Labs: troponin 15 (upper limit 14), WBC 4.5 K/?L, HGB 11.9 g/dL, INR 2.0 therapeutic, BUN 20 mg/dL, creatinine 0.75 mg/dL, electrolytes and liver enzymes within normal limits. - Urinalysis: positive nitrate, leukocyte esterase 500, 5-10 WBC/hpf, 1+ bacteria; specimen sent for culture. - Chest X-ray: chronic abnormalities; strand-like left basilar opacity likely atelectasis/scarring, cannot exclude infection but no clinical correlate. - EKG interpreted independently by , Michael Lopez: rhythm appears sinus despite machine read of junctional, unchanged from prior. Lab Data Attestation: I reviewed the patient's lab results. Labs: Laboratory Results - last 24 hr 04/13/25 04/13/25 04/13/25 04:55 07:55 08:35 WBC 4.5 RBC 3.79 L Hgb 11.9 L Hct 36.6 L MCV 96.6 MCH 31.4 MCHC 32.5 RDW Std Deviation 46.6 H RDW Coeff of Corbin 13.1 Plt Count 211 MPV 9.7 Immature Gran % (Auto) 0.200 Neut % (Auto) 57.1 Lymph % (Auto) 29.1 Burt % (Auto) 12.2 H Eos % (Auto) 0.7 Baso % (Auto) 0.7 Absolute Neuts (auto) 2.6 Absolute Lymphs (auto) 1.31 Nucleated RBC % 0 PT 23.3 H INR 2.0 Sodium 140 Potassium 4.1 Chloride 103 Carbon Dioxide 27.6 Anion Gap 9 BUN 20 H Creatinine 0.75 Estim Creat Clear Calc 48.33 L Est GFR (MDRD) Non-Af 77 BUN/Creatinine Ratio 26.5 H Glucose 91 Calcium 9.5 Total Bilirubin 0.39 AST 22 ALT 14 Alkaline Phosphatase 83 Troponin T High Sens 15 H D Total Protein 6.3 Albumin 4.0 Globulin 2.3 Albumin/Globulin Ratio 1.8 Urine Color Yellow Urine Clarity Clear Urine pH 7.0 Ur Specific Roy 1.010 Urine Protein Negative Urine Glucose (UA) Normal Urine Ketones Negative Urine Occult Blood 25 H Urine Nitrite Positive H Urine Bilirubin Negative Urine Urobilinogen Normal Ur Leukocyte Esterase 500 H Urine RBC 0 SEEN Urine WBC 5-10 SEEN Ur Squamous Epith Cells 0-5 SEEN Urine Bacteria 1+ Urine Mucus 0 SEEN Radiography Chest X-Ray - ED: 1 View, Read by ED Physician, No Acute Disease, Chronic Changes and No Infiltrates Diagnostic Testing: Clinical Impression(s) from Imaging Studies Chest X-Ray 04/13/25 07:40 IMPRESSION: Strand-like left basilar opacity, likely atelectasis/scarring with infection not excluded. Reading Location: [facility] Rhythm Strip Rhythm Strip: Sinus Rhythm Rate: 60 Ectopy: None EKG Initial EKG: Attestation: I personally reviewed and interpreted this EKG as follows: Interpretation: Sinus Rhythm, No Acute Injury Pattern and LAFB Comments: poor R wave progression Prior EKG tracings: available for review Prior: Unchanged Discharge Plan Triage Chief Complaint: General Illness ED Provider: Michael Lopez Dx/Rx/DC Orders Clinical Impression: Acute cystitis without hematuria, Nausea, Generalized weakness, Warfarin-induced coagulopathy Instructions: UTIs Prescriptions: New fosfomycin tromethamine 3 gram packet 1 packet PO .once Qty: 1 0RF ondansetron 8 mg tablet,disintegrating 8 mg PO Q8H PRN (Reason: nausea and vomiting) Qty: 12 0RF No Action PreserVision AREDS-2 250-90-40-1 mg capsule 1 tab PO BID timolol maleate 0.5 % drops 1 drp ophthalmic (eye) BID lorazepam 0.5 mg tablet 0.5 mg PO BID gabapentin 100 mg capsule 100 mg PO BID losartan 25 mg tablet 25 mg PO QDAY dofetilide [Tikosyn] 125 mcg capsule 125 mcg PO BID Qty: 60 11RF latanoprost 1 DROP bottle 1 drp ophthalmic (eye) QHS levothyroxine 75 mcg tablet 75 mcg PO MOTUWETHFRSA gabapentin 400 mg capsule 400 mg PO QHS pantoprazole 20 mg tablet,delayed release (DR/EC) 20 mg PO DAILY Patient Comments: PT TAKES AT BEDTIME. levothyroxine [Synthroid] 75 mcg tablet 37.5 mcg PO JETER warfarin 4 mg tablet 4 mg PO DAILY Qty: 120 3RF Protocol: Dose Management Condition: Monday Dose/Route: 4 mg Instruction: 1 x 4 mg tablet Condition: Monday Dose/Route: 4 mg Instruction: 1 x 4 mg tablet Condition: Monday Dose/Route: 4 mg Instruction: 1 x 4 mg tablet Condition: Monday Dose/Route: 4 mg Instruction: 1 x 4 mg tablet Condition: Dose/Route: 4 mg Instruction: 1 x 4 mg tablet Condition: Monday Dose/Route: 4 mg Instruction: 1 x 4 mg tablet Condition: Monday Dose/Route: 4 mg Instruction: 1 x 4 mg tablet Protocol Text: Adjustment Start Date: 04/10/25 INR Value: 2.4 INR Date: 04/09/25 Recheck Date: 04/17/25 Rx Instructions: Take 4mg daily, or as directed. Primary Care Provider: Luis M Lama Referrals: Luis M Lama DO [Primary Care Provider, Family Practice] - 3-5 Days Print Language: Syrian Disposition Disposition: Home, Self Care
--- OUTSIDE RECORDS SUMMARY | 2025-04-13 08:10 | XMS RPT_ITS | CCD ---
Author Organization [facility] Care Team Providers Care Warehouse Operations Manager Name Role Phone Dr. Luis M Lama Primary Care Provider [phone] Dr. Luis M Lama Referring Provider [phone] Sebastián Bolaños Attending Provider [phone] Dr. Luis M Lama Primary Care Provider [phone] Dr. Luis M Lama Referring Provider [phone] Dr. Antoni Valerio Attending Provider [phone] VICTOR M Chairez Attending Provider Dr. Luis M Lama Primary Care Provider [phone] Dr. Luis M Lama Referring Provider [phone] Antoni Valerio Attending Provider [phone] VICTOR M Chairez Attending Provider VICTOR M Madison Attending Provider Dr. Luis M Lama Primary Care Provider [phone] Dr. Luis M Lama Referring Provider [phone] JUSTICE Palza NP Attending Provider Dr. Luis M Lama Primary Care Provider [phone] Dr. Luis M Lama Referring Provider [phone] Dr. Luis M Lama Primary Care Provider [phone] Dr. Luis M Lama Referring Provider [phone] VICTOR M Chairez Attending Provider Dr. Luis M Lama Primary Care Provider [phone] Dr. Luis M Lama Referring Provider Dr. Luis M Lama Primary Care Provider [phone] Luis M Lama Referring Provider VICTOR M Chairez Attending Provider VICTOR M Madison Attending Provider Dr. Luis M Lama Primary Care Provider [phone] Luis M Lama Referring Provider VICTOR M Madison Attending Provider Dr. Antoni Valerio Attending Provider [phone] Dr. Luis M Lama Primary Care Provider [phone] Luis M Lama Referring Provider [phone] Tommie Swanson Attending Provider [phone] Dr. Gurdeep Martinez Attending Provider [phone] Dr. Gurdeep Martinez Referring Provider [phone] Dr. Clement Luna Attending Provider [phone] Luis M Lama Primary Care Provider [phone] Luis M Lama Referring Provider Dr. Gurdeep Martinez Attending Provider [phone] Dr. Gurdeep Martinez Referring Provider [phone] Dr. Clement Luna Attending Provider [phone] Luis M Lama Primary Care Unavailable Shawna Plaza Referring Unavailable Shawna Plaza Attending Unavailable Gurdeep Martinez Consulting Unavailable Hung Keyes Consulting Unavailable Kelby, Luis M Consulting Unavailable Courtney Perales Consulting UnavailSampson Brooks Attending Unavailable Kelby, Luis M Primary Care Unavailable Gurdeep Martinez Referring Unavailable Gurdeep Martinez Attending Unavailable Kelby, Luis M Primary Care Unavailable Kelby, Luis M Primary Care Unavailable Kelby, Luis M Attending Unavailable Gurdeep Martinez Consulting Unavailable Kelby, Luis M Referring Unavailable Kelby, Luis M Primary Care Unavailable Kelby, Luis M Attending Unavailable Kelby, Luis M Primary Care Unavailable Kelby, Luis M Referring Unavailable Kelby, Luis M Attending Unavailable KelbyLuis M nam Primary Care Unavailable Gurdeep Martinez Consulting Unavailable Shawna Plaza Referring Unavailable Shawna Plaza Attending Unavailable Wali, Hung H Consulting Unavailable KelbyLuis M hood Consulting Unavailable Perales, Courtney M Consulting Unavailpraish e KelbyLuis M hood Primary Care Unavailable Gurdeep Martinez Consulting Unavailable Darek, Shawna Attending Unavailable Shawna Plaza Referring Unavailable Roof, Hung H Consulting Unavailable KelbyLuis M nam Consulting Unavailable Perales, Courtney M Consulting Unavailparish e KelbyLuis M hood Primary Care Unavailable KelbyLuis M hood Attending Unavailable Kelby, Luis M Primary Care Unavailable KelbyLuis M hood Attending Unavailable Kelby, Luis M Primary Care Unavailable KelbyLuis M hood Attending Unavailable KelbyLuis M hood Attending Unavailable KelbyLuis M hood Primary Care Unavailable KelbyLuis M hood Attending Unavailable KelbyLuis M hood Primary Care Unavailable KelbyLuis M hodo Attending Unavailable KelbyLuis M hood Primary Care Unavailable KelbyLuis M hood Primary Care Unavailable Luis M Lama Attending Unavailable KelbyLuis M hood Primary Care Unavailable KelbyLuis M hood Attending Unavailable KelbyLuis M hood Primary Care Unavailable KelbyLuis M hood Attending Unavailable KelbyLuis M hood Primary Care Unavailable KelbyLuis M hood Attending Unavailable KelbyLuis M hood Primary Care Unavailable KelbyLuis M hood Attending Unavailable KelbyLuis M hood Primary Care Unavailable KelbyLuis M hood Attending Unavailable KelbyLuis M hood Primary Care Unavailable KelbyLuis M hood Attending Unavailable KelbyLuis M hood Primary Care Unavailable KelbyLuis M hood Attending Unavailable KelbyLuis M hood Primary Care Unavailable KelbyLuis M hood Attending Unavailable KelbyLuis M hood Primary Care Unavailable KelybLuis M hood Attending Unavailable KelbyLuis M hood Primary Care Unavailable KelbyLuis M hood Attending Unavailable KelbyLuis M hood Referring Unavailable KelbyLuis M hood Primary Care Unavailable KelbyLuis M hood Attending Unavailable Gurdeep Martinez Referring Unavailable Gurdeep Martinez Attending Unavailable KelbyLuis M hood Primary Care Unavailable KelbyLuis M hood Attending Unavailable KelbyLuis M hood Primary Care Unavailable KelbyLuis M hood Attending Unavailable KelbyLuis M hood Primary Care Unavailable KelbyLuis M hood Attending Unavailable KelbyLuis M hood Primary Care Unavailable KelbyLuis M hood Primary Care Unavailable KelbyLuis M hood Attending Unavailable KelbyLuis M hood Primary Care Unavailable KelbyLuis M hood Attending Unavailable KelbyLuis M hood Primary Care Unavailable KelbyLuis M hood Attending Unavailable KelbyLuis M Primary Care Unavailable KelbyLuis M hood Attending Unavailable KelbyLuis M hood Primary Care Unavailable Kelby, Luis M Attending [...] Care Unavailable Kelby, Luis M Attending Unavailable Gurdeep Martinez Referring Unavailable Gurdeep Martinez Attending Unavailable Kelby, Luis M Primary Care Unavailable Kelby, Luis M Primary Care Unavailable Kelby, Luis M Attending Unavailable Kelby, Luis M Primary Care Unavailable Kelby, Luis M Referring Unavailable Courtney Perales Attending Unavailabl e Kelby, Luis M Primary Care Unavailable Ashley Hyatt Attending Unavailable Michelle, Gurdeep Attending Unavailable Kelby, Luis [...] M hood Attending Unavailable Kelby, Luis M Referring Unavailable Allergies Allergy Classification Reported Allergen(s) Allergy Type Date of Onset Reaction(s) Facility (20 sources) Enoxaparin Drug Allergy 10-22-19 22 Rash [facility] (20 sources) Sulfonamides (Antibiotic); Translations: [Sulfa (Sulfonamide Antibiotics)] Allergy to substance 10-22-19 22 Hives [facility] (13 sources) hydroCHLOROthiazide Drug Allergy 08-30-19 23 urinary incontinence/l eaking [facility] (12 sources) amLODIPine Drug Allergy 10-23-19 23 Marked swelling in feet and ankles [facility] (1 source) Amiodarone Drug Allergy 02-21-20 24 [facility] Repository (1 source) amLODIPine Drug Allergy 02-21-20 24 [facility] Repository (1 source) dofetilide Drug Allergy 02-21-20 24 [facility] Repository (1 source) Enoxaparin Drug Allergy 11-13-19 25 [facility] Repository (1 source) hydroCHLOROthiazide Drug Allergy 02-21-20 24 [facility] Repository Medications Current Medications Medication Drug Class(es) [...] by mouth twice daily at dinner Vitamins A,C,F-Fufo-Evivcv (Preservision Areds) 2,148 mcg-113 mg-45 mg-17.4mg tablet [...] Simvastatin Discontinue d 20 MG PO DAILY 90 March 23, 2019 12:02pm June 13, 2019 [...] once daily Warfarin Discontinued 4 MG PO SUMOTUWETHSA April 16, 2018 10:04am September 03, 2018 [...] 16, 2022 12:00am August 29, 2022 5:42pm Exgxwtdzy-H5-Wls71-Alga l Oil (20 sources) Start: 09-18-2016 End: 04-19-2017 Ammilkvae-B3-Qla79-Alg al Oil Discontinued 1 EACH PO AT BEDTIME September 17, 2016 11:00pm April 19, 2017 8:59am Start: 09-18-2016 End: 04-19-2017 Gfdsomuyn-B9-Cek46-Algal Oil Discontinued 1 EACH PO AT BEDTIME September 18, 2016 12:00am April 19, 2017 9:59am Ovpczrtov-U1-Uwh62-Algal Oil (Metanx (Algal Oil)) 3 mg-35 mg-2 mg -90.314 mg capsule (20 sources) Start: 04-19-2017 End: 06-27-2022 take 1 capsule by mouth once daily Cvqzqszca-Z7-Cfm78-Algal Oil (Metanx (Algal Oil)) 3 mg-35 mg-2 mg -90.314 mg capsule Discontinued 1 CAP PO .daily April 19, 2017 12:00am June 27, 2022 9:38am Start: 04-19-2017 End: 06-27-2022 take 1 capsule by mouth once daily Xbyxfepfx-Q3-Kxu75-Algal Oil (Metanx (Algal Oil)) 3 mg-35 mg-2 mg -90.314 mg capsule Discontinued 1 CAP PO .daily April 19, 2017 1:00am June 27, 2022 10:38am Start: 04-19-2017 take 1 capsule by [facility] once daily Qpmcopuat-K0-Xhv71-Algal Oil (Metanx (Algal Oil)) 3 mg-35 mg-2 mg -90.314 mg capsule Active 1 CAP PO .daily April 19, 2017 12:00am Start: 04-19-2017 take 1 capsule by [facility] once daily Jlhdjbvvz-T6-Xqp28-Algal Oil (Metanx (Algal Oil)) 3 mg-35 mg-2 [...] October 21, 2021 12:00am polyethylene glycol 3350 92452 mg powder for oral solution (20 sources) [...] atrial fibrillation; Translations: [Paroxysmal atrial fibrillation] Onset: 11-21-2024 Chronic Cardiac dysrhythmias (8 sources) Bradycardia; Translations: [Bradycardia, unspecified] 07-03-2023 Episodic Disorders of lipid metabolism (20 sources) Pure hypercholesterolemia; Translations: [Pure hypercholesterolemia, unspecified] Chronic Essential hypertension (20 sources) Essential hypertension; Translations: [Essential (primary) hypertension] Onset: 04-17-2024 Chronic Fever of unknown origin (17 sources) Fever; Translations: [Fever, unspecified] 06-27-2022 Episodic Malaise and fatigue (20 sources) Fatigue; Translations: [Other fatigue] Episodic Other aftercare (20 sources) Long-term current use of 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; Translations: [nursing home (current) use of 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s] 04-17-2018 Episodic Other aftercare (5 sources) Drug therapy finding; Translations: [Other terminal block assembler (current) drug therapy] 05-31-2023 Episodic Other and unspecified benign neoplasm [...] of malignant neoplasm of gastrointestinal tract] Episodic Thyroid disorders (1 source) Hypothyroidism, unspecified; Translations: [Hypothyroidism, unspecified] Onset: 11-01-2024 Chronic Viral infection (20 sources) Disease caused by 2019-nCoV; Translations: [COVID-19] 01-26-2021 Episodic Past or Other Problems Problem Classification Problem Date Documented Date Episodic/Chronic Abdominal pain (1 source) Unspecified abdominal pain; Translations: [Unspecified abdominal pain] Onset: 11-20-2024 Episodic Nonspecific chest pain (1 source) Chest pain, unspecified; Translations: [Chest pain, unspecified] Onset: 10-25-2024 Episodic Other aftercare (6 sources) Other residential (current) drug therapy; Translations: [Long-term (current) use of other medications] Onset: 10-25-2024 05-31-2023 Episodic Other aftercare (10 sources) 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 terminal 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s; Translations: [Long-term (current) use of 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s] Onset: 01-01-2025 01-24-2024 Episodic Residual codes; unclassified (20 sources) History of radiofrequency ablation operation for arrhythmia; Translations: [Other specified postprocedural states] Onset: 08-06-2017 04-17-2018 Episodic Residual codes; unclassified (5 sources) Other specified postprocedural states; Translations: [Personal history of surgery to heart and great vessels, presenting hazards to health] Onset: 08-06-2017 05-31-2023 Episodic Residual codes; unclassified (1 source) Other amnesia; Translations: [Other amnesia] Onset: 09-12-2024 Episodic Unclassified (20 sources) LETICIA (obstructive sleep apnea) 04-17-2018 Urinary tract infections (1 source) Urinary tract infection, site not specified; Translations: [Urinary tract infection, site not specified] Onset: 06-13-2024 Episodic Results Test Name Value Interpretation Reference Range Facility Abdomen Single Viewon 2024 Abdomen Single View [facility] [address] [place] [address] Abdomen Single View MR#: [id number] Acct: [id number] Name: ELIZABETH CHEATHAM Rep #: [id number] : 1935 F 89 From: Megan fletcher MD PCP: Dr. Luis M Lama DO Status: REG CLI Study: Abdomen Single View Date of Exam: 11/14/24 Exam# [id number] Ordering Dr: Luis M Lama DO PROCEDURE: ABDOMEN SINGLE VIEW 11/14/2024 REASON FOR EXAM: ABD PAIN TECHNIQUE: ABDOMEN SINGLE VIEW COMPARISON: None FINDINGS: Bowel gas: Moderate constipation identified with fecal material distributed throughout the colon. No evidence of bowel obstruction. Calcifications: Questionable tiny bilateral renal confinements calcifications are seen likely tiny renal stone. Bones: No acute findings RAD/Abdomen Single View IMPRESSION: Possible bilateral tiny renal stones. Please correlate with ultrasounds as clinically warranted. Constipation. [facility] [address] CC: Dr. Luis M Lama DO Protection Specialist: Signed Normal [facility] Cardiology Visit Reporton Cardiology Visit Report [facility] [address] [place] [address] OFFICE VISIT Date of Service: 11/12/24 MR#: [id number] Acct: [id number] Name: ELIZAEBTH CHEATHAM Rep #: [id number] : 1935 Provider: Dr. Gurdeep patel MD Age/Sex: 89/F [place] [facility] [place] Status: Signed HPI HPI History of Present Illness Details: Patient very pleasant 89-year-old white female that comes in today with her and 2 daughters 1 of which is a pharmacist here at [facility]. Patient reports that she is feeling pretty good today she feels better than the last time she was evaluated here. The last time she was here she had a junctional rhythm on her ECG today her ECG shows a heart rate of 47 and sinus bradycardia with a left anterior fascicular block moderate voltage criteria for LVH and poor R wave progression. The patient denies any syncope or near syncope she denies any significant lightheadedness or dizzy spells. She does not get around much in the house but she does walks on within her house. She is not evaluated in the wheelchair today. She has a known history of normal LV function EF of 60% with mild pulmonary artery systolic pressures of 38 and stage II diastolic dysfunction. This was from an echocardiogram June 2023. Previous Holter monitor done May 2023 showed average heart rate of 48 minimum heart rate of 36 and maximum of 76. There was no atrial fibrillation documented at that time. The patient does have a history of paroxysmal atrial fibs. We had stopped her flecainide and then she had episodes of palpitations her [employer] mobile device detected atrial fibrillation prior to her last office visit in October 2024. The patient took her Tikosyn 250 mcg pill in the pocket dose by the time she got to the ED she had converted to sinus rhythm. Her heart rate was up in the 130 range and she reinstituted her metoprolol her heart rate but then turned down in the 50 bpm range. She simply came to the office which showed a competing junctional rhythm at 58 bpm and rare PVCs and a Holter monitor was ordered. We also reinstituted her on flecainide 125 mcg twice daily. Patient is Holter monitor done November 05 for 24 hours showed 1% PVCs 23 atrial couplets 13 atrial runs totaling at 49 beats the longest was a 8 beat run. The longest R-R interval was 1.8 seconds that occurred at oh 2:40 AM. There was no atrial fibrillation documented and no symptoms were reported. The patient's average heart rate was 54 minimum heart rate was 36 and maximum heart rate was 102. The patient is no longer reporting that she feels bad. I would recommend that we avoid any rate slowing drugs at this point in time and continue her on the Tikosyn 125 mcg twice daily. We had a long discussion about the possible progression of her sick sinus syndrome due to needing permanent pacemaker implantation. At this point time she does not qualify nor is it indicated. Intake Vital Signs 10/25/24 13:30 11/12/24 10:50 Height 5 ft 5 in 5 ft 5 in Weight: 149 lb BMI 24.7 BP 136/76 H Blood Pressure Location Lt brachial Position Sitting Respiration 16 Pulse 49 L Pulse Source Monitor Pulse Oximetry (%) 97 Oxygen Delivery Method room air Intake Visit Reasons: See Note Interactive Multimedia Designer Required: No Accompanied by: , daughter Is patient in pain?: No Allergies enoxaparin (From Lovenox) Allergy (Verified 11/12/24 10:52) Rash Sulfa (Sulfonamide Antibiotics) Allergy (Verified 11/12/24 10:52) Hives Medications ???Medication ???Instructions ???Recorded ???Confirmed ???Type latanoprost 0.005 % eye drops 1 drp ophthalmic (eye) QHS eyes 11/12/24 History levothyroxine 75 mcg tablet 75 mcg PO DAILY hypothyroid 11/12/24 History timolol maleate 0.5 % eye drops 1 drp ophthalmic (eye) BID eye 10/2911/12/24 History health vit C 250 mg-vit E 90 mg-zinc 40 1 tab PO BID eye health 12/12/23 0 11/12/24 History mg-copper 1 kt-iqdvdo-svnikd capsule (PreserVision AREDS-2) gabapentin 100 mg capsule 100 mg PO BID neuropathy 07/04/24 11/12/24 History lorazepam 0.5 mg tablet 0.5 mg PO BID sleep 07/04/2411/12 History gabapentin 400 mg capsule 400 mg PO QHS 10/19/24 11/12/24 Hi story pantoprazole 20 mg tablet,delayed 20 mg PO DAILY 10/19/24 11/12/24 History release warfarin 4 mg tablet 4 mg PO DAILY anticoag 10/19/24 History dofetilide 125 mcg capsule 125 mcg PO BID #60 caps 10/25/24 0 11/12/24 Rx (Tikosyn) losartan 25 mg tablet 25 mg PO QDAY 10/25/24 11/12/24 Hi story Ejection fraction %: 60 Have you fallen in the past year?: No [facility] Medical History Bradycardia H/O abdominal pain Difficulty balancing Pure hypercholesterolemi (more content not included)... Normal [facility] Office Visit Reporton 2024 Office Visit Report [facility] [address] [place] [address] OFFICE VISIT Date of Service: 10/28/24 MR#: [id number] Acct: [id number] Patient: ELIZABETH CHEATHAM Rep #: [id number] : 1935 Provider: Dr. Gurdeep patel MD Age/Sex: 89/F [place] [facility] [place] Status: Signed Intake Vital Signs 10/25/24 13:30 Height 5 ft 5 in Weight: 145 lb BMI 24.1 BP 146/68 H Blood Pressure Location Rt brachial Position Sitting Respiration 18 Pulse 56 L Pulse Source Monitor Pulse Oximetry (%) 98 Oxygen Delivery Method room air Comment weight per patient report Intake Visit Reasons: BP EKG PER Allergies enoxaparin (From Lovenox) Allergy (Verified 10/25/24 13:31) Rash Sulfa (Sulfonamide Antibiotics) Allergy (Verified 10/25/24 13:31) Hives Have you fallen in the past year?: No Nurse's Note: Patient in office for EKG and BP check after reinstituting Tikosyn 125mg twice daily on 10/25/24. BP 147/75, P 45, R 18, O2 95%. Patient states she feels the same as she did last week, punky. EKG completed. Patient aware that Dr. Martinez will review vitals and EKG and office will call with recommendations. Assessment and Plan Assessment and Plan (1) Long-term use of high-risk medication: Status: Acute Plan: QT interval on ECG is acceptable. (2) Paroxysmal A-fib: Status: Chronic Plan: Patient has significant bradycardia - sinus benjamin on ECG. This could be etiology of punky feeling. She is on no rate modulating meds except Tikosyn to control her PAF. This is likely SSS with tachy/benjamin physiology. Will need to do 24hour Holter to acess HR in her home environment and then consider EP evalutaion for possible DDD pacer to help control her bradycardia. The patient has signficant cognitive issues but still lives at home with family assistance. Daughter, Qasim, is pharmacist here at [facility]. Ofered Holter. will see in office with family once results are back to decide on further treatment options. Orders: Orders 12 Lead E[place] performed [place] [facility] [place] 10/28/24 I48.0 - Paroxysmal atrial fibrillation Cardiac Holter Monitor, 24 Hrs 10/28/24 I48.0 - Paroxysmal atrial fibrillation Clinical Quality Measures Falls Risk Screening/Assistive Devices Have you fallen in the past year?: No 10/29/24 1113 Date Gurdeep Mendoza Signature: Date (if applicable) CC: Normal [facility] Cardiology Visit Reporton Cardiology Visit Report [facility] [address] [place] [address] OFFICE VISIT Date of Service: 10/25/24 MR#: [id number] Acct: [id number] Name: ELIZABETH CHEATHAM Rep #: [id number] : 1935 Provider: Dr. Gurdeep patel MD Age/Sex: 89/F [place] [facility] [place] Status: Signed HPI HPI History of Present Illness Details: Patient is 89-year-old white female who comes in today with her 2 daughters. Qasim the pharmacist is with her today as well. We reviewed the events of the last 2 weeks. The patient had the episode where her [employer] mobile detected atrial fibrillation last Monday she went to the emergency department after taking her pill in the pocket Tikosyn 250 mg dose. By the time she got the emergency room she had converted to sinus rhythm. The patient then called in because her heart rate was up in the 130 range and she reinstituted her metoprolol at the physician's discretion. Her heart rate is then slowed today it was in the 50 bpm range she did not take any metoprolol today. ECG in the office today shows sinus rhythm with a competing junctional paced rhythm at 58 bpm and a rare PVC. QT interval is 400 ms. The patient denies any syncope or near syncope. She just reports she does not feel good she gets very anxious when she goes into atrial fibrillation. Her daughters have been having to spend the night with her. She does live with her . The patient also is having progressive cognitive decline ever since April when she had COVID. The patient was seen in the emergency department October 10, 2024 her chest x-ray did not show any signs or symptoms of congestive failure her enzymes were minimally elevated at 16, her blood pressure was low and her losartan was decreased to once a day. Her thyroid studies were normal that were done today. She is on replacement therapy. Please see the [email or web address] work group message that started October 21, 2024 and last entry was October 24, 2024 there is more detail there. Historically the patient has had multiple drug intolerances. She had been well-controlled on Tikosyn from an atrial fibs standpoint but did not feel good on it so we discontinued it and had placed her on metoprolol in place. She then broke through with atrial fibrillation and had been intermittently off the metoprolol as well due to low heart rates. Intake Vital Signs 10/19/24 08:26 10/25/24 13:30 Height 5 ft 5 in 5 ft 5 in Weight: 145 lb BMI 24.1 BP 146/68 H Blood Pressure Location Rt brachial Position Sitting Respiration 18 Pulse 56 L Pulse Source Monitor Pulse Oximetry (%) 98 Oxygen Delivery Method room air Comment weight per patient report Intake Visit Reasons: S/P [facility] 10/19 CP Interactive Multimedia Designer Required: No Accompanied by: Self Is patient in pain?: No Allergies enoxaparin (From Lovenox) Allergy (Verified 10/25/24 13:31) Rash Sulfa (Sulfonamide Antibiotics) Allergy (Verified 10/25/24 13:31) Hives Medications ???Medication ???Instructions ???Recorded ???Confirmed ???Type latanoprost 0.005 % eye drops 1 drp ophthalmic (eye) QHS eyes 10/25/24 History levothyroxine 75 mcg tablet 75 mcg PO DAILY hypothyroid 10/25/24 History timolol maleate 0.5 % eye drops 1 drp ophthalmic (eye) BID eye 10/2910/25/24 History health vit C 250 mg-vit E 90 mg-zinc 40 1 tab PO BID eye health 12/12/23 0 10/25/24 History mg-copper 1 he-cgaphb-ijsgwo capsule (PreserVision AREDS-2) gabapentin 100 mg capsule 100 mg PO BID neuropathy 07/04/24 10/25/24 History lorazepam 0.5 mg tablet 0.5 mg PO BID sleep 07/04/2410/25 History chlorhexidine gluconate 0.12 % 15 ml PO BID 10/19/24 10/25/24 His tory mouthwash gabapentin 400 mg capsule 400 mg PO QHS 10/19/24 10/25/24 Hi story pantoprazole 20 mg tablet,delayed 20 mg PO DAILY 10/19/24 10/25/24 History release warfarin 4 mg tablet 4 mg PO DAILY anticoag 10/19/24 History dofetilide 125 mcg capsule 125 mcg PO BID #60 caps 10/25/24 0 10/25/24 Rx (Tikosyn) losartan 25 mg tablet 25 mg PO QDAY 10/25/24 History Ejection fraction %: 60 Have you fallen in the past year?: No PFSH Medical History Bradycardia H/O abdominal pain Difficulty balancing Pure hypercholesterolemia Essential hypertension Family history of colon cancer in mother nursing home current use of 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 LETICIA (obstructive sleep apnea) Palpitations Supraventricular tachycardia Chest pain, unspecified GERD (gastroesophageal reflux disease) Family history of premature coronary heart disease Patent foramen ovale Peripheral neuropathy Long-term use of high-risk medication Nonsustained ventricular tachycardia Excessive sleepiness Paroxysmal A-fib Snoring Obst (more content not included)... Normal [facility] Thyroid Stim Hormone (TSH)on 10-25-2024 TSH 2.780 uIU/mL Normal 0.300-4.200 [facility] Comment on above: Performed By: #### L 501.1525 ####[facility] [address] [facility] [place], [address] 12 Lead EKGon 10-19-2024 12 Lead EKG [facility] Cardiovascular Services [address] [facility] [place] [address] 12 Lead EKG 10/19/24 1122 MR#: [id number] Acct: [id number] Name: ELIZABETH CHEATHAM Rep #: [id number] : 1935 89 From: Clement Luna MD [...] normal variant ( R in aVL , Hurley product ) Septal infarct , age undetermined Abnormal ECG Confirmed by CLEMENT LUNA MD ([id number]), news editor JAIME MARTIN ([id number]) on 10/22/2024 8:20:46 AM Referred By: Confirmed By: CLEMENT LUNA MD 10/22/24 0820 Date Clement Luna MD CC: Dr. Sampson Melendez MD; Dr. Luis M Lama, DO Signed Normal [facility] 12 Lead EKG [facility] Cardiovascular Services [address] [facility] [place] [address] 12 Lead EKG 10/19/24821 MR#: [id number] Acct: [id number] Name: ELIZABETH CHEATHAM Rep #: [id number] : 1935 89 From: Clement Luna MD [...] Abnormal ECG Confirmed by ALEK ROCHE, CLEMENT ([id number]), news editor JAIME MARTIN ([id number]) on 10/22/2024 8:22:15 AM Referred By: LES Confirmed By: CLEMENT LUNA MD 10/22/24821 Date Clement Luna MD CC: Dr. Sampson Melendez MD; Dr. Luis M Lama DO Signed Normal [facility] Basic Metabolic Profile (BMP )on 10-19-2024 BUN/CRE 17.2 RATIO Normal 10-20 [facility] Comment on above: Performed By: #### L 100.0100, L500.2500, L300.3900, L501.4021 ####[facility] [address] [place], [address] Calcium [Mass/Vol] 9.3 mg/dL Normal 7.6-11.0 [facility] Comment on above: Performed By: #### L 100.0100, L500.2500, L300.3900, L501.4021 ####[facility] [address] [place], [address] Chloride [Moles/Vol] 99 mmol/L Normal 98-108 [facility] Comment on above: Performed By: #### L 100.0100, L500.2500, L300.3900, L501.4021 ####[facility] [address] [place], [address] CO2 [Moles/Vol] 24.8 mmol/L Normal 21.0-32.0 [facility] Comment on above: Performed By: #### L 100.0100, L500.2500, L300.3900, L501.4021 ####[facility] [address] [place], [address] Creatinine [Mass/Vol] 0.87 mg/dL Normal 0.70-1.20 [facility] Comment on above: Performed By: #### L 100.0100, L500.2500, L300.3900, L501.4021 ####[facility] [address] [place], [address] ECRCL 44.88 ml/min Low 50-250 [facility] Comment on above: Performed By: #### L 100.0100, L500.2500, L300.3900, L501.4021 ####[facility] [address] [place], [address] GAP 10 Normal 5-15 [facility] Comment on above: Performed By: #### L 100.0100, L500.2500, L300.3900, L501.4021 ####[facility] [address] [place], [address] GFR/1.73 sq M.predicted among non-blacks MDRD (S/P/Bld) [Vol rate/Area] 64 mL/min/{1.73_m2} Normal >60 [facility] Comment on above: Result Comment: mL/m in/1.73m2 CKD-EPI Creatinine Equation (2020) Performed By: #### L 100.0100, L500.2500, L300.3900, L501.4021 ####[facility] [address] [place], [address] Glucose [Mass/Vol] 113 mg/dL High 70-99 [facility] Comment on above: Performed By: #### L 100.0100, L500.2500, L300.3900, L501.4021 ####[facility] [address] [place], [address] Potassium [Moles/Vol] 4.1 mmol/L Normal 3.3-5.1 [facility] Comment on above: Performed By: #### L 100.0100, L500.2500, L300.3900, L501.4021 ####[facility] [address] [place], [address] Sodium [Moles/Vol] 134 mmol/L Normal 133-145 [facility] Comment on above: Performed By: #### L 100.0100, L500.2500, L300.3900, L501.4021 ####[facility] [address] [place], [address] Urea nitrogen [Mass/Vol] 15 mg/dL Normal 4-19 [facility] Comment on above: Performed By: #### L 100.0100, L500.2500, L300.3900, L501.4021 ####[facility] [address] [place], [address] CBC W/Diff, Automatedon - Absolute Lymph 1.50 X10 3/uL Normal 0.83-4.51 [facility] Comment on above: Performed By: #### L 100.0100, L500.2500, L300.3900, L501.4021 ####[facility] [address] [place], [address] Absolute Neut 2.4 X10 3/uL Normal 2.0-7.7 [facility] Comment on above: Performed By: #### L 100.0100, L500.2500, L300.3900, L501.4021 ####[facility] [address] [place], [address] Basophils/100 WBC (Bld) 0.5 % Normal 0-1 [facility] Comment on above: Performed By: #### L 100.0100, L500.2500, L300.3900, L501.4021 ####[facility] [address] [place], [address] Eosinophils/100 WBC (Bld) 0.5 % Normal 0-5 [facility] Comment on above: Performed By: #### L 100.0100, L500.2500, L300.3900, L501.4021 ####[facility] [address] [place], [address] Erythrocyte distribution width (RBC) [Ratio] 12.7 % Normal 11.6-14.6 [facility] Comment on above: Performed By: #### L 100.0100, L500.2500, L300.3900, L501.4021 ####[facility] [address] [place], [address] Hematocrit (Bld) [Volume fraction] 38.6 % Normal 37-47 [facility] Comment on above: Performed By: #### L 100.0100, L500.2500, L300.3900, L501.4021 ####[facility] [address] [place], [address] Hemoglobin (Bld) [Mass/Vol] 12.9 g/dL Normal 12.0-15.0 [facility] Comment on above: Performed By: #### L 100.0100, L500.2500, L300.3900, L501.4021 ####[facility] [address] [place], [address] IG% 0.200 Normal 0.0-0.9 [facility] Comment on above: Result Comment: IG% - Immature Granulocytes (promyelocytes, myelocytes and metamyelocytes) > 1% indicates that a LEFT SHIFT is Present. Performed By: #### L 100.0100, L500.2500, L300.3900, L501.4021 ####[facility] [address] [place], [address] Lymphocytes/100 WBC (Bld) 34.3 % Normal 19-41 [facility] Comment on above: Performed By: #### L 100.0100, L500.2500, L300.3900, L501.4021 ####[facility] [address] [place], [address] MCH (RBC) [Entitic mass] 31.9 pg Normal 27.0-32.0 [facility] Comment on above: Performed By: #### L 100.0100, L500.2500, L300.3900, L501.4021 ####[facility] [address] [place], [address] MCHC (RBC) [Mass/Vol] 33.4 g/dL Normal 32-36 [facility] Comment on above: Performed By: #### L 100.0100, L500.2500, L300.3900, L501.4021 ####[facility] [address] [place], [address] MCV (RBC) [Entitic vol] 95.3 fL Normal 81-99 [facility] Comment on above: Performed By: #### L 100.0100, L500.2500, L300.3900, L501.4021 ####[facility] [address] [place], [address] Monocytes/100 WBC (Bld) 9.2 % Normal 0-10 [facility] Comment on above: Performed By: #### L 100.0100, L500.2500, L300.3900, L501.4021 ####[facility] [address] [place], [address] Neutrophils/100 WBC (Bld) 55.3 % Normal 47-70 [facility] Comment on above: Performed By: #### L 100.0100, L500.2500, L300.3900, L501.4021 ####[facility] [address] [place], [address] Nucleated RBC (Bld) [#/Vol] 0 10*3/uL Normal 0-5 [facility] Comment on above: Performed By: #### L 100.0100, L500.2500, L300.3900, L501.4021 ####[facility] [address] [place], [address] Platelet mean volume (Bld) [Entitic vol] 10.0 fL Normal 6.2-12.0 [facility] Comment on above: Performed By: #### L 100.0100, L500.2500, L300.3900, L501.4021 ####[facility] [address] [place], [address] Platelets (Bld) [#/Vol] 222 10*3/uL Normal 150-450 [facility] Comment on above: Performed By: #### L 100.0100, L500.2500, L300.3900, L501.4021 ####[facility] [address] [place], [address] RBC (Bld) [#/Vol] 4.05 10*6/uL Low 4.2-5.4 [facility] Comment on above: Performed By: #### L 100.0100, L500.2500, L300.3900, L501.4021 ####[facility] [address] [place], [address] RDW SD 45.0 fl High 35.1-43.9 [facility] Comment on above: Performed By: #### L 100.0100, L500.2500, L300.3900, L501.4021 ####[facility] [address] [place], [address] WBC (Bld) [#/Vol] 4.4 10*3/uL Normal 4.4-11.0 [facility] Comment on above: Performed By: #### L 100.0100, L500.2500, L300.3900, L501.4021 ####[facility] [address] [place], [address] Chest 1 View (Portable)on Chest 1 View (Portable) [facility] Imaging Services [address] [place] [address] Chest 1 View (Portable) MR#: [id number] Acct: [id number] Name: ELIZABETH CHEATHAM Rep #: [id number] : 1935 F 89 From: Denilson Singh DO PCP: Dr. Luis M Lama DO Status: REG ER Study: Chest 1 View (Portable) Date of Exam: 10/19/24 Exam# [id number] Ordering Dr: Sampson Melendez MD PROCEDURE: CHEST 1 VIEW (PORTABLE) 10/19/2024 REASON FOR EXAM: CHEST PAIN TECHNIQUE: Frontal view of the chest. COMPARISON: 10/22/2022 FINDINGS: Hardware: None Heart: Normal size Lungs: Clear Bones: No aggressive features Other: RAD/Chest 1 View (Portable) IMPRESSION: Negative Reading Location: [facility] CC: Dr. Sampson Melendez MD; Dr. Luis M Lama DO Protection Specialist: Signed Normal [facility] Emergency Department Summary on 10-19-2024 Emergency Department Summary [facility] Medical Records Department [address] [place] [address] Emergency Department Summary 10/19/24 MR#: [id number] Acct: [id number] Name: ELIZABETH CHEATHAM Rep #: [id number] : 1935 89 From: Sampson Melendez MD [...] cardioverting herself. She was told by her algorithm developer, Dr. Martinez, about a year to a year and a half ago that if she went into atrial fibrillation again she should take Tikosyn 125 mg, and contact him. At around 6 AM, 2-1/2 hours ago, she awoke with not feeling right and discomfort in her chest. She denies any nausea or vomiting, no diaphoresis. Her [employer] mobile was not working so her daughter came over and stated that it said possible atrial fibrillation that was rate controlled. They called Dr. Arshad at [facility] after she had taken Tikosyn and was directed to come to the emergency department. 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 Normal [facility] L499.0042on 10-19-2024 Trop T High Sen 16 ng/L High <=14 [facility] Comment on above: Performed By: #### L 499.0042 ####[facility] [address] [place], [address] L499.0043on 10-19-2024 Trop T High Sen Normal <=14 [facility] Comment on above: Result Comment: [facility] DISCHARGED Performed By: #### L 499.0043 ####[facility] [address] [place], [address] L501.4021on 10-19-2024 Trop T High Sen 16 ng/L High <=14 [facility] Comment on above: Performed By: #### L 100.0100, L500.2500, L300.3900, L501.4021 ####[facility] [address] [place], [address] Prothrombin Time w/INRon INR Coag (PPP) [Relative time] 2.2 {INR} Normal [facility] Comment on above: Performed By: #### L 100.0100, L500.2500, L300.3900, L501.4021 ####[facility] [address] [place], [address] PT Coag (PPP) [Time] 24.5 s High 11.7-14.9 [facility] Comment on above: Performed By: #### L 100.0100, L500.2500, L300.3900, L501.4021 ####[facility] [address] [place], [address] Brain/Head W/WO Contraston 0 09-06-2024 Brain/Head W/WO Contrast [facility] Imaging Services [address] [place] [address] Brain/Head W/WO Contrast MR#: [id number] Acct: [id number] Name: ELIZABETH CHEATHAM Rep #: [id number] : 1935 F 89 From: Jonah villavicencio MD PCP: Dr. Luis M Lama DO Status: REG CLI Study: Brain/Head W/WO Contrast Date of Exam: Exam# [id number] Ordering Dr: Luis M Lama DO PROCEDURE: [...] abnormal parenchymal or leptomeningeal enhancement. Reading Location: [facility] CC: Dr. 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 Normal [facility] 12 Lead EKG performed by [facility] [place] on 07-04-2024 12 Lead EKG performed by [facility] [address] [facility] [place] [address] 12 Lead EKG performed by [facility] [place] 07/04/24812 MR#: [id number] Acct: [id number] Name: ELIZABETH CHEATHAM Rep #: [id number] : 1935 89 From: Courtney Vergara Attending Dr: VICTOR M Garcia Status: DEP AMB Ordering Dr: Courtney Perales Date: 06/09 11/29 [place] [facility] [place] Sex: F C Admitted: BMS/12 Lead EKG performed by [facility] [place] ECG Report Interpretation --Atrial flutter-fibrillation -Nonspecific QRS widening and anterior fascicular block. -Old anteroseptal infarct. ABNORMAL Electronically signed on 07/08/2024 at 14:02 by Clement Luna [employer] Version [id number] 07/08/24 1406 Date Courtney DOW CC: Dr. Luis M Lama, Date Dictated: 07/04/24812 Date Transcribed: 07/04/24812 Protection Specialist: ADAMARIS Signed Normal [facility] Cardiology Visit Reporton Cardiology Visit Report [facility] [address] [place] [address] OFFICE VISIT Date of Service: 07/04/24 MR#: [id number] Acct: [id number] Name: ELIZABETH CHEATHAM Rep #: [id number] : 1935 Provider: VICTOR M Gifford Age/Sex: 89/F [place] [facility] [place] Status: Signed HPI HPI History of Present Illness Details: Ms. Cheatham, a 89 year old lady comes in today with her . She carries a history of paroxysmal atrial fibrillation status post radiofrequency ablation in 2018 at the [facility]. The patient has been hospitalized at [facility] will be loaded her with Tikosyn. 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 Normal [facility] L3410.9999on [facility] Normal . [facility] Comment on above: Order Comment: [id number] [id number] PROINSULIN SER/FZ Result Comment: Test Ordered: [id number] Proinsulin Proinsulin 6.0 pmol/L Reference Range: 0.0-10.0 Performed at: - [address] [id number] Rn Patient Care: Brian Hinson MD, Phone: [phone] Performed at: [facility] [employer] [id number] Rn Patient Care: Quinn Bennett PhD, Phone: [phone] Performed By: #### L 3410.9999 #### [facility] Laboratory [address] [place], [address] L3410.9999on 05-24-2024 [facility] COM[facility] Normal . [facility] Comment on above: Order Comment: SER/F [id number] HYDROXYBUTYRATE Result Comment: Test Ordered: [id number] Beta-Hydroxybutyrate Beta-Hydroxybutyrate 1.2 mg/dL ES Reference Range: . Reference Range: All Ages (fasting): 0.2 - 2.8 Performed at: [employer] [address] [place] [id number] Rn Patient Care: Oh Aguillon MD, Phone: [phone] Performed at: [address] [id number] Rn Patient Care: Quinn Bennett PhD, Phone: [phone] Performed By: #### L 501.9985, L400, L3410.9999, L3100.7750, L3300.3500, L300.3900, L501.9520, L509.6000, L3300.6400, M100.2200 ####[facility] [address] [place], [place], [address] Urine Cultureon 05-23-2024 URC ADD ON CUUR #1 Below infection level. Presumptive E. coli [place] Count 1000-10,000 Mixed Gram Positive Organisms Mixed Gram Positive Organisms MIXC Mixed contaminants. Submit a new specimen if indicated. Normal [facility] Comment on above: Performed By: #### L 501.9985, L4, L3410.9999, L3100.7750, L3300.3500, L300.3900, L501.9520, L509.6000, L3300.6400, M100.2200 ####[facility] [address] [facility] [place], [address] C-Peptideon 05-22-2024 C PEPTIDE 2.6 ng/mL Normal 1.1-4.4 [facility] Comment on above: Result Comment: C-Pe ptide reference interval is for fasting patients. Performed By: #### L 501.9985, L4, L3410.9999, L3100.7750, L3300.3500, L300.3900, L501.9520, L509.6000, L3300.6400, M100.2200 ####[facility] [address] [place], [address] Insulin Levelon 05-22-2024 INSULIN,FASTING 4.8 uIU/mL Normal 2.6-24.9 [facility] Comment on above: Result Comment: Perf ormed at: [facility] [address] [id number] Rn Patient Care: Quinn Bennett PhD, Phone: [phone] Performed By: #### L 501.9985, L4, L3410.9999, L3100.7750, L3300.3500, L300.3900, L501.9520, L509.6000, L3300.6400, M100.2200 ####[facility] [address] [place], [address] Prealbumin [id number] Prealbumin [Mass/Vol] 24 mg/dL Normal 9-32 [facility] Comment on above: Result Comment: Perf ormed at: - [facility] [address] [id number] Rn Patient Care: Quinn Bennett PhD, Phone: [phone] Performed By: #### L 501.9985, , L3410.9999, L3100.7750, L3300.3500, L300.3900, L501.9520, L509.6000, L3300.6400, M100.2200 ####[facility] [address] [place], [place], [phone] CORTISOL SERUMon 05-20-2024 CORTISOL 13.20 ug/dL Normal 3.44-22.45 [facility] Comment on above: Result Comment: Adul t (AM) 5.27 - 22.45 ug/dL Adult (PM) 3.44 - 16.76 ug/dL Performed By: #### L 501.9985, L4, L3410.9999, L3100.7750, L3300.3500, L300.3900, L501.9520, L509.6000, L3300.6400, M100.2200 #### [facility] [address] [place], [place], [address] Hemoglobin A1con 05-20-2024 HbA1c (Bld) [Mass fraction] 5.5 % Normal 3.8-5.6 [facility] Comment on above: Result Comment: Norm al < 5.7 % Prediabetic 5.7 - 6.4 % Diabetic >or= 6.5 % Please note range changes. Performed By: #### L 501.9985, L400.2010, L3410.9999, L3100.7750, L3300.3500, L300.3900, L501.9520, L509.6000, L3300.6400, M100.2200 #### [facility] [address] [place], [address] Prothrombin Time w/INRon INR Coag (PPP) [Relative time] 2.6 {INR} Normal [facility] Comment on above: Performed By: #### L 501.9985, L400, L3410.9999, L3100.7750, L3300.3500, L300.3900, L501.9520, L509.6000, L3300.6400, M100.2200 #### [facility] [address] [place], [address] PT Coag (PPP) [Time] 28.1 s High 11.7-14.9 [facility] Comment on above: Performed By: #### L 501.9985, L4, L3410.9999, L3100.7750, L3300.3500, L300.3900, L501.9520, L509.6000, L3300.6400, M100.2200 #### [facility] [address] [place], [address] Thyroid Stim Hormone (TSH)on 05-20-2024 TSH 3.990 uIU/mL High 0.358-3.740 [facility] Comment on above: Order Comment: COPY OF PT/INR TO DR. GURDEEP MARTINEZ Performed By: #### L 501.9985, L400, L3410.9999, L3100.7750, L3300.3500, L300.3900, L501.9520, L509.6000, L3300.6400, M100.2200 #### [facility] [address] [place], [place], [id number] Urinalysis, Routine (Dipstic k)on 05-20-2024 BILIRUBIN URINE Negative Normal Negative [facility] Comment on above: Order Comment: CLEAN CATCH Performed By: #### L 501.9985, L400.2010, L3410.9999, L3100.7750, L3300.3500, L300.3900, L501.9520, L509.6000, L3300.6400, M100.2200 #### [facility] [address] [place], [address] Clarity (U) Clear Normal Clear [facility] Comment on above: Order Comment: CLEAN CATCH Performed By: #### L 501.9985, L400.2010, L3410.9999, L3100.7750, L3300.3500, L300.3900, L501.9520, L509.6000, L3300.6400, M100.2200 #### [facility] [address] [place], [place], [phone] (825) Color (U) Yellow Normal Yellow [facility] Comment on above: Order Comment: CLEAN CATCH Performed By: #### L 501.9985, L4.2010, L3410.9999, L3100.7750, L3300.3500, L300.3900, L501.9520, L509.6000, L3300.6400, M100.2200 #### [facility] [address] [place], [place], [phone] (041) GLUCOSE, UR Normal Normal Normal [facility] Comment on above: Order Comment: CLEAN CATCH Performed By: #### L 501.9985, L4, L3410.9999, L3100.7750, L3300.3500, L300.3900, L501.9520, L509.6000, L3300.6400, M100.2200 #### [facility] [address] [place], [address] KETONE UR Negative Normal Negative [facility] Comment on above: Order Comment: CLEAN CATCH Performed By: #### L 501.9985, L4.2010, L3410.9999, L3100.7750, L3300.3500, L300.3900, L501.9520, L509.6000, L3300.6400, M100.2200 #### [facility] [address] [place], [address] LEUK ESTERASE 500 /ul Abnormal Negative [facility] Comment on above: Order Comment: CLEAN CATCH Performed By: #### L 501.9985, L4, L3410.9999, L3100.7750, L3300.3500, L300.3900, L501.9520, L509.6000, L3300.6400, M100.2200 #### [facility] [address] [place], [address] Nitrite Ql (U) Negative Normal Negative [facility] Comment on above: Order Comment: CLEAN CATCH Performed By: #### L 501.99, , L3410.9999, L3100.7750, L3300.3500, L300.3900, L501.9520, L509.6000, L3300.6400, M100.2200 #### [facility] [address] [place], [address] OCCULT BLOOD-UR 10 /ul Abnormal Negative [facility] Comment on above: Order Comment: CLEAN CATCH Performed By: #### L 501.9985, , L3410.9999, L3100.7750, L3300.3500, L300.3900, L501.9520, L509.6000, L3300.6400, M100.2200 #### [facility] [address] [place], [address] pH UR 7.0 Normal 5.0 - 8.0 [facility] Comment on above: Order Comment: CLEAN CATCH Performed By: #### L 501.9985, , L3410.9999, L3100.7750, L3300.3500, L300.3900, L501.9520, L509.6000, L3300.6400, M100.2200 #### [facility] [address] [place], [address] PROT DIPSTX Negative Normal Negative [facility] Comment on above: Order Comment: CLEAN CATCH Performed By: #### L 501.9985, L400.2010, L3410.9999, L3100.7750, L3300.3500, L300.3900, L501.9520, L509.6000, L3300.6400, M100.2200 #### [facility] [address] [place], [address] SP.GR. DIPSTX 1.010 Normal 1.002-1.030 [facility] Comment on above: Order Comment: CLEAN CATCH Performed By: #### L 501.9985, L4.2010, L3410.9999, L3100.7750, L3300.3500, L300.3900, L501.9520, L509.6000, L3300.6400, M100.2200 #### [facility] [address] [place], [address] UROBILI Normal Normal Normal [facility] Comment on above: Order Comment: CLEAN CATCH Performed By: #### L 501.9985, L4.2010, L3410.9999, L3100.7750, L3300.3500, L300.3900, L501.9520, L509.6000, L3300.6400, M100.2200 #### [facility] [address] [place], [address] Prothrombin Time w/INRon INR Coag (PPP) [Relative time] 2.9 {INR} Normal [facility] Comment on above: Performed By: #### L 300.3900 ####[facility] [address] [place], [address] PT Coag (PPP) [Time] 30.0 s High 11.7-14.9 [facility] Comment on above: Performed By: #### L 300.3900 ####[facility] [address] [place], [address] CBC W/Diff, Automatedon 11-2 0-2024 Absolute Lymph 1.53 X10 3/uL Normal 0.83-4.51 [facility] Comment on above: Performed By: #### L 300.3900, L501.9520, L506.0400, L500.4100, L100.0100, L500.4050 ####[facility] [address] [place], [address] Absolute Neut 2.3 X10 3/uL Normal 2.0-7.7 [facility] Comment on above: Performed By: #### L 300.3900, L501.9520, L506.0400, L500.4100, L100.0100, L500.4050 ####[facility] [address] [place], [address] Basophils/100 WBC (Bld) 0.5 % Normal 0-1 [facility] Comment on above: Performed By: #### L 300.3900, L501.9520, L506.0400, L500.4100, L100.0100, L500.4050 ####[facility] [address] [place], [address] Eosinophils/100 WBC (Bld) 0.7 % Normal 0-5 [facility] Comment on above: Performed By: #### L 300.3900, L501.9520, L506.0400, L500.4100, L100.0100, L500.4050 ####[facility] [address] [place], [address] Erythrocyte distribution width (RBC) [Ratio] 13.0 % Normal 11.6-14.6 [facility] Comment on above: Performed By: #### L 300.3900, L501.9520, L506.0400, L500.4100, L100.0100, L500.4050 ####[facility] [address] [place], [address] Hematocrit (Bld) [Volume fraction] 36.7 % Low 37-47 [facility] Comment on above: Performed By: #### L 300.3900, L501.9520, L506.0400, L500.4100, L100.0100, L500.4050 ####[facility] [address] [place], [address] Hemoglobin (Bld) [Mass/Vol] 12.0 g/dL Normal 12.0-15.0 [facility] Comment on above: Performed By: #### L 300.3900, L501.9520, L506.0400, L500.4100, L100.0100, L500.4050 ####[facility] [address] [place], [address] IG% 0.200 Normal 0.0-0.9 [facility] Comment on above: Result Comment: IG% - Immature Granulocytes (promyelocytes, myelocytes and metamyelocytes) > 1% indicates that a LEFT SHIFT is Present. Performed By: #### L 300.3900, L501.9520, L506.0400, L500.4100, L100.0100, L500.4050 ####[facility] [address] [place], [address] Lymphocytes/100 WBC (Bld) 36.3 % Normal 19-41 [facility] Comment on above: Performed By: #### L 300.3900, L501.9520, L506.0400, L500.4100, L100.0100, L500.4050 ####[facility] [address] [place], [address] MCH (RBC) [Entitic mass] 31.4 pg Normal 27.0-32.0 [facility] Comment on above: Performed By: #### L 300.3900, L501.9520, L506.0400, L500.4100, L100.0100, L500.4050 ####[facility] [address] [place], [address] MCHC (RBC) [Mass/Vol] 32.7 g/dL Normal 32-36 [facility] Comment on above: Performed By: #### L 300.3900, L501.9520, L506.0400, L500.4100, L100.0100, L500.4050 ####[facility] [address] [place], [address] MCV (RBC) [Entitic vol] 96.1 fL Normal 81-99 [facility] Comment on above: Performed By: #### L 300.3900, L501.9520, L506.0400, L500.4100, L100.0100, L500.4050 ####[facility] [address] [place], [address] Monocytes/100 WBC (Bld) 8.1 % Normal 0-10 [facility] Comment on above: Performed By: #### L 300.3900, L501.9520, L506.0400, L500.4100, L100.0100, L500.4050 ####[facility] [address] [place], [address] Neutrophils/100 WBC (Bld) 54.2 % Normal 47-70 [facility] Comment on above: Performed By: #### L 300.3900, L501.9520, L506.0400, L500.4100, L100.0100, L500.4050 ####[facility] [address] [place], [address] Nucleated RBC (Bld) [#/Vol] 0 10*3/uL Normal 0-5 [facility] Comment on above: Performed By: #### L 300.3900, L501.9520, L506.0400, L500.4100, L100.0100, L500.4050 ####[facility] [address] [place], [address] Platelet mean volume (Bld) [Entitic vol] 10.5 fL Normal 6.2-12.0 [facility] Comment on above: Performed By: #### L 300.3900, L501.9520, L506.0400, L500.4100, L100.0100, L500.4050 ####[facility] [address] [place], [address] Platelets (Bld) [#/Vol] 202 10*3/uL Normal 150-450 [facility] Comment on above: Performed By: #### L 300.3900, L501.9520, L506.0400, L500.4100, L100.0100, L500.4050 ####[facility] [address] [place], [address] RBC (Bld) [#/Vol] 3.82 10*6/uL Low 4.2-5.4 [facility] Comment on above: Performed By: #### L 300.3900, L501.9520, L506.0400, L500.4100, L100.0100, L500.4050 ####[facility] [address] [place], [address] RDW SD 45.7 fl High 35.1-43.9 [facility] Comment on above: Performed By: #### L 300.3900, L501.9520, L506.0400, L500.4100, L100.0100, L500.4050 ####[facility] [address] [place], [address] WBC (Bld) [#/Vol] 4.2 10*3/uL Low 4.4-11.0 [facility] Comment on above: Performed By: #### L 300.3900, L501.9520, L506.0400, L500.4100, L100.0100, L500.4050 ####[facility] [address] [place], [address] Comprehensive Metabolic Prof ilon 03-27-2024 Albumin [Mass/Vol] 3.7 g/dL Normal 3.2-5.0 [facility] Comment on above: Order Comment: DR.KE DEJON PLAZA ORDERED PTINRDR.BAO ORDERED LIPID,TSH,T4F,CMP.CBCD Performed By: #### L 300.3900, L501.9520, L506.0400, L500.4100, L100.0100, L500.4050 ####[facility] [address] [place], [address] Albumin/Globulin [Mass ratio] 1.3 {ratio} Normal 0.9-2.4 [facility] Comment on above: Order Comment: DR.KE DEJON PLAZA ORDERED PTINRDR.BAO ORDERED LIPID,TSH,T4F,CMP.CBCD Performed By: #### L 300.3900, L501.9520, L506.0400, L500.4100, L100.0100, L500.4050 ####[facility] [address] [place], [address] ALK P 71 U/L Normal 45-117 [facility] Comment on above: Order Comment: DR.KE DEJON PLAZA ORDERED PTINRDR.BAO ORDERED LIPID,TSH,T4F,CMP.CBCD Performed By: #### L 300.3900, L501.9520, L506.0400, L500.4100, L100.0100, L500.4050 ####[facility] [address] [place], [address] ALT [Catalytic activity/Vol] 20 U/L Normal 13-56 [facility] Comment on above: Order Comment: DR.KE DEJON PLAZA ORDERED PTINRDR.BAO ORDERED LIPID,TSH,T4F,CMP.CBCD Performed By: #### L 300.3900, L501.9520, L506.0400, L500.4100, L100.0100, L500.4050 ####[facility] [address] [place], [address] AST [Catalytic activity/Vol] 19 U/L Normal 15-37 [facility] Comment on above: Order Comment: DR.KE DEJON PLAZA ORDERED PTINRDR.BAO ORDERED LIPID,TSH,T4F,CMP.CBCD Performed By: #### L 300.3900, L501.9520, L506.0400, L500.4100, L100.0100, L500.4050 ####[facility] [address] [place], [address] Bilirubin [Mass/Vol] 0.40 mg/dL Normal 0.20-1.00 [facility] Comment on above: Order Comment: DR.KE DEJON PLAZA ORDERED PTINRDR.BAO ORDERED LIPID,TSH,T4F,CMP.CBCD Result Comment: For patients on eltrombopag therapy, use of Dimension Slaughters TBIL is not recommended. Performed By: #### L 300.3900, L501.9520, L506.0400, L500.4100, L100.0100, L500.4050 ####[facility] [address] [place], [address] BUN/CRE 19.2 RATIO Normal 10-20 [facility] Comment on above: Order Comment: DR.KE DEJON PLAZA ORDERED PTINRDR.BAO ORDERED LIPID,TSH,T4F,CMP.CBCD Performed By: #### L 300.3900, L501.9520, L506.0400, L500.4100, L100.0100, L500.4050 ####[facility] [address] [place], [address] CA,Total 9.3 mg/dL Normal 8.5-10.1 [facility] Comment on above: Order Comment: DR.KE DEJON PLAZA ORDERED PTINRDR.BAO ORDERED LIPID,TSH,T4F,CMP.CBCD Performed By: #### L 300.3900, L501.9520, L506.0400, L500.4100, L100.0100, L500.4050 ####[facility] [address] [place], [address] Chloride [Moles/Vol] 106 mmol/L Normal 98-107 [facility] Comment on above: Order Comment: DR.KE DEJON PLAZA ORDERED PTINRDR.BAO ORDERED LIPID,TSH,T4F,CMP.CBCD Performed By: #### L 300.3900, L501.9520, L506.0400, L500.4100, L100.0100, L500.4050 ####[facility] [address] [place], [address] CO2 [Moles/Vol] 31.0 mmol/L Normal 21.0-32.0 [facility] Comment on above: Order Comment: DR.KE DEJON PLAZA ORDERED PTINRDR.BAO ORDERED LIPID,TSH,T4F,CMP.CBCD Performed By: #### L 300.3900, L501.9520, L506.0400, L500.4100, L100.0100, L500.4050 ####[facility] [address] [place], [address] Creatinine [Mass/Vol] 0.83 mg/dL Normal 0.55-1.02 [facility] Comment on above: Order Comment: DR.KE DEJON PLAZA ORDERED PTINRDR.BAO ORDERED LIPID,TSH,T4F,CMP.CBCD Result Comment: The validity of the calculated GFR GFRAA in patients over 70 years has not been determined. Clinical correlation is essential. Performed By: #### L 300.3900, L501.9520, L506.0400, L500.4100, L100.0100, L500.4050 ####[facility] [address] [place], [address] EST GFR - AA 83 mL/min Normal >60 [facility] Comment on above: Order Comment: DR.KE DEJON PLAZA ORDERED PTINRDR.BAO ORDERED LIPID,TSH,T4F,CMP.CBCD Result Comment: Afri can Iraqi GFR Calc Performed By: #### L 300.3900, L501.9520, L506.0400, L500.4100, L100.0100, L500.4050 ####[facility] [address] [place], [address] GAP 1 Low 5-15 [facility] Comment on above: Order Comment: DR.KE DEJON PLAZA ORDERED PTINRDR.BAO ORDERED LIPID,TSH,T4F,CMP.CBCD Performed By: #### L 300.3900, L501.9520, L506.0400, L500.4100, L100.0100, L500.4050 ####[facility] [address] [place], [address] GFR/1.73 sq M.predicted among non-blacks MDRD (S/P/Bld) [Vol rate/Area] 69 mL/min/{1.73_m2} Normal >60 [facility] Comment on above: Order Comment: DR.KE DEJON PLAZA ORDERED PTINRDR.BAO ORDERED LIPID,TSH,T4F,CMP.CBCD Result Comment: Non- GFR Calc Performed By: #### L 300.3900, L501.9520, L506.0400, L500.4100, L100.0100, L500.4050 ####[facility] [address] [place], [address] Globulin (S) [Mass/Vol] 2.9 g/dL Normal 2.2-4.2 [facility] Comment on above: Order Comment: DR.KE DEJON PLAZA ORDERED PTINRDR.BAO ORDERED LIPID,TSH,T4F,CMP.CBCD Performed By: #### L 300.3900, L501.9520, L506.0400, L500.4100, L100.0100, L500.4050 ####[facility] [address] [place], [address] Glucose [Mass/Vol] 86 mg/dL Normal 74-106 [facility] Comment on above: Order Comment: DR.KE DEJON PLAZA ORDERED PTINRDR.BAO ORDERED LIPID,TSH,T4F,CMP.CBCD Performed By: #### L 300.3900, L501.9520, L506.0400, L500.4100, L100.0100, L500.4050 ####[facility] [address] [place], [address] Potassium [Moles/Vol] 4.5 mmol/L Normal 3.5-5.1 [facility] Comment on above: Order Comment: DR.KE DEJON PLAZA ORDERED PTINRDR.BAO ORDERED LIPID,TSH,T4F,CMP.CBCD Performed By: #### L 300.3900, L501.9520, L506.0400, L500.4100, L100.0100, L500.4050 ####[facility] [address] [place], [address] Sodium [Moles/Vol] 138 mmol/L Normal 136-145 [facility] Comment on above: Order Comment: DR.KE DEJON PLAZA ORDERED PTINRDR.BAO ORDERED LIPID,TSH,T4F,CMP.CBCD Performed By: #### L 300.3900, L501.9520, L506.0400, L500.4100, L100.0100, L500.4050 ####[facility] [address] [place], [address] T PROT 6.6 g/dL Normal 6.4-8.2 [facility] Comment on above: Order Comment: DR.KE DEJON PLAZA ORDERED PTINRDR.BAO ORDERED LIPID,TSH,T4F,CMP.CBCD Performed By: #### L 300.3900, L501.9520, L506.0400, L500.4100, L100.0100, L500.4050 ####[facility] [address] [place], [address] Urea nitrogen [Mass/Vol] 16 mg/dL Normal 7-18 [facility] Comment on above: Order Comment: DR.KE DEJON PLAZA ORDERED PTINRDR.BAO ORDERED LIPID,TSH,T4F,CMP.CBCD Performed By: #### L 300.3900, L501.9520, L506.0400, L500.4100, L100.0100, L500.4050 ####[facility] [address] [place], [address] Lipid Profileon 03-27-2024 Cholesterol [Mass/Vol] 199 mg/dL Normal 200 [facility] Comment on above: Order Comment: DR.KE DEJON PLAZA ORDERED PTINRDR.BAO ORDERED LIPID,TSH,T4F,CMP.CBCD Result Comment: <200 mg/dL Desirable 200-240 mg/dL Borderline >240 mg/dL High Risk Performed By: #### L 300.3900, L501.9520, L506.0400, L500.4100, L100.0100, L500.4050 ####[facility] [address] [facility] [facility] [place], [address] Cholesterol in HDL [Mass/Vol] 67 mg/dL Normal [facility] Comment on above: Order Comment: DR.KE DEJON PLAZA ORDERED PTINRDR.BAO ORDERED LIPID,TSH,T4F,CMP.CBCD Result Comment: The drugs N-Acetylcysteine and Metamizole may falsely depress this assay. Reference Range HDL <40 mg/dL Low HDL Cholesterol HDL >or= 60 mg/dL High HDL Cholesterol Performed By: #### L 300.3900, L501.9520, L506.0400, L500.4100, L100.0100, L500.4050 ####[facility] [address] [place], [address] Cholesterol in LDL [Mass/Vol] 114 mg/dL Normal 0-130 [facility] Comment on above: Order Comment: DR.KE DEJON PLAZA ORDERED PTINRDR.BAO ORDERED LIPID,TSH,T4F,CMP.CBCD Performed By: #### L 300.3900, L501.9520, L506.0400, L500.4100, L100.0100, L500.4050 ####[facility] [address] [place], [address] Cholesterol in VLDL [Mass/Vol] 18 mg/dL Normal 5-40 [facility] Comment on above: Order Comment: DR.KE DEJON PLAZA ORDERED PTINRDR.MONIQUETZJEN ORDERED LIPID,TSH,T4F,CMP.CBCD Performed By: #### L 300.3900, L501.9520, L506.0400, L500.4100, L100.0100, L500.4050 ####[facility] [address] [place], [address] Triglyceride [Mass/Vol] 91 mg/dL Normal [facility] Comment on above: Order Comment: DR.KE DEJON PLAZA ORDERED PTINRDR.BAO ORDERED LIPID,TSH,T4F,CMP.CBCD Result Comment: The drugs N-Acetylcysteine and Metamizole may falsely depress this assay. Serum Triglycerides Reference Interval Normal <150 mg/dL Borderline high 150 - 199 mg/dL High 200 - 499 mg/dL Very High > or = 500 mg/dL Performed By: #### L 300.3900, L501.9520, L506.0400, L500.4100, L100.0100, L500.4050 ####[facility] [id number] [place], [address] Prothrombin Time w/INRon INR Coag (PPP) [Relative time] 2.3 {INR} Normal [facility] Comment on above: Performed By: #### L 300.3900, L501.9520, L506.0400, L500.4100, L100.0100, L500.4050 ####[facility] [address] [place], [address] PT Coag (PPP) [Time] 25.3 s High 11.7-14.9 [facility] Comment on above: Performed By: #### L 300.3900, L501.9520, L506.0400, L500.4100, L100.0100, L500.4050 ####[facility] [address] [place], [address] T4 Free Directon 03-27-2024 T4 FREE DIRECT 1.20 ng/dL Normal 0.76-1.46 [facility] Comment on above: Order Comment: DR.KE DEJON PLAZA ORDERED PTINRDR.BAO ORDERED LIPID,TSH,T4F,CMP.CBCD Performed By: #### L 300.3900, L501.9520, L506.0400, L500.4100, L100.0100, L500.4050 ####[facility] [id number] [place], [address] Thyroid Stim Hormone (TSH)on 03-27-2024 TSH 3.100 uIU/mL Normal 0.358-3.740 [facility] Comment on above: Order Comment: DR.KE DEJON PLAZA ORDERED PTINRDR.BAO ORDERED LIPID,TSH,T4F,CMP.CBCD Performed By: #### L 300.3900, L501.9520, L506.0400, L500.4100, L100.0100, L500.4050 ####[facility] [address] [place], [address] Laboratory - CoagulationOrde red By: Shawna Plaza on 09-04-2023 INR Coag (Bld) [Relative time] 1.5 {INR} [facility] PT Coag (PPP) [Time] 18.4 s 11.7-14.9 [facility] Basophil percentageOrdered B y: Luis M Lama on 08-16-2023 Hemoglobin (Bld) [Mass/Vol] 10.9 g/dL 12.0-15.0 [facility] Laboratory - CoagulationOrde red By: Shawna Plaza on 07-31-2023 INR Coag (Bld) [Relative time] 2.1 {INR} [facility] PT Coag (PPP) [Time] 23.1 s 11.7-14.9 [facility] Whole blood hemoglobin A1c/t otal hemoglobin ratio (mass fraction)Ordered By: Shawna Plaza on 07-31-2023 HbA1c (Bld) [Mass fraction] 5.3 % 3.8-5.6 [facility] Comment on above: Normal < 5.7 % Predi abetic 5.7 - 6.4 % Diabetic >or= 6.5 % Please note range changes. Absolute lymphocyte countOrd ered By: Hung Keyes on 07-03-2023 Lymphocytes Auto (Unsp spec) [#/Vol] 1.26 10*3/uL 0.83-4.51 [facility] Automated lymphocyte count a s percentage of total leukocytesOrdered By: Hung Keyes on 07-03-2023 Lymphocytes/100 WBC Auto (Unsp spec) 28.1 % 19-41 [facility] Basophil percentageOrdered B y: Hung Keyes on 07-03-2023 Basophils/100 WBC (Bld) 0.9 % 0-1 [facility] Eosinophils/100 WBC (Bld) 1.8 % 0-5 [facility] Hemoglobin (Bld) [Mass/Vol] 11.2 g/dL 12.0-15.0 [facility] Monocytes/100 WBC (Bld) 10.0 % 0-10 [facility] Neutrophils (Bld) [#/Vol] 2.6 10*3/uL 2.0-7.7 [facility] Neutrophils/100 WBC (Bld) 59.0 % 47-70 [facility] WBC (Bld) [#/Vol] 4.5 10*3/uL 4.4-11.0 [facility] Determination of erythrocyte mean corpuscular volume (MCV)Ordered By: Hung Keyes on 07-03-2023 MCV (RBC) [Entitic vol] 98.3 fL 81-99 [facility] Erythrocyte distribution wid th ratioOrdered By: Hung Keyes on 07-03-2023 Erythrocyte distribution width (RBC) [Ratio] 13.2 % 11.6-14.6 [facility] Erythrocyte distribution wid th standard deviationOrdered By: Hung Keyes on 07-03-2023 Erythrocyte distribution width (RBC) [Entitic vol] 47.2 fL 35.1-43.9 [facility] Hematocrit Auto (Bld) [Volum e fraction]Ordered By: Hung Keyes on 07-03-2023 Hematocrit (Bld) [Volume fraction] 35.3 % 37-47 [facility] Immature granulocytes/100 WB C Auto (Bld)Ordered By: Hung Keyes on 07-03-2023 Immature granulocytes/100 WBC (Bld) 0.200 % 0.0-0.9 [facility] Comment on above: IG% - Immature Granu locytes (promyelocytes, myelocytes and metamyelocytes) > 1% indicates that a LEFT SHIFT is Present. Laboratory - CoagulationOrde red By: Hung Keyes on 07-03-2023 INR Coag (Bld) [Relative time] 3.4 {INR} [facility] PT Coag (PPP) [Time] 34.0 s 11.7-14.9 [facility] Laboratory - Hematology and Cell countsOrdered By: Hung Keyes on 07-03-2023 MCH (RBC) [Entitic mass] 31.2 pg 27.0-32.0 [facility] MCHC (RBC) [Mass/Vol] 31.7 g/dL 32-36 [facility] Nucleated RBC/100 WBC (Bld) [Ratio] 0 % 0-5 [facility] Platelet mean volume (Bld) [Entitic vol] 10.5 fL 6.2-12.0 [facility] Platelets (Bld) [#/Vol] 207 10*3/uL 150-450 [facility] RBC Auto (Bld) [#/Vol]Ordere d By: Hung Wali on 07-03-2023 RBC (Bld) [#/Vol] 3.59 10*6/uL 4.2-5.4 [facility] Absolute lymphocyte countOrd ered By: Gurdeep Martinez on 05-31-2023 Lymphocytes Auto (Unsp spec) [#/Vol] 1.27 10*3/uL 0.83-4.51 [facility] Automated lymphocyte count a s percentage of total leukocytesOrdered By: Gurdeep Martinez on 05-31-2023 Lymphocytes/100 WBC Auto (Unsp spec) 23.2 % 19-41 [facility] Basophil percentageOrdered B y: Gurdeep Martinez on 05-31-2023 Basophils/100 WBC (Bld) 0.5 % 0-1 [facility] Eosinophils/100 WBC (Bld) 1.3 % 0-5 [facility] Hemoglobin (Bld) [Mass/Vol] 11.3 g/dL 12.0-15.0 [facility] Monocytes/100 WBC (Bld) 9.5 % 0-10 [facility] Neutrophils (Bld) [#/Vol] 3.6 10*3/uL 2.0-7.7 [facility] Neutrophils/100 WBC (Bld) 65.1 % 47-70 [facility] WBC (Bld) [#/Vol] 5.5 10*3/uL 4.4-11.0 [facility] Bilirubin [Mass/Vol] 0.40 mg/dL 0.20-1.00 [facility] Comment on above: For patients on eltr ombopag therapy, use of Dimension Slaughters TBIL is not recommended. Chloride [Moles/Vol] 106 mmol/L 98-107 [facility] Cholesterol [Mass/Vol] 167 mg/dL <200 [facility] Comment on above: <200 mg/dL Desirable 200-240 mg/dL Borderline >240 mg/dL High Risk Glucose [Mass/Vol] 89 mg/dL 74-106 [facility] Potassium [Moles/Vol] 4.6 mmol/L 3.5-5.1 [facility] Protein [Mass/Vol] 6.9 g/dL 6.4-8.2 [facility] Sodium [Moles/Vol] 138 mmol/L 136-145 [facility] Triglyceride [Mass/Vol] 73 mg/dL <199 [facility] Comment on above: The drugs N-Acetylcy steine and Metamizole may falsely depress this assay.Serum Triglycerides Reference Interval Normal <150 mg/dL Borderline high 150 - 199 mg/dL High 200 - 499 mg/dL Very High > or = 500 mg/dL Determination of erythrocyte mean corpuscular volume (MCV)Ordered By: Gurdeep Martinez on 05-31-2023 MCV (RBC) [Entitic vol] 97.8 fL 81-99 [facility] Direct bilirubinOrdered By: Gurdeep Martinez on 05-31-2023 Bilirubin.direct [Mass/Vol] 0.13 mg/dL 0.00-0.30 [facility] Erythrocyte distribution wid th ratioOrdered By: Gurdeep Martinez on 05-31-2023 Erythrocyte distribution width (RBC) [Ratio] 13.0 % 11.6-14.6 [facility] Erythrocyte distribution wid th standard deviationOrdered By: Gurdeep Martinez on 05-31-2023 Erythrocyte distribution width (RBC) [Entitic vol] 46.7 fL 35.1-43.9 [facility] Hematocrit Auto (Bld) [Volum e fraction]Ordered By: Gurdeep Martinez on 05-31-2023 Hematocrit (Bld) [Volume fraction] 35.2 % 37-47 [facility] High density lipoprotein (HD L) measurementOrdered By: Gurdeep Martinez on 05-31-2023 Cholesterol in HDL (Body fld) [Mass/Vol] 63 mg/dL >40 [facility] Comment on above: The drugs N-Acetylcy steine and Metamizole may falsely depress this assay. Reference Range HDL <40 mg/dL Low HDL Cholesterol HDL >or= 60 mg/dL High HDL Cholesterol Immature granulocytes/100 WB C Auto (Bld)Ordered By: Gurdeep Martinez on 05-31-2023 Immature granulocytes/100 WBC (Bld) 0.400 % 0.0-0.9 [facility] Comment on above: IG% - Immature Granu locytes (promyelocytes, myelocytes and metamyelocytes) > 1% indicates that a LEFT SHIFT is Present. International normalized rat io (INR) calculationOrdered By: Gurdeep Martinez on 05-31-2023 INR Coag (PPP) [Relative time] 3.0 {INR} [facility] Laboratory - Chemistry and C hemistry - challengeOrdered By: Gurdeep Martinez on 05-31-2023 Albumin/Globulin [Mass ratio] 1.2 {ratio} 0.9-2.4 [facility] ALP [Catalytic activity/Vol] 82 U/L 45-117 [facility] ALT [Catalytic activity/Vol] 18 U/L 13-56 [facility] CO2 [Moles/Vol] 28.0 mmol/L 21.0-32.0 [facility] Globulin (S) [Mass/Vol] 3.2 g/dL 2.2-4.2 [facility] Urea nitrogen/Creatinine [Mass ratio] 25.2 mg/mg 10-20 [facility] Laboratory - CoagulationOrde red By: Gurdeep Martinez on 05-31-2023 PT Coag (PPP) [Time] 31.6 s 11.7-14.9 [facility] Laboratory - Hematology and Cell countsOrdered By: Gurdeep Martinez on 05-31-2023 MCH (RBC) [Entitic mass] 31.4 pg 27.0-32.0 [facility] MCHC (RBC) [Mass/Vol] 32.1 g/dL 32-36 [facility] Nucleated RBC/100 WBC (Bld) [Ratio] 0 % 0-5 [facility] Platelets (Bld) [#/Vol] 208 10*3/uL 150-450 [facility] Low density lipoprotein (LDL ) cholesterol measurementOrdered By: Gurdeep Martinez on 05-31-2023 Cholesterol in LDL (Body fld) [Moles/Vol] 89 mg/dL 0-130 [facility] No Panel InformationOrdered By: Gurdeep Martinez on 05-31-2023 Estimated GFR (MDRD) Amer 65 mL/min >60 [facility] Comment on above: GFR Calc Estimated GFR (MDRD) Non-Af Amer 54 mL/min >60 [facility] Comment on above: Non- GFR Calc Platelet mean volume Yair-Ec ker (Bld) [Entitic vol]Ordered By: Gurdeep Martinez on 05-31-2023 Platelet mean volume (Bld) [Entitic vol] 10.5 fL 6.2-12.0 [facility] RBC Auto (Bld) [#/Vol]Ordere d By: Gurdeep Martinez on 05-31-2023 RBC (Bld) [#/Vol] 3.60 10*6/uL 4.2-5.4 [facility] Serum or plasma calcium dimple urement (mass/volume)Ordered By: Gurdeep Martinez on 05-31-2023 Calcium [Mass/Vol] 9.4 mg/dL 8.5-10.1 [facility] Serum or plasma creatinine m easurement (mass/volume)Ordered By: Gurdeep Martinez on 05-31-2023 Creatinine [Mass/Vol] 1.03 mg/dL 0.55-1.02 [facility] Comment on above: The validity of the calculated GFR & GFRAA in patients over 70 years has not been determined. Clinical correlation is essential. Serum or plasma thyroid stim ulating hormone (TSH) measurement (units/volume)Ordered By: Gurdeep Martinez on 05-31-2023 TSH Qn 2.62 uIU/mL 0.358-3.74 [facility] Serum or plasma urea nitroge n measurement (mass/volume)Ordered By: Gurdeep Martinez on 05-31-2023 Urea nitrogen [Mass/Vol] 26 mg/dL 7-18 [facility] Thin prep Papanicolaou smear with manual screeningOrdered By: Gurdeep Martinez on 05-31-2023 Thin prep Papanicolaou smear with manual screening 3.7 g/dL 3.2-5.0 [facility] Thin prep Papanicolaou smear with manual screening 23 U/L 15-37 [facility] Thin prep Papanicolaou smear with manual screening 4 5-15 [facility] Thin prep Papanicolaou smear with manual screening 1.93 ng/dL 0.76-1.46 [facility] Very low density lipoprotein (VLDL) cholesterol measurementOrdered By: Gurdeep Martinez on 05-31-2023 Cholesterol in VLDL Calc [Moles/Vol] 15 mg/dL 5-40 [facility] Basophil percentageOrdered B y: Luis M Lama on 05-04-2023 LDH [Catalytic activity/Vol] 239 U/L 84-246 [facility] Iron measurement (mass/mass) Ordered By: Luis M Lama on 05-04-2023 Iron (Unsp spec) [Mass/Mass] 57 ug/dL 50-170 [facility] Laboratory - Chemistry and C hemistry - challengeOrdered By: Luis M Lama on 05-04-2023 Cobalamin (Vitamin B12) [Mass/Vol] 1022 pg/mL 211-911 [facility] Serum or plasma ferritin edith surement (mass/volume)Ordered By: Luis M Lama on 05-04-2023 Ferritin [Mass/Vol] 55 ng/mL 8-252 [facility] Absolute lymphocyte countOrd ered By: Shawna Plaza on 04-24-2023 Lymphocytes Auto (Unsp spec) [#/Vol] 1.25 10*3/uL 0.83-4.51 [facility] Basophil percentageOrdered B y: Shawna Plaza on 04-24-2023 Basophils/100 WBC (Bld) 0.8 % 0-1 [facility] Bilirubin [Mass/Vol] 0.30 mg/dL 0.20-1.00 [facility] Comment on above: For patients on eltr ombopag therapy, use of Dimension [employer] TBIL is not recommended. Chloride [Moles/Vol] 109 mmol/L 98-107 [facility] Cholesterol [Mass/Vol] 168 mg/dL <200 [facility] Comment on above: <200 mg/dL Desirable 200-240 mg/dL Borderline >240 mg/dL High Risk Eosinophils/100 WBC (Bld) 1.1 % 0-5 [facility] Glucose [Mass/Vol] 85 mg/dL 74-106 [facility] Neutrophils (Bld) [#/Vol] 2.0 10*3/uL 2.0-7.7 [facility] Neutrophils/100 WBC (Bld) 53.6 % 47-70 [facility] Potassium [Moles/Vol] 4.5 mmol/L 3.5-5.1 [facility] Protein [Mass/Vol] 6.4 g/dL 6.4-8.2 [facility] Sodium [Moles/Vol] 142 mmol/L 136-145 [facility] Triglyceride [Mass/Vol] 66 mg/dL <199 [facility] Comment on above: The drugs N-Acetylcy steine and Metamizole may falsely depress this assay.Serum Triglycerides Reference Interval Normal <150 mg/dL Borderline high 150 - 199 mg/dL High 200 - 499 mg/dL Very High > or = 500 mg/dL WBC (Bld) [#/Vol] 3.7 10*3/uL 4.4-11.0 [facility] Blood erythrocytes count (nu mber/volume)Ordered By: Shawna Plaza on 04-24-2023 RBC (Bld) [#/Vol] 3.34 10*6/uL 4.2-5.4 [facility] Blood hemoglobin measurement (mass/volume)Ordered By: Shawna Plaza on 04-24-2023 Hemoglobin (Bld) [Mass/Vol] 10.5 g/dL 12.0-15.0 [facility] Blood lymphocytes/100 leukoc ytesOrdered By: Shawna Plaza on 04-24-2023 Lymphocytes/100 WBC (Bld) 33.5 % 19-41 [facility] Blood monocytes/100 leukocyt esOrdered By: Shawna Plaza on 04-24-2023 Monocytes/100 WBC (Bld) 10.7 % 0-10 [facility] Blood platelet mean volumeOr dered By: Shawna Plaza on 04-24-2023 Platelet mean volume (Bld) [Entitic vol] 10.4 fL 6.2-12.0 [facility] Determination of erythrocyte mean corpuscular volume (MCV)Ordered By: Shawna Plaza on 04-24-2023 MCV (RBC) [Entitic vol] 100.9 fL 81-99 [facility] Direct bilirubinOrdered By: Shawna Plaza on 04-24-2023 Bilirubin.direct [Mass/Vol] 0.06 mg/dL 0.00-0.30 [facility] Hematocrit Auto (Bld) [Volum e fraction]Ordered By: Shawna Plaza on 04-24-2023 Hematocrit (Bld) [Volume fraction] 33.7 % 37-47 [facility] INR in Blood by Coagulation assayOrdered By: Shawna Plaza on 04-24-2023 INR Coag (Bld) [Relative time] 2.5 {INR} [facility] Laboratory - Chemistry and C hemistry - challengeOrdered By: Shawna Plaza on 04-24-2023 ALP [Catalytic activity/Vol] 70 U/L 45-117 [facility] ALT [Catalytic activity/Vol] 18 U/L 13-56 [facility] CO2 [Moles/Vol] 29.0 mmol/L 21.0-32.0 [facility] Free T4 [Mass/Vol] 1.54 ng/dL 0.76-1.46 [facility] Globulin (S) [Mass/Vol] 3.0 g/dL 2.2-4.2 [facility] Urea nitrogen/Creatinine [Mass ratio] 20.5 mg/mg 10-20 [facility] Laboratory - CoagulationOrde red By: Shawna Plaza on 04-24-2023 PT Coag (PPP) [Time] 27.3 s 11.7-14.9 [facility] Laboratory - Hematology and Cell countsOrdered By: Shawna Plaza on 04-24-2023 Erythrocyte distribution width (RBC) [Entitic vol] 50.0 fL 35.1-43.9 [facility] Erythrocyte distribution width (RBC) [Ratio] 13.4 % 11.6-14.6 [facility] Immature granulocytes/100 WBC (Bld) 0.300 % 0.0-0.9 [facility] Comment on above: IG% - Immature Granu locytes (promyelocytes, myelocytes and metamyelocytes) > 1% indicates that a LEFT SHIFT is Present. MCH (RBC) [Entitic mass] 31.4 pg 27.0-32.0 [facility] Nucleated RBC/100 WBC (Bld) [Ratio] 0 % 0-5 [facility] MCHC Auto (RBC) [Mass/Vol]Or dered By: Shawna Plaza on 04-24-2023 MCHC (RBC) [Mass/Vol] 31.2 g/dL 32-36 [facility] No Panel InformationOrdered By: Shawna Plaza on 04-24-2023 Estimated GFR (MDRD) Amer 59 mL/min >60 [facility] Comment on above: GFR Calc Estimated GFR (MDRD) Non-Af Amer 49 mL/min >60 [facility] Comment on above: Non- GFR Calc Thyroid Stimulating Hormone (TSH) 3.73 uIU/mL 0.358-3.74 [facility] Platelets bldOrdered By: Scottie Plaza on 04-24-2023 Platelets (Bld) [#/Vol] 214 10*3/uL 150-450 [facility] Serum or plasma albumin dimple urement (mass/volume)Ordered By: Shawna Plaza on 04-24-2023 Albumin [Mass/Vol] 3.4 g/dL 3.2-5.0 [facility] Serum or plasma albumin/glob ulin mass ratioOrdered By: Shawna Plaza on 04-24-2023 Albumin/Globulin [Mass ratio] 1.1 {ratio} 0.9-2.4 [facility] Serum or plasma calcium dimple urement (mass/volume)Ordered By: Shawna Plaza on 04-24-2023 Calcium [Mass/Vol] 8.4 mg/dL 8.5-10.1 [facility] Serum or plasma cholesterol in HDL measurement (mass/volume)Ordered By: Shawna Plaza on 04-24-2023 Cholesterol in HDL [Mass/Vol] 65 mg/dL >40 [facility] Comment on above: The drugs N-Acetylcy steine and Metamizole may falsely depress this assay. Reference Range HDL <40 mg/dL Low HDL Cholesterol HDL >or= 60 mg/dL High HDL Cholesterol Serum or plasma cholesterol in VLDL measurement (mass/volume)Ordered By: Shawna Plaza on 04-24-2023 Cholesterol in VLDL [Mass/Vol] 13 mg/dL 5-40 [facility] Serum or plasma creatinine m easurement (mass/volume)Ordered By: Shawna Plaza on 04-24-2023 Creatinine [Mass/Vol] 1.12 mg/dL 0.55-1.02 [facility] Comment on above: The validity of the calculated GFR & GFRAA in patients over 70 years has not been determined. Clinical correlation is essential. Serum or plasma low density lipoprotein (LDL) cholesterol measurement (mass/volume)Ordered By: Shawna Plaza on 04-24-2023 Cholesterol in LDL [Mass/Vol] 90 mg/dL 0-130 [facility] Serum or plasma urea nitroge n measurement (mass/volume)Ordered By: Shawna Plaza on 04-24-2023 Urea nitrogen [Mass/Vol] 23 mg/dL 7-18 [facility] Thin prep Papanicolaou smear with manual screeningOrdered By: Shawna Plaza on 04-24-2023 Thin prep Papanicolaou smear with manual screening 26 U/L 15-37 [facility] Thin prep Papanicolaou smear with manual screening 4 5-15 [facility] INR in Blood by Coagulation assayOrdered By: Shawna Plaza on 03-27-2023 INR Coag (Bld) [Relative time] 2.8 {INR} [facility] Laboratory - CoagulationOrde red By: Shawna Plaza on 03-27-2023 PT Coag (PPP) [Time] 29.5 s 11.7-14.9 [facility] INR in Blood by Coagulation assayOrdered By: Shawna Plaza on 02-27-2023 INR Coag (Bld) [Relative time] 2.6 {INR} [facility] Laboratory - CoagulationOrde red By: Shawna Plaza on 02-27-2023 PT Coag (PPP) [Time] 28.0 s 11.7-14.9 [facility] INR in Blood by Coagulation assayOrdered By: Shawna Plaza on 01-30-2023 INR Coag (Bld) [Relative time] 3.7 {INR} [facility] Laboratory - CoagulationOrde red By: Shawna Plaza on 01-30-2023 PT Coag (PPP) [Time] 37.1 s 11.7-14.9 [facility] INR in Blood by Coagulation assayOrdered By: Clement Luna on 01-02-2023 INR Coag (Bld) [Relative time] 2.8 {INR} [facility] Laboratory - CoagulationOrde red By: Clement Luna on 01-02-2023 PT Coag (PPP) [Time] 30.3 s 11.7-14.9 [facility] Culture, urineOrdered By: Julianna Lama on 12-29-2022 Bacteria identified Cx Nom (U) ESBL Escherichia coli [facility] Bacteria identified Cx Nom (U) ESBL Escherichia coli [facility] INR in Blood by Coagulation assayOrdered By: Sebastián Bolaños on 12-05-2022 INR Coag (Bld) [Relative time] 2.2 {INR} [facility] Laboratory - CoagulationOrde red By: Sebastián Bolaños on 12-05-2022 PT Coag (PPP) [Time] 24.4 s 11.7-14.9 [facility] [facility] INR in Blood by Coagulation assayOrdered By: Sebastián Bolaños on 11-21-2022 INR Coag (Bld) [Relative time] 2.1 {INR} [facility] Laboratory - CoagulationOrde red By: Sebastián Bolaños on 11-21-2022 PT Coag (PPP) [Time] 23.7 s 11.7-14.9 [facility] INR in Blood by Coagulation assayOrdered By: Sebastián Bolaños on 11-14-2022 INR Coag (Bld) [Relative time] 3.7 {INR} [facility] Laboratory - CoagulationOrde red By: Sebastián Bolaños on 11-14-2022 PT Coag (PPP) [Time] 37.2 s 11.7-14.9 [facility] Absolute lymphocyte countOrd ered By: Dr. Riley on 10-22-2022 Lymphocytes Auto (Unsp spec) [#/Vol] 1.42 10*3/uL 0.83-4.51 [facility] Basophil percentageOrdered B y: Dr. Riley on 10-22-2022 Basophils/100 WBC (Bld) 0.6 % 0-1 [facility] Chloride [Moles/Vol] 108 mmol/L 98-107 [facility] Eosinophils/100 WBC (Bld) 1.4 % 0-5 [facility] Glucose [Mass/Vol] 101 mg/dL 74-106 [facility] Comment on above: Fasting Glucose resu lt from 100 to 125 mg/dL suggests IMPAIRED HOMEOSTASIS per A.D.A. criteria. Neutrophils (Bld) [#/Vol] 3.0 10*3/uL 2.0-7.7 [facility] Neutrophils/100 WBC (Bld) 60.8 % 47-70 [facility] Potassium [Moles/Vol] 4.4 mmol/L 3.5-5.1 [facility] Sodium [Moles/Vol] 141 mmol/L 136-145 [facility] WBC (Bld) [#/Vol] 5.0 10*3/uL 4.4-11.0 [facility] Blood erythrocytes count (nu mber/volume)Ordered By: Dr. Riley on 10-22-2022 RBC (Bld) [#/Vol] 3.65 10*6/uL 4.2-5.4 [facility] Blood hemoglobin measurement (mass/volume)Ordered By: Dr. Riley on 10-22-2022 Hemoglobin (Bld) [Mass/Vol] 11.6 g/dL 12.0-15.0 [facility] Blood lymphocytes/100 leukoc ytesOrdered By: Dr. Riley on 10-22-2022 Lymphocytes/100 WBC (Bld) 28.7 % 19-41 [facility] Blood monocytes/100 leukocyt esOrdered By: Dr. Riley on 10-22-2022 Monocytes/100 WBC (Bld) 8.1 % 0-10 [facility] Blood platelet mean volumeOr dered By: Dr. Riley on 10-22-2022 Platelet mean volume (Bld) [Entitic vol] 9.8 fL 6.2-12.0 [facility] Determination of erythrocyte mean corpuscular volume (MCV)Ordered By: Dr. Riley on 10-22-2022 MCV (RBC) [Entitic vol] 97.0 fL 81-99 [facility] Hematocrit Auto (Bld) [Volum e fraction]Ordered By: Dr. Riley on 10-22-2022 Hematocrit (Bld) [Volume fraction] 35.4 % 37-47 [facility] INR in Blood by Coagulation assayOrdered By: Dr. Riley on 10-22-2022 INR Coag (Bld) [Relative time] 2.3 {INR} [facility] Laboratory - Chemistry and C hemistry - challengeOrdered By: Dr. Riley on 10-22-2022 CO2 [Moles/Vol] 31.0 mmol/L 21.0-32.0 [facility] Natriuretic peptide B (Bld) [Mass/Vol] 300.6 pg/mL 0-100 [facility] Urea nitrogen/Creatinine [Mass ratio] 27.2 mg/mg 10-20 [facility] Laboratory - CoagulationOrde red By: Dr. Riley on 10-22-2022 PT Coag (PPP) [Time] 25.9 s 11.7-14.9 [facility] Laboratory - Hematology and Cell countsOrdered By: Dr. Riley on 10-22-2022 Erythrocyte distribution width (RBC) [Entitic vol] 46.3 fL 35.1-43.9 [facility] Erythrocyte distribution width (RBC) [Ratio] 12.9 % 11.6-14.6 [facility] Immature granulocytes/100 WBC (Bld) 0.400 % 0.0-0.9 [facility] Comment on above: IG% - Immature Granu locytes (promyelocytes, myelocytes and metamyelocytes) > 1% indicates that a LEFT SHIFT is Present. MCH (RBC) [Entitic mass] 31.8 pg 27.0-32.0 [facility] Nucleated RBC/100 WBC (Bld) [Ratio] 0 % 0-5 [facility] MCHC Auto (RBC) [Mass/Vol]Or dered By: Dr. Riley on 10-22-2022 MCHC (RBC) [Mass/Vol] 32.8 g/dL 32-36 [facility] No Panel InformationOrdered By: Dr. Riley on 10-22-2022 Estimated Creatinine Clearance Calc 45.69 ml/min [facility] Estimated GFR (MDRD) Amer 87 mL/min >60 [facility] Comment on above: GFR Calc Estimated GFR (MDRD) Non-Af Amer 72 mL/min >60 [facility] Comment on above: Non- GFR Calc Troponin I High Sensitivity 9 pg/mL 3.0-54.0 [facility] Comment on above: Please Note: New Michelle t Units and Gender Specific Reference Ranges. For more information see Policy Stat Procedure Slaughters High Sensitivity Troponin (TNIH) and attachments. Platelets bldOrdered By: Dr. Riley on 10-22-2022 Platelets (Bld) [#/Vol] 200 10*3/uL 150-450 [facility] Serum or plasma calcium dimple urement (mass/volume)Ordered By: Dr. Riley on 10-22-2022 Calcium [Mass/Vol] 9.3 mg/dL 8.5-10.1 [facility] Serum or plasma creatinine m easurement (mass/volume)Ordered By: Dr. Riley on 10-22-2022 Creatinine [Mass/Vol] 0.81 mg/dL 0.55-1.02 [facility] Comment on above: The validity of the calculated GFR & GFRAA in patients over 70 years has not been determined. Clinical correlation is essential. Serum or plasma urea nitroge n measurement (mass/volume)Ordered By: Dr. Riley on 10-22-2022 Urea nitrogen [Mass/Vol] 22 mg/dL 7-18 [facility] Thin prep Papanicolaou smear with manual screeningOrdered By: Dr. Riley on 10-22-2022 Thin prep Papanicolaou smear with manual screening 2 5-15 [facility] Basophil percentageOrdered B y: Dr. Bolaños on 10-10-2022 Bilirubin [Mass/Vol] 0.40 mg/dL 0.20-1.00 [facility] Comment on above: For patients on eltr ombopag therapy, use of Dimension Slaughters TBIL is not recommended. Cholesterol [Mass/Vol] 153 mg/dL <200 [facility] Comment on above: <200 mg/dL Desirable 200-240 mg/dL Borderline >240 mg/dL High Risk Protein [Mass/Vol] 6.6 g/dL 6.4-8.2 [facility] Triglyceride [Mass/Vol] 88 mg/dL <199 [facility] Comment on above: The drugs N-Acetylcy steine and Metamizole may falsely depress this assay.Serum Triglycerides Reference Interval Normal <150 mg/dL Borderline high 150 - 199 mg/dL High 200 - 499 mg/dL Very High > or = 500 mg/dL Direct bilirubinOrdered By: Dr. Bolaños on 10-10-2022 Bilirubin.direct [Mass/Vol] 0.12 mg/dL 0.00-0.30 [facility] INR in Blood by Coagulation assayOrdered By: Dr. Bolaños on 10-10-2022 INR Coag (Bld) [Relative time] 1.9 {INR} [facility] Laboratory - Chemistry and C hemistry - challengeOrdered By: Dr. Bolaños on 10-10-2022 ALP [Catalytic activity/Vol] 81 U/L 45-117 [facility] ALT [Catalytic activity/Vol] 16 U/L 13-56 [facility] Globulin (S) [Mass/Vol] 3.1 g/dL 2.2-4.2 [facility] Laboratory - CoagulationOrde red By: Dr. Bolaños on 10-10-2022 PT Coag (PPP) [Time] 22.2 s 11.7-14.9 [facility] Serum or plasma albumin dimple urement (mass/volume)Ordered By: Dr. Bolaños on 10-10-2022 Albumin [Mass/Vol] 3.5 g/dL 3.2-5.0 [facility] Serum or plasma cholesterol in HDL measurement (mass/volume)Ordered By: Dr. Bolaños on 10-10-2022 Cholesterol in HDL [Mass/Vol] 54 mg/dL >40 [facility] Comment on above: The drugs N-Acetylcy steine and Metamizole may falsely depress this assay. Reference Range HDL <40 mg/dL Low HDL Cholesterol HDL >or= 60 mg/dL High HDL Cholesterol Serum or plasma cholesterol in VLDL measurement (mass/volume)Ordered By: Dr. Bolaños on 10-10-2022 Cholesterol in VLDL [Mass/Vol] 18 mg/dL 5-40 [facility] Serum or plasma low density lipoprotein (LDL) cholesterol measurement (mass/volume)Ordered By: Dr. Bolaños on 10-10-2022 Cholesterol in LDL [Mass/Vol] 81 mg/dL 0-130 [facility] Thin prep Papanicolaou smear with manual screeningOrdered By: Dr. Bolaños on 10-10-2022 Thin prep Papanicolaou smear with manual screening 17 U/L 15-37 [facility] Laboratory - CoagulationOrde red By: Dr. Bolaños on 09-12-2022 INR Coag (Bld) [Relative time] 2.0 {INR} [facility] Comment on above: Critical Value > 4.0 Whole blood prothrombin time Ordered By: Dr. Bolaños on 09-12-2022 PT Coag (Bld) [Time] 21.7 s 11.7-14.9 [facility] Basophil percentageOrdered B y: Courtney Perales on 08-22-2022 Chloride [Moles/Vol] 103 mmol/L 98-107 [facility] Glucose [Mass/Vol] 104 mg/dL 74-106 [facility] Comment on above: Fasting Glucose resu lt from 100 to 125 mg/dL suggests IMPAIRED HOMEOSTASIS per A.D.A. criteria. Potassium [Moles/Vol] 4.2 mmol/L 3.5-5.1 [facility] Sodium [Moles/Vol] 135 mmol/L 136-145 [facility] INR in Blood by Coagulation assayOrdered By: Courtney Perales on 08-22-2022 INR Coag (Bld) [Relative time] 2.5 {INR} [facility] Laboratory - Chemistry and C hemistry - challengeOrdered By: Courtney Perales on 08-22-2022 CO2 [Moles/Vol] 32.0 mmol/L 21.0-32.0 [facility] Urea nitrogen/Creatinine [Mass ratio] 24.3 mg/mg 10-20 [facility] Laboratory - CoagulationOrde red By: Courtney Perales on 08-22-2022 PT Coag (PPP) [Time] 26.8 s 11.7-14.9 [facility] No Panel InformationOrdered By: Courtney Perales on 08-22-2022 Estimated GFR (MDRD) Amer 69 mL/min >60 [facility] Comment on above: GFR Calc Estimated GFR (MDRD) Non-Af Amer 57 mL/min >60 [facility] Comment on above: Non- GFR Calc Serum or plasma calcium dimple urement (mass/volume)Ordered By: Courtney Perales on 08-22-2022 Calcium [Mass/Vol] 9.3 mg/dL 8.5-10.1 [facility] Serum or plasma creatinine m easurement (mass/volume)Ordered By: Courtney Preales on 08-22-2022 Creatinine [Mass/Vol] 0.99 mg/dL 0.55-1.02 [facility] Comment on above: The validity of the calculated GFR & GFRAA in patients over 70 years has not been determined. Clinical correlation is essential. Serum or plasma urea nitroge n measurement (mass/volume)Ordered By: Courtney Perales on 08-22-2022 Urea nitrogen [Mass/Vol] 24 mg/dL 7-18 [facility] Thin prep Papanicolaou smear with manual screeningOrdered By: Courtney Perales on 08-22-2022 Thin prep Papanicolaou smear with manual screening 0 5-15 [facility] Laboratory - CoagulationOrde red By: Shawna Plaza on 08-08-2022 INR Coag (Bld) [Relative time] 2.6 {INR} [facility] Comment on above: Critical Value > 4.0 Whole blood prothrombin time Ordered By: Shawna Plaza on 08-08-2022 PT Coag (Bld) [Time] 27.7 s 11.7-14.9 [facility] Laboratory - CoagulationOrde red By: Dr. Bolaños on 08-01-2022 INR Coag (Bld) [Relative time] 3.2 {INR} [facility] Comment on above: Critical Value > 4.0 Whole blood prothrombin time Ordered By: Dr. Bolaños on 08-01-2022 PT Coag (Bld) [Time] 34.2 s 11.7-14.9 [facility] Laboratory - CoagulationOrde red By: Dr. Bolaños on 07-25-2022 INR Coag (Bld) [Relative time] 3.4 {INR} [facility] Comment on above: Critical Value > 4.0 Whole blood prothrombin time Ordered By: Dr. Bolaños on 07-25-2022 PT Coag (Bld) [Time] 35.6 s 11.7-14.9 [facility] Laboratory - CoagulationOrde red By: Dr. Bolaños on 07-18-2022 INR Coag (Bld) [Relative time] 2.2 {INR} [facility] Comment on above: Critical Value > 4.0 Whole blood prothrombin time Ordered By: Dr. Bolaños on 07-18-2022 PT Coag (Bld) [Time] 26.1 s 11.7-14.9 [facility] Laboratory - Microbiology an d Antimicrobial susceptibilityon 06-27-2022 S. pyogenes Ag IA Ql (Unsp spec) Negative [facility] Basophil percentageOrdered B y: Dr. Bolaños on 04-11-2022 Bilirubin [Mass/Vol] 0.40 mg/dL 0.20-1.00 [facility] Comment on above: For patients on eltr ombopag therapy, use of Dimension [place] TBIL is not recommended. Cholesterol [Mass/Vol] 167 mg/dL <200 [facility] Comment on above: <200 mg/dL Desirable 200-240 mg/dL Borderline >240 mg/dL High Risk Protein [Mass/Vol] 6.6 g/dL 6.4-8.2 [facility] Triglyceride [Mass/Vol] 124 mg/dL <199 [facility] Comment on above: The drugs N-Acetylcy steine and Metamizole may falsely depress this assay.Serum Triglycerides Reference Interval Normal <150 mg/dL Borderline high 150 - 199 mg/dL High 200 - 499 mg/dL Very High > or = 500 mg/dL Direct bilirubinOrdered By: Dr. Boalños on 04-11-2022 Bilirubin.direct [Mass/Vol] 0.13 mg/dL 0.00-0.30 [facility] Laboratory - Chemistry and C hemistry - challengeOrdered By: Dr. Bolaños on 04-11-2022 ALP [Catalytic activity/Vol] 85 U/L 45-117 [facility] ALT [Catalytic activity/Vol] 23 U/L 13-56 [facility] Globulin (S) [Mass/Vol] 2.8 g/dL 2.2-4.2 [facility] Serum or plasma albumin dimple urement (mass/volume)Ordered By: Dr. Bolaños on 04-11-2022 Albumin [Mass/Vol] 3.8 g/dL 3.2-5.0 [facility] Serum or plasma cholesterol in HDL measurement (mass/volume)Ordered By: Dr. Bolaños on 04-11-2022 Cholesterol in HDL [Mass/Vol] 60 mg/dL >40 [facility] Comment on above: The drugs N-Acetylcy steine and Metamizole may falsely depress this assay. Reference Range HDL <40 mg/dL Low HDL Cholesterol HDL >or= 60 mg/dL High HDL Cholesterol Serum or plasma cholesterol in VLDL measurement (mass/volume)Ordered By: Dr. Bolaños on 04-11-2022 Cholesterol in VLDL [Mass/Vol] 25 mg/dL 5-40 [facility] Serum or plasma low density lipoprotein (LDL) cholesterol measurement (mass/volume)Ordered By: Dr. Bolaños on 04-11-2022 Cholesterol in LDL [Mass/Vol] 82 mg/dL 0-130 [facility] Thin prep Papanicolaou smear with manual screeningOrdered By: Dr. Bolaños on 04-11-2022 Thin prep Papanicolaou smear with manual screening 18 U/L 15-37 [facility] Stool gastrointestinal hemog lobin detection by immunologic methodOrdered By: Dr. Valerio on 04-05-2022 Lower GI hemoglobin IA Ql (Stl) [facility] Absolute lymphocyte counton 03-17-2022 Lymphocytes Auto (Unsp spec) [#/Vol] 1.81 10*3/uL 0.83-4.51 [facility] Work Phone: Basophil percentageon 2021 Basophils/100 WBC (Bld) 0.7 % 0-1 [facility] Work Phone: Chloride [Moles/Vol] 103 mmol/L 98-107 [facility] Work Phone: Eosinophils/100 WBC (Bld) 0.9 % 0-5 [facility] Work Phone: Glucose [Mass/Vol] 146 mg/dL 74-106 [facility] Work Phone: Comment on above: Fasting Glucose resu lt greater than or equal to 126 mg/dL suggests DIABETES MELLITUS per A.D.A. criteria. Neutrophils (Bld) [#/Vol] 2.2 10*3/uL 2.0-7.7 [facility] Work Phone: Neutrophils/100 WBC (Bld) 49.9 % 47-70 [facility] Work Phone: Potassium [Moles/Vol] 4.3 mmol/L 3.5-5.1 [facility] Work Phone: Sodium [Moles/Vol] 139 mmol/L 136-145 [facility] Work Phone: WBC (Bld) [#/Vol] 4.5 10*3/uL 4.4-11.0 [facility] Work Phone: Blood erythrocytes count (nu mber/volume)on 03-17-2022 RBC (Bld) [#/Vol] 3.52 10*6/uL 4.2-5.4 [facility] Work Phone: Blood hemoglobin measurement (mass/volume)on 03-17-2022 Hemoglobin (Bld) [Mass/Vol] 11.5 g/dL 12.0-15.0 [facility] Work Phone: Blood lymphocytes/100 leukoc yteson 03-17-2022 Lymphocytes/100 WBC (Bld) 40.3 % 19-41 [facility] Work Phone: Blood monocytes/100 leukocyt eson 03-17-2022 Monocytes/100 WBC (Bld) 8.0 % 0-10 [facility] Work Phone: Blood platelet mean volumeon 03-17-2022 Platelet mean volume (Bld) [Entitic vol] 10.3 fL 6.2-12.0 [facility] Work Phone: Determination of erythrocyte mean corpuscular volume (MCV)on 03-17-2022 MCV (RBC) [Entitic vol] 98.3 fL 81-99 [facility] Work Phone: Hematocrit Auto (Bld) [Volum e fraction]on 03-17-2022 Hematocrit (Bld) [Volume fraction] 34.6 % 37-47 [facility] Work Phone: Laboratory - Chemistry and C hemistry - challengeon 03-17-2022 CO2 [Moles/Vol] 29.0 mmol/L 21.0-32.0 [facility] Work Phone: Free T4 [Mass/Vol] 1.27 ng/dL 0.76-1.46 [facility] Work Phone: Urea nitrogen/Creatinine [Mass ratio] 25.6 mg/mg 10-20 [facility] Work Phone: Laboratory - Hematology and Cell countson 03-17-2022 Erythrocyte distribution width (RBC) [Entitic vol] 46.8 fL 35.1-43.9 [facility] Work Phone: Erythrocyte distribution width (RBC) [Ratio] 12.9 % 11.6-14.6 [facility] Work Phone: Immature granulocytes/100 WBC (Bld) 0.200 % 0.0-0.9 [facility] Work Phone: Comment on above: IG% - Immature Granu locytes (promyelocytes, myelocytes and metamyelocytes) > 1% indicates that a LEFT SHIFT is Present. MCH (RBC) [Entitic mass] 32.7 pg 27.0-32.0 [facility] Work Phone: Nucleated RBC/100 WBC (Bld) [Ratio] 0 % 0-5 [facility] Work Phone: [phone] MCHC Auto (RBC) [Mass/Vol]on 03-17-2022 MCHC (RBC) [Mass/Vol] 33.2 g/dL 32-36 [facility] Work Phone: No Panel Informationon 03-17 Estimated GFR (MDRD) Amer 77 mL/min >60 [facility] Work Phone: Comment on above: GFR Calc Estimated GFR (MDRD) Non-Af Amer 63 mL/min >60 [facility] Work Phone: Comment on above: Non- GFR Calc Thyroid Stimulating Hormone (TSH) 2.16 uIU/mL 0.358-3.74 [facility] Work Phone: Platelets bldon 03-17-2022 Platelets (Bld) [#/Vol] 227 10*3/uL 150-450 [facility] Work Phone: [phone] Serum or plasma calcium dimple urement (mass/volume)on 03-17-2022 Calcium [Mass/Vol] 9.3 mg/dL 8.5-10.1 [facility] Work Phone: [phone] Serum or plasma creatinine m easurement (mass/volume)on 03-17-2022 Creatinine [Mass/Vol] 0.90 mg/dL 0.55-1.02 [facility] Work Phone: [phone] Comment on above: The validity of the calculated GFR & GFRAA in patients over 70 years has not been determined. Clinical correlation is essential. Serum or plasma urea nitroge n measurement (mass/volume)on 03-17-2022 Urea nitrogen [Mass/Vol] 23 mg/dL 7-18 [facility] Work Phone: Thin prep Papanicolaou smear with manual screeningon 03-17-2022 Thin prep Papanicolaou smear with manual screening 7 5-15 [facility] Work Phone: Basophil percentageon 2021 Bilirubin [Mass/Vol] 0.30 mg/dL 0.20-1.00 [facility] Work Phone: Comment on above: For patients on eltr ombopag therapy, use of Dimension [place] TBIL is not recommended. Cholesterol [Mass/Vol] 158 mg/dL <200 [facility] Work Phone: Comment on above: <200 mg/dL Desirable 200-240 mg/dL Borderline >240 mg/dL High Risk Protein [Mass/Vol] 6.6 g/dL 6.4-8.2 [facility] Work Phone: Triglyceride [Mass/Vol] 79 mg/dL <199 [facility] Work Phone: Comment on above: The drugs N-Acetylcy steine and Metamizole may falsely depress this assay.Serum Triglycerides Reference Interval Normal <150 mg/dL Borderline high 150 - 199 mg/dL High 200 - 499 mg/dL Very High > or = 500 mg/dL Direct bilirubinon 2 Bilirubin.direct [Mass/Vol] 0.11 mg/dL 0.00-0.30 [facility] Work Phone: Laboratory - Chemistry and C hemistry - challengeon 10-22-2021 ALP [Catalytic activity/Vol] 79 U/L 45-117 [facility] Work Phone: ALT [Catalytic activity/Vol] 18 U/L 13-56 [facility] Work Phone: [phone] Globulin (S) [Mass/Vol] 2.9 g/dL 2.2-4.2 [facility] Work Phone: Serum or plasma albumin dimple urement (mass/volume)on 10-22-2021 Albumin [Mass/Vol] 3.7 g/dL 3.2-5.0 [facility] Work Phone: Serum or plasma cholesterol in HDL measurement (mass/volume)on 10-22-2021 Cholesterol in HDL [Mass/Vol] 51 mg/dL >40 [facility] Work Phone: Comment on above: The drugs N-Acetylcy steine and Metamizole may falsely depress this assay. Reference Range HDL <40 mg/dL Low HDL Cholesterol HDL >or= 60 mg/dL High HDL Cholesterol Serum or plasma cholesterol in VLDL measurement (mass/volume)on 10-22-2021 Cholesterol in VLDL [Mass/Vol] 16 mg/dL 5-40 [facility] Work Phone: Serum or plasma low density lipoprotein (LDL) cholesterol measurement (mass/volume)on 10-22-2021 Cholesterol in LDL [Mass/Vol] 91 mg/dL 0-130 [facility] Work Phone: Thin prep Papanicolaou smear with manual screeningon 10-22-2021 Thin prep Papanicolaou smear with manual screening 18 U/L 15-37 [facility] Work Phone: Stool gastrointestinal hemog lobin detection by immunologic method Lower GI hemoglobin IA Ql (Stl) [facility] Work Phone: Vital Signs Date Time Vital Sign Value Performing Clinician Faci isiahy 07-03-2023 09:15-0500 Body height 165.[address] Luis M Lama Work Phone: [facility] 07-03-2023 09:15-0500 Body mass index (BMI) [Ratio] 26.1 kg/m2 Dr. Luis M Lama Work Phone: [facility] [place] 07-03-2023 09:15-0500 Body weight 71.[address] Luis M Lama Work Phone: [facility] [place] 07-03-2023 09:15-0500 Diastolic blood pressure 55 mm[Hg] Dr. Luis M Lama Work Phone: [facility] [place] 07-03-2023 09:15-0500 Heart rate 36 /min Dr. Luis M Laam Work Phone: [facility] [place] 07-03-2023 09:15-0500 Respiratory rate 16 /min Dr. Luis M Lama Work Phone: [facility] [place] 07-03-2023 09:15-0500 Systolic blood pressure 121 mm[Hg] Dr. Luis M Lama Work Phone: [facility] [place] 05-31-2023 10:19-0500 Body height 165.[address] Luis M Lama Work Phone: [facility] [place] 05-31-2023 10:19-0500 Body mass index (BMI) [Ratio] 27.6 kg/m2 Dr. Luis M Lama Work Phone: [facility] [place] 05-31-2023 10:19-0500 Body weight 75.[address] Luis M Lama Work Phone: [facility] [place] 05-31-2023 10:19-0500 Diastolic blood pressure 64 mm[Hg] Dr. Luis M Lama Work Phone: [facility] [place] 05-31-2023 10:19-0500 Heart rate 44 /min Dr. Luis M Lama Work Phone: [facility] [place] 05-31-2023 10:19-0500 Respiratory rate 18 /min Dr. Luis M Lama Work Phone: [facility] [place] 05-31-2023 10:19-0500 Systolic blood pressure 126 mm[Hg] Dr. Luis M Lama Work Phone: [facility] [place] 03-24-2023 14:27-0500 Body height 165.[address] Luis M Lama Work Phone: [facility] [place] 03-24-2023 14:27-0500 Body mass index (BMI) [Ratio] 25.7 kg/m2 Dr. Luis M Lama Work Phone: [facility] [place] 03-24-2023 14:27-0500 Body temperature 98 [degF] Dr. Luis M Lama Work Phone: [facility] [place] 03-24-2023 14:27-0500 Body weight 70.[address] Luis M Lama Work Phone: [facility] [place] 03-24-2023 14:27-0500 Diastolic blood pressure 77 mm[Hg] Dr. Luis M Lama Work Phone: [facility] [place] 03-24-2023 14:27-0500 Heart rate 50 /min Dr. Luis M Lama Work Phone: [facility] [place] 03-24-2023 14:27-0500 Respiratory rate 18 /min Dr. Luis M Lama Work Phone: [facility] [place] 03-24-2023 14:27-0500 SaO2% (BldA) [Mass fraction] 99 % Dr. Luis M Lama Work Phone: [facility] [place] 03-24-2023 14:27-0500 Systolic blood pressure 147 mm[Hg] Dr. Luis M Lama Work Phone: [facility] [place] 12-23-2022 11:38-0400 Body temperature 98.5 [degF] Dr. Luis M Lama Work Phone: [facility] [place] 12-23-2022 11:38-0400 Diastolic blood pressure 80 mm[Hg] Dr. Luis M Lama Work Phone: [facility] [place] 12-23-2022 11:38-0400 Heart rate 50 /min Dr. Luis M Lama Work Phone: [facility] [place] 12-23-2022 11:38-0400 Respiratory rate 12 /min Dr. Luis M Lama Work Phone: [facility] [place] 12-23-2022 11:38-0400 SaO2% (BldA) [Mass fraction] 98 % Dr. Luis M Lama Work Phone: [facility] [place] 12-23-2022 11:38-0400 Systolic blood pressure 160 mm[Hg] Dr. Luis M Lama Work Phone: [facility] [place] 10-31-2022 08:53-0400 Body height 166.[address] Luis M Lama Work Phone: [facility] [place] 10-31-2022 08:53-0400 Body mass index (BMI) [Ratio] 27.8 kg/m2 Dr. Luis M Lama Work Phone: [facility] [place] 10-31-2022 08:53-0400 Body weight 77.[address] Luis M Lama Work Phone: [facility] [place] 10-31-2022 08:53-0400 Diastolic blood pressure 68 mm[Hg] Dr. Luis M Lama Work Phone: [facility] [place] 10-31-2022 08:53-0400 Heart rate 52 /min Dr. Luis M Lama Work Phone: [facility] [place] 10-31-2022 08:53-0400 Respiratory rate 18 /min Dr. Luis M Lama Work Phone: [facility] [place] 10-31-2022 08:53-0400 SaO2% (BldA) [Mass fraction] 94 % Dr. Luis M Lama Work Phone: [facility] [place] 10-31-2022 08:53-0400 Systolic blood pressure 121 mm[Hg] Dr. Luis M Lama Work Phone: [facility] [place] 10-22-2022 15:59-0400 Diastolic blood pressure 95 mm[Hg] Dr. Luis M Lama Work Phone: [facility] [place] 10-22-2022 15:59-0400 Heart rate 75 /min Dr. Luis M Lama Work Phone: [facility] [place] 10-22-2022 15:59-0400 Respiratory rate 15 /min Dr. Luis M Lama Work Phone: [facility] [place] 10-22-2022 15:59-0400 SaO2% (BldA) [Mass fraction] 98 % Dr. Luis M Lama Work Phone: [facility] [place] 10-22-2022 15:59-0400 Systolic blood pressure 162 mm[Hg] Dr. Luis M Lama Work Phone: [facility] [place] 10-22-2022 13:41-0400 Body height 166.[address] Luis M Lama Work Phone: [facility] [place] 10-22-2022 13:41-0400 Body mass index (BMI) [Ratio] 27.6 kg/m2 Dr. Luis M Lama Work Phone: [facility] [place] 10-22-2022 13:41-0400 Body temperature 96.9 [degF] Dr. Luis M Lama Work Phone: [facility] [place] 10-22-2022 13:41-0400 Body weight 76.[address] Luis M Lama Work Phone: [facility] [place] 08-03-2022 15:45-0400 Body height 166.[address] Luis M Lama Work Phone: [facility] [place] 08-03-2022 15:43-0400 Body mass index (BMI) [Ratio] 29.2 kg/m2 Dr. Luis M Lama Work Phone: [facility] [place] 08-03-2022 15:43-0400 Body weight 79.[address] Luis M Lama Work Phone: [facility] [place] 08-03-2022 15:43-0400 Diastolic blood pressure 83 mm[Hg] Dr. Luis M Lama Work Phone: [facility] [place] 08-03-2022 15:43-0400 Heart rate 55 /min Dr. Luis M Lama Work Phone: [facility] [place] 08-03-2022 15:43-0400 Respiratory rate 18 /min Dr. Luis M Lama Work Phone: [facility] [place] 08-03-2022 15:43-0400 SaO2% (BldA) [Mass fraction] 99 % Dr. Luis M Lama Work Phone: [facility] [place] 08-03-2022 15:43-0400 Systolic blood pressure 152 mm[Hg] Dr. Luis M Lama Work Phone: [facility] [place] 06-27-2022 09:47-0500 Body height 166.[address] Luis M Lama Work Phone: [facility] [place] 06-27-2022 09:47-0500 Body mass index (BMI) [Ratio] 27.1 kg/m2 Dr. Luis M Lama Work Phone: [facility] [place] 06-27-2022 09:47-0500 Body temperature 98 [degF] Dr. Luis M Lama Work Phone: [facility] [place] 06-27-2022 09:47-0500 Body weight 75.[address] Luis M Lama Work Phone: [facility] [place] 06-27-2022 09:47-0500 Diastolic blood pressure 70 mm[Hg] Dr. Luis M Lama Work Phone: [facility] [place] 06-27-2022 09:47-0500 Heart rate 52 /min Dr. Luis M Lama Work Phone: [facility] [place] 06-27-2022 09:47-0500 Respiratory rate 18 /min Dr. Luis M Lama Work Phone: [facility] [place] 06-27-2022 09:47-0500 SaO2% (BldA) [Mass fraction] 96 % Dr. Luis M Lama Work Phone: [facility] [place] 06-27-2022 09:47-0500 Systolic blood pressure 126 mm[Hg] Dr. Luis M Lama Work Phone: [facility] [place] 04-13-2022 10:49-0500 Body height 166.[address] Luis M Lama Work Phone: [facility] [place] Work Phone: 04-13-2022 10:46-0500 Body mass index (BMI) [Ratio] 28.8 kg/m2 Dr. Luis M Lama Work Phone: [facility] [place] 04-13-2022 10:46-0500 Body weight 78.[address] Luis M Lama Work Phone: [facility] [place] 04-13-2022 10:46-0500 Diastolic blood pressure 70 mm[Hg] Dr. Luis M Lama Work Phone: [facility] [place] 04-13-2022 10:46-0500 Heart rate 58 /min Dr. Luis M Lama Work Phone: [facility] [place] 04-13-2022 10:46-0500 Respiratory rate 18 /min Dr. Luis M Lama Work Phone: [facility] [place] 04-13-2022 10:46-0500 SaO2% (BldA) [Mass fraction] 100 % Dr. Luis M Lama Work Phone: [facility] [place] 04-13-2022 10:46-0500 Systolic blood pressure 142 mm[Hg] Dr. Luis M Lama Work Phone: [facility] [place] 04-04-2022 13:14-0500 Body mass index (BMI) [Ratio] 27.7 kg/m2 Dr. Luis M Lama Work Phone: [facility] [place] 04-04-2022 13:14-0500 Body temperature 97.4 [degF] Dr. Luis M Lama Work Phone: [facility] [place] 04-04-2022 13:14-0500 Body weight 76.[address] Luis M Lama Work Phone: [facility] [place] 04-04-2022 13:14-0500 Diastolic blood pressure 66 mm[Hg] Dr. Luis M Lama Work Phone: [facility] [place] 04-04-2022 13:14-0500 Heart rate 60 /min Dr. Luis M Lama Work Phone: [facility] [place] 04-04-2022 13:14-0500 Respiratory rate 18 /min Dr. Luis M Lama Work Phone: [facility] [place] 04-04-2022 13:14-0500 SaO2% (BldA) [Mass fraction] 98 % Dr. Luis M Lama Work Phone: [facility] [place] 04-04-2022 13:14-0500 Systolic blood pressure 147 mm[Hg] Dr. Luis M Lama Work Phone: [facility] [place] 10-21-2021 10:07-0400 Body height 165.[address] Luis M Lama Work Phone: [facility] [place] Work Phone: 10-21-2021 10:07-0400 Body mass index (BMI) [Ratio] 29.5 kg/m2 Dr. Luis M Lama Work Phone: [facility] [place] Work Phone: 10-21-2021 10:07-0400 Body weight 80.[address] Luis M Lama Work Phone: [facility] [place] Work Phone: 10-21-2021 10:07-0400 Diastolic blood pressure 64 mm[Hg] Dr. Luis M Lama Work Phone: [facility] [place] Work Phone: 10-21-2021 10:07-0400 Heart rate 56 /min Dr. Luis M Lama Work Phone: [facility] [place] Work Phone: 10-21-2021 10:07-0400 Respiratory rate 16 /min Dr. Luis M Lama Work Phone: [facility] [place] Work Phone: 10-21-2021 10:07-0400 Systolic blood pressure 130 mm[Hg] Dr. Luis M Lama Work Phone: [facility] [place] Work Phone: Encounters Encounter Date Encounter Type Care Provider Facility Start: 03-19-2025 ambulatory Luis M Lama Facility: [facility] Start: 03-12-2025 ambulatory Luis M Kelby Facility: [facility] Start: 03-05-2025 ambulatory Luis M Kelby Facility: [facility] Start: 02-19-2025 ambulatory Luis M Kelby Facility: [facility] Start: 02-12-2025 ambulatory Luis M Kelby Facility: [facility] Start: 02-05-2025 ambulatory Luis M Kelby Facility: [facility] Start: 01-29-2025 ambulatory Luis M Lama Facility: [facility] Start: 01-15-2025 ambulatory Luis M Lama Facility: [facility] Start: 01-08-2025 ambulatory Luis M Lama Facility: [facility] Start: 01-01-2025 ambulatory Luis M Lama [facility]: [facility] Start: 12-27-2024 ambulatory Luis M Lama Facility: [facility] Start: 12-25-2024 ambulatory Luis M Lama Facility: [facility] Start: 12-18-2024 ambulatory Luis M Lama Facility: [facility] Start: 12-11-2024 ambulatory Luis M Lama Facility: [facility] Start: 12-04-2024 ambulatory Luis M Lama Facility: [facility] Start: 11-27-2024 ambulatory Luis M Lama Facility: [facility] Start: 11-20-2024 ambulatory Luis M Lama Facility: [facility] Start: 11-13-2024 End: 11-14-2024 ambulatory Luis M Lama Facility:[facility] [place] Start: 11-12-2024 End: 11-12-2024 ambulatory Gurdeep Martinez Facility:[facility] Start: 11-06-2024 ambulatory Gurdeep Martinez Facility :[facility] Start: 11-06-2024 End: 11-06-2024 ambulatory Gurdeep Martinez Facility:[facility] [place] Start: 10-30-2024 ambulatory Luis M Lama Facility: [facility] Start: 10-28-2024 End: 10-28-2024 ambulatory Gurdeep Martinez Facility:[facility] Start: 10-25-2024 End: 10-25-2024 ambulatory Gurdeep Martinez Facility:[facility] Start: 10-25-2024 End: 10-25-2024 ambulatory Gurdeep Martinez Facility:[facility] [place] Start: 10-23-2024 ambulatory Luis M Kelby [facility]: [facility] Start: 10-19-2024 End: 10-19-2024 Emergency department patient visit Sampson Melendez Facility:[facility] [place] Start: 10-16-2024 ambulatory Luis M Kelby Facility: [facility] Start: 10-09-2024 ambulatory Luis M Kelby Facility: [facility] Start: 10-02-2024 ambulatory Luis M Kelby Facility: [facility] Start: 09-25-2024 ambulatory Luis M Kelby Facility: [facility] Start: 09-18-2024 ambulatory Luis M Kelby Facility: [facility] Start: 09-11-2024 ambulatory Luis M Kelby [facility]: [facility] Start: 09-06-2024 End: 09-06-2024 ambulatory Luis M Kelby Facility:[facility] [place] Start: 09-04-2024 ambulatory Luis M Kelby Facility: [...] 05-20-2024 End: 05-20-2024 ambulatory Luis M Kelby Facility:[facility] [place] Start: 05-08-2024 ambulatory Luis M Kelby Facility: [facility] [place] Start: 04-23-2024 End: 04-23-2024 ambulatory Luis M Kelby Facility:[facility] [place] Start: 03-27-2024 End: 04-06-2024 ambulatory Luis M Kelby Facility:[facility] [place] Start: 03-22-2024 End: 03-22-2024 ambulatory Luis M Kelby Facility:[facility] [place] Start: 09-04-2023 End: 09-05-[address] Luis M Lama Work Phone: [facility] [place] Work Phone: Start: 09-04-2023 End: 09-05-[address] Luis M Lama Work Phone: [facility] Work Phone: Start: 08-16-2023 End: 08-16-[address] Luis M Lama Work Phone: [facility] [place] Work Phone: Start: 08-16-2023 End: 08-16-[address] Luis M Lama Work Phone: [facility] Work Phone: Start: 07-31-2023 End: 08-06-[address] Luis M Lama Work Phone: [facility] [place] Work Phone: Start: 07-31-2023 End: 08-06-[address] Luis M Lama Work Phone: [facility] Work Phone: Start: 07-03-2023 End: 07-03-[address] Luis M Lama Work Phone: [facility] Work Phone: Start: 07-03-2023 End: 07-06-[address] Luis M Lama Work Phone: [facility] [place] Work Phone: Start: 07-03-2023 End: 07-06-[address] Luis M aLma Work Phone: [facility] Work Phone: Start: 06-28-2023 Non-patient / Non-visit Dr. Julianna Lama Work Phone: [facility] Start: 06-28-2023 End: 06-28-[address] [facility] Start: 06-07-2023 Non-patient / Non-visit Dr. Julianna Lama Work Phone: [facility] Work Phone: Start: 06-07-2023 End: 06-07-[address] Luis M [facility] Work [facility]: Start: 05-31-2023 End: 05-31-[address] Luis M Lama Work Phone: [facility] [place] Work Phone: Start: 05-31-2023 End: 05-31-[address] Luis M Lama Work Phone: [facility] Work Phone: Start: 05-31-2023 End: 05-31-[address] Luis M Lama Work Phone: [facility] Work Phone: Start: 05-04-2023 End: 05-04-[address] Luis M Lama Work Phone: [facility] Work Phone: Start: 05-04-2023 End: 05-04-[address] Luis M Lama Work Phone: [facility] Work Phone: Start: 04-24-2023 End: 05-07-[address] Luis M Lama Work Phone: [facility] Work Phone: Start: 03-31-2023 Non-patient / Non-visit Dr. Julianna Lama Work Phone: [facility] Start: 03-31-[address] Luis M phillips [facility] Start: 03-27-2023 End: 04-06-[address] Luis M Lama Work Phone: [facility] [place] Work Phone: Start: 03-27-2023 End: 04-06-[address] Luis M Lama Work Phone: [facility] Work Phone: Start: 03-24-2023 End: 03-24-[address] Luis M Lama Work Phone: [facility] Work Phone: Start: 02-27-2023 End: 02-27-[address] Luis M Lama Work Phone: [facility] [place] Work Phone: Start: 02-27-2023 End: 02-27-[address] Luis M Lama Work Phone: [facility] Work Phone: Start: 01-30-2023 End: 01-30-[address] Luis M Lama Work Phone: [facility] Work Phone: Start: 01-02-2023 End: 01-02-[address] Luis M Lama Work Phone: [facility] Work Phone: Start: 12-29-2022 End: 12-29-[address] Luis M [facility] Work [facility]: Start: 12-23-2022 End: 12-23-[address] Luis M Lama Work Phone: [facility] Work Phone: Start: 12-05-2022 End: 12-05-[address] Luis M Lama Work Phone: [facility] [place] Work Phone: Start: 12-05-2022 End: 12-05-[address] [facility] M [facility] Start: 11-21-2022 End: 11-21-[address] Luis M Lama Work Phone: [facility] [place] Work Phone: Start: 11-21-2022 End: 11-21-[address] Luis M [facility] Start: 11-14-2022 End: 11-14-[address] Luis M Lama Work Phone: [facility] [place] Work Phone: Start: 11-14-2022 End: 11-14-[address] Luis M [facility] Start: 11-09-2022 End: 11-09-[address] Luis M Lama Work Phone: [facility] Work Phone: Start: 10-31-2022 End: 10-31-[address] Luis M Lama Work Phone: [facility] Work Phone: Start: 10-22-2022 End: 10-22-2022 Emergency department patient visit Dr. Luis M Lama Work Phone: [facility] [place] Start: 10-10-2022 End: 10-10-[address] Luis M Lama Work Phone: [facility] Start: 09-12-2022 End: 09-12-[address] Luis M Lama Work Phone: [facility] Work Phone: Start: 09-12-2022 End: 09-12-[address] Luis M Lama Work Phone: [facility] Start: 08-22-2022 End: 09-04-[address] Luis M Lama Work Phone: [facility] Start: 08-08-[address] Luis M Lama Work Phone: [facility] Start: 08-03-2022 End: 08-03-[address] Luis M Lama Work Phone: [facility] Start: 08-01-2022 End: 08-01-[address] Luis M Lama Work Phone: [facility] Work Phone: Start: 08-01-2022 End: 08-01-[address] Luis M Lama Work Phone: [facility] Start: 07-25-2022 End: 07-25-[address] Luis M Lama Work Phone: [facility] Work Phone: Start: 07-25-2022 End: 07-25-[address] Luis M Lama Work Phone: [facility] [place] Start: 07-21-2022 End: 07-21-[address] Luis M Lama Work Phone: [facility] Work Phone: Start: 07-21-2022 End: 07-21-[address] Luis M Lama Work Phone: [facility] [place] Services/Neurology Start: 07-18-2022 End: 07-18-[address] Luis M Lama Work Phone: [facility] Work Phone: Start: 07-18-2022 End: 07-18-[address] Luis M Lama Work Phone: [facility] [place] Start: 06-27-2022 End: 06-27-[address] Luis M Lama Work Phone: [facility] Start: 04-13-2022 End: 04-13-[address] Luis M Lama Work Phone: [facility] Start: 04-11-2022 End: 04-11-[address] Luis M aLma Work Phone: [facility] Work Phone: Start: 04-11-2022 End: 04-11-[address] Lius M Lama [facility] Phone[facility] Start: 04-05-2022 End: 04-05-[address] Luis M Lama Work Phone: [facility] [place] Start: 04-04-2022 End: 04-04-[address] Luis M Lama Work Phone: [facility] Start: 03-17-2022 End: 03-17-2022 ambulatory [facility] Work Phone: Start: 03-17-2022 End: 03-17-2022 [facility] Start: 10-22-2021 End: 10-22-[address] Luis M Lama Work Phone: [facility] [place] Start: 10-21-2021 End: 10-21-[address] Luis M Lama Work Phone: [facility] Start: 07-23-[address] Luis M phillips Work Phone: [facility] [place]Card[facility] Procedures Date Procedure Procedure Detail Performing [...] Activity Detail Author Patient Education [facility] Work Phone: Patient referral [facility] Work Phone: Immunizations Immunization Date Immunization Notes Care Provider Fa merced 06-25-2020 Covid (Moderna) Dr. Luis M woo Work Phone: [facility] 05-28-2020 Covid (Moderna) Dr. Luis M woo Work Phone: [facility] Payers Date Payer Category Payer Self-pay [id number] 2024 Unknown [id number] 2015 Private Health Insurance [id number] 2002 Medicare [id number] Unknown [id number] 2.16.8 40.1.755606.3.579.2.462 Unknown [id number] 2.16.8 40.1.633928.3.579.2.462 Unknown [id number] 2.16.8 40.1.004969.3.579.2.462 Unknown [id number] 2.16.8 40.1.897107.3.579.2.462 Unknown [id number] 2.16.8 40.1.736810.3.579.2.462 Unknown [id number] 2.16.8 40.1.024721.3.579.2.462 Unknown [id number] 2.16.8 40.1.781736.3.579.2.462 Unknown [id number] 2.16.8 40.1.163635.3.579.2.462 Unknown [id number] 2.16.8 40.1.274673.3.579.2.462 Unknown [id number] 2.16.8 40.1.406595.3.579.2.462 Unknown [id number] 2.16.8 40.1.605904.3.579.2.462 Unknown [id number] 2.16.8 40.1.019117.3.579.2.462 Unknown [id number] 2.16.8 40.1.694837.3.579.2.462 Unknown [id number] 2.16.8 40.1.729819.3.579.2.462 Unknown [id number] 2.16.8 40.1.973040.3.579.2.462 Unknown [id number] 2.16.8 40.1.775861.3.579.2.462 Unknown [id number] 2.16.8 40.1.907587.3.579.2.462 Unknown [id number] 2.16.8 40.1.654144.3.579.2.462 Unknown [id number] 2.16.8 40.1.946740.3.579.2.462 Unknown [id number] 2.16.8 40.1.563603.3.579.2.462 Unknown [id number] 2.16.8 40.1.919767.3.579.2.462 Unknown [id number] 2.16.8 40.1.785349.3.579.2.462 Unknown [id number] 2.16.8 40.1.228588.3.579.2.462 Unknown [id number] 2.16.8 40.1.487546.3.579.2.462 Unknown [id number] 2.16.8 40.1.091671.3.579.2.462 Unknown [id number] 2.16.8 40.1.051156.3.579.2.462 Unknown [id number] 2.16.8 40.1.254869.3.579.2.462 Unknown [id number] 2.16.8 40.1.960302.3.579.2.462 Unknown [id number] 2.16.8 40.1.150501.3.579.2.462 Unknown [id number] 2.16.8 40.1.222308.3.579.2.462 Unknown [id number] 2.16.8 40.1.040635.3.579.2.462 Unknown [id number] 2.16.8 40.1.802421.3.579.2.462 Unknown [id number] 2.16.8 40.1.116576.3.579.2.462 Unknown [id number] 2.16.8 40.1.823720.3.579.2.462 Unknown [id number] 2.16.8 40.1.697358.3.579.2.462 Unknown [id number] 2.16.8 40.1.878951.3.579.2.462 Unknown [id number] 2.16.8 40.1.726519.3.579.2.462 Unknown [id number] 2.16.8 40.1.271993.3.579.2.462 Unknown [id number] 2.16.8 40.1.304886.3.579.2.462 Unknown [id number] 2.16.8 40.1.310224.3.579.2.462 Unknown [id number] 2.16.8 40.1.955725.3.579.2.462 Unknown [id number] 2.16.8 40.1.901532.3.579.2.462 Unknown [id number] 2.16.8 40.1.140610.3.579.2.462 Unknown [id number] 2.16.8 40.1.050852.3.579.2.462 Unknown [id number] 2.16.8 40.1.727298.3.579.2.462 Unknown [id number] 2.16.8 40.1.025178.3.579.2.462 Unknown [id number] 2.16.8 40.1.008336.3.579.2.462 Unknown [id number] 2.16.8 40.1.297389.3.579.2.462 Unknown [id number] 2.16.8 40.1.373619.3.579.2.462 Unknown [id number] 2.16.8 40.1.299406.3.579.2.462 Unknown [id number] 2.16.8 40.1.156285.3.579.2.462 Unknown [id number] 2.16.8 40.1.974487.3.579.2.462 Social History Date Type Detail Facility Start: 10-21-2021 End: 07-03-2023 Tobacco smoking status NHIS Unknown if ever smoked [facility] Start: 04-17-2018 Non-smoker [facility] Start: 1935 Sex Assigned At Female W [facility] Mental Status Date Assessment Result Facility 10-22-2022 Cognitive function Awake;Alert;A ppropriate;Fol lows Commands [facility] Work Phone: Clinical Notes 08-06-2017 Note Date & Type Note Facility 08-06-2017 Evaluation note Diagnosis Onset Date Family history of colon canc er in mother acute Personal history of colonic polyps acute On amiodarone therapy acute History of radiofrequency ab lation procedure for cardiac arrhythmia 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, 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 Paroxysmal A-fib [facility] Work Phone: 1(355) 213-962604-01-2018 Evaluation note* Diagnosis Onset Date Resolution Status Family history of colon cancer in mother acute Personal history of colonic polyps acute On amiodarone therapy acute History of radiofrequency ab lation procedure for cardiac arrhythmia August, chronic nursing home current use of 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 chronic Paroxysmal A-fib chronic Bradycardia acute Essential hypertension chron ic nursing home current use of 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 chronic Paroxysmal A-fib [facility] Work Phone: 1(746) 998-463804-01-2018 Evaluation note* Diagnosis Onset Date Resolution Status On amiodarone therapy acute History of radiofrequency ab lation procedure for cardiac arrhythmia August, chronic nursing home current use of 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 chronic Paroxysmal A-fib chronic Bradycardia acute 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 Paroxysmal A-fib [facility] Work Phone: Evaluation note* Diagnosis Onset Date Resolution Status Fatigue acute Essential hypertension chron ic Paroxysmal A-fib chronic Pure hypercholesterolemia ch ronic [facility] Work Phone: Evaluation noteNo assessment information available [facility] Work Phone: Evaluation note* Diagnosis Onset Date Resolution Status Family history of colon cancer in mother acute Personal history of colonic polyps acute Essential hypertension chron ic Paroxysmal A-fib chronic Pure hypercholesterolemia [facility] Work Phone: Evaluation note* Diagnosis Onset Date Resolution Status Family history of colon cancer in mother acute Personal history of colonic polyps acute Essential hypertension chron ic Paroxysmal A-fib chronic Pure hypercholesterolemia ch [facility] Acute bronchitis acute [facility] Work Phone: Evaluation note* Diagnosis Onset Date Resolution Status Essential hypertension chron ic Paroxysmal A-fib chronic Pure hypercholesterolemia ch ronic Acute bronchitis acute Essential hypertension chron ic Paroxysmal A-fib chronic Pure hypercholesterolemia [facility] Work Phone: Evaluation note* Diagnosis Onset Date Resolution Status Acute bronchitis acute Essential hypertension chron ic Paroxysmal A-fib chronic Pure hypercholesterolemia [facility] Work Phone: Evaluation note* Diagnosis Onset Date Resolution Status Essential hypertension chron ic Paroxysmal A-fib chronic Pure hypercholesterolemia ch ronic Essential hypertension chron ic Paroxysmal A-fib chronic Pure hypercholesterolemia [facility] Work Phone: Evaluation note* Diagnosis Onset Date Resolution Status Essential hypertension chron ic Paroxysmal A-fib chronic Pure hypercholesterolemia [facility] Work Phone: Evaluation note* Diagnosis Onset Date Resolution Status Dysfunction of right eustachian tube acute [facility] Work Phone: Evaluation note* Diagnosis Onset Date Resolution Status Dysfunction of right eustachian tube acute Family history of colon cancer in mother acute Personal history of colonic polyps acute [facility] Work Phone: Evaluation note* Diagnosis Onset Date Resolution Status Family history of colon cancer in mother acute Personal history of colonic polyps acute [facility] Work Phone: Hospital Discharge instructions Additional Instructions [...] Please follow with your primary care physician, algorithm developer for further outpatient evaluation and management of your blood pressure medication.[facility] Work Phone: Chief Complaint and Reason for Visit 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 for Visit [...] DRAW LABWORK HOME DRAW A FIB, HOLTER 3 INR- Reason for Visit Essential hypertensi on Paroxysmal A-fib Pure hypercholesterolemia Acute bronchitis Essential hypertension Paroxysmal A-fib Pure hypercholesterolemia Chief Complaint POSSIBLE STREP THROA T HOMEDRAW LABWORK Paroxysmal atrial fibrillation HOME DRAW LABWORK HOME DRAW A FIB, HOLTER 16 INR- LABWORK Reason for Visit Acute bronchitis [...] of radiofrequency ablation procedure for cardiac arrhythmia nursing home current use of 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 Paroxysmal A-fib [...] of radiofrequency ablation procedure for cardiac arrhythmia nursing home current use of 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 Paroxysmal A-fib Bradycardia Essential hypertension 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 Paroxysmal A-fib Chief Complaint INR- ADD EORDER AND ADDT ORDER 4 m fu PREV PFM PT INR- ADD EORDER AND ADDT ORDER AFIB Atrial fibrillation AFIB s/o INR 1 M FU s/o INR ADD ORDER FROM DR LAMA 07/31/23 Reason for Visit On amiodarone therap y History of radiofrequency ablation procedure for cardiac arrhythmia nursing home current use of 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 Paroxysmal A-fib Bradycardia 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 hypertension 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 Paroxysmal A-fib Chief Complaint 4 m fu PREV PFM PT INR- ADD EORDER AND ADDT ORDER AFIB Atrial fibrillation AFIB s/o INR 1 M FU s/o INR ADD ORDER FROM DR LAMA 07/31/23 Reason for Visit On amiodarone therap y History of radiofrequency ablation procedure for cardiac arrhythmia nursing home current use of 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 Paroxysmal A-fib Bradycardia 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 hypertension 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 Paroxysmal A-fib Chief Complaint 4 m fu PREV PFM PT INR- ADD EORDER AND ADDT ORDER AFIB Atrial fibrillation AFIB s/o INR 1 M FU s/o INR ADD ORDER FROM DR LAMA 07/31/23 s/o INR Reason for Visit On amiodarone therap y History of radiofrequency ablation procedure for cardiac arrhythmia 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 Paroxysmal A-fib Bradycardia Essential hypertension 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 Paroxysmal A-fib Family [...] Yes January 26, 2021 5:48am Power of Composite Science Teacher Yes January 5:48am Advance Directive Response Recorded Date/ Time Living Will Yes January 26, 2021 4:48am Power of Composite Science Teacher Yes January 4:48am Advance Directive Response Recorded Date/ Time Name of Medical Power of Composite Science Teacher SIVA CHEATHAM October 22, 2022 2:15pm Living Will Yes October 22, 2022 2:15pm Power of Composite Science Teacher Yes October 22 3 2:15pm Advance Directive Response Recorded Date/ Time Living Will Yes October 22, 2022 2:15pm Power of Composite Science Teacher Yes October 22 3 2:15pm Advance Directive Response Recorded Date/ Time Living Will Yes October 22, 2022 1:15pm Power of Composite Science Teacher Yes October 22 1:15pm Summary Purpose Additional [...] Provider, Referrin g Provider Active Shawna Plaza UNARMED SECURITY OFFICER, UNARMED SECURITY OFFICER-C Attending Provider Active Team Status: Active Member Role Status Dates Dr. Luis M Lama DO Primary Care Provider Active Shawna Plaza UNARMED SECURITY OFFICER, UNARMED SECURITY OFFICER-C Attending Provider, Referring P geremiasder Active Team Status: Inactive Member Role Status Dates Dr. Luis M Lama DO Primary Care Provider Active Shawna Plaza UNARMED SECURITY OFFICER, UNARMED SECURITY OFFICER-C Attending Provider, Referring P rovider Active Team Status: Inactive Member Role Status Dates Dr. Luis M Lama , DO Primary Care Provider Active Dr. Estevan Riley , DO Emergency Provider Active Team Status: Inactive Member Role Status Dates Dr. Luis M Lama , DO Primary Care Provider Active Dr. Estevan Riley , DO Attending Provider, Emergency P rovider Active Team Status: Inactive Member Role Status Dates Dr. Luis M Lama , DO Primary Care Prov ider, Attending Provider, [...] Role Status Dates Dr. Luis M Lama , DO Primary Care Provider, Other Pr ovider Active Shawna Plaza UNARMED SECURITY OFFICER, UNARMED SECURITY OFFICER-C Attending Provider, Referring P rovider Active Team [...] DO Primary Care Provider Active Shawna Plaza UNARMED SECURITY OFFICER, UNARMED SECURITY OFFICER-C Attending Provider, Referring P rovider Active Dr. [...] DO Primary Care Provider Active Shawna Plaza UNARMED SECURITY OFFICER, UNARMED SECURITY OFFICER-C Attending Provider, Referring P rovider Active Dr. Gurdeep Martinez MD Other Provider Active Hung Keyes UNARMED SECURITY OFFICER, UNARMED SECURITY OFFICER-C Other Provider Active Team Status: Inactive Member Role Status Dates Dr. Luis M Lama , DO Primary Care Provider, Other Pr ovider Active Shawna Plaza UNARMED SECURITY OFFICER, UNARMED SECURITY OFFICER-C Attending Provider, Referring P olive Active Dr. Gurdeep Martinez MD Other Provider Active Hung Keyes UNARMED SECURITY OFFICER, UNARMED SECURITY OFFICER-C Other Provider Active INFORMATION SOURCE (unrecogn ized section and content) DATE CREATED AUTHOR 03/21/2025 [facility] FOR RECORDS PERTAINING TO PATIENTS WHO ARE [...] BE BASED ON THE PRIMARY CLINICAL RECORDS. [employer] provides no warranty or guarantee of the accuracy or completeness of information in this document.
[2025-04-13 08:12] LABS: Hematocrit 36.6 % (37-47); Hemoglobin 11.9 g/dL (12.0-15.0); Immature Granulocytes Count 0.010 X10^3/uL (0.0-0.0); Mean Corp Hgb Conc 32.5 g/dL (32-36); Mean Corpuscular Volume 96.6 fL (81-99); Mean Platelet Vol. 9.7 fl (6.2-12.0); NRBC Flagged by Analyzer 0 % (0-5); Platelet Count 211 K/mm3 (150-450); RBC Distribution Width CV 13.1 % (11.6-14.6); RBC Distribution Width SD 46.6 fl (35.1-43.9); Red Blood Count 3.79 M/mm3 (4.2-5.4); White Blood Count 4.5 K/mm3 (4.4-11.0)
[2025-04-13 08:38] LABS: Prothrombin Time (Protime)PT. 23.3 SECONDS (11.7-14.9)
[2025-04-13 08:43] LABS: Mucous, Urine 0 SEEN /hpf (<or=2+); Red Blood Cells-Urine 0 SEEN /hpf (0-5)
[2025-04-13 08:44] LABS: Color, Urine Yellow (Yellow); Glucose, Dipstick Normal (Normal); Ketone-Dipstick Negative (Negative); Leukocyte Esterase-Dipstick 500 /ul (Negative); Nitrite-Dipstick Positive (Negative); Occult Blood-Urine 25 /ul (Negative); Protein-Dipstick Negative (Negative); Specific Gravity, Urine 1.010 (1.002-1.030); Urine Bilirubin Dipstick Negative (Negative)
[2025-04-13 08:47] LABS: Troponin T High Sensitivity 15 ng/L (<=14)
[2025-04-13 08:50] LABS: Squamous Epithelial Cells - UA 0-5 SEEN /hpf (5-10)
[2025-04-13 08:50] LABS: AST(SGOT) 22 U/L (<=31); Alanine Aminotransfer ALT/SGPT 14 U/L (<=34); Albumin, Serum 4.0 g/dL (3.4-4.8); Alkaline Phosphatase 83 U/L (35-104); Anion Gap 9 (5-15); BUN 20 mg/dL (4-19); BUN/Creat Ratio 26.5 RATIO (10-20); Calcium,Total 9.5 mg/dL (7.6-11.0); Carbon Dioxide 27.6 mmol/L (21.0-32.0); Chloride 103 mmol/L (98-108); Estimated Creatinine Clearance 48.33 ml/min (50-250); Globulin 2.3 g/dL (2.2-4.2); Glucose 91 mg/dL (70-99); Potassium 4.1 mmol/L (3.3-5.1)
[2025-04-13 09:54] VITALS: BP 157/66; PULSE 64; RESP 18; O2SAT 99
[2025-04-13 10:16] LABS: Troponin T High Sens 2 HR 14 ng/L (<=14)
[2025-04-13 10:47] VITALS: BP 166/78; PULSE 64; RESP 18; TEMP 36.6; O2SAT 99
== END 2025-04-13 11:12 | disposition home or self-care (01) ==
PROVIDERS: Emergency Provider Emergency Medicine; PCP Family Medicine; Visit Provider Emergency Medicine
DX: N30.00 Acute cystitis without hematuria (principal); F03.90 Unspecified dementia, unspecified severity, without behavioral disturbance, psychotic disturbance, mood disturbance, and anxiety; R53.1 Weakness; I10 Essential (primary) hypertension; Z87.891 Personal history of nicotine dependence; R11.0 Nausea; E78.00 Pure hypercholesterolemia, unspecified; K21.9 Gastro-esophageal reflux disease without esophagitis; Z79.01 Long term (current) use of 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s
CPT/HCPCS: 71045; 80053; 81001; 84484; 85025; 85610; 87077; 87086; 87088; 87186; 93005; 96365; 96375; 99283; A4216; J2405